=== PATIENT | male | born 1995 | race Caucasian/White ===

== ENCOUNTER 2016-09-11 22:36 | Emergency (ER) | payer OTHER ==
[2016-09-11] MEDS ORDERED: IBUPROFEN 800 MG TAB As Ordered ONE (23:39)
--- NOTE | 2016-09-11 23:47 | EDDOCDS ---
Physician Documentation [facility] Name: Mickey Montilla Age: 21 yrs Sex: Male : 1995 Arrival Date: 09/11/2016 Time: 22:36 Bed Triage 2 Private MD: [facility] - Pediatrics Disposition: 09/11/16 23:31 Discharged to Home/Self Care. Impression: Pain in right knee, Sprain of other specified parts of right knee. - Condition is Stable. - Discharge Instructions: Arthralgia, Knee Sprain. - Prescriptions for Ibuprofen 800 mg Oral Tablet - take 1 tablet by ORAL route every 8 hours As needed take with food; 30 tablet. - Medication Reconciliation, Local Pharmacy Hours form. - Follow up: [facility] - Pediatrics; When: Call to arrange an appointment; Reason: Recheck today's complaints, Continuance of care. Follow up: [facility]; When: Call to arrange an appointment; Reason: Recheck today's complaints, Continuance of care. - Problem is new. - Symptoms are unchanged. Historical: - Allergies: no known allergies; - Home Meds: 1. omeprazole 20 mg Oral cpDR 1 cap once daily (Last dose: 09/10/2016) - PMHx: GERD; Diabetes - NIDDM: controlled; chronic knee pain; - PSHx: none; - Social history: Smoking status: Patient states was never smoker of tobacco. Patient/guardian denies using alcohol, street drugs, No barriers to communication noted, The patient speaks fluent Zimbabwean, Speaks appropriately for age. - Family history: Not pertinent. - : The pt / caregiver states he / she is not on anticoagulants. Home medication list is obtained from the patient. - Exposure Risk Screening:: None identified. Vital Signs: 09/11 22:37 BP 155 / 86; Pulse 81; Resp 16; Temp 97.6(O); Pulse Ox 100% on R/A; Weight 99.79 kg / lr2 220 lbs (R); Height 5 ft. 9 in. (175.26 cm) (R); Pain 9/10; 23:43 Resp 16; Pain 8/10; lf1 22:37 Body Mass Index 32.49 (99.79 kg, 175.26 cm) lr2 MDM: 23:27 Justen Wrap ordered. mo1 23:28 Ibuprofen 800 mg PO once ordered. mo1 23:40 Financial registration complete. hs2 Administered Medications: 23:43 Drug: Ibuprofen 800 mg [ibuprofen 800 mg tablet (1 tabs)] Route: PO; lf1 23:46 Follow up: Response: Pt left department before re-evaluation is appropriate lf1 Signatures: Lolis Saucedo RN RN lf1 Elizabeth Barboza RN RN ttb O'Hagan, Michael, PA PA mo1 Yudi Saunders, Reg Reg hs2 MTDD
--- NOTE | 2016-09-11 23:47 | EDDOCDS ---
Nurse's Notes [facility] Name: Mickey Montilla Age: 21 yrs Sex: Male : 1995 Arrival Date: 09/11/2016 Time: 22:36 Bed Triage 2 Private MD: [facility] - Pediatric[facility] Diagnosis: Pain in right knee;Sprain of other specified parts of right knee Presentation: 09/11 22:47 Presenting complaint: Patient states: right knee pain : chronic. Adult Sepsis ttb Screening: The patient does not have new or worsening altered mentation. Patient's respiratory rate is less than 22. Systolic blood pressure is greater than 100. Patient has a qSOFA score of 0- Negative Sepsis Screen. Suicide/Homicide risk assessment- the patient denies having any suicidal and/or homicidal ideations and does not present with any other emotional, behavioral or mental health complaints. 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 Transition of care: patient was not received from another setting of care. 22:47 Acuity: TRAM Level 5 ttb 22:47 Method Of Arrival: Walkin/Carried/Asstd ttb Triage Assessment: 22:48 General: Appears in no apparent distress, well nourished, well groomed, Behavior is ttb appropriate for age, cooperative, pleasant. Pain: Location: medial aspect of right knee. HIV screening NA for this visit Offered previously. Cardiovascular: Chest pain is denied. Respiratory: No deficits noted. Airway is patent Denies cough, shortness of breath. Musculoskeletal: Range of motion intact in all extremities. Reports pain in right knee. Historical: - Allergies: no known allergies; - Home Meds: 1. omeprazole 20 mg Oral cpDR 1 cap once daily (Last dose: 09/10/2016) - PMHx: GERD; Diabetes - NIDDM: controlled; chronic knee pain; - PSHx: none; - Social history: Smoking status: Patient states was never smoker of tobacco. Patient/guardian denies using alcohol, street drugs, No barriers to communication noted, The patient speaks fluent [place] Rican, Speaks appropriately for age. - Family history: Not pertinent. - : The pt / caregiver states he / she is not on anticoagulants. Home medication list is obtained from the patient. - Exposure Risk Screening:: None identified. Screenin:54 Screening information is obtained from the patient. Fall risk: No risks identified. lf1 Assistance ADL's: requires no assistance with activities of daily living. Abuse/DV Screen: The patient / caregiver reports he/she is: not in a situation that causes fear, pain or injury. Nutritional screening: No deficits noted. Advance Directives: Currently, there is no health care proxy. home support is adequate. Assessment: 22:54 Adult Sepsis Screening: The patient does not have new or worsening altered mentation. lf1 Patient's respiratory rate is less than 22. Systolic blood pressure is greater than 100. Patient has a qSOFA score of 0- Negative Sepsis Screen. General: Appears in no apparent distress, comfortable, Behavior is cooperative. General: Pt. reports he has been a pt. of [facility] for the same problem. Pain: Location: medial aspect of right knee Pain currently is 8 out of 10 on a pain scale. Neurological: Level of Consciousness is awake, alert, Oriented to person, place, time. EENT: No deficits noted. Respiratory: Respiratory effort is even, unlabored. GI: Denies nausea, vomiting. : No deficits noted. Derm: Skin is intact. Musculoskeletal: Reports pain in medial aspect of right knee since chronic pain over several years that became worse today. 23:43 General: Appears in no apparent distress, comfortable, Behavior is cooperative. Pain: lf1 Location: medial aspect of right knee Pain currently is 8 out of 10 on a pain scale. Neurological: Level of Consciousness is awake, alert, Oriented to person, place, time. Respiratory: Respiratory effort is even, unlabored. GI: Denies nausea, vomiting. Derm: Skin is intact. Vital Signs: 22:37 BP 155 / 86; Pulse 81; Resp 16; Temp 97.6(O); Pulse Ox 100% on R/A; Weight 99.79 kg lr2 (R); Height 5 ft. 9 in. (175.26 cm) (R); Pain 9/10; 23:43 Resp 16; Pain 8/10; lf1 22:37 Body Mass Index 32.49 (99.79 kg, 175.26 cm) lr2 Vitals: 22:37 Log In Time: September 11, 2016 at 22:36. lr2 ED Course: 22:37 Patient visited by Annette Alexander. lr2 22:37 Patient moved to Waiting lr2 22:38 [facility] is Private Physician. lr2 22:39 Patient moved to Pre RCE lr2 22:47 Triage Initiated ttb 22:49 Patient moved to Triage 2 ttb 22:54 The patient / caregiver is instructed regarding the plan of care and ED course. lf1 22:57 Patient visited by Lolis Saucedo RN. lf1 23:12 Ousmane Hernandez PA is PHCP. mo1 23:13 Ryan Gregory DO is Attending Physician. mo1 23:16 Patient visited by Ousmane Hernandez PA. mo1 23:31 [facility] is Referral Physician. mo1 23:31 [facility] is Referral Physician. mo1 23:43 No IV's were initiated during this patient's visit. No procedures done that require lf1 assistance. Administered Medications: 23:43 Drug: Ibuprofen 800 mg [ibuprofen 800 mg tablet (1 tabs)] Route: PO; lf1 23:46 Follow up: Response: Pt left department before re-evaluation is appropriate lf1 Order Results: There are currently no results for this order. Outcome: 23:31 Discharge ordered by Provider. mo1 23:43 Discharge Assessment: Patient awake, alert and oriented x 3. No cognitive and/or lf1 functional deficits noted. Patient verbalized understanding of disposition instructions. Patient awake and alert. Oriented to person, place and time. Patient verbalized understanding of disposition instructions. patient administered narcotics - no. The following High Risk Discharge criteria are identified: None. Discharged to home ambulatory. Condition: improved. Discharge instructions given to patient, Instructed on discharge instructions, follow up and referral plans. medication usage, Rest, Ice, Compression and Elevation. Demonstrated understanding of instructions, medications, Pt was receptive of discharge instructions/ teaching. Prescriptions given X 1. No special radiology studies were completed. Property :Personal belongings accompany Pt. 23:46 Patient left the ED. lf1 Signatures: Lolis Saucedo RN RN lf1 Elizabeth Barboza RN RN ttb Ousmane Hernandez PA PA mo1 Annette Alexander lr2 MTDD
--- NOTE | 2016-09-14 00:47 | EDDOCDS ---
Physician Documentation [facility] Name: Mickey Montilla Age: 21 yrs Sex: Male : 1995 Arrival Date: 09/11/2016 Time: 22:36 Bed Triage 2 Private MD: [facility] - Pediatrics Disposition: 09/11/16 23:31 Discharged to Home/Self Care. Impression: Pain in right knee, Sprain of other specified parts of right knee. - Condition is Stable. - Discharge Instructions: Arthralgia, Knee Sprain. - Prescriptions for Ibuprofen 800 mg Oral Tablet - take 1 tablet by ORAL route every 8 hours As needed take with food; 30 tablet. - Medication Reconciliation, Local Pharmacy Hours form. - Follow up: [facility] - Pediatrics; When: Call to arrange an appointment; Reason: Recheck today's complaints, Continuance of care. Follow up: [facility]; When: Call to arrange an appointment; Reason: Recheck today's complaints, Continuance of care. - Problem is new. - Symptoms are unchanged. Historical: - Allergies: no known allergies; - Home Meds: 1. omeprazole 20 mg Oral cpDR 1 cap once daily (Last dose: 09/10/2016) - PMHx: GERD; Diabetes - NIDDM: controlled; chronic knee pain; - PSHx: none; - Social history: Smoking status: Patient states was never smoker of tobacco. Patient/guardian denies using alcohol, street drugs, No barriers to communication noted, The patient speaks fluent Armenian, Speaks appropriately for age. - Family history: Not pertinent. - : The pt / caregiver states he / she is not on anticoagulants. Home medication list is obtained from the patient. - Exposure Risk Screening:: None identified. Vital Signs: 09/11 22:37 BP 155 / 86; Pulse 81; Resp 16; Temp 97.6(O); Pulse Ox 100% on R/A; Weight 99.79 kg / lr2 220 lbs (R); Height 5 ft. 9 in. (175.26 cm) (R); Pain 9/10; 23:43 Resp 16; Pain 8/10; lf1 22:37 Body Mass Index 32.49 (99.79 kg, 175.26 cm) lr2 MDM: 23:27 Justen Wrap ordered. mo1 23:28 Ibuprofen 800 mg PO once ordered. mo1 23:40 Financial registration complete. hs2 09/12 02:16 [facility] Payment Agreement was scanned into [employer] and attached to record. hs2 09:50 T-Sheet-- Draft Copy was scanned into [employer] and attached to record. gb Administered Medications: 09/11 23:43 Drug: Ibuprofen 800 mg [ibuprofen 800 mg tablet (1 tabs)] Route: PO; lf1 23:46 Follow up: Response: Pt left department before re-evaluation is appropriate lf1 Signatures: Radha Maya, Reg Reg gb Lolis SaucedoRN RN lf1 Elizabeth Barboza RN RN ttb Ousmane Hernandez PA PA mo1 Yudi Saunders, Reg Reg hs2 The chart was reviewed and I authenticate all verbal orders and agree with the evaluation and treatment provided.Attachments: 09/12 02:16 [facility] Payment Agreement hs2 09:50 T-Sheet-- Draft Copy gb Chart Complete MTDD
--- NOTE | 2016-09-14 00:47 | EDDOCDS ---
Physician Documentation [facility] Name: Mickey Montilla Age: 21 yrs Sex: Male : 1995 Arrival Date: 09/11/2016 Time: 22:36 Bed Triage 2 Private MD: [facility] - Pediatrics Disposition: 09/11/16 23:31 Discharged to Home/Self Care. Impression: Pain in right knee, Sprain of other specified parts of right knee. - Condition is Stable. - Discharge Instructions: Arthralgia, Knee Sprain. - Prescriptions for Ibuprofen 800 mg Oral Tablet - take 1 tablet by ORAL route every 8 hours As needed take with food; 30 tablet. - Medication Reconciliation, Local Pharmacy Hours form. - Follow up: [facility] - Pediatrics; When: Call to arrange an appointment; Reason: Recheck today's complaints, Continuance of care. Follow up: [facility]; When: Call to arrange an appointment; Reason: Recheck today's complaints, Continuance of care. - Problem is new. - Symptoms are unchanged. Historical: - Allergies: no known allergies; - Home Meds: 1. omeprazole 20 mg Oral cpDR 1 cap once daily (Last dose: 09/10/2016) - PMHx: GERD; Diabetes - NIDDM: controlled; chronic knee pain; - PSHx: none; - Social history: Smoking status: Patient states was never smoker of tobacco. Patient/guardian denies using alcohol, street drugs, No barriers to communication noted, The patient speaks fluent Mongolian, Speaks appropriately for age. - Family history: Not pertinent. - : The pt / caregiver states he / she is not on anticoagulants. Home medication list is obtained from the patient. - Exposure Risk Screening:: None identified. Vital Signs: 09/11 22:37 BP 155 / 86; Pulse 81; Resp 16; Temp 97.6(O); Pulse Ox 100% on R/A; Weight 99.79 kg / lr2 220 lbs (R); Height 5 ft. 9 in. (175.26 cm) (R); Pain 9/10; 23:43 Resp 16; Pain 8/10; lf1 22:37 Body Mass Index 32.49 (99.79 kg, 175.26 cm) lr2 MDM: 23:27 Justen Wrap ordered. mo1 23:28 Ibuprofen 800 mg PO once ordered. mo1 23:40 Financial registration complete. hs2 09/12 02:16 [facility] Payment Agreement was scanned into [employer] and attached to record. hs2 09:50 T-Sheet-- Draft Copy was scanned into [employer] and attached to record. gb Administered Medications: 09/11 23:43 Drug: Ibuprofen 800 mg [ibuprofen 800 mg tablet (1 tabs)] Route: PO; lf1 23:46 Follow up: Response: Pt left department before re-evaluation is appropriate lf1 Signatures: Radha Maya, Reg Reg gb Lolis SaucedoRN RN lf1 Elizabeth Barboza RN RN ttb Ousmane Hernandez PA PA mo1 Yudi Saunders, Reg Reg hs2 The chart was reviewed and I authenticate all verbal orders and agree with the evaluation and treatment provided.Attachments: 09/12 02:16 [facility] Payment Agreement hs2 09:50 T-Sheet-- Draft Copy gb Chart Complete MTDD
--- NOTE | 2016-09-14 00:47 | EDDOCDS ---
Nurse's Notes [facility] Name: Mickey Montilla Age: 21 yrs Sex: Male : 1995 Arrival Date: 09/11/2016 Time: 22:36 Bed Triage 2 Private MD: [facility] - Pediatrics Diagnosis: Pain in right knee;Sprain of other specified parts of right knee Presentation: 09/11 22:47 Presenting complaint: Patient states: right knee pain : chronic. Adult Sepsis ttb Screening: The patient does not have new or worsening altered mentation. Patient's respiratory rate is less than 22. Systolic blood pressure is greater than 100. Patient has a qSOFA score of 0- Negative Sepsis Screen. Suicide/Homicide risk assessment- the patient denies having any suicidal and/or homicidal ideations and does not present with any other emotional, behavioral or mental health complaints. 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 Transition of care: patient was not received from another setting of care. 22:47 Acuity: TRAM Level 5 ttb 22:47 Method Of Arrival: Walkin/Carried/Asstd ttb Triage Assessment: 22:48 General: Appears in no apparent distress, well nourished, well groomed, Behavior is ttb appropriate for age, cooperative, pleasant. Pain: Location: medial aspect of right knee. HIV screening NA for this visit Offered previously. Cardiovascular: Chest pain is denied. Respiratory: No deficits noted. Airway is patent Denies cough, shortness of breath. Musculoskeletal: Range of motion intact in all extremities. Reports pain in right knee. Historical: - Allergies: no known allergies; - Home Meds: 1. omeprazole 20 mg Oral cpDR 1 cap once daily (Last dose: 09/10/2016) - PMHx: GERD; Diabetes - NIDDM: controlled; chronic knee pain; - PSHx: none; - Social history: Smoking status: Patient states was never smoker of tobacco. Patient/guardian denies using alcohol, street drugs, No barriers to communication noted, The patient speaks fluent Macanese, Speaks appropriately for age. - Family history: Not pertinent. - : The pt / caregiver states he / she is not on anticoagulants. Home medication list is obtained from the patient. - Exposure Risk Screening:: None identified. Screenin:54 Screening information is obtained from the patient. Fall risk: No risks identified. lf1 Assistance ADL's: requires no assistance with activities of daily living. Abuse/DV Screen: The patient / caregiver reports he/she is: not in a situation that causes fear, pain or injury. Nutritional screening: No deficits noted. Advance Directives: Currently, there is no health care proxy. home support is adequate. Assessment: 22:54 Adult Sepsis Screening: The patient does not have new or worsening altered mentation. lf1 Patient's respiratory rate is less than 22. Systolic blood pressure is greater than 100. Patient has a qSOFA score of 0- Negative Sepsis Screen. General: Appears in no apparent distress, comfortable, Behavior is cooperative. General: Pt. reports he has been a pt. of [facility] for the same problem. Pain: Location: medial aspect of right knee Pain currently is 8 out of 10 on a pain scale. Neurological: Level of Consciousness is awake, alert, Oriented to person, place, time. EENT: No deficits noted. Respiratory: Respiratory effort is even, unlabored. GI: Denies nausea, vomiting. : No deficits noted. Derm: Skin is intact. Musculoskeletal: Reports pain in medial aspect of right knee since chronic pain over several years that became worse today. 23:43 General: Appears in no apparent distress, comfortable, Behavior is cooperative. Pain: lf1 Location: medial aspect of right knee Pain currently is 8 out of 10 on a pain scale. Neurological: Level of Consciousness is awake, alert, Oriented to person, place, time. Respiratory: Respiratory effort is even, unlabored. GI: Denies nausea, vomiting. Derm: Skin is intact. Vital Signs: 22:37 BP 155 / 86; Pulse 81; Resp 16; Temp 97.6(O); Pulse Ox 100% on R/A; Weight 99.79 kg lr2 (R); Height 5 ft. 9 in. (175.26 cm) (R); Pain 9/10; 23:43 Resp 16; Pain 8/10; lf1 22:37 Body Mass Index 32.49 (99.79 kg, 175.26 cm) lr2 Vitals: 22:37 Log In Time: September 11, 2016 at 22:36. lr2 ED Course: 22:37 Patient visited by Annette Alexander. lr2 22:37 Patient moved to Waiting lr2 22:38 [facility] is Private Physician. lr2 22:39 Patient moved to Pre RCE lr2 22:47 Triage Initiated ttb 22:49 Patient moved to Triage 2 ttb 22:54 The patient / caregiver is instructed regarding the plan of care and ED course. lf1 22:57 Patient visited by Lolis Saucedo RN. lf1 23:12 Ousmane Hernandez PA is PHCP. mo1 23:13 Ryan Gregory DO is Attending Physician. mo1 23:16 Patient visited by Ousmane Hernandez PA. mo1 23:31 [facility] is Referral Physician. mo1 23:31 [facility] is Referral Physician. mo1 23:43 No IV's were initiated during this patient's visit. No procedures done that require lf1 assistance. 09/12 02:16 [facility] Payment Agreement was scanned into [employer] and attached to record. hs2 09:50 T-Sheet-- Draft Copy was scanned into [employer] and attached to record. gb Administered Medications: 09/11 23:43 Drug: Ibuprofen 800 mg [ibuprofen 800 mg tablet (1 tabs)] Route: PO; lf1 23:46 Follow up: Response: Pt left department before re-evaluation is appropriate lf1 Order Results: There are currently no results for this order. Outcome: 23:31 Discharge ordered by Provider. mo1 23:43 Discharge Assessment: Patient awake, alert and oriented x 3. No cognitive and/or lf1 functional deficits noted. Patient verbalized understanding of disposition instructions. Patient awake and alert. Oriented to person, place and time. Patient verbalized understanding of disposition instructions. patient administered narcotics - no. The following High Risk Discharge criteria are identified: None. Discharged to home ambulatory. Condition: improved. Discharge instructions given to patient, Instructed on discharge instructions, follow up and referral plans. medication usage, Rest, Ice, Compression and Elevation. Demonstrated understanding of instructions, medications, Pt was receptive of discharge instructions/ teaching. Prescriptions given X 1. No special radiology studies were completed. Property :Personal belongings accompany Pt. 23:46 Patient left the ED. lf1 Signatures: Radha Maya, Reg Reg gb Lolis Saucedo,COOKIE RN lf1 Elizabeth Barboza RN RN ttb Ousmane Hernandez PA PA mo1 Yudi Saunders, Reg Reg hs2 Annette Alexander lr2 Chart Complete MTDD
== END 2016-09-11 23:46 | disposition home or self-care (01) ==
LOC: M ED 22:36
DX: S83.91XA Sprain of unspecified site of right knee, initial encounter (principal); X58.XXXA Exposure to other specified factors, initial encounter; Y92.89 Other specified places as the place of occurrence of the external cause; Y93.89 Activity, other specified; Y99.8 Other external cause status; G89.29 Other chronic pain; E11.9 Type 2 diabetes mellitus without complications; K21.9 Gastro-esophageal reflux disease without esophagitis; Z79.899 Other long term (current) drug therapy

== ENCOUNTER 2016-09-27 00:56 | Emergency (ER) | payer OTHER ==
[2016-09-27] MEDS ORDERED: KETOROLAC 30 MG/ML VIAL (J1885) IV ONE (01:45)
[2016-09-27] MEDS ORDERED: NS 1,000 ML IV ONE (01:45)
[2016-09-27 02:30] LABS: BASO % 0.5 % (0.0-1.0); EOS # 0.2 K/mm3 (0.0-0.50); EOS % 2.3 % (0.0-3.0); LARGE UNSTAINED CELL # 0.1 K/mm3 (0.0-0.4); LARGE UNSTAINED CELL % 1.2 % (0.0-4.0); LYMPH # 2.3 K/mm3 (1.5-6.5); LYMPH % 28.1 % (24.0-44.0); MEAN CORPUSCULAR HEMOGLOBIN 28.7 pg (27.0-33.0); MEAN CORPUSCULAR HGB CONC 33.5 g/dl (32.0-36.5); MEAN CORPUSCULAR VOLUME 85.9 fl (80.0-96.0); MONO # 0.4 K/mm3 (0.0-0.8); MONO % 4.4 % (0.0-5.0); NEUTROPHILS # 5.1 K/mm3 (1.8-7.7); NEUTROPHILS % 63.5 % (36.0-66.0); PLATELET COUNT, AUTOMATED 211 k/mm3 (150-450); RED CELL DISTRIBUTION WIDTH 12.7 % (11.5-14.5); WHITE BLOOD COUNT 8.1 K/mm3 (4.0-10.0)
[2016-09-27 03:16] LABS: ALBUMIN/GLOBULIN RATIO 1.18 (1.00-1.93); ALKALINE PHOSPHATASE 83 U/L (45-117); ALT/SGPT 106 U/L (12-78); AMYLASE 48 U/L (25-115); ANION GAP 10 MEQ/L (8-16); AST/SGOT 36 U/L (15-37); BILIRUBIN,DIRECT < 0.1 MG/DL (0.0-0.2); BILIRUBIN,TOTAL 0.2 MG/DL (0.2-1.0); BLOOD UREA NITROGEN 10 MG/DL (7-18); CALCIUM LEVEL 8.1 MG/DL (8.5-10.1); CARBON DIOXIDE LEVEL 23 MEQ/L (21-32); CHLORIDE LEVEL 106 MEQ/L (98-107); CREATININE FOR GFR 0.93 MG/DL (0.70-1.30); GLOMERULAR FILTRATION RATE > 60.0 (>60); GLUCOSE, FASTING 353 MG/DL (70-105); POTASSIUM SERUM 4.5 MEQ/L (3.5-5.1); SODIUM LEVEL 139 MEQ/L (136-145); TOTAL PROTEIN 7.4 GM/DL (6.4-8.2)
[2016-09-27 04:21] VITALS: BP 164/79
== END 2016-09-27 04:30 | disposition home or self-care (01) ==
LOC: M ED 03:15
DX: R10.9 Unspecified abdominal pain (principal); R19.7 Diarrhea, unspecified; E11.65 Type 2 diabetes mellitus with hyperglycemia
CPT/HCPCS: 80048; 80076; 81001; 82150; 83690; 85025; 96361; 96374; 99282; J1885

== ENCOUNTER 2016-12-24 13:31 | Emergency (ER) | payer OTHER ==
[~2016-12-24] VITALS: Ht 175.3 cm; Wt 99.8 kg
[2016-12-24 13:31] VITALS: BP 142/72
--- NOTE | 2016-12-24 14:09 | REP ---
Right thumb four views : There is no fracture or dislocation. Mineralization and joint spaces are normal. There are no calcifications or foreign bodies. Impression: Negative right thumb . Signed by Drew Knox MD 12/24/2016 02:01 P
== END 2016-12-24 14:15 | disposition home or self-care (01) ==
LOC: M ED 14:04
DX: S63.601A Unspecified sprain of right thumb, initial encounter (principal); W23.1XXA Caught, crushed, jammed, or pinched between stationary objects, initial encounter; Y92.099 Unspecified place in other non-institutional residence as the place of occurrence of the external cause; Y93.89 Activity, other specified; Y99.9 Unspecified external cause status

== ENCOUNTER 2017-04-27 10:32 | Emergency (ER) | payer OTHER ==
[~2017-04-27] VITALS: Ht 175.3 cm; Wt 102.3 kg
[2017-04-27] MEDS ORDERED: OMEP40CA2 PO (10:44)
[2017-04-27 10:58] LABS: BASO # 0.1 10^3/uL (0.0-0.2); BASO % 0.7 % (0.0-1.0); EOS # 0.4 10^3/uL (0.0-0.50); EOS % 5.8 % (0.0-3.0); IMMATURE GRANULOCYTE % 0.1 % (0-0); LYMPH # 2.9 10^3/uL (1.5-6.5); LYMPH % 38.3 % (24.0-44.0); MEAN CORPUSCULAR HEMOGLOBIN 29.2 pg (27.0-33.0); MEAN CORPUSCULAR HGB CONC 34.6 g/dl (32.0-36.5); MEAN CORPUSCULAR VOLUME 84.3 fl (80.0-96.0); MONO # 0.4 10^3/uL (0.0-0.8); MONO % 5.7 % (0.0-5.0); NEUTROPHILS # 3.8 10^3/uL (1.8-7.7); NEUTROPHILS % 49.4 % (36.0-66.0); PLATELET COUNT, AUTOMATED 185 10^3/uL (150-450); RED CELL DISTRIBUTION WIDTH 12.2 % (11.5-14.5); WHITE BLOOD COUNT 7.6 10^3/uL (4.0-10.0)
[2017-04-27] MEDS ORDERED: NS 1,000 ML IV ONE (11:00)
[2017-04-27] MEDS ORDERED: KETOROLAC 30 MG/ML VIAL (J1885) IV ONE (11:00)
[2017-04-27] MEDS ORDERED: METOCLOPRAMIDE INJ 10MG/2ML VIAL (J2765) IV ONE (11:00)
[2017-04-27 11:36] LABS: ALBUMIN 4.1 GM/DL (3.2-5.2); ALBUMIN/GLOBULIN RATIO 1.24 (1.00-1.93); ALKALINE PHOSPHATASE 69 U/L (45-117); ALT/SGPT 136 U/L (12-78); ANION GAP 6 MEQ/L (8-16); AST/SGOT 50 U/L (15-37); BILIRUBIN,DIRECT < 0.1 MG/DL (0.0-0.2); BILIRUBIN,TOTAL 0.4 MG/DL (0.2-1.0); BLOOD UREA NITROGEN 13 MG/DL (7-18); CALCIUM LEVEL 9.2 MG/DL (8.5-10.1); CARBON DIOXIDE LEVEL 27 MEQ/L (21-32); CHLORIDE LEVEL 107 MEQ/L (98-107); CREATININE FOR GFR 0.96 MG/DL (0.70-1.30); GLOMERULAR FILTRATION RATE > 60.0 (>60); GLUCOSE, FASTING 117 MG/DL (70-105); SODIUM LEVEL 140 MEQ/L (136-145); TOTAL PROTEIN 7.4 GM/DL (6.4-8.2)
--- NOTE | 2017-04-27 12:49 | REP ---
CT abdomen and pelvis without IV or oral contrast: History: Left flank and upper quadrant pain. No comparison abdomen CT study. Findings: Preliminary digital rehab technician radiograph is unremarkable. The lung bases show no focal infiltrate. No pleural effusion is seen. There is fairly severe diffuse fatty infiltration of the liver with areas of fat sparing in the left lobe and near the gallbladder. The liver is felt to be enlarged with the midclavicular line craniocaudal span of 20.4 mm. The spleen is unremarkable. No adrenal lesion is seen. The pancreas is unremarkable. No gallbladder abnormality is seen. The kidneys show no evidence of intrarenal calculus or hydronephrosis. No ureteral stone is seen. Bladder, seminal vesicles, and prostate are unremarkable. A normal appendix is seen coursing across the midline. Small and large bowel loops are unremarkable. No abdominal wall defect is seen. No bony destructive lesion is seen. Impression: Rather marked diffuse fatty infiltration of the liver. Hepatomegaly. No other significant intra-abdominal abnormality. Signed by Charly Barahona MD 04/27/2017 05:09 P
[2017-04-27 12:58] VITALS: BP 129/71
== END 2017-04-27 12:59 | disposition home or self-care (01) ==
LOC: M ED 10:32
DX: R10.9 Unspecified abdominal pain (principal); E11.9 Type 2 diabetes mellitus without complications
CPT/HCPCS: 74176; 80048; 80076; 81001; 83690; 85025; 96374; 96375; 99284; J1885; J2765

== ENCOUNTER 2017-04-29 21:32 | Emergency (ER) | payer OTHER ==
[~2017-04-29] VITALS: Ht 175.3 cm; Wt 102.3 kg
[~2017-04-29 21:32] MED LIST: OMEP40CA2 PO
[2017-04-30] MEDS ORDERED: TESS100C PO (01:20)
[2017-04-30] MEDS ORDERED: PROAAER10 INH (01:22)
[2017-04-30 01:27] VITALS: BP 132/73
[2017-04-30] MEDS ORDERED: BENZONATATE 100 MG CAP PO ONE (01:30)
== END 2017-04-30 01:36 | disposition home or self-care (01) ==
LOC: M ED 21:32
DX: J06.9 Acute upper respiratory infection, unspecified (principal); Z79.899 Other long term (current) drug therapy

== ENCOUNTER 2017-08-11 15:35 | Emergency (ER) | payer OTHER ==
[2017-08-11] MEDS: NS 1,000 ML IV (17:39)
[2017-08-11] MEDS: ONDANSETRON 4MG/2ML VIAL (J2405) IV (17:44)
[2017-08-11 17:53] LABS: BASO # 0.1 10^3/uL (0.0-0.2); BASO % 0.6 % (0.0-1.0); EOS # 0.2 10^3/uL (0.0-0.50); EOS % 2.8 % (0.0-3.0); HEMATOCRIT 43.3 % (42.0-52.0); HEMOGLOBIN 15.3 g/dl (14.0-18.0); IMMATURE GRANULOCYTE % 0.2 % (0-0); LYMPH # 2.8 10^3/uL (1.5-6.5); LYMPH % 34.3 % (24.0-44.0); MEAN CORPUSCULAR HEMOGLOBIN 29.5 pg (27.0-33.0); MEAN CORPUSCULAR HGB CONC 35.3 g/dl (32.0-36.5); MEAN CORPUSCULAR VOLUME 83.6 fl (80.0-96.0); MONO # 0.5 10^3/uL (0.0-0.8); MONO % 6.1 % (0.0-5.0); NEUTROPHILS # 4.6 10^3/uL (1.8-7.7); PLATELET COUNT, AUTOMATED 218 10^3/uL (150-450); RED BLOOD COUNT 5.18 10^6/uL (4.30-6.10); RED CELL DISTRIBUTION WIDTH 12.1 % (11.5-14.5); WHITE BLOOD COUNT 8.3 10^3/uL (4.0-10.0)
[2017-08-11 18:10] LABS: ESTIMATED AVERAGE GLUCOSE 128 MG/DL (60-110); HEMOGLOBIN A1c 6.1 %
[2017-08-11 18:17] LABS: ALBUMIN 4.1 GM/DL (3.2-5.2); ALBUMIN/GLOBULIN RATIO 1.17 (1.00-1.93); ALKALINE PHOSPHATASE 70 U/L (45-117); ALT/SGPT 148 U/L (12-78); ANION GAP 7 MEQ/L (8-16); AST/SGOT 62 U/L (7-37); BILIRUBIN,DIRECT < 0.1 MG/DL (0.0-0.2); BILIRUBIN,TOTAL 0.4 MG/DL (0.2-1.0); BLOOD UREA NITROGEN 15 MG/DL (7-18); CALCIUM LEVEL 8.6 MG/DL (8.5-10.1); CARBON DIOXIDE LEVEL 27 MEQ/L (21-32); CHLORIDE LEVEL 106 MEQ/L (98-107); CREATININE FOR GFR 0.99 MG/DL (0.70-1.30); GLOMERULAR FILTRATION RATE > 60.0 (>60); GLUCOSE, FASTING 106 MG/DL (70-100); LIPASE 135 U/L (73-393); POTASSIUM SERUM 4.1 MEQ/L (3.5-5.1); SODIUM LEVEL 140 MEQ/L (136-145); TOTAL PROTEIN 7.6 GM/DL (6.4-8.2)
== END 2017-08-11 18:42 | disposition home or self-care (01) ==
LOC: M ED 15:35
DX: J06.9 Acute upper respiratory infection, unspecified (principal); R11.0 Nausea; R19.7 Diarrhea, unspecified; E11.9 Type 2 diabetes mellitus without complications; K21.9 Gastro-esophageal reflux disease without esophagitis; Z79.899 Other long term (current) drug therapy
CPT/HCPCS: 71046

== ENCOUNTER 2017-08-18 04:53 | Emergency (ER) | payer OTHER ==
[2017-08-18 06:28] LABS: BEDSIDE GLUCOSE 151 MG/DL (70-105)
[2017-08-18 06:58] LABS: INFLUENZA A AMPLIFICATION POSITIVE (NEGATIVE); INFLUENZA B AMPLIFICATION NEGATIVE (NEGATIVE)
[2017-08-18] MEDS: ACETAMINOPHEN 325 MG TAB PO (07:45)
== END 2017-08-18 07:49 | disposition home or self-care (01) ==
LOC: M ED 04:53
DX: J10.1 Influenza due to other identified influenza virus with other respiratory manifestations (principal); E11.65 Type 2 diabetes mellitus with hyperglycemia; F17.200 Nicotine dependence, unspecified, uncomplicated
CPT/HCPCS: 71046

== ENCOUNTER 2017-08-18 15:55 | Emergency (ER) | payer OTHER ==
[2017-08-18] MEDS: IBUPROFEN 800 MG TAB PO (17:19)
[2017-08-18 17:33] LABS: BEDSIDE GLUCOSE 94 MG/DL (70-105)
[2017-08-18 17:56] LABS: BASO % 0.2 % (0.0-1.0); EOS % 0.4 % (0.0-3.0); HEMATOCRIT 48.9 % (42.0-52.0); HEMOGLOBIN 16.5 g/dl (14.0-18.0); IMMATURE GRANULOCYTE % 0.2 % (0-0); LYMPH # 1.5 10^3/uL (1.5-6.5); LYMPH % 17.4 % (24.0-44.0); MEAN CORPUSCULAR HEMOGLOBIN 28.3 pg (27.0-33.0); MEAN CORPUSCULAR HGB CONC 33.7 g/dl (32.0-36.5); MEAN CORPUSCULAR VOLUME 83.9 fl (80.0-96.0); MONO # 0.5 10^3/uL (0.0-0.8); NEUTROPHILS # 6.4 10^3/uL (1.8-7.7); NEUTROPHILS % 75.8 % (36.0-66.0); PLATELET COUNT, AUTOMATED 189 10^3/uL (150-450); RED BLOOD COUNT 5.83 10^6/uL (4.30-6.10); RED CELL DISTRIBUTION WIDTH 12.1 % (11.5-14.5); WHITE BLOOD COUNT 8.5 10^3/uL (4.0-10.0)
[2017-08-18 18:10] LABS: GLUCOSE, FASTING 103 MG/DL (70-100)
[2017-08-18 18:11] LABS: ANION GAP 7 MEQ/L (8-16); BLOOD UREA NITROGEN 11 MG/DL (7-18); CALCIUM LEVEL 9.4 MG/DL (8.5-10.1); CARBON DIOXIDE LEVEL 28 MEQ/L (21-32); CHLORIDE LEVEL 103 MEQ/L (98-107); CPK CREATINE PHOSPHOKINASE 131 U/L (39-308); CREATININE FOR GFR 1.04 MG/DL (0.70-1.30); GLOMERULAR FILTRATION RATE > 60.0 (>60); POTASSIUM SERUM 3.9 MEQ/L (3.5-5.1); SODIUM LEVEL 138 MEQ/L (136-145)
== END 2017-08-18 18:38 | disposition home or self-care (01) ==
LOC: M ED 15:55
DX: J09.X2 Influenza due to identified novel influenza A virus with other respiratory manifestations (principal); Z79.899 Other long term (current) drug therapy
CPT/HCPCS: 82550

== ENCOUNTER 2017-10-07 20:32 | Emergency (ER) | payer OTHER ==
[2017-10-07] MEDS ORDERED: ISOVUE-370 76% 100ML VIAL (Q9967) As Ordered (22:30)
[2017-10-08] MEDS: IBUPROFEN 600 MG TAB PO (00:45)
[2017-10-08 01:08] LABS: BASO % 0.4 % (0.0-1.0); EOS # 0.3 10^3/uL (0.0-0.50); EOS % 2.8 % (0.0-3.0); HEMATOCRIT 45.1 % (42.0-52.0); HEMOGLOBIN 15.5 g/dl (14.0-18.0); IMMATURE GRANULOCYTE % 0.1 % (0-3.0); LYMPH # 3.3 10^3/uL (1.5-6.5); LYMPH % 36.1 % (24.0-44.0); MEAN CORPUSCULAR HEMOGLOBIN 28.9 pg (27.0-33.0); MEAN CORPUSCULAR HGB CONC 34.4 g/dl (32.0-36.5); MEAN CORPUSCULAR VOLUME 84.1 fl (80.0-96.0); MONO # 0.7 10^3/uL (0.0-0.8); MONO % 7.2 % (0.0-5.0); NEUTROPHILS # 4.9 10^3/uL (1.8-7.7); NEUTROPHILS % 53.4 % (36.0-66.0); PLATELET COUNT, AUTOMATED 219 10^3/uL (150-450); RED BLOOD COUNT 5.36 10^6/uL (4.30-6.10); RED CELL DISTRIBUTION WIDTH 12.2 % (11.5-14.5); WHITE BLOOD COUNT 9.2 10^3/uL (4.0-10.0)
[2017-10-08 01:28] LABS: ANION GAP 4 MEQ/L (8-16); BLOOD UREA NITROGEN 9 MG/DL (7-18); CALCIUM LEVEL 9.3 MG/DL (8.5-10.1); CARBON DIOXIDE LEVEL 30 MEQ/L (21-32); CHLORIDE LEVEL 104 MEQ/L (98-107); CREATININE FOR GFR 0.95 MG/DL (0.70-1.30); GLOMERULAR FILTRATION RATE > 60.0 (>60); GLUCOSE, FASTING 131 MG/DL (70-100); POTASSIUM SERUM 4.2 MEQ/L (3.5-5.1); SODIUM LEVEL 138 MEQ/L (136-145)
== END 2017-10-08 03:01 | disposition home or self-care (01) ==
LOC: M ED 10-08 03:01
DX: S83.91XA Sprain of unspecified site of right knee, initial encounter (principal); X58.XXXA Exposure to other specified factors, initial encounter; Y92.89 Other specified places as the place of occurrence of the external cause; E11.9 Type 2 diabetes mellitus without complications; K21.9 Gastro-esophageal reflux disease without esophagitis; F17.200 Nicotine dependence, unspecified, uncomplicated
CPT/HCPCS: Q9967

== ENCOUNTER 2017-10-08 16:06 | Emergency (ER) | payer OTHER | END 2017-10-08 17:07 | disposition home or self-care (01) | LOC: M ED 16:06 | DX: M25.561 Pain in right knee (principal); E11.9 Type 2 diabetes mellitus without complications; K21.9 Gastro-esophageal reflux disease without esophagitis; F17.200 Nicotine dependence, unspecified, uncomplicated | CPT/HCPCS: 99282 ==

== ENCOUNTER 2018-01-19 12:27 | Emergency (ER) | payer OTHER ==
[2018-01-19 15:05] LABS: HEMATOCRIT 46.6 % (42.0-52.0); HEMOGLOBIN 16.2 g/dl (13.5-17.5); MEAN CORPUSCULAR HEMOGLOBIN 29.3 pg (27.0-33.0); MEAN CORPUSCULAR HGB CONC 34.8 g/dl (32.0-36.5); MEAN CORPUSCULAR VOLUME 84.4 fl (80.0-96.0); PLATELET COUNT, AUTOMATED 234 10^3/uL (150-450); RED BLOOD COUNT 5.52 10^6/uL (4.30-6.10); RED CELL DISTRIBUTION WIDTH 11.9 % (11.5-14.5); WHITE BLOOD COUNT 8.6 10^3/uL (4.0-10.0)
[2018-01-19 15:34] LABS: ALBUMIN 4.8 GM/DL (3.2-5.2); ALBUMIN/GLOBULIN RATIO 1.33 (1.00-1.93); ALKALINE PHOSPHATASE 86 U/L (45-117); ALT/SGPT 155 U/L (12-78); ANION GAP 8 MEQ/L (8-16); AST/SGOT 55 U/L (7-37); BILIRUBIN,DIRECT 0.2 MG/DL (0.0-0.2); BILIRUBIN,TOTAL 0.7 MG/DL (0.2-1.0); BLOOD UREA NITROGEN 9 MG/DL (7-18); CALCIUM LEVEL 9.4 MG/DL (8.5-10.1); CARBON DIOXIDE LEVEL 27 MEQ/L (21-32); CHLORIDE LEVEL 108 MEQ/L (98-107); CREATININE FOR GFR 1.15 MG/DL (0.70-1.30); ETHYL ALCOHOL (ETHANOL) < 0.003 % (0.000-0.010); GLOMERULAR FILTRATION RATE > 60.0 (>60); GLUCOSE, FASTING 108 MG/DL (70-100); POTASSIUM SERUM 3.9 MEQ/L (3.5-5.1); SALICYLATE LEVEL < 1.7 MG/DL (5.0-30.0); SODIUM LEVEL 143 MEQ/L (136-145); THYROID STIMULATING HORMONE 0.914 uIU/ML (0.358-3.740); TOTAL PROTEIN 8.4 GM/DL (6.4-8.2)
[2018-01-19 15:37] LABS: ACETAMINOPHEN LEVEL < 2.0 UG/ML (10.0-30.0)
[2018-01-19 18:18] LABS: AMPHETAMINES LEVEL URINE NEGATIVE (NEGATIVE); BARBITURATES URINE NEGATIVE (NEGATIVE); BENZODIAZEPINES URINE NEGATIVE (NEGATIVE); CANNABINOIDS URINE NEGATIVE (NEGATIVE); COCAINE METABOLITE URINE NEGATIVE (NEGATIVE); METHADONE URINE NEGATIVE (NEGATIVE); OPIATES URINE NEGATIVE (NEGATIVE); PHENCYCLIDINE URINE NEGATIVE (NEGATIVE)
== END 2018-01-19 18:43 | disposition home or self-care (01) ==
LOC: M ED 12:27
DX: F43.20 Adjustment disorder, unspecified (principal); E11.9 Type 2 diabetes mellitus without complications; Z79.899 Other long term (current) drug therapy
CPT/HCPCS: 80320

== ENCOUNTER 2018-02-02 12:18 | Emergency (ER) | payer OTHER | END 2018-02-02 13:09 | disposition home or self-care (01) | LOC: M ED 12:18 | DX: L50.1 Idiopathic urticaria (principal); L30.9 Dermatitis, unspecified; E11.9 Type 2 diabetes mellitus without complications; Z87.891 Personal history of nicotine dependence | CPT/HCPCS: 99282 ==

== ENCOUNTER 2018-03-13 08:38 | Emergency (ER) | payer OTHER ==
[2018-03-13 09:23] LABS: BASO % 0.4 % (0.0-1.0); EOS # 0.1 10^3/uL (0.0-0.50); EOS % 1.5 % (0.0-3.0); HEMATOCRIT 44.3 % (42.0-52.0); HEMOGLOBIN 15.1 g/dl (13.5-17.5); IMMATURE GRANULOCYTE % 0.3 % (0-3.0); LYMPH # 2.3 10^3/uL (1.5-6.5); LYMPH % 32.2 % (24.0-44.0); MEAN CORPUSCULAR HEMOGLOBIN 29.2 pg (27.0-33.0); MEAN CORPUSCULAR HGB CONC 34.1 g/dl (32.0-36.5); MEAN CORPUSCULAR VOLUME 85.7 fl (80.0-96.0); MONO # 0.4 10^3/uL (0.0-0.8); MONO % 5.6 % (0.0-5.0); NEUTROPHILS # 4.4 10^3/uL (1.8-7.7); PLATELET COUNT, AUTOMATED 227 10^3/uL (150-450); RED BLOOD COUNT 5.17 10^6/uL (4.30-6.10); RED CELL DISTRIBUTION WIDTH 12.4 % (11.5-14.5); WHITE BLOOD COUNT 7.3 10^3/uL (4.0-10.0)
[2018-03-13] MEDS: ACETAMINOPHEN 325 MG TAB PO (09:30)
[2018-03-13] MEDS: NS 1,000 ML IV (09:30)
[2018-03-13 09:52] LABS: ANION GAP 7 MEQ/L (8-16); BLOOD UREA NITROGEN 8 MG/DL (7-18); CALCIUM LEVEL 8.9 MG/DL (8.5-10.1); CARBON DIOXIDE LEVEL 27 MEQ/L (21-32); CHLORIDE LEVEL 106 MEQ/L (98-107); CREATININE FOR GFR 0.96 MG/DL (0.70-1.30); GLOMERULAR FILTRATION RATE > 60.0 (>60); GLUCOSE, FASTING 110 MG/DL (70-100); MAGNESIUM LEVEL 2.2 MG/DL (1.8-2.4); POTASSIUM SERUM 4.1 MEQ/L (3.5-5.1); SODIUM LEVEL 140 MEQ/L (136-145)
== END 2018-03-13 12:55 | disposition home or self-care (01) ==
LOC: M ED 08:38
DX: R55 Syncope and collapse (principal); E11.9 Type 2 diabetes mellitus without complications
CPT/HCPCS: 93005

== ENCOUNTER 2018-03-17 17:00 | Emergency (ER) | payer OTHER ==
[2018-03-17 17:39] LABS: BASO % 0.4 % (0.0-1.0); EOS # 0.1 10^3/uL (0.0-0.50); EOS % 1.3 % (0.0-3.0); HEMATOCRIT 43.4 % (42.0-52.0); HEMOGLOBIN 14.9 g/dl (13.5-17.5); IMMATURE GRANULOCYTE % 0.2 % (0-3.0); LYMPH # 3.1 10^3/uL (1.5-6.5); LYMPH % 31.3 % (24.0-44.0); MEAN CORPUSCULAR HGB CONC 34.3 g/dl (32.0-36.5); MEAN CORPUSCULAR VOLUME 87.5 fl (80.0-96.0); MONO # 0.7 10^3/uL (0.0-0.8); MONO % 7.2 % (0.0-5.0); NEUTROPHILS % 59.6 % (36.0-66.0); PLATELET COUNT, AUTOMATED 229 10^3/uL (150-450); RED BLOOD COUNT 4.96 10^6/uL (4.30-6.10); RED CELL DISTRIBUTION WIDTH 12.5 % (11.5-14.5)
[2018-03-17 17:59] LABS: ALBUMIN 4.1 GM/DL (3.2-5.2); ALBUMIN/GLOBULIN RATIO 1.08 (1.00-1.93); ALT/SGPT 115 U/L (12-78); ANION GAP 8 MEQ/L (8-16); AST/SGOT 52 U/L (7-37); BILIRUBIN,DIRECT < 0.1 MG/DL (0.0-0.2); BILIRUBIN,TOTAL 0.5 MG/DL (0.2-1.0); BLOOD UREA NITROGEN 11 MG/DL (7-18); CALCIUM LEVEL 8.8 MG/DL (8.5-10.1); CARBON DIOXIDE LEVEL 28 MEQ/L (21-32); CHLORIDE LEVEL 105 MEQ/L (98-107); CREATININE FOR GFR 1.04 MG/DL (0.70-1.30); GLOMERULAR FILTRATION RATE > 60.0 (>60); GLUCOSE, FASTING 86 MG/DL (70-100); LIPASE 149 U/L (73-393); POTASSIUM SERUM 3.8 MEQ/L (3.5-5.1); SODIUM LEVEL 141 MEQ/L (136-145); TOTAL PROTEIN 7.9 GM/DL (6.4-8.2); TROPONIN I < 0.02 NG/ML (< 0.10)
[2018-03-17 18:05] LABS: ALKALINE PHOSPHATASE 77 U/L (45-117); CK-MB VALUE MASS < 1.0 NG/ML (<3.6); CPK CREATINE PHOSPHOKINASE 192 U/L (39-308); FREE T4 0.91 NG/DL (0.76-1.46); MB/CK RELATIVE INDEX 0.52 (< OR =4); THYROID STIMULATING HORMONE 0.957 uIU/ML (0.358-3.740)
[2018-03-17] MEDS ORDERED: ISOVUE-370 76% 100ML VIAL (Q9967) As Ordered (18:30)
[2018-03-17] MEDS: NS 1,000 ML IV ×2 (18:30→20:05)
[2018-03-17 20:44] LABS: AMPHETAMINES LEVEL URINE NEGATIVE (NEGATIVE); BARBITURATES URINE NEGATIVE (NEGATIVE); BENZODIAZEPINES URINE NEGATIVE (NEGATIVE); CANNABINOIDS URINE NEGATIVE (NEGATIVE); COCAINE METABOLITE URINE NEGATIVE (NEGATIVE); METHADONE URINE NEGATIVE (NEGATIVE); OPIATES URINE NEGATIVE (NEGATIVE); PHENCYCLIDINE URINE NEGATIVE (NEGATIVE)
== END 2018-03-17 21:31 | disposition home or self-care (01) ==
LOC: M ED 17:00
DX: R07.89 Other chest pain (principal); S06.0X0A Concussion without loss of consciousness, initial encounter; W19.XXXA Unspecified fall, initial encounter; Y92.9 Unspecified place or not applicable; Y93.9 Activity, unspecified; Y99.9 Unspecified external cause status; E11.9 Type 2 diabetes mellitus without complications; F32.9 Major depressive disorder, single episode, unspecified
CPT/HCPCS: Q9967

== ENCOUNTER 2018-06-17 18:02 | Emergency (ER) | payer OTHER ==
[2018-06-17] MEDS: AMOXICILLIN 500 MG CAP PO (18:21)
== END 2018-06-17 18:32 | disposition home or self-care (01) ==
LOC: M ED 18:02
DX: J02.8 Acute pharyngitis due to other specified organisms (principal); R05 Cough; R09.81 Nasal congestion; E11.9 Type 2 diabetes mellitus without complications
CPT/HCPCS: 87880

== ENCOUNTER 2018-09-09 01:42 | Emergency (ER) | payer OTHER ==
[~2018-09-09] VITALS: Ht 177.8 cm; Wt 104.5 kg
[~2018-09-09 01:42] MED LIST changes: +AMOX500C PO; +BANO25CA; +DIPH25CA; +IBUP-1022 PO; +NORCOTAB PO; +OSEL75CA PO; +PRED20TA PO; +PROAAER10 INH; +SERT-155 PO; +TESS100C PO
[2018-09-09 03:23] VITALS: BP 117/74
--- NOTE | 2018-09-09 10:30 | REP ---
Right hand two views: There is no fracture or dislocation. Mineralization and joint spaces are normal. There is soft tissue edema over the dorsum of the MCP articulations. There are no calcifications or foreign bodies. Impression: Soft tissue edema, no fracture or dislocation. Electronically Signed by Drew Konx MD 09/09/2018 07:57 A
== END 2018-09-09 03:25 | disposition home or self-care (01) ==
LOC: M ED 01:42
DX: F10.129 Alcohol abuse with intoxication, unspecified (principal); S60.221A Contusion of right hand, initial encounter; X58.XXXA Exposure to other specified factors, initial encounter; Y92.410 Unspecified street and highway as the place of occurrence of the external cause; E11.9 Type 2 diabetes mellitus without complications; F43.20 Adjustment disorder, unspecified

== ENCOUNTER 2018-09-19 01:24 | Emergency (ER) | payer OTHER ==
[~2018-09-19] VITALS: Ht 175.3 cm; Wt 102.3 kg
[2018-09-19] MEDS ORDERED: KETOROLAC 30 MG/ML VIAL (J1885) IV ONE (03:45)
[2018-09-19] MEDS ORDERED: NS 1,000 ML IV ONE (03:45)
[2018-09-19] MEDS ORDERED: diphenhydrAMINE INJ 50MG/ML VIAL (J1200) IV ONE (03:45)
[2018-09-19 05:00] VITALS: BP 108/67
--- NOTE | 2018-09-19 05:22 | REPVR ---
EXAM: CT Head Without Contrast EXAM DATE/TIME: 09/19/2018 3:44 AM CLINICAL HISTORY: 23 years old, male; Pain; Headache; Headache not specified; Additional info: New onset headache TECHNIQUE: Axial computed tomography images of the head/brain without contrast. All CT scans at this facility use at least one of these dose optimization techniques: automated exposure control; mA and/or kV adjustment per patient size (includes targeted exams where dose is matched to clinical indication); or iterative reconstruction. COMPARISON: CT Head without contrast 03/17/2018 6:32 PM FINDINGS: Brain: Normal. No hemorrhage. No significant white matter disease. No edema. Ventricles: Normal. No ventriculomegaly. Bones/joints: Unremarkable. No acute fracture. Sinuses: Visualized sinuses are unremarkable. No acute sinusitis. Mastoid air cells: Visualized mastoid air cells are unremarkable. No mastoid effusion. Soft tissues: Unremarkable. IMPRESSION: Negative noncontrast head CT without change from 03/17/2018. Electronically signed by: Armen Ann On 09/19/2018 05:21:51 AM
== END 2018-09-19 06:01 | disposition home or self-care (01) ==
LOC: M ED 01:24
DX: R51 Headache (principal)
CPT/HCPCS: 70450; 96374; 96375; 99284; J1200; J1885

== ENCOUNTER 2018-11-02 02:31 | Emergency (ER) | payer OTHER ==
[~2018-11-02] VITALS: Ht 177.8 cm; Wt 98.7 kg
[~2018-11-02 02:31] MED LIST changes: +HYDR-3715 PO; -NORCOTAB PO
[2018-11-02] MEDS ORDERED: RACEPINEPHrine 2.25 % UD INHA As Ordered ONE (02:41)
[2018-11-02] MEDS ORDERED: RACEPINEPHrine 2.25 % UD INHA NEB ONE (02:45)
[2018-11-02] MEDS ORDERED: dexameTHASONE 20 MG/5 ML VIAL (J1100) IV ONE (02:45)
[2018-11-02 03:01] LABS: ABG BASE EXCESS -0.6 (-2.0-2.0); ABG HCO3 19.2 MEQ/L (22.0-26.0); ABG O2 SATURATION 98.3 % (95.0-99.0); ABG PARTIAL PRESSURE CO2 22.3 mmHg (35.0-45.0); ABG PARTIAL PRESSURE O2 95.1 mmHg (75.0-100.0); ABG TOTAL CO2 19.9 MEQ/L (22.0-29.0); ABG pH (ARTERIAL) 7.553 UNITS (7.350-7.450)
[2018-11-02] MEDS ORDERED: PRED20TA PO (04:08)
[2018-11-02 04:15] VITALS: BP 118/66
--- NOTE | 2018-11-02 06:42 | ECGEPIP ---
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
--- NOTE | 2018-11-02 07:42 | REP ---
Soft tissue neck three views: The epiglottis is not hypertrophied. The prevertebral soft tissues are not thickened. There is mild effacement of the subglottic trachea compatible with tracheobronchitis. Electronically Signed by Drew Knox MD 11/02/2018 07:34 A
--- NOTE | 2018-11-02 07:43 | REP ---
PA and lateral chest: Comparison is 08/18/2017. There is mild atelectasis inferiorly in the left lung. Lung mendoza otherwise clear. Cardiac size is normal. The cuate, mediastinum, skeletal structures are unremarkable. Electronically Signed by Drew Knox MD 11/02/2018 07:35 A
== END 2018-11-02 04:28 | disposition home or self-care (01) ==
LOC: M ED 02:31
DX: J04.2 Acute laryngotracheitis (principal); R94.31 Abnormal electrocardiogram [ECG] [EKG]; J45.909 Unspecified asthma, uncomplicated; Z87.891 Personal history of nicotine dependence
CPT/HCPCS: 36600; 70360; 71046; 82803; 93005; 94640; 96374; 99284; J1100

== ENCOUNTER 2018-11-02 16:39 | Emergency (ER) | payer OTHER ==
[~2018-11-02] VITALS: Ht 177.8 cm; Wt 100.0 kg
[2018-11-02] MEDS ORDERED: NS 1,000 ML IV ONE ×2 (17:15→18:15)
[2018-11-02] MEDS ORDERED: IPRATROPIUM 0.5MG/ALBUTEROL 2.5MG INH SOL UD 3ML (DUONEB)(J7620) NEB ONE (17:15)
[2018-11-02] MEDS ORDERED: ALBUTEROL SULFATE 2.5 MG/0.5 ML INH NEB SOLN INH ONE (17:15)
--- NOTE | 2018-11-02 17:27 | REP ---
Soft tissue neck three views: The epiglottis is not hypertrophied. The prevertebral soft tissues are not edematous. There is mild steepling of the subglottic trachea compatible with tracheobronchitis. The visualized vertebral body heights, interspacing alignment are normal. Electronically Signed by Drew Knox MD 11/02/2018 05:18 P
--- NOTE | 2018-11-02 17:28 | REP ---
Portable chest, 06:15 p.m., single PA view: Comparison is from 03:28 a.m. earlier today. There is left basilar atelectasis, not significantly changed from the comparison study. Right lung is clear. Cardiac size is normal. The cuate, mediastinum, and skeletal structures are unremarkable. Impression: Left basilar atelectasis, unchanged. Electronically Signed by Drew Knox MD 11/02/2018 05:20 P
[2018-11-02 17:56] LABS: BASO % 0.1 % (0.0-1.0); HEMATOCRIT 45.3 % (42.0-52.0); HEMOGLOBIN 15.9 g/dl (13.5-17.5); LYMPH # 1.4 10^3/uL (1.5-6.5); LYMPH % 7.8 % (24.0-44.0); MEAN CORPUSCULAR HEMOGLOBIN 29.3 pg (27.0-33.0); MEAN CORPUSCULAR HGB CONC 35.1 g/dl (32.0-36.5); MEAN CORPUSCULAR VOLUME 83.6 fl (80.0-96.0); MONO # 0.5 10^3/uL (0.0-0.8); NEUTROPHILS % 88.7 % (36.0-66.0); PLATELET COUNT, AUTOMATED 268 10^3/uL (150-450); RED BLOOD COUNT 5.42 10^6/uL (4.30-6.10); WHITE BLOOD COUNT 18.1 10^3/uL (4.0-10.0)
[2018-11-02 18:15] LABS: INFLUENZA A AMPLIFICATION NEGATIVE (NEGATIVE); INFLUENZA B AMPLIFICATION NEGATIVE (NEGATIVE)
[2018-11-02 18:17] LABS: ALBUMIN 4.6 GM/DL (3.2-5.2); ALT/SGPT 139 U/L (12-78); BILIRUBIN,DIRECT 0.1 MG/DL (0.0-0.2); BILIRUBIN,TOTAL 0.5 MG/DL (0.2-1.0); BLOOD UREA NITROGEN 11 MG/DL (7-18); CARBON DIOXIDE LEVEL 23 MEQ/L (21-32); CHLORIDE LEVEL 105 MEQ/L (98-107); CK-MB VALUE MASS < 1.0 NG/ML (<3.6); CPK CREATINE PHOSPHOKINASE 115 U/L (39-308); CREATININE FOR GFR 1.15 MG/DL (0.70-1.30); GLOMERULAR FILTRATION RATE > 60.0 (>60); GLUCOSE, FASTING 169 MG/DL (70-100); MB/CK RELATIVE INDEX 0.87 (< OR =4); NT-PRO BNP 14 PG/ML (<125); POTASSIUM SERUM 4.1 MEQ/L (3.5-5.1); SODIUM LEVEL 140 MEQ/L (136-145); THYROID STIMULATING HORMONE 0.688 uIU/ML (0.358-3.740); TOTAL PROTEIN 8.1 GM/DL (6.4-8.2); TROPONIN I < 0.02 NG/ML (< 0.10)
[2018-11-02] MEDS ORDERED: ISOVUE-370 76% 100ML VIAL (Q9967) As Ordered ONE (18:42)
--- NOTE | 2018-11-02 19:40 | REPVR ---
EXAM: CT Neck With Contrast EXAM DATE/TIME: 11/02/2018 6:40 PM CLINICAL HISTORY: 23 years old, male; Signs and symptoms; Epiglottitis; Acute; Additional info: RO epiglottitis TECHNIQUE: Imaging protocol: Axial computed tomography images of the neck with intravenous contrast. Coronal and sagittal reformatted images were created and reviewed. Radiation optimization: All CT scans at this facility use at least one of these dose optimization techniques: automated exposure control; mA and/or kV adjustment per patient size (includes targeted exams where dose is matched to clinical indication); or iterative reconstruction. Contrast material: ISOVUE 370; Contrast volume: 75 ml; Contrast route: IV; COMPARISON: CR Soft Tissue Neck 11/02/2018 5:14 PM FINDINGS: Nasopharynx: The nasopharynx demonstrates mild enlargement of the adenoidal tonsils, likely chronic. Oropharynx: The palatine and lingual tonsils appear mildly enlarged, this could be a chronic finding. No evidence of tonsillar abscess. Hypopharynx: Normal. Larynx: Normal. Normal epiglottis. Retropharyngeal space: Normal. Submandibular/Parotid glands: Normal. Glands are normal in size. Thyroid: Normal. No enlarged or calcified nodules. Lymph nodes: No pathologically enlarged lymph nodes. Trachea: No evidence of subglottic tracheal edema. Lungs: Normal as visualized. Vasculature: No acute findings. Bones/joints: No acute fracture seen. 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 Soft tissues: Normal. No significant soft tissue swelling. IMPRESSION: No evidence of epiglottitis. Electronically signed by: Lor Tinajero On 11/02/2018 19:39:48 PM
[2018-11-02 20:45] VITALS: BP 131/68
--- NOTE | 2018-11-04 20:29 | ECGEPIP ---
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
== END 2018-11-02 21:14 | disposition home or self-care (01) ==
LOC: EDBD 16:39 → M ED 16:39
DX: J04.2 Acute laryngotracheitis (principal); J98.11 Atelectasis; E11.9 Type 2 diabetes mellitus without complications
CPT/HCPCS: 70360; 70491; 71045; 80048; 80076; 82550; 82553; 83605; 83880; 84436; 84443; 85025; 87040; 87502; 93005; 93041; 94640; 94760; 96365; 96366; 99285; Q9967

== ENCOUNTER 2018-11-04 15:01 | Emergency (ER) | payer OTHER ==
[2018-11-04 15:07] VITALS: BP 131/90
== END 2018-11-04 16:48 | disposition left against medical advice (07) ==
LOC: M ED 15:01 → EDBD 15:01 → M ED 16:48
DX: R06.02 Shortness of breath (principal); Z53.21 Procedure and treatment not carried out due to patient leaving prior to being seen by health care provider

== ENCOUNTER 2018-12-09 01:46 | Emergency (ER) | payer OTHER ==
[~2018-12-09] VITALS: Ht 175.3 cm; Wt 102.3 kg
[2018-12-09] MEDS ORDERED: METOCLOPRAMIDE INJ 10MG/2ML VIAL (J2765) IV ONE (03:45)
[2018-12-09] MEDS ORDERED: NS 1,000 ML IV ONE (03:45)
[2018-12-09] MEDS ORDERED: KETOROLAC 30 MG/ML VIAL (J1885) IV ONE (03:45)
[2018-12-09] MEDS ORDERED: diphenhydrAMINE INJ 50MG/ML VIAL (J1200) IV ONE (03:45)
[2018-12-09 06:32] VITALS: BP 120/88
[2018-12-09] MEDS ORDERED: LIDO1SOL8 PO (19:23)
[2018-12-09] MEDS ORDERED: PENI500T PO (19:23)
[2018-12-09] MEDS ORDERED: KETO10TAB PO (19:23)
== END 2018-12-09 06:36 | disposition home or self-care (01) ==
LOC: M ED 01:46
DX: G43.909 Migraine, unspecified, not intractable, without status migrainosus (principal)
CPT/HCPCS: 96361; 96374; 96375; 99284; J1200; J1885; J2765

== ENCOUNTER 2018-12-09 17:40 | Emergency (ER) | payer OTHER ==
[~2018-12-09] VITALS: Ht 172.7 cm; Wt 102.3 kg
[2018-12-09] MEDS ORDERED: PENI500T PO (19:23)
[2018-12-09] MEDS ORDERED: KETO10TAB PO (19:23)
[2018-12-09] MEDS ORDERED: LIDO1SOL8 PO (19:23)
[2018-12-09] MEDS ORDERED: KETOROLAC TROMETHAMINE 10 MG TAB PO ONE (19:30)
[2018-12-09] MEDS ORDERED: PENICILLIN V POTASSIUM 500 MG TAB PO ONE (19:30)
[2018-12-09] MEDS ORDERED: LIDOCAINE VISCOUS 2% SOLN 15ML UDC SS ONE (19:30)
[2018-12-09 19:46] VITALS: BP 132/83
== END 2018-12-09 19:52 | disposition home or self-care (01) ==
LOC: M ED 17:40
DX: R51 Headache (principal); J02.0 Streptococcal pharyngitis; E11.9 Type 2 diabetes mellitus without complications; K21.9 Gastro-esophageal reflux disease without esophagitis

== ENCOUNTER 2019-01-04 20:09 | Emergency (ER) | payer OTHER ==
[~2019-01-04] VITALS: Ht 172.7 cm; Wt 100.0 kg
[~2019-01-04 20:09] MED LIST changes: +KETO10TAB PO; +LIDO1SOL8 PO; +PENI500T PO
[2019-01-04 20:19] VITALS: BP 135/91
[2019-01-04] MEDS ORDERED: KETOROLAC 60 MG/2 ML VIAL (J1885) IM ONE (23:00)
--- NOTE | 2019-01-04 23:43 | REPVR ---
EXAM: US Duplex Right Lower Extremity Veins, Limited EXAM DATE/TIME: 01/04/2019 11:02 PM CLINICAL HISTORY: 23 years old, male; Pain; Leg, lower; Right; Additional info: Right lower leg numbness and pain with ambulation TECHNIQUE: Imaging protocol: Real-time Duplex ultrasound of the Right Lower Extremity with 2-D larsen scale, color Doppler flow and spectral waveform analysis. Limited exam was focused on the right lower extremity veins. COMPARISON: US Duplex, Ext,LOWER veins,unilat 10/08/2017 1:27 AM FINDINGS: Right deep veins: Unremarkable. The common femoral, femoral, proximal profunda femoral and popliteal veins are patent without thrombus. Normal Doppler waveforms. Normal compressibility and/or augmentation response. Right superficial veins: Unremarkable. Saphenofemoral junction is patent without thrombus. Soft tissues: Unremarkable. IMPRESSION: No sonographic evidence of deep vein thrombosis. Electronically signed by: Ousmane Ramirez On 01/04/2019 23:42:36 PM
[2019-01-05] MEDS ORDERED: IBUP80TA PO (00:03)
== END 2019-01-05 00:07 | disposition home or self-care (01) ==
LOC: M ED 20:09
DX: M62.831 Muscle spasm of calf (principal); R20.2 Paresthesia of skin; R26.2 Difficulty in walking, not elsewhere classified; E11.9 Type 2 diabetes mellitus without complications; Z82.49 Family history of ischemic heart disease and other diseases of the circulatory system

== ENCOUNTER 2019-02-15 00:05 | Emergency (ER) | payer OTHER ==
[~2019-02-15] VITALS: Ht 175.3 cm; Wt 101.0 kg
[2019-02-15 00:05] VITALS: BP 143/88
[~2019-02-15 00:05] MED LIST changes: -DIPH25CA; +DIPH25CA32; +IBUP80TA PO
[2019-02-15] MEDS ORDERED: hydrOXYzine 25 MG TAB PO STA (02:14)
[2019-02-15] MEDS ORDERED: HYDROCORTISONE 2.5% 20GM OINTMENT TOP STA (02:14)
[2019-02-15] MEDS ORDERED: HYDR25OIN TOP (02:17)
[2019-02-15] MEDS ORDERED: HYDR-643 PO (02:17)
== END 2019-02-15 02:54 | disposition home or self-care (01) ==
LOC: M ED 00:05
DX: L42 Pityriasis rosea (principal); E11.9 Type 2 diabetes mellitus without complications; K21.9 Gastro-esophageal reflux disease without esophagitis; F17.200 Nicotine dependence, unspecified, uncomplicated

== ENCOUNTER 2019-02-24 20:18 | Emergency (ER) | payer OTHER ==
[~2019-02-24] VITALS: Ht 172.7 cm; Wt 101.4 kg
[2019-02-24 20:18] VITALS: BP 134/72
[~2019-02-24 20:18] MED LIST changes: +HYDR-643 PO; +HYDR25OIN TOP
[2019-02-24] MEDS ORDERED: NAPR-885 PO (21:11)
[2019-02-24] MEDS ORDERED: NAPROXEN 250 MG TAB PO ONE (21:15)
--- NOTE | 2019-02-25 08:31 | REP ---
Left knee series: Five views. History: Pain in the medial left knee after twisting injury. Findings: Five views of the left knee demonstrate normal bones, joints, and soft tissues. No fracture or subluxation is seen. Impression: Negative radiographs of the left knee. Electronically Signed by Charly Barahona MD 02/25/2019 08:22 A
== END 2019-02-24 21:20 | disposition home or self-care (01) ==
LOC: M ED 20:18
DX: S83.412A Sprain of medial collateral ligament of left knee, initial encounter (principal); X50.1XXA Overexertion from prolonged static or awkward postures, initial encounter; Y92.410 Unspecified street and highway as the place of occurrence of the external cause; Y93.9 Activity, unspecified; Y99.9 Unspecified external cause status; E11.9 Type 2 diabetes mellitus without complications; Z72.0 Tobacco use

== ENCOUNTER 2019-06-16 22:34 | Emergency (ER) | payer OTHER ==
[~2019-06-16] VITALS: Ht 170.2 cm; Wt 107.7 kg
[~2019-06-16 22:34] MED LIST changes: +NAPR-885 PO; -OMEP40CA2 PO; +OMEP40CA97 PO; -SERT-155 PO; +SERT50TA29 PO
[2019-06-16] MEDS ORDERED: methylPREDNISolone INJ 125 MG/2 ML VIAL (J2930) IV ONE (22:45)
[2019-06-16 23:13] LABS: VENOUS BASE EXCESS -0.6 (-2.0-2.0); VENOUS HCO3 24.2 MEQ/L (23.0-27.0); VENOUS O2 SATURATION 95.7 % (60.0-80.0); VENOUS PARTIAL PRESSURE CO2 40.6 mmHg (38.0-50.0); VENOUS PARTIAL PRESSURE O2 80.1 mmHg (30.0-50.0); VENOUS PH 7.393 UNITS (7.330-7.430); VENOUS STANDARD HCO3 23.9 MEQ/L; VENOUS TOTAL CO2 25.4 MEQ/L (24.0-28.0)
[2019-06-16] MEDS: IPRATROPIUM 0.5MG/ALBUTEROL 2.5MG INH SOL UD 3ML (DUONEB)(J7620) NEB PRN ×2 (23:13→23:41)
[2019-06-16 23:14] LABS: BASO % 0.5 % (0.0-1.0); EOS # 0.2 10^3/uL (0.0-0.5); HEMATOCRIT 44.1 % (42.0-52.0); HEMOGLOBIN 14.9 g/dl (13.5-17.5); LYMPH # 3.1 10^3/uL (1.5-5.0); LYMPH % 39.5 % (24.0-44.0); MEAN CORPUSCULAR HEMOGLOBIN 28.8 pg (27.0-33.0); MEAN CORPUSCULAR HGB CONC 33.8 g/dl (32.0-36.5); MEAN CORPUSCULAR VOLUME 85.3 fl (80.0-96.0); MONO # 0.5 10^3/uL (0.0-0.8); MONO % 6.2 % (0.0-5.0); NEUTROPHILS # 4.1 10^3/uL (1.5-8.5); NEUTROPHILS % 51.5 % (36.0-66.0); PLATELET COUNT, AUTOMATED 194 10^3/uL (150-450); RED BLOOD COUNT 5.17 10^6/uL (4.30-6.10); WHITE BLOOD COUNT 7.9 10^3/uL (4.0-10.0)
[2019-06-16 23:37] LABS: BLOOD UREA NITROGEN 15 MG/DL (7-18); CALCIUM LEVEL 9.1 MG/DL (8.5-10.1); CARBON DIOXIDE LEVEL 27 MEQ/L (21-32); CHLORIDE LEVEL 107 MEQ/L (98-107); CREATININE FOR GFR 1.02 MG/DL (0.70-1.30); GLOMERULAR FILTRATION RATE > 60.0 (>60); GLUCOSE, FASTING 183 MG/DL (70-100); NT-PRO BNP 6 PG/ML (<125); POTASSIUM SERUM 3.9 MEQ/L (3.5-5.1); SODIUM LEVEL 143 MEQ/L (136-145)
[2019-06-16] MEDS ORDERED: PROV108A INH (23:52)
[2019-06-16 23:57] VITALS: BP 112/62
--- NOTE | 2019-06-17 06:14 | REP ---
Clinical: Cough and dyspnea . Comparison: 11/02/2018 . Findings: The mediastinum and cardiac silhouette are stable and within normal limits for portable technique. The lung mendoza are clear without acute consolidation, effusion, or pneumothorax. Skeletal structures are intact. Impression: No acute cardiopulmonary process appreciated. Electronically Signed by Jordi Noriega MD 06/17/2019 06:05 A
== END 2019-06-17 00:21 | disposition home or self-care (01) ==
LOC: M ED 22:34
DX: J45.909 Unspecified asthma, uncomplicated (principal); E11.9 Type 2 diabetes mellitus without complications
CPT/HCPCS: 36415; 71045; 80048; 82803; 83880; 85025; 94640; 96374; 99284; J2930

== ENCOUNTER 2019-08-22 06:23 | Day surgery (SDC) | payer OTHER ==
[2019-08-22] VITALS (9 sets, daily range): BP systolic 122–136; BP diastolic 68–83; O2SAT 94
[~2019-08-22] VITALS: Ht 175.3 cm; Wt 106.8 kg
[~2019-08-22 06:23] MED LIST changes: -LIDO1SOL8 PO; +LIDO2SOL17 PO; +PROV108A INH
[2019-08-22] MEDS ORDERED: OMEP40CA97 PO (06:39)
[2019-08-22 07:06] LABS: BASO % 0.3 % (0.0-1.0); EOS # 0.1 10^3/uL (0.0-0.5); EOS % 1.3 % (0.0-3.0); HEMOGLOBIN 15.8 g/dl (13.5-17.5); LYMPH # 2.2 10^3/uL (1.5-5.0); MEAN CORPUSCULAR HEMOGLOBIN 27.9 pg (27.0-33.0); MEAN CORPUSCULAR HGB CONC 32.9 g/dl (32.0-36.5); MEAN CORPUSCULAR VOLUME 84.8 fl (80.0-96.0); MONO # 0.6 10^3/uL (0.0-0.8); NEUTROPHILS # 7.5 10^3/uL (1.5-8.5); NEUTROPHILS % 71.2 % (36.0-66.0); PLATELET COUNT, AUTOMATED 168 10^3/uL (150-450); RED BLOOD COUNT 5.66 10^6/uL (4.30-6.10); WHITE BLOOD COUNT 10.6 10^3/uL (4.0-10.0)
[2019-08-22] MEDS ORDERED: METOCLOPRAMIDE INJ 10MG/2ML VIAL (J2765) IV ONE (07:15)
[2019-08-22] MEDS ORDERED: NS 1,000 ML IV ONE ×2 (07:15)
[2019-08-22 07:33] LABS: ALBUMIN 4.1 GM/DL (3.2-5.2); BILIRUBIN,DIRECT 0.2 MG/DL (0.0-0.2); BILIRUBIN,TOTAL 0.4 MG/DL (0.2-1.0); TOTAL PROTEIN 7.9 GM/DL (6.4-8.2)
[2019-08-22] MEDS ORDERED: ISOVUE-370 76% 100ML VIAL (Q9967) As Ordered ONE (07:36)
[2019-08-22 07:49] LABS: HEMOGLOBIN A1c 8.9 %
--- NOTE | 2019-08-22 08:19 | REPVR ---
PROCEDURE INFORMATION: Exam: CT Abdomen And Pelvis With Contrast Exam date and time: 08/22/2019 7:15 AM Age: 24 years old Clinical indication: Abdominal pain; Additional info: Abd pain TECHNIQUE: Imaging protocol: Computed tomography of the abdomen and pelvis with intravenous contrast. Radiation optimization: All CT scans at this facility use at least one of these dose optimization techniques: automated exposure control; mA and/or kV adjustment per patient size (includes targeted exams where dose is matched to clinical indication); or iterative reconstruction. Contrast material: ISOVUE 370; Contrast volume: 100 ml; Contrast route: IV; COMPARISON: CT ABD PELVIS W/O CONTRAST 04/27/2017 12:03 PM FINDINGS: Lungs: Linear atelectasis or scarring in the right middle lobe. Liver: Hepatomegaly and steatosis. Gallbladder and bile ducts: Normal. No calcified stones. No ductal dilation. Pancreas: Normal. No ductal dilation. Spleen: Normal. No splenomegaly. Adrenals: Normal. No mass. Kidneys and ureters: Normal. No hydronephrosis. Stomach and bowel: Unremarkable. No obstruction. No mucosal thickening. Appendix: Fluid-filled borderline distended appendix demonstrates wall thickening with stranding of the adjacent fat. There is a small obstructing appendicolith at the appendiceal base. Intraperitoneal space: Trace fluid in the pelvis. Vasculature: Unremarkable. No abdominal aortic aneurysm. Lymph nodes: Unremarkable. No enlarged lymph nodes. Bladder: Unremarkable as visualized. Reproductive: Unremarkable as visualized. Bones/joints: Unremarkable. No acute fracture. Soft tissues: Unremarkable. IMPRESSION: 1. Acute appendicitis. 2. Hepatomegaly and steatosis. Electronically signed by: Sixto Ellis On 08/22/2019 08:18:36 AM
[2019-08-22 08:56] LABS: INFLUENZA A AMPLIFICATION NEGATIVE (NEGATIVE); INFLUENZA B AMPLIFICATION NEGATIVE (NEGATIVE)
[2019-08-22] MEDS ORDERED: PIPERACILLIN/TAZOBACTAM SOD 3.375 GM in D5W MINI-BAG PLUS 50 ML IV ONE (09:15)
[2019-08-22] MEDS ORDERED: VENTAER INH (09:29)
[2019-08-22] MEDS ORDERED: ONDANSETRON 4MG/2ML VIAL (J2405) IV PRN ×2 (10:15→18:30)
[2019-08-22] MEDS ORDERED: IPRATROPIUM 0.5MG/ALBUTEROL 2.5MG INH SOL UD 3ML (DUONEB)(J7620) NEB PRN (10:15)
[2019-08-22] MEDS ORDERED: HYDROmorphone 2 MG TAB PO PRN (10:15)
[2019-08-22] MEDS ORDERED: KETOROLAC 30 MG/ML VIAL (J1885) IV PRN (10:15)
[2019-08-22] MEDS: LR 1,000 ML IV SCH ×2 (11:14→18:46)
[2019-08-22] MEDS: PANTOPRAZOLE 40MG INJ (PROTONIX) (C9113) IV SCH ×2 (11:14→20:41)
[2019-08-22] MEDS: IPRATROPIUM 0.5MG/ALBUTEROL 2.5MG INH SOL UD 3ML (DUONEB)(J7620) NEB SCH ×2 (13:35→20:00)
[2019-08-22] MEDS ORDERED: BUPIVACAINE/EPIN 0.25% 30 ML VIAL As Ordered ONE (15:21)
[2019-08-22] MEDS ORDERED: ZOSYN 3.375 GM VIAL (J2543) As Ordered ONE (16:34)
[2019-08-22] MEDS ORDERED: ONDANSETRON 4MG/2ML VIAL (J2405) As Ordered ONE (16:50)
[2019-08-22] MEDS ORDERED: propofoL 200 MG/20 ML VIAL As Ordered ONE (16:50)
[2019-08-22] MEDS ORDERED: LIDOCAINE 2% INJ 100 MG/5 ML SDV (FOR ANES.) As Ordered ONE (16:50)
[2019-08-22] MEDS ORDERED: dexameTHASONE 4 MG/ML 1ML VIAL (J1100) As Ordered ONE (16:50)
[2019-08-22] MEDS ORDERED: fentaNYL 250 MCG/5 ML INJECTION (J3010) As Ordered ONE (16:50)
[2019-08-22] MEDS ORDERED: MIDAZOLAM INJ 2 MG/2 ML VIAL (J2250) As Ordered ONE (16:50)
[2019-08-22] MEDS ORDERED: ROCURONIUM BROMIDE 50 MG/5 ML VIAL As Ordered ONE (16:50)
[2019-08-22] MEDS: PIPERACILLIN/TAZOBACTAM SOD 3.375 GM in D5W MINI-BAG PLUS 50 ML IV SCH ×2 (17:00→23:03)
[2019-08-22] MEDS ORDERED: NEOSTIGMINE 10 MG/10 ML VIAL (J2710) As Ordered ONE (17:25)
[2019-08-22] MEDS ORDERED: GLYCOPYRROLATE INJ 0.2 MG/ML 2 ML VIAL As Ordered ONE (17:25)
[2019-08-22] MEDS ORDERED: NORCO, ANEXSIA 5/325MG TABLET (HYDROcodone/ACETAMINOPHEN) PO PRN ×2 (18:00)
[2019-08-22] MEDS ORDERED: fentaNYL 100 MCG/2 ML INJECTION (J3010) IV PRN (18:30)
[2019-08-22] MEDS ORDERED: PERCOCET 5MG/325MG TAB PO PRN (18:30)
[2019-08-22] MEDS ORDERED: LR 1,000 ML IV SCH (18:30)
[2019-08-22] MEDS ORDERED: METOCLOPRAMIDE INJ 10MG/2ML VIAL (J2765) IV PRN (18:30)
[2019-08-22] MEDS ORDERED: PERCOCET 5MG/325MG TAB As Ordered ONE (18:30)
[2019-08-22] MEDS: KETOROLAC 30 MG/ML VIAL (J1885) IV SCH (19:30)
[2019-08-23] MEDS: IPRATROPIUM 0.5MG/ALBUTEROL 2.5MG INH SOL UD 3ML (DUONEB)(J7620) NEB SCH ×2 (01:20→07:42)
[2019-08-23 02:00] VITALS: BP 137/81
[2019-08-23] MEDS: KETOROLAC 30 MG/ML VIAL (J1885) IV SCH ×2 (02:12→08:15)
[2019-08-23] MEDS: PIPERACILLIN/TAZOBACTAM SOD 3.375 GM in D5W MINI-BAG PLUS 50 ML IV SCH (05:09)
[2019-08-23] MEDS: LR 1,000 ML IV SCH (05:09)
[2019-08-23 06:00] VITALS: BP 134/70
[2019-08-23] MEDS: PANTOPRAZOLE 40MG INJ (PROTONIX) (C9113) IV SCH (08:14)
[2019-08-23 10:00] VITALS: BP 113/57
[2019-08-23] MEDS ORDERED: HYDR-3715 PO (10:05)
[2019-08-23 11:30] VITALS: O2SAT 95
== END 2019-08-23 12:10 | disposition home or self-care (01) ==
LOC: M ED 06:23 → M SDC 06:24 → ENRESERV 10:17 → M MSPAV 10:55 → M SDC 08-23 12:10
PROVIDERS: ATTEND Surgery
DX: K35.890 Other acute appendicitis without perforation or gangrene (principal); E11.9 Type 2 diabetes mellitus without complications; K21.9 Gastro-esophageal reflux disease without esophagitis; J45.909 Unspecified asthma, uncomplicated; Z79.51 Long term (current) use of inhaled steroids; Z79.899 Other long term (current) drug therapy; E66.9 Obesity, unspecified
CPT/HCPCS: 44970; 80047; 80076; 81001; 83036; 83690; 85025; 87502; 88304; 94640; 96361; 96365; 96366; 96375; 96376; 99284; C9113; J1100; J1885; J2250; J2405; J2543; J2710; J2765; J3010; Q9967

== ENCOUNTER 2019-10-09 09:00 | Day surgery (SDC) | payer OTHER ==
[~2019-10-09] VITALS: Ht 172.7 cm; Wt 108.0 kg
[~2019-10-09 09:00] MED LIST changes: +LIDOCAINE 2% INJ 100 MG/5 ML SDV (FOR ANES.) As Ordered ONE; +NS 1,000 ML IV ONE; +VENTAER INH; +propofoL 200 MG/20 ML VIAL As Ordered ONE
[2019-10-09] MEDS ORDERED: fentaNYL 100 MCG/2 ML INJECTION (J3010) As Ordered ONE (10:14)
[2019-10-09] MEDS ORDERED: propofoL 200 MG/20 ML VIAL As Ordered ONE (10:23)
--- NOTE | 2019-10-09 10:39 | ROOR ---
Patient Name: Mickey Montilla Procedure Date: 10/09/2019 10:14 AM Date of : 1995 Age: 24 Room: [facility] Gender: Male Note Status: Finalized Procedure: Upper GI endoscopy Indications: Heartburn, Exclusion of celiac disease Providers: Ray CASTILLO MD Referring MD: Dior Diamond Requesting Provider: Medicines: Monitored Anesthesia Care Complications: No immediate complications. Procedure: Pre-Anesthesia Assessment: - The heart rate, respiratory rate, oxygen saturations, blood pressure, adequacy of pulmonary ventilation, and response to care were monitored throughout the procedure. The Endoscope was introduced through the mouth, and advanced to the second part of duodenum. The upper GI endoscopy was accomplished without difficulty. The patient tolerated the procedure well. Findings: A single 4 mm mucosal nodule/ectopic mucosa was found in the upper third of the esophagus. Biopsies were taken with a cold forceps for histology. The exam of the esophagus was otherwise normal. Small Hiatal Hernia. The entire examined stomach was normal. This was biopsied with a cold forceps for histology. The examined duodenum was normal. Biopsies for histology were taken with a cold forceps for evaluation of celiac disease. Impression: - Mucosal nodule found in the esophagus. Biopsied. - Small Hiatal Hernia. - Normal stomach. Biopsied. - Normal examined duodenum. Biopsied. Recommendation: - Await pathology results. - Continue present medications. - Use Prilosec (omeprazole) 40 mg PO daily. - Use sucralfate tablets 1 gram PO BID for 1 month. - Observe patient's clinical course. - (the script was sent to your pharmacy on file) Ray Castillo MD Ray CASTILLO MD 10/09/2019 10:39:04 AM Electronically signed by Ray CASTILLO MD Number of Addenda: 0 Note Initiated On: 10/09/2019 10:14 AM Estimated Blood Loss: Estimated blood loss: none.
[2019-10-09 11:00] VITALS: BP 118/83
== END 2019-10-09 11:16 | disposition home or self-care (01) ==
LOC: M OPP 09:00
PROVIDERS: ATTEND Internal Medicine Gastroenterology
DX: R12 Heartburn (principal); D13.0 Benign neoplasm of esophagus; D13.1 Benign neoplasm of stomach; D13.2 Benign neoplasm of duodenum; K44.9 Diaphragmatic hernia without obstruction or gangrene; K22.8 Other specified diseases of esophagus; E11.9 Type 2 diabetes mellitus without complications; F17.210 Nicotine dependence, cigarettes, uncomplicated; F17.220 Nicotine dependence, chewing tobacco, uncomplicated; Z79.899 Other long term (current) drug therapy; Z83.3 Family history of diabetes mellitus; Z80.3 Family history of malignant neoplasm of breast
CPT/HCPCS: 43239; 88305; J3010

== ENCOUNTER 2019-10-19 21:34 | Emergency (ER) | payer OTHER ==
[~2019-10-19] VITALS: Ht 175.3 cm; Wt 107.5 kg
[~2019-10-19 21:34] MED LIST changes: -LIDOCAINE 2% INJ 100 MG/5 ML SDV (FOR ANES.) As Ordered ONE; -NS 1,000 ML IV ONE; -propofoL 200 MG/20 ML VIAL As Ordered ONE
[2019-10-19] MEDS ORDERED: SUCR1TAB56 (21:44)
[2019-10-19] MEDS ORDERED: HumuLIN R (REGULAR) INSULIN (NovoLIN R) **100U/ML** PER UNIT IV ONE (22:30)
[2019-10-19] MEDS ORDERED: NS 1,000 ML IV ONE (22:30)
[2019-10-19 22:40] LABS: VENOUS BASE EXCESS -3.1 (-2.0-2.0); VENOUS HCO3 23.3 MEQ/L (23.0-27.0); VENOUS O2 SATURATION 84.7 % (60.0-80.0); VENOUS PARTIAL PRESSURE CO2 46.3 mmHg (38.0-50.0); VENOUS PARTIAL PRESSURE O2 51.9 mmHg (30.0-50.0); VENOUS PH 7.319 UNITS (7.330-7.430); VENOUS STANDARD HCO3 21.6 MEQ/L; VENOUS TOTAL CO2 24.7 MEQ/L (24.0-28.0)
[2019-10-19 22:44] LABS: BLOOD UREA NITROGEN 12 MG/DL (7-18); CALCIUM LEVEL 9.9 MG/DL (8.5-10.1); CARBON DIOXIDE LEVEL 26 MEQ/L (21-32); CHLORIDE LEVEL 103 MEQ/L (98-107); GLOMERULAR FILTRATION RATE > 60.0 (>60); GLUCOSE, FASTING 381 MG/DL (70-100); LIPASE 173 U/L (73-393); POTASSIUM SERUM 4.2 MEQ/L (3.5-5.1); SODIUM LEVEL 133 MEQ/L (136-145)
[2019-10-19 22:47] LABS: BASO % 0.4 % (0.0-1.0); EOS # 0.2 10^3/uL (0.0-0.5); HEMOGLOBIN 16.1 g/dl (13.5-17.5); LYMPH # 3.2 10^3/uL (1.5-5.0); LYMPH % 41.2 % (24.0-44.0); MEAN CORPUSCULAR HGB CONC 34.3 g/dl (32.0-36.5); MEAN CORPUSCULAR VOLUME 81.7 fl (80.0-96.0); MONO # 0.4 10^3/uL (0.0-0.8); MONO % 5.4 % (0.0-5.0); NEUTROPHILS % 50.7 % (36.0-66.0); PLATELET COUNT, AUTOMATED 193 10^3/uL (150-450); RED BLOOD COUNT 5.75 10^6/uL (4.30-6.10); WHITE BLOOD COUNT 7.8 10^3/uL (4.0-10.0)
[2019-10-19 23:12] LABS: HEMOGLOBIN A1c 10.1 %
[2019-10-19 23:45] VITALS: BP 125/74
[2019-10-19] MEDS ORDERED: METF500T13 PO (23:50)
== END 2019-10-19 23:58 | disposition home or self-care (01) ==
LOC: M ED 21:34
DX: E11.65 Type 2 diabetes mellitus with hyperglycemia (principal); K21.9 Gastro-esophageal reflux disease without esophagitis; Z79.899 Other long term (current) drug therapy; Z79.84 Long term (current) use of oral hypoglycemic drugs

== ENCOUNTER → 2020-03-16 | Outpatient (REF) | payer OTHER, MEDICAID ==
[~2020-03-16] MED LIST changes: +METF500T13 PO; +SUCR1TAB56
[2020-03-16 18:54] LABS: BASO % 0.6 % (0.0-1.0); EOS # 0.2 10^3/uL (0.0-0.5); EOS % 2.4 % (0.0-3.0); HEMOGLOBIN 16.4 g/dl (13.5-17.5); LYMPH # 2.6 10^3/uL (1.5-5.0); LYMPH % 39.7 % (24.0-44.0); MEAN CORPUSCULAR HEMOGLOBIN 28.2 pg (27.0-33.0); MEAN CORPUSCULAR HGB CONC 33.5 g/dl (32.0-36.5); MEAN CORPUSCULAR VOLUME 84.2 fl (80.0-96.0); MONO # 0.4 10^3/uL (0.0-0.8); MONO % 5.6 % (0.0-5.0); NEUTROPHILS # 3.4 10^3/uL (1.5-8.5); NEUTROPHILS % 51.5 % (36.0-66.0); PLATELET COUNT, AUTOMATED 181 10^3/uL (150-450); RED BLOOD COUNT 5.82 10^6/uL (4.30-6.10); WHITE BLOOD COUNT 6.7 10^3/uL (4.0-10.0)
[2020-03-16 18:59] LABS: ALBUMIN 4.2 GM/DL (3.2-5.2); ALT/SGPT 337 U/L (12-78); BILIRUBIN,TOTAL 0.5 MG/DL (0.2-1.0); BLOOD UREA NITROGEN 7 MG/DL (7-18); CALCIUM LEVEL 9.3 MG/DL (8.5-10.1); CARBON DIOXIDE LEVEL 26 MEQ/L (21-32); CHLORIDE LEVEL 103 MEQ/L (98-107); CHOLESTEROL LEVEL 223 MG/DL (<200); CHOLESTEROL RISK RATIO 7.193 (<5); FREE T4 1.08 NG/DL (0.76-1.46); GLOMERULAR FILTRATION RATE > 60.0 (>60); GLUCOSE, FASTING 271 MG/DL (70-100); HDL CHOLESTEROL 31 MG/DL (>40); LDL CHOLESTEROL 146 MG/DL (<100); NON-HDL-C 192 MG/DL; POTASSIUM SERUM 4.1 MEQ/L (3.5-5.1); SODIUM LEVEL 137 MEQ/L (136-145); TOTAL PROTEIN 7.9 GM/DL (6.4-8.2); TRIGLYCERIDES LEVEL 232 MG/DL (<150)
[2020-03-16 19:14] LABS: HEMOGLOBIN A1c 11.1 %
[2020-03-16 20:08] LABS: TOTAL 25(OH) VITAMIN D 26.5 NG/ML (30.0-100.0)
== END ==
LOC: M LAB REF 17:43
PROVIDERS: ATTEND Nurse Practitioner Family
DX: Z68.35 Body mass index [BMI] 35.0-35.9, adult (principal); E11.9 Type 2 diabetes mellitus without complications; G44.89 Other headache syndrome; R73.9 Hyperglycemia, unspecified; E66.9 Obesity, unspecified

== ENCOUNTER 2020-04-25 02:12 | Emergency (ER) | payer MEDICAID, OTHER ==
[~2020-04-25] VITALS: Ht 175.3 cm; Wt 104.5 kg
[2020-04-25] MEDS ORDERED: BOOSTRIX/ADACEL VACCINE (DIPHTH/PERTUSS/ACELL/TETANUS) 0.5ML SYR IM ONE (03:15)
--- NOTE | 2020-04-25 03:21 | REPVR ---
PROCEDURE INFORMATION: Exam: XR Right Hand Exam date and time: 04/25/2020 2:46 AM Age: 25 years old Clinical indication: Other: Punched wall; Additional info: Trauma TECHNIQUE: Imaging protocol: XR Right hand. Views: 3 or more views. COMPARISON: WI Hand, Pa, Lat 09/09/2018 2:02 AM FINDINGS: Bones/joints: Normal. A fracture or dislocation. Soft tissues: Soft tissue swelling of the distal dorsum of the hand. IMPRESSION: 1. Soft tissue swelling of the dorsum of the hand over distal metacarpals. 2. Otherwise negative right hand. No fracture. Electronically signed by: Armen Ann On 04/25/2020 03:20:44 AM
[2020-04-25 04:07] VITALS: BP 135/60
== END 2020-04-25 04:08 | disposition home or self-care (01) ==
LOC: M ED 02:12
DX: S60.221A Contusion of right hand, initial encounter (principal); W22.8XXA Striking against or struck by other objects, initial encounter; Y92.9 Unspecified place or not applicable; Y93.9 Activity, unspecified; Y99.9 Unspecified external cause status

== ENCOUNTER 2020-06-19 17:05 | Emergency (ER) | payer OTHER ==
[~2020-06-19] VITALS: Ht 175.3 cm; Wt 100.7 kg
[2020-06-19] MEDS ORDERED: OMEP-221 PO (17:36)
[2020-06-19 19:18] LABS: BASO % 0.4 % (0.0-1.0); EOS # 0.1 10^3/uL (0.0-0.5); EOS % 0.9 % (0.0-3.0); HEMATOCRIT 47.5 % (42.0-52.0); HEMOGLOBIN 15.8 g/dl (13.5-17.5); LYMPH # 2.7 10^3/uL (1.5-5.0); LYMPH % 28.8 % (24.0-44.0); MEAN CORPUSCULAR HEMOGLOBIN 27.7 pg (27.0-33.0); MEAN CORPUSCULAR HGB CONC 33.3 g/dl (32.0-36.5); MEAN CORPUSCULAR VOLUME 83.2 fl (80.0-96.0); MONO # 0.4 10^3/uL (0.0-0.8); MONO % 4.7 % (0.0-5.0); PLATELET COUNT, AUTOMATED 236 10^3/uL (150-450); RED BLOOD COUNT 5.71 10^6/uL (4.30-6.10); WHITE BLOOD COUNT 9.3 10^3/uL (4.0-10.0)
[2020-06-19 19:49] LABS: ALBUMIN 4.4 GM/DL (3.2-5.2); ALT/SGPT 293 U/L (12-78); BILIRUBIN,DIRECT 0.2 MG/DL (0.0-0.2); BILIRUBIN,TOTAL 0.5 MG/DL (0.2-1.0); BLOOD UREA NITROGEN 12 MG/DL (7-18); CALCIUM LEVEL 9.7 MG/DL (8.5-10.1); CARBON DIOXIDE LEVEL 26 MEQ/L (21-32); CHLORIDE LEVEL 103 MEQ/L (98-107); CREATININE FOR GFR 1.08 MG/DL (0.70-1.30); GLOMERULAR FILTRATION RATE > 60.0 (>60); GLUCOSE, FASTING 303 MG/DL (70-100); LIPASE 129 U/L (73-393); POTASSIUM SERUM 4.3 MEQ/L (3.5-5.1); SODIUM LEVEL 140 MEQ/L (136-145); TOTAL PROTEIN 8.4 GM/DL (6.4-8.2)
[2020-06-19 20:17] LABS: HEMOGLOBIN A1c 10.8 %
[2020-06-19 20:35] LABS: HEPATITIS B SURFACE ANTIGEN NEGATIVE (NEGATIVE)
--- NOTE | 2020-06-19 20:57 | REPVR ---
PROCEDURE INFORMATION: Exam: CT Abdomen And Pelvis Without Contrast Exam date and time: 06/19/2020 8:08 PM Age: 25 years old Clinical indication: Abdominal pain; Other: Suprapubic; Additional info: Suprapubic pain TECHNIQUE: Imaging protocol: Computed tomography of the abdomen and pelvis without contrast. Radiation optimization: All CT scans at this facility use at least one of these dose optimization techniques: automated exposure control; mA and/or kV adjustment per patient size (includes targeted exams where dose is matched to clinical indication); or iterative reconstruction. COMPARISON: CT ABD/PEL W/IV CONTRAST ONLY 08/22/2019 7:40 AM FINDINGS: Liver: There is hepatomegaly and hepatic steatosis. No liver masses are seen.There has been prior appendectomy. Gallbladder and bile ducts: Normal. No calcified stones. No ductal dilation. Pancreas: Normal. No ductal dilation. Spleen: Mild splenomegaly. Adrenal glands: Normal. No mass. Kidneys and ureters: Normal. No hydronephrosis. Stomach and bowel: Unremarkable. No obstruction. No mucosal thickening. Appendix: No evidence of appendicitis. Intraperitoneal space: Unremarkable. No free air. No significant fluid collection. Vasculature: Unremarkable. No abdominal aortic aneurysm. Lymph nodes: Unremarkable. No enlarged lymph nodes. Urinary bladder: Unremarkable as visualized. Reproductive: Unremarkable as visualized. Bones/joints: Unremarkable. No acute fracture. Soft tissues: Small fat containing umbilical hernia. IMPRESSION: 1. Hepatic steatosis and hepatomegaly. Mild splenomegaly. 2. No acute findings. Electronically signed by: Isidro Blair On 06/19/2020 20:58:22 PM
[2020-06-19 21:01] LABS: HEPATITIS C VIRUS ABY INDEX < 0.0 INDEX (<0.8)
[2020-06-19 21:02] LABS: HEPATITIS B CORE ANTIBODY IGM NEGATIVE (NEGATIVE)
[2020-06-19 21:05] LABS: HEPATITIS A ANTIBODY IGM NEGATIVE (NEGATIVE)
[2020-06-19] MEDS ORDERED: METF10004 PO (21:19)
[2020-06-19 21:27] VITALS: BP 142/80
== END 2020-06-19 21:29 | disposition home or self-care (01) ==
LOC: M ED 17:05
DX: E11.65 Type 2 diabetes mellitus with hyperglycemia (principal); K75.9 Inflammatory liver disease, unspecified; I10 Essential (primary) hypertension; Z79.899 Other long term (current) drug therapy; Z79.84 Long term (current) use of oral hypoglycemic drugs; Z87.891 Personal history of nicotine dependence

== ENCOUNTER 2020-07-11 19:46 | Emergency (ER) | payer OTHER ==
[~2020-07-11 19:46] MED LIST changes: +METF10004 PO; +OMEP-221 PO
[2020-07-11 22:13] LABS: RSV AMPLIFICATION NEGATIVE (NEGATIVE)
--- NOTE | 2020-07-11 22:53 | REPVR ---
PROCEDURE INFORMATION: Exam: XR Chest, 1 View Exam date and time: 07/11/2020 9:24 PM Age: 25 years old Clinical indication: Chest pain; Type not specified; Additional info: Cough TECHNIQUE: Imaging protocol: XR of the chest Views: 1 view. COMPARISON: CR PORTABLE CHEST X-RAY 06/16/2019 10:55 PM FINDINGS: Lungs: Unremarkable. No consolidation. Pleural space: Unremarkable. No pleural effusion. No pneumothorax. Heart/Mediastinum: Unremarkable. No cardiomegaly. Bones/joints: Unremarkable. IMPRESSION: No acute findings. Electronically signed by: Isidro Blair On 07/11/2020 22:53:08 PM
[2020-07-11 23:15] VITALS: BP 129/62
== END 2020-07-11 23:35 | disposition home or self-care (01) ==
LOC: M ED 19:46
DX: R07.89 Other chest pain (principal); R05 Cough; E11.9 Type 2 diabetes mellitus without complications; Z79.899 Other long term (current) drug therapy; Z79.84 Long term (current) use of oral hypoglycemic drugs

== ENCOUNTER 2020-07-12 20:54 | Emergency (ER) | payer OTHER ==
[~2020-07-12] VITALS: Ht 175.3 cm; Wt 99.6 kg
[2020-07-12] MEDS ORDERED: ACETAMINOPHEN 325 MG TAB PO ONE (22:30)
[2020-07-12 22:51] LABS: HEMATOCRIT 45.1 % (42.0-52.0); HEMOGLOBIN 14.6 g/dl (13.5-17.5); MEAN CORPUSCULAR HEMOGLOBIN 27.5 pg (27.0-33.0); MEAN CORPUSCULAR HGB CONC 32.4 g/dl (32.0-36.5); MEAN CORPUSCULAR VOLUME 85.1 fl (80.0-96.0); PLATELET COUNT, AUTOMATED 161 10^3/uL (150-450); WHITE BLOOD COUNT 5.7 10^3/uL (4.0-10.0)
[2020-07-12 23:26] LABS: BLOOD UREA NITROGEN 11 MG/DL (7-18); CALCIUM LEVEL 8.8 MG/DL (8.5-10.1); CARBON DIOXIDE LEVEL 24 MEQ/L (21-32); CHLORIDE LEVEL 105 MEQ/L (98-107); CREATININE FOR GFR 0.99 MG/DL (0.70-1.30); GLOMERULAR FILTRATION RATE > 60.0 (>60); GLUCOSE, FASTING 185 MG/DL (70-100); POTASSIUM SERUM 3.5 MEQ/L (3.5-5.1); SODIUM LEVEL 138 MEQ/L (136-145)
[2020-07-12 23:42] VITALS: BP 107/57
== END 2020-07-12 23:45 | disposition home or self-care (01) ==
LOC: M ED 20:54
DX: R53.81 Other malaise (principal); R53.83 Other fatigue; B34.9 Viral infection, unspecified; E11.9 Type 2 diabetes mellitus without complications; K21.9 Gastro-esophageal reflux disease without esophagitis; Z79.899 Other long term (current) drug therapy

== ENCOUNTER 2020-07-15 20:47 | Emergency (ER) | payer OTHER ==
[~2020-07-15] VITALS: Ht 172.7 cm; Wt 97.6 kg
[2020-07-15] MEDS ORDERED: IBUP80TA PO (21:02)
[2020-07-15] MEDS ORDERED: ACETAMINOPHEN 500 MG TAB PO ONE (21:15)
[2020-07-15] MEDS ORDERED: MAGIC MOUTHWASH SUSPENSION BTL SS STA (23:20)
[2020-07-15] MEDS ORDERED: BENZONATATE 100 MG CAP PO ONE (23:30)
[2020-07-15] MEDS ORDERED: AMOXICILLIN 500 MG CAP PO ONE (23:30)
[2020-07-15] MEDS: ALBUTEROL 90 MCG/ACT 8GM HFA INHALER INH SCH (23:37)
[2020-07-16] MEDS: ALBUTEROL 90 MCG/ACT 8GM HFA INHALER INH SCH ×2 (00:02→00:21)
--- NOTE | 2020-07-16 00:07 | REPVR ---
PROCEDURE INFORMATION: Exam: XR Chest, 1 View Exam date and time: 07/15/2020 11:20 PM Age: 25 years old Clinical indication: Other: Cough fever; Additional info: Cough, fever TECHNIQUE: Imaging protocol: XR of the chest Views: 1 view. COMPARISON: CR Chest, 1 view 07/11/2020 10:29 PM FINDINGS: Lungs: Lungs are diffusely hypoexpanded. No evidence of pulmonary edema. Retrocardiac opacity could represent pneumonia. Pleural space: No pleural effusion. No pneumothorax. Heart/Mediastinum: Heart and mediastinal contours are normal, given the degree of inflation. Bones/joints: Osseous structures show no concerning abnormality. Soft tissues: No asymmetry of the extrathoracic soft tissues. IMPRESSION: Hypoexpanded lungs, with concern for retrocardiac pneumonia. The opacity was not present on the prior exam Electronically signed by: Tello Gonzalez On 07/16/2020 00:07:30 AM
[2020-07-16 00:20] LABS: RSV AMPLIFICATION NEGATIVE (NEGATIVE)
[2020-07-16] MEDS ORDERED: MAGICMW SSP (01:30)
[2020-07-16] MEDS ORDERED: TESS100C PO (01:30)
[2020-07-16] MEDS ORDERED: NAPR-837 PO (01:30)
[2020-07-16] MEDS ORDERED: PROAAER10 INH (01:30)
[2020-07-16] MEDS ORDERED: AUGM875T28 PO (01:30)
[2020-07-16 01:37] VITALS: BP 122/73
== END 2020-07-16 01:44 | disposition home or self-care (01) ==
LOC: M ED 20:47
DX: J18.9 Pneumonia, unspecified organism (principal); J02.0 Streptococcal pharyngitis; E11.9 Type 2 diabetes mellitus without complications; K21.9 Gastro-esophageal reflux disease without esophagitis; Z79.899 Other long term (current) drug therapy; Z79.84 Long term (current) use of oral hypoglycemic drugs

== ENCOUNTER 2020-07-18 17:01 | Inpatient (IN) | payer OTHER ==
[~2020-07-18] VITALS: Ht 172.7 cm; Wt 88.6 kg
[~2020-07-18 17:01] MED LIST changes: +AUGM875T28 PO; +MAGICMW SSP; +NAPR-837 PO
[2020-07-18] MEDS ORDERED: NS 1,000 ML IV SCH (17:25)
[2020-07-18 17:49] LABS: HEMATOCRIT 44.7 % (42.0-52.0); HEMOGLOBIN 14.4 g/dl (13.5-17.5); LYMPH % 29.4 % (24.0-44.0); MEAN CORPUSCULAR HEMOGLOBIN 27.5 pg (27.0-33.0); MEAN CORPUSCULAR HGB CONC 32.2 g/dl (32.0-36.5); MEAN CORPUSCULAR VOLUME 85.5 fl (80.0-96.0); MONO # 0.2 10^3/uL (0.0-0.8); MONO % 5.8 % (0.0-5.0); NEUTROPHILS # 2.1 10^3/uL (1.5-8.5); NEUTROPHILS % 64.2 % (36.0-66.0); PLATELET COUNT, AUTOMATED 114 10^3/uL (150-450); RED BLOOD COUNT 5.23 10^6/uL (4.30-6.10); WHITE BLOOD COUNT 3.3 10^3/uL (4.0-10.0)
[2020-07-18] MEDS ORDERED: ACETAMINOPHEN 500 MG TAB PO ONE (18:00)
[2020-07-18] MEDS ORDERED: LevoFLOXacin IV 750 MG in IV 1 EA IV ONE (18:15)
[2020-07-18 18:16] LABS: ALBUMIN 3.8 GM/DL (3.2-5.2); ALT/SGPT 218 U/L (12-78); BILIRUBIN,DIRECT 0.3 MG/DL (0.0-0.2); BILIRUBIN,TOTAL 0.6 MG/DL (0.2-1.0); BLOOD UREA NITROGEN 9 MG/DL (7-18); CARBON DIOXIDE LEVEL 28 MEQ/L (21-32); CHLORIDE LEVEL 101 MEQ/L (98-107); CREATININE FOR GFR 1.05 MG/DL (0.70-1.30); GLOMERULAR FILTRATION RATE > 60.0 (>60); GLUCOSE, FASTING 276 MG/DL (70-100); POTASSIUM SERUM 3.5 MEQ/L (3.5-5.1); SODIUM LEVEL 137 MEQ/L (136-145); TOTAL PROTEIN 7.2 GM/DL (6.4-8.2)
[2020-07-18] MEDS ORDERED: NAPR-885 PO (18:22)
[2020-07-18] MEDS ORDERED: VENTAER INH (18:22)
[2020-07-18] MEDS ORDERED: OMEP-221 PO (18:22)
[2020-07-18] MEDS ORDERED: METF-877 PO (18:22)
[2020-07-18] MEDS ORDERED: MAGICMW SS (18:22)
[2020-07-18] MEDS ORDERED: AUGM875T28 PO (18:22)
[2020-07-18] MEDS ORDERED: TESS100C PO (18:22)
--- NOTE | 2020-07-18 18:34 | REP ---
INDICATION: DYSPNEA/COUGH COMPARISON: 07/15/2020 TECHNIQUE: Portable AP view of the chest FINDINGS: The mediastinum and cardiac silhouette are stable and within normal limits for portable technique. The lung mendoza demonstrate left perihilar and retrocardiac opacities compatible with acute pneumonia. Subtle right basilar opacity cannot be excluded as well. No definite effusion. No pneumothorax. IMPRESSION: Left perihilar and retrocardiac opacities compatible with pneumonia. Possible right basilar infiltrate as well. <Electronically signed by Jordi Noriega > 07/18/20 [id number]
[2020-07-18] MEDS ORDERED: KETOROLAC 30 MG/ML 1ML VIAL IV ONE (18:45)
[2020-07-18 18:49] LABS: RSV AMPLIFICATION NEGATIVE (NEGATIVE)
--- NOTE | 2020-07-18 18:57 | ECGEPIP ---
[facility] - ED Test Date: 2020-07-18 Pat Name: ROLA CEJA Department: Room: - Gender: Male [employer] Well[employer] Coordinator: LONNY : 1995 Requested By: Kerrie Hale Order Number: [id number] Reading MD: Kerrie Hale Measurements Intervals [place] Rate: 98 P: 10 TN: 159 QRS: -13 QRSD: 100 T: 1 QT: 313 QTc: 400 Interpretive Statements SINUS RHYTHM INDETERMINATE AXIS PATTERN CONSISTENT WITH PULMONARY DISEASE similar to prior EKG 11/02/18 Electronically Signed on 07-18-2020 18:57:00 EST by Kerrie Hale
[2020-07-18] MEDS ORDERED: ISOVUE-370 76% 100ML VIAL As Ordered ONE (18:59)
--- NOTE | 2020-07-18 21:37 | REPVR ---
PROCEDURE INFORMATION: Exam: CT Angiography Chest With Contrast Exam date and time: 07/18/2020 9:06 PM Age: 25 years old Clinical indication: Shortness of breath; Additional info: SOB TECHNIQUE: Imaging protocol: Computed tomographic angiography of the chest with intravenous contrast. 3D rendering (Not supervised by radiologist): MIP and/or 3D reconstructed images were created by the technologist. Radiation optimization: All CT scans at this facility use at least one of these dose optimization techniques: automated exposure control; mA and/or kV adjustment per patient size (includes targeted exams where dose is matched to clinical indication); or iterative reconstruction. Contrast material: ISOVUE 370; Contrast volume: 75 ml; Contrast route: INTRAVENOUS (IV); COMPARISON: CT ANGIO CHEST 03/17/2018 6:35 PM FINDINGS: Pulmonary arteries: No definite pulmonary embolism. Significant stairstep artifact related to misregistration. Aorta: Unremarkable. No aortic aneurysm. No aortic dissection. Lungs: Segmental and subsegmental atelectasis/consolidation noted in both upper lobes and both lower lobes. Pleural space: Unremarkable. No pneumothorax. No pleural effusion. Heart: There is cardiomegaly. Mediastinal space: Left hilar calcifications. Lymph nodes: Unremarkable. No enlarged lymph nodes. Liver: The liver is low in density. Spleen: The spleen is not imaged its in its entirety but measures at least 13.6 cm in craniocaudal span. Bones/joints: Unremarkable. No acute fracture. Soft tissues: Unremarkable. IMPRESSION: 1. Significant misregistration artifact. No definite pulmonary embolism noted. 2. Scattered segmental and subsegmental atelectasis and consolidation noted bilaterally. 3. Cardiomegaly. 4. Hepatic steatosis. 5. Splenomegaly. Electronically signed by: Shanna Choi On 07/18/2020 21:37:57 PM
--- NOTE | 2020-07-18 22:47 | HPEPDOC ---
[facility] Medical History & Physical Date of Admission Jul 18, 2020 Date of Service: Jul 18, 2020 History and Physical CHIEF COMPLAINT: SOB, Cough, Fever HISTORY OF PRESENT ILLNESS: 25 yo M HX of GERD and T2DM, presenting due to complaints of worsening fever and cough since Jul 11. His T-Max during this time was 103.7 and arrive to the ED on Jul 15, where he was diagnosed with strep throat and possible retrocardiac pneumonia but discharged with co-amoxiclav BID for 10 days. Patient denies missing any dosages. During this time, patient notes worsening dry cough, without blood or sputum, denies any chills, rhinorrhea, congestion, but notes mild anosmia/dysgeusia and SOB at rest and with exercise. He notes central chest pain 5/10, aching in nature sometimes radiating to right should not associated with sweating or palpitations. He denies any sick contacts, instead noting that he lives alone at home. Denies nausea, vomiting, dysuria, diarrhea, leg/calf pain, long periods of immobilization. In the ED, patient with temp of 100.8, requiring 6L O2 on NC to saturate 92%, HR 102. CXR showing left perihilar and retrocardiac opacities compatible with pneumonia as well as possible right basilar infiltrates. Labs significant for leukopenia of 3.3, low platelets of 114, and raised AST/ALT of 158/218 respectively. COVID and respiratory virus panel negative. Patient given a dose o f levoquin and fluids in ED. PAST MEDICAL HISTORY: T2DM, GERD PAST SURGICAL HISTORY: None SOCIAL HISTORY: Denies drinking, smoking or illicit drug use FAMILY HISTORY: Many, but patient unable to specify ALLERGIES: Please see below. REVIEW OF SYSTEMS: 10 point ROS performed and negative except per HPI HOME MEDICATIONS: Please see below. PHYSICAL EXAMINATION: Constitutional: In mild distress. On NC 6L . HEENT: RENE. EOMI. Back of throat unable to be visualized due to high mallampati score Chest: Non-tender to palpation. Morbiliform rash in around upper chest, neck and back Respiratory: Lungs with crackles bilaterally in anterior/posterior lung mendoza. No wheezing. No accessory inspiratory muscles use Cardiovascular: HS 1+ 2 normal, no regurgitations/added sounds. Tachycardiac Abdomen: Soft. Obese. BS+. Mild RUQ tenderness. Enlarged liver palpated Extremities: no pitting edema noted Neurologic: No gross FND. Power 5/5 in all extremities. AO x 3 LABORATORY DATA: See below. IMAGING: CXR: Left perihilar and retrocardiac opacities compatible with pneumonia. Possible right basilar infiltrate as well. CTAPE: 1. Significant misregistration artifact. No definite pulmonary embolism noted. 2. Scattered segmental and subsegmental atelectasis and consolidation noted bilaterally. 3. Cardiomegaly. 4. Hepatic steatosis. 5. Splenomegaly MICROBIOLOGY: Please see below. ASSESSMENT: 25 yo M HX of GERD and T2DM, presenting due to complaints of worsening fever and cough since Jul 11. Previously in the ED on Jul 16 and given co-amoxicav for 10 days without improvement. Given worsening hypoxia, tachycardia and fever, patient will be admitted for treatment of PE vs Pneumo ken. #Pneumonia - CXR showing left perihilar and retrocardiac opacities compatible with pneumonia as well as possible right basilar infiltrates -CTAPE not showing PE, only atelectasis and consolidation -CURB score: 1 -On admission, saturating 92% on 6L, progressing to needing 10L later in the night. ABG ordered -IV levoquin x 5 days. Ibuprofen PRN for pain and fever. Albuterol PRN -Incentive spirometer ordered -Sputum, blood cultures and RVP ordered. Pending legionella, strep, chlamydia and mycoplasma antigens #Strep Throat -C/W Co-amoxiclav x 7 days (end date 07/25) + Magic mouthwash as per last ED visit -C/W IVF @100 ml/hr #Raised liver enzymes - AST/ALT of 158/218. This has been down trending since February 2020 (AST/ALT of 220 and 337 respectively) -CTAPE showing hepatic steatosis -Pending liver US -Hep panel ordered #Thrombocytopenia -Previously normal in february -08/18 prolonged liver injury? CTAPE showing splenomegaly -Trend #GERD -May continue with home medication omeprazole 40 #T2DM -On Metformin 1000 BID -Hospital Rx: ISS, hypoglycemic protocol, accuchecks, consistent carbohydrate diet Diet: Consistent Carbohydrates Disposition: home DVT PPX: Lovenox [address] Mimi Israel MD Hospitalist Resident Vital Signs Vital Signs Date Time Temp Pulse Resp B/P (MAP) Pulse Ox O2 Delivery O2 Flow Rate FiO2 07/18/20 22:01 98.6 07/18/20 21:45 85 30 113/65 (81) 90 Nasal Cannula 6.0 07/18/20 17:21 93 Laboratory Data Labs 24H Laboratory Tests 2 07/18/20 17:33: Immature Granulocyte % (Auto) 0.6, Neutrophils (%) (Auto) 64.2, Lymphocytes (%) (Auto) 29.4, Monocytes (%) (Auto) 5.8H, Eosinophils (%) (Auto) 0.0, Basophils (%) (Auto) 0.0, Neutrophils # (Auto) 2.1, Lymphocytes # (Auto) 1.0L, Monocytes # (Auto) 0.2, Eosinophils # (Auto) 0.0, Basophils # (Auto) 0.0, Nucleated Red Blood Cells % (auto) 0.0, Anion Gap 8, Glomerular Filtration Rate > 60.0, Lactic Acid Level 2.0, Calcium Level 8.0L, Total Bilirubin 0.6, Direct Bilirubin 0.3H, Aspartate Amino Transf (AST/SGOT) 158H, Alanine Aminotransferase (ALT/SGPT) 218H, Alkaline Phosphatase 70, Total Protein 7.2, Albumin 3.8, Albumin/Globulin Ratio 1.1 07/18/20 18:00: Coronavirus (COVID-19)(PCR) NEGATIVE, Influenza Type A (RT-PCR) NEGATIVE, Influenza Type B (RT-PCR) NEGATIVE, Respiratory Syncytial Virus (PCR) NEGATIVE CBC/BMP Laboratory Tests 07/18/20 17:33 Microbiology Microbiology 07/18/20 Blood Culture, Received Pending Home Medications Scheduled Amoxicillin/Potassium Clav (Augmentin 875-125 Tablet) 1 Each Tablet, 1 TAB PO BID Metformin HCl (Metformin HCl) 1,000 Mg Tablet, 1,000 MG PO BID Omeprazole (Omeprazole) 40 Mg Capsule.dr, 40 MG PO QHS Scheduled PRN Albuterol Sulfate (Ventolin Hfa) 18 Gm Hfa.aer.ad, 2 PUFFS INH Q4H PRN for SOB/WHEEZING Benzonatate (Tessalon Perle) 100 Mg Capsule, 100 MG PO TID PRN for COUGH Magic Mouthwash (First-Mouthwash Blm) 1 Ea Susp, 10 ML SS QID PRN for MUCOSITIS (Diphenhydramine/maalox/lidocaine 1:1:1) May compound if kit unavailable/not covered by insurance Naproxen (Naproxen) 500 Mg Tablet, 500 MG PO BID PRN for PAIN Allergies Coded Allergies: No Known Allergies (Unverified , 10/08/19) A-FIB/CHADSVASC A-FIB History Current/History of A-Fib/PAF?: No GME ATTESTATION GME ATTESTATION My faculty preceptor for this patient encounter was physically present during the encounter and was fully available. All aspects of the patient interview, examination, medical decision making process, and medical care plan development were reviewed and approved by the faculty preceptor. The faculty preceptor is aware and concurs with the plan as stated in the body of this note and will attest to such by his/her cosignature. ATTENDING NOTE ITerrance, have independently examined this patient and performed my own physical exam, as well as reviewed the documentation and edited where necessary. I have discussed in detail with the resident / student the findings and plan of treatment as documented by the resident / student and edited their note. I agree with their findings and treatment plan and have edited their documentation. I will continue to follow the patient during this hospital stay. HAYDE ISRAEL M.D.,PGY-2 Jul 18, 2020 22:47 PRIYA JOLLEY MD Jul 19, 2020 06:18
[2020-07-18] MEDS ORDERED: MAGIC MOUTHWASH SUSPENSION BTL SS PRN (23:00)
[2020-07-18 23:02] VITALS: BP 124/55; O2SAT 89
[2020-07-18] MEDS ORDERED: DEXTROSE 50% 50 ML SYRINGE IV PRN (23:15)
[2020-07-18] MEDS ORDERED: GLUCOSE 4GM CHEW TABLET PO PRN (23:15)
[2020-07-18] MEDS ORDERED: GLUCAGON INJ 1MG VIAL SC PRN (23:15)
[2020-07-18 23:35] VITALS: O2SAT 90
[2020-07-18] MEDS: HumaLOG INSULIN (NovoLOG) PER UNIT SC SCH (23:35)
[2020-07-18] MEDS: AUGMENTIN 875 MG TAB PO SCH (23:35)
[2020-07-19] VITALS (14 sets, daily range): BP systolic 113–136; BP diastolic 60–65; O2SAT 91–97
[2020-07-19 00:12] LABS: ABG BASE EXCESS -0.5 (-2.0-2.0); ABG HCO3 25.1 MEQ/L (22.0-26.0); ABG O2 SATURATION 96.5 % (95.0-99.0); ABG PARTIAL PRESSURE CO2 44.7 mmHg (35.0-45.0); ABG PARTIAL PRESSURE O2 85.3 mmHg (75.0-100.0); ABG STANDARD HCO3 24.1 MEQ/L (22.0-26.0); ABG TOTAL CO2 26.5 MEQ/L (22.0-29.0); ABG pH (ARTERIAL) 7.368 UNITS (7.350-7.450)
[2020-07-19] MEDS: BENZONATATE 100 MG CAP PO PRN ×2 (00:34→16:33)
[2020-07-19] MEDS ORDERED: CEPACOL LOZENGE PO PRN ×2 (02:15→02:30)
[2020-07-19] MEDS: NAPROXEN 250 MG TAB PO PRN ×2 (05:44→16:43)
[2020-07-19 05:54] LABS: BASO % 0.2 % (0.0-1.0); HEMATOCRIT 41.5 % (42.0-52.0); HEMOGLOBIN 13.2 g/dl (13.5-17.5); LYMPH # 1.1 10^3/uL (1.5-5.0); LYMPH % 27.3 % (24.0-44.0); MEAN CORPUSCULAR HEMOGLOBIN 27.1 pg (27.0-33.0); MEAN CORPUSCULAR HGB CONC 31.8 g/dl (32.0-36.5); MEAN CORPUSCULAR VOLUME 85.2 fl (80.0-96.0); MONO # 0.2 10^3/uL (0.0-0.8); MONO % 4.9 % (0.0-5.0); NEUTROPHILS # 2.8 10^3/uL (1.5-8.5); NEUTROPHILS % 67.4 % (36.0-66.0); PLATELET COUNT, AUTOMATED 108 10^3/uL (150-450); RED BLOOD COUNT 4.87 10^6/uL (4.30-6.10); WHITE BLOOD COUNT 4.1 10^3/uL (4.0-10.0)
[2020-07-19 06:19] LABS: ALBUMIN 3.3 GM/DL (3.2-5.2); ALT/SGPT 184 U/L (12-78); BILIRUBIN,TOTAL 0.6 MG/DL (0.2-1.0); BLOOD UREA NITROGEN 10 MG/DL (7-18); CALCIUM LEVEL 7.5 MG/DL (8.5-10.1); CARBON DIOXIDE LEVEL 26 MEQ/L (21-32); CHLORIDE LEVEL 104 MEQ/L (98-107); CREATININE FOR GFR 0.88 MG/DL (0.70-1.30); GLOMERULAR FILTRATION RATE > 60.0 (>60); GLUCOSE, FASTING 252 MG/DL (70-100); POTASSIUM SERUM 3.6 MEQ/L (3.5-5.1); SODIUM LEVEL 136 MEQ/L (136-145); TOTAL PROTEIN 6.5 GM/DL (6.4-8.2)
[2020-07-19 08:56] LABS: C REACTIVE PROTEIN QUANTITATIV 2.43 MG/DL (0.00-0.30)
[2020-07-19 09:04] LABS: ERYTHROCYTE SEDIMENTATION RATE 20 mm/hr (0-15)
--- NOTE | 2020-07-19 09:05 | REP ---
INDICATION: transaminitis COMPARISON: None. TECHNIQUE: Real time larsen scale ultrasound examination using curved array transducer. FINDINGS: The liver is mildly echogenic suggesting fatty infiltration without focal hepatic lesion identified. Visualized portions of the pancreas are normal. The gallbladder include a 3 mm echogenic focus along the anterior wall without shadowing suggesting small benign polyp. No cholelithiasis, wall thickening, or pericholecystic fluid is appreciated. No biliary ductal dilatation noted and the common bile duct measures 5 mm diameter. The right kidney is normal in reniform shape and echogenicity without hydronephrosis and measures 12.3 x 5.0 x 7.3 cm. No ascites in the visualized right upper quadrant. IMPRESSION: 1. Mild hepatosteatosis suggested without focal hepatic lesion. 2. 3 mm benign appearing gallbladder polyp. <Electronically signed by Jordi Noriega > 07/19/20 0901
[2020-07-19] MEDS: AUGMENTIN 875 MG TAB PO SCH (09:12)
[2020-07-19] MEDS: HumaLOG INSULIN (NovoLOG) PER UNIT SC SCH ×4 (09:13→21:00)
[2020-07-19] MEDS: ENOXAPARIN 40MG/0.4ML SYRINGE (J1650 PER 10MG) SC SCH (09:13)
[2020-07-19] MEDS ORDERED: SODIUM CHLORIDE 0.9% 1000ML IV ONE (09:30)
[2020-07-19 10:09] LABS: ACETAMINOPHEN LEVEL < 2.0 UG/ML (10.0-30.0); CPK CREATINE PHOSPHOKINASE 114 U/L (39-308); SALICYLATE LEVEL < 1.7 MG/DL (5.0-30.0)
[2020-07-19 10:10] LABS: MONO REFLEX EBV COMP NEGATIVE (NEGATIVE)
[2020-07-19 10:28] LABS: INR 1.12; PROTHROMBIN TIME 14.6 SECONDS (12.5-14.3)
[2020-07-19 10:29] LABS: PARTIAL THROMBOPLASTIN TIME 35.2 SECONDS (24.2-38.5)
[2020-07-19] MEDS: oxyCODONE 5MG TAB PO PRN ×2 (11:30→22:21)
[2020-07-19] MEDS: NS 1,000 ML IV SCH (11:31)
[2020-07-19] MEDS: LIDOCAINE 5% (LIDODERM) PATCH TD SCH (12:03)
[2020-07-19] MEDS ORDERED: IBUPROFEN 400MG TAB PO ONE (13:00)
--- NOTE | 2020-07-19 13:44 | REP ---
INDICATION: Question DVT COMPARISON: None. TECHNIQUE: Little scale and color Doppler evaluation bilateral lower extremities using linear high frequency transducer. FINDINGS: Ultrasound examination of the right and left lower extremity deep venous structures from the common femoral vein to the popliteal vein demonstrates normal compressibility flow and wave patterns in response to respiration and augmentation. There is no evidence for deep venous thrombosis. IMPRESSION: No evidence for deep venous thrombosis. <Electronically signed by Jordi Noriega > 07/19/20 [id number]
--- NOTE | 2020-07-19 16:11 | CR ---
PULMONARY CONSULTATION DATE: 07/19/2020 CHIEF COMPLAINT: Fever, shortness of breath. HISTORY OF PRESENT ILLNESS: Mr. Montilla is a 25-year-old male with a history of GERD and diabetes who presented with complaints of fever and cough as well as new hypoxia. The patient had initially gone to the ED on the and then the with complaints of fever. He had a Strep throat culture done at that time, the results of which came back a few days later when he presented to the ED again on July 15 with complaints of fever as well as sore throat and cough. He was treated with Augmentin b.i.d. with a ten day course and discharged from the emergency room. The patient was also taking ibuprofen at home, 1600 mg b.i.d. but denies any Tylenol and no other uisr-ldg-liwizho cold medication. He states in the past few days, however, he started noticing pain particularly with inspiration on the right upper quadrant radiating to the right lower back which was causing him more discomfort. Given the pain, he presented back to the ED and was now noted to be hypoxic on room air. Throughout, he continued to have episodes of fever as well as persistent cough with only a scant amount of sputum and no hemoptysis. He did not notice any significant chills and denied noticing any myalgias. He did have some intermittent loss of smell during this as well as some shortness of breath particularly with activity. His main complaint that he reports now is the pain with deep inspiration and he states he has not been taking deep breaths because of it. He has not had any nausea or vomiting and he denied any diarrhea. The patient denied noticing any leg pain or leg swelling and no travel recently or prolonged periods of immobilization. The patient also denied any exposures to anyone with COVID-19. During his presentations to the ED room, he was tested each time for COVID and was negative with multiple tests. He was tested again this time for COVID as well as a respiratory panel as well and both tests were negative for COVID-19. The patient initially was on six liters of nasal cannula oxygen supplementation. He continued to have hypoxia, however, and was progressed to 15 liters a minute and used cannula oxygen with a Ventimask on top to maintain the sats above 92%. Today, the patient states he was given some pain medication which had helped with pain control for only three hours. He does have an incentive spirometer at bedside which he has not been using due to the pain. MEDICAL AND SURGICAL HISTORY: 1. Diabetes. 2. GERD. 3. Appendectomy. FAMILY HISTORY: The patient denies any family history of liver disease or lung disease. SOCIAL HISTORY: The patient denies any history of tobacco use or alcohol use and no illicit drug use. The patient lives alone. He states he is currently not working. HOME MEDICATIONS: 1. Augmentin. 2. Metformin. 3. Omeprazole. 4. Albuterol p.r.n. 5. Benzonatate Perles. 6. Magic mouthwash. 7. Naproxen p.r.n. ALLERGIES: No known drug allergies. PHYSICAL EXAMINATION: Vitals: T max 100.8, T current 100.1, pulse of 92, respirations 24, blood pressure 114/62, O2 sat 91-94% on 15 liters a minute nasal cannula plus Ventimask. General: The patient is an overweight male, is lying in the bed and appears mildly uncomfortable due to pain. He is not using any accessory muscles for respiration but is noted to be tachypneic taking a shallow breath. HEENT: Normocephalic, atraumatic. Pupils are reactive to light bilaterally. There are moist mucous membranes noted, Mallampati 4. Neck: Supple. Trachea is midline. The patient has a mild salmon-colored morbilliform rash in the upper neck and chest region. Cardiac: Regular rate and rhythm. Normal S-1, S-2. No murmurs appreciated. Respiratory: Diminished breath sounds bilaterally due to poor inspiratory effort with some mild crackles at the bases. No wheezing noted. Abdomen: Obese, soft, nondistended. There is right upper quadrant tenderness with hepatomegaly. Extremities: There is no lower extremity edema noted bilaterally. There is no calf tenderness bilaterally. LABORATORY DATA: WBC 4.1, hemoglobin 13.2, platelets 108. Chemistries: Sodium 136, potassium 3.6. Chloride is 104. Bicarb is 26, BUN 10. Creatinine is 0.88. Glucose is 252. Calcium is 7.5. D bili 0.3, T bili 0.6, AST 130, ALT 184. Alk phos 64, CRP 2.43, albumin 3.3. ABG: pH 7.368, pCO2 of 49.7, pO2 of 85.3. Micro: Respiratory viral panel PCR negative. Repeat SARS-CoV-2, influenza A/B and RSV negative. IMAGING: CT angio showed poor inspiratory effort. It appears to be an expiratory film. There is no definite PE but there is significant artifact due to misregistration. There is some mild cardiomegaly and left hilar lymph node calcification. The right ventricle appears borderline enlarged. There is atelectasis and consolidation in the upper lobes as well as atelectasis and consolidation in the lower lobes bilaterally. There is splenomegaly. The liver also appears borderline enlarged with hepatic steatosis. ASSESSMENT AND PLAN: Mr. Montilla is a 25-year-old male with a past medical history of diabetes and GERD who presented with complaints of fever, shortness of breath and right upper quadrant pain. The patient's symptoms started on July 11 with fever and shortness of breath and cough. He had gone to the ED multiple times and at one visit was diagnosed with Strep pharyngitis as he did also complain of some throat pain. He was given Augmentin as an outpatient for antibiotics which he took for the past few days, however, had symptoms now of pain particularly with inspiration in the right upper quadrant radiating to the back and persistent fever and shortness of breath prompting his return. In the ED, he was now noted to be hypoxic requiring nasal cannula oxygen supplementation. Acute hypoxemic respiratory failure and fever. The patient's CT angiogram did not show any evidence of PE although it was somewhat a technically challenging study. The film appears to be expiration. He does have evidence of atelectasis and consolidation in the upper and lower lobes bilaterally and given his symptoms, suspect some of it is hypoxia and the atelectasis is from splinting. The patient was febrile again on this admission and likely does have pneumonia. Given his initial symptoms, there is also suspicion that he may have had a viral illness, perhaps EBV given his throat pain as well as with the rash noted on his neck and chest and with his splenomegaly on imaging. The patient does also have transaminitis although it appears he has had elevated AST/ALT since February of this year which had not been previously evaluated. He does have evidence of hepatic steatosis on imaging and some of the transaminitis may be secondary hepatic steatosis but may also be due to an acute viral illness or hepatitis. He does not appear to have any evidence of obstructive findings with his liver function testing or on his liver ultrasound. Would check serologies for EBV as well as for atypical pneumonia. Would continue with Levaquin for a broad spectrum antibiotic and continue to monitor and trend procalcitonin for de-escalation or perhaps further broadening if needed. Suspect patient does have a significant degree of hypoxia related to atelectasis and splinting. Would ensure he has more adequate pain control so that he can use his incentive spirometer which he has currently at the bedside. We will continue with nasal cannula oxygen supplementation with a bubble humidifier and Ventimask to maintain O2 sat above 90%. Given the evidence of cardiomegaly on imaging and a borderline enlarged right ventricle with his hypoxia, would also check echocardiogram with a bubble study to ensure he does not have any shunt physiology. We will also check hepatitis as well as acetaminophen and salicylate levels. Would also check for autoimmune hepatitis serologies with anti-smooth muscle antibody as well as IBRAHIMA. Some of his pain while appears to be local in the right upper quadrant may also potentially be pleuritic in nature and so we will check the IBRAHIMA to evaluate for lupus as well and consider double-stranded DNA. We will check the CPK also given the transaminitis. We will check coags for any disruption in his synthetic liver function although less likely. The patient has mild thrombocytopenia which may be in the setting of his splenomegaly. We will continue to monitor. DVT prophylaxis. Lovenox. Code Status: FULL CODE. MTDD
--- NOTE | 2020-07-19 20:39 | IPNPDOC ---
Subjective Date Seen The patient was seen on 07/19/20. Subjective Chief Complaint/HPI Mr. Montilla is a 25-year-old male with type 2 diabetes mellitus who presents with worsening shortness of breath and cough since July 11. This morning, there was some uncertainty about patient's COVID status. Patient reports loss of taste. He has been tested negative twice. Initially heard that he had a family member that was COVID positive, but that was false. Then heard that he play darts with people who were COVID positive, but patient denied this. Otherwise, he was seen in the room. Still reporting chest pain in shortness of breath. C hest pain is pleuritic and worse with movement. Objective Physical Examination General Exam: Positive: Alert, Cooperative, Mild Distress Eye Exam: Positive: EOMI; Negative: Sclera icteric Neck Exam: Positive: Supple Chest Exam: Positive: Rhonchi, Diminished Heart Exam: Positive: Rate Normal, Regular Rhythm Abdomen Exam: Positive: Normal bowel sounds, Soft, Other (obese) Extremity Exam: Negative: Edema Assessment /Plan Assessment Mr. Montilla is a 25-year-old male with type 2 diabetes mellitus with acute hypoxic respiratory failure secondary to pneumonia and splinting as well as t ransaminitis. Discuss case with home/crit care, Dr. Ortega. We'll work up autoimmune hepatitis. Also currently pending hepatitis panel. Otherwise continue with levofloxacin. Would not need Augmentin at this time. Plan/VTE VTE Prophylaxis Ordered?: Yes Plan 1. Acute hypoxic respiratory failure Secondary to pneumonia and splinting Pulmonary following, respirations appreciated Patient currently on Ventimask 2. Pneumonia On levofloxacin Continues to have fevers Pending atypical pneumonia workup 3. Questionable COVID status Patient reports no COVID exposures He does report loss of taste Patient not a candidate for remdesivir due to laminitis 2 negative COVID tests 4. Strep pharyngitis Patient was in the ED on July 11 and for fever Test positive for strep pharyngitis Was on Augmentin, but now on levofloxacin 5. Transaminitis Elevated AST and ALT Possible EBV. Pending EBV serologies Autoimmune hepatitis initiated Pending hepatitis panel Cautious with Tylenol Acetaminophen level and salicylate level low 6. Diabetes mellitus Sliding scale insulin Carbohydrate consistent diet 7. DVT prophylaxis Lovenox VS, I&O, 24H, Fishbone Vital Signs/I&O Vital Signs Date Time Temp Pulse Resp B/P (MAP) Pulse Ox O2 Delivery O2 Flow Rate FiO2 07/19/20 16:49 97 Venturi Mask 15.0 50 07/19/20 16:00 102.3 88 19 117/65 (82) I&O- Last 24 Hours up to 6 AM 07/19/20 06:00 Intake Total 450 ml Output Total 500 ml Balance -50 ml Laboratory Data 24H LABS Laboratory Tests 2 07/18/20 23:34: Bedside Glucose (Misc Panel) 178H 07/18/20 23:49: Blood Gas Bicarbonate Standard 24.1, Arterial Blood pH 7.368, Arterial Blood Partial Pressure CO2 44.7, Arterial Blood Partial Pressure O2 85.3, Arterial Blood Total CO2 26.5, Arterial Blood HCO3 25.1, Arterial Blood Base Excess -0.5, Arterial Blood Oxygen Saturation 96.5 07/19/20 05:25: Procalcitonin 0.13 07/19/20 05:28: Immature Granulocyte % (Auto) 0.2, Neutrophils (%) (Auto) 67.4H, Lymphocytes (%) (Auto) 27.3, Monocytes (%) (Auto) 4.9, Eosinophils (%) (Auto) 0.0, Basophils (%) (Auto) 0.2, Neutrophils # (Auto) 2.8, Lymphocytes # (Auto) 1.1L, Monocytes # (Auto) 0.2, Eosinophils # (Auto) 0.0, Basophils # (Auto) 0.0, Nucleated Red Blood Cells % (auto) 0.0, Erythrocyte Sedimentation Rate 20H, Anion Gap 6L, Glomerular Filtration Rate > 60.0, Calcium Level 7.5L, Total Bilirubin 0.6, Aspartate Amino Transf (AST/SGOT) 130H, Alanine Aminotransferase (ALT/SGPT) 184H, Alkaline Phosphatase 64, C-Reactive Protein, Quantitative 2.43H, Total Protein 6.5, Albumin 3.3, Albumin/Globulin Ratio 1.0 07/19/20 09:28: 07/19/20 09:35: Prothrombin Time 14.6H, Prothromb Time International Ratio 1.12, Activated Partial Thromboplast Time 35.2, Fibrinogen 394, D-Dimer, Quantitative 671.07H, Total Creatine Kinase 114, Salicylates Level < 1.7L, Acetaminophen Level < 2.0L, Monoscreen NEGATIVE 07/19/20 11:34: Bedside Glucose (Misc Panel) 215H 07/19/20 18:12: Bedside Glucose (Misc Panel) 155H 07/19/20 18:14: Methicillin-Resist S.aureus DNA PCR NOT DETECTED CBC/BMP Laboratory Tests 07/19/20 05:28 Microbiology Microbiology 07/18/20 Respiratory Virus Panel (PCR) ([facility]) - Final, Complete 07/18/20 Blood Culture - Preliminary, Resulted No growth after 24 hours . All specim... NIRALI SANCHEZ DO Jul 19, 2020 20:39
[2020-07-19] MEDS: **NOTE PATIENT COMMENT** MISC XX SCH (21:00)
[2020-07-19] MEDS: LevoFLOXacin IV 750 MG in IV 1 EA IV SCH (22:07)
[2020-07-20] VITALS (19 sets, daily range): BP systolic 99–122; BP diastolic 52–64; O2SAT 94
[2020-07-20] MEDS: NS 1,000 ML IV SCH ×2 (01:19→12:33)
[2020-07-20 05:24] LABS: HEMATOCRIT 40.3 % (42.0-52.0); LYMPH # 1.4 10^3/uL (1.5-5.0); LYMPH % 28.2 % (24.0-44.0); MEAN CORPUSCULAR HEMOGLOBIN 28.1 pg (27.0-33.0); MEAN CORPUSCULAR HGB CONC 32.3 g/dl (32.0-36.5); MEAN CORPUSCULAR VOLUME 87.2 fl (80.0-96.0); MONO # 0.2 10^3/uL (0.0-0.8); MONO % 4.1 % (0.0-5.0); NEUTROPHILS # 3.3 10^3/uL (1.5-8.5); NEUTROPHILS % 67.5 % (36.0-66.0); PLATELET COUNT, AUTOMATED 126 10^3/uL (150-450); RED BLOOD COUNT 4.62 10^6/uL (4.30-6.10); WHITE BLOOD COUNT 4.8 10^3/uL (4.0-10.0)
[2020-07-20] MEDS: oxyCODONE 5MG TAB PO PRN (05:31)
[2020-07-20 05:56] LABS: ALT/SGPT 139 U/L (12-78); BILIRUBIN,TOTAL 0.6 MG/DL (0.2-1.0); BLOOD UREA NITROGEN 9 MG/DL (7-18); C REACTIVE PROTEIN QUANTITATIV 5.13 MG/DL (0.00-0.30); CALCIUM LEVEL 8.2 MG/DL (8.5-10.1); CARBON DIOXIDE LEVEL 28 MEQ/L (21-32); CHLORIDE LEVEL 104 MEQ/L (98-107); CREATININE FOR GFR 0.76 MG/DL (0.70-1.30); FERRITIN 1019 NG/ML (26-388); GLOMERULAR FILTRATION RATE > 60.0 (>60); GLUCOSE, FASTING 179 MG/DL (70-100); POTASSIUM SERUM 3.9 MEQ/L (3.5-5.1); SODIUM LEVEL 136 MEQ/L (136-145); TOTAL PROTEIN 6.2 GM/DL (6.4-8.2)
[2020-07-20 05:58] LABS: ERYTHROCYTE SEDIMENTATION RATE 41 mm/hr (0-15)
[2020-07-20] MEDS: HumaLOG INSULIN (NovoLOG) PER UNIT SC SCH ×4 (07:30→20:49)
[2020-07-20] MEDS: NAPROXEN 250 MG TAB PO PRN ×2 (08:47→18:25)
[2020-07-20] MEDS: ENOXAPARIN 40MG/0.4ML SYRINGE (J1650 PER 10MG) SC SCH (08:48)
[2020-07-20] MEDS: LIDOCAINE 5% (LIDODERM) PATCH TD SCH (08:48)
[2020-07-20] MEDS: oxyCODONE 10 MG CR TAB PO SCH ×2 (09:00→20:38)
[2020-07-20] MEDS ORDERED: MORPHINE 2 MG/ML 1ML VIAL (J2270) IV STA (09:10)
[2020-07-20 10:51] LABS: HEPATITIS B SURFACE ANTIBODY NEGATIVE (POSITIVE)
--- NOTE | 2020-07-20 11:13 | REP ---
INDICATION: Hypoxia COMPARISON: 07/18/2020 TECHNIQUE: Portable AP view of the chest FINDINGS: Perihilar and lower lobe infiltrates with suspected small pleural effusions have increased from prior examination. No pneumothorax. Mediastinum and cardiac silhouette are stable and cardiomegaly is again suggested. No pneumothorax. Skeletal structures intact. IMPRESSION: Increasing perihilar and lower lobe infiltrates with possible small pleural effusions. <Electronically signed by Jordi Noriega > 07/20/20 1108
[2020-07-20 11:42] LABS: HEPATITIS B SURFACE ANTIGEN NEGATIVE (NEGATIVE)
[2020-07-20 11:57] LABS: HEPATITIS A ANTIBODY IGM NEGATIVE (NEGATIVE); HEPATITIS B CORE ANTIBODY IGM NEGATIVE (NEGATIVE); HEPATITIS C VIRUS ABY INDEX 0.1 INDEX (<0.8)
--- NOTE | 2020-07-20 11:59 | IPNPDOC ---
Subjective Date Seen The patient was seen on 07/20/20. Subjective Chief Complaint/HPI Mr. Montilla is a 25-year-old male with type 2 diabetes mellitus who presents with worsening shortness of breath and cough since July 11. Overnight, he was put on Vapotherm. This morning, he had maxed out on Vapotherm. He still has sharp pleuritic chest pain and dyspnea. He has trouble taking deep breathes. Spoke with pulmonology. He may be splinting which is causing him to be hypoxic. Will try to control the pain better. Gave 2mg IV morphine now. The scheduled oxycodone CR BID. Objective Physical Examination General Exam: Positive: Alert, Cooperative, Mild Distress (Lays still) Eye Exam: Positive: EOMI; Negative: Sclera icteric Neck Exam: Positive: Supple Chest Exam: Positive: Rhonchi, Diminished Heart Exam: Positive: Rate Normal, Regular Rhythm Abdomen Exam: Positive: Normal bowel sounds, Soft, Other (obese) Extremity Exam: Negative: Edema Assessment /Plan Assessment Mr. Montilla is a 25-year-old male with type 2 diabetes mellitus with acute hypoxic respiratory failure secondary to pneumonia and splinting. He is also here with transaminitis. Discuss case with home/crit care, Dr. Ortega. We'll work up autoimmune hepatitis. Also currently pending hepatitis panel. Otherwise continue with levofloxacin. Would not need Augmentin at this time. His acute hypoxic respiratory failure is thought to be secondary to splinting. He is not taking deep breaths as seen in CXR and CT. Will try to control the pain better with scheduled and PRN oxycodone. Cautious with Tylenol due to liver damage. Cautious with NSAIDs as it will be needed for fevers Plan/VTE VTE Prophylaxis Ordered?: Yes Plan 1. Acute hypoxic respiratory failure Secondary to pneumonia and splinting Pulmonary following, respirations appreciated Patient currently on Vapotherm -Increased pain control regimen. Oxycodone CR 10 mg BID and Oxycodone IR 5mg q6h PRN. 2. Pneumonia On levofloxacin Continues to have fevers Pending atypical pneumonia workup 3. Questionable COVID status Patient reports no COVID exposures He does report loss of taste Patient not a candidate for remdesivir due to transaminitis 2 negative COVID tests 4. Strep pharyngitis Patient was in the ED on July 11 and for fever Test positive for strep pharyngitis Was on Augmentin, but now on levofloxacin 5. Transaminitis Elevated AST and ALT Possible EBV. Pending EBV serologies Autoimmune hepatitis initiated Pending hepatitis panel Cautious with Tylenol Acetaminophen level and salicylate level low 6. Diabetes mellitus Sliding scale insulin Carbohydrate consistent diet 7. DVT prophylaxis Lovenox VS, I&O, 24H, Fishbone Vital Signs/I&O Vital Signs Date Time Temp Pulse Resp B/P (MAP) Pulse Ox O2 Delivery O2 Flow Rate FiO2 07/20/20 10:51 28 07/20/20 08:34 101.1 80 122/64 (83) 100 High Flow Mask 07/20/20 06:30 15.0 07/20/20 05:36 50 I&O- Last 24 Hours up to 6 AM 07/20/20 06:00 Intake Total 1416 ml Output Total 900 ml Balance 516 ml Laboratory Data 24H LABS Laboratory Tests 2 07/19/20 18:12: Bedside Glucose (Misc Panel) 155H 07/19/20 18:14: Methicillin-Resist S.aureus DNA PCR NOT DETECTED 07/19/20 21:56: Bedside Glucose (Misc Panel) 201H 07/20/20 04:47: Immature Granulocyte % (Auto) 0.2, Neutrophils (%) (Auto) 67.5H, Lymphocytes (%) (Auto) 28.2, Monocytes (%) (Auto) 4.1, Eosinophils (%) (Auto) 0.0, Basophils (%) (Auto) 0.0, Neutrophils # (Auto) 3.3, Lymphocytes # (Auto) 1.4L, Monocytes # (Auto) 0.2, Eosinophils # (Auto) 0.0, Basophils # (Auto) 0.0, Nucleated Red Blood Cells % (auto) 0.0, Erythrocyte Sedimentation Rate 41H, D-Dimer, Quant itative 877.68H, Anion Gap 4L, Glomerular Filtration Rate > 60.0, Calcium Level 8.2L, Ferritin 1019H, Total Bilirubin 0.6, Aspartate Amino Transf (AST/SGOT) 105H, Alanine Aminotransferase (ALT/SGPT) 139H, Alkaline Phosphatase 56, C- Reactive Protein, Quantitative 5.13H, Total Protein 6.2L, Albumin 3.0L, Albumin/Globulin Ratio 0.9 CBC/BMP Laboratory Tests 07/20/20 04:47 Microbiology Microbiology 07/18/20 Respiratory Virus Panel (PCR) ([facility]) - Final, Complete 07/18/20 Blood Culture - Preliminary, Resulted No growth after 24 hours . All specim... NIRALI SANCHEZ DO Jul 20, 2020 11:59
[2020-07-20 12:23] LABS: NT-PRO BNP 19 PG/ML (<125)
--- NOTE | 2020-07-20 15:54 | IPN ---
PULMONARY PROGRESS NOTE DATE: 07/20/2020 SUBJECTIVE: The patient was seen and examined this morning during bedside rounds. Overnight, the patient had episodes of desaturation and was placed on Vapotherm this morning. On max settings at 40 liters a minute and 100% FIO2 the patient is still satting only 87%. He continues to complain of pain in the right upper quadrant radiating to the right side and back. He is getting pain medication, however and he states when he receives the pain medication his pain will go down to 0 although this lasts for only a few hours. Currently, he rates his pain on a scale of 7 out of 10. The patient does have an incentive spirometer at bedside, however, he is still not using it much. He states he tries to but then he coughs and so he does not continue using it. He also continues to have fever overnight with a T max of 101 this morning. PHYSICAL EXAMINATION: VITAL SIGNS: Temperature is 98.9, T max is 101.1, pulse is 92, respirations are 22, blood pressure is 106/59, O2 sat 90% on Vapotherm at 100% FIO2. INPUT AND OUTPUT: In: 776, out 950. GENERAL: The patient is an overweight male, he is sitting in the bed and appears to be taking shallow breaths and is mildly tachypneic. He is not using any accessory muscles for respiration. HEENT: Normocephalic, atraumatic. Pupils react to light bilaterally. There is moist mucous membranes noted. NECK: Supple. Trachea is midline. There is a salmon colored morbilliform rash on the right upper neck and chest region although some of it appears scaly now. CARDIAC: Regular rate and rhythm. Normal S1 and S2. No murmurs appreciated. RESPIRATORY: Diminished breath sounds bilaterally with crackles at the bases. No wheezing noted. ABDOMEN: Obese, soft, and nondistended. There is right upper quadrant tenderness and hepatomegaly. EXTREMITIES: There is no lower extremity noted bilaterally. LABORATORY DATA: WBC is 4.8, hemoglobin is 13.0, platelets are 126,000. Chemistries shows a sodium of 136, potassium is 3.9, chloride is 104, bicarbonate is 28, BUN is 9, creatinine is 0.76, glucose 179. Jeanette is 1019. AST 105, ALT 139. CKP 114. Albumin 2.0. CRP is 5.13. Procalcitonin is 0.13. D/dimer is 87.68. MRSA screen negative. IMAGING: Lower extremity Duplex is negative for DVT. Chest x-ray this morning shows increased perihilar opacities as well as bilateral lower lobe infiltrates. There is also suggestive of possible small bilateral pleural effusions. ASSESSMENT AND PLAN: Mr. Montilla is a 25-year-old male with a past medical history of diabetes and GERD who presents with complaints of fever, shortness of breath and right upper quadrant pain. Patient has had multiple ED visits which included multiple COVID-19 and viral panel swabs which were all negative. At one of his visits he was noted to be positive for Strep and diagnosed with Strep pharyngitis and given Augmentin as an outpatient which he was taking. The patient however had worsening dyspnea and persistent fevers as well as right upper quadrant pain and presented to the Emergency Department for further evaluation. Acute hypoxic respiratory failure and fever. Patient with sepsis likely in the setting of pneumonia based on his imaging. His initial CT did show evidence of bilateral atelectasis and consolidation. It was a CT angiogram, however while technically challenging, there did not appear to be any large PE. Patient continues to be febrile and with his initial symptoms there was suspicion for a possible viral illness, perhaps EBV particularly given his splenomegaly that was also noted on imaging and with his rash. The patient continues to have significant hypoxia. Some of this is due to splinting given his pain and with his rapid shallow breathing. We did discuss using incentive spirometer and pain control, however he has been resistant with using incentive spirometer as it does make him cough which he states causes him to have more pain. When he does take his pain medications, he states his pain will go down to a 0. As the patient is unable to use incentive spirometer and given his continued hypoxia despite being on Vapotherm will start him on BiPAP. He was initially on settings of 18/8 but increased to 20/10 with a respiratory rate of 10 and 100% FIO2. Will continue following up his serology testing including EBV as well as atypical pneumonia testing. Will continue Levaquin for broad spectrum antibiotic and continue to monitor and trend his procalcitonin and perhaps broadening of needed. His MRSA screen was negative and he is from the home community. Patient has an echocardiogram with a bubble study ordered, the results are still pending. Patient had hepatitis panel ordered as well given his transaminitis. Some of this has been chronic and may be in the setting of his hepatic steatosis. He does also have testing for autoimmune hepatitis, that is still pending as well as for autoimmune disease which may be contributing particularly given his pleuritic chest pain. Patient's chest x-ray does show some worsening opacities as well as possible small pleural effusions. Will discontinue his IV fluids and will add a BNP. His blood pressure is borderline and given his sepsis would hold off on diuretics at this time but would attempt to keep patient net even, if not a little negative. If patient has persistent fevers, would consider possible ID consult for further evaluation. DVT prophylaxis, Lovenox weight based. Code Status: Full code. MTDD
[2020-07-20] MEDS: LevoFLOXacin IV 750 MG in IV 1 EA IV SCH (20:36)
[2020-07-20] MEDS: **NOTE PATIENT COMMENT** MISC XX SCH (20:38)
[2020-07-20] MEDS: ACETAMINOPHEN TAB 650MG DOSE (2X325MG) PO PRN (21:47)
[2020-07-21] VITALS (23 sets, daily range): BP systolic 86–121; BP diastolic 49–67; O2SAT 91
[2020-07-21 04:19] LABS: BASO % 0.2 % (0.0-1.0); HEMATOCRIT 37.5 % (42.0-52.0); HEMOGLOBIN 12.3 g/dl (13.5-17.5); LYMPH # 1.6 10^3/uL (1.5-5.0); LYMPH % 26.8 % (24.0-44.0); MEAN CORPUSCULAR HEMOGLOBIN 28.3 pg (27.0-33.0); MEAN CORPUSCULAR HGB CONC 32.8 g/dl (32.0-36.5); MEAN CORPUSCULAR VOLUME 86.2 fl (80.0-96.0); MONO # 0.3 10^3/uL (0.0-0.8); MONO % 4.1 % (0.0-5.0); NEUTROPHILS # 4.2 10^3/uL (1.5-8.5); NEUTROPHILS % 68.6 % (36.0-66.0); PLATELET COUNT, AUTOMATED 139 10^3/uL (150-450); RED BLOOD COUNT 4.35 10^6/uL (4.30-6.10); WHITE BLOOD COUNT 6.1 10^3/uL (4.0-10.0)
[2020-07-21 04:55] LABS: ALBUMIN 2.8 GM/DL (3.2-5.2); ALT/SGPT 107 U/L (12-78); BILIRUBIN,TOTAL 0.7 MG/DL (0.2-1.0); BLOOD UREA NITROGEN 14 MG/DL (7-18); CALCIUM LEVEL 7.9 MG/DL (8.5-10.1); CARBON DIOXIDE LEVEL 27 MEQ/L (21-32); CHLORIDE LEVEL 107 MEQ/L (98-107); CREATININE FOR GFR 0.74 MG/DL (0.70-1.30); GLOMERULAR FILTRATION RATE > 60.0 (>60); GLUCOSE, FASTING 151 MG/DL (70-100); POTASSIUM SERUM 3.9 MEQ/L (3.5-5.1); SODIUM LEVEL 141 MEQ/L (136-145); TOTAL PROTEIN 5.9 GM/DL (6.4-8.2)
[2020-07-21 05:10] LABS: HEPATITIS B CORE ANTIBODY IGG Negative (Negative)
--- NOTE | 2020-07-21 07:06 | ECHO ---
DATE OF PROCEDURE: 07/20/2020 Age: 25 Gender: Male Height: 173 cm Weight: 99 kg REFERRING PHYSICIAN: Kel Mills DO INDICATION: Cardiomegaly, hypoxia. MEASUREMENTS: 2D Measurements: Left ventricle diastole 5.4 cm Intraventricular septum 0.9 cm Posterior wall 0.92 cm Aortic root 3.2 cm Left atrium 3.2 cm Left atrial volume index 18 cm Inferior vena cava 1.7 cm Doppler Measurements: No aortic stenosis No aortic regurgitation No mitral stenosis No mitral regurgitation No tricuspid regurgitation No pulmonic regurgitation Aortic valve velocity 142 cm/s LVOT velocity 110 cm/s LVOT VTI 18.2 cm Mitral E velocity 82.0 cm/s Mitral A velocity 51.4 cm/s Mitral deceleration time 254 msec Pulmonary artery acceleration time 140 msec (normal) MITRAL ANNULAR TISSUE DOPPLER E prime septal 11.1 cm/s, E prime lateral 11.7 cm/s DESCRIPTION: Rhythm was sinus. Image quality was mostly good. This was a 2D, M- mode, color flow Doppler, and pulsed wave Doppler examination including mitral annular tissue Doppler. CONCLUSIONS: 1. Normal left ventricle internal dimensions and wall thickness. Normal regional LV wall motion and wall thickening. Normal LV systolic function. LVEF 65% by visual estimate. Normal LV diastolic function. 2. Suggestive of normal pulmonary artery systolic pressure. Normal right ventricle size and systolic function. Right atrium appeared normal in size. 3. Tiny amount of pericardial effusion seen over the posterior wall of the left ventricle. No diastolic chamber collapse. Tiny amount of left pleural effusion adjacent to the pericardial effusion seen posteriorly. 4. Bubble study with saline bubble contrast was negative for detection of right heart to left heart intracardiac shunting. 5. Otherwise normal appearing echocardiogram Doppler findings. [facility]
[2020-07-21] MEDS: HumaLOG INSULIN (NovoLOG) PER UNIT SC SCH ×4 (07:30→20:58)
[2020-07-21] MEDS: LIDOCAINE 5% (LIDODERM) PATCH TD SCH (09:00)
[2020-07-21] MEDS: oxyCODONE 10 MG CR TAB PO SCH ×2 (09:00→20:04)
[2020-07-21] MEDS: ENOXAPARIN 40MG/0.4ML SYRINGE (J1650 PER 10MG) SC SCH (09:05)
[2020-07-21] MEDS ORDERED: KETOROLAC 30 MG/ML 1ML VIAL IV PRN (12:00)
[2020-07-21] MEDS ORDERED: KETOROLAC 30 MG/ML 1ML VIAL As Ordered ONE (12:22)
--- NOTE | 2020-07-21 12:57 | IPNPDOC ---
Text Note Date of Service The patient was seen on 07/21/20. NOTE Subjective: Patient continues to have respiratory distress, his breathing via BiPAP, continues to have substernal chest pain. Objective: GENERAL APPEARANCE: NAD HEENT: no scleral icterus, no JVD, EOMI CARDIOVASCULAR: S1S2 LUNGS: Diminished lung sounds bilaterally ABDOMEN: soft & not tender w palpitation MUSCULOSKELETAL: no cyanosis, no swelling INTEGUMENT: no generalized palor NEUROLOGICAL: cranial nerve function from 2-12 intact intact, follows commands, speech not dysarthric Assessment /Plan Assessment Mr. Montilla is a 25-year-old male with type 2 diabetes mellitus with acute hypoxic respiratory failure secondary to pneumonia and splinting. He is also here with transaminitis. Discuss case with home/crit care, Dr. Ortega. We'll work up autoimmune hepatitis. Also currently pending hepatitis panel. Otherwise continue with levofloxacin. Would not need Augmentin at this time. His acute hypoxic respiratory failure is thought to be secondary to splinting. He is not taking deep breaths as seen in CXR and CT. Will try to control the pain better with scheduled and PRN oxycodone. Cautious with Tylenol due to liver damage. Cautious with NSAIDs as it will be needed for fevers Plan 1. Acute hypoxic respiratory failure Most likely secondary to pneumonia Continue BiPAP Pain management 2. Pneumonia Continue levofloxacin Patient had low-grade fever overnight Pending atypical pneumonia workup CTA on 11/15/20 showed scattered segmental and subsegmental atelectasis and consolidation noted bilaterally COVID test negative Procalcitonin 0.13 on 07/19/20 3. Questionable COVID status Patient reports no COVID exposures He does report loss of taste Multiple COVID tests negative 4. Strep pharyngitis Patient was in the ED on July 11 and for fever Test positive for strep pharyngitis Was on Augmentin, but now on levofloxacin Monoscreen negative 5. Transaminitis Elevated AST and ALT Possible EBV. Pending EBV serologies Autoimmune hepatitis initiated Pending hepatitis panel Improved on 07/21/20. Could be secondary to hepatic steatosis is secondary to obesity 6. Diabetes mellitus Glucose level under control Sliding scale insulin Carbohydrate consistent diet VS,Fishbone, I+O VS, Fishbone, I+O Laboratory Tests 07/21/20 04:13 Vital Signs Date Time Temp Pulse Resp B/P (MAP) Pulse Ox O2 Delivery O2 Flow Rate FiO2 07/21/20 10:05 27 95 NIPPV (BIPAP/CPAP) 100 07/21/20 09:00 85 106/59 (75) 07/21/20 08:00 99.1 07/20/20 12:00 40.0 I&O- Last 24 Hours up to 6 AM 07/21/20 06:00 Intake Total 870 ml Output Total 600 ml Balance 270 ml AL NORTH DO Jul 21, 2020 12:57
[2020-07-21 13:09] LABS: EBV VIRAL CAPSID AG IgG 96.6 U/mL (0.0-17.9); EBV VIRAL CAPSID AG IgM <36.0 U/mL (0.0-35.9)
--- NOTE | 2020-07-21 16:14 | CCN ---
CRITICAL CARE NOTE DATE: 07/21/2020 Patient is seen and examined this morning during bedside rounds. Patient has remained on BiPAP and does appear to be saturating better today than previously. He is still on 10% FiO2 on the BiPAP. Patient continues to report significant pain and this morning was refusing to take his oral medications. He was ordered for a Lidoderm patch, which he was refusing to turn for the patch to be placed on his side. With conversation and minimal movement, patient would start coughing and would have significant coughing fits. He therefore has not been mobile in the bed and not even to the point of sitting up at the edge of the bed, even with assistance. He did have a fever overnight. PHYSICAL EXAMINATION: VITAL SIGNS: 98.2, maximum temperature 101.2, pulse 78, respirations 23, blood pressure 99/54, oxygen saturation 92%-97% on 100% FiO2 on BiPAP. Intake 1.8, output 1 liter, net positive 760 mL. GENERAL: Patient is an overweight male. Is sitting in bed and is tachypneic but does not appear to be using any accessory muscles for respiration. He is taking shallow breaths still. HEENT: Normocephalic, atraumatic. Pupils are reactive to light bilaterally. There are mucous membranes; however, they appear somewhat dry on the BiPAP. NECK: Supple. Trachea is midline. There is a scaly, salmon-colored morbilliform rash in his upper neck and chest region. CARDIAC: Regular rate and rhythm. Normal S1, S2. Somewhat difficult to auscultate but no murmurs appreciated. RESPIRATORY: Diminished breath sounds bilaterally with crackles at the bases. No wheezing or rhonchi noted. ABDOMEN: Obese, soft, and nondistended. There is a right upper quadrant tenderness and hepatomegaly. EXTREMITIES: There is no lower extremity edema noted bilaterally. LABORATORY DATA: WBC 6.1, hemoglobin 12.3, platelets 139. Chemistry: Sodium 141, potassium 3.9, chloride 107, bicarbonate 27, BUN 14, creatinine 0.74, glucose 171, calcium 7.9. AST trending down to 84, ALT 107, alkaline phosphatase 53. BNP was 19. Albumin is 2.8. Procalcitonin was 0.13. Hepatitis panel negative. ASSESSMENT AND PLAN: Mr. Montilla is a 25-year-old male with a past medical history of diabetes and gastroesophageal reflux disease (GERD), who presented with fevers, shortness of breath, and right upper quadrant pain. Patient has had multiple emergency department (ED) visits, which included multiple COVID-19 and viral panel swabs, which were all negative. He denies any exposure history to persons with COVID-19, and he lives alone. Patient was diagnosed at one of his ED visits with streptococcal pharyngitis with a positive throat swab. He was given Augmentin as an outpatient, which he had taken for a few days, but as he had persistent fevers and worsening shortness of breath as well as right upper quadrant pain, he presented to the ED for further evaluation. 1. Acute hypoxemic respiratory failure with sepsis and fever, likely in the setting of pneumonia based on his imaging. Patient's hypoxia is also contributed in part to atelectasis and splinting given his pain and his shallow breathing. He has been noncompliant with incentive spirometer, and he was therefore placed on BiPAP to help with his atelectasis. With the BiPAP he does have improvement in his oxygenation, but he is also not mobile and is refusing to sit up out of bed to the edge of the bed, even with assistance. - Will continue patient on BiPAP with his current settings of 20/10, respiratory rate of 12, and will continue to wean down his FiO2 as tolerated to maintain oxygen saturation above 90%. - Will followup his serology testing, including [place] virus (EBV) as well as for atypical pneumonia. He does continue to have fevers, and he is on Levaquin currently for broad-spectrum antibiotics. His procalcitonin was 0.13, and his Methicillin-resistant Staphylococcus aureus (MRSA) screen was negative, and as he is from the home community would continue with just Levaquin now but can consider potential infectious disease (ID) consult given his persistent fevers. - Patient's echocardiogram with bubble study was negative for any shunt physiology, and he did have a normal ejection fraction (EF). There is evidence of a trace pericardial effusion as well as small pleural effusion. His brain natriuretic peptide (BNP) was normal and would hold off on diuresis. - Will followup the results of his antinuclear antibody (IBRAHIMA) as well as his autoimmune hepatitis panel. His transaminitis does appear to be improving. - Will continue with pain control and will give him IV morphine, as he is refusing oral medications, as well as IV Toradol. We did discuss with the patient the importance of mobilization to help with his atelectasis and hypoxia. 2. Deep venous thrombosis (DVT) prophylaxis. Lovenox. 3. Code status: Full code. TOTAL CRITICAL CARE TIME SPENT, NOT INCLUDING PROCEDURES: Approximately 30 minutes. MTDD
[2020-07-21] MEDS: MORPHINE 2 MG/ML 1ML VIAL (J2270) IV PRN (17:27)
[2020-07-21] MEDS: LevoFLOXacin IV 750 MG in IV 1 EA IV SCH (20:02)
[2020-07-21] MEDS: ACETAMINOPHEN TAB 650MG DOSE (2X325MG) PO PRN (20:04)
[2020-07-21] MEDS: **NOTE PATIENT COMMENT** MISC XX SCH (21:00)
[2020-07-22] VITALS (18 sets, daily range): BP systolic 99–125; BP diastolic 55–72; O2SAT 92
[2020-07-22 04:41] LABS: BASO % 0.1 % (0.0-1.0); HEMATOCRIT 38.6 % (42.0-52.0); HEMOGLOBIN 12.2 g/dl (13.5-17.5); LYMPH # 1.3 10^3/uL (1.5-5.0); LYMPH % 18.3 % (24.0-44.0); MEAN CORPUSCULAR HEMOGLOBIN 27.2 pg (27.0-33.0); MEAN CORPUSCULAR HGB CONC 31.6 g/dl (32.0-36.5); MEAN CORPUSCULAR VOLUME 86.2 fl (80.0-96.0); MONO # 0.4 10^3/uL (0.0-0.8); MONO % 5.8 % (0.0-5.0); NEUTROPHILS # 5.2 10^3/uL (1.5-8.5); NEUTROPHILS % 75.2 % (36.0-66.0); PLATELET COUNT, AUTOMATED 180 10^3/uL (150-450); RED BLOOD COUNT 4.48 10^6/uL (4.30-6.10); WHITE BLOOD COUNT 6.9 10^3/uL (4.0-10.0)
[2020-07-22 05:09] LABS: ALBUMIN 2.7 GM/DL (3.2-5.2); ALT/SGPT 84 U/L (12-78); BILIRUBIN,TOTAL 0.9 MG/DL (0.2-1.0); BLOOD UREA NITROGEN 15 MG/DL (7-18); CARBON DIOXIDE LEVEL 27 MEQ/L (21-32); CHLORIDE LEVEL 109 MEQ/L (98-107); CREATININE FOR GFR 0.66 MG/DL (0.70-1.30); GLOMERULAR FILTRATION RATE > 60.0 (>60); GLUCOSE, FASTING 135 MG/DL (70-100); SODIUM LEVEL 142 MEQ/L (136-145); TOTAL PROTEIN 6.1 GM/DL (6.4-8.2)
[2020-07-22] MEDS: HumaLOG INSULIN (NovoLOG) PER UNIT SC SCH ×4 (07:30→21:00)
[2020-07-22] MEDS: LIDOCAINE 5% (LIDODERM) PATCH TD SCH (09:00)
[2020-07-22] MEDS: ENOXAPARIN 40MG/0.4ML SYRINGE (J1650 PER 10MG) SC SCH (09:01)
[2020-07-22] MEDS: oxyCODONE 10 MG CR TAB PO SCH ×2 (09:01→21:28)
[2020-07-22 10:31] LABS: ERYTHROCYTE SEDIMENTATION RATE 59 mm/hr (0-15)
[2020-07-22] MEDS: dexameTHASONE 20MG/5ML VIAL (J1100 PER 1MG) IV SCH (11:15)
--- NOTE | 2020-07-22 13:31 | IPNPDOC ---
Text Note Date of Service The patient was seen on 07/22/20. NOTE Subjective: Patient continues to have respiratory distress, his breathing via BiPAP, but he stated that he feels better today Objective: GENERAL APPEARANCE: NAD HEENT: no scleral icterus, no JVD, EOMI CARDIOVASCULAR: S1S2 LUNGS: Diminished lung sounds bilaterally ABDOMEN: soft & not tender w palpitation MUSCULOSKELETAL: no cyanosis, no swelling INTEGUMENT: no generalized palor NEUROLOGICAL: cranial nerve function from 2-12 intact intact, follows commands, speech not dysarthric Assessment /Plan Assessment Mr. Montilla is a 25-year-old male with type 2 diabetes mellitus with acute hypoxic respiratory failure secondary to pneumonia and splinting. He is also here with transaminitis. Discuss case with home/crit care, Dr. Ortega. We'll work up autoimmune hepatitis. Also currently pending hepatitis panel. Otherwise continue with levofloxacin. Would not need Augmentin at this time. His acute hypoxic respiratory failure is thought to be secondary to splinting. He is not taking deep breaths as seen in CXR and CT. Will try to control the pain better with scheduled and PRN oxycodone. Cautious with Tylenol due to liver damage. Cautious with NSAIDs as it will be needed for fevers Plan 1. Acute hypoxic respiratory failure Most likely secondary to pneumonia Continue BiPAP Pain management 2. Pneumonia Community acquired, bilateral Continue levofloxacin Patient had low-grade fever overnight Pending atypical pneumonia workup CTA on 11/15/20 showed scattered segmental and subsegmental atelectasis and consolidation noted bilaterally COVID test negative Procalcitonin 0.13 on 07/19/20 Dr. Hsu recommended to add doxycycline and start steroids 3. Questionable COVID status Patient reports no COVID exposures He does report loss of taste Multiple COVID tests negative 4. Strep pharyngitis Patient was in the ED on July 11 and for fever Test positive for strep pharyngitis Was on Augmentin, but now on levofloxacin and doxycycline Monoscreen negative EBV IgG positive, IgM negative 5. Transaminitis Elevated AST and ALT Possible EBV. Pending EBV serologies Autoimmune hepatitis initiated hepatitis panel negative Improved on 07/21/20. Could be secondary to hepatic steatosis is secondary to obesity 6. Diabetes mellitus Glucose level under control Sliding scale insulin Carbohydrate consistent diet VS,Fishbone, I+O VS, Fishbone, I+O Laboratory Tests 07/22/20 04:34 Vital Signs Date Time Temp Pulse Resp B/P (MAP) Pulse Ox O2 Delivery O2 Flow Rate FiO2 07/22/20 13:00 73 116/59 (78) 97 NIPPV (BIPAP/CPAP) 80 07/22/20 12:00 99.6 22 07/20/20 12:00 40.0 I&O- Last 24 Hours up to 6 AM 07/22/20 06:00 Intake Total 360 ml Output Total 895 ml Balance -535 ml AL NORTH DO Jul 22, 2020 13:31
[2020-07-22] MEDS: DOXYCYCLINE HYCLATE 100 MG in D5W MINI-BAG PLUS 100 ML IV SCH (13:38)
--- NOTE | 2020-07-22 20:32 | CCN ---
CRITICAL CARE NOTE DATE: 07/22/2020 SUBJECTIVE: The patient was seen and examined this morning during bedside rounds. The patient remains on BiPAP, but he does appear to be saturating better than he was previously. He was able to be weaned down to 80% FiO2 on the BiPAP. He does report his pain control has improved today and that his breathing is slightly improved. The patient was attempted to be weaned off of BiPAP to the Vapotherm, which he did tolerate briefly, but was quickly placed back on the BiPAP. He did have a fever overnight with a T-max of 102. OBJECTIVE: VITAL SIGNS: T-current 98.7, pulse 74, respirations 20, blood pressure 106/62, O2 saturation 93% on 80% FiO2. INTAKE AND OUTPUT: In 310, out 775. GENERAL: The patient is an overweight male who is lying in bed and appears to be tachypneic with shallow breathing, but does not appear to be using any accessory muscles for respiration. HEENT: Normocephalic, atraumatic. Pupils reactive to light bilaterally. Mucous membranes appeared somewhat dry on the BiPAP. NECK: Supple. Trachea is midline. There is a scaly salmon-colored morbilliform rash in his upper neck and chest regions. CARDIAC: Regular rate and rhythm. Normal S1, S2. Unable to appreciate any murmurs. RESPIRATORY: Diminished breath sounds bilaterally with no wheezing or rhonchi noted. ABDOMEN: Obese, soft, and nondistended. There is mild right upper quadrant tenderness, which is improved. EXTREMITIES: There is no lower extremity edema noted bilaterally. LABORATORY DATA: WBC 6.9, hemoglobin 12.2, platelets 180,000. Chemistries: Sodium 142, potassium 4.0, chloride 109, bicarb 27, BUN 15, creatinine 0.66, glucose 135, calcium 8.0, total bilirubin 0.9. AST and ALT trending down to 58 and 89 with alk phos 57. CRP 10.4. Albumin 2.7. EBV IgG positive. IgM negative. EBV nuclear antigen antibody positive. EBV DNA PCR is pending. ASSESSMENT/PLAN: Mr. Montilla is a 25-year-old male with a past medical history of diabetes and gastroesophageal reflux disease (GERD) who presented with fever, shortness of breath, and right upper quadrant pain. The patient has had multiple ED visits leading up to his admission with multiple negative viral panel swabs including COVID-19. He denies any exposure history to persons with known COVID-19. He did have a previous positive throat swab for streptococcal pharyngitis and he was receiving Augmentin as an outpatient. Given his persistent fevers, as well as new right upper quadrant pain and worsening shortness of breath, he had presented to the ED and was admitted for acute hypoxemic respiratory failure. Acute hypoxemic respiratory failure in the setting of pneumonia, as well as with likely significant atelectasis and splinting given his pain and shallow breathing. - With BiPAP, the patient's oxygenation has improved; but he does continue to need to be out of bed and with either awake proning or lateral decubitus position. When he is sitting up and in the lateral decubitus position, his O2 sats do improve. - The patient is on Levaquin for broad-spectrum antibiotics. He was also started on doxycycline for more atypical coverage. His Nan-Ratliff virus (EBV) testing showed possible prior EBV infection, but the PCR is still pending. He does continue to have persistent fevers and infectious disease (ID) has been consulted for further recommendations. - The patient will be started on dexamethasone for severe community-acquired pneumonia. - The patient's transaminitis is improving. Some of this may have been viral in etiology initially, as well as possibly a component of fatty liver disease. He also has an autoimmune hepatitis panel, which is pending. - Continue with pain control with IV morphine and Toradol. Deep vein thrombosis (DVT) prophylaxis with Lovenox. Code status is FULL CODE. CRITICAL CARE TIME: Total critical care time spent not including procedures approximately 30 minutes. Please do not hesitate to call for any further questions or concerns.
[2020-07-22] MEDS: **NOTE PATIENT COMMENT** MISC XX SCH (21:29)
[2020-07-23] VITALS (22 sets, daily range): BP systolic 105–139; BP diastolic 57–84
[2020-07-23] MEDS: DOXYCYCLINE HYCLATE 100 MG in D5W MINI-BAG PLUS 100 ML IV SCH ×2 (01:04→12:11)
[2020-07-23 06:01] LABS: HEMOGLOBIN 12.8 g/dl (13.5-17.5); LYMPH # 1.2 10^3/uL (1.5-5.0); MEAN CORPUSCULAR HEMOGLOBIN 28.3 pg (27.0-33.0); MEAN CORPUSCULAR HGB CONC 32.8 g/dl (32.0-36.5); MEAN CORPUSCULAR VOLUME 86.1 fl (80.0-96.0); MONO # 0.5 10^3/uL (0.0-0.8); NEUTROPHILS # 5.1 10^3/uL (1.5-8.5); NEUTROPHILS % 74.7 % (36.0-66.0); PLATELET COUNT, AUTOMATED 269 10^3/uL (150-450); RED BLOOD COUNT 4.53 10^6/uL (4.30-6.10); WHITE BLOOD COUNT 6.8 10^3/uL (4.0-10.0)
[2020-07-23 06:27] LABS: ALBUMIN 2.5 GM/DL (3.2-5.2); ALT/SGPT 65 U/L (12-78); BLOOD UREA NITROGEN 16 MG/DL (7-18); CALCIUM LEVEL 8.5 MG/DL (8.5-10.1); CARBON DIOXIDE LEVEL 27 MEQ/L (21-32); CHLORIDE LEVEL 106 MEQ/L (98-107); CREATININE FOR GFR 0.87 MG/DL (0.70-1.30); GLOMERULAR FILTRATION RATE > 60.0 (>60); GLUCOSE, FASTING 192 MG/DL (70-100); POTASSIUM SERUM 5.1 MEQ/L (3.5-5.1); SODIUM LEVEL 137 MEQ/L (136-145); TOTAL PROTEIN 6.5 GM/DL (6.4-8.2)
[2020-07-23] MEDS: HumaLOG INSULIN (NovoLOG) PER UNIT SC SCH ×3 (07:30→17:40)
[2020-07-23] MEDS: LIDOCAINE 5% (LIDODERM) PATCH TD SCH (08:23)
[2020-07-23] MEDS: ENOXAPARIN 40MG/0.4ML SYRINGE (J1650 PER 10MG) SC SCH (08:23)
[2020-07-23] MEDS: oxyCODONE 10 MG CR TAB PO SCH ×2 (08:24→20:19)
[2020-07-23] MEDS: dexameTHASONE 20MG/5ML VIAL (J1100 PER 1MG) IV SCH (12:11)
--- NOTE | 2020-07-23 12:16 | IPNPDOC ---
Text Note Date of Service The patient was seen on 07/23/20. NOTE Subjective: No any acute events overnight. Patient continues to have high oxygen requirements, breathing via BiPAP Objective: GENERAL APPEARANCE: NAD HEENT: no scleral icterus, no JVD, EOMI CARDIOVASCULAR: S1S2 LUNGS: Diminished lung sounds bilaterally ABDOMEN: soft & not tender w palpitation MUSCULOSKELETAL: no cyanosis, no swelling INTEGUMENT: no generalized palor NEUROLOGICAL: cranial nerve function from 2-12 intact intact, follows commands, speech not dysarthric Assessment /Plan Assessment Mr. Montilla is a 25-year-old male with type 2 diabetes mellitus with acute h ypoxic respiratory failure secondary to pneumonia and splinting. He is also here with transaminitis. Discuss case with home/crit care, Dr. Ortega. We'll work up autoimmune hepatitis. Also currently pending hepatitis panel. Otherwise continue with levofloxacin. Would not need Augmentin at this time. His acute hypoxic respiratory failure is thought to be secondary to splinting. He is not taking deep breaths as seen in CXR and CT. Will try to control the pain better with scheduled and PRN oxycodone. Cautious with Tylenol due to liver damage. Cautious with NSAIDs as it will be needed for fevers Plan 1. Acute hypoxic respiratory failure Most likely secondary to pneumonia Continue BiPAP Pain management 2. Pneumonia Community acquired, bilateral Continue levofloxacin Patient had low-grade fever overnight Pending atypical pneumonia workup CTA on 11/15/20 showed scattered segmental and subsegmental atelectasis and consolidation noted bilaterally COVID test negative Procalcitonin 0.13 on 07/19/20 Dr. Hsu recommended to add doxycycline and start steroids 3. Questionable COVID status Patient reports no COVID exposures He does report loss of taste Multiple COVID tests negative 4. Strep pharyngitis Resolved Patient was in the ED on July 11 and for fever Test positive for strep pharyngitis Was on Augmentin, but now on levofloxacin and doxycycline Monoscreen negative EBV IgG positive, IgM negative 5. Transaminitis Elevated AST and ALT Possible EBV. Pending EBV serologies Autoimmune hepatitis initiated hepatitis panel negative Improved on 07/21/20. Could be secondary to hepatic steatosis is secondary to obesity 6. Diabetes mellitus Glucose level under control Sliding scale insulin Carbohydrate consistent diet VS,Fishbone, I+O VS, Fishbone, I+O Laboratory Tests 07/23/20 05:29 Vital Signs Date Time Temp Pulse Resp B/P (MAP) Pulse Ox O2 Delivery O2 Flow Rate FiO2 07/23/20 09:00 62 29 111/58 (75) 97 NIPPV (BIPAP/CPAP) 90 07/23/20 08:00 98.5 07/20/20 12:00 40.0 I&O- Last 24 Hours up to 6 AM 07/23/20 06:00 Intake Total 1370 ml Output Total 1075 ml Balance 295 ml AL NORTH DO Jul 23, 2020 12:16
[2020-07-23] MEDS: NS 0.45% 1,000 ML IV SCH (13:42)
[2020-07-23] MEDS: **NOTE PATIENT COMMENT** MISC XX SCH (20:17)
[2020-07-24] VITALS (23 sets, daily range): BP systolic 108–129; BP diastolic 58–74; O2SAT 89–90
[2020-07-24 00:07] LABS: ANA (HEP2) Positive (.); ANTI-MITOCHONDRIAL ANTIBODY <20.0 Units (0.0-20.0); ANTI-SMOOTH MUSCLE ANTIBODY 9 Units (0-19); EBV PCR QUAL WHOLE BLD Negative (Negative); EBV VIRAL CAPSID AG IgG 97.4 U/mL (0.0-17.9); EBV VIRAL CAPSID AG IgM <36.0 U/mL (0.0-35.9); IgG SERUM (part of Subclasses) 936 mg/dL (603-1613); IgG Subclass 1 541 mg/dL (248-810); IgG Subclass 2 227 mg/dL (130-555); IgG Subclass 3 60 mg/dL (15-102); IgG Subclass 4 27 mg/dL (2-96); LIVER-KIDNEY MICROSOMAL ABY <20.1 Units (0.0-20.0)
[2020-07-24] MEDS: HumaLOG INSULIN (NovoLOG) PER UNIT SC SCH ×4 (00:30→18:45)
[2020-07-24] MEDS: DOXYCYCLINE HYCLATE 100 MG in D5W MINI-BAG PLUS 100 ML IV SCH ×2 (00:31→12:33)
[2020-07-24] MEDS: MORPHINE 2 MG/ML 1ML VIAL (J2270) IV PRN (00:31)
[2020-07-24] MEDS: NS 0.45% 1,000 ML IV SCH ×2 (06:08→16:22)
[2020-07-24 06:35] LABS: BASO % 0.1 % (0.0-1.0); HEMATOCRIT 39.6 % (42.0-52.0); HEMOGLOBIN 13.1 g/dl (13.5-17.5); LYMPH # 1.5 10^3/uL (1.5-5.0); LYMPH % 16.2 % (24.0-44.0); MEAN CORPUSCULAR HEMOGLOBIN 28.4 pg (27.0-33.0); MEAN CORPUSCULAR HGB CONC 33.1 g/dl (32.0-36.5); MEAN CORPUSCULAR VOLUME 85.7 fl (80.0-96.0); MONO # 0.7 10^3/uL (0.0-0.8); MONO % 8.2 % (0.0-5.0); NEUTROPHILS # 6.8 10^3/uL (1.5-8.5); NEUTROPHILS % 74.7 % (36.0-66.0); PLATELET COUNT, AUTOMATED 280 10^3/uL (150-450); RED BLOOD COUNT 4.62 10^6/uL (4.30-6.10); WHITE BLOOD COUNT 9.1 10^3/uL (4.0-10.0)
[2020-07-24 06:55] LABS: C REACTIVE PROTEIN QUANTITATIV 2.66 MG/DL (0.00-0.30)
[2020-07-24 06:59] LABS: ALBUMIN 2.6 GM/DL (3.2-5.2); ALT/SGPT 62 U/L (12-78); BILIRUBIN,TOTAL 0.9 MG/DL (0.2-1.0); BLOOD UREA NITROGEN 19 MG/DL (7-18); CALCIUM LEVEL 8.3 MG/DL (8.5-10.1); CARBON DIOXIDE LEVEL 24 MEQ/L (21-32); CHLORIDE LEVEL 107 MEQ/L (98-107); CREATININE FOR GFR 0.63 MG/DL (0.70-1.30); GLOMERULAR FILTRATION RATE > 60.0 (>60); GLUCOSE, FASTING 193 MG/DL (70-100); POTASSIUM SERUM 4.2 MEQ/L (3.5-5.1); SODIUM LEVEL 139 MEQ/L (136-145); TOTAL PROTEIN 6.3 GM/DL (6.4-8.2)
[2020-07-24 08:10] LABS: HIV 1&2 SCREEN CENTAUR NEGATIVE (NEGATIVE)
[2020-07-24] MEDS: oxyCODONE 10 MG CR TAB PO SCH ×2 (08:23→21:00)
[2020-07-24] MEDS: ENOXAPARIN 40MG/0.4ML SYRINGE (J1650 PER 10MG) SC SCH (08:24)
[2020-07-24] MEDS: LIDOCAINE 5% (LIDODERM) PATCH TD SCH (08:24)
[2020-07-24] MEDS: dexameTHASONE 20MG/5ML VIAL (J1100 PER 1MG) IV SCH (12:32)
--- NOTE | 2020-07-24 12:34 | IPNPDOC ---
Text Note Date of Service The patient was seen on 07/24/20. NOTE Subjective: No any acute events overnight. Patient denied fever, chills, chest pain Patient continues to have high oxygen requirements, breathing via BiPAP Objective: GENERAL APPEARANCE: NAD HEENT: no scleral icterus, no JVD, EOMI CARDIOVASCULAR: S1S2 LUNGS: Diminished lung sounds bilaterally ABDOMEN: soft & not tender w palpitation MUSCULOSKELETAL: no cyanosis, no swelling INTEGUMENT: no generalized palor NEUROLOGICAL: cranial nerve function from 2-12 intact intact, follows commands, speech not dysarthric Assessment /Plan Assessment Mr. Montilla is a 25-year-old male with type 2 diabetes mellitus with acute hypoxic respiratory failure secondary to pneumonia and splinting. He is also here with transaminitis. Discuss case with home/crit care, Dr. Ortega. We'll work up autoimmune hepatitis. Also currently pending hepatitis panel. Otherwise continue with levofloxacin. Would not need Augmentin at this time. His acute hypoxic respiratory failure is thought to be secondary to splinting. He is not taking deep breaths as seen in CXR and CT. Will try to control the pain better with scheduled and PRN oxycodone. Cautious with Tylenol due to liver damage. Cautious with NSAIDs as it will be needed for fevers Plan 1. Acute hypoxic respiratory failure Most likely secondary to pneumonia Continue BiPAP Pain management 2. Pneumonia Community acquired, bilateral Continue levofloxacin Patient had low-grade fever overnight Pending atypical pneumonia workup CTA on 11/15/20 showed scattered segmental and subsegmental atelectasis and consolidation noted bilaterally COVID test negative Procalcitonin 0.13 on 07/19/20 Dr. Hsu recommended to add doxycycline and start steroids 3. Questionable COVID status Patient reports no COVID exposures He does report loss of taste Multiple COVID tests negative 4. Strep pharyngitis Resolved Patient was in the ED on July 11 and for fever Test positive for strep pharyngitis Was on Augmentin, but now on levofloxacin and doxycycline Monoscreen negative EBV IgG positive, IgM negative 5. Transaminitis Elevated AST and ALT Possible EBV. Pending EBV serologies Autoimmune hepatitis initiated hepatitis panel negative Improved on 07/21/20. Could be secondary to hepatic steatosis is secondary to obesity 6. Diabetes mellitus Glucose level under control Sliding scale insulin Carbohydrate consistent diet VS,Fishbone, I+O VS, Fishbone, I+O Laboratory Tests 07/24/20 05:47 Vital Signs Date Time Temp Pulse Resp B/P (MAP) Pulse Ox O2 Delivery O2 Flow Rate FiO2 07/24/20 09:00 61 27 115/68 (84) 88 NIPPV (BIPAP/CPAP) 85 07/24/20 08:00 98.7 07/23/20 15:00 40.0 l I&O- Last 24 Hours up to 6 AM 07/24/20 06:00 Intake Total 1545 ml Output Total 1100 ml Balance 445 ml AL NORTH DO Jul 24, 2020 12:34
--- NOTE | 2020-07-24 13:33 | CR ---
CONSULTATION DATE: 2020 REASON FOR CONSULTATION: I was asked to consult by Dr. Martinez and Dr. Ortega for evaluation of pneumonia with respiratory failure and persistent fever. HISTORY OF PRESENT ILLNESS: Mr. Montilla is a 25-year-old gentleman with a history of obesity and type 2 diabetes who presented to [facility] emergency room on July 11 complaining of a cough and chest wall pain. The patient had a negative COVID-19, influenza A and B and RSV. A chest x-ray portable was negative and the patient was discharged with a diagnosis of a viral illness. He came back on 07/12 with persistent fever. A stool culture was positive for group B Strep. On 07/15, he came back with a temperature of up to 103. Another flu A, B, SARS-CoV and RSV were negative. The patient had a chest x-ray which showed a retrocardiac pneumonia. He was given Augmentin 875 mg twice a day. On July 18 after three days of Augmentin, he comes back with complaining worsening shortness of breath, fever, white count of 3.3. Another respiratory panel done was negative for COVID-19. Blood cultures x one set was negative. EBV serology was positive for old infection with positive IgG. Other workup including chlamydia, Legionnaire, mycoplasma are pending. MRSA screen was negative. The patient was on levofloxacin from July 18 to the , three days with persistent fever up to 102. Dr. Ortega called me on July 22 to discuss the case. We decided to switch him to doxycycline and the patient had defervesced. He remains on BiPAP at 20/10 pressure. He also had evidence of abnormal liver function tests but these have been ongoing since February of 2020 and has hepatosplenomegaly. PAST MEDICAL HISTORY: 1. Type 2 diabetes. 2. Gastroesophageal reflux disease. 3. Morbid obesity. PAST SURGICAL HISTORY: None. SOCIAL HISTORY: He denied drinking or smoking or illicit drug use. 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 He is not . He lives alone. He is not very open about his family life but has not worked in over three years. ALLERGIES: No known drug allergies. MEDICATIONS: 1. Doxycycline 100 mg IV q.12 hours. 2. Decadron 6 mg IV q.24. 3. Morphine 2 mg IV q.4 p.r.n. pain. 4. Ketorolac 15 mg IV q.8 hours. 5. OxyContin 10 mg p.o. b.i.d. 6. Oxycodone p.r.n. 7. Lidoderm patch to the back. 8. Cepacol lozenges as needed. 9. Albuterol inhaler two puffs q.4 p.r.n. 10. Tessalon 100 mg p.o. t.i.d. p.r.n. REVIEW OF SYSTEMS: The patient complains of back pain. He has a Lidoderm patch. He denies any rashes, no tick bites, no headache or neck stiffness. He complains of shortness of breath, has a BiPAP. He complains of being very hungry. He has no nausea, vomiting or diarrhea. LABORATORY DATA: White count 6.8. His white count was 3.2 on admission, hemoglobin 12.8, hematocrit 39, platelets 269, 75% neutrophils, 70% lymphocytes, 8% monocytes. ESR 59. Sodium 137, potassium 5.1, chloride 106, bicarb 27, BUN 16, creatinine 0.87, glucose 192, calcium 8.5, ferritin 1019. Total bilirubin 1, AST 63, down from 158. ALT is 65, down from 139. Alk phos 55, CPK 114, CRP 10.4 which has continued to increase in the past three days from 2.4. Total protein 6.5, albumin 2.5, procalcitonin 0.13 on admission. Blood culture, one set was negative. Respiratory on 07/18 was negative but he has had three previous respiratory panels that were negative. IMAGING STUDIES: Chest x-ray done 07/20 showed increased perihilar and lower lobe infiltrates with possible small pleural effusions. PHYSICAL EXAMINATION: He is a sick-looking gentleman in moderate respiratory discomfort. Temperature is 97.8, pulse 66, respiratory rate 37, blood pressure 139/84, O2 sat 97% on BiPAP with an FiO2 of 85%. Skin has multiple tattoos, no rashes. No clubbing, cyanosis or edema . Heart: Normal S1, S2, tachycardic. No murmurs appreciated. Lungs: Crackles both sides detention up, no wheezes or rhonchi. Abdomen: Morbidly obese, soft, nontender. Back: No CVA or lumbosacral tenderness. Neck: Supple, no adenopathy. CT of chest showed no definite pulmonary embolism, unremarkable aorta, subsegmental and segmental atelectasis. Left hilar calcification, no enlarged lymph nodes. Liver is low density. Spleen is not imaged but measures 13.6 cm. Consolidation in both upper lobes and both lower lobes. IMPRESSION: This is a 25-year-old gentleman who has been ill since July 11, presented to the emergency room with fever, cough and shortness of breath, found to have a retrocardiac pneumonia, treated with Augmentin 875 mg twice a day without improvement, Levaquin for three days with persistent fever and worsening hypoxia. The patient was switched to doxycyline with defervescence but still has significant hypoxia and is requiring BiPAP with an FiO2 of 85%. The patient had four times negative SARS-CoV-2 testing as well as RSV, influenza A and B and rest of respiratory pathogens. He had multiple testing done including Chlamydia pneumoniae and psittacosis, Legionnaire, Mycoplasma. Results are still pending. Hepatitis A, B and C done in setting of abnormal liver function tests were negative. EBV serology is suggestive of old infection. Other possible etiologies presenting with acute pneumonia could be fungal in origin. The patient's risk factor includes obesity and diabetes. Autoimmune disease is also in the differential. The patient is on Decadron and we would have expected him to improve with that but may benefit from increased dose. He has defervesced on doxycycline although he did not respond much to levofloxacin. There was some discussion about tick-borne illnesses but patient was not outdoors and does not do much other than visit family. PLAN: 1. Add HIV testing. The patient has multiple tattoos. Rule out also fungal etiologies. I have ordered Histoplasma urine antigen, Aspergillus galactomannan and Fungitell for beta 1, 3-glucan. 2. Continue with doxycycline 100 mg q.12 hours. If patient clinically stable tomorrow, I would suggest obtaining repeat CT of chest to rule out worsening pleural effusion that may need to be drained to improve his hypoxia. 3.May also consider better imaging of his abdomen to have a better view of his splenomegaly and cause of his abnormal liver function tests. 4.The case will be discussed with Dr. Monge from pulmonary for any further input. 5. Suggest adding a QuantiFERON-TB Gold. MTDD
[2020-07-24 18:37] LABS: ABG BASE EXCESS -0.9 (-2.0-2.0); ABG HCO3 23.7 MEQ/L (22.0-26.0); ABG O2 SATURATION 93.6 % (95.0-99.0); ABG PARTIAL PRESSURE CO2 38.9 mmHg (35.0-45.0); ABG PARTIAL PRESSURE O2 66.5 mmHg (75.0-100.0); ABG STANDARD HCO3 23.7 MEQ/L (22.0-26.0); ABG TOTAL CO2 24.9 MEQ/L (22.0-29.0); ABG pH (ARTERIAL) 7.402 UNITS (7.350-7.450)
--- NOTE | 2020-07-24 20:36 | REPVR ---
PROCEDURE INFORMATION: Exam: XR Chest, 1 View Exam date and time: 07/24/2020 6:28 PM Age: 25 years old Clinical indication: Shortness of breath; Additional info: Worsening hypoxemia TECHNIQUE: Imaging protocol: XR of the chest Views: 1 view. COMPARISON: [facility] PORTABLE CHEST X-RAY 07/20/2020 10:45 AM FINDINGS: Tubes, catheters and devices: External monitoring devices present. Lungs: There is consolidation in the left lower lobe. Mild hazy density noted in the right lung and left upper lung field. Pleural space: Blunting left lateral costophrenic angle. Heart/Mediastinum: Unremarkable. No cardiomegaly. Bones/joints: Unremarkable. IMPRESSION: Left lower lobe consolidation with hazy alveolar opacities bilaterally Electronically signed by: Shanna Choi On 07/24/2020 20:37:21 PM
[2020-07-24] MEDS: **NOTE PATIENT COMMENT** MISC XX SCH (21:00)
[2020-07-25] VITALS (12 sets, daily range): BP systolic 105–127; BP diastolic 56–73
[2020-07-25] MEDS: DOXYCYCLINE HYCLATE 100 MG in D5W MINI-BAG PLUS 100 ML IV SCH ×2 (01:05→12:43)
[2020-07-25 05:36] LABS: HEMATOCRIT 41.7 % (42.0-52.0); HEMOGLOBIN 13.3 g/dl (13.5-17.5); MEAN CORPUSCULAR HEMOGLOBIN 27.1 pg (27.0-33.0); MEAN CORPUSCULAR HGB CONC 31.9 g/dl (32.0-36.5); MEAN CORPUSCULAR VOLUME 85.1 fl (80.0-96.0); PLATELET COUNT, AUTOMATED 295 10^3/uL (150-450); WHITE BLOOD COUNT 9.9 10^3/uL (4.0-10.0)
[2020-07-25] MEDS: HumaLOG INSULIN (NovoLOG) PER UNIT SC SCH ×4 (06:00→17:49)
[2020-07-25 06:05] LABS: ALBUMIN 2.7 GM/DL (3.2-5.2); ALT/SGPT 70 U/L (12-78); BLOOD UREA NITROGEN 19 MG/DL (7-18); CALCIUM LEVEL 8.7 MG/DL (8.5-10.1); CARBON DIOXIDE LEVEL 28 MEQ/L (21-32); CHLORIDE LEVEL 105 MEQ/L (98-107); CHOLESTEROL LEVEL 140 MG/DL (< 200); CPK CREATINE PHOSPHOKINASE 75 U/L (39-308); CREATININE FOR GFR 0.75 MG/DL (0.70-1.30); GLOMERULAR FILTRATION RATE > 60.0 (>60); GLUCOSE, FASTING 146 MG/DL (70-100); LDH LACTATE DEHYDROGENASE 425 U/L (87-241); MAGNESIUM LEVEL 2.2 MG/DL (1.8-2.4); PHOSPHORUS LEVEL 3.9 MG/DL (2.5-4.9); POTASSIUM SERUM 4.4 MEQ/L (3.5-5.1); SODIUM LEVEL 139 MEQ/L (136-145); TOTAL PROTEIN 6.6 GM/DL (6.4-8.2); TRIGLYCERIDES LEVEL 221 MG/DL (<150)
[2020-07-25 06:31] LABS: ATYPICAL LYMPH 6 % (0-5); EOSINOPHILS 1 % (0-3); LYMPHOCYTES 14 % (16-44); MONOCYTES 6 % (0-5); NEUTROPHILS 72 % (28-66)
[2020-07-25 06:32] LABS: ANISOCYTOSIS 1+; PLATELET ESTIMATE NORMAL (NORMAL)
[2020-07-25] MEDS: NS 0.45% 1,000 ML IV SCH ×2 (08:27→17:49)
[2020-07-25] MEDS: LIDOCAINE 5% (LIDODERM) PATCH TD SCH (08:28)
[2020-07-25] MEDS: oxyCODONE 10 MG CR TAB PO SCH ×2 (08:28→09:00)
[2020-07-25] MEDS: ENOXAPARIN 40MG/0.4ML SYRINGE (J1650 PER 10MG) SC SCH (08:28)
[2020-07-25] MEDS: dexameTHASONE 20MG/5ML VIAL (J1100 PER 1MG) IV SCH (11:14)
[2020-07-25] MEDS: oxyCODONE 5MG TAB PO PRN ×2 (11:15→21:42)
--- NOTE | 2020-07-25 12:34 | IPN ---
PROGRESS NOTE DATE: 07/24/2020 SUBJECTIVE: Mickey has no complaints today. He has had no fever, chills, or chest pain, but has had significant shortness of breath. He was able to work with physical therapy for just a very short while getting out of bed, standing, and sitting a couple of times. He was not able to tolerate his Vapotherm and is currently on his BiPAP. OBJECTIVE: VITAL SIGNS: Temperature 97.5, pulse 57, respiratory rate 24 to 30, O2 saturation 91% on 100% FiO2 and BiPAP. HEART: Normal S1, S2, distant. LUNGS: Diminished breath sounds bilaterally. Patient gets very dyspneic with minimal exertion. ABDOMEN: Morbidly obese, soft, and nontender. EXTREMITIES: Trace edema. No clubbing or cyanosis. SKIN: Multiple tattoos. LABORATORY DATA: White count 9.1, hemoglobin 13.1, hematocrit 39.6, platelets 280,000, neutrophils 74%, lymphocytes 16%, monocytes 8%. Sodium 139, potassium 4.2, chloride 107, bicarb 24, BUN 19, creatinine 0.63, glucose 193, calcium 8.3, bilirubin 0.9, AST 49 down from 158, ALT 62, alkaline phosphatase 62. CRP 2.6 down from 10.4. Procalcitonin 0.15 was 0.13. COVID-19 SARS-coV-2 test x4 were negative. BNP on 07/20 was 19. IMAGING: No recent imaging done since 07/20. Echocardiogram done on 07/19/2020, showed no aortic stenosis, no aortic regurgitation, no mitral stenosis, and no mitral regurgitation. Normal left ventricular function. EF of 65%. Normal pulmonary artery systolic pressure. Tiny pericardial effusion and tiny left pleural effusion. Bubble study with saline was negative for detection of right heart to left cardiac shunting. IMPRESSION: 1. Respiratory failure with severe hypoxia on 100% FiO2. Chest CT on admission showed no evidence of pulmonary embolism, but has subsegmental and segmental atelectasis and consolidation bilaterally. 2. Hepatosplenomegaly with improving liver function tests. Negative hepatitis serology and Nan-Ratliff virus (EBV) serology. 3. Positive IBRAHIMA, but negative antimitochondrial antibodies, anti-smooth muscle antibodies. 4. Pneumonia. Patient treated so far with three days of Augmentin based on a positive throat culture for group B strep followed by levofloxacin for three days and currently on doxycycline. Patient defervesced with doxycycline, but his hypoxia did not improve. He has been on dexamethasone 6 mg IV q. [address] hours[address] Would suggest obtaining CT follow-up chest to rule out empyema or pleural effusion causing worsening hypoxia, whether he may need thoracentesis. Possibly may need increased dose of steroids. Other workup for fungal etiologies have been ordered yesterday, including Aspergillus galactomannan, [id number], histoplasma antigen, chlamydia, and mycoplasma and are still pending. PLAN: Arterial blood gases (ABGs) ordered. I have discussed the case with Dr. Monge who will be seeing the patient this afternoon. Chest CT will be ordered if the patient can tolerate it on BiPAP. I will leave that to Dr. Monge's discretion.
--- NOTE | 2020-07-25 14:12 | CCN ---
CRITICAL CARE NOTE DATE: 07/24/2020 SUBJECTIVE: I was called to the intensive care unit (ICU) to evaluate this 25-year-old male for hypoxic respiratory failure. Admitted on the 18 of July with fever and dyspnea. He has had repeated testing for COVID and there was a positive throat culture for strep. Various antibiotics have been given (three days Augmentin, four days Levaquin, currently doxycycline). Oxygenation has progressively deteriorated and his oxygen need has increased. For the past few days, he has been on noninvasive ventilation and now despite high FiO2 and high pressures, his oxygen saturations are borderline. OBJECTIVE: VITAL SIGNS: At bedside, his temperature is 97.5, T-max for the past 24 hours 99.2, pulse rate 56, respirations 28, blood pressure 111/65. GENERAL: He awakens, but is somewhat somnolent. HEENT: He has a noninvasive positive pressure ventilation mask in place. The fit is good. Minimal air leak is appreciated. NECK: Supple. There is no meningismus and no adenopathy. HEART: Sounds are regular without appreciable murmur. LUNGS: Breath sounds are diminished bilaterally. There is little air exchange in the bases. ABDOMEN: Soft and obese. EXTREMITIES: Show pulses x4. He has multiple tattoos. DIAGNOSTIC STUDIES: Reviewed. His current white cell count as of this morning was 9.1, hemoglobin 13.1, hematocrit 39.6, platelets 280,000. Differential white cell count shows 74.7 neutrophils. His electrolytes this morning are sodium 139, potassium 4.2, chloride 107, CO2 of 24. BUN is 19, creatinine 0.63, glucose 193. His AST is 49, ALT 62, albumin 2.6. C-reactive protein is down from 10.4 to 2.6. Procalcitonin is 0.15. Chest imaging was reviewed. He has had two portable chest x-rays and a CT image of the chest. There are patchy infiltrates and atelectasis in the bases. It is not a typical interstitial pattern. An arterial blood gas on 07/18, showed a pH of 7.36, pCO2 of 44, pO2 of 85. Oxygen flow rate during this testing was not listed. MEDICATIONS: I reviewed his current medications. He is receiving saline at 75 mL/hour, doxycycline 100 mg q. 12 hours, dexamethasone 6 mg q. 24 hours, pain medicine, Lovenox 40 mg daily, and Albuterol. ASSESSMENT AND PLAN: The primarily problem requiring critical attention is acute hypoxic respiratory failure. An arterial blood gas has been drawn and the results are pending. This will assess the clearance of CO2. From an infectious disease standpoint, the etiology of infection is unclear. It would seem that pneumonia is significant. Perhaps atypical pathogens are playing a role. Serologies have been sent, but are not returned. I will discuss the case further with Dr. Hsu. The patient is unable to tolerate a repeat CT image at this point, as withdrawing the noninvasive ventilation results in precipitous falls in oxygen saturation. I will, therefore, repeat a chest x-ray. There was a suggestion of some effusions or atelectasis on the film of 07/20. If fevers rise to 101, we will repeat blood cultures. 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 However, should the arterial blood gas show CO2 retention or if his hypoxemia further worsens, it will be necessary to place and endotracheal tube and perform formal mechanical ventilatory support. The patient's condition is critical. Prognosis is guarded. CRITICAL CARE TIME: 87 minutes was spent in the provision of bedside critical care and coordination, excluding procedure time.
--- NOTE | 2020-07-25 15:29 | CCN ---
CRITICAL CARE NOTE DATE: 07/25/2020 SUBJECTIVE: This patient is seen in the intensive care unit dependent on noninvasive ventilation. When he is mobilized, his saturation improves significant. He is, however, very unmotivated. OBJECTIVE: VITAL SIGNS: At bedside, his temperature is 97, T-max for the past 24 hours was 99.1, pulse rate 70, respirations 34, blood pressure 105/56. His saturation of oxygen is 97% on 80% oxygen at this point. INTAKE AND OUTPUT: For the past 24 hours is 1970 in and 1090 out; since midnight, 875 in and 325 out. GENERAL APPEARANCE: He is ill-appearing and withdrawn. HEENT: His mucosa is moist. NECK: Supple. HEART: Sounds are irregular. LUNGS: Breath sounds coarse clear with decreased breath sounds in the bases. Respiratory effort is marginal. ABDOMEN: Soft. EXTREMITIES: Show no significant edema. DIAGNOSTIC STUDIES: His white cell count today is stable at 9.9, hemoglobin is 13.3, hematocrit 41.7, and platelet count of 295,000. Differential cell count shows only 72% neutrophils; however, there are 6 atypical lymphocytes and 6 monocytes. The electrolytes are sodium 139, potassium 4.4, chloride 105, CO2 of 28, BUN 19, creatinine 0.75, glucose 146. His phosphorus is 3.9, magnesium 2.2, AST 56, ALT 70. His LDH is 425. C-reactive protein 2.66. Albumin is 2.7. Arterial blood gases yesterday showed a pH of 7.40, pCO2 of 38, pO2 of 66. His chest x-ray showed some hazy alveolar infiltrates and some consolidation in the left lower lobe. An echocardiogram performed earlier showed a negative bubble study for shunt. MEDICATIONS: On review of medications, he is receiving doxycycline 100 mg q. 12 hours, Decadron 6 mg q. 24 hours, pain medication, Lovenox 40 mg a day, and Albuterol. ASSESSMENT AND PLAN: The primarily problem requiring critical attention is hypoxic respiratory failure. The patient must move and use incentive spirometry if he is to improve. Aggressive efforts on part of nursing have resulted in improvement in his oxygenation status. Atypical pneumonia The patient is responding to doxycycline. Atypical lymphocytes suggest the possibility of a viral etiology, although his Coomb's test was negative. Chest x-ray did not suggest empyema and the patient is not experiencing chest pain. His degree of hypoxemia precludes obtaining a CT at this point. Deep vein thrombosis (DVT) prophylaxis is in place with Lovenox. The patient is at risk for stress ulceration given the severity of his illness and noninvasive ventilation. We will add Protonix. CRITICAL CARE TIME: 91 minutes was spent in the provision of bedside critical care and coordination, excluding procedure times.
--- NOTE | 2020-07-25 17:36 | IPNPDOC ---
Text Note Date of Service The patient was seen on 07/25/20. NOTE Subjective: Patient continues to be on the noninvasive ventilation with high F IO2. Oxygen saturation the morning 89%. Objective: GENERAL APPEARANCE: NAD HEENT: no scleral icterus, no JVD, EOMI CARDIOVASCULAR: S1S2 LUNGS: Diminished lung sounds bilaterally ABDOMEN: soft & not tender w palpitation MUSCULOSKELETAL: no cyanosis, no swelling INTEGUMENT: no generalized pallor NEUROLOGICAL: cranial nerve function from 2-12 intact intact, follows commands, speech not dysarthric Assessment and plan: Mr. Montilla is a 25-year-old male with type 2 diabetes mellitus with acute hypox ic respiratory failure secondary to pneumonia and splinting. He is also here with transaminitis. Discuss case with home/crit care, Dr. Ortega. We'll work up autoimmune hepatitis. Also currently pending hepatitis panel. Otherwise continue with levofloxacin. Would not need Augmentin at this time. His acute hypoxic respiratory failure is thought to be secondary to splinting. He is not taking deep breaths as seen in CXR and CT. Will try to control the pain better with scheduled and PRN oxycodone. Cautious with Tylenol due to liver damage. Cautious with NSAIDs as it will be needed for fevers Plan 1. Acute hypoxic respiratory failure Most likely secondary to pneumonia of unknown etiology Await atypical culture results Continue BiPAP I discontinued opioids which definitely suppress respiratory drive 2. Pneumonia Community acquired, bilateral Patient has been treated with levofloxacin Pending atypical pneumonia workup Await HIV test and QuantiFERON test, Aspergillus galactomannan, [id number], histoplasma antigen CTA on 11/15/20 showed scattered segmental and subsegmental atelectasis and c onsolidation noted bilaterally COVID test negative Procalcitonin 0.13 on 07/19/20 Dr. Hsu recommended to add doxycycline and start steroids. Also she recommended repeat CT, unfortunately patient continues to have high oxygen requirements 3. Questionable COVID status Patient reports no COVID exposures He does report loss of taste Multiple COVID tests negative 4. Strep pharyngitis Resolved Patient was in the ED on July 11 and for fever Test positive for strep pharyngitis Was on Augmentin, but now on levofloxacin and doxycycline Monoscreen negative EBV IgG positive, IgM negative 5. Transaminitis Elevated AST and ALT Possible EBV. Pending EBV serologies Autoimmune hepatitis initiated hepatitis panel negative Improved on 07/21/20. Could be secondary to hepatic steatosis is secondary to obesity 6. Diabetes mellitus Glucose level under control Sliding scale insulin Malnutrition Patient is on BiPAP, he was not eating for past 7-8 days Will try to give him Ensure VS,Fishbone, I+O VS, Fishbone, I+O Laboratory Tests 07/25/20 05:02 Vital Signs Date Time Temp Pulse Resp B/P (MAP) Pulse Ox O2 Delivery O2 Flow Rate FiO2 07/25/20 16:00 70 07/25/20 16:00 99.5 65 32 127/59 (81) 93 NIPPV (BIPAP/CPAP) 07/24/20 16:00 40.0 I&O- Last 24 Hours up to 6 AM 07/25/20 06:00 Intake Total 2010 ml Output Total 940 ml Balance 1070 ml AL NORTH DO Jul 25, 2020 17:36
[2020-07-25] MEDS: PANTOPRAZOLE 40MG TAB (PROTONIX) PO SCH (17:48)
[2020-07-25] MEDS: **NOTE PATIENT COMMENT** MISC XX SCH (21:40)
[2020-07-26] VITALS (8 sets, daily range): BP systolic 107–125; BP diastolic 56–74; O2SAT 91–95
[2020-07-26] MEDS: DOXYCYCLINE HYCLATE 100 MG in D5W MINI-BAG PLUS 100 ML IV SCH ×2 (01:51→12:35)
[2020-07-26] MEDS: NS 0.45% 1,000 ML IV SCH ×2 (05:42→20:54)
[2020-07-26 06:00] LABS: HEMATOCRIT 45.2 % (42.0-52.0); HEMOGLOBIN 13.6 g/dl (13.5-17.5); MEAN CORPUSCULAR HGB CONC 30.1 g/dl (32.0-36.5); MEAN CORPUSCULAR VOLUME 89.9 fl (80.0-96.0); PLATELET COUNT, AUTOMATED 277 10^3/uL (150-450); RED BLOOD COUNT 5.03 10^6/uL (4.30-6.10); WHITE BLOOD COUNT 8.9 10^3/uL (4.0-10.0)
[2020-07-26] MEDS: HumaLOG INSULIN (NovoLOG) PER UNIT SC SCH ×5 (06:00→21:00)
[2020-07-26 06:24] LABS: BLOOD UREA NITROGEN 16 MG/DL (7-18); CARBON DIOXIDE LEVEL 24 MEQ/L (21-32); CHLORIDE LEVEL 107 MEQ/L (98-107); CREATININE FOR GFR 0.59 MG/DL (0.70-1.30); GLOMERULAR FILTRATION RATE > 60.0 (>60); GLUCOSE, FASTING 125 MG/DL (70-100); MAGNESIUM LEVEL 2.2 MG/DL (1.8-2.4); SODIUM LEVEL 139 MEQ/L (136-145)
[2020-07-26 07:05] LABS: ATYPICAL LYMPH 3 % (0-5); LYMPHOCYTES 24 % (16-44); MONOCYTES 6 % (0-5); NEUTROPHILS 66 % (28-66)
[2020-07-26 07:06] LABS: ANISOCYTOSIS 1+; PLATELET ESTIMATE NORMAL (NORMAL)
[2020-07-26] MEDS: PANTOPRAZOLE 40MG TAB (PROTONIX) PO SCH (08:13)
[2020-07-26] MEDS: ENOXAPARIN 40MG/0.4ML SYRINGE (J1650 PER 10MG) SC SCH (08:13)
[2020-07-26] MEDS: LIDOCAINE 5% (LIDODERM) PATCH TD SCH (08:14)
[2020-07-26] MEDS: dexameTHASONE 20MG/5ML VIAL (J1100 PER 1MG) IV SCH (11:31)
--- NOTE | 2020-07-26 14:55 | IPNPDOC ---
Text Note Date of Service The patient was seen on 07/26/20. NOTE Subjective: Patient stated that he feels improvement today, he was able to sit and eat. He was on Vapotherm in the morning. He looks depressed but he denied any depression symptoms Objective: GENERAL APPEARANCE: NAD HEENT: no scleral icterus, no JVD, EOMI CARDIOVASCULAR: S1S2 LUNGS: Diminished lung sounds bilaterally ABDOMEN: soft & not tender w palpitation MUSCULOSKELETAL: no cyanosis, no swelling INTEGUMENT: no generalized pallor NEUROLOGICAL: cranial nerve function from 2-12 intact intact, follows commands, speech not dysarthric Assessment and plan: Mr. Montilla is a 25-year-old male with type 2 diabetes mellitus with acute hypoxic respiratory failure secondary to pneumonia and splinting. He is also here with transaminitis. Discuss case with home/crit care, Dr. Ortega. We'll work up autoimmune hepatitis. Also currently pending hepatitis panel. Otherwise continue with levofloxacin. Would not need Augmentin at this time. His acute hypoxic respiratory failure is thought to be secondary to splinting. He is not taking deep breaths as seen in CXR and CT. Will try to control the pain better with scheduled and PRN oxycodone. Cautious with Tylenol due to liver damage. Cautious with NSAIDs as it will be needed for fevers Plan 1. Acute hypoxic respiratory failure Most likely secondary to pneumonia of unknown etiology Await atypical culture results I discontinued opioids which definitely suppress respiratory drive 2. Pneumonia Community acquired, bilateral Patient has been treated with levofloxacin Pending atypical pneumonia workup HIV test negative and await QuantiFERON test, Aspergillus galactomannan, [id number], histoplasma antigen CTA on 11/15/20 showed scattered segmental and subsegmental atelectasis and consolidation noted bilaterally COVID test negative Procalcitonin 0.13 on 07/19/20 Dr. Hsu recommended to add doxycycline and start steroids. Also she recommended repeat CT, unfortunately patient continues to have high oxygen requirements 3. Questionable COVID status Patient reports no COVID exposures He does report loss of taste Multiple COVID tests negative 4. Strep pharyngitis Resolved Patient was in the ED on July 11 and for fever Test positive for strep pharyngitis Was on Augmentin, but now on doxycycline Monoscreen negative EBV IgG positive, IgM negative 5. Transaminitis Elevated AST and ALT Possible EBV. Pending EBV serologies Autoimmune hepatitis initiated hepatitis panel negative Improved on 07/21/20. Could be secondary to hepatic steatosis is secondary to obesity 6. Diabetes mellitus Glucose level under control Sliding scale insulin Malnutrition Patient started eating small portion today VS,Fishbone, I+O VS, Fishbone, I+O Laboratory Tests 07/26/20 03:59 Vital Signs Date Time Temp Pulse Resp B/P (MAP) Pulse Ox O2 Delivery O2 Flow Rate FiO2 07/26/20 10:45 95 BIPAP/CPAP 65 07/26/20 09:51 99.4 75 22 114/56 (75) 35.0 I&O- Last 24 Hours up to 6 AM 07/26/20 06:00 Intake Total 1925 ml Output Total 985 ml Balance 940 ml AL NORTH DO Jul 26, 2020 14:55
[2020-07-26 15:55] LABS: C REACTIVE PROTEIN QUANTITATIV 4.54 MG/DL (0.00-0.30)
[2020-07-26] MEDS: **NOTE PATIENT COMMENT** MISC XX SCH (20:54)
[2020-07-27] VITALS (9 sets, daily range): BP systolic 111–126; BP diastolic 60–80; PULSE 86–102; O2SAT 91
[2020-07-27] MEDS: DOXYCYCLINE HYCLATE 100 MG in D5W MINI-BAG PLUS 100 ML IV SCH ×2 (01:13→12:48)
[2020-07-27] MEDS: oxyCODONE 5MG TAB PO PRN (05:17)
[2020-07-27 06:47] LABS: BASO % 0.2 % (0.0-1.0); EOS # 0.1 10^3/uL (0.0-0.5); EOS % 0.5 % (0.0-3.0); HEMATOCRIT 40.9 % (42.0-52.0); LYMPH # 2.2 10^3/uL (1.5-5.0); LYMPH % 19.6 % (24.0-44.0); MEAN CORPUSCULAR HEMOGLOBIN 27.5 pg (27.0-33.0); MEAN CORPUSCULAR HGB CONC 31.8 g/dl (32.0-36.5); MEAN CORPUSCULAR VOLUME 86.5 fl (80.0-96.0); MONO % 8.7 % (0.0-5.0); NEUTROPHILS % 69.9 % (36.0-66.0); PLATELET COUNT, AUTOMATED 290 10^3/uL (150-450); RED BLOOD COUNT 4.73 10^6/uL (4.30-6.10); WHITE BLOOD COUNT 11.4 10^3/uL (4.0-10.0)
[2020-07-27 07:12] LABS: BLOOD UREA NITROGEN 12 MG/DL (7-18); CALCIUM LEVEL 8.2 MG/DL (8.5-10.1); CARBON DIOXIDE LEVEL 25 MEQ/L (21-32); CHLORIDE LEVEL 104 MEQ/L (98-107); CREATININE FOR GFR 0.63 MG/DL (0.70-1.30); GLOMERULAR FILTRATION RATE > 60.0 (>60); GLUCOSE, FASTING 144 MG/DL (70-100); MAGNESIUM LEVEL 2.1 MG/DL (1.8-2.4); POTASSIUM SERUM 3.6 MEQ/L (3.5-5.1); SODIUM LEVEL 138 MEQ/L (136-145)
--- NOTE | 2020-07-27 07:55 | REP ---
INDICATION: pneumonia/hypoxemia COMPARISON: 07/24/2020 TECHNIQUE: Portable AP view of the chest FINDINGS: Increased areas of opacity and consolidation are appreciated in the right midlung zone and left lower lung zone. Small left effusion cannot be excluded. No pneumothorax. Cardiac silhouette is stable. Skeletal structures are intact. IMPRESSION: Increasing areas of opacity and consolidation (left greater than right). <Electronically signed by Jordi Noriega > 07/27/20 0757
[2020-07-27] MEDS ORDERED: POTASSIUM CHLORIDE 10 MEQ SR TABLET PO ONE (08:15)
[2020-07-27] MEDS: PANTOPRAZOLE 40MG TAB (PROTONIX) PO SCH (08:38)
[2020-07-27] MEDS: HumaLOG INSULIN (NovoLOG) PER UNIT SC SCH ×4 (08:38→21:00)
[2020-07-27] MEDS: LIDOCAINE 5% (LIDODERM) PATCH TD SCH (08:39)
[2020-07-27] MEDS: ENOXAPARIN 40MG/0.4ML SYRINGE (J1650 PER 10MG) SC SCH (08:39)
--- NOTE | 2020-07-27 09:34 | CCN ---
CRITICAL CARE NOTE DATE: 07/26/2020 SUBJECTIVE: The patient is seen in the intensive care unit on noninvasive ventilation, hospital day #9, noninvasive ventilation day #6. His oxygen requirements are improved to some extent with aggressive efforts on the part of nursing to mobilize him. He has some cough and minimal sputum production. OBJECTIVE: VITAL SIGNS: Temperature 99.4, T-max over the past 24 hours 99.5, pulse rate 75, respirations 22, blood pressure 114/56. INTAKE AND OUTPUT: For the past 24 hours, 2025 in and 1075 out; since midnight 725 in and 360 out. GENERAL APPEARANCE: He is ill-appearing and withdrawn. HEENT: His oral mucosa is pink. NECK: Supple. HEART: Sounds regular. LUNGS: Breath sounds coarse diminished with bibasilar rhonchi. ABDOMEN: Soft. EXTREMITIES: No significant edema. DIAGNOSTIC STUDIES: His white cell count is down to 8.9, hemoglobin 13.6, hematocrit 45.2, platelet count 277,000. Differential white cell count shows only 66% neutrophils. There is only one band cell today and less atypical lymphocytes. His electrolytes are sodium 139, potassium 4, chloride 107, CO2 of 24, BUN 16, creatinine 0.59, and glucose 125. His calcium is 8. No new results on microbiology studies. His HIV test was negative as was MRSA screen. IMAGING STUDIES: No new chest imaging done today. On review of his echocardiogram, the bubble study did not show any shunt. MEDICATIONS: On review, this is day #3 doxycycline, he continues on dexamethasone, and pain medications. He is receiving Lovenox 40 mg a day and Protonix 40 mg a day. ASSESSMENT AND PLAN: The primary problem requiring critical attention is hypoxemic respiratory failure secondary to pneumonia. The patient is responding to aggressive efforts on the part of nursing to mobilize him to be up and out of bed and cough. He will be tried today on Vapotherm for a period of time to allow him to eat so long as his saturations are acceptable and also to improve mobilization. Infectious disease - The etiology of his infection is not clear. He is responding to doxycycline. He has not had temperature and there are less atypical lymphocytes. We will recheck a chest x-ray tomorrow morning. Nutrition We will increase his diet today so long as he is able to maintain saturations off BiPAP on Vapotherm. Deep vein thrombosis (DVT) prophylaxis being addressed with Lovenox. Ulcer prophylaxis being addressed with Protonix. The patient's condition remains critical. Prognosis is guarded. CRITICAL CARE TIME: 78 minutes was spent in the provision of bedside critical care and coordination, exclusive of any procedure times.
[2020-07-27] MEDS: NS 0.45% 1,000 ML IV SCH (10:33)
[2020-07-27] MEDS: ACETAMINOPHEN TAB 650MG DOSE (2X325MG) PO PRN (12:55)
--- NOTE | 2020-07-27 13:16 | CCN ---
CRITICAL CARE NOTE DATE: 07/18/2020 SUBJECTIVE: Mr. Montilla was seen and examined this morning. There have been no adverse events reported over night. He does remain on BiLevel currently, hospital day #10 with BiLevel day #7. He still is requiring FiO2 level of 80. The patient has been working with physical therapy to help with mobilization. This morning, the patient does complain of feeling short of breath. Additionally, he continues to complain of some diffuse abdominal pain, although states that this comes and goes. OBJECTIVE: VITAL SIGNS: Temperature 98, pulse 65, respiratory rate 28, blood pressure 114/60, pulse oximetry 94% on BiLevel with FiO2 of 80. GENERAL: The patient is ill-appearing. He is awake. He is alert. He is oriented. He does not appear in any acute distress. HEENT: Atraumatic, normocephalic. Patient's eyes are nonicteric. Trachea is midline. He has a BiPAP mask in place. CARDIOVASCULAR: There is normal S1, S2. There is a regular rate and rhythm. There are no clicks, rubs, or murmurs auscultated. RESPIRATORY: There are somewhat diminished breath sounds in the bases with some overlying rhonchi. There is good respiratory effort. No wheezes ABDOMEN: The patient's abdomen is soft and nondistended. There is some mild tenderness with palpation of the right upper quadrant. There is no rebound tenderness or guarding. EXTREMITIES: Full and equal pulses bilaterally in the upper and lower extremities. No edema present. NEUROLOGIC: No focal neurological deficits. PSYCHIATRIC: Mood and affect appear appropriate. LABORATORY STUDIES: Hematology: White blood cell 11.4, hemoglobin 13, hematocrit 40.9, platelet count 290,000. Chemistries: Sodium 138, potassium 3.6, chloride 104, CO2 of 25, BUN 12, creatinine 0.63, fasting glucose 144, calcium 8.2, magnesium 2.1. IMAGING: Chest x-ray from today demonstrating some increased areas of opacity and consolidation in the right mid lung zone, as well as the left lower lung zone. There may also be a small left pleural effusion. INPATIENT MEDICATIONS: Protonix 40 mg daily p.o., potassium chloride 75 mL/hour, doxycycline 100 mg every 12 hours, acetaminophen 650 mg every 4 hours p.r.n., oxycodone 5 mg every 6 hours p.r.n., Lovenox 40 mg daily, Cepacol one lozenges every 1 hour p.r.n., Albuterol two puffs q. 4 hours p.r.n., Tessalon Perles 100 mg t.i.d. p.r.n., magic mouthwash 5 mL q.i.d. p.r.n.. ASSESSMENT AND PLAN: Mr. Montilla is a 25-year-old male with a history of type 2 diabetes mellitus and gastroesophageal reflux disease (GERD), who presented to the [facility] Emergency Department with shortness of breath and was found to be hypoxic. He developed hypoxemic respiratory failure requiring BiLevel. The patient has been evaluated for COVID, as well as possible pulmonary embolism all of which have been unrevealing. 1. Hypoxemic respiratory failure. The patient's most pressing issue is hypoxemic respiratory failure. Currently he is stable. He is requiring BiLevel with an FiO2 of 80. Likely multifactorial secondary to his pneumonia, which appears to be atypical pneumonia, possible viral etiology with possible overlying bacterial coinfection. Initially the patient also had some pain on deep inspiration. Some of his hypoxia may be secondary to splinting and lastly, the patient has been fairly immobile and likely deconditioned. Currently, the patient will remain on BiLevel. He is continued on doxycycline as his fever seems to be in response to this. The etiology of his pneumonia at this time is still unclear; although likely an atypical pneumonia, it is possible also viral. Patient has has multiple negative COVID-19 PCR tests. Plan to continue physical therapy. When patients oxygen requirements decrease will likely repeat CT of chest. 2. Atypical pneumonia. The patient has what appears to be an atypical pneumonia on chest x-ray. He has a consolidation in the right mid lung zone, as well as the left lower lung zone. He is on doxycycline currently as his fever has responded to this. Will continue at this current time. Infectious disease is currently following and their recommendations are appreciated. Plan to repeat Chest CT once oxygen requirements decrease 3. Deep vein thrombosis prophylaxis. The patient is currently on Lovenox. 4. Ulcer prophylaxis. The patient is currently on Protonix. DISPOSITION: The patient does remain critically ill due to his hypoxia. CRITICAL CARE TIME: 45 minutes spent at bedside with critical care time and coordination. Dictated by Dave Delgadillo DO in conjunction with Ray Monge M.D. Dr. Monge: I have seen the patient and participated in the provision of the above described critical care and coordination. The patient is critically ill and ICU care remains necessary. His failure to participate in measures to assist his recovery is significantly impairing our ability to help him. LESLIE
[2020-07-27] MEDS: ALBUTEROL 90 MCG/ACT 8GM HFA INHALER INH PRN ×2 (16:56→20:39)
--- NOTE | 2020-07-27 17:00 | IPNPDOC ---
Text Note Date of Service The patient was seen on 07/27/20. NOTE Subjective: Patient continues to be on the BiPAP, he had short period on Vapo therm around 40 minutes overnight. He was able to eat. Assessment and plan: Mr. Montilla is a 25-year-old male with type 2 diabetes mellitus with acute hypoxic respiratory failure secondary to pneumonia and splinting. He is also here with transaminitis. Discuss case with home/crit care, Dr. Ortega. We'll work up autoimmune hepatitis. Also currently pending hepatitis panel. Otherwise continue with levofloxacin. Would not need Augmentin at this time. His acute hypoxic respiratory failure is thought to be secondary to splinting. He is not taking deep breaths as seen in CXR and CT. Will try to control the pain better with scheduled and PRN oxycodone. Cautious with Tylenol due to liver damage. Ca utious with NSAIDs as it will be needed for fevers Objective: GENERAL APPEARANCE: NAD HEENT: no scleral icterus, no JVD, EOMI CARDIOVASCULAR: S1S2 LUNGS: Diminished lung sounds bilaterally ABDOMEN: soft & not tender w palpitation MUSCULOSKELETAL: no cyanosis, no swelling INTEGUMENT: no generalized pallor NEUROLOGICAL: cranial nerve function from 2-12 intact intact, follows commands, speech not dysarthric Plan 1. Acute hypoxic respiratory failure Most likely secondary to pneumonia of unknown etiology Await atypical culture results I discontinued opioids which definitely suppress respiratory drive I encouraged patient to do physical therapy 2. Pneumonia Community acquired, bilateral Patient has been treated with levofloxacin Pending atypical pneumonia workup HIV test negative and await QuantiFERON test, Aspergillus galactomannan, [id number], histoplasma antigen CTA on 11/15/20 showed scattered segmental and subsegmental atelectasis and consolidation noted bilaterally COVID test negative Procalcitonin 0.13 on 07/19/20 Dr. Hsu recommended to add doxycycline and start steroids. Also she recommended repeat CT, unfortunately patient continues to have high oxygen requirements 3. Questionable COVID status Patient reports no COVID exposures He does report loss of taste Multiple COVID tests negative 4. Strep pharyngitis Resolved Patient was in the ED on July 11 and for fever Test positive for strep pharyngitis Was on Augmentin, but now on doxycycline Monoscreen negative EBV IgG positive, IgM negative 5. Transaminitis Elevated AST and ALT Possible EBV. Pending EBV serologies Autoimmune hepatitis initiated hepatitis panel negative Improved on 07/21/20. Could be secondary to hepatic steatosis is secondary to obesity 6. Diabetes mellitus Glucose level under control Sliding scale insulin Malnutrition Patient started eating small portion today VS,Fishbone, I+O VS, Fishbone, I+O Laboratory Tests 07/27/20 06:19 Vital Signs Date Time Temp Pulse Resp B/P (MAP) Pulse Ox O2 Delivery O2 Flow Rate FiO2 07/27/20 16:00 90 07/27/20 16:00 79 28 116/67 (83) 95 NIPPV (BIPAP/CPAP) 07/27/20 13:00 40.0 07/27/20 12:00 98.2 I&O- Last 24 Hours up to 6 AM 07/27/20 06:00 Intake Total 2440 ml Output Total 1530 ml Balance 910 ml AL NORTH DO Jul 27, 2020 17:00
[2020-07-27] MEDS ORDERED: IBUPROFEN 400MG TAB PO ONE (20:45)
[2020-07-27] MEDS: **NOTE PATIENT COMMENT** MISC XX SCH (21:26)
[2020-07-28] VITALS (10 sets, daily range): BP systolic 102–139; BP diastolic 55–85
[2020-07-28] MEDS: DOXYCYCLINE HYCLATE 100 MG in D5W MINI-BAG PLUS 100 ML IV SCH ×2 (00:05→13:17)
[2020-07-28] MEDS: NS 0.45% 1,000 ML IV SCH (00:10)
[2020-07-28] MEDS: ACETAMINOPHEN TAB 650MG DOSE (2X325MG) PO PRN ×3 (03:29→20:02)
[2020-07-28 06:02] LABS: BASO % 0.2 % (0.0-1.0); EOS # 0.1 10^3/uL (0.0-0.5); EOS % 0.6 % (0.0-3.0); HEMATOCRIT 38.6 % (42.0-52.0); HEMOGLOBIN 12.5 g/dl (13.5-17.5); LYMPH # 1.5 10^3/uL (1.5-5.0); LYMPH % 13.6 % (24.0-44.0); MEAN CORPUSCULAR HEMOGLOBIN 27.7 pg (27.0-33.0); MEAN CORPUSCULAR HGB CONC 32.4 g/dl (32.0-36.5); MEAN CORPUSCULAR VOLUME 85.4 fl (80.0-96.0); MONO # 0.9 10^3/uL (0.0-0.8); MONO % 8.2 % (0.0-5.0); NEUTROPHILS # 8.7 10^3/uL (1.5-8.5); NEUTROPHILS % 76.3 % (36.0-66.0); PLATELET COUNT, AUTOMATED 271 10^3/uL (150-450); RED BLOOD COUNT 4.52 10^6/uL (4.30-6.10); WHITE BLOOD COUNT 11.4 10^3/uL (4.0-10.0)
[2020-07-28 06:28] LABS: BLOOD UREA NITROGEN 11 MG/DL (7-18); CALCIUM LEVEL 8.5 MG/DL (8.5-10.1); CARBON DIOXIDE LEVEL 25 MEQ/L (21-32); CHLORIDE LEVEL 106 MEQ/L (98-107); CREATININE FOR GFR 0.71 MG/DL (0.70-1.30); GLOMERULAR FILTRATION RATE > 60.0 (>60); GLUCOSE, FASTING 176 MG/DL (70-100); POTASSIUM SERUM 4.1 MEQ/L (3.5-5.1); SODIUM LEVEL 139 MEQ/L (136-145)
[2020-07-28] MEDS: PANTOPRAZOLE 40MG TAB (PROTONIX) PO SCH (09:12)
[2020-07-28] MEDS: HumaLOG INSULIN (NovoLOG) PER UNIT SC SCH ×4 (09:12→20:27)
[2020-07-28] MEDS: ENOXAPARIN 40MG/0.4ML SYRINGE (J1650 PER 10MG) SC SCH (09:13)
[2020-07-28] MEDS: LIDOCAINE 5% (LIDODERM) PATCH TD SCH (09:13)
[2020-07-28] MEDS: ALBUTEROL 90 MCG/ACT 8GM HFA INHALER INH PRN (09:23)
[2020-07-28] MEDS ORDERED: ISOVUE-370 76% 100ML VIAL As Ordered ONE (12:34)
--- NOTE | 2020-07-28 13:38 | CCN ---
CRITICAL CARE NOTE DATE: 07/28/2020 SUBJECTIVE: Mr. Montilla was seen and examined this morning. There have been no adverse events reported overnight. The patient is continued on BiLevel during sleep; however, has been transitioned to Vapotherm for meals. He is requiring a high amount of oxygen. His FiO2 this morning was 90. His O2 saturations have been in the low 90s on this. The patient has been working with physical therapy for mobilization. He does continue to complain of shortness of breath. He states that his abdominal pain has improved somewhat. Overall, the patient himself is fairly nonparticipatory with his care. He has been noted to lie in bed for most of the day and does not get up and move around. The patient has been encouraged to do so. OBJECTIVE: VITAL SIGNS: Temperature 100.3, pulse 74, respiratory rate 30, blood pressure 109/56. Pulse oximetry 90% on BiPAP with an FiO2 of 90. GENERAL: The patient is awake, alert, and oriented. He does appear critically ill. He is not in any acute distress. He appears somewhat tachypneic. The patient is able to speak in full sentences. HEENT: Atraumatic/normocephalic. Eyes are nonicteric. His trachea is midline. He has BiLevel in place. CARDIOVASCULAR: There is a normal S1, S2. Regular rate and rhythm. No clicks, rubs, or murmurs are auscultated. RESPIRATORY: The patient has somewhat distant and diminished breath sounds bilaterally. There are some overlying rhonchi, particularly in the bases, and otherwise good respiratory effort. There is no accessory muscle use. There are no crackles. ABDOMEN: The patient's abdomen is soft, nondistended, and nontender. There is no rebound tenderness or guarding. There are normoactive bowel sounds throughout. There is no abdominal bruising or masses. EXTREMITIES: The patient's extremities are void of edema. There are full and equal pulses bilateral upper and lower extremities. NEUROLOGIC: No focal neurological deficits. PSYCHIATRIC: The patient appears to be in somewhat of a depressed mood. He does not participate in his care and remains lying down in bed for most of the day. LABORATORY DATA: White blood cell 11.4, hemoglobin 12.5, hematocrit 38.6, platelet count 271,000. Chemistries: Sodium 139, potassium 4.1, chloride 106, carbon dioxide 25, BUN 11, creatinine 0.71, fasting glucose 176, calcium 8.5, magnesium 2.0. COVID-19 test negative. ASSESSMENT AND PLAN: Mr. Montilla is a 25-year-old male with a history of type 2 diabetes mellitus and gastroesophageal reflux disease, who presented with [facility] with complaint of shortness of breath and was found to be hypoxic. He subsequently developed hypoxemic respiratory failure and required BiLevel. The patient has been evaluated for COVID, as well as possible pulmonary embolism of which workup has been negative so far. 1. Hypoxemic respiratory failure. The patient continues to have hypoxemic respiratory failure. Currently he is stable; however, is requiring high levels of FiO2. The patient has been transitioned to Vapotherm when awake and BiPAP when sleeping. His hypoxia is most likely multifactorial secondary to pneumonia, which appears to be atypical. He has had repeat COVID test today, which again was negative. The patient denies anymore pain on deep inspiration; however, he has also been fairly immobile and likely deconditioned. His hypoxia may be multifactorial to the pneumonia, as well as deconditioning and likely atelectasis. He does have an incentive spirometer and chest PT ordered; however, the patient does not use the incentive spirometer. The patient is continued on doxycycline as previously his fevers were responsive to this. Current recommendations are to repeat his chest CT as he is now on Vapotherm and able to be taken to the CT scanner. Will also obtain a CT of the abdomen and pelvis due to his recurrent fevers. Infectious disease is currently following and their recommendations are appreciated. 2. Atypical pneumonia. As stated previously, the patient has an atypical pneumonia on chest x-ray. This did demonstrate some consolidation, particularly in the right mid lung zone and the lower lung zone. He is continued on his doxycycline as his fever had responded to this. However, the patient was again febrile today. CT chest to be repeated today to rule out worsening either pleural effusion or empyema. Infectious disease is following him and their recommendations are appreciated. 3. Fever. The patient has continued fever, likely secondary to pneumonia, although the etiology is unclear. Appears to be an atypical pneumonia and multifocal. The patient is currently on doxycycline and will continue at this current time. 4. Deep vein thrombosis (DVT) prophylaxis. The patient is continued on Lovenox. 5. Ulcer prophylaxis. The patient is currently on Protonix and will continue. DISPOSITION: The patient once again remains critically ill due to his hypoxia. CRITICAL CARE TIME: 45 minutes spent in bedtime critical care time and coordination. Dr. Monge: I participated in the above outlined evaluation of this critical patient and agree with reevaluation of his CT. There is no clinical evidence of lung abscess or effusion but he is not responding as would be expected. Case discussed with attending hospitalist and ID. the patient is critically ill and ICU level of care is appropriate. LESLIE
[2020-07-28] MEDS: PIPERACILLIN/TAZOBACTAM SOD 3.375 GM in D5W MINI-BAG PLUS 50 ML IV SCH ×2 (15:00→20:02)
[2020-07-28] MEDS ORDERED: dexameTHASONE 4 MG/ML 1ML VIAL (J1100 PER 1MG) IV SCH (16:00)
--- NOTE | 2020-07-28 16:47 | IPNPDOC ---
Text Note Date of Service The patient was seen on 07/28/20. NOTE Subjective: Patient continues to have high oxygen requirements, most of the time he is on the BiPAP. Patient was febrile in the morning and overnight. Blood culture was ordered Objective: GENERAL APPEARANCE: NAD HEENT: no scleral icterus, no JVD, EOMI CARDIOVASCULAR: S1S2 LUNGS: Diminished lung sounds bilaterally ABDOMEN: soft & not tender w palpitation MUSCULOSKELETAL: no cyanosis, no swelling INTEGUMENT: no generalized pallor NEUROLOGICAL: cranial nerve function from 2-12 intact intact, follows commands, speech not dysarthric Plan Mr. Montilla is a 25-year-old male with type 2 diabetes mellitus with acute hypoxic respiratory failure secondary to pneumonia and splinting. He is also here with transaminitis. Discuss case with home/crit care, Dr. Ortega. We'll work up autoimmune hepatitis. Also currently pending hepatitis panel. Otherwise continue with levofloxacin. Would not need Augmentin at this time. His acute hypoxic respiratory failure is thought to be secondary to splinting. He is not taking deep breaths as seen in CXR and CT. Will try to control the pain better with scheduled and PRN oxycodone. Cautious with Tylenol due to liver damage. Cautious with NSAIDs as it will be needed for fevers 1. Acute hypoxic respiratory failure Most likely secondary to pneumonia of unknown etiology Await atypical culture results I discontinued opioids which definitely suppress respiratory drive I encouraged patient to do physical therapy 2. Pneumonia Community acquired, bilateral Patient has been treated with levofloxacin Pending atypical pneumonia workup HIV test negative and await QuantiFERON test, Aspergillus galactomannan, [id number], histoplasma antigen CTA on 11/15/20 showed scattered segmental and subsegmental atelectasis and consolidation noted bilaterally COVID test negative Procalcitonin 0.13 on 07/19/20 Dr. Hsu recommended to add doxycycline. I discussed with Dr. Hsu patient's fever, she recommended to start Zosyn IV Repeated CT chest and abdomen/pelvis was done today. CT chest showed worsening bilateral consolidation. I discussed it with Dr. Monge, there is concern for AIP, steroids restarted 3. Questionable COVID status Patient reports no COVID exposures He does report loss of taste Multiple COVID tests negative 4. Strep pharyngitis Resolved Patient was in the ED on July 11 and for fever Test positive for strep pharyngitis Was on Augmentin, but now on doxycycline Monoscreen negative EBV IgG positive, IgM negative 5. Transaminitis Elevated AST and ALT Possible EBV. Pending EBV serologies Autoimmune hepatitis initiated hepatitis panel negative Improved on 07/21/20. Could be secondary to hepatic steatosis is secondary to obesity 6. Diabetes mellitus Glucose level under control Sliding scale insulin Malnutrition Patient started eating small portion today VS,Fishbone, I+O VS, Fishbone, I+O Laboratory Tests 07/28/20 05:38 Vital Signs Date Time Temp Pulse Resp B/P (MAP) Pulse Ox O2 Delivery O2 Flow Rate FiO2 07/28/20 12:00 79 28 102/56 (71) 93 NIPPV (BIPAP/CPAP) 90 07/28/20 09:00 40.0 07/28/20 04:00 100.3 I&O- Last 24 Hours up to 6 AM 07/28/20 06:00 Intake Total 1720 ml Output Total 1100 ml Balance 620 ml AL NORTH DO Jul 28, 2020 16:47
[2020-07-28 17:07] LABS: CHLAMYDIA PNEUMONIAE IgM < 1:10 (< 1:10); CHLAMYDIA PSITTACI IgM < 1:10 (< 1:10); CHLAMYDIA TRACHOMATIS IgM < 1:10 (< 1:10); L PNEUMOPHILIA 1-6 IgG <1:128 (<1:128); L PNEUMOPHILIA 1-6 IgM < 1:16 (< 1:16); MYCOPLASMA PNEUMONIAE IgG 436 U/mL (0-99); MYCOPLASMA PNEUMONIAE IgM <770 U/mL (0-769)
[2020-07-28 17:07] LABS: HISTOPLASMA GAL'MANNAN AG UR <0.5 (<0.5 ng/mL)
--- NOTE | 2020-07-28 19:32 | ECGEPIP ---
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
[2020-07-28] MEDS: **NOTE PATIENT COMMENT** MISC XX SCH (20:27)
--- NOTE | 2020-07-28 21:10 | REP ---
INDICATION: PNA COMPARISON: None TECHNIQUE: Axial contrast enhanced images from the thoracic inlet to the upper abdomen with coronal and sagittal reformations using 75 ml Isovue 370 intravenous contrast material. This CT examination was performed using the following dose reduction techniques: Automated exposure control, adjustment of mA and/or kv according to the patient's size, and use of iterative reconstruction technique. FINDINGS: Large bilateral areas of consolidation primarily involving the upper lobes along with scattered areas of airspace disease, atelectasis and ground-glass opacities as well as small pleural effusions. Reactive adenopathy cannot be excluded. Thoracic aorta and heart/pericardium are normal. Pulmonary vasculature is grossly normal in caliber. No pneumothorax. Surrounding musculoskeletal structures are intact. IMPRESSION: Large areas of consolidation primarily involving the upper lobes with significant areas of scattered airspace disease, atelectasis and ground-glass opacities including small pleural effusions (left greater than right). Differential diagnosis includes but is not limited to pulmonary edema, multifocal pneumonia, alveolar proteinosis and hemorrhage as well as COVID-19 pulmonary disease must be considered. <Electronically signed by Jordi Noriega > 07/28/20 [id number]
--- NOTE | 2020-07-28 21:13 | REP ---
INDICATION: diffuse abd pain. COMPARISON: None TECHNIQUE: Axial contrast-enhanced images from the lung bases to the pubic symphysis using 100 cc Isovue 370 intravenous contrast material. . This CT examination was performed using the following dose reduction techniques: Automated exposure control, adjustment of mA and/or kv according to the patient's size, and the use of iterative reconstruction technique. FINDINGS: Liver demonstrates fatty infiltration without focal hepatic lesion. Spleen, pancreas, gallbladder, bilateral adrenal glands and kidneys are normal. The enteric system is without obstruction or acute inflammatory process. Pelvis demonstrates normal bladder and age-appropriate prostate/seminal vesicles. Evidence for prior appendectomy suggested. Sigmoid diverticula noted without acute diverticulitis. Abdominal aorta without aneurysm or dissection. No ascites. No free air. No adenopathy. Musculoskeletal structures are intact. Lung bases demonstrate severe bilateral consolidations and small pleural effusions IMPRESSION: Hepatosteatosis. No acute abdominopelvic pathology appreciated. <Electronically signed by Jordi Noriega > 07/28/20 [id number]
[2020-07-29] VITALS (8 sets, daily range): BP systolic 106–125; BP diastolic 58–73; O2SAT 90
[2020-07-29] MEDS: methylPREDNISolone 125MG 2ML VIAL IV SCH ×4 (00:26→23:23)
[2020-07-29] MEDS: PIPERACILLIN/TAZOBACTAM SOD 3.375 GM in D5W MINI-BAG PLUS 50 ML IV SCH ×4 (03:30→22:16)
[2020-07-29 05:27] LABS: BASO % 0.1 % (0.0-1.0); HEMATOCRIT 38.5 % (42.0-52.0); HEMOGLOBIN 12.5 g/dl (13.5-17.5); LYMPH % 8.8 % (24.0-44.0); MEAN CORPUSCULAR HEMOGLOBIN 27.7 pg (27.0-33.0); MEAN CORPUSCULAR HGB CONC 32.5 g/dl (32.0-36.5); MEAN CORPUSCULAR VOLUME 85.2 fl (80.0-96.0); MONO # 0.3 10^3/uL (0.0-0.8); MONO % 3.1 % (0.0-5.0); NEUTROPHILS # 9.7 10^3/uL (1.5-8.5); NEUTROPHILS % 87.2 % (36.0-66.0); PLATELET COUNT, AUTOMATED 254 10^3/uL (150-450); RED BLOOD COUNT 4.52 10^6/uL (4.30-6.10); WHITE BLOOD COUNT 11.1 10^3/uL (4.0-10.0)
[2020-07-29 05:51] LABS: BLOOD UREA NITROGEN 11 MG/DL (7-18); CALCIUM LEVEL 8.7 MG/DL (8.5-10.1); CARBON DIOXIDE LEVEL 29 MEQ/L (21-32); CHLORIDE LEVEL 100 MEQ/L (98-107); CREATININE FOR GFR 0.75 MG/DL (0.70-1.30); GLOMERULAR FILTRATION RATE > 60.0 (>60); GLUCOSE, FASTING 284 MG/DL (70-100); MAGNESIUM LEVEL 2.4 MG/DL (1.8-2.4); POTASSIUM SERUM 4.8 MEQ/L (3.5-5.1); SODIUM LEVEL 134 MEQ/L (136-145)
[2020-07-29] MEDS: HumaLOG INSULIN (NovoLOG) PER UNIT SC SCH ×4 (08:18→22:16)
[2020-07-29] MEDS: PANTOPRAZOLE 40MG TAB (PROTONIX) PO SCH (08:19)
[2020-07-29] MEDS: ENOXAPARIN 40MG/0.4ML SYRINGE (J1650 PER 10MG) SC SCH (08:19)
[2020-07-29] MEDS: LIDOCAINE 5% (LIDODERM) PATCH TD SCH (08:20)
--- NOTE | 2020-07-29 09:46 | IPN ---
PROGRESS NOTE DATE: 07/28/2020 Mickey seems to be in a better mood today. He states he is less short of breath even though he has had a fever up to 102 yesterday. His oxygen saturation requirement has decreased. He was on Vapotherm today and was able to get a CT chest. CT chest was reviewed with Dr. Little and Dr. Monge. There is dense consolidation in both lungs. No significant effusion, minimal in the left side. The consolidations are mostly involving the upper lobe with scattered airspace disease, atelectasis, and ground glass opacities. CT abdomen and pelvis showed splenomegaly, fatty liver, hepatosteatosis but no other pathology identified. SOCIAL HISTORY: Patient was able to give me a long social history today. He stated that he does have a vape but does not vape very often, a few times a week. He does not smoke cigarettes regularly. He did chew some tobacco. He does not use any drugs. He had a girlfriend for 2 years and they had twins, the twins are two boys that are 1-year-old, they are in the custody of the mother's stepmom. There were some issues with Child Protective Services. His mother, Giovanna Edouard, was on the phone with me today and she works full-time at [employer]. Mickey also stated that he was very healthy in high school, he graduated from [employer] in 2013 and was into wresting and football and was very healthy. He denies any exposure to farms. There was a leak in his apartment with some mold but that was fixed a while ago. 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 He is on Housing [employer] Urban [employer] ([employer]) subsidized housing and has food stamps. He has not worked on a regular basis. LABORATORY DATA: White count 11.4, hemoglobin 12.5, hematocrit 38.6, platelets 271, 76% neutrophils, 13% lymphocytes, 8% monocytes, ESR 44, sodium 139, potassium 4.1, chloride 106, bicarbonate 25, BUN 11, creatinine 0.71, glucose 176, calcium 8.5, magnesium 2, troponin less than 0.02, CRP on 07/26/2020 4.5, albumin 2.7, procalcitonin was last done on 07/24/2020 and was 0.15. PHYSICAL EXAMINATION: Temperature is 100.6, pulse 94, respirations 28, oxygen saturation 89% on 100% FiO2. Lungs: Diminished breath sounds at the bases but otherwise no wheezes or rhonchi. Abdomen: Soft, nontender, no hepatosplenomegaly. Extremities: No edema. Heart: Normal S1, S2, no murmurs. IMPRESSION: 1. Bilateral pneumonia with consolidation mostly involving the upper lobes. No significant effusion to drain. He had a recurrent fever despite being on doxycycline, currently day #7 and previous to that he received 3 days of levofloxacin, which is a total of 10 days of atypical pneumonia coverage. Patient will be treated for possible hospital-acquired pneumonia and antibiotics will be switched to IV Zosyn. Also, as differential would be an interstitial pneumonitis and therefore IV Solu-Medrol started at a dose of 60 mg every 8 hours. Case was discussed at length with Dr. Monge. I doubt the patient has fungal pneumonia, there has been no significant exposures. Urine histoplasma antigen was less than 0.5. Aspergillus galactomannan is pending. Cryptococcus antigen is pending. Beta-3 glucan is still pending. PLAN: Repeat complete blood count (CBC), C-reactive protein (CRP), procalcitonin, erythrocyte sedimentation (ESR) in the morning. IV Zosyn 3.375 grams every 6 hours. Solu-Medrol 60 mg IV every 8 hours. Urine Legionnaire antigen and pneumococcal antigens were also ordered and are still pending. QuantiFERON TB Gold is negative.
[2020-07-29 12:07] LABS: ASPERGILLUS GALACTOMANNAN AG 0.02 Index (0.00-0.49); CRYPTOCOCCUS ANTIGEN SER Negative (Negative); FUNGITELL, SERUM <31 pg/mL (<80)
--- NOTE | 2020-07-29 13:17 | IPNPDOC ---
Text Note Date of Service The patient was seen on 07/29/20. NOTE Subjective: Patient was on the BiPAP overnight, in the morning on Vapotherm. He states that he feels better today Objective: GENERAL APPEARANCE: NAD HEENT: no scleral icterus, no JVD, EOMI CARDIOVASCULAR: S1S2 LUNGS: Diminished lung sounds bilaterally ABDOMEN: soft & not tender w palpitation MUSCULOSKELETAL: no cyanosis, no swelling INTEGUMENT: no generalized pallor NEUROLOGICAL: cranial nerve function from 2-12 intact intact, follows commands, speech not dysarthric Plan Mr. Montilla is a 25-year-old male with type 2 diabetes mellitus with acute hypoxic respiratory failure secondary to pneumonia and splinting. He is also here with transaminitis. Discuss case with home/crit care, Dr. Ortega. We'll work up autoimmune hepatitis. Also currently pending hepatitis panel. Otherwise continue with levofloxacin. Would not need Augmentin at this time. His acute hypoxic respiratory failure is thought to be secondary to splinting. He is not taking deep breaths as seen in CXR and CT. Will try to control the pain better with scheduled and PRN oxycodone. Cautious with Tylenol due to liver damage. Cautious with NSAIDs as it will be needed for fevers 1. Acute hypoxic respiratory failure Most likely secondary to pneumonia of unknown etiology Await atypical culture results I discontinued opioids which definitely suppress respiratory drive I encouraged patient to do physical therapy 2. Pneumonia Patient has been treated with levofloxacin Pending atypical pneumonia workup HIV test negative and await QuantiFERON test, Aspergillus galactomannan negative, [id number] negative, histoplasma antigen negative CTA on 11/15/20 showed scattered segmental and subsegmental atelectasis and consolidation noted bilaterally COVID test negative Procalcitonin 0.13 on 07/19/20 Dr. Hsu recommended to add doxycycline. I discussed with Dr. Hsu patient's fever, she recommended to start Zosyn IV Repeated CT chest and abdomen/pelvis was done today. CT chest showed worsening bilateral consolidation. I discussed it with Dr. Monge, there is concern for AIP, steroids restarted Yesterday the dose of steroids were increased, it seems the patient has positive dynamics 3. Questionable COVID status Patient reports no COVID exposures He does report loss of taste Multiple COVID tests negative 4. Strep pharyngitis Resolved Patient was in the ED on July 11 and for fever Test positive for strep pharyngitis Was on Augmentin, but now on doxycycline Monoscreen negative EBV IgG positive, IgM negative 5. Transaminitis Elevated AST and ALT Possible EBV. Pending EBV serologies Autoimmune hepatitis initiated hepatitis panel negative Improved on 07/21/20. Could be secondary to hepatic steatosis is secondary to obesity 6. Diabetes mellitus Glucose level under control Sliding scale insulin Malnutrition Patient started eating small portion today VS,Fishbone, I+O VS, Fishbone, I+O Laboratory Tests 07/29/20 05:21 Vital Signs Date Time Temp Pulse Resp B/P (MAP) Pulse Ox O2 Delivery O2 Flow Rate FiO2 07/29/20 12:00 72 24 106/58 (74) 89 HVNI-Vapotherm 40.0 100 07/29/20 08:00 98.6 I&O- Last 24 Hours up to 6 AM 07/29/20 06:00 Intake Total 1570 ml Output Total 2025 ml Balance -455 ml AL NORTH DO Jul 29, 2020 13:17
[2020-07-29] MEDS ORDERED: LEVEMIR (INSULIN DETEMIR) 1 UNITS/0.01ML SC ONE (14:15)
--- NOTE | 2020-07-29 15:13 | CCN ---
CRITICAL CARE NOTE DATE: 07/29/2020 SUBJECTIVE: Mr. Montilla was seen and examined this morning. There have been no adverse events reported overnight. He continues to require a high level of oxygen. The patient was placed on BiLevel at night and on Vapotherm during the day. The patient still does state that he is somewhat short of breath. He states that he has some pain on deep inspiration, which has been there since his presentation. Additionally, the patient does not participate much in his care. He has been encouraged to ambulate and at least sit in the chair. There have been no further fevers overnight. His T-max was 98.6. OBJECTIVE: VITAL SIGNS: Temperature 98.6, pulse 92, respiratory rate 22, pulse oximetry 88% on Vapotherm with FiO2 of 90. GENERAL: The patient is awake, alert, and oriented. He does not appear in any acute distress, although he is critically ill. He is sitting in his chair. He is comfortable. HEENT: Atraumatic/normocephalic. Eyes are nonicteric. Trachea is midline. Mucous membranes are pink and moist. CARDIOVASCULAR: There is normal S1, S2. There is a regular rate and rhythm. No clicks, rubs, or murmurs. PULMONARY: There are somewhat decreased breath sounds throughout. There is overlying rhonchi. There are no wheezes or rales. ABDOMEN: Soft, nondistended, and nontender. No rebound tenderness or guarding. Normoactive bowel sounds. EXTREMITIES: No edema. Full and equal pulses bilateral upper and lower extremities. NEUROLOGIC: No focal neurologic deficits. PSYCHIATRIC: Mood and affect appear appropriate. LABORATORY DATA: Hematology: White blood cell 11.1, hemoglobin 12.5, hematocrit 38.5, platelet count 254,000. Chemistries: Sodium 134, potassium 4.8, chloride 100, CO2 of 29, BUN 11, creatinine 0.75, fasting glucose 284, calcium 8.7, magnesium 2.4. TB QuantiFERON Gold test negative. Beta 1, 3D Glucan negative. Urine histoplasma antigen negative. Cryptococcus antigen negative. Urine Legionella antigen negative. Streptococcus pneumoniae antigen negative as well. IMAGING: Obtained on 07/28/2020, demonstrating once again large areas of consolidation in the upper lobes with significant scattered airspace disease, atelectasis, and ground-glass opacities, as well as some small pleural effusions. Findings might be consistent with an acute interstitial pneumonic process. ASSESSMENT AND PLAN: Mr. Montilla is a 25-year-old male with a history of type 2 diabetes mellitus and gastroesophageal reflux disease, who presented to [facility] Emergency Department with complaint of shortness of breath and was found to be hypoxic. He had developed hypoxemic respiratory failure requiring BiLevel. The patient has been evaluated for COVID, which has been negative. Additionally, the patient has been evaluated for pulmonary embolism, which once again has been negative. He continues to be hypoxic. Differential includes atypical pneumonia versus an acute interstitial pneumatic process. 1. Hypoxemic respiratory failure. The patient continues to be hypoxemic. He is stable. He is requiring high levels of FiO2 upwards of 90. The patient is on Vapotherm during the day. He is on BiPAP with sleeping. His hypoxia once again is multifactorial secondary to possible atypical pneumonia versus acute interstitial pneumonia. The patient continues to complain of some pain on deep inspiration. He had a chest CT ordered yesterday, which did demonstrate multifocal consolidations mostly in the upper lung zones. There were ground- glass opacities primarily in the upper lobes, consistent with an acute interstitial pneumonia. The patient was started on Solu-Medrol yesterday and will continue. Current recommendations are to continue the patient on Vapotherm during the day. The patient needs to continue to work with physical therapy and mobilize himself, as this will help with improving his oxygenation. Additionally, the patient will be continued on steroids. He is also on IV Zosyn started by the infectious disease team yesterday. 2. Atypical pneumonia versus acute interstitial pneumonia. As stated previously, the patient has what appeared to be an atypical pneumonia versus acute interstitial pneumonia. He is receiving IV Zosyn and being followed by infectious disease and their recommendations are appreciated. Additionally, the patient has been started on Solu-Medrol for acute interstitial pneumonia. If this truly is, we should see some resolution within 24-48 hours after starting steroids. 3. Diabetes mellitus type 2 with hyperglycemia. The patient has some hyperglycemia likely secondary to the steroid use. Will need to adjust insulin as necessary. 4. Deep vein thrombosis prophylaxis. The patient is currently on Lovenox. 5. Ulcer prophylaxis. The patient is currently on Protonix. DISPOSITION: The patient is critically ill. At this time, he has shown some improvement clinically, however. CRITICAL CARE TIME: 45 minutes spent at bedside with critical care time. Dr. Monge; I participated in the above documented critical care and coordination with other providers. I reviewed his CT images with radiology and ID. There is some basilar clearing but the upper lobes are extensively involved with GGOs. This makes me concerned for an inhalational injury and as the patient does admit to vaping we may be looking at THALIA, steroids in higher dose have been started. ID will adjust the antibiotics and await fungal markers. MTDD
[2020-07-29 17:12] LABS: BODY FLUID CULTURE Not indicated. (.); LEGIONELLA ANTIGEN URINE Negative (Negative); ORGANISM ID Not indicated. (.); SPECIMEN SOURCE Urine (.); URINE STREP PNEUMONIAE ANTIGEN Negative (Negative)
[2020-07-29] MEDS: **NOTE PATIENT COMMENT** MISC XX SCH (21:00)
[2020-07-29] MEDS ORDERED: LEVEMIR (INSULIN DETEMIR) 1 UNITS/0.01ML SC SCH (21:00)
[2020-07-30] VITALS: BP 167/97
[2020-07-30] MEDS: PIPERACILLIN/TAZOBACTAM SOD 3.375 GM in D5W MINI-BAG PLUS 50 ML IV SCH ×4 (03:58→20:43)
[2020-07-30 04:00] VITALS: BP 132/79
[2020-07-30 04:13] LABS: RED BLOOD COUNT 4.39 10^6/uL (4.30-6.10); WHITE BLOOD COUNT 17.9 10^3/uL (4.0-10.0)
[2020-07-30 04:14] LABS: BASO % 0.1 % (0.0-1.0); HEMATOCRIT 37.1 % (42.0-52.0); HEMOGLOBIN 11.9 g/dl (13.5-17.5); LYMPH # 1.2 10^3/uL (1.5-5.0); LYMPH % 6.5 % (24.0-44.0); MEAN CORPUSCULAR HEMOGLOBIN 27.1 pg (27.0-33.0); MEAN CORPUSCULAR HGB CONC 32.1 g/dl (32.0-36.5); MEAN CORPUSCULAR VOLUME 84.5 fl (80.0-96.0); MONO # 0.7 10^3/uL (0.0-0.8); NEUTROPHILS # 15.9 10^3/uL (1.5-8.5); NEUTROPHILS % 88.8 % (36.0-66.0); PLATELET COUNT, AUTOMATED 311 10^3/uL (150-450)
[2020-07-30 04:45] LABS: BLOOD UREA NITROGEN 20 MG/DL (7-18); CALCIUM LEVEL 8.5 MG/DL (8.5-10.1); CARBON DIOXIDE LEVEL 27 MEQ/L (21-32); CHLORIDE LEVEL 103 MEQ/L (98-107); CREATININE FOR GFR 0.81 MG/DL (0.70-1.30); GLOMERULAR FILTRATION RATE > 60.0 (>60); GLUCOSE, FASTING 387 MG/DL (70-100); MAGNESIUM LEVEL 2.5 MG/DL (1.8-2.4); POTASSIUM SERUM 4.8 MEQ/L (3.5-5.1); SODIUM LEVEL 138 MEQ/L (136-145)
[2020-07-30 07:52] VITALS: BP 124/68
[2020-07-30] MEDS ORDERED: LEVEMIR (INSULIN DETEMIR) 1 UNITS/0.01ML SC SCH ×2 (09:00→21:00)
[2020-07-30] MEDS: PANTOPRAZOLE 40MG TAB (PROTONIX) PO SCH (09:40)
[2020-07-30] MEDS: HumaLOG INSULIN (NovoLOG) PER UNIT SC SCH ×4 (09:41→20:45)
[2020-07-30] MEDS: ENOXAPARIN 40MG/0.4ML SYRINGE (J1650 PER 10MG) SC SCH (09:42)
[2020-07-30] MEDS: methylPREDNISolone 125MG 2ML VIAL IV SCH ×2 (09:42→15:57)
[2020-07-30] MEDS: LIDOCAINE 5% (LIDODERM) PATCH TD SCH (09:42)
--- NOTE | 2020-07-30 10:55 | ECHO ---
DATE OF PROCEDURE: 07/28/2020 Age: 25 Gender: Male Height: 68 inches Weight: 205 pounds Body surface area: 2.07 m2 PATIENT LOCATION: Inpatient PCU, Room 3222. REFERRING PHYSICIAN: Rober Martinez DO. INDICATION: Sepsis. MEASUREMENTS: 2D Measurements: RV 3.9 cm LV 4.6 cm Septum 1.1 cm Posterior wall 1.1 cm Aortic Root 3.6 cm LA 3.4 cm LVEF 75% Doppler Measurements: AV 1.4 m/s LVOT 1.0 m/s LVOT diameter 2.0 cm MV-E 63, A 74, E/A ratio 0.9 Early mitral deceleration time 185 msec E prime medial 8.2, A prime medial 10, E prime lateral 10 PV 1.0 m/s Pulmonary artery acceleration time 114 msec RVSP 32 mmHg IVC 1.8 cm COMMENTS: Normal sinus rhythm without intraventricular conduction disturbance. M-mode and two-dimensional echocardiography was performed with pulse, continuous wave, color flow, and tissue Doppler studies. Normal left ventricular size, wall thickness, and hyperkinetic wall motion. Normal left atrial size and Doppler assessment of LV diastolic function and estimated mean left atrial pressure. Normal right heart chamber sizes and motion with mild pulmonary hypertension. Normal IVC size and collapse against an elevated central venous pressure. Normal aortic dimensions. Normal appearing and functioning aortic valve. Normal appearing and functioning mitral valve. Normal appearing tricuspid valve with very mild insufficiency (physiologic). No apparent intracardiac mass. Miniscule (physiologic) pericardial effusion. MTDD
[2020-07-30 12:18] VITALS: BP 125/73
--- NOTE | 2020-07-30 13:25 | IPNPDOC ---
Text Note Date of Service The patient was seen on 07/30/20. NOTE Subjective: Patient was on the BiPAP overnight, in the morning on Vapotherm. Patient is able to eat today. Objective: GENERAL APPEARANCE: NAD HEENT: no scleral icterus, no JVD, EOMI CARDIOVASCULAR: S1S2 LUNGS: Diminished lung sounds bilaterally ABDOMEN: soft & not tender w palpitation MUSCULOSKELETAL: no cyanosis, no swelling INTEGUMENT: no generalized pallor NEUROLOGICAL: cranial nerve function from 2-12 intact intact, follows commands, speech not dysarthric Plan Mr. Montilla is a 25-year-old male with type 2 diabetes mellitus with acute hypoxic respiratory failure secondary to pneumonia and splinting. He is also here with transaminitis. Patient developed acute respiratory failure secondary most likely to acute interstitial pneumonia. Treatment with steroids started 1. Acute hypoxic respiratory failure Most likely secondary to pneumonia of unknown etiology - atypical culture results negative I discontinued opioids which definitely suppress respiratory drive I encouraged patient to do physical therapy 2. Pneumonia Patient has been treated with levofloxacin HIV test negative and negative QuantiFERON test, Aspergillus galactomannan negative, [id number] negative, histoplasma antigen negative CTA on 11/15/20 showed scattered segmental and subsegmental atelectasis and consolidation noted bilaterally COVID test negative Procalcitonin 0.13 on 07/19/20 Dr. Hsu recommended to add doxycycline. However on 07/28/20 patient developed fever I discussed with Dr. Hsu patient's fever, she recommended to start Zosyn IV On 07/28/20 CT chest showed worsening bilateral consolidation. I discussed it with Dr. Monge, there is concern for AIP, steroids restarted, the dose of steroids were increased, it seems the patient has positive dynamics 3. Questionable COVID status Patient reports no COVID exposures He does report loss of taste Multiple COVID tests negative 4. Strep pharyngitis Resolved Patient was in the ED on July 11 and for fever Test positive for strep pharyngitis Was on Augmentin, but now on doxycycline Monoscreen negative EBV IgG positive, IgM negative 5. Transaminitis Elevated AST and ALT Possible EBV. Pending EBV serologies hepatitis panel negative Improved on 07/21/20. Could be secondary to hepatic steatosis is secondary to obe sity 6. Diabetes mellitus Glucose level is difficult to control due to aggressive steroids therapy The dose of detemir was increased. He received 20 units detemir in the morning. I increased the dose of detemir to 30 twice a day Sliding scale insulin Malnutrition Patient started eating Diabetes diet VS,Fishbone, I+O VS, Fishbone, I+O Laboratory Tests 07/30/20 04:04 Vital Signs Date Time Temp Pulse Resp B/P (MAP) Pulse Ox O2 Delivery O2 Flow Rate FiO2 07/30/20 12:18 97.8 53 24 125/73 (90) 91 Ventilator 90 07/29/20 21:00 40.0 I&O- Last 24 Hours up to 6 AM 07/30/20 06:00 Intake Total 2570 ml Output Total 3055 ml Balance -485 ml AL NORTH DO Jul 30, 2020 13:25
--- NOTE | 2020-07-30 14:44 | CCN ---
CRITICAL CARE NOTE DATE: 07/30/2020 SUBJECTIVE: Mr. Montilla was seen and examined this morning. He continues to be requiring high levels of oxygen. Apparently, yesterday he was transitioned to VapoTherm, however, had desaturated to the mid 80s and was placed back on bilevel. At this current time, the patient is encouraged to move to the chair and is placed on VapoTherm for his meals, however, placed back on bilevel after an hour. Patient himself states that he actually feels better. He denies any chest pain. He does still complain of some shortness of breath and overall fatigue. Other than that, no other adverse effects have been reported. OBJECTIVE: VITAL SIGNS: Temperature 98.2, pulse 56, respiratory rate 30, blood pressure 132/79, pulse oximetry 89% on bilevel with an FiO2 of 90. GENERAL: Patient is awake, alert, and oriented. He does not appear in any acute distress, although he is critically ill. He is currently sitting up in bed. He does appear somewhat comfortable. HEENT: Atraumatic, normocephalic. Eyes anicteric. Trachea is midline. BiPAP mask is in place. CARDIOVASCULAR: There is normal S1, S2, regular rate and rhythm. No clicks, rubs, or murmurs auscultated. PULMONARY: He has continued decreased breath sounds throughout. There is some improvement in the rhonchi. There are no wheezes or rales noted. He does appear slightly more tachypneic this morning. ABDOMEN: Soft, nondistended, nontender. No rebound tenderness or guarding. Normoactive bowel sounds throughout. EXTREMITIES: No edema in bilateral lower extremities. There are full and equal pulses in upper and lower extremities. NEUROLOGIC: No focal neurologic deficits. PSYCHIATRIC: Patient's mood and affect appear appropriate. LABORATORY DATA: Hematology: White blood cells 17.9, hemoglobin 11.9, hematocrit 37.1, platelet count 311. Chemistries: Sodium 138, potassium 4.8, chloride 103, CO2 of 27, BUN 20, creatinine 0.81, fasting glucose 387, calcium 8.5, magnesium 2.5. ASSESSMENT AND PLAN: Mr. Montilla is a 25-year-old male with a history of type 2 diabetes mellitus and gastroesophageal reflux disease who presented to [facility] Emergency Department with a complaint of shortness of breath and subsequently found to be hypoxemic. He developed a hypoxemic respiratory failure requiring bilevel. Patient has been evaluated for COVID multiple times, which have all been negative. Additionally, the patient has been evaluated for pulmonary embolism, which once again was negative. He continues to be hypoxic, requiring FiO2s of upward of 90. His differential includes atypical pneumonia verus acute interstitial pneumatic process. 1. Hypoxemic respiratory failure. Patient continues to be hypoxemic. He is overall stable. He is requiring FiO2 of 90. Patient was transitioned to VapoTherm yesterday with BiPAP at night; however, on VapoTherm he was noted to desaturate to the mid 80s. He has been placed back on bilevel. He is on VapoTherm only for meals. The patient did have a CT previously, which demonstrated multifocal consolidations, mostly in the upper lobes, consistent with a possible acute interstitial pneumonia. Current recommendations are to continue Solu-Medrol. He is currently on 80 mg every 8 hours. He does have an elevated leukocytosis today, which is likely secondary to his steroids. Additionally, the patient is continued on Zosyn for infectious disease recommendations. Will continue. Patient is also working with physical therapy, as mobilization will help him improve from a deconditioned standpoint. 2. Atypical pneumonia versus acute interstitial pneumonia. As stated previously, patient has what appears to be atypical pneumonia versus acute interstitial pneumonia. He does have consolidations that are primarily in the upper lobe regions. He has been started on Solu-Medrol. There was improvement yesterday. He was noted to have some desaturations today. Will continue Solu-Medrol for now and see if he has improvement in the next 24-48 hours. 3. Type 2 diabetes mellitus with hyperglycemia. Patient has increase in hyperglycemia likely secondary to the high-dose steroids that he is on. Primary team is managing his insulin regimen, which will be adjusted accordingly. 4. Deep venous thrombosis prophylaxis. Patient is continued on Lovenox currently. 5 Ulcer prophylaxis. Patient is currently on Protonix 40 mg daily. DISPOSITION: Patient does remain critically ill at this time. He has shown some mild improvements clinically. At this time we will continue bilevel and steroids. Dr. Monge; I participated in the provision of critical care and coordination as outlined above. He is clinically improved supporting the possibility of an autoimmune inhalational related injury. We will continue close monitoring and intensive care. CRITICAL CARE TIME: 45 minutes exclusive of procedure time LESLIE
[2020-07-30 16:05] VITALS: BP 116/57
[2020-07-30] MEDS: **NOTE PATIENT COMMENT** MISC XX SCH (20:46)
[2020-07-30 21:00] VITALS: BP 121/72
[2020-07-31] VITALS (7 sets, daily range): BP systolic 110–125; BP diastolic 59–76; O2SAT 90–93
[2020-07-31] MEDS: methylPREDNISolone 125MG 2ML VIAL IV SCH ×4 (00:50→23:30)
[2020-07-31] MEDS: PIPERACILLIN/TAZOBACTAM SOD 3.375 GM in D5W MINI-BAG PLUS 50 ML IV SCH ×4 (03:57→20:48)
[2020-07-31 05:27] LABS: BASO % 0.1 % (0.0-1.0); HEMOGLOBIN 12.3 g/dl (13.5-17.5); LYMPH # 1.2 10^3/uL (1.5-5.0); LYMPH % 7.7 % (24.0-44.0); MEAN CORPUSCULAR HEMOGLOBIN 27.7 pg (27.0-33.0); MEAN CORPUSCULAR HGB CONC 32.4 g/dl (32.0-36.5); MEAN CORPUSCULAR VOLUME 85.6 fl (80.0-96.0); MONO # 0.7 10^3/uL (0.0-0.8); MONO % 4.1 % (0.0-5.0); NEUTROPHILS # 14.1 10^3/uL (1.5-8.5); NEUTROPHILS % 87.2 % (36.0-66.0); PLATELET COUNT, AUTOMATED 335 10^3/uL (150-450); RED BLOOD COUNT 4.44 10^6/uL (4.30-6.10); WHITE BLOOD COUNT 16.2 10^3/uL (4.0-10.0)
[2020-07-31 05:58] LABS: ERYTHROCYTE SEDIMENTATION RATE 56 mm/hr (0-15)
[2020-07-31 06:01] LABS: BLOOD UREA NITROGEN 22 MG/DL (7-18); C REACTIVE PROTEIN QUANTITATIV 2.38 MG/DL (0.00-0.30); CARBON DIOXIDE LEVEL 28 MEQ/L (21-32); CHLORIDE LEVEL 100 MEQ/L (98-107); CREATININE FOR GFR 0.88 MG/DL (0.70-1.30); GLOMERULAR FILTRATION RATE > 60.0 (>60); GLUCOSE, FASTING 321 MG/DL (70-100); MAGNESIUM LEVEL 2.5 MG/DL (1.8-2.4); POTASSIUM SERUM 4.6 MEQ/L (3.5-5.1); SODIUM LEVEL 134 MEQ/L (136-145)
--- NOTE | 2020-07-31 08:17 | REP ---
INDICATION: Hypoxia/multifocal pneumonia COMPARISON: 07/27/2020 TECHNIQUE: Portable AP view of the chest FINDINGS: Bilateral pulmonary opacities (left greater than right) are similar to prior examination with suggestions for minimal improvement. No new acute consolidation. No effusion. No pneumothorax. Cardiac silhouette within normal limits and stable. Skeletal structures intact. IMPRESSION: Bilateral airspace disease with minimal improvement suggested. <Electronically signed by Jordi Noriega > 07/31/20 [id number]
[2020-07-31] MEDS: LIDOCAINE 5% (LIDODERM) PATCH TD SCH (09:10)
[2020-07-31] MEDS: PANTOPRAZOLE 40MG TAB (PROTONIX) PO SCH (09:11)
[2020-07-31] MEDS: HumaLOG INSULIN (NovoLOG) PER UNIT SC SCH ×4 (09:11→20:47)
[2020-07-31] MEDS: LEVEMIR (INSULIN DETEMIR) 1 UNITS/0.01ML SC SCH ×2 (09:12→20:48)
[2020-07-31] MEDS: ENOXAPARIN 40MG/0.4ML SYRINGE (J1650 PER 10MG) SC SCH (09:12)
--- NOTE | 2020-07-31 11:21 | IPN ---
PULMONARY CRITICAL CARE PROGRESS NOTE DATE: 07/31/2020 SUBJECTIVE: I attended Mickey Montilla. Patient was admitted and I examined chart. I have spoken with the nurse at the bedside. He has been able to be weaned off BiPAP and is mainly on Vapotherm this morning. He said he feels much better. He is less short of breath. His chest x-ray shows significant improvement compared to a film from several days ago. T-max overnight 97.2, blood pressure one-teens to 120's, heart rate generally in the 50's with a sinus mechanism, respiratory rate 18 to 22 without accessory muscle use. White blood cell count 16.2, hemoglobin 12.3, platelet count 335,000. Sodium 134, potassium 4.6, chloride 102, CO2 28, BUN 22, creatinine 0.88. Chest x-ray as outlined above. PHYSICAL EXAMINATION: GENERAL: Sitting in the bedside chair. He is awake, alert and appropriate, and quite comfortable. HEENT: Pupils react. Sclerae clear. Trachea midline. CHEST: Shows diminished but reasonably symmetric expansion. No convincing egophony today. No crackles or rubs. CARDIAC: Regular with no gallop. Peripheral pulses palpable. No edema. ABDOMEN: Soft, nontender with active bowel sounds. No convincing organomegaly or masses. EXTREMITIES: No cyanosis or clubbing. NEUROLOGIC: He is awake, alert and appropriate. PSYCH: Normal mood and affect. MEDICATION LIST: Has been reviewed. IMPRESSION: 1. Hypoxemic respiratory failure. 2. Suspect acute interstitial pneumonitis; question secondary to vaping. 3. Recent bacterial pneumonia. RECOMMENDATIONS: At this point, he will continue his current antimicrobials. I do believe the steroids have made a significant improvement in his status, and we will keep him on his current dose of I.V. steroids for now. I had a very lengthy discussion with him regarding the need for increased strength and conditioning. He says his goal is to be out of the hospital by mid next week and certainly if he pushes himself, this is quite possibly obtainable. We will continue his current regimen. He is tolerating a regular diet. Further recommendations will be made in the progress record as new information becomes available.
--- NOTE | 2020-07-31 15:58 | IPNPDOC ---
Text Note Date of Service The patient was seen on 07/31/20. NOTE Subjective: Patient stated that he is doing better today, he was on Vapotherm in the morning Objective: GENERAL APPEARANCE: NAD HEENT: no scleral icterus, no JVD, EOMI CARDIOVASCULAR: S1S2 LUNGS: Diminished lung sounds bilaterally ABDOMEN: soft & not tender w palpitation MUSCULOSKELETAL: no cyanosis, no swelling INTEGUMENT: no generalized pallor NEUROLOGICAL: cranial nerve function from 2-12 intact intact, follows commands, speech not dysarthric Plan Mr. Montilla is a 25-year-old male with type 2 diabetes mellitus with acute hypoxic respiratory failure secondary to pneumonia and splinting. He is also here with transaminitis. Patient developed acute respiratory failure secondary most likely to acute interstitial pneumonia. Treatment with steroids started 1. Acute hypoxic respiratory failure Most likely secondary to pneumonia of unknown etiology - atypical culture results negative I discontinued opioids which definitely suppress respiratory drive I encouraged patient to do physical therapy Chest x-ray on 07/31/20 showed improvement 2. Pneumonia Patient has been treated with levofloxacin HIV test negative and negative QuantiFERON test, Aspergillus galactomannan negative, [id number]-4-wxesyg negative, histoplasma antigen negative CTA on 11/15/20 showed scattered segmental and subsegmental atelectasis and consolidation noted bilaterally COVID test negative Procalcitonin 0.13 on 07/19/20 Dr. Hsu recommended to add doxycycline. However on 07/28/20 patient developed fever I discussed with Dr. Hsu patient's fever, she recommended to start Zosyn IV On 07/28/20 CT chest showed worsening bilateral consolidation. I discussed it with Dr. Monge, there is concern for AIP, steroids restarted, the dose of steroids were increased, it seems the patient has positive dynamics 3. Questionable COVID status Patient reports no COVID exposures He does report loss of taste Multiple COVID tests negative 4. Strep pharyngitis Resolved Patient was in the ED on July 11 and for fever Test positive for strep pharyngitis Was on Augmentin, but now on doxycycline Monoscreen negative EBV IgG positive, IgM negative 5. Transaminitis Elevated AST and ALT Possible EBV. Pending EBV serologies hepatitis panel negative Improved on 07/21/20. Could be secondary to hepatic steatosis is secondary to obesity 6. Diabetes mellitus Glucose level is difficult to control due to aggressive steroids therapy The dose of detemir was increased. He received 20 units detemir in the morning. I increased the dose of detemir to 40 twice a day Sliding scale insulin Malnutrition Patient started eating Diabetes diet VS,Josephe, I+O VS, Fishbone, I+O Laboratory Tests 07/31/20 04:56 Vital Signs Date Time Temp Pulse Resp B/P (MAP) Pulse Ox O2 Delivery O2 Flow Rate FiO2 07/31/20 14:44 92 Nasal Cannula 40.0 80 07/31/20 12:00 97.2 68 92 110/59 (76) I&O- Last 24 Hours up to 6 AM 07/31/20 05:59 Intake Total 2080 ml Output Total 2745 ml Balance -665 ml AL NORTH DO Jul 31, 2020 15:58
[2020-07-31] MEDS: BENZONATATE 100 MG CAP PO PRN (20:47)
[2020-07-31] MEDS: **NOTE PATIENT COMMENT** MISC XX SCH (20:48)
[2020-08-01] VITALS (9 sets, daily range): BP systolic 112–121; BP diastolic 57–74
[2020-08-01] MEDS: PIPERACILLIN/TAZOBACTAM SOD 3.375 GM in D5W MINI-BAG PLUS 50 ML IV SCH ×4 (03:35→21:44)
[2020-08-01] MEDS: ENOXAPARIN 40MG/0.4ML SYRINGE (J1650 PER 10MG) SC SCH (07:45)
[2020-08-01] MEDS: LEVEMIR (INSULIN DETEMIR) 1 UNITS/0.01ML SC SCH (07:45)
[2020-08-01] MEDS: methylPREDNISolone 125MG 2ML VIAL IV SCH ×3 (07:46→23:08)
[2020-08-01] MEDS: PANTOPRAZOLE 40MG TAB (PROTONIX) PO SCH (07:46)
[2020-08-01] MEDS: LIDOCAINE 5% (LIDODERM) PATCH TD SCH (07:47)
[2020-08-01] MEDS: HumaLOG INSULIN (NovoLOG) PER UNIT SC SCH ×4 (08:10→21:44)
[2020-08-01 09:41] LABS: BASO % 0.1 % (0.0-1.0); HEMATOCRIT 39.3 % (42.0-52.0); HEMOGLOBIN 13.1 g/dl (13.5-17.5); LYMPH # 1.5 10^3/uL (1.5-5.0); LYMPH % 9.6 % (24.0-44.0); MEAN CORPUSCULAR HEMOGLOBIN 27.9 pg (27.0-33.0); MEAN CORPUSCULAR HGB CONC 33.3 g/dl (32.0-36.5); MEAN CORPUSCULAR VOLUME 83.6 fl (80.0-96.0); MONO # 0.8 10^3/uL (0.0-0.8); NEUTROPHILS # 13.4 10^3/uL (1.5-8.5); NEUTROPHILS % 84.3 % (36.0-66.0); PLATELET COUNT, AUTOMATED 375 10^3/uL (150-450); WHITE BLOOD COUNT 15.9 10^3/uL (4.0-10.0)
[2020-08-01 10:04] LABS: ALT/SGPT 129 U/L (12-78); BILIRUBIN,TOTAL 0.6 MG/DL (0.2-1.0); BLOOD UREA NITROGEN 21 MG/DL (7-18); CARBON DIOXIDE LEVEL 28 MEQ/L (21-32); CHLORIDE LEVEL 97 MEQ/L (98-107); CREATININE FOR GFR 0.91 MG/DL (0.70-1.30); GLOMERULAR FILTRATION RATE > 60.0 (>60); GLUCOSE, FASTING 301 MG/DL (70-100); MAGNESIUM LEVEL 2.6 MG/DL (1.8-2.4); POTASSIUM SERUM 4.9 MEQ/L (3.5-5.1); SODIUM LEVEL 134 MEQ/L (136-145); TOTAL PROTEIN 7.1 GM/DL (6.4-8.2)
--- NOTE | 2020-08-01 13:06 | IPNPDOC ---
Text Note Date of Service The patient was seen on 08/01/20. NOTE Subjective: Patient continues improving. He has a good appetite. Objective: GENERAL APPEARANCE: NAD HEENT: no scleral icterus, no JVD, EOMI CARDIOVASCULAR: S1S2 LUNGS: Diminished lung sounds bilaterally ABDOMEN: soft & not tender w palpitation MUSCULOSKELETAL: no cyanosis, no swelling INTEGUMENT: no generalized pallor NEUROLOGICAL: cranial nerve function from 2-12 intact intact, follows commands, speech not dysarthric Plan Mr. Montilla is a 25-year-old male with type 2 diabetes mellitus with acute hypoxic respiratory failure secondary to pneumonia and splinting. He is also here with transaminitis. Patient developed acute respiratory failure secondary most likely to acute interstitial pneumonia. Treatment with steroids started 1. Acute hypoxic respiratory failure Most likely secondary to pneumonia of unknown etiology - atypical culture results negative I discontinued opioids which definitely suppress respiratory drive I encouraged patient to do physical therapy Chest x-ray on 07/31/20 showed improvement 2. Pneumonia Patient has been treated with levofloxacin HIV test negative and negative QuantiFERON test, Aspergillus galactomannan negative, [id number] negative, histoplasma antigen negative CTA on 11/15/20 showed scattered segmental and subsegmental atelectasis and consolidation noted bilaterally COVID test negative Procalcitonin 0.13 on 07/19/20 Dr. Hsu recommended to add doxycycline. However on 07/28/20 patient developed fever I discussed with Dr. Hsu patient's fever, she recommended to start Zosyn IV On 07/28/20 CT chest showed worsening bilateral consolidation. I discussed it with Dr. Monge, there is concern for AIP, steroids restarted, the dose of steroids were increased, it seems the patient has positive dynamics 3. Questionable COVID status Patient reports no COVID exposures He does report loss of taste Multiple COVID tests negative 4. Strep pharyngitis Resolved Patient was in the ED on July 11 and for fever Test positive for strep pharyngitis Was on Augmentin, but now on doxycycline Monoscreen negative EBV IgG positive, IgM negative 5. Transaminitis Elevated AST and ALT Possible EBV. Pending EBV serologies hepatitis panel negative Improved on 07/21/20. Could be secondary to hepatic steatosis is secondary to obes ity 6. Diabetes mellitus Glucose level is difficult to control due to aggressive steroids therapy Patient blood glucose level still not optimally controlled. I will increase insulin treatment to 60 twice a day Sliding scale insulin Malnutrition Patient started eating Diabetes diet VS,Fishbone, I+O VS, Fishbone, I+O Laboratory Tests 08/01/20 09:08 Vital Signs Date Time Temp Pulse Resp B/P (MAP) Pulse Ox O2 Delivery O2 Flow Rate FiO2 08/01/20 12:00 97.1 73 18 120/59 (79) 85 HVNI-Vapotherm 40.0 70 I&O- Last 24 Hours up to 6 AM 08/01/20 05:59 Intake Total 2335 ml Output Total 2150 ml Balance 185 ml AL NORTH DO Aug 01, 2020 13:05
[2020-08-01] MEDS ORDERED: LEVEMIR (INSULIN DETEMIR) 1 UNITS/0.01ML SC SCH ×2 (21:00)
[2020-08-01] MEDS: **NOTE PATIENT COMMENT** MISC XX SCH (21:44)
[2020-08-02] VITALS (8 sets, daily range): BP systolic 104–118; BP diastolic 56–67
[2020-08-02] MEDS: PIPERACILLIN/TAZOBACTAM SOD 3.375 GM in D5W MINI-BAG PLUS 50 ML IV SCH ×4 (03:55→20:57)
[2020-08-02 06:15] LABS: BASO % 0.1 % (0.0-1.0); HEMATOCRIT 39.8 % (42.0-52.0); HEMOGLOBIN 13.1 g/dl (13.5-17.5); LYMPH # 1.7 10^3/uL (1.5-5.0); LYMPH % 8.6 % (24.0-44.0); MEAN CORPUSCULAR HEMOGLOBIN 27.9 pg (27.0-33.0); MEAN CORPUSCULAR HGB CONC 32.9 g/dl (32.0-36.5); MEAN CORPUSCULAR VOLUME 84.7 fl (80.0-96.0); MONO # 1.2 10^3/uL (0.0-0.8); MONO % 6.1 % (0.0-5.0); NEUTROPHILS # 16.1 10^3/uL (1.5-8.5); NEUTROPHILS % 84.4 % (36.0-66.0); PLATELET COUNT, AUTOMATED 347 10^3/uL (150-450); WHITE BLOOD COUNT 19.1 10^3/uL (4.0-10.0)
[2020-08-02 06:38] LABS: ALBUMIN 2.9 GM/DL (3.2-5.2); ALT/SGPT 180 U/L (12-78); BILIRUBIN,TOTAL 0.8 MG/DL (0.2-1.0); BLOOD UREA NITROGEN 17 MG/DL (7-18); CALCIUM LEVEL 9.2 MG/DL (8.5-10.1); CARBON DIOXIDE LEVEL 30 MEQ/L (21-32); CHLORIDE LEVEL 98 MEQ/L (98-107); CREATININE FOR GFR 0.84 MG/DL (0.70-1.30); GLOMERULAR FILTRATION RATE > 60.0 (>60); GLUCOSE, FASTING 208 MG/DL (70-100); MAGNESIUM LEVEL 2.4 MG/DL (1.8-2.4); POTASSIUM SERUM 4.1 MEQ/L (3.5-5.1); SODIUM LEVEL 134 MEQ/L (136-145); TOTAL PROTEIN 6.7 GM/DL (6.4-8.2)
[2020-08-02] MEDS: PANTOPRAZOLE 40MG TAB (PROTONIX) PO SCH (07:40)
[2020-08-02] MEDS: HumaLOG INSULIN (NovoLOG) PER UNIT SC SCH ×4 (07:40→20:58)
[2020-08-02] MEDS: ENOXAPARIN 40MG/0.4ML SYRINGE (J1650 PER 10MG) SC SCH (07:40)
[2020-08-02] MEDS: methylPREDNISolone 125MG 2ML VIAL IV SCH ×3 (07:40→23:42)
[2020-08-02] MEDS: LIDOCAINE 5% (LIDODERM) PATCH TD SCH (07:41)
[2020-08-02] MEDS: LEVEMIR (INSULIN DETEMIR) 1 UNITS/0.01ML SC SCH ×2 (07:52→20:58)
--- NOTE | 2020-08-02 10:59 | IPNPDOC ---
Text Note Date of Service The patient was seen on 08/02/20. NOTE Subjective: Patient developed remarkable progress, he is on high flow oxygen, doing better today Objective: GENERAL APPEARANCE: NAD HEENT: no scleral icterus, no JVD, EOMI CARDIOVASCULAR: S1S2 LUNGS: Diminished lung sounds bilaterally ABDOMEN: soft & not tender w palpitation MUSCULOSKELETAL: no cyanosis, no swelling INTEGUMENT: no generalized pallor NEUROLOGICAL: cranial nerve function from 2-12 intact intact, follows commands, speech not dysarthric Plan Mr. Montilla is a 25-year-old male with type 2 diabetes mellitus with acute hypoxic respiratory failure secondary to pneumonia and splinting. He is also here with transaminitis. Patient developed acute respiratory failure secondary most likely to acute interstitial pneumonia. Treatment with steroids started 1. Acute hypoxic respiratory failure Most likely secondary to pneumonia of unknown etiology - atypical culture results negative I discontinued opioids which definitely suppress respiratory drive I encouraged patient to do physical therapy Chest x-ray on 07/31/20 showed improvement 2. Pneumonia Patient has been treated with levofloxacin HIV test negative and negative QuantiFERON test, Aspergillus galactomannan negative, [id number] negative, histoplasma antigen negative CTA on 11/15/20 showed scattered segmental and subsegmental atelectasis and consolidation noted bilaterally COVID test negative Procalcitonin 0.13 on 07/19/20 Dr. Hsu recommended to add doxycycline. However on 07/28/20 patient developed fever I discussed with Dr. Hsu patient's fever, she recommended to start Zosyn IV On 07/28/20 CT chest showed worsening bilateral consolidation. I discussed it with Dr. Monge, there is concern for AIP, steroids restarted, the dose of steroids were increased, it seems the patient has positive dynamics 3. Questionable COVID status Patient reports no COVID exposures He does report loss of taste Multiple COVID tests negative 4. Strep pharyngitis Resolved Patient was in the ED on July 11 and for fever Test positive for strep pharyngitis Was on Augmentin, but now on doxycycline Monoscreen negative EBV IgG positive, IgM negative 5. Transaminitis Elevated AST and ALT Possible EBV. Pending EBV serologies hepatitis panel negative Improved on 07/21/20. Could be secondary to hepatic steatosis is secondary to obesity 6. Diabetes mellitus Glucose level is difficult to control due to aggressive steroids therapy Patient blood glucose level still not optimally controlled. I will increase insulin treatment to 70 twice a day Sliding scale insulin Diabetes diet Malnutrition Resolved VS,Fishbone, I+O VS, Fishbone, I+O Laboratory Tests 08/02/20 05:55 Vital Signs Date Time Temp Pulse Resp B/P (MAP) Pulse Ox O2 Delivery O2 Flow Rate FiO2 08/02/20 08:46 96.3 68 22 104/64 (77) 93 HVNI-Vapotherm 40.0 60 I&O- Last 24 Hours up to 6 AM 08/02/20 06:00 Intake Total 2890 ml Output Total 2095 ml Balance 795 ml AL NORTH DO Aug 02, 2020 10:59
--- NOTE | 2020-08-02 15:44 | IPN ---
PROGRESS NOTE DATE: 08/01/2020 I again attended Mickey Montilla. Patient has been examined, chart reviewed. Says he is feeling better this morning. He has been able to spend more time on VapoTherm and off of the noninvasive support. Maximum temperature overnight 97.7, heart rate generally in the 50s and 60s with a sinus mechanism, blood pressure 140-120, respiratory rate in the teens without accessory muscle use. Intake and output midnight to midnight 2270 mL in with 1950 mL out. Chest x-ray yesterday showed improvement. On exam, he is awake, alert, and appropriate and quite comfortable, seated in a bedside chair. He said he is eating and drinking well. HEENT otherwise normocephalic, atraumatic. Pupils reactive to light. Neck is supple. Trachea is midline. VapoTherm is in place. Chest shows mildly diminished at the bases but no egophony or rubs. No wheezes. Cardiac exam is distant, regular with no murmur or gallop. Peripheral pulses palpable. No edema. Abdomen soft, nontender with active bowel sounds. No convincing organomegaly or mass. Extremities without cyanosis or clubbing. Neurologic: He is awake, alert, appropriate. Psychiatric: Normal mood and affect. Laboratory showed a white blood cell count of 15.9, hemoglobin 13.1, platelet count 375,000, 84% segs. No bands. Sodium 134, potassium 4.9, chloride 97, CO2 of 28, BUN 21, creatinine 0.91, glucose 301. IMPRESSION: 1. Hypoxemic respiratory failure, multifactorial. 2. Community-acquired pneumonia. 3. Acute interstitial pneumonitis, currently on steroids. At this point, I would agree with his current medications regimen. We will begin to wean his steroids hopefully in the next day or so if he continues to improve. I do believe he has benefitted greatly from being out of bed. Sugars being managed by the primary service. Certainly, if he is able to be maintained on lower levels of supplemental oxygen, then certainly discharge may be mid next week is not out of the question. We will proceed as outlined above. Further recommendations will be made in the progress record as new information becomes available
--- NOTE | 2020-08-02 20:25 | IPN ---
PULMONARY CRITICAL CARE PROGRESS NOTE DATE: 08/02/2020 SUBJECTIVE: I again attended Mickey Montilla. Patient was examined and chart was reviewed. He is sitting in the bedside chair, comfortably on Vapotherm. Saturation is 90 to 93%. T-max overnight 97.8, blood pressure 104 to 116 systolic, heart rate generally in the 50's and 60's with a sinus mechanism, respiratory rate in and around 17 to 20 without accessory muscle use. In's and out's midnight to midnight 2,745 cc in with 2,250 cc out. Repeat chest x-ray is pending. Film from the showed marked improvement from his one several days earlier. PHYSICAL EXAMINATION: GENERAL: Patient is awake, alert, and appropriate. HEENT: Pupils reactive. Sclerae clear. Trachea is midline. CHEST: Quite clear to both auscultation and percussion, symmetric and no significant focal adventitious breath sounds were identified. CARDIAC: Regular with no gallop. Peripheral pulses palpable. No edema. ABDOMEN: Soft, nontender with active bowel sounds. No convincing organomegaly or masses. EXTREMITIES: No cyanosis, clubbing or edema. NEUROLOGIC: He is awake, alert and appropriate. PSYCHIATRIC: Normal mood and affect. IMPRESSION: 1. Hypoxemic respiratory failure. 2. Acute interstitial pneumonitis versus injury secondary to vaping. 3. Pneumonia. PLAN: At this point, we will continue his current medications pending repeat chest x-ray. If that shows continued improvement, we can consider decreasing his steroids. My hope is his oxygenation will be a little bit better at this point, most recently being 19.1 today, 84% segs, no bands, hemoglobin 13. His procalcitonin on the was only 0.16 and my hope is that his elevated white blood cell count is all on the basis of his steroids. I have encouraged him to remain out of bed. Hopefully we can increase his ambulation. He still has hopes of being out in the next 4 to 5 days. I will proceed as outlined above. Further recommendations will be made in the progress record as new information becomes available. LESLIE
[2020-08-02] MEDS: **NOTE PATIENT COMMENT** MISC XX SCH (20:58)
--- NOTE | 2020-08-02 22:21 | IPN ---
INFECTIOUS DISEASE PROGRESS NOTE DATE: 07/31/2020 CHIEF COMPLAINT: Mickey seems to be doing much better tonight. The patient was seen at 6:00 p.m., sitting in his chair eating his dinner. He is in good spirits. He states his shortness of breath is better. He stated that his mom went to his house to visit and noted that there was some black mold in his bathroom. He has no nausea, vomiting or diarrhea. No abdominal pain. His appetite is good. PHYSICAL EXAMINATION: VITALS: Temperature 97.6, pulse 83, respirations 26, blood pressure 124/72, O2 sat 88% on 40 liter flow rate and FiO2 of 80%. HEENT: He has a mild cough, productive of whitish phlegm. HEART: Normal S1, S2, distant. LUNGS: Diminished breath sounds at the bases, but fair entry half way bilaterally. ABDOMEN: Soft, non-distended. EXTREMITIES: No cyanosis, clubbing or edema. Generalized weakness in motor strength. LABORATORY DATA: White count 16.2, hemoglobin 12.3, hematocrit 38, platelets 335,000. ESR 56. Sodium 134, potassium 4.6, chloride 100, bicarb 28, BUN 22, creatinine 0.88, glucose 321. Calcium 9, magnesium 2.5. CRP 2.38. Procalcitonin 0.16. Blood cultures from 07/27/2020; no growth after 5 days. SARS-COV2 on 07/28/2020 was negative. Urine histoplasma antigen negative. Urine Legionella antigen negative. Aspergillus galactomannan 0.02. Pneumococcal antigen negative. QuantiFERON-TB Gold negative. [id number] less than 31. IMPRESSION: 1. Hypoxemic respiratory failure - doing slightly better. 2. Acute interstitial pneumonitis - patient on I.V. Solu-Medrol; doing better. 3. Insulin dependent diabetes. 4. Possible hospital acquired pneumonia - patient was started on I.V. Zosyn on 07/28/2020 when he had a fever of 102. PLAN: Continue with I.V. steroids, currently at a dose of Solu-Medrol 80 mg I.V. every 8 hours. He is currently on day #5 of I.V. Zosyn, which will be discontinued. Procalcitonin is normal MTDD
[2020-08-03] VITALS: BP 120/62
[2020-08-03] MEDS: PIPERACILLIN/TAZOBACTAM SOD 3.375 GM in D5W MINI-BAG PLUS 50 ML IV SCH ×2 (03:16→08:15)
[2020-08-03 04:00] VITALS: BP 108/60
[2020-08-03 04:50] LABS: BASO % 0.1 % (0.0-1.0); HEMATOCRIT 39.4 % (42.0-52.0); HEMOGLOBIN 13.1 g/dl (13.5-17.5); LYMPH # 1.2 10^3/uL (1.5-5.0); LYMPH % 6.3 % (24.0-44.0); MEAN CORPUSCULAR HGB CONC 33.2 g/dl (32.0-36.5); MEAN CORPUSCULAR VOLUME 84.2 fl (80.0-96.0); MONO # 0.8 10^3/uL (0.0-0.8); NEUTROPHILS % 88.9 % (36.0-66.0); PLATELET COUNT, AUTOMATED 344 10^3/uL (150-450); RED BLOOD COUNT 4.68 10^6/uL (4.30-6.10); WHITE BLOOD COUNT 19.1 10^3/uL (4.0-10.0)
[2020-08-03 05:23] LABS: ALBUMIN 2.9 GM/DL (3.2-5.2); ALT/SGPT 214 U/L (12-78); BILIRUBIN,TOTAL 0.5 MG/DL (0.2-1.0); BLOOD UREA NITROGEN 17 MG/DL (7-18); CALCIUM LEVEL 9.1 MG/DL (8.5-10.1); CARBON DIOXIDE LEVEL 27 MEQ/L (21-32); CHLORIDE LEVEL 100 MEQ/L (98-107); CREATININE FOR GFR 0.84 MG/DL (0.70-1.30); GLOMERULAR FILTRATION RATE > 60.0 (>60); GLUCOSE, FASTING 299 MG/DL (70-100); MAGNESIUM LEVEL 2.5 MG/DL (1.8-2.4); POTASSIUM SERUM 4.3 MEQ/L (3.5-5.1); SODIUM LEVEL 134 MEQ/L (136-145); TOTAL PROTEIN 6.6 GM/DL (6.4-8.2)
[2020-08-03] MEDS: methylPREDNISolone 125MG 2ML VIAL IV SCH ×2 (07:42→15:06)
[2020-08-03] MEDS: HumaLOG INSULIN (NovoLOG) PER UNIT SC SCH ×4 (07:43→20:14)
--- NOTE | 2020-08-03 07:55 | REP ---
INDICATION: Hypoxemia COMPARISON: 07/31/2020 TECHNIQUE: Portable AP view of the chest FINDINGS: The mediastinum and cardiac silhouette are stable and within normal limits for portable technique. The lung mendoza demonstrate relatively stable bilateral airspace disease/opacities (left greater than right). No new consolidation, effusion, or pneumothorax. Skeletal structures intact. IMPRESSION: Bilateral opacities (left greater than right) similar to prior examination <Electronically signed by Jordi Noriega > 08/03/20 [id number]
[2020-08-03 08:00] VITALS: BP 109/55
[2020-08-03] MEDS: LIDOCAINE 5% (LIDODERM) PATCH TD SCH (08:15)
[2020-08-03] MEDS: ENOXAPARIN 40MG/0.4ML SYRINGE (J1650 PER 10MG) SC SCH (08:16)
[2020-08-03] MEDS: PANTOPRAZOLE 40MG TAB (PROTONIX) PO SCH (08:16)
[2020-08-03] MEDS ORDERED: LEVEMIR (INSULIN DETEMIR) 1 UNITS/0.01ML SC SCH ×2 (09:00→21:00)
--- NOTE | 2020-08-03 10:43 | IPNPDOC ---
Text Note Date of Service The patient was seen on 08/03/20. NOTE Subjective: Patient continues improving, his breathing better today and we will try nasal cannula Objective: GENERAL APPEARANCE: NAD HEENT: no scleral icterus, no JVD, EOMI CARDIOVASCULAR: S1S2 LUNGS: Diminished lung sounds bilaterally ABDOMEN: soft & not tender w palpitation MUSCULOSKELETAL: no cyanosis, no swelling INTEGUMENT: no generalized pallor NEUROLOGICAL: cranial nerve function from 2-12 intact intact, follows commands, speech not dysarthric Plan Mr. Montilla is a 25-year-old male with type 2 diabetes mellitus with acute hypoxic respiratory failure secondary to pneumonia and splinting. He is also here with transaminitis. Patient developed acute respiratory failure secondary most likely to acute interstitial pneumonia. Treatment with steroids started 1. Acute hypoxic respiratory failure Most likely secondary to pneumonia of unknown etiology - atypical culture results negative I discontinued opioids which definitely suppress respiratory drive I encouraged patient to do physical therapy Chest x-ray on 07/31/20 showed improvement 2. Pneumonia Patient has been treated with levofloxacin HIV test negative and negative QuantiFERON test, Aspergillus galactomannan negative, [id number] negative, histoplasma antigen negative CTA on 11/15/20 showed scattered segmental and subsegmental atelectasis and consolidation noted bilaterally COVID test negative Procalcitonin 0.13 on 07/19/20 Dr. Hsu recommended to add doxycycline. However on 07/28/20 patient developed fever I discussed with Dr. Hsu patient's fever, she recommended to start Zosyn IV. Patient received 6 days of Zosyn, pro-calcitonin negative. Zosyn DC On 07/28/20 CT chest showed worsening bilateral consolidation. I discussed it with Dr. Monge, there is concern for AIP, steroids restarted, the dose of steroids were increased, it seems the patient has positive dynamics I will titrate down IV steroids today from 80 mg every 8 hours to 60 mg every 8 h. 3. Questionable COVID status Patient reports no COVID exposures He does report loss of taste Multiple COVID tests negative 4. Strep pharyngitis Resolved Patient was in the ED on July 11 and for fever Test positive for strep pharyngitis Was on Augmentin, but now on doxycycline Monoscreen negative EBV IgG positive, IgM negative 5. Transaminitis Elevated AST and ALT Possible EBV. Pending EBV serologies hepatitis panel negative Improved on 07/21/20. Could be secondary to hepatic steatosis is secondary to obesity 6. Diabetes mellitus Glucose level is difficult to control due to aggressive steroids therapy Patient blood glucose level still not optimally controlled. I will increase insulin treatment to 70 daily at bedtime and 85 AM. Hopefully with titration of steroids we will be able to better control diabetes Sliding scale insulin Diabetes diet Malnutrition Resolved VS,Fishbone, I+O VS, Fishbone, I+O Laboratory Tests 08/03/20 04:44 Vital Signs Date Time Temp Pulse Resp B/P (MAP) Pulse Ox O2 Delivery O2 Flow Rate FiO2 08/03/20 08:00 90 HVNI-Vapotherm 20.0 40 08/03/20 08:00 96.9 66 21 109/55 (73) I&O- Last 24 Hours up to 6 AM 08/03/20 06:00 Intake Total 1660 ml Output Total 3750 ml Balance -2090 ml AL NORTH DO Aug 03, 2020 10:43
[2020-08-03] MEDS ORDERED: SLF 3 ML SYR IV PRN (11:45)
[2020-08-03] MEDS: SLF 3 ML SYR IV SCH ×2 (11:54→20:14)
[2020-08-03 12:00] VITALS: BP 108/52
--- NOTE | 2020-08-03 13:11 | CCN ---
CRITICAL CARE NOTE DATE: 08/03/2020 SUBJECTIVE: Mr. Montilla was seen and examined this morning. He currently has no new complaints. He states that he is feeling better. There have been no adverse events reported overnight. The patient does remain on high flow nasal cannula. However, his oxygen requirements have decreased. Additionally, the patient's chest x-ray showed significant improvement from previously. OBJECTIVE: Vital signs: Temperature 96.9, pulse 66, respiratory rate 21, blood pressure 109/55, pulse oximetry 90% on Vapotherm with FiO2 of 40. General: Patient is awake, alert, and oriented. He does not appear to be in acute distress. He is sitting in his chair comfortably with Vapotherm in place. HEENT: Atraumatic, normocephalic. Eyes are not icteric. Trachea is midline. Mucous membranes are pink and moist. Cardiovascular: Normal S1 and S2, regular rate and rhythm. No clicks, rubs, or murmurs. Pulmonary: Patient has some rhonchi although significant improvement from previous examination. There is no accessory muscle use. There is good respiratory effort. There are no wheezes or rales noted. Abdominal: Soft, nondistended, nontender. Normoactive bowel sounds throughout. No palpable masses or organomegaly. Extremities: No edema. Full and equal pulses bilateral upper and lower extremities. Neurologic: No focal neurologic deficits. Psychiatric: Mood and affect appear appropriate. LABORATORY DATA: Hematology: White blood cells 9.1, hemoglobin 13.1, hematocrit 39.4, platelet count 344. Chemistries: Sodium 134, potassium 4.3, chloride 100, CO2 27, BUN 17, creatinine 0.84, glucose 299, calcium 9.1, magnesium 2.5, total bilirubin 0.5, AST 44, ALT 214, total protein 6.6, albumin 2.9. INPATIENT MEDICATIONS: 1. Insulin Levemir 70 units q.h.s. 2. Solu-Medrol 60 mg q.8 hours. 3. Insulin Levemir 85 units in the morning. 4. Protonix 40 mg daily. 5. Tylenol 650 every four hours p.r.n. 6. Lovenox 40 mg. 7. Albuterol two puffs every four hours. 8. Tessalon Perles 100 mg three times a day. ASSESSMENT AND PLAN: Mr. Montilla is a 25-year-old male with a history of type 2 diabetes mellitus and GERD who presented to [facility] with a complaint of shortness of breath and was found to be hypoxemic. He developed hypoxemic respiratory failure and was placed on Bilevel. He has been evaluated for COVID multiple times, all of which have been negative. Patient suspected to have acute interstitial pneumonia versus a vaping-associated lung injury. He has been on Vapotherm currently with improvement. 1. Hypoxemic respiratory failure secondary to Acute interstitial pneumonia vs Vaping-associated lung injury: Patient currently continued on Vapotherm. Chest x-ray from today did show improvement in the bilateral opacities. Differential includes acute interstitial pneumonia vs vaping-associated lung injury He was previously on Solu-Medrol 80 mg Q8H. He has been tapered to Solu- Medrol 60 mg currently. Will recommend to continue taper. He is additionally currently on Zosyn. He has been seen by Infectious Disease who recommends discontinuing Zosyn. He has already received five days of treatment. Additional recommendations to continue physical therapy and increase mobilization to improve deconditioning. 2. Atypical pneumonia: As stated previously, patient was originally presumed to have atypical pneumonia. He was treated with Zosyn. He has completed treatment with five days IV Zosyn. 3. Type 2 diabetes mellitus with hyperglycemia: Patient has hyperglycemia likely related to high dose steroids. His insulin is being managed by the primary team. 4. DVT prophylaxis: Patient is currently on Lovenox. Will continue. 5. Ulcer prophylaxis: Patient is currently on Protonix 40 mg daily. DISPOSITION: Patient has shown improvement, although he is still remaining critically ill. He is going to be continued on steroids and Vapotherm at this current time. I was physically present for the entire interview and exam. I agree with the above assessment and plan. Critical Care Time: 45 min MTDD
[2020-08-03] MEDS: ACETAMINOPHEN TAB 650MG DOSE (2X325MG) PO PRN ×2 (15:13→21:07)
[2020-08-03 16:00] VITALS: BP 105/51
[2020-08-03] MEDS: **NOTE PATIENT COMMENT** MISC XX SCH (17:46)
[2020-08-03 20:00] VITALS: BP 120/60
[2020-08-04] VITALS (10 sets, daily range): BP systolic 108–117; BP diastolic 55–62; O2SAT 89–95
[2020-08-04] MEDS: methylPREDNISolone 125MG 2ML VIAL IV SCH ×2 (00:12→08:16)
[2020-08-04] MEDS: SLF 3 ML SYR IV SCH ×2 (05:26→08:18)
[2020-08-04 06:18] LABS: BASO % 0.2 % (0.0-1.0); HEMATOCRIT 39.1 % (42.0-52.0); HEMOGLOBIN 12.8 g/dl (13.5-17.5); LYMPH # 1.3 10^3/uL (1.5-5.0); LYMPH % 6.8 % (24.0-44.0); MEAN CORPUSCULAR HEMOGLOBIN 27.3 pg (27.0-33.0); MEAN CORPUSCULAR HGB CONC 32.7 g/dl (32.0-36.5); MEAN CORPUSCULAR VOLUME 83.4 fl (80.0-96.0); MONO # 0.9 10^3/uL (0.0-0.8); MONO % 5.1 % (0.0-5.0); NEUTROPHILS % 86.6 % (36.0-66.0); PLATELET COUNT, AUTOMATED 332 10^3/uL (150-450); RED BLOOD COUNT 4.69 10^6/uL (4.30-6.10); WHITE BLOOD COUNT 18.5 10^3/uL (4.0-10.0)
[2020-08-04 06:49] LABS: ALBUMIN 2.9 GM/DL (3.2-5.2); ALT/SGPT 195 U/L (12-78); BILIRUBIN,TOTAL 0.4 MG/DL (0.2-1.0); BLOOD UREA NITROGEN 19 MG/DL (7-18); CALCIUM LEVEL 8.9 MG/DL (8.5-10.1); CARBON DIOXIDE LEVEL 30 MEQ/L (21-32); CHLORIDE LEVEL 102 MEQ/L (98-107); CREATININE FOR GFR 0.73 MG/DL (0.70-1.30); GLOMERULAR FILTRATION RATE > 60.0 (>60); GLUCOSE, FASTING 191 MG/DL (70-100); MAGNESIUM LEVEL 2.2 MG/DL (1.8-2.4); POTASSIUM SERUM 4.2 MEQ/L (3.5-5.1); SODIUM LEVEL 136 MEQ/L (136-145); TOTAL PROTEIN 6.8 GM/DL (6.4-8.2)
[2020-08-04] MEDS: LEVEMIR (INSULIN DETEMIR) 1 UNITS/0.01ML SC SCH (08:16)
[2020-08-04] MEDS: PANTOPRAZOLE 40MG TAB (PROTONIX) PO SCH (08:16)
[2020-08-04] MEDS: ENOXAPARIN 40MG/0.4ML SYRINGE (J1650 PER 10MG) SC SCH (08:17)
[2020-08-04] MEDS: HumaLOG INSULIN (NovoLOG) PER UNIT SC SCH ×4 (08:17→20:41)
[2020-08-04] MEDS: LIDOCAINE 5% (LIDODERM) PATCH TD SCH (08:17)
--- NOTE | 2020-08-04 11:35 | CCN ---
CRITICAL CARE NOTE DATE: 08/04/2020 SUBJECTIVE: Mr. Montilla was seen and examined this morning. He currently has no complaints. There have been no adverse events reported overnight. The patient states that he feels a lot better. He no longer complains of shortness of breath. He has been transitioned over to Venturi mask off of Vapotherm. Patient states that he is moving around and participating with physical therapy. OBJECTIVE: Vital signs: Temperature 96.8, pulse 53, respiratory rate 18, blood pressure 108/57, pulse oximetry 90% on Venturi mask with a flow rate of 15 and an FiO2 of 30. General: Patient is awake, alert, and oriented. He does not appear in acute distress. He is lying in his chair. HEENT: Atraumatic, normocephalic. Eyes anicteric. Trachea is midline. Patient has a Venturi mask in place. Mucous membranes are pink and moist. Cardiovascular: Normal S1 and S2, regular rate and rhythm. No clicks, rubs, or murmurs. Pulmonary: Patient has improved breath sounds bilaterally, somewhat decreased in the bases. No rhonchi, wheezes, or rales noted. No accessory muscle use. Abdominal: Soft, nondistended, nontender. Normoactive bowel sounds throughout. Extremities: No edema. Full and equal pulses bilateral upper and lower extremities. Neurologic: No focal neurological deficits. Psychiatric: Mood and affect appear appropriate. LABORATORY DATA: Hematology: White blood cells 18.5, hemoglobin 12.8, hematocrit 39.1, platelet count 332. Chemistries: Sodium 136, potassium 4.2, chloride 102, CO2 30, BUN 19, creatinine 0.73, fasting glucose 191, calcium 8.9, magnesium 2.2, total bilirubin 0.4, AST 37, ALT 195, alkaline phosphatase 52, total protein 6.8, albumin 2.9. INPATIENT MEDICATIONS: 1. Levemir 75 units q.h.s. 2. Levemir 95 units q.a.m. 3. Solu-Medrol 60 mg q.8h. 4. Sliding scale insulin. 5. Protonix 40 mg p.o. daily. 6. Tylenol 650 mg every four hours p.r.n. 7. Lovenox 40 mg daily. 8. Cepacol one lozenge every one hour p.r.n. 9. Albuterol two puffs every four hours. 10. Tessalon Perles 100 mg t.i.d. p.r.n. ASSESSMENT AND PLAN: Mr. Montilla is a 25-year-old male with a past medical history of type 2 diabetes mellitus and gastroesophageal reflux disease who presented to [facility] with a complaint of shortness of breath and found to be hypoxemic. He had stated a history of vaping. The patient had developed hypoxemic respiratory failure and was placed on bilevel. He had been evaluated for COVID multiple times which was negative. The patient currently is diagnosed with having acute interstitial pneumonia versus a vaping-associated lung injury. He has been started on IV Solu-Medrol. Additionally, patient has been seen by Infectious Disease for possibly atypical pneumonia and started on Zosyn. Patient was transitioned back to Vapotherm and currently on Venturi mask. 1. Hypoxemic respiratory failure secondary to acute interstitial pneumonia versus a vaping-associated lung injury: Patient previously on Vapotherm. Has been transitioned to Venturi mask this morning. Will transition him into an aerosol mask to prevent drying secretions. Currently requiring FiO2 of around 309. This is a significant improvement from his previous examinations. Currently his differential remains an acute interstitial pneumonia versus a vaping-associated lung injury. Patient has been informed and made aware that vaping is associated with this type of lung injury and that he should not vape any longer. As far as recommendations go, the patient is continued on his Solu-Medrol with tapering. He will likely need a long taper over 4-6 weeks. Additionally, the patient has completed his treatment with Zosyn. Infectious Disease is following. Additional recommendations are for patient to continue physical therapy and increase mobilization to improve his deconditioning. 2. Atypical pneumonia: Patient possibly had an underlying coinfection. He was treated with Zosyn and has completed treatment. He has no fevers currently. 3. Type 2 diabetes mellitus with hyperglycemia: Patient has hyperglycemia likely related to his high dose steroids. Insulin being managed by primary team. 4. Leukocytosis: Patient's leukocytosis is likely secondary to high dose steroids. He remains afebrile, likely not infectious. Will continue to monitor. 5. DVT prophylaxis: Patient is currently on Lovenox. Will continue. 6. Ulcer prophylaxis: Patient is currently on Protonix 40 mg p.o. DISPOSITION: Patient has shown significant clinical improvement. He does remain critically ill, although he has been transitioned off of Vapotherm and now on Venturi mask. He is to continue on steroids at this time. CRITICAL CARE TIME: Forty-five minutes. I was physically present for the entire interview and exam and fully agree with the above. LESLIE
--- NOTE | 2020-08-04 14:17 | IPNPDOC ---
Text Note Date of Service The patient was seen on 08/04/20. NOTE Subjective: No any acute events overnight. Pt is on Venturi mask in the morning Objective: GENERAL APPEARANCE: NAD HEENT: no scleral icterus, no JVD, EOMI CARDIOVASCULAR: S1S2 LUNGS: Diminished lung sounds bilaterally ABDOMEN: soft & not tender w palpitation MUSCULOSKELETAL: no cyanosis, no swelling INTEGUMENT: no generalized pallor NEUROLOGICAL: cranial nerve function from 2-12 intact intact, follows commands, speech not dysarthric Plan Mr. Montilla is a 25-year-old male with type 2 diabetes mellitus with acute hypoxic respiratory failure secondary to pneumonia and splinting. He is also here with transaminitis. Patient developed acute respiratory failure secondary most likely to acute interstitial pneumonia. Treatment with steroids started 1. Acute hypoxic respiratory failure Most likely secondary to pneumonia of unknown etiology - atypical culture results negative I discontinued opioids which definitely suppress respiratory drive I encouraged patient to do physical therapy Chest x-ray on 07/31/20 showed improvement 2. Pneumonia Patient has been treated with levofloxacin HIV test negative and negative QuantiFERON test, Aspergillus galactomannan negative, [id number]-[id number] negative, histoplasma antigen negative CTA on 11/15/20 showed scattered segmental and subsegmental atelectasis and consolidation noted bilaterally COVID test negative Procalcitonin 0.13 on 07/19/20 Dr. Hsu recommended to add doxycycline. However on 07/28/20 patient developed fever I discussed with Dr. Hsu patient's fever, she recommended to start Zosyn IV. Patient received 6 days of Zosyn, pro-calcitonin negative. Zosyn DC On 07/28/20 CT chest showed worsening bilateral consolidation. I discussed it with Dr. Monge, there is concern for AIP, steroids restarted, the dose of steroids were increased, it seems the patient has positive dynamics I will titrate down IV steroids today from 60 mg every 8 hours to 40 mg every 8 h. 3. Questionable COVID status Patient reports no COVID exposures He does report loss of taste Multiple COVID tests negative 4. Strep pharyngitis Resolved Patient was in the ED on July 11 and for fever Test positive for strep pharyngitis Was on Augmentin, but now on doxycycline Monoscreen negative EBV IgG positive, IgM negative 5. Transaminitis Elevated AST and ALT Possible EBV. Pending EBV serologies hepatitis panel negative Improved on 07/21/20. Could be secondary to hepatic steatosis is secondary to obesity 6. Diabetes mellitus Glucose level is difficult to control due to aggressive steroids therapy Patient blood glucose level still not optimally controlled. I will increase insulin treatment to 70 daily at bedtime and 95 AM. Hopefully with titration of steroids we will be able to better control diabetes Sliding scale insulin Diabetes diet Malnutrition Resolved Leukocytosis Secondary to steroids Patient afebrile, normotensive VS,Fishbone, I+O VS, Fishbone, I+O Laboratory Tests 08/04/20 05:27 Vital Signs Date Time Temp Pulse Resp B/P (MAP) Pulse Ox O2 Delivery O2 Flow Rate FiO2 08/04/20 13:20 91 Venturi Mask 8.0 31 08/04/20 12:00 97.0 62 18 115/55 (75) I&O- Last 24 Hours up to 6 AM 08/04/20 06:00 Intake Total 2210 ml Output Total 3585 ml Balance -1375 ml AL NORTH DO Aug 04, 2020 14:17
[2020-08-04] MEDS: methylPREDNISolone 40MG 1ML VIAL IV SCH (16:40)
--- NOTE | 2020-08-04 16:53 | IPN ---
PROGRESS NOTE DATE: 08/04/2020 Mickey seems to be doing great. He is on an FiO2 of 31% oxygenating at 91. Patient would like to go home in the next couple of days. He has no nausea, vomiting, or diarrhea, no abdominal pain. He has no cough. Shortness of breath has improved. He walks around the room. LABORATORY DATA: hemoglobin 12.8, hematocrit 39.1, platelets 332, sodium 136, potassium 4.2, chloride 102, bicarbonate 30, BUN 19, creatinine 0.73, glucose 191, calcium 8.9, magnesium 2.2, bilirubin 0.4, AST 37, ALT 195, alkaline phosphatase 52, total protein 6.8, albumin 2.9. Urine Pneumococcal antigen, Legionnaire antigen, beta-3 glucan were negative. Repeat SARS-CoV-2 was negative. Streptococcus antigen was normal. Histoplasma antigen was normal. IMPRESSION: 1. Hypoxemic respiratory failure with interstitial pneumonitis versus vaping associated lung injury. Patient was treated initially with doxycycline for atypical pneumonia followed by Zosyn for possible hospital-acquired pneumonia and fever. Antibiotics were discontinued on 08/03/2020. Patient doing well. 2. History of vaping and chewing tobacco. Patient was advised not to use any nicotine products ever again. PLAN: Infectious disease signing off. I would suggest switching him to oral prednisone. Patient is anxious to go home, agree with a long taper over the next 6 weeks. MTDD
[2020-08-04] MEDS: ACETAMINOPHEN TAB 650MG DOSE (2X325MG) PO PRN (20:42)
[2020-08-04] MEDS: **NOTE PATIENT COMMENT** MISC XX SCH (20:42)
[2020-08-04] MEDS ORDERED: LEVEMIR (INSULIN DETEMIR) 1 UNITS/0.01ML SC SCH (21:00)
[2020-08-05] VITALS (17 sets, daily range): BP systolic 113–127; BP diastolic 55–72; O2SAT 86–94
[2020-08-05] MEDS: SLF 3 ML SYR IV SCH ×4 (00:04→22:00)
[2020-08-05] MEDS: methylPREDNISolone 40MG 1ML VIAL IV SCH ×2 (00:04→08:10)
[2020-08-05 06:33] LABS: BASO % 0.1 % (0.0-1.0); HEMOGLOBIN 13.6 g/dl (13.5-17.5); LYMPH # 1.4 10^3/uL (1.5-5.0); LYMPH % 7.9 % (24.0-44.0); MEAN CORPUSCULAR HEMOGLOBIN 27.6 pg (27.0-33.0); MEAN CORPUSCULAR HGB CONC 32.4 g/dl (32.0-36.5); MEAN CORPUSCULAR VOLUME 85.4 fl (80.0-96.0); MONO % 5.5 % (0.0-5.0); NEUTROPHILS # 14.8 10^3/uL (1.5-8.5); NEUTROPHILS % 84.8 % (36.0-66.0); PLATELET COUNT, AUTOMATED 323 10^3/uL (150-450); RED BLOOD COUNT 4.92 10^6/uL (4.30-6.10); WHITE BLOOD COUNT 17.4 10^3/uL (4.0-10.0)
[2020-08-05 06:50] LABS: ALBUMIN 3.2 GM/DL (3.2-5.2); ALT/SGPT 194 U/L (12-78); BILIRUBIN,TOTAL 0.5 MG/DL (0.2-1.0); BLOOD UREA NITROGEN 18 MG/DL (7-18); CALCIUM LEVEL 9.3 MG/DL (8.5-10.1); CARBON DIOXIDE LEVEL 31 MEQ/L (21-32); CHLORIDE LEVEL 102 MEQ/L (98-107); CREATININE FOR GFR 0.76 MG/DL (0.70-1.30); GLOMERULAR FILTRATION RATE > 60.0 (>60); GLUCOSE, FASTING 177 MG/DL (70-100); MAGNESIUM LEVEL 2.3 MG/DL (1.8-2.4); POTASSIUM SERUM 4.6 MEQ/L (3.5-5.1); SODIUM LEVEL 140 MEQ/L (136-145); TOTAL PROTEIN 6.8 GM/DL (6.4-8.2)
[2020-08-05] MEDS: LEVEMIR (INSULIN DETEMIR) 1 UNITS/0.01ML SC SCH (08:10)
[2020-08-05] MEDS: PANTOPRAZOLE 40MG TAB (PROTONIX) PO SCH (08:10)
[2020-08-05] MEDS: LIDOCAINE 5% (LIDODERM) PATCH TD SCH (08:11)
[2020-08-05] MEDS: ENOXAPARIN 40MG/0.4ML SYRINGE (J1650 PER 10MG) SC SCH (08:11)
[2020-08-05] MEDS: HumaLOG INSULIN (NovoLOG) PER UNIT SC SCH ×4 (08:11→20:47)
--- NOTE | 2020-08-05 11:03 | IPNPDOC ---
Text Note Date of Service The patient was seen on 08/05/20. NOTE Subjective: Patient has remarkable improvement, patient is on 3 L of oxygen in the morning Objective: GENERAL APPEARANCE: NAD HEENT: no scleral icterus, no JVD, EOMI CARDIOVASCULAR: S1S2 LUNGS: Diminished lung sounds bilaterally ABDOMEN: soft & not tender w palpitation MUSCULOSKELETAL: no cyanosis, no swelling INTEGUMENT: no generalized pallor NEUROLOGICAL: cranial nerve function from 2-12 intact intact, follows commands, speech not dysarthric Plan Mr. Montilla is a 25-year-old male with type 2 diabetes mellitus with acute hypoxic respiratory failure secondary to pneumonia and splinting. He is also here with transaminitis. Patient developed acute respiratory failure secondary most likely to acute interstitial pneumonia. Treatment with steroids started 1. Acute hypoxic respiratory failure Most likely secondary to pneumonia of unknown etiology - atypical culture results negative I discontinued opioids which definitely suppress respiratory drive I encouraged patient to do physical therapy Chest x-ray on 07/31/20 showed improvement Currently patient is on 3 L of oxygen 2. Pneumonia Patient has been treated with levofloxacin HIV test negative and negative QuantiFERON test, Aspergillus galactomannan negative, [id number]-1-cdokyl negative, histoplasma antigen negative CTA on 11/15/20 showed scattered segmental and subsegmental atelectasis and consolidation noted bilaterally COVID test negative Procalcitonin 0.13 on 07/19/20 Dr. Hsu recommended to add doxycycline. However on 07/28/20 patient developed fever I discussed with Dr. Hsu patient's fever, she recommended to start Zosyn IV. Patient received 6 days of Zosyn, pro-calcitonin negative. Zosyn DC On 07/28/20 CT chest showed worsening bilateral consolidation. I discussed it with Dr. Monge, there is concern for AIP, steroids restarted, the dose of steroids were increased, it seems the patient has positive dynamics Will start by mouth steroids tomorrow 3. Questionable COVID status Patient reports no COVID exposures He does report loss of taste Multiple COVID tests negative 4. Strep pharyngitis Resolved Patient was in the ED on July 11 and for fever Test positive for strep pharyngitis Was on Augmentin, but now on doxycycline Monoscreen negative EBV IgG positive, IgM negative 5. Transaminitis Elevated AST and ALT Possible EBV. Pending EBV serologies hepatitis panel negative Improved on 07/21/20. Could be secondary to hepatic steatosis is secondary to obesity 6. Diabetes mellitus Glucose level is difficult to control due to aggressive steroids therapy Patient blood glucose level still not optimally controlled. Hopefully with transition of steroids to by mouth we will be able to better control diabetes Sliding scale insulin Diabetes diet Malnutrition Resolved Leukocytosis Secondary to steroids Patient afebrile, normotensive VS,Fishbone, I+O VS, Fishbone, I+O Laboratory Tests 08/05/20 05:43 Vital Signs Date Time Temp Pulse Resp B/P (MAP) Pulse Ox O2 Delivery O2 Flow Rate FiO2 08/05/20 10:00 86 Nasal Cannula 3.0 08/05/20 08:00 97.2 72 18 114/55 (74) 08/04/20 16:35 28 I&O- Last 24 Hours up to 6 AM 08/05/20 05:59 Intake Total 2040 ml Output Total 1930 ml Balance 110 ml AL NORTH DO Aug 05, 2020 11:03
[2020-08-05] MEDS: **NOTE PATIENT COMMENT** MISC XX SCH (20:48)
[2020-08-05] MEDS ORDERED: LEVEMIR (INSULIN DETEMIR) 1 UNITS/0.01ML SC SCH (21:00)
[2020-08-06] MEDS: SLF 3 ML SYR IV SCH ×2 (05:40→13:30)
[2020-08-06 06:00] VITALS: BP 111/61
[2020-08-06] MEDS: HumaLOG INSULIN (NovoLOG) PER UNIT SC SCH ×2 (07:30→13:29)
[2020-08-06 07:35] LABS: BASO % 0.2 % (0.0-1.0); EOS # 0.1 10^3/uL (0.0-0.5); EOS % 0.6 % (0.0-3.0); HEMATOCRIT 40.1 % (42.0-52.0); HEMOGLOBIN 13.3 g/dl (13.5-17.5); LYMPH # 3.4 10^3/uL (1.5-5.0); LYMPH % 25.8 % (24.0-44.0); MEAN CORPUSCULAR HGB CONC 33.2 g/dl (32.0-36.5); MEAN CORPUSCULAR VOLUME 84.4 fl (80.0-96.0); MONO # 1.1 10^3/uL (0.0-0.8); MONO % 8.5 % (0.0-5.0); NEUTROPHILS # 8.3 10^3/uL (1.5-8.5); NEUTROPHILS % 62.4 % (36.0-66.0); PLATELET COUNT, AUTOMATED 282 10^3/uL (150-450); RED BLOOD COUNT 4.75 10^6/uL (4.30-6.10); WHITE BLOOD COUNT 13.3 10^3/uL (4.0-10.0)
[2020-08-06 08:06] LABS: ALT/SGPT 182 U/L (12-78); BILIRUBIN,TOTAL 0.3 MG/DL (0.2-1.0); BLOOD UREA NITROGEN 20 MG/DL (7-18); CALCIUM LEVEL 8.7 MG/DL (8.5-10.1); CARBON DIOXIDE LEVEL 29 MEQ/L (21-32); CHLORIDE LEVEL 102 MEQ/L (98-107); CREATININE FOR GFR 0.72 MG/DL (0.70-1.30); GLOMERULAR FILTRATION RATE > 60.0 (>60); GLUCOSE, FASTING 82 MG/DL (70-100); MAGNESIUM LEVEL 2.1 MG/DL (1.8-2.4); POTASSIUM SERUM 3.9 MEQ/L (3.5-5.1); SODIUM LEVEL 141 MEQ/L (136-145)
[2020-08-06] MEDS: PANTOPRAZOLE 40MG TAB (PROTONIX) PO SCH (08:29)
[2020-08-06] MEDS: ENOXAPARIN 40MG/0.4ML SYRINGE (J1650 PER 10MG) SC SCH (08:30)
[2020-08-06] MEDS: LIDOCAINE 5% (LIDODERM) PATCH TD SCH (08:30)
[2020-08-06] MEDS ORDERED: LEVEMIR (INSULIN DETEMIR) 1 UNITS/0.01ML SC SCH ×3 (09:00→21:00)
[2020-08-06] MEDS ORDERED: predniSONE 20 MG TAB PO SCH (09:00)
[2020-08-06] MEDS ORDERED: ALCOPAD25 TOP (11:16)
[2020-08-06] MEDS ORDERED: PRED20TA PO (11:16)
[2020-08-06] MEDS ORDERED: PEN1MIS21 SC (11:16)
[2020-08-06] MEDS ORDERED: GLUC1TES2 XX (11:16)
[2020-08-06] MEDS ORDERED: LANTINJ4 SC (11:16)
[2020-08-06] MEDS ORDERED: LANC30MI XX (11:16)
[2020-08-06] MEDS ORDERED: INSU1MIS20 SC (11:16)
[2020-08-06] MEDS ORDERED: BLOOKIT21 XX (11:16)
[2020-08-06] MEDS ORDERED: BASA100I SC (13:30)
[2020-08-06 14:00] VITALS: BP 115/68
--- NOTE | 2020-08-06 17:39 | DS.PDOC ---
Discharge Summary General Date of Admission Jul 18, 2020 at 21:34 Date of Discharge 08/06/20 Discharge Summary PROCEDURES PERFORMED DURING STAY: [None]. ADMITTING DIAGNOSES: Acute hypoxic respiratory failure Pneumonia Questionable COVID status Strep pharyngitis Transaminitis Diabetes mellitus Malnutrition Leukocytosis DISCHARGE DIAGNOSES: Acute hypoxic respiratory failure Pneumonia Strep pharyngitis Transaminitis Diabetes mellitus Malnutrition Leukocytosis COMPLICATIONS/CHIEF COMPLAINT: Pneumonia, Strep Pharyngitis. HISTORY OF PRESENT ILLNESS:Mr. Montilla is a 25-year-old male with type 2 diabetes mellitus with acute hypoxic respiratory failure secondary to pneumonia and splinting. He is also here with transaminitis. Patient developed acute respiratory failure secondary most likely to acute interstitial pneumonia. Treatment with steroids started HOSPITAL COURSE: During hospital stay the following issues addressed 1. Acute hypoxic respiratory failure Most likely secondary to pneumonia of unknown etiology - atypical culture results negative I discontinued opioids which definitely suppress respiratory drive I encouraged patient to do physical therapy Chest x-ray on 07/31/20 showed improvement 2. Pneumonia Patient has been treated with levofloxacin HIV test negative and negative QuantiFERON test, Aspergillus galactomannan negative, lpnv-1-dtcbkm negative, histoplasma antigen negative CTA on 11/15/20 showed scattered segmental and subsegmental atelectasis and consolidation noted bilaterally COVID test negative Procalcitonin 0.13 on 07/19/20 Dr. Hsu recommended to add doxycycline. However on 07/28/20 patient developed fever I discussed with Dr. Hsu patient's fever, she recommended to start Zosyn IV. Patient received 6 days of Zosyn, pro-calcitonin negative. Zosyn DC On 07/28/20 CT chest showed worsening bilateral consolidation. I discussed it with Dr. Monge, there is concern for AIP, steroids restarted, the dose of steroids were increased, it seems the patient has positive dynamics Transitioned to by mouth prednisone with long taper 3. Questionable COVID status Patient reports no COVID exposures He does report loss of taste Multiple COVID tests negative 4. Strep pharyngitis Resolved Patient was in the ED on July 11 and for fever Test positive for strep pharyngitis Was on Augmentin Monoscreen negative EBV IgG positive, IgM negative 5. Transaminitis Elevated AST and ALT Possible EBV. Pending EBV serologies hepatitis panel negative Improved on 07/21/20. Could be secondary to hepatic steatosis is secondary to obesity 6. Diabetes mellitus Glucose level is difficult to control due to aggressive steroids therapy Patient blood glucose level still not optimally controlled. Hopefully with transition of steroids to by mouth we will be able to better control diabetes Sliding scale insulin Diabetes diet Malnutrition Resolved Leukocytosis Secondary to steroids Patient afebrile, normotensive DISCHARGE MEDICATIONS: Please see below. ALLERGIES: Please see below. PHYSICAL EXAMINATION ON DISCHARGE: VITAL SIGNS: Please see below. GENERAL APPEARANCE: NAD HEENT: no scleral icterus, no JVD, EOMI CARDIOVASCULAR: S1S2 LUNGS: Diminished lung sounds bilaterally ABDOMEN: soft & not tender w palpitation MUSCULOSKELETAL: no cyanosis, no swelling INTEGUMENT: no generalized pallor NEUROLOGICAL: cranial nerve function from 2-12 intact intact, follows commands, speech not dysarthric LABORATORY DATA: Please see below. IMAGING: [facility] NAME: ROLA MONTILLA DATE OF : 1995 BUSINESS NUMBER: [id number] AGE: 25 SEX: M REPORT #: [id number] ROOM: ED TECHNOLOGIST: CWILSON DOCTOR: Kerrie Hale MD Ordered for Date&Time: 07/18/20 182 cc: [~ rep ct ivnm] Service Date&Time: 07/18/202105 This report is in Signed status. Interpretation performed by [facility]. Thank you for having your radiology procedures performed at [facility] RADIOLOGY REPORT Date&Time printed: [~ rep prt dt last] [~ rep prt tm last] Page 2 of 2 [place] [id number] RADIOLOGY REPORT This report is in Signed status. Interpretation performed by [facility]. Thank you for having your radiology procedures performed at [facility] RADIOLOGY REPORT Date&Time printed: [~ rep prt dt last] [~ rep prt tm last] Page 1 of 1 PROCEDURE INFORMATION: Exam: CT Angiography Chest With Contrast Exam date and time: 07/18/2020 9:06 PM Age: 25 years old Clinical indication: Shortness of breath; Additional info: SOB TECHNIQUE: Imaging protocol: Computed tomographic angiography of the chest with intravenous contrast. 3D rendering (Not supervised by radiologist): MIP and/or 3D reconstructed images were created by the technologist. Radiation optimization: All CT scans at this facility use at least one of these dose optimization techniques: automated exposure control; mA and/or kV adjustment per patient size (includes targeted exams where dose is matched to clinical indication); or iterative reconstruction. Contrast material: ISOVUE 370; Contrast volume: 75 ml; Contrast route: INTRAVENOUS (IV); COMPARISON: CT ANGIO CHEST 03/17/2018 6:35 PM FINDINGS: Pulmonary arteries: No definite pulmonary embolism. Significant stairstep artifact related to misregistration. Aorta: Unremarkable. No aortic aneurysm. No aortic dissection. Lungs: Segmental and subsegmental atelectasis/consolidation noted in both upper lobes and both lower lobes. Pleural space: Unremarkable. No pneumothorax. No pleural effusion. Heart: There is cardiomegaly. Mediastinal space: Left hilar calcifications. Lymph nodes: Unremarkable. No enlarged lymph nodes. Liver: The liver is low in density. Spleen: The spleen is not imaged its in its entirety but measures at least 13.6 cm in craniocaudal span. Bones/joints: Unremarkable. No acute fracture. Soft tissues: Unremarkable. IMPRESSION: 1. Significant misregistration artifact. No definite pulmonary embolism noted. 2. Scattered segmental and subsegmental atelectasis and consolidation noted bilaterally. 3. Cardiomegaly. 4. Hepatic steatosis. 5. Splenomegaly. Electronically signed by: Shanna Choi On 07/18/2020 21:37:57 PM DD: SHANNA CHOI MD 07/18/202105 DT: MERY 07/18/202136 DS: UTE 07/18/202136 [~ rep ct labl] PROGNOSIS: Good ACTIVITY: [As tolerated]. DIET: Diabetes DISPOSITION: Home, Self-Care. 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 TIME SPENT ON DISCHARGE: Greater than 40 minutes. Vital Signs/I&Os Vital Signs Date Time Temp Pulse Resp B/P (MAP) Pulse Ox O2 Delivery O2 Flow Rate FiO2 08/06/20 14:00 97.3 117 19 115/68 (84) 90 Room Air 08/06/20 06:00 1.0 08/04/20 16:35 28 I&O- Last 24 Hours up to 6 AM 08/06/20 06:00 Intake Total 2200 ml Output Total 2110 ml Balance 90 ml Laboratory Data Labs 24H Laboratory Tests 2 08/05/20 20:27: Bedside Glucose (Misc Panel) 317H 08/06/20 05:40: Bedside Glucose (Misc Panel) 110H 08/06/20 06:54: Immature Granulocyte % (Auto) 2.5, Neutrophils (%) (Auto) 62.4, Lymphocytes (%) (Auto) 25.8, Monocytes (%) (Auto) 8.5H, Eosinophils (%) (Auto) 0.6, Basophils (%) (Auto) 0.2, Neutrophils # (Auto) 8.3, Lymphocytes # (Auto) 3.4, Monocytes # (Auto) 1.1H, Eosinophils # (Auto) 0.1, Basophils # (Auto) 0.0, Nucleated Red Blood Cells % (auto) 0.0, Anion Gap 10, Glomerular Filtration Rate > 60.0, Calcium Level 8.7, Magnesium Level 2.1, Total Bilirubin 0.3, Aspartate Amino Transf (AST/SGOT) 49H, Alanine Aminotransferase (ALT/SGPT) 182H, Alkaline Phosphatase 52, Total Protein 6.0L, Albumin 3.0L, Albumin/Globulin Ratio 1.0 08/06/20 12:06: Bedside Glucose (Misc Panel) 173H CBC/BMP Laboratory Tests 08/06/20 06:54 FSBS Laboratory Tests Test 08/05/20 20:27 08/06/20 05:40 08/06/20 12:06 Range/Units Bedside Glucose (Misc Panel) 317 110 173 70-105 MG/DL Microbiology Microbiology 07/27/20 Blood Culture - Final, Complete NO GROWTH AFTER 5 DAYS 07/27/20 Blood Culture - Final, Complete NO GROWTH AFTER 5 DAYS Discharge Medications Scheduled Blood Sugar Diagnostic (Advanced Glucose Test Strips) 1 Each Strip, 1 STRIP XX ACHS Insulin Glargine,Hum.rec.anlog (Basaglar Kwikpen U-100) 100 Unit/1 Ml Insuln.pen, 10 UNIT SC QHS Metformin HCl (Metformin HCl) 1,000 Mg Tablet, 1,000 MG PO BID, (Reported) Omeprazole (Omeprazole) 40 Mg Capsule.dr, 40 MG PO QHS, (Reported) Prednisone (Prednisone) 20 Mg Tablet, 40 MG PO DAILY Scheduled PRN Albuterol Sulfate (Ventolin Hfa) 18 Gm Hfa.aer.ad, 2 PUFFS INH Q4H PRN for SOB/WHEEZING, (Reported) Benzonatate (Tessalon Perle) 100 Mg Capsule, 100 MG PO TID PRN for COUGH, (Reported) Magic Mouthwash (First-Mouthwash Blm) 1 Ea Susp, 10 ML SS QID PRN for MUCOSITIS, (Reported) (Diphenhydramine/maalox/lidocaine 1:1:1) May compound if kit unavailable/not covered by insurance Naproxen (Naproxen) 500 Mg Tablet, 500 MG PO BID PRN for PAIN, (Reported) Allergies Coded Allergies: No Known Allergies (Unverified , 10/08/19) AL NORTH DO Aug 06, 2020 17:39
== END 2020-08-06 15:10 | disposition home or self-care (01) | DRG 133 ==
LOC: M ED 17:01 → M ED INP 21:34 → ENRESERV 21:50 → M PCU 22:52 → M MS5PR 08-05 13:35
PROVIDERS: ADMIT Family Medicine; ATTEND Internal Medicine
DX: J96.01 Acute respiratory failure with hypoxia (principal); A41.9 Sepsis, unspecified organism; J84.114 Acute interstitial pneumonitis; J18.9 Pneumonia, unspecified organism; E46 Unspecified protein-calorie malnutrition; D69.6 Thrombocytopenia, unspecified; K76.0 Fatty (change of) liver, not elsewhere classified; R16.1 Splenomegaly, not elsewhere classified; K21.9 Gastro-esophageal reflux disease without esophagitis; U07.0 Vaping-related disorder; J02.0 Streptococcal pharyngitis; Z79.84 Long term (current) use of oral hypoglycemic drugs; Z79.899 Other long term (current) drug therapy; E66.9 Obesity, unspecified; E11.9 Type 2 diabetes mellitus without complications; R74.01 Elevation of levels of liver transaminase levels; D72.829 Elevated white blood cell count, unspecified; J98.11 Atelectasis; Z68.33 Body mass index [BMI] 33.0-33.9, adult; Z20.822 Contact with and (suspected) exposure to COVID-19

== ENCOUNTER → 2020-08-21 | Outpatient (REF) | payer OTHER ==
[~2020-08-21] MED LIST changes: +ALCOPAD25 TOP; +BASA100I SC; +BLOOKIT21 XX; +GLUC1TES2 XX; +INSU1MIS20 SC; +LANC30MI XX; +LANTINJ4 SC; +MAGICMW SS; +METF-877 PO; +PEN1MIS21 SC
[2020-08-21 16:27] LABS: HEMATOCRIT 44.5 % (42.0-52.0); HEMOGLOBIN 14.8 g/dl (13.5-17.5); MEAN CORPUSCULAR HEMOGLOBIN 28.8 pg (27.0-33.0); MEAN CORPUSCULAR HGB CONC 33.3 g/dl (32.0-36.5); MEAN CORPUSCULAR VOLUME 86.6 fl (80.0-96.0); PLATELET COUNT, AUTOMATED 175 10^3/uL (150-450); RED BLOOD COUNT 5.14 10^6/uL (4.30-6.10); WHITE BLOOD COUNT 9.8 10^3/uL (4.0-10.0)
[2020-08-21 16:58] LABS: ALBUMIN 4.1 GM/DL (3.2-5.2); ALT/SGPT 131 U/L (12-78); BILIRUBIN,TOTAL 0.4 MG/DL (0.2-1.0); BLOOD UREA NITROGEN 11 MG/DL (7-18); CALCIUM LEVEL 9.8 MG/DL (8.5-10.1); CARBON DIOXIDE LEVEL 30 MEQ/L (21-32); CHLORIDE LEVEL 102 MEQ/L (98-107); CREATININE FOR GFR 0.82 MG/DL (0.70-1.30); GLOMERULAR FILTRATION RATE > 60.0 (>60); GLUCOSE, FASTING 233 MG/DL (70-100); POTASSIUM SERUM 4.4 MEQ/L (3.5-5.1); SODIUM LEVEL 139 MEQ/L (136-145); TOTAL PROTEIN 7.2 GM/DL (6.4-8.2)
== END ==
LOC: M LAB REF 16:12
DX: B00.81 Herpesviral hepatitis (principal)

== ENCOUNTER → 2020-09-23 | Outpatient (CLI) | payer OTHER ==
--- NOTE | 2020-09-23 13:43 | REP ---
INDICATION: OTH SPECIFIED INTESITIAL PULMONARY CHANGES COMPARISON: 07/28/2020 TECHNIQUE: Axial noncontrast images from the thoracic inlet to the upper abdomen with coronal and sagittal reformations. This CT examination was performed using the following dose reduction techniques: Automated exposure control, adjustment of mA and/or kv according to the patient's size, and use of iterative reconstruction technique. FINDINGS: Acute versus chronic ill-defined and linear fibroatelectatic changes are identified in the bilateral upper lobes, right middle lobe and lingula. The previously noted large areas of consolidation consistent with multifocal pneumonia on prior examination have essentially resolved. No effusion. No pneumothorax. Tracheobronchial tree is patent. Calcified granuloma in the left hilum suggests prior granulomatous disease. Thoracic aorta, pulmonary vasculature, and heart/pericardium are normal. Small nonspecific mediastinal lymph nodes measure less than 10 mm short axis diameter. Surrounding musculoskeletal structures are intact. IMPRESSION: Scattered acute versus chronic fibroatelectatic changes primarily noted in the bilateral upper lobes, right middle lobe and lingula may represent chronic change or residual atelectasis. Large previously noted areas of consolidation have resolved. <Electronically signed by Jordi Noriega > 09/23/20 [id number]
== END ==
LOC: M RAD 13:12
PROVIDERS: ATTEND Internal Medicine Pulmonary Disease
DX: J84.89 Other specified interstitial pulmonary diseases (principal)

== ENCOUNTER 2020-11-02 21:43 | Emergency (ER) | payer OTHER ==
[~2020-11-02] VITALS: Ht 175.3 cm; Wt 94.5 kg
[2020-11-02 21:44] VITALS: BP 141/92
== END 2020-11-02 22:03 | disposition left against medical advice (07) ==
LOC: M ED 21:43
DX: Z53.21 Procedure and treatment not carried out due to patient leaving prior to being seen by health care provider (principal)

== ENCOUNTER → 2021-02-15 | Outpatient (CLI) | payer OTHER ==
[~2021-02-15] MED LIST changes: -BANO25CA; +DIPH-319; -OMEP-221 PO; +OMEP40CA4 PO; +OMEP40CA5 PO; -OMEP40CA97 PO
== END ==
LOC: M RAD 10:55
PROVIDERS: ATTEND Pediatrics
DX: R05 Cough (principal)

== ENCOUNTER 2021-05-30 23:12 | Emergency (ER) | payer OTHER ==
[~2021-05-30] VITALS: Ht 175.3 cm; Wt 104.5 kg
[~2021-05-30 23:12] MED LIST changes: +OMEP-221 PO; -OMEP40CA5 PO
[2021-05-30 23:16] VITALS: BP 131/85
--- OUTSIDE RECORDS SUMMARY | 2021-05-30 23:24 | CCD ---
Author Organization Unknown Address [address] [place] [address] Phone [phone] Care Team Providers Care Department Assistant Name Role Phone ALINE PALACIOS MD 3 [phone] MOHINDER SHI MD 193 [phone] POLO LEUNG MD 2 [phone] Allergies Code Code System Name Reaction Severity Status Onset NKDA Medications Name Status Start Date Stop Date albuterol sulfate HFA 90 mcg/actuation a erosol inhaler INHALE TWO PUFFS BY MOUTH EVERY 4 TO 6 HOURS NEEDED FOR WHEEZING Active Not available amoxicillin 875 mg-potassium clavulanate 125 mg tablet TAKE ONE TABLET BY MOUTH TWICE A DAY FOR 10 DAYS Completed 08/21/2020 Marce Lr U-100 Insulin 100 unit/ mL (3 mL) subcutaneous INJECT 10 UNITS UNDER THE SKIN AT BEDTIME Active Not available BD Alcohol Swabs USE BEFORE MEALS AND AT BEDTIME Active Not tra ilable BD Ultra-Fine Victorina Pen Needle 32 gauge x 5/32" USE BEFORE MEALS AND AT BEDTIME Active Not tra ilable benzonatate 100 mg capsule TAKE ONE CAPSULE BY MOUTH THREE TIMES A DAY FOR COUGH Completed 08/21/2020 first mouthwash blm suspension SWISH AND SPIT 10 ML FOUR TIMES A DAY NEEDED FOR MUCOSITIS Completed 08/21/2020 fluticasone 113 mcg-salmeterol 14 mcg/ac tuation breath activated powdr INHALE ONE PUFF BY MOUTH TWICE A DAY Active No t available hydrocodone 5 mg-acetaminophen 325 mg ta blet TAKE 1 TABLET BY MOUTH EVERY 4 HOURS NEEDED FOR MILD/MODERATE PAIN PS 1 7 MAXIMUM DAILY DOSE 6 TABLETS Completed metformin 1,000 mg tablet Active Not av ailable metformin 500 mg tablet TAKE ONE TABLET BY MOUTH TWICE A DAY Completed naproxen 500 mg tablet TAKE ONE TABLET BY MOUTH TWICE A DAY WITH FOOD Active Not available omeprazole 40 mg capsule,delayed release Active Not available OneTouch Delica Plus Lancet 33 gauge Active Not available OneTouch Ultra Blue Test Strip TEST GLUCOSE THREE TIMES A DAY Active Not avai lable OneTouch Verio Flex Meter USE BEFORE MEALS AND AT BEDTIME Active Not tra ilable OneTouch Verio test strips Active Not a vailable prednisone 10 mg tablet Active Not avai lable sucralfate 1 gram tablet TAKE ONE TABLET BY MOUTH TWO TIMES A DAY Completed 08/21/2020 Problems Name Status Onset Date Source Pain in Left Knee Unknown 09/26/2013 History Disorder of Upper Respiratory System Unknown 10/31/2015 History Pyrexia of Unknown Origin Unknown 10/31/2015 Histor y Hyperglycemia Unknown 10/31/2015 History General Finding of Observation of Patient Unknown 2015 History Bony Swelling of Lumbar Spine Unknown 04/06/2016 Hi story Exposure to Second Hand Tobacco Smoke Unknown 02/17/2017 History Conjunctival Hemorrhage of Bilateral Eyes Unknown 2018 History Headache Disorder Unknown 01/04/2019 History Body Mass Index 30+ - Obesity Active 06/19/2019 Hi story Dyspnea Unknown 06/19/2019 History Clinical Finding Unknown 06/19/2019 History Gastroesophageal Reflux Disease Active 07/01/2019 History Nicotine Dependence Active 03/16/2020 History Clinical Finding Unknown 03/16/2020 History Pneumonia Active 07/18/2020 [place] Virus Hepatitis Active 08/21/2020 Type 2 Diabetes Mellitus Active 08/21/2020 History of Concussion Injury of Brain Active 08/21/2020 Asthma Active History Procedures Date Name Performed by 02/15/2021 XR, Chest, 2 View [facility] nter Radiology [address], [place] [id number] (Work Place) Notes: No known surgical history Results Lab Results Date Name Specimen Result Interpretation Description Value Range Status Address 02/15/2021 SARS CoV 2 RdRp Gene, QL Probe, Respiratory Spec imen Nasopharyngeal Normal Sars-cov-2 negative negative Final [facility] Medical: [address] [facility] 08/21/2020 Cbc Blood venous No observation recorded. [facility] (Lab): [address] [facility] 08/06/2020 Glucose, Fingerstick, Blood High Bedside Glucose 110 mg/dL 70- 105 mg/dL Final [facility]: 83 0 [facility] 08/06/2020 CBC W/ Auto Diff High White Blood Count 13.3 10 4.0-10.0 10 [facility]: [address] [facility] Normal Red Blood Count 4.75 10 4.30-6.10 10 [facility]: [address] [facility] Low Hemoglobin 13.3 g/dL 13.5-17.5 g/dL [facility]: [address] [place] [address] Low Hematocrit 40.1 % 42.0-52.0 % [facility]: [address] [place] [address] Normal Mean Corpuscular Volume 84.4 fL 80.0 -96.0 fL [facility]: [address] [place] [address] Normal Mean Corpuscular Hemoglobin 28.0 pg 27.0-33.0 pg [facility]: [address] [place] [address] Normal Mean Corpuscular HGB Conc 33.2 g/dL 32.0-36.5 g/dL [facility]: [address] [place] [address] Normal Red Cell Distribution Width 12.9 % 1 1.5-14.5 % [facility]: [address] [place] [address] Normal Platelet Count, Automated 282 10 150 -450 10 [facility]: 0 [facility] Normal Neutrophils % 62.4 % 36.0-66.0 % [facility]: [address] [facility] Normal Lymph % 25.8 % 24.0-44.0 % [facility]: [address] [facility] High Hartley % 8.5 % 0.0-5.0 % [facility]: [address] [facility] Normal Eos % 0.6 % 0.0-3.0 % [facility]: 0 [facility] Normal Baso % 0.2 % 0.0-1.0 % [facility]: 0 [facility] Normal Immature Granulocyte % 2.5 % 0-3.0 % [facility]: 0 [facility] Normal Nucleated Red Blood Cell % 0.0 % 0- 0 % [facility]: [address] [facility] Normal Neutrophils # 8.3 10 1.5-8.5 10 [facility]: [address] [facility] Normal Lymph # 3.4 10 1.5-5.0 10 [facility]: [address] [facility] High [place] # 1.1 10 0.0-0.8 10 [facility]: [address] [facility] Normal Eos # 0.1 10 0.0-0.5 10 [facility]: [address] [facility] Normal Baso # 0.0 10 0.0-0.2 10 [facility]: [address] [facility] 08/06/2020 CMP, Serum or Plasma Normal Glucose, Fastin g 82 mg/dL 70-100 mg/dL [facility]: [address] 0 [facility] High Blood Urea Nitrogen 20 mg/dL 7-18 mg /dL [facility]: [address] [facility] Normal Creatinine for GFR 0.72 mg/dL 0.70-1 .30 mg/dL [facility]: 0 [facility] Normal Glomerular Filtration Rate > 60.0 >6 0 [facility]: [address] [facility] Normal Sodium Level 141 mEq/L 136-145 mEq/L [facility]: [address] [facility] Normal Potassium Serum 3.9 mEq/L 3.5-5.1 mE q/L [facility]: [address] [facility] Normal Chloride Level 102 mEq/L 98-107 mEq/ L [facility]: 0 [facility] Normal Carbon Dioxide Level 29 mEq/L 21-32 mEq/L [facility]: [address] [facility] Normal Anion Gap 10 mEq/L 8-16 mEq/L [facility]: [address] [facility] Normal Calcium Level 8.7 mg/dL 8.5-10.1 mg/ dL [facility]: [address] [facility] High AST/SGOT 49 U/L 7-37 U/L [facility]: [address] [facility] High ALT/SGPT 182 U/L 12-78 U/L [facility]: [address] [facility] Normal Alkaline Phosphatase 52 U/L 45-117 U /L [facility]: [address] [facility] Normal Bilirubin,total 0.3 mg/dL 0.2-1.0 mg /dL [facility]: [address] [facility] Low Total Protein 6.0 gm/dL 6.4-8.2 gm/d L [facility]: [address] [facility] Low Albumin 3.0 gm/dL 3.2-5.2 gm/dL Jaylin l [facility]: [address] [facility] Normal Albumin/globulin Ratio 1.0 [facility]: [address] [facility] 08/06/2020 Magnesium, Serum or Plasma Normal Magnesium Level 2.1 mg/dL 1.8-2.4 mg/dL [facility]: [address] 0 [facility] 08/06/2020 Glucose, Fingerstick, Blood High Bedside Glucose 173 mg/dL 70- 105 mg/dL [facility]: 83 0 [facility] 08/05/2020 CBC W/ Auto Diff High White Blood Count 17.4 10 4.0-10.0 10 [facility]: [address] [facility] Normal Red Blood Count 4.92 10 4.30-6.10 10 [facility]: [address] [facility] Normal Hemoglobin 13.6 g/dL 13.5-17.5 g/dL [facility]: [address] [facility] Normal Hematocrit 42.0 % 42.0-52.0 % [facility]: [address] [facility] Normal Mean Corpuscular Volume 85.4 fL 80.0 -96.0 fL [facility]: [address] [facility] Normal Mean Corpuscular Hemoglobin 27.6 pg 27.0-33.0 pg Final [facility]: [address] [facility] Normal Mean Corpuscular HGB Conc 32.4 g/dL 32.0-36.5 g/dL Final [facility]: [address] [facility] Normal Red Cell Distribution Width 12.6 % 1 1.5-14.5 % [facility]: [address] [place] [address] Normal Platelet Count, Automated 323 10 150 -450 10 [facility]: [address] [facility] High Neutrophils % 84.8 % 36.0-66.0 % [facility]: [address] [facility] Low Lymph % 7.9 % 24.0-44.0 % Final [facility]: [address] [facility] High [place]ley % 5.5 % 0.0-5.0 % Final [facility]: 0 [facility] Normal Eos % 0.0 % 0.0-3.0 % [facility]: [address] [facility] Normal Baso % 0.1 % 0.0-1.0 % Final [facility]: 0 [facility] Normal Immature Granulocyte % 1.7 % 0-3.0 % [facility]: [address] [place] [address] Normal Nucleated Red Blood Cell % 0.0 % 0- 0 % [facility]: [address] [facility] High Neutrophils # 14.8 10 1.5-8.5 10 [facility]: [address] [facility] Low Lymph # 1.4 10 1.5-5.0 10 Final [facility]: 0 [facility] High [place]ley # 1.0 10 0.0-0.8 10 [facility]: 0 [facility] Normal Eos # 0.0 10 0.0-0.5 10 [facility]: [address] [facility] Normal Baso # 0.0 10 0.0-0.2 10 [facility]: [address] [facility] 08/05/2020 CMP, Serum or Plasma High Glucose, Fastin g 177 mg/dL 70-100 mg/dL [facility]: 83 0 [facility] Normal Blood Urea Nitrogen 18 mg/dL 7-18 mg /dL [facility]: [address] [facility] Normal Creatinine for GFR 0.76 mg/dL 0.70-1 .30 mg/dL [facility]: [address] [facility] Normal Glomerular Filtration Rate > 60.0 >6 0 [facility]: [address] [facility] Normal Sodium Level 140 mEq/L 136-145 mEq/L [facility]: [address] [facility] Normal Potassium Serum 4.6 mEq/L 3.5-5.1 mE q/L [facility]: [address] [facility] Normal Chloride Level 102 mEq/L 98-107 mEq/ L [facility]: [address] [facility] Normal Carbon Dioxide Level 31 mEq/L 21-32 mEq/L [facility]: [address] [facility] Low Anion Gap 7 mEq/L 8-16 mEq/L [facility]: [address] [facility] Normal Calcium Level 9.3 mg/dL 8.5-10.1 mg/ dL [facility]: [address] [facility] Normal AST/SGOT 34 U/L 7-37 U/L [facility]: [address] [facility] High ALT/SGPT 194 U/L 12-78 U/L [facility]: [address] [facility] Normal Alkaline Phosphatase 57 U/L 45-117 U /L [facility]: [address] [facility] Normal Bilirubin,total 0.5 mg/dL 0.2-1.0 mg /dL [facility]: [address] [facility] Normal Total Protein 6.8 gm/dL 6.4-8.2 gm/d L [facility]: [address] [facility] Normal Albumin 3.2 gm/dL 3.2-5.2 gm/dL Jaylin emani [facility]: [address] [facility] Normal Albumin/globulin Ratio 0.9 [facility]: [address] [facility] 08/05/2020 Magnesium, Serum or Plasma Normal Magnesium Level 2.3 mg/dL 1.8-2.4 mg/dL [facility]: [address] 0 [facility] 08/05/2020 Glucose, Fingerstick, Blood High Bedside Glucose 237 mg/dL 70- 105 mg/dL [facility]: [address] 0 [facility] 08/05/2020 Glucose, Fingerstick, Blood High Bedside Glucose 283 mg/dL 70- 105 mg/dL [facility]: 83 0 [facility] 08/05/2020 Glucose, Fingerstick, Blood High Bedside Glucose 317 mg/dL 70- 105 mg/dL [facility]: 83 0 [facility] 08/04/2020 CBC W/ Auto Diff High White Blood Count 18.5 10 4.0-10.0 10 [facility]: [address] [facility] Normal Red Blood Count 4.69 10 4.30-6.10 10 [facility]: [address] [facility] Low Hemoglobin 12.8 g/dL 13.5-17.5 g/dL [facility]: [address] [facility] Low Hematocrit 39.1 % 42.0-52.0 % [facility]: [address] [facility] Normal Mean Corpuscular Volume 83.4 fL 80.0 -96.0 fL [facility]: [address] [facility] Normal Mean Corpuscular Hemoglobin 27.3 pg 27.0-33.0 pg [facility]: [address] [facility] Normal Mean Corpuscular HGB Conc 32.7 g/dL 32.0-36.5 g/dL [facility]: [address] [facility] Normal Red Cell Distribution Width 12.4 % 1 1.5-14.5 % [facility]: [address] [facility] Normal Platelet Count, Automated 332 10 150 -450 10 [facility]: [address] [facility] High Neutrophils % 86.6 % 36.0-66.0 % [facility]: [address] [facility] Low Lymph % 6.8 % 24.0-44.0 % [facility]: [address] [facility] High [place] % 5.1 % 0.0-5.0 % Final [facility]: [address] [facility] Normal Eos % 0.0 % 0.0-3.0 % [facility]: [address] [facility] Normal Baso % 0.2 % 0.0-1.0 % [facility]: [address] [place] [address] Normal Immature Granulocyte % 1.3 % 0-3.0 % [facility]: [address] [facility] Normal Nucleated Red Blood Cell % 0.0 % 0- 0 % [facility]: [address] [facility] High Neutrophils # 16.0 10 1.5-8.5 10 [facility]: [address] [facility] Low Lymph # 1.3 10 1.5-5.0 10 [facility]: [address] [facility] High [place] # 0.9 10 0.0-0.8 10 [facility]: [address] [facility] Normal Eos # 0.0 10 0.0-0.5 10 [facility]: [address] [facility] Normal Baso # 0.0 10 0.0-0.2 10 [facility]: 0 [facility] 08/04/2020 CMP, Serum or Plasma High Glucose, Fastin g 191 mg/dL 70-100 mg/dL [facility]: 83 0 [facility] High Blood Urea Nitrogen 19 mg/dL 7-18 mg /dL [facility]: 0 [facility] Normal Creatinine for GFR 0.73 mg/dL 0.70-1 .30 mg/dL [facility]: 0 [facility] Normal Glomerular Filtration Rate > 60.0 >6 0 [facility]: [address] [facility] Normal Sodium Level 136 mEq/L 136-145 mEq/L [facility]: 0 [facility] Normal Potassium Serum 4.2 mEq/L 3.5-5.1 mE q/L [facility]: [address] [facility] Normal Chloride Level 102 mEq/L 98-107 mEq/ L [facility]: [address] [facility] Normal Carbon Dioxide Level 30 mEq/L 21-32 mEq/L [facility]: 0 [facility] Low Anion Gap 4 mEq/L 8-16 mEq/L [facility]: 0 [facility] Normal Calcium Level 8.9 mg/dL 8.5-10.1 mg/ dL [facility]: [address] [facility] Normal AST/SGOT 37 U/L 7-37 U/L [facility]: [address] [facility] High ALT/SGPT 195 U/L 12-78 U/L [facility]: [address] [facility] Normal Alkaline Phosphatase 52 U/L 45-117 U /L [facility]: 0 [facility] Normal Bilirubin,total 0.4 mg/dL 0.2-1.0 mg /dL [facility]: [address] [facility] Normal Total Protein 6.8 gm/dL 6.4-8.2 gm/d L [facility]: 0 [facility] Low Albumin 2.9 gm/dL 3.2-5.2 gm/dL [facility]: [address] [facility] Normal Albumin/globulin Ratio 0.7 [facility]: 0 [facility] 08/04/2020 Magnesium, Serum or Plasma Normal Magnesium Level 2.2 mg/dL 1.8-2.4 mg/dL [facility]: 83 0 [facility] 08/04/2020 Glucose, Fingerstick, Blood High Bedside Glucose 339 mg/dL 70- 105 mg/dL [facility]: 83 0 [facility] 08/04/2020 Glucose, Fingerstick, Blood High Bedside Glucose 386 mg/dL 70- 105 mg/dL [facility]: 83 0 [facility] 08/04/2020 Glucose, Fingerstick, Blood High Bedside Glucose 418 mg/dL 70- 105 mg/dL [facility]: 83 0 [facility] 08/03/2020 CBC W/ Auto Diff High White Blood Count 19.1 10 4.0-10.0 10 [facility]: [address] [facility] Normal Red Blood Count 4.68 10 4.30-6.10 10 [facility]: [address] [facility] Low Hemoglobin 13.1 g/dL 13.5-17.5 g/dL [facility]: [address] [facility] Low Hematocrit 39.4 % 42.0-52.0 % [facility]: [address] [facility] Normal Mean Corpuscular Volume 84.2 fL 80.0 -96.0 fL [facility]: [address] [facility] Normal Mean Corpuscular Hemoglobin 28.0 pg 27.0-33.0 pg [facility]: [address] [facility] Normal Mean Corpuscular HGB Conc 33.2 g/dL 32.0-36.5 g/dL [facility]: [address] [facility] Normal Red Cell Distribution Width 12.0 % 1 1.5-14.5 % [facility]: [address] [facility] Normal Platelet Count, Automated 344 10 150 -450 10 [facility]: [address] [facility] High Neutrophils % 88.9 % 36.0-66.0 % [facility]: [address] [facility] Low Lymph % 6.3 % 24.0-44.0 % [facility]: [address] [facility] Normal [place] % 4.0 % 0.0-5.0 % [facility]: [address] [facility] Normal Eos % 0.0 % 0.0-3.0 % [facility]: [address] [facility] Normal Baso % 0.1 % 0.0-1.0 % [facility]: [address] [facility] Normal Immature Granulocyte % 0.7 % 0-3.0 % [facility]: [address] [facility] Normal Nucleated Red Blood Cell % 0.0 % 0- 0 % [facility]: [address] [facility] High Neutrophils # 17.0 10 1.5-8.5 10 [facility]: [address] [facility] Low Lymph # 1.2 10 1.5-5.0 10 [facility]: [address] [facility] Normal [place] # 0.8 10 0.0-0.8 10 [facility]: [address] [facility] Normal Eos # 0.0 10 0.0-0.5 10 [facility]: [address] [facility] Normal Baso # 0.0 10 0.0-0.2 10 [facility]: [address] [facility] 08/03/2020 CMP, Serum or Plasma High Glucose, Fastin g 299 mg/dL 70-100 mg/dL [facility]: 83 0 [facility] Normal Blood Urea Nitrogen 17 mg/dL 7-18 mg /dL [facility]: [address] [facility] Normal Creatinine for GFR 0.84 mg/dL 0.70-1 .30 mg/dL [facility]: 0 [facility] Normal Glomerular Filtration Rate > 60.0 >6 0 [facility]: [address] [facility] Low Sodium Level 134 mEq/L 136-145 mEq/L [facility]: [address] [facility] Normal Potassium Serum 4.3 mEq/L 3.5-5.1 mE q/L [facility]: [address] [facility] Normal Chloride Level 100 mEq/L 98-107 mEq/ L [facility]: [address] [facility] Normal Carbon Dioxide Level 27 mEq/L 21-32 mEq/L [facility]: [address] [facility] Low Anion Gap 7 mEq/L 8-16 mEq/L [facility]: [address] [facility] Normal Calcium Level 9.1 mg/dL 8.5-10.1 mg/ dL [facility]: [address] [facility] High AST/SGOT 44 U/L 7-37 U/L [facility]: [address] [facility] High ALT/SGPT 214 U/L 12-78 U/L [facility]: [address] [facility] Normal Alkaline Phosphatase 60 U/L 45-117 U /L [facility]: [address] [facility] Normal Bilirubin,total 0.5 mg/dL 0.2-1.0 mg /dL [facility]: [address] [facility] Normal Total Protein 6.6 gm/dL 6.4-8.2 gm/d L [facility]: [address] [facility] Low Albumin 2.9 gm/dL 3.2-5.2 gm/dL [facility] l [facility]: [address] [facility] Normal Albumin/globulin Ratio 0.8 [facility]: [address] [facility] 08/03/2020 Magnesium, Serum or Plasma High Magnesium Level 2.5 mg/dL 1.8- 2.4 mg/dL [facility]: 83 0 [facility] 08/03/2020 Glucose, Fingerstick, Blood High Bedside Glucose 310 mg/dL 70- 105 mg/dL [facility]: 83 0 [facility] 08/03/2020 Glucose, Fingerstick, Blood High Bedside Glucose 359 mg/dL 70- 105 mg/dL [facility]: 83 0 [facility] 08/03/2020 Glucose, Fingerstick, Blood High Bedside Glucose 353 mg/dL 70- 105 mg/dL [facility]: 83 0 [facility] 08/03/2020 Glucose, Fingerstick, Blood High Bedside Glucose 401 mg/dL 70- 105 mg/dL [facility]: 83 0 [facility] 08/02/2020 CBC W/ Auto Diff High White Blood Count 19.1 10 4.0-10.0 10 [facility]: [address] [facility] Normal Red Blood Count 4.70 10 4.30-6.10 10 [facility]: [address] [facility] Low Hemoglobin 13.1 g/dL 13.5-17.5 g/dL [facility]: [address] [facility] Low Hematocrit 39.8 % 42.0-52.0 % [facility]: [address] [facility] Normal Mean Corpuscular Volume 84.7 fL 80.0 -96.0 fL [facility]: [address] [facility] Normal Mean Corpuscular Hemoglobin 27.9 pg 27.0-33.0 pg [facility]: [address] [facility] Normal Mean Corpuscular HGB Conc 32.9 g/dL 32.0-36.5 g/dL [facility]: [address] [facility] Normal Red Cell Distribution Width 11.8 % 1 1.5-14.5 % [facility]: [address] [facility] Normal Platelet Count, Automated 347 10 150 -450 10 [facility]: [address] [facility] High Neutrophils % 84.4 % 36.0-66.0 % [facility]: [address] [facility] Low Lymph % 8.6 % 24.0-44.0 % [facility]: [address] [facility] High Hartley % 6.1 % 0.0-5.0 % [facility]: [address] [facility] Normal Eos % 0.0 % 0.0-3.0 % [facility]: [address] [facility] Normal Baso % 0.1 % 0.0-1.0 % [facility]: [address] [facility] Normal Immature Granulocyte % 0.8 % 0-3.0 % [facility]: [address] [facility] Normal Nucleated Red Blood Cell % 0.0 % 0- 0 % [facility]: [address] [facility] High Neutrophils # 16.1 10 1.5-8.5 10 [facility]: [address] [facility] Normal Lymph # 1.7 10 1.5-5.0 10 [facility]: [address] [facility] High Hartley # 1.2 10 0.0-0.8 10 [facility]: [address] [facility] Normal Eos # 0.0 10 0.0-0.5 10 [facility]: [address] [facility] Normal Baso # 0.0 10 0.0-0.2 10 [facility]: [address] [facility] 08/02/2020 CMP, Serum or Plasma High Glucose, Fastin g 208 mg/dL 70-100 mg/dL [facility]: 83 0 [facility] Normal Blood Urea Nitrogen 17 mg/dL 7-18 mg /dL [facility]: 0 [facility] Normal Creatinine for GFR 0.84 mg/dL 0.70-1 .30 mg/dL [facility]: [address] [facility] Normal Glomerular Filtration Rate > 60.0 >6 0 [facility]: [address] [facility] Low Sodium Level 134 mEq/L 136-145 mEq/L [facility]: 0 [facility] Normal Potassium Serum 4.1 mEq/L 3.5-5.1 mE q/L [facility]: [address] [facility] Normal Chloride Level 98 mEq/L 98-107 mEq/L [facility]: [address] [facility] Normal Carbon Dioxide Level 30 mEq/L 21-32 mEq/L [facility]: [address] [facility] Low Anion Gap 6 mEq/L 8-16 mEq/L [facility]: [address] [facility] Normal Calcium Level 9.2 mg/dL 8.5-10.1 mg/ dL [facility]: [address] [facility] High AST/SGOT 46 U/L 7-37 U/L [facility]: [address] [facility] High ALT/SGPT 180 U/L 12-78 U/L [facility]: [address] [facility] Normal Alkaline Phosphatase 60 U/L 45-117 U /L [facility]: [address] [facility] Normal Bilirubin,total 0.8 mg/dL 0.2-1.0 mg /dL [facility]: [address] [facility] Normal Total Protein 6.7 gm/dL 6.4-8.2 gm/d L [facility]: [address] [facility] Low Albumin 2.9 gm/dL 3.2-5.2 gm/dL [facility]: [address] [facility] Normal Albumin/globulin Ratio 0.8 [facility]: [address] [facility] 08/02/2020 Magnesium, Serum or Plasma Normal Magnesium Level 2.4 mg/dL 1.8-2.4 mg/dL [facility]: 83 0 [facility] 08/02/2020 Glucose, Fingerstick, Blood High Bedside Glucose 329 mg/dL 70- 105 mg/dL [facility]: 83 0 [facility] 08/02/2020 Glucose, Fingerstick, Blood High Bedside Glucose 382 mg/dL 70- 105 mg/dL [facility]: 83 0 [facility] 08/02/2020 Glucose, Fingerstick, Blood High Bedside Glucose 439 mg/dL 70- 105 mg/dL [facility]: 83 0 [facility] 08/01/2020 Glucose, Fingerstick, Blood High Bedside Glucose 309 mg/dL 70- 105 mg/dL [facility]: 83 0 [facility] 08/01/2020 CBC W/ Auto Diff High White Blood Count 15.9 10 4.0-10.0 10 [facility]: [address] [facility] Normal Red Blood Count 4.70 10 4.30-6.10 10 [facility]: [address] [facility] Low Hemoglobin 13.1 g/dL 13.5-17.5 g/dL [facility]: [address] [facility] Low Hematocrit 39.3 % 42.0-52.0 % [facility]: [address] [facility] Normal Mean Corpuscular Volume 83.6 fL 80.0 -96.0 fL [facility]: [address] [facility] Normal Mean Corpuscular Hemoglobin 27.9 pg 27.0-33.0 pg [facility]: [address] [facility] Normal Mean Corpuscular HGB Conc 33.3 g/dL 32.0-36.5 g/dL [facility]: [address] [facility] Normal Red Cell Distribution Width 12.1 % 1 1.5-14.5 % [facility]: [address] [facility] Normal Platelet Count, Automated 375 10 150 -450 10 [facility]: [address] [facility] High Neutrophils % 84.3 % 36.0-66.0 % [facility]: [address] [facility] Low Lymph % 9.6 % 24.0-44.0 % [facility]: [address] [facility] Normal Hartley % 5.0 % 0.0-5.0 % [facility]: [address] [facility] Normal Eos % 0.0 % 0.0-3.0 % [facility]: [address] [facility] Normal Baso % 0.1 % 0.0-1.0 % [facility]: [address] [facility] Normal Immature Granulocyte % 1.0 % 0-3.0 % [facility]: [address] [facility] Normal Nucleated Red Blood Cell % 0.0 % 0- 0 % [facility]: [address] [facility] High Neutrophils # 13.4 10 1.5-8.5 10 [facility]: [address] [facility] Normal Lymph # 1.5 10 1.5-5.0 10 [facility]: [address] [facility] Normal Hartley # 0.8 10 0.0-0.8 10 [facility]: [address] [facility] Normal Eos # 0.0 10 0.0-0.5 10 [facility]: [address] [facility] Normal Baso # 0.0 10 0.0-0.2 10 [facility]: [address] [facility] 08/01/2020 CMP, Serum or Plasma High Glucose, Fastin g 301 mg/dL 70-100 mg/dL [facility]: 83 0 [facility] High Blood Urea Nitrogen 21 mg/dL 7-18 mg /dL [facility]: 0 [facility] Normal Creatinine for GFR 0.91 mg/dL 0.70-1 .30 mg/dL [facility]: 0 [facility] Normal Glomerular Filtration Rate > 60.0 >6 0 [facility]: [address] [facility] Low Sodium Level 134 mEq/L 136-145 mEq/L [facility]: [address] [facility] Normal Potassium Serum 4.9 mEq/L 3.5-5.1 mE q/L [facility]: 0 [facility] Low Chloride Level 97 mEq/L 98-107 mEq/L [facility]: [address] [facility] Normal Carbon Dioxide Level 28 mEq/L 21-32 mEq/L [facility]: [address] [facility] Normal Anion Gap 9 mEq/L 8-16 mEq/L [facility]: [address] [facility] Normal Calcium Level 9.0 mg/dL 8.5-10.1 mg/ dL [facility]: [address] [facility] High AST/SGOT 41 U/L 7-37 U/L [facility]: [address] [facility] High ALT/SGPT 129 U/L 12-78 U/L [facility]: [address] [facility] Normal Alkaline Phosphatase 64 U/L 45-117 U /L [facility]: [address] [facility] Normal Bilirubin,total 0.6 mg/dL 0.2-1.0 mg /dL [facility]: [address] [facility] Normal Total Protein 7.1 gm/dL 6.4-8.2 gm/d L [facility]: [address] [facility] Low Albumin 3.0 gm/dL 3.2-5.2 gm/dL [facility] l [facility]: [address] [facility] Normal Albumin/globulin Ratio 0.7 [facility]: [address] [facility] 08/01/2020 Magnesium, Serum or Plasma High Magnesium Level 2.6 mg/dL 1.8- 2.4 mg/dL [facility]: 83 0 [facility] 08/01/2020 Glucose, Fingerstick, Blood High Bedside Glucose 428 mg/dL 70- 105 mg/dL [facility]: 83 0 [facility] 08/01/2020 Glucose, Fingerstick, Blood High Bedside Glucose 369 mg/dL 70- 105 mg/dL [facility]: 83 0 [facility] 08/01/2020 Glucose, Fingerstick, Blood High Bedside Glucose 461 mg/dL 70- 105 mg/dL [facility]: 83 0 [facility] 07/31/2020 CBC W/ Auto Diff High White Blood Count 16.2 10 4.0-10.0 10 [facility]: [address] [facility] Normal Red Blood Count 4.44 10 4.30-6.10 10 [facility]: [address] [facility] Low Hemoglobin 12.3 g/dL 13.5-17.5 g/dL [facility]: [address] [place] [address] Low Hematocrit 38.0 % 42.0-52.0 % [facility]: [address] [place] [address] Normal Mean Corpuscular Volume 85.6 fL 80.0 -96.0 fL [facility]: [address] [place] [address] Normal Mean Corpuscular Hemoglobin 27.7 pg 27.0-33.0 pg [facility]: [address] [place] [address] Normal Mean Corpuscular HGB Conc 32.4 g/dL 32.0-36.5 g/dL [facility]: [address] [place] [address] Normal Red Cell Distribution Width 12.2 % 1 1.5-14.5 % [facility]: [address] [place] [address] Normal Platelet Count, Automated 335 10 150 -450 10 [facility]: 0 [facility] High Neutrophils % 87.2 % 36.0-66.0 % [facility]: 0 [facility] Low Lymph % 7.7 % 24.0-44.0 % [facility]: [address] [facility] Normal Hartley % 4.1 % 0.0-5.0 % [facility]: [address] [facility] Normal Eos % 0.0 % 0.0-3.0 % [facility]: [address] [facility] Normal Baso % 0.1 % 0.0-1.0 % [facility]: 0 [facility] Normal Immature Granulocyte % 0.9 % 0-3.0 % [facility]: [address] [place] [address] Normal Nucleated Red Blood Cell % 0.0 % 0- 0 % [facility]: [address] [place] [address] High Neutrophils # 14.1 10 1.5-8.5 10 [facility]: [address] [facility] Low Lymph # 1.2 10 1.5-5.0 10 [facility]: [address] [facility] Normal Hartley # 0.7 10 0.0-0.8 10 [facility]: [address] [facility] Normal Eos # 0.0 10 0.0-0.5 10 [facility]: [address] [facility] Normal Baso # 0.0 10 0.0-0.2 10 [facility]: [address] [facility] 07/31/2020 ESR (Erythrocyte Sedimentation Rate), Blood Hig h Erythrocyte Sedimentation Rate 56 mm/HR 0-15 mm/HR [facility]: [address] [facility] 07/31/2020 BMP, Serum or Plasma High Glucose, Fastin g 321 mg/dL 70-100 mg/dL [facility]: 83 0 [facility] High Blood Urea Nitrogen 22 mg/dL 7-18 mg /dL [facility]: [address] [facility] Normal Creatinine for GFR 0.88 mg/dL 0.70-1 .30 mg/dL [facility]: 0 [facility] Normal Glomerular Filtration Rate > 60.0 >6 0 [facility]: [address] [facility] Low Sodium Level 134 mEq/L 136-145 mEq/L [facility]: [address] [facility] Normal Potassium Serum 4.6 mEq/L 3.5-5.1 mE q/L [facility]: [address] [facility] Normal Chloride Level 100 mEq/L 98-107 mEq/ L [facility]: [address] [facility] Normal Carbon Dioxide Level 28 mEq/L 21-32 mEq/L [facility]: [address] [facility] Low Anion Gap 6 mEq/L 8-16 mEq/L [facility]: [address] [facility] Normal Calcium Level 9.0 mg/dL 8.5-10.1 mg/ dL [facility]: [address] [facility] 07/31/2020 Magnesium, Serum or Plasma High Magnesium Level 2.5 mg/dL 1.8- 2.4 mg/dL [facility]: 83 0 [facility] 07/31/2020 C Reactive Protein, QN, Serum or Plasma High C Reactive Protein Quantitativ 2.38 mg/dL 0.00-0.30 mg/dL [facility]: [address] [facility] 07/31/2020 Glucose, Fingerstick, Blood High Bedside Glucose 366 mg/dL 70- 105 mg/dL [facility]: 83 0 [facility] 07/31/2020 Procalcitonin, Serum Normal Procalcitonin 0.16 [facility]: [address] [facility] 07/31/2020 Glucose, Fingerstick, Blood High Bedside Glucose 390 mg/dL 70- 105 mg/dL [facility]: 83 0 [facility] 07/31/2020 Glucose, Fingerstick, Blood High Bedside Glucose 429 mg/dL 70- 105 mg/dL [facility]: 83 0 [facility] 07/30/2020 CBC W/ Auto Diff High White Blood Count 17.9 10 4.0-10.0 10 [facility]: [address] [facility] Normal Red Blood Count 4.39 10 4.30-6.10 10 [facility]: [address] [facility] Low Hemoglobin 11.9 g/dL 13.5-17.5 g/dL [facility]: [address] [facility] Low Hematocrit 37.1 % 42.0-52.0 % [facility]: 0 [facility] Normal Mean Corpuscular Volume 84.5 fL 80.0 -96.0 fL [facility]: [address] [facility] Normal Mean Corpuscular Hemoglobin 27.1 pg 27.0-33.0 pg [facility]: [address] [facility] Normal Mean Corpuscular HGB Conc 32.1 g/dL 32.0-36.5 g/dL Final [facility]: [address] [facility] Normal Red Cell Distribution Width 12.2 % 1 1.5-14.5 % [facility]: [address] [place] [address] Normal Platelet Count, Automated 311 10 150 -450 10 [facility]: [address] [facility] High Neutrophils % 88.8 % 36.0-66.0 % [facility]: [address] [facility] Low Lymph % 6.5 % 24.0-44.0 % Final [facility]: [address] [facility] Normal Hartley % 4.0 % 0.0-5.0 % Final [facility]: [address] [place] [address] Normal Eos % 0.0 % 0.0-3.0 % [facility]: [address] [place] [address] Normal Baso % 0.1 % 0.0-1.0 % Final [facility]: [address] [place] [address] Normal Immature Granulocyte % 0.6 % 0-3.0 % [facility]: [address] [place] [address] Normal Nucleated Red Blood Cell % 0.0 % 0- 0 % [facility]: [address] [place] [address] High Neutrophils # 15.9 10 1.5-8.5 10 [facility]: 0 [facility] Low Lymph # 1.2 10 1.5-5.0 10 Final [facility]: [address] [facility] Normal Hartley # 0.7 10 0.0-0.8 10 [facility]: [address] [place] [address] Normal Eos # 0.0 10 0.0-0.5 10 [facility]: 0 [facility] Normal Baso # 0.0 10 0.0-0.2 10 [facility]: [address] [place] [address] 07/30/2020 BMP, Serum or Plasma High Glucose, Fastin g 387 mg/dL 70-100 mg/dL [facility]: 83 0 [facility] Dh Blood Urea Nitrogen 20 mg/dL 7-18 mg /dL [facility]: [address] [facility] Normal Creatinine for GFR 0.81 mg/dL 0.70-1 .30 mg/dL [facility]: [address] [facility] Normal Glomerular Filtration Rate > 60.0 >6 0 [facility]: [address] [facility] Normal Sodium Level 138 mEq/L 136-145 mEq/L [facility]: [address] [facility] Normal Potassium Serum 4.8 mEq/L 3.5-5.1 mE q/L [facility]: [address] [facility] Normal Chloride Level 103 mEq/L 98-107 mEq/ L [facility]: [address] [facility] Normal Carbon Dioxide Level 27 mEq/L 21-32 mEq/L [facility]: [address] [facility] Normal Anion Gap 8 mEq/L 8-16 mEq/L [facility]: [address] [facility] Normal Calcium Level 8.5 mg/dL 8.5-10.1 mg/ dL [facility]: [address] [facility] 07/30/2020 Magnesium, Serum or Plasma High Magnesium Level 2.5 mg/dL 1.8- 2.4 mg/dL [facility]: 83 0 [facility] 07/30/2020 Glucose, Fingerstick, Blood High Bedside Glucose 383 mg/dL 70- 105 mg/dL [facility]: 83 0 [facility] 07/30/2020 Glucose, Fingerstick, Blood High Bedside Glucose 432 mg/dL 70- 105 mg/dL [facility]: 83 0 [facility] 07/30/2020 Glucose, Fingerstick, Blood High Bedside Glucose 400 mg/dL 70- 105 mg/dL [facility]: 83 0 [facility] 07/30/2020 Glucose, Fingerstick, Blood High Bedside Glucose 478 mg/dL 70- 105 mg/dL [facility]: 83 0 [facility] 07/29/2020 CBC W/ Auto Diff High White Blood Count 11.1 10 4.0-10.0 10 [facility]: [address] [facility] Normal Red Blood Count 4.52 10 4.30-6.10 10 [facility]: [address] [facility] Low Hemoglobin 12.5 g/dL 13.5-17.5 g/dL [facility]: [address] [facility] Low Hematocrit 38.5 % 42.0-52.0 % [facility]: [address] [facility] Normal Mean Corpuscular Volume 85.2 fL 80.0 -96.0 fL [facility]: [address] [facility] Normal Mean Corpuscular Hemoglobin 27.7 pg 27.0-33.0 pg [facility]: [address] [facility] Normal Mean Corpuscular HGB Conc 32.5 g/dL 32.0-36.5 g/dL [facility]: [address] [facility] Normal Red Cell Distribution Width 12.2 % 1 1.5-14.5 % [facility]: [address] [facility] Normal Platelet Count, Automated 254 10 150 -450 10 [facility]: [address] [facility] High Neutrophils % 87.2 % 36.0-66.0 % [facility]: [address] [facility] Low Lymph % 8.8 % 24.0-44.0 % [facility]: [address] [facility] Normal Hartley % 3.1 % 0.0-5.0 % [facility]: [address] [facility] Normal Eos % 0.0 % 0.0-3.0 % [facility]: [address] [facility] Normal Baso % 0.1 % 0.0-1.0 % [facility]: [address] [facility] Normal Immature Granulocyte % 0.8 % 0-3.0 % [facility]: 8[address] [facility] Normal Nucleated Red Blood Cell % 0.0 % 0- 0 % [facility]: [address] [facility] High Neutrophils # 9.7 10 1.5-8.5 10 [place]: 8[address] [facility] Low Lymph # 1.0 10 1.5-5.0 10 [facility]: 8[address] [facility] Normal Hartley # 0.3 10 0.0-0.8 10 [facility]: 8[address] [facility] Normal Eos # 0.0 10 0.0-0.5 10 [facility]: 8[address] [facility] Normal Baso # 0.0 10 0.0-0.2 10 [facility]: 8[address] [facility] 07/29/2020 BMP, Serum or Plasma High Glucose, Fastin g 284 mg/dL 70-100 mg/dL [facility]: 83 0 [facility] Normal Blood Urea Nitrogen 11 mg/dL 7-18 mg /dL [facility]: [address] [facility] Normal Creatinine for GFR 0.75 mg/dL 0.70-1 .30 mg/dL [facility]: 0 [facility] Normal Glomerular Filtration Rate > 60.0 >6 0 [facility]: [address] [facility] Low Sodium Level 134 mEq/L 136-145 mEq/L [facility]: 8[address] [facility] Normal Potassium Serum 4.8 mEq/L 3.5-5.1 mE q/L [facility]: [address] [facility] Normal Chloride Level 100 mEq/L 98-107 mEq/ L [facility]: 0 [facility] Normal Carbon Dioxide Level 29 mEq/L 21-32 mEq/L [facility]: 0 [facility] Low Anion Gap 5 mEq/L 8-16 mEq/L [facility]: [address] [facility] Normal Calcium Level 8.7 mg/dL 8.5-10.1 mg/ dL [facility]: [address] [facility] 07/29/2020 Magnesium, Serum or Plasma Normal Magnesium Level 2.4 mg/dL 1.8-2.4 mg/dL [facility]: 83 0 [facility] 07/29/2020 Glucose, Fingerstick, Blood High Bedside Glucose 391 mg/dL 70- 105 mg/dL [facility]: 83 0 [facility] 07/29/2020 Glucose, Fingerstick, Blood High Bedside Glucose 422 mg/dL 70- 105 mg/dL [facility]: 83 0 [facility] 07/29/2020 Glucose, Fingerstick, Blood High Bedside Glucose 343 mg/dL 70- 105 mg/dL [facility]: 83 0 [facility] 07/28/2020 CBC W/ Auto Diff High White Blood Count 11.4 10 4.0-10.0 10 [facility]: 8[address] [facility] Normal Red Blood Count 4.52 10 4.30-6.10 10 [facility]: 8[address] [facility] Low Hemoglobin 12.5 g/dL 13.5-17.5 g/dL [facility]: 0 [facility] Low Hematocrit 38.6 % 42.0-52.0 % [facility]: 0 [facility] Normal Mean Corpuscular Volume 85.4 fL 80.0 -96.0 fL [facility]: 8[address] [facility] Normal Mean Corpuscular Hemoglobin 27.7 pg 27.0-33.0 pg [facility]: 8[address] [facility] Normal Mean Corpuscular HGB Conc 32.4 g/dL 32.0-36.5 g/dL [facility]: 0 [facility] Normal Red Cell Distribution Width 12.4 % 1 1.5-14.5 % [facility]: 0 [facility] Normal Platelet Count, Automated 271 10 150 -450 10 [facility]: [address] [facility] High Neutrophils % 76.3 % 36.0-66.0 % [facility]: 8[address] [facility] Low Lymph % 13.6 % 24.0-44.0 % Final [facility]: 8[address] [facility] High Hartley % 8.2 % 0.0-5.0 % Final [facility]: 8[address] [facility] Normal Eos % 0.6 % 0.0-3.0 % [facility]: 8[address] [facility] Normal Baso % 0.2 % 0.0-1.0 % Final [facility]: 8[address] [facility] Normal Immature Granulocyte % 1.1 % 0-3.0 % [facility]: 8[address] [facility] Normal Nucleated Red Blood Cell % 0.0 % 0- 0 % [facility]: [address] [facility] High Neutrophils # 8.7 10 1.5-8.5 10 [facility]: 8[address] [facility] Normal Lymph # 1.5 10 1.5-5.0 10 [facility]: 0 [facility] High Hartley # 0.9 10 0.0-0.8 10 [facility]: 8[address] [facility] Normal Eos # 0.1 10 0.0-0.5 10 [facility]: [address] [facility] Normal Baso # 0.0 10 0.0-0.2 10 [facility]: 8[address] [facility] 07/28/2020 BMP, Serum or Plasma High Glucose, Fastin g 176 mg/dL 70-100 mg/dL [facility]: 83 0 [facility] Normal Blood Urea Nitrogen 11 mg/dL 7-18 mg /dL [facility]: 0 [facility] Normal Creatinine for GFR 0.71 mg/dL 0.70-1 .30 mg/dL [facility]: 8[address] [facility] Normal Glomerular Filtration Rate > 60.0 >6 0 [facility]: 8[address] [facility] Normal Sodium Level 139 mEq/L 136-145 mEq/L [facility]: [address] [facility] Normal Potassium Serum 4.1 mEq/L 3.5-5.1 mE q/L [facility]: [address] [facility] Normal Chloride Level 106 mEq/L 98-107 mEq/ L [facility]: [address] [facility] Normal Carbon Dioxide Level 25 mEq/L 21-32 mEq/L [facility]: [address] [facility] Normal Anion Gap 8 mEq/L 8-16 mEq/L [facility]: [address] [facility] Normal Calcium Level 8.5 mg/dL 8.5-10.1 mg/ dL [facility]: 8[address] [facility] 07/28/2020 Magnesium, Serum or Plasma Normal Magnesium Level 2.0 mg/dL 1.8-2.4 mg/dL [facility]: 83 0 [facility] 07/28/2020 Glucose, Fingerstick, Blood High Bedside Glucose 175 mg/dL 70- 105 mg/dL [facility]: 83 0 [facility] 07/28/2020 SARS CoV 2 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), QL, 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, 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 Normal Sars Covid-19 Amplification negative negative [facility]: [address] [facility] 07/28/2020 Glucose, Fingerstick, Blood High Bedside Glucose 245 mg/dL 70- 105 mg/dL [facility]: 83 0 [facility] 07/28/2020 Glucose, Fingerstick, Blood High Bedside Glucose 198 mg/dL 70- 105 mg/dL [facility]: 83 0 [facility] 07/28/2020 Glucose, Fingerstick, Blood High Bedside Glucose 360 mg/dL 70- 105 mg/dL [facility]: 83 0 [facility] 07/27/2020 CBC W/ Auto Diff High White Blood Count 11.4 10 4.0-10.0 10 [facility]: 8[address] [facility] Normal Red Blood Count 4.73 10 4.30-6.10 10 [facility]: 8[address] [facility] Low Hemoglobin 13.0 g/dL 13.5-17.5 g/dL [facility]: 8[address] [facility] Low Hematocrit 40.9 % 42.0-52.0 % [facility]: 8[address] [facility] Normal Mean Corpuscular Volume 86.5 fL 80.0 -96.0 fL [facility]: [address] [place] [address] Normal Mean Corpuscular Hemoglobin 27.5 pg 27.0-33.0 pg [facility]: [address] [place] [address] Low Mean Corpuscular HGB Conc 31.8 g/dL 32.0-36.5 g/dL [facility]: 8[address] [facility] Normal Red Cell Distribution Width 12.1 % 1 1.5-14.5 % [facility]: 8[address] [facility] Normal Platelet Count, Automated 290 10 150 -450 10 [facility]: 0 [facility] High Neutrophils % 69.9 % 36.0-66.0 % [facility]: 8[address] [facility] Low Lymph % 19.6 % 24.0-44.0 % [facility]: 8[address] [facility] High Hartley % 8.7 % 0.0-5.0 % [facility]: 8[address] [facility] Normal Eos % 0.5 % 0.0-3.0 % [facility]: 8[address] [facility] Normal Baso % 0.2 % 0.0-1.0 % [facility]: 0 [facility] Normal Immature Granulocyte % 1.1 % 0-3.0 % [facility]: 8[address] [facility] Normal Nucleated Red Blood Cell % 0.0 % 0- 0 % [facility]: 8[address] [facility] Normal Neutrophils # 8.0 10 1.5-8.5 10 Jaylin l [facility]: 8[address] [facility] Normal Lymph # 2.2 10 1.5-5.0 10 [facility]: 8[address] [facility] High Hartley # 1.0 10 0.0-0.8 10 [facility]: 8[address] [facility] Normal Eos # 0.1 10 0.0-0.5 10 [facility]: [address] [facility] Normal Baso # 0.0 10 0.0-0.2 10 [facility]: 8[address] [facility] 07/27/2020 BMP, Serum or Plasma High Glucose, Fastin g 144 mg/dL 70-100 mg/dL [facility]: 83 0 [facility] Normal Blood Urea Nitrogen 12 mg/dL 7-18 mg /dL [facility]: 0 [facility] Low Creatinine for GFR 0.63 mg/dL 0.70-1 .30 mg/dL [facility]: 8[address] [facility] Normal Glomerular Filtration Rate > 60.0 >6 0 [facility]: 8[address] [facility] Normal Sodium Level 138 mEq/L 136-145 mEq/L [facility]: [address] [facility] Normal Potassium Serum 3.6 mEq/L 3.5-5.1 mE q/L [facility]: [address] [facility] Normal Chloride Level 104 mEq/L 98-107 mEq/ L [facility]: 8[address] [facility] Normal Carbon Dioxide Level 25 mEq/L 21-32 mEq/L [facility]: 8[address] [facility] Normal Anion Gap 9 mEq/L 8-16 mEq/L [facility]: 8[address] [facility] Low Calcium Level 8.2 mg/dL 8.5-10.1 mg/ dL [facility]: 8[address] [facility] 07/27/2020 Magnesium, Serum or Plasma Normal Magnesium Level 2.1 mg/dL 1.8-2.4 mg/dL [facility]: 83 0 [facility] 07/27/2020 Glucose, Fingerstick, Blood High Bedside Glucose 176 mg/dL 70- 105 mg/dL [facility]: 83 0 [facility] 07/27/2020 Glucose, Fingerstick, Blood High Bedside Glucose 189 mg/dL 70- 105 mg/dL [facility]: 83 0 [facility] 07/27/2020 Glucose, Fingerstick, Blood High Bedside Glucose 215 mg/dL 70- 105 mg/dL [facility]: 83 0 [facility] 07/27/2020 Troponin I, Blood Normal Troponin I < 0.02 NG/mL < 0.10 NG/mL [facility]: 8[address] [facility] 07/27/2020 Culture, Blood BLOOD No observation recorded. [facility]: 8[address] [facility] 07/27/2020 Culture, Blood BLOOD No observation recorded. [facility]: 8[address] [facility] 07/26/2020 Glucose, Fingerstick, Blood High Bedside Glucose 114 mg/dL 70- 105 mg/dL [facility]: 83 0 [facility] 07/26/2020 BMP, Serum or Plasma High Glucose, Fastin g 125 mg/dL 70-100 mg/dL [facility]: 83 0 [facility] Normal Blood Urea Nitrogen 16 mg/dL 7-18 mg /dL [facility]: 8[address] [facility] Low Creatinine for GFR 0.59 mg/dL 0.70-1 .30 mg/dL [facility]: 0 [facility] Normal Glomerular Filtration Rate > 60.0 >6 0 [facility]: 8[address] [facility] Normal Sodium Level 139 mEq/L 136-145 mEq/L [facility]: 0 [facility] Normal Potassium Serum 4.0 mEq/L 3.5-5.1 mE q/L [facility]: [address] [facility] Normal Chloride Level 107 mEq/L 98-107 mEq/ L [facility]: [address] [facility] Normal Carbon Dioxide Level 24 mEq/L 21-32 mEq/L [facility]: [address] [facility] Normal Anion Gap 8 mEq/L 8-16 mEq/L [facility]: [address] [facility] Low Calcium Level 8.0 mg/dL 8.5-10.1 mg/ dL [facility]: 8[address] [facility] 07/26/2020 Magnesium, Serum or Plasma Normal Magnesium Level 2.2 mg/dL 1.8-2.4 mg/dL [facility]: 83 0 [facility] 07/26/2020 CBC W/ Auto Diff Normal White Blood Count 8.9 10 4.0-10.0 10 [facility]: 0 [facility] Normal Red Blood Count 5.03 10 4.30-6.10 10 [facility]: 8[address] [facility] Normal Hemoglobin 13.6 g/dL 13.5-17.5 g/dL [facility]: 0 [facility] Normal Hematocrit 45.2 % 42.0-52.0 % [facility]: [address] [place] [address] Normal Mean Corpuscular Volume 89.9 fL 80.0 -96.0 fL [facility]: 0 [facility] Normal Mean Corpuscular Hemoglobin 27.0 pg 27.0-33.0 pg [facility]: 0 [facility] Low Mean Corpuscular HGB Conc 30.1 g/dL 32.0-36.5 g/dL [facility]: 0 [facility] Normal Red Cell Distribution Width 12.2 % 1 1.5-14.5 % [facility]: 0 [facility] Normal Platelet Count, Automated 277 10 150 -450 10 [facility]: 0 [facility] Normal Nucleated Red Blood Cell % 0.0 % 0- 0 % [facility]: 8[address] [facility] 07/26/2020 Differential Panel, Blood Normal Neutrophil s 66 % 28-66 % [facility]: 8[address] [facility] Normal Bands 1 % < 11 % [facility]: 8[address] [facility] Normal Lymphocytes 24 % 16-44 % Final [facility]: 8[address] [facility] High Monocytes 6 % 0-5 % Final [facility]: 8[address] [facility] Normal Atypical Lymph 3 % 0-5 % [facility]: 8[address] [facility] Normal Anisocytosis 1+ Final [facility]: 8[address] [facility] 07/26/2020 Platelet Count, Estimate, Blood Normal Platelet Estimate normal normal [facility] nter: 830 [facility] 07/26/2020 Glucose, Fingerstick, Blood High Bedside Glucose 210 mg/dL 70- 105 mg/dL [facility]: 83 0 [facility] 07/26/2020 C Reactive Protein, QN, Serum or Plasma High C Reactive Protein Quantitativ 4.54 mg/dL 0.00-0.30 mg/dL [facility]: 8[address] [facility] 07/26/2020 ESR (Erythrocyte Sedimentation Rate), Blood Hig h Erythrocyte Sedimentation Rate 44 mm/HR 0-15 mm/HR [facility]: 8[address] [facility] 07/26/2020 Glucose, Fingerstick, Blood High Bedside Glucose 225 mg/dL 70- 105 mg/dL [facility]: 83 0 [facility] 07/26/2020 Glucose, Fingerstick, Blood High Bedside Glucose 246 mg/dL 70- 105 mg/dL [facility]: 83 0 [facility] 07/26/2020 Urine Strep Pneumoniae Antigen Normal Speci men Source urine . [facility]: 8[address] [facility] Normal Urine Strep Pneumoniae Antigen negat adonis negative [facility]: 8[address] [facility] Normal Body Fluid Culture not indicated. . [facility]: 8[address] [facility] Normal Organism Id not indicated. . [facility]: 8[address] [facility] Normal Please Note . [facility]: 8[address] [facility] 07/26/2020 Legionella Antigen Urine Normal Leg ionella Antigen Urine negative negative [facility] nter: 830 [facility] 07/25/2020 Glucose, Fingerstick, Blood High Bedside Glucose 188 mg/dL 70- 105 mg/dL [facility]: 83 0 [facility] 07/25/2020 Direct Della, RBC Normal SUKHI Result Calc nega tive [facility]: 8[address] [facility] 07/25/2020 Critical Care Profile High Glucose, Fasti ng 146 mg/dL 70-100 mg/dL [facility]: 83 0 [facility] High Blood Urea Nitrogen 19 mg/dL 7-18 mg /dL [facility]: 8[address] [facility] Normal Creatinine for GFR 0.75 mg/dL 0.70-1 .30 mg/dL [facility]: 8[address] [facility] Normal Glomerular Filtration Rate > 60.0 >6 0 [facility]: 8[address] [facility] Normal Sodium Level 139 mEq/L 136-145 mEq/L [facility]: 8[address] [facility] Normal Potassium Serum 4.4 mEq/L 3.5-5.1 mE q/L [facility]: 8[address] [facility] Normal Chloride Level 105 mEq/L 98-107 mEq/ L [facility]: 8[address] [facility] Normal Carbon Dioxide Level 28 mEq/L 21-32 mEq/L [facility]: 0 [facility] Low Anion Gap 6 mEq/L 8-16 mEq/L [facility]: 8[address] [facility] Normal Calcium Level 8.7 mg/dL 8.5-10.1 mg/ dL [facility]: 8[address] [facility] Normal Phosphorus Level 3.9 mg/dL 2.5-4.9 m g/dL [facility]: 8[address] [facility] High AST/SGOT 56 U/L 7-37 U/L [facility]: 8[address] [facility] Normal ALT/SGPT 70 U/L 12-78 U/L [facility]: 8[address] [facility] High LDH Lactate Dehydrogenase 425 U/L 87 -241 U/L [facility]: 8[address] [facility] Normal CPK Creatine Phosphokinase 75 U/L 39 -308 U/L [facility]: 8[address] [facility] Normal Alkaline Phosphatase 63 U/L 45-117 U /L [facility]: 8[address] [facility] Normal Bilirubin,total 1.0 mg/dL 0.2-1.0 mg /dL [facility]: [address] [facility] High Triglycerides Level 221 mg/dL <150 m g/dL [facility]: [address] [facility] Normal Cholesterol Level 140 mg/dL < 200 mg /dL [facility]: 8[address] [facility] Normal Total Protein 6.6 gm/dL 6.4-8.2 gm/d L [facility]: 8[address] [facility] Low Albumin 2.7 gm/dL 3.2-5.2 gm/dL [facility]: 8[address] [facility] Normal Albumin/globulin Ratio 0.7 [facility]: 8[address] [facility] 07/25/2020 Magnesium, Serum or Plasma Normal Magnesium Level 2.2 mg/dL 1.8-2.4 mg/dL [facility]: 83 0 [facility] 07/25/2020 CBC W/ Auto Diff Normal White Blood Count 9.9 10 4.0-10.0 10 [facility]: 830 [facility] Normal Red Blood Count 4.90 10 4.30-6.10 10 [facility]: 8[address] [facility] Low Hemoglobin 13.3 g/dL 13.5-17.5 g/dL [facility]: [address] [place] [address] Low Hematocrit 41.7 % 42.0-52.0 % [facility]: [address] [place] [address] Normal Mean Corpuscular Volume 85.1 fL 80.0 -96.0 fL [facility]: [address] [place] [address] Normal Mean Corpuscular Hemoglobin 27.1 pg 27.0-33.0 pg Final [facility]: [address] [place] [address] Low Mean Corpuscular HGB Conc 31.9 g/dL 32.0-36.5 g/dL Final [facility]: [address] [place] [address] Normal Red Cell Distribution Width 12.2 % 1 1.5-14.5 % [facility]: [address] [place] [address] Normal Platelet Count, Automated 295 10 150 -450 10 [facility]: 8[address] [facility] Normal Nucleated Red Blood Cell % 0.0 % 0- 0 % [facility]: 8[address] [facility] 07/25/2020 Differential Panel, Blood High Neutrophils 7 2 % 28-66 % [facility]: 0 [facility] Normal Bands 1 % < 11 % [facility]: 0 [facility] Low Lymphocytes 14 % 16-44 % Final [facility]: 0 [facility] High Monocytes 6 % 0-5 % [facility]: 8[address] [facility] Normal Eosinophils 1 % 0-3 % [facility]: 8[address] [facility] High Atypical Lymph 6 % 0-5 % [facility]: 0 [facility] Normal Anisocytosis 1+ Final [facility]: 8[address] [facility] 07/25/2020 Platelet Count, Estimate, Blood Normal Platelet Estimate normal normal [facility] nter: 830 [facility] 07/25/2020 Glucose, Fingerstick, Blood High Bedside Glucose 158 mg/dL 70- 105 mg/dL [facility]: 83 0 [facility] 07/25/2020 Glucose, Fingerstick, Blood High Bedside Glucose 247 mg/dL 70- 105 mg/dL [facility]: 83 0 [facility] 07/24/2020 Glucose, Fingerstick, Blood High Bedside Glucose 213 mg/dL 70- 105 mg/dL [facility]: 83 0 [facility] 07/24/2020 Glucose, Fingerstick, Blood High Bedside Glucose 189 mg/dL 70- 105 mg/dL [facility]: 83 0 [facility] 07/24/2020 CBC W/ Auto Diff Normal White Blood Count 9.1 10 4.0-10.0 10 [facility]: 0 [facility] Normal Red Blood Count 4.62 10 4.30-6.10 10 [facility]: 830 [facility] Low Hemoglobin 13.1 g/dL 13.5-17.5 g/dL [facility]: 0 [facility] Low Hematocrit 39.6 % 42.0-52.0 % [facility]: 0 [facility] Normal Mean Corpuscular Volume 85.7 fL 80.0 -96.0 fL [facility]: 830 [facility] Normal Mean Corpuscular Hemoglobin 28.4 pg 27.0-33.0 pg [facility]: 830 [facility] Normal Mean Corpuscular HGB Conc 33.1 g/dL 32.0-36.5 g/dL [facility]: 830 [facility] Normal Red Cell Distribution Width 12.4 % 1 1.5-14.5 % [facility]: 0 [facility] Normal Platelet Count, Automated 280 10 150 -450 10 [facility]: 830 [facility] High Neutrophils % 74.7 % 36.0-66.0 % [facility]: 0 [facility] Low Lymph % 16.2 % 24.0-44.0 % [facility]: 830 [facility] High Hartley % 8.2 % 0.0-5.0 % [facility]: 830 [facility] Normal Eos % 0.0 % 0.0-3.0 % [facility]: 830 [facility] Normal Baso % 0.1 % 0.0-1.0 % [facility]: 830 [facility] Normal Immature Granulocyte % 0.8 % 0-3.0 % [facility]: 830 [facility] Normal Nucleated Red Blood Cell % 0.0 % 0- 0 % [facility]: 830 [facility] Normal Neutrophils # 6.8 10 1.5-8.5 10 [facility]: 830 [facility] Normal Lymph # 1.5 10 1.5-5.0 10 [facility]: 830 [facility] Normal Hartley # 0.7 10 0.0-0.8 10 [facility]: 830 [facility] Normal Eos # 0.0 10 0.0-0.5 10 [facility]: 830 [facility] Normal Baso # 0.0 10 0.0-0.2 10 [facility]: 830 [facility] 07/24/2020 CMP, Serum or Plasma High Glucose, Fastin g 193 mg/dL 70-100 mg/dL [facility]: 83 0 [facility] High Blood Urea Nitrogen 19 mg/dL 7-18 mg /dL [facility]: 0 [facility] Low Creatinine for GFR 0.63 mg/dL 0.70-1 .30 mg/dL [facility]: 0 [facility] Normal Glomerular Filtration Rate > 60.0 >6 0 [facility]: 830 [facility] Normal Sodium Level 139 mEq/L 136-145 mEq/L [facility]: 830 [facility] Normal Potassium Serum 4.2 mEq/L 3.5-5.1 mE q/L [facility]: 830 [facility] Normal Chloride Level 107 mEq/L 98-107 mEq/ L [facility]: [address] [place] [address] Normal Carbon Dioxide Level 24 mEq/L 21-32 mEq/L [facility]: [address] [place] [address] Normal Anion Gap 8 mEq/L 8-16 mEq/L [facility]: [address] [place] [address] Low Calcium Level 8.3 mg/dL 8.5-10.1 mg/ dL [facility]: [address] [place] [address] High AST/SGOT 49 U/L 7-37 U/L [facility]: [address] [place] [address] Normal ALT/SGPT 62 U/L 12-78 U/L [facility]: [address] [place] [address] Normal Alkaline Phosphatase 62 U/L 45-117 U /L [facility]: 0 [facility] Normal Bilirubin,total 0.9 mg/dL 0.2-1.0 mg /dL [facility]: [address] [place] [address] Low Total Protein 6.3 gm/dL 6.4-8.2 gm/d L [facility]: [address] [place] [address] Low Albumin 2.6 gm/dL 3.2-5.2 gm/dL [facility]: [address] [place] [address] Normal Albumin/globulin Ratio 0.7 [facility]: [address] [place] [address] 07/24/2020 C Reactive Protein, QN, Serum or Plasma High C Reactive Protein Quantitativ 2.66 mg/dL 0.00-0.30 mg/dL [facility]: [address] [place] [address] 07/24/2020 HIV 1+2 AB + HIV 1 P24 Ag, Qualitative Immunoassay, Serum Normal HIV 1&2 Screen Centaur negative negative [facility]: [address] [place] [address] 07/24/2020 Procalcitonin, Serum Normal Procalcitonin 0.15 [facility]: 830 [facility] 07/24/2020 Glucose, Fingerstick, Blood High Bedside Glucose 149 mg/dL 70- 105 mg/dL [facility]: 83 0 [facility] 07/24/2020 Gas Panel, Arterial Blood Normal ABG pH (Ar terial) 7.402 units 7.350-7.450 units [facility]: 83 0 [facility] Normal ABG Partial Pressure CO2 38.9 mmHg 3 5.0-45.0 mmHg [facility]: 830 [facility] Low ABG Partial Pressure O2 66.5 mmHg 75 .0-100.0 mmHg [facility]: 830 [facility] Normal ABG Total CO2 24.9 mEq/L 22.0-29.0 m Eq/L [facility]: 830 [facility] Normal Abg Hco3 23.7 mEq/L 22.0-26.0 mEq/L [facility]: 830 [facility] Normal ABG Base Excess -0.9 -2.0-2.0 Jaylin [facility]: 830 [facility] Normal ABG Standard HCO3 23.7 mEq/L 22.0-26 .0 mEq/L [facility]: 830 [facility] Low ABG O2 Saturation 93.6 % 95.0-99.0 % [facility]: 830 [facility] 07/24/2020 Glucose, Fingerstick, Blood High Bedside Glucose 213 mg/dL 70- 105 mg/dL [facility]: 83 0 [facility] 07/24/2020 Histoplasma Antigen Urine Normal Hi stoplasma Gal'maria eugenia Ag Ur <0.5 <0.5 NG/mL [facility] nter: 830 [facility] Normal Disclaimer . [facility]: 830 [facility] 07/24/2020 Quantiferon Gold Test Normal Quantiferon Criter ia . [facility]: 830 [facility] Normal Quantiferon TB1 Ag Value 0.03 IU/mL . IU/mL [facility]: 830 [facility] Normal Quantiferon TB2 Ag Value 0.03 IU/mL . IU/mL [facility]: 830 [facility] Normal Quantiferon Nil Value 0.03 IU/mL . I U/mL [facility]: 830 [facility] Normal Quantiferon Mitogen Value >10.00 IU/ mL . IU/mL [facility]: 830 [facility] Normal quantiferon-TB Gold plus negative ne gative [facility]: 0 [facility] 07/24/2020 (1,3)-lpof-W-aojzxt, Serum Normal Fungitell , Serum <31 pg/mL <80 pg/mL [facility]: 83 0 [facility] 07/24/2020 Cryptococcus Antigen Serum Normal C ryptococcus Antigen Ser negative negative [facility] nter: 830 [facility] 07/24/2020 Aspergillus Galactomannan Ag, Serum or Plasma N ormal Aspergillus Galactomannan Ag 0.02 index 0.00-0.[address] [facility]: 0 [facility] 07/24/2020 Cryptococcus Antigen Serum Normal C ryptococcus Antigen Ser negative negative [facility] nter: 830 [facility] 07/23/2020 CBC W/ Auto Diff Normal White Blood Count 6.8 10 4.0-10.0 10 [facility]: 830 [facility] Normal Red Blood Count 4.53 10 4.30-6.10 10 [facility]: 0 [facility] Low Hemoglobin 12.8 g/dL 13.5-17.5 g/dL [facility]: 0 [facility] Low Hematocrit 39.0 % 42.0-52.0 % [facility]: 0 [facility] Normal Mean Corpuscular Volume 86.1 fL 80.0 -96.0 fL Final [facility]: 830 [facility] Normal Mean Corpuscular Hemoglobin 28.3 pg 27.0-33.0 pg [facility]: [address] [place] [address] Normal Mean Corpuscular HGB Conc 32.8 g/dL 32.0-36.5 g/dL [facility]: [address] [place] [address] Normal Red Cell Distribution Width 12.9 % 1 1.5-14.5 % [facility]: [address] [place] [address] Normal Platelet Count, Automated 269 10 150 -450 10 [facility]: 0 [facility] High Neutrophils % 74.7 % 36.0-66.0 % [facility]: 830 [facility] Low Lymph % 17.0 % 24.0-44.0 % [facility]: 830 [facility] High Hartley % 8.0 % 0.0-5.0 % [facility]: 830 [facility] Normal Eos % 0.0 % 0.0-3.0 % [facility]: 0 [facility] Normal Baso % 0.0 % 0.0-1.0 % [facility]: [address] [place] [address] Normal Immature Granulocyte % 0.3 % 0-3.0 % [facility]: 0 [facility] Normal Nucleated Red Blood Cell % 0.0 % 0- 0 % [facility]: 830 [facility] Normal Neutrophils # 5.1 10 1.5-8.5 10 [facility]: 0 [facility] Low Lymph # 1.2 10 1.5-5.0 10 [facility]: 0 [facility] Normal Hartley # 0.5 10 0.0-0.8 10 [facility]: 830 [facility] Normal Eos # 0.0 10 0.0-0.5 10 [facility]: 830 [facility] Normal Baso # 0.0 10 0.0-0.2 10 [facility]: 830 [facility] 07/23/2020 CMP, Serum or Plasma High Glucose, Fastin g 192 mg/dL 70-100 mg/dL [facility]: 83 0 [facility] Normal Blood Urea Nitrogen 16 mg/dL 7-18 mg /dL [facility]: 830 [facility] Normal Creatinine for GFR 0.87 mg/dL 0.70-1 .30 mg/dL [facility]: 830 [facility] Normal Glomerular Filtration Rate > 60.0 >6 0 [facility]: 830 [facility] Normal Sodium Level 137 mEq/L 136-145 mEq/L [facility]: 830 [facility] D Potassium Serum 5.1 mEq/L 3.5-5.1 mE q/L [facility]: 830 [facility] Normal Chloride Level 106 mEq/L 98-107 mEq/ L [facility]: 830 [facility] Normal Carbon Dioxide Level 27 mEq/L 21-32 mEq/L [facility]: 830 [facility] Low Anion Gap 4 mEq/L 8-16 mEq/L [facility]: 830 [facility] Normal Calcium Level 8.5 mg/dL 8.5-10.1 mg/ dL [facility]: 830 [facility] High AST/SGOT 63 U/L 7-37 U/L [facility]: 830 [facility] Normal ALT/SGPT 65 U/L 12-78 U/L [facility]: 830 [facility] Normal Alkaline Phosphatase 55 U/L 45-117 U /L [facility]: 830 [facility] Normal Bilirubin,total 1.0 mg/dL 0.2-1.0 mg /dL [facility]: 830 [facility] Normal Total Protein 6.5 gm/dL 6.4-8.2 gm/d L [facility]: 830 [facility] Low Albumin 2.5 gm/dL 3.2-5.2 gm/dL Jaylin joaquin [facility]: 830 [facility] Normal Albumin/globulin Ratio 0.6 [facility]: 830 [facility] 07/23/2020 Glucose, Fingerstick, Blood High Bedside Glucose 174 mg/dL 70- 105 mg/dL [facility]: 83 0 [facility] 07/23/2020 Glucose, Fingerstick, Blood High Bedside Glucose 218 mg/dL 70- 105 mg/dL [facility]: 83 0 [facility] 07/22/2020 CBC W/ Auto Diff Normal White Blood Count 6.9 10 4.0-10.0 10 [facility]: 830 [facility] Normal Red Blood Count 4.48 10 4.30-6.10 10 [facility]: 830 [facility] Low Hemoglobin 12.2 g/dL 13.5-17.5 g/dL [facility]: 0 [facility] Low Hematocrit 38.6 % 42.0-52.0 % [facility]: 0 [facility] Normal Mean Corpuscular Volume 86.2 fL 80.0 -96.0 fL [facility]: 830 [facility] Normal Mean Corpuscular Hemoglobin 27.2 pg 27.0-33.0 pg [facility]: 830 [facility] Low Mean Corpuscular HGB Conc 31.6 g/dL 32.0-36.5 g/dL [facility]: 0 [facility] Normal Red Cell Distribution Width 13.0 % 1 1.5-14.5 % [facility]: 0 [facility] Normal Platelet Count, Automated 180 10 150 -450 10 [facility]: 0 [facility] High Neutrophils % 75.2 % 36.0-66.0 % [facility]: 830 [facility] Low Lymph % 18.3 % 24.0-44.0 % Final [facility]: 830 [facility] High Hartley % 5.8 % 0.0-5.0 % Final [facility]: 830 [facility] Normal Eos % 0.0 % 0.0-3.0 % [facility]: 830 [facility] Normal Baso % 0.1 % 0.0-1.0 % [facility]: 830 [facility] Normal Immature Granulocyte % 0.6 % 0-3.0 % [facility]: 830 [facility] Normal Nucleated Red Blood Cell % 0.0 % 0- 0 % [facility]: 830 [facility] Normal Neutrophils # 5.2 10 1.5-8.5 10 [facility]: 830 [facility] Low Lymph # 1.3 10 1.5-5.0 10 [facility]: 830 [facility] Normal Hartley # 0.4 10 0.0-0.8 10 [facility]: 830 [facility] Normal Eos # 0.0 10 0.0-0.5 10 [facility]: 830 [facility] Normal Baso # 0.0 10 0.0-0.2 10 [facility]: 830 [facility] 07/22/2020 CMP, Serum or Plasma High Glucose, Fastin g 135 mg/dL 70-100 mg/dL [facility]: 83 0 [facility] Normal Blood Urea Nitrogen 15 mg/dL 7-18 mg /dL [facility]: 0 [facility] Low Creatinine for GFR 0.66 mg/dL 0.70-1 .30 mg/dL [facility]: 830 [facility] Normal Glomerular Filtration Rate > 60.0 >6 0 [facility]: 830 [facility] Normal Sodium Level 142 mEq/L 136-145 mEq/L [facility]: [address] [place] [address] Normal Potassium Serum 4.0 mEq/L 3.5-5.1 mE q/L [facility]: [address] [place] [address] High Chloride Level 109 mEq/L 98-107 mEq/ L [facility]: [address] [place] [address] Normal Carbon Dioxide Level 27 mEq/L 21-32 mEq/L [facility]: [address] [place] [address] Low Anion Gap 6 mEq/L 8-16 mEq/L [facility]: [address] [place] [address] Low Calcium Level 8.0 mg/dL 8.5-10.1 mg/ dL [facility]: [address] [place] [address] High AST/SGOT 68 U/L 7-37 U/L [facility]: [address] [place] [address] High ALT/SGPT 84 U/L 12-78 U/L [facility]: [address] [place] [address] Normal Alkaline Phosphatase 57 U/L 45-117 U /L [facility]: [address] [place] [address] Normal Bilirubin,total 0.9 mg/dL 0.2-1.0 mg /dL [facility]: [address] [place] [address] Low Total Protein 6.1 gm/dL 6.4-8.2 gm/d L [facility]: [address] [place] [address] Low Albumin 2.7 gm/dL 3.2-5.2 gm/dL Jaylin [facility]: [address] [place] [address] Normal Albumin/globulin Ratio 0.8 [facility]: [address] [place] [address] 07/22/2020 C Reactive Protein, QN, Serum or Plasma High C Reactive Protein Quantitativ 10.40 mg/dL 0.00-0.30 mg/dL [facility]: [address] [place] [address] 07/22/2020 ESR (Erythrocyte Sedimentation Rate), Blood Hig h Erythrocyte Sedimentation Rate 59 mm/HR 0-15 mm/HR [facility]: 830 [facility] 07/22/2020 Glucose, Fingerstick, Blood High Bedside Glucose 150 mg/dL 70- 105 mg/dL [facility]: 83 0 [facility] 07/22/2020 Glucose, Fingerstick, Blood High Bedside Glucose 193 mg/dL 70- 105 mg/dL [facility]: 83 0 [facility] 07/22/2020 Glucose, Fingerstick, Blood High Bedside Glucose 170 mg/dL 70- 105 mg/dL [facility]: 83 0 [facility] 07/21/2020 CBC W/ Auto Diff Normal White Blood Count 6.1 10 4.0-10.0 10 [facility]: 830 [facility] Normal Red Blood Count 4.35 10 4.30-6.10 10 [facility]: 830 [facility] Low Hemoglobin 12.3 g/dL 13.5-17.5 g/dL [facility]: 830 [facility] Low Hematocrit 37.5 % 42.0-52.0 % [facility]: 830 [facility] Normal Mean Corpuscular Volume 86.2 fL 80.0 -96.0 fL [facility]: 830 [facility] Normal Mean Corpuscular Hemoglobin 28.3 pg 27.0-33.0 pg [facility]: 830 [facility] Normal Mean Corpuscular HGB Conc 32.8 g/dL 32.0-36.5 g/dL [facility]: 830 [facility] Normal Red Cell Distribution Width 13.0 % 1 1.5-14.5 % [facility]: 0 [facility] Low Platelet Count, Automated 139 10 150 -450 10 [facility]: 830 [facility] High Neutrophils % 68.6 % 36.0-66.0 % [facility]: 830 [facility] Normal Lymph % 26.8 % 24.0-44.0 % [facility]: 830 [facility] Normal Hartley % 4.1 % 0.0-5.0 % [facility]: 830 [facility] Normal Eos % 0.0 % 0.0-3.0 % [facility]: 830 [facility] Normal Baso % 0.2 % 0.0-1.0 % [facility]: 830 [facility] Normal Immature Granulocyte % 0.3 % 0-3.0 % [facility]: 830 [facility] Normal Nucleated Red Blood Cell % 0.0 % 0- 0 % [facility]: 0 [facility] Normal Neutrophils # 4.2 10 1.5-8.5 10 Jaylin [facility]: 0 [facility] Normal Lymph # 1.6 10 1.5-5.0 10 [facility]: 830 [facility] Normal Hartley # 0.3 10 0.0-0.8 10 [facility]: 830 [facility] Normal Eos # 0.0 10 0.0-0.5 10 [facility]: 0 [facility] Normal Baso # 0.0 10 0.0-0.2 10 [facility]: 0 [facility] 07/21/2020 CMP, Serum or Plasma High Glucose, Fastin g 151 mg/dL 70-100 mg/dL [facility]: 83 0 [facility] D Blood Urea Nitrogen 14 mg/dL 7-18 mg /dL [facility]: 0 [facility] Normal Creatinine for GFR 0.74 mg/dL 0.70-1 .30 mg/dL [facility]: 0 [facility] Normal Glomerular Filtration Rate > 60.0 >6 0 [facility]: 0 [facility] Normal Sodium Level 141 mEq/L 136-145 mEq/L [facility]: 0 [facility] Normal Potassium Serum 3.9 mEq/L 3.5-5.1 mE q/L [facility]: 830 [facility] Normal Chloride Level 107 mEq/L 98-107 mEq/ L [facility]: 830 [facility] Normal Carbon Dioxide Level 27 mEq/L 21-32 mEq/L [facility]: 830 [facility] Low Anion Gap 7 mEq/L 8-16 mEq/L [facility]: 830 [facility] Low Calcium Level 7.9 mg/dL 8.5-10.1 mg/ dL [facility]: 830 [facility] High AST/SGOT 84 U/L 7-37 U/L [facility]: 830 [facility] High ALT/SGPT 107 U/L 12-78 U/L [facility]: 830 [facility] Normal Alkaline Phosphatase 53 U/L 45-117 U /L [facility]: 830 [facility] Normal Bilirubin,total 0.7 mg/dL 0.2-1.0 mg /dL [facility] [facility]: [address] [facility] Low Total Protein 5.9 gm/dL 6.4-8.2 gm/d L [facility]: [address] [facility] Low Albumin 2.8 gm/dL 3.2-5.2 gm/dL Jaylin l [facility]: [address] [facility] Normal Albumin/globulin Ratio 0.9 [facility]: [address] [facility] 07/21/2020 Glucose, Fingerstick, Blood High Bedside Glucose 174 mg/dL 70- 105 mg/dL [facility]: 83 0 [facility] 07/21/2020 Glucose, Fingerstick, Blood High Bedside Glucose 132 mg/dL 70- 105 mg/dL [facility]: 83 0 [facility] 07/21/2020 Glucose, Fingerstick, Blood High Bedside Glucose 121 mg/dL 70- 105 mg/dL [facility]: 83 0 [facility] 07/20/2020 CMP, Serum or Plasma High Glucose, Fastin g 179 mg/dL 70-100 mg/dL [facility]: 83 0 [facility] Normal Blood Urea Nitrogen 9 mg/dL 7-18 mg/ dL [facility]: [address] [facility] Normal Creatinine for GFR 0.76 mg/dL 0.70-1 .30 mg/dL [facility]: [address] [facility] Normal Glomerular Filtration Rate > 60.0 >6 0 [facility]: [address] [facility] Normal Sodium Level 136 mEq/L 136-145 mEq/L [facility]: [address] [facility] Normal Potassium Serum 3.9 mEq/L 3.5-5.1 mE q/L [facility]: [address] [facility] Normal Chloride Level 104 mEq/L 98-107 mEq/ L [facility]: [address] [facility] Normal Carbon Dioxide Level 28 mEq/L 21-32 mEq/L [facility]: [address] [facility] Low Anion Gap 4 mEq/L 8-16 mEq/L [facility]: [address] [facility] Low Calcium Level 8.2 mg/dL 8.5-10.1 mg/ dL [facility]: [address] [facility] High AST/SGOT 105 U/L 7-37 U/L [facility]: [address] [facility] High ALT/SGPT 139 U/L 12-78 U/L [facility]: [address] [facility] Normal Alkaline Phosphatase 56 U/L 45-117 U /L [facility]: [address] [facility] Normal Bilirubin,total 0.6 mg/dL 0.2-1.0 mg /dL [facility]: [address] [facility] Low Total Protein 6.2 gm/dL 6.4-8.2 gm/d L [facility]: [address] [facility] Low Albumin 3.0 gm/dL 3.2-5.2 gm/dL Jaylin l [facility]: [address] [facility] Normal Albumin/globulin Ratio 0.9 [facility]: [address] [facility] 07/20/2020 Ferritin, Serum or Plasma High Ferritin 1019 NG/mL 26-388 NG/mL [facility]: 83 0 [facility] 07/20/2020 C Reactive Protein, QN, Serum or Plasma High C Reactive Protein Quantitativ 5.13 mg/dL 0.00-0.30 mg/dL [facility]: [address] [facility] 07/20/2020 CBC W/ Auto Diff Normal White Blood Count 4.8 10 4.0-10.0 10 [facility]: [address] [facility] Normal Red Blood Count 4.62 10 4.30-6.10 10 [facility]: 0 [facility] Low Hemoglobin 13.0 g/dL 13.5-17.5 g/dL [facility]: [address] [facility] Low Hematocrit 40.3 % 42.0-52.0 % [facility]: 0 [facility] Normal Mean Corpuscular Volume 87.2 fL 80.0 -96.0 fL [facility]: 0 [facility] Normal Mean Corpuscular Hemoglobin 28.1 pg 27.0-33.0 pg [facility]: [address] [facility] Normal Mean Corpuscular HGB Conc 32.3 g/dL 32.0-36.5 g/dL [facility]: [address] [facility] Normal Red Cell Distribution Width 12.8 % 1 1.5-14.5 % [facility]: 0 [facility] Low Platelet Count, Automated 126 10 150 -450 10 [facility]: 0 [facility] High Neutrophils % 67.5 % 36.0-66.0 % [facility]: [address] [facility] Normal Lymph % 28.2 % 24.0-44.0 % Final [facility]: [address] [facility] Normal Hartley % 4.1 % 0.0-5.0 % Final [facility]: [address] [facility] Normal Eos % 0.0 % 0.0-3.0 % [facility]: [address] [facility] Normal Baso % 0.0 % 0.0-1.0 % [facility]: [address] [facility] Normal Immature Granulocyte % 0.2 % 0-3.0 % [facility]: [address] [facility] Normal Nucleated Red Blood Cell % 0.0 % 0- 0 % [facility]: [address] [facility] Normal Neutrophils # 3.3 10 1.5-8.5 10 Jaylin [facility]: [address] [facility] Low Lymph # 1.4 10 1.5-5.0 10 [facility]: [address] [facility] Normal Hartley # 0.2 10 0.0-0.8 10 [facility]: [address] [facility] Normal Eos # 0.0 10 0.0-0.5 10 [facility]: [address] [facility] Normal Baso # 0.0 10 0.0-0.2 10 [facility]: [address] [facility] 07/20/2020 ESR (Erythrocyte Sedimentation Rate), Blood Hig h Erythrocyte Sedimentation Rate 41 mm/HR 0-15 mm/HR [facility]: [address] [facility] 07/20/2020 D-dimer, Quant, Plasma High D-dimer Quant 877.68 NG/mL <500 NG/mL [facility]: 83 0 [facility] 07/20/2020 Glucose, Fingerstick, Blood High Bedside Glucose 175 mg/dL 70- 105 mg/dL [facility]: 83 0 [facility] 07/20/2020 Pro BNP (Pro B-type Natriuretic Peptide), Serum or Plasma Normal Nt-pro BNP 19 pg/mL <125 pg/mL [facility]: [address] [facility] 07/20/2020 Glucose, Fingerstick, Blood High Bedside Glucose 163 mg/dL 70- 105 mg/dL [facility]: 83 0 [facility] 07/20/2020 Glucose, Fingerstick, Blood High Bedside Glucose 160 mg/dL 70- 105 mg/dL [facility]: 83 0 [facility] 07/19/2020 CBC W/ Auto Diff Normal White Blood Count 4.1 10 4.0-10.0 10 [facility]: [address] [facility] Normal Red Blood Count 4.87 10 4.30-6.10 10 [facility]: [address] [facility] Low Hemoglobin 13.2 g/dL 13.5-17.5 g/dL [facility]: [address] [place] [address] Low Hematocrit 41.5 % 42.0-52.0 % [facility]: [address] [facility] Normal Mean Corpuscular Volume 85.2 fL 80.0 -96.0 fL [facility]: 0 [facility] Normal Mean Corpuscular Hemoglobin 27.1 pg 27.0-33.0 pg [facility]: [address] [facility] Low Mean Corpuscular HGB Conc 31.8 g/dL 32.0-36.5 g/dL [facility]: [address] [facility] Normal Red Cell Distribution Width 12.5 % 1 1.5-14.5 % [facility]: [address] [facility] Low Platelet Count, Automated 108 10 150 -450 10 [facility]: 0 [facility] High Neutrophils % 67.4 % 36.0-66.0 % [facility]: [address] [facility] Normal Lymph % 27.3 % 24.0-44.0 % [facility]: [address] [facility] Normal Hartley % 4.9 % 0.0-5.0 % [facility]: [address] [facility] Normal Eos % 0.0 % 0.0-3.0 % [facility]: [address] [facility] Normal Baso % 0.2 % 0.0-1.0 % [facility]: [address] [facility] Normal Immature Granulocyte % 0.2 % 0-3.0 % [facility]: [address] [facility] Normal Nucleated Red Blood Cell % 0.0 % 0- 0 % [facility]: [address] [facility] Normal Neutrophils # 2.8 10 1.5-8.5 10 [facility]: [address] [facility] Low Lymph # 1.1 10 1.5-5.0 10 [facility]: [address] [facility] Normal Hartley # 0.2 10 0.0-0.8 10 [facility]: [address] [facility] Normal Eos # 0.0 10 0.0-0.5 10 [facility]: [address] [facility] Normal Baso # 0.0 10 0.0-0.2 10 [facility]: [address] [facility] 07/19/2020 ESR (Erythrocyte Sedimentation Rate), Blood Hig h Erythrocyte Sedimentation Rate 20 mm/HR 0-15 mm/HR [facility] dical Center: [address] [place] [address] 07/19/2020 CK (Creatine Kinase) Mb, Quantitative, Blood No rmal CPK Creatine Phosphokinase 114 U/L 39-308 U/L [facility]: [address] [facility] 07/19/2020 Salicylate, Quantitative, Serum Low Salicylate Level < 1.7 mg/dL 5.0-30.0 mg/dL [facility] nter: [address] [facility] 07/19/2020 Acetaminophen, Serum Low Acetaminophen L evel < 2.0 ug/mL 10.0- 30.0 ug/mL [facility]: 83 0 [facility] 07/19/2020 Hartley Reflex Ebv Comprehensive Normal Hartley Reflex Ebv Comp negative negative Final [facility] nter: [address] [facility] 07/19/2020 PT/INR High Prothrombin Time 14.6 secon ds 12.5-14.3 seconds [facility]: [address] [facility] Normal Inr 1.12 [facility]: [address] [facility] 07/19/2020 Partial Thromboplastin Time Normal Partial Thromboplastin Time 35.2 seconds 24.2-38.[address] [facility] Ce nter: [address] [facility] 07/19/2020 Fibrinogen Activity, Blood/plasma Normal Fi brinogen 394 mg/dL 221-452 mg/dL [facility]: 83 0 [facility] 07/19/2020 D-dimer, Quant, Plasma High D-dimer Quant 671.07 NG/mL <500 NG/mL [facility]: 83 0 [facility] 07/19/2020 Procalcitonin, Serum Normal Procalcitonin 0.13 [facility]: [address] [facility] 07/19/2020 Glucose, Fingerstick, Blood High Bedside Glucose 215 mg/dL 70- 105 mg/dL [facility]: 83 0 [facility] 07/19/2020 Glucose, Fingerstick, Blood High Bedside Glucose 155 mg/dL 70- 105 mg/dL [facility]: 83 0 [facility] 07/19/2020 Mrsa Screen, PCR Normal MRSA PCR Screen no t detected negative [facility]: [address] [facility] 07/19/2020 Glucose, Fingerstick, Blood High Bedside Glucose 201 mg/dL 70- 105 mg/dL [facility]: 83 0 [facility] 07/19/2020 CMP, Serum or Plasma High Glucose, Fastin g 252 mg/dL 70-100 mg/dL [facility]: 83 0 [facility] Normal Blood Urea Nitrogen 10 mg/dL 7-18 mg /dL [facility]: [address] [facility] Normal Creatinine for GFR 0.88 mg/dL 0.70-1 .30 mg/dL [facility]: 0 [facility] Normal Glomerular Filtration Rate > 60.0 >6 0 [facility]: [address] [facility] Normal Sodium Level 136 mEq/L 136-145 mEq/L [facility]: [address] [place] [address] Normal Potassium Serum 3.6 mEq/L 3.5-5.1 mE q/L [facility]: [address] [facility] Normal Chloride Level 104 mEq/L 98-107 mEq/ L [facility]: [address] [place] [address] Normal Carbon Dioxide Level 26 mEq/L 21-32 mEq/L [facility]: [address] [place] [address] Low Anion Gap 6 mEq/L 8-16 mEq/L [facility]: [address] [place] [address] Low Calcium Level 7.5 mg/dL 8.5-10.1 mg/ dL [facility]: [address] [facility] High AST/SGOT 130 U/L 7-37 U/L [facility]: [address] [place] [address] High ALT/SGPT 184 U/L 12-78 U/L [facility]: [address] [facility] Normal Alkaline Phosphatase 64 U/L 45-117 U /L [facility]: 0 [facility] Normal Bilirubin,total 0.6 mg/dL 0.2-1.0 mg /dL [facility]: 0 [facility] Normal Total Protein 6.5 gm/dL 6.4-8.2 gm/d L [facility]: 0 [facility] Normal Albumin 3.3 gm/dL 3.2-5.2 gm/dL Jaylin l [facility]: 0 [facility] Normal Albumin/globulin Ratio 1.0 [facility]: [address] [place] [address] 07/19/2020 Hepatitis B Surface Ab, Qualitative, Serum Norm al Hepatitis B Surface Antibody negative positive Final [facility]: [address] [facility] 07/19/2020 C Reactive Protein, QN, Serum or Plasma High C Reactive Protein Quantitativ 2.43 mg/dL 0.00-0.30 mg/dL Final [facility]: [address] [place] [address] 07/19/2020 Hepatitis Panel (A+B+C), Acute, Serum Normal Hepatitis C Virus Josy Index 0.1 index <0.8 index Final [facility]: [address] [place] [address] Normal Hepatitis B Surface Antigen negative negative [facility]: [address] [place] [address] Normal Hepatitis B Core Antibody IgM negati ve negative [facility]: [address] [place] [address] Normal Hepatitis a Antibody IgM negative ne gative [facility]: [address] [place] [address] 07/19/2020 Hepatitis B Surface Ab, Quantitative, Serum Low Hepatitis B Surf Ab Quant <3.1 mIU/mL immunity>9.9 mIU/mL [facility] dical Center: [address] [place] [address] 07/19/2020 Hepatitis B Core Antibody IgG Normal Hepatitis B Core Antibody IgG negative negative [facility]: [address] [place] [address] 07/19/2020 Ebv Ab Comprehensive Normal Ebv Viral Capsi d Ag IgM <36.0 U/mL 0.0-35.9 U/mL [facility]: 83 0 [facility] High Ebv Viral Capsid Ag IgG 96.6 U/mL 0. 0-17.9 U/mL [facility]: 0 [facility] High Ebv Ab to Nuclear Antigen 554.0 U/mL 0.0-17.9 U/mL [facility]: 0 [facility] Normal Ebv Interpretation . Fin [facility]: 0 [facility] 07/19/2020 Smooth Muscle Ab, Serum Normal Anti -smooth Muscle Antibody 9 units 0-[address] [facility] Ce nter: [address] [place] [address] 07/19/2020 Ebv PCR Qual Whole Bld Normal Ebv PCR Qual Whole Bld negative negative [facility]: 83 0 [facility] 07/19/2020 Ebv Viral Capsid Ag IgG High Ebv Viral Ca psid Ag IgG 97.4 U/mL 0.0-17.9 U/mL [facility]: 83 0 [facility] 07/19/2020 Ebv Viral Capsid Ag IgM Normal Ebv Viral Capsid Ag IgM <36.0 U/mL 0.0-35.9 U/mL [facility] Ce nter: [address] [facility] 07/19/2020 IBRAHIMA (Antinuclear Antibodies) Titer + Pattern, Ifa, Ser um ABNORMAL IBRAHIMA (Hep2) positive . Final [facility]: [address] [facility] Normal IBRAHIMA Homogeneous Pattern tnp . [facility]: [address] [facility] Normal IBRAHIMA Nucleolar Pattern tnp . [facility]: [address] [facility] Normal IBRAHIMA Speckled Pattern 1:80 . [facility]: [address] [facility] Normal IBRAHIMA Centromere Pattern tnp . [facility]: [address] [facility] Normal IBRAHIMA Spindle Apparatus Pattern tnp . [facility]: [address] [facility] Normal IBRAHIMA Nuclear Membrane Pattern tnp . [facility]: [address] [facility] Normal IBRAHIMA Midbody Pattern tnp . [facility]: [address] [facility] Normal IBRAHIMA Nuclear Dot Pattern tnp . [facility]: [address] [facility] Normal IBRAHIMA Pcna Pattern tnp . Jaylin [facility]: [address] [facility] Normal IBRAHIMA Centriole Pattern tnp . [facility]: [address] [facility] Normal IBRAHIMA Note . [facility]: [address] [facility] 07/19/2020 Liver-kidney Microsomal Josy Normal Liver-kidney Microsomal Josy <20.1 units 0.0-20.[address] [facility] Ce nter: [address] [facility] 07/19/2020 IgG Subclasses(1-4) Normal IgG Subclass 1 541 mg/dL 248-810 mg/dL [facility]: 83 0 [facility] Normal IgG Subclass 2 227 mg/dL 130-555 mg/ dL [facility]: [address] [facility] Normal IgG Subclass 3 60 mg/dL 15-102 mg/dL [facility]: [address] [facility] Normal IgG Subclass 4 27 mg/dL 2-96 mg/dL F inal [facility]: [address] [facility] Normal IgG Serum (Part of Subclasses) 936 m g/dL 603-1613 mg/dL [facility]: [address] [facility] 07/19/2020 Mitochondrial Ab, Serum Normal Anti -mitochondrial Antibody <20.0 units 0.0-20.0 units [facility] nter: [address] [facility] 07/19/2020 L Pneumophilia 1-6 IgG Normal L Pneumophili a 1-6 IgG <1:128 <1:128 [facility]: 83 0 [facility] 07/19/2020 L Pneumophilia 1-6 IgM Normal L Pneumophili a 1-6 IgM < 1:16 < 1:16 [facility]: 83 0 [facility] 07/19/2020 Chlamydia Twar Antibodies Normal Chlamydia Trachomatis IgG < 1:100 [facility]: 83 0 [facility] Normal Chlamydia Trachomatis IgM < 1:10 < 1 :10 [facility]: [address] [facility] Normal Chlamydia Psittaci IgG < 1:10 0 [facility]: [address] [facility] Normal Chlamydia Psittaci IgM < 1:10 < 1:10 [facility]: [address] [facility] ABNORMAL Chlamydia Pneumoniae IgG 1:100 < 1:100 [facility]: [address] [facility] Normal Chlamydia Pneumoniae IgM < 1:10 < 1: 10 [facility]: [address] [facility] 07/19/2020 Mycoplasma Pneumoniae IgG&M Ab High Mycoplasma Pneumoniae IgG 436 U/mL 0-99 U/mL [facility] nter: [address] [facility] Normal Mycoplasma Pneumoniae IgM <770 U/mL 0-769 U/mL [facility]: 0 [facility] 07/18/2020 CBC W/ Auto Diff Low White Blood Count 3.3 10 4.0-10.0 10 [facility]: [address] [place] [address] Normal Red Blood Count 5.23 10 4.30-6.10 10 [facility]: [address] [facility] Normal Hemoglobin 14.4 g/dL 13.5-17.5 g/dL [facility]: [address] [place] [address] Normal Hematocrit 44.7 % 42.0-52.0 % [facility]: [address] [place] [address] Normal Mean Corpuscular Volume 85.5 fL 80.0 -96.0 fL [facility]: [address] [place] [address] Normal Mean Corpuscular Hemoglobin 27.5 pg 27.0-33.0 pg [facility]: [address] [place] [address] Normal Mean Corpuscular HGB Conc 32.2 g/dL 32.0-36.5 g/dL [facility]: 0 [facility] Normal Red Cell Distribution Width 12.4 % 1 1.5-14.5 % [facility]: [address] [place] [address] Low Platelet Count, Automated 114 10 150 -450 10 [facility]: [address] [facility] Normal Neutrophils % 64.2 % 36.0-66.0 % [facility]: [address] [facility] Normal Lymph % 29.4 % 24.0-44.0 % [facility]: [address] [facility] High Hartley % 5.8 % 0.0-5.0 % [facility]: [address] [facility] Normal Eos % 0.0 % 0.0-3.0 % [facility]: [address] [facility] Normal Baso % 0.0 % 0.0-1.0 % [facility]: [address] [facility] Normal Immature Granulocyte % 0.6 % 0-3.0 % [facility]: [address] [facility] Normal Nucleated Red Blood Cell % 0.0 % 0- 0 % [facility]: [address] [facility] Normal Neutrophils # 2.1 10 1.5-8.5 10 [facility]: [address] [facility] Low Lymph # 1.0 10 1.5-5.0 10 [facility]: [address] [facility] Normal Hartley # 0.2 10 0.0-0.8 10 [facility]: [address] [facility] Normal Eos # 0.0 10 0.0-0.5 10 [facility]: [address] [facility] Normal Baso # 0.0 10 0.0-0.2 10 [facility]: [address] [facility] 07/18/2020 Lactic Acid, Serum or Plasma Normal Lactic Acid Sepsis Protocol 2.0 mmol/L 0.4-2.0 mmol/L [facility]: 0 [facility] 07/18/2020 Hepatic Function Panel, Serum High AST/SG OT 158 U/L 7-37 U/L [facility]: 0 [facility] High ALT/SGPT 218 U/L 12-78 U/L [facility]: [address] [facility] Normal Alkaline Phosphatase 70 U/L 45-117 U /L [facility]: 0 [facility] Normal Bilirubin,total 0.6 mg/dL 0.2-1.0 mg /dL [facility]: 0 [facility] High Bilirubin,direct 0.3 mg/dL 0.0-0.2 m g/dL [facility]: 0 [facility] Normal Total Protein 7.2 gm/dL 6.4-8.2 gm/d L [facility]: 0 [facility] Normal Albumin 3.8 gm/dL 3.2-5.2 gm/dL Jaylin l [facility]: 830 [facility] Normal Albumin/globulin Ratio 1.1 [facility]: 830 [facility] 07/18/2020 BMP, Serum or Plasma High Glucose, Fastin g 276 mg/dL 70-100 mg/dL [facility]: 83 0 [facility] Normal Blood Urea Nitrogen 9 mg/dL 7-18 mg/ dL [facility]: 830 [facility] Normal Creatinine for GFR 1.05 mg/dL 0.70-1 .30 mg/dL [facility]: 830 [facility] Normal Glomerular Filtration Rate > 60.0 >6 0 [facility]: 830 [facility] Normal Sodium Level 137 mEq/L 136-145 mEq/L [facility]: 830 [facility] Normal Potassium Serum 3.5 mEq/L 3.5-5.1 mE q/L [facility]: 830 [facility] Normal Chloride Level 101 mEq/L 98-107 mEq/ L [facility]: 830 [facility] Normal Carbon Dioxide Level 28 mEq/L 21-32 mEq/L [facility]: 830 [facility] Normal Anion Gap 8 mEq/L 8-16 mEq/L [facility]: 830 [facility] Low Calcium Level 8.0 mg/dL 8.5-10.1 mg/ dL [facility]: 830 [facility] 07/18/2020 Influenza A/B RSV Covid Amp Normal Influenza a Amplification negative negative [facility] nter: 830 [facility] Normal Influenza B Amplification negative n egative [facility]: 8[address] [facility] Normal RSV Amplification negative negative [facility]: 8[address] [facility] Normal Sars Covid-19 Amplification negative negative [facility]: 830 [facility] 07/18/2020 Glucose, Fingerstick, Blood High Bedside Glucose 178 mg/dL 70- 105 mg/dL [facility]: 83 0 [facility] 07/18/2020 Gas Panel, Arterial Blood Normal ABG pH (Ar terial) 7.368 units 7.350-7.450 units [facility]: 83 0 [facility] Normal ABG Partial Pressure CO2 44.7 mmHg 3 5.0-45.0 mmHg [facility]: 830 [facility] Normal ABG Partial Pressure O2 85.3 mmHg 75 .0-100.0 mmHg [facility]: 830 [facility] Normal ABG Total CO2 26.5 mEq/L 22.0-29.0 m Eq/L [facility]: 830 [facility] Normal Abg Hco3 25.1 mEq/L 22.0-26.0 mEq/L [facility]: 830 [facility] Normal ABG Base Excess -0.5 -2.0-2.0 Jaylin l [facility]: 830 [facility] Normal ABG Standard HCO3 24.1 mEq/L 22.0-26 .0 mEq/L [facility]: 830 [facility] Normal ABG O2 Saturation 96.5 % 95.0-99.0 % [facility]: 830 [facility] 07/18/2020 Respiratory Virus Panel NASOPHARYNX No observ ation recorded. [facility]: 830 [facility] 07/18/2020 Culture, Blood BLOOD No observation recorded. [facility]: 830 [facility] 07/11/2020 Influenza A/B RSV Covid Amp Normal Influenza a Amplification negative negative [facility] nter: 830 [facility] Normal Influenza B Amplification negative n egative [facility]: 8[address] [facility] Normal RSV Amplification negative negative [facility]: 8[address] [facility] Normal Sars Covid-19 Amplification negative negative [facility]: 830 [facility] 06/19/2020 HbA1C (Hemoglobin a1C), Blood High Hba1C 10. 8 % Final Past Encounters 02/15/2021 Exposure to SARS-CoV-2 Enzo Powers MD: [address] [place] [address], Ph. 08/21/2020 Pneumonia; Type 2 Diabetes Mellitus; [place] Virus Hepatitis Aline Palacios MD: [address] [place] [address], Ph. Social History Tobacco Smoking Status Former Smoker Vaccine List Vaccine Type HPV, quadrivalent 09/12/20120.5 mL 11/13/20120.5 mL 04/05/20130.5 mL influenza, seasonal, injectable, preserv ative free 04/16/2012 04/22/2013 Plan of Care Reminders Provider Appointments None recorded. Lab None recorded. Referral None recorded. Procedures None recorded. Surgeries None recorded. Imaging None recorded. Vitals 08/21/2020 11:20[facility] DISCHARGE Height Weight BMI Blood Pressure 68 in 197 lbs 6.4 oz 30 kg/m2 123/80 mm[Hg ] 03/16/2020 Height Weight BMI Blood Pressure 68 in 224 lbs 4 oz 34.22 kg/m2 107/76 mm[Hg] 06/19/2019 Height Weight BMI Blood Pressure 68 in 233 lbs 35.56 kg/m2 118/79 mm[Hg] 02/27/2019 Height Weight BMI Blood Pressure 68 in 228 lbs 34.79 kg/m2 125/79 mm[Hg] 01/04/2019 Height Weight BMI Blood Pressure 68 in 221 lbs 33.72 kg/m2 136/83 mm[Hg] 08/08/2018 Height Weight BMI Blood Pressure 68 in 224 lbs 34.18 kg/m2 127/76 mm[Hg]
--- OUTSIDE RECORDS SUMMARY | 2021-05-30 23:25 | CCD ---
Author Author [facility] Organization [facility] Address Unknown Phone Unavailable Care Team Providers Care Pilot Instructor Name Role Phone Eloina Ortega MD Unavailable Unavailable Eloina Ortega MD Unavailable Unavailable Eloina Ortega MD Unavailable Unavailable Eloina Ortega MD Unavailable Unavailable Eloina Ortega MD Unavailable Unavailable Eloina Ortega MD Unavailable Unavailable Eloina Ortega MD Unavailable Unavailable Eloina Ortega MD Unavailable Unavailable Eloina Ortega MD Unavailable Unavailable Eloina Ortega MD Unavailable Unavailable Eloina Ortega MD Unavailable Unavailable Eloina Ortega MD Unavailable Unavailable Eloina Ortega MD Unavailable Unavailable Eloina Ortega MD Unavailable Unavailable Eloina Ortega MD Unavailable Unavailable Eloina Ortega MD Unavailable Unavailable Eloina Ortega MD Unavailable Unavailable Eloina Ortega MD Unavailable Unavailable Eloina Ortega MD Unavailable Unavailable Eloina Ortega MD Unavailable Unavailable Eloina Ortega MD Unavailable Unavailable Eloina Ortega MD Unavailable Unavailable Eloina Ortega MD Unavailable Unavailable Eloina Ortega MD Unavailable Unavailable Eloina Ortega MD Unavailable Unavailable Eloina Ortega MD Unavailable Unavailable Elonia Ortega MD Unavailable Unavailable Eloina Ortega MD Unavailable Unavailable Eloina Ortega MD Unavailable Unavailable Eloina Ortega MD Unavailable Unavailable Lily De La Garza PIPE FITTER WELDING PIPE FITTER WELDING Unavailable Unavailable Tana, Fabiola Unavailable Unavailable Tana, Fabiola Unavailable Unavailable Tana, Fabiola Unavailable Unavailable Tana, Fabiola Unavailable Unavailable Tana, Fabiola Unavailable Unavailable Tana, Fabiola Unavailable Unavailable Tana, Fabiola Unavailable Unavailable Tana, Fabiola Unavailable Unavailable Tana, Fabiola Unavailable Unavailable Tana, Fabiola Unavailable Unavailable Tana, Fabiola Unavailable Unavailable Tana, Fabiola Unavailable Unavailable Tana, Fabiola Unavailable Unavailable Tana, Fabiola Unavailable Unavailable Tana, Fabiola Unavailable Unavailable Tana, Fabiola Unavailable Unavailable Tana, Fabiola Unavailable Unavailable Tana, Fabiola Unavailable Unavailable Tana, Fabiola Unavailable Unavailable Tana, Fabiola Unavailable Unavailable Tana, Fabiola Unavailable Unavailable Tana, Fabiola Unavailable Unavailable Tana, Fabiola Unavailable Unavailable Tana, Fabiola Unavailable Unavailable Tana, Fabiola Unavailable Unavailable Tana, Fabiola Unavailable Unavailable ErinIan esquivel Unavailable Unavailable Rechlin, P Ray DO Unavailable Unavailable Rechlin, P Ray DO Unavailable Unavailable Rechlin, P Ray DO Unavailable Unavailable Rechlin, P Ray DO Unavailable Unavailable Rechlin, P Ray DO Unavailable Unavailable Rechlin, P Ray DO Unavailable Unavailable Rechlin, P Ray DO Unavailable Unavailable Rechlin, P Ray DO Unavailable Unavailable Rechlin, P Ray DO Unavailable Unavailable Rechlin, P Ray DO Unavailable Unavailable Rechlin, P Ray DO Unavailable Unavailable Rechlin, P Ray DO Unavailable Unavailable Rechlin, P Ray DO Unavailable Unavailable Rechlin, P Ray DO Unavailable Unavailable Rechlin, P Ray DO Unavailable Unavailable Rechlin, P Ray DO Unavailable Unavailable Rechlin, P Ray DO Unavailable Unavailable Rechlin, P Ray DO Unavailable Unavailable Rechlin, P Ray DO Unavailable Unavailable Rechlin, P Ray DO Unavailable Unavailable Rechlin, P Ray DO Unavailable Unavailable Rechlin, P Ray DO Unavailable Unavailable Rechlin, P Ray DO Unavailable Unavailable Rechlin, P Ray DO Unavailable Unavailable Rechlin, P Ray DO Unavailable Unavailable Rechlin, P Ray DO Unavailable Unavailable Rechlin, P Ray DO Unavailable Unavailable Rechlin, P Ray DO Unavailable Unavailable Rechlin, P Ray DO Unavailable Unavailable Rechlin, P Ray DO Unavailable Unavailable Rechlin, P Ray DO Unavailable Unavailable Rechlin, P Ray DO Unavailable Unavailable Rechlin, P Ray DO Unavailable Unavailable Rechlin, P Ray DO Unavailable Unavailable Rechlin, P Ray DO Unavailable Unavailable Rechlin, P Ray DO Unavailable Unavailable Rechlin, P Ray DO Unavailable Unavailable Rechlin, P Ray DO Unavailable Unavailable Rechlin, P Ray DO Unavailable Unavailable Rechlin, P Ray DO Unavailable Unavailable Rechlin, P Ray DO Unavailable Unavailable Rechlin, P Ray DO Unavailable Unavailable Rechlin, P Ray DO Unavailable Unavailable Rechlin, P Ray DO Unavailable Unavailable Rechlin, P Ray DO Unavailable Unavailable Rechlin, P Ray DO Unavailable Unavailable Rechlin, P Ray DO Unavailable Unavailable Rechlin, P Ray DO Unavailable Unavailable Rechlin, P Ray DO Unavailable Unavailable Rechlin, P Ray DO Unavailable Unavailable Rechlin, P Ray DO Unavailable Unavailable Royer Cook MD Unavailable Unavailable Royer Cook MD Unavailable Unavailable Royer Cook MD Unavailable Unavailable Royer Cook MD Unavailable Unavailable Royer Cook MD Unavailable Unavailable Cook, Royer Chandler MD Unavailable Unavailable Cook, Royer Chandler MD Unavailable Unavailable Cook, Royer Chandler MD Unavailable Unavailable Cook, Royer Chandler MD Unavailable Unavailable Cook, Royer Chandler MD Unavailable Unavailable Cook, Royer Chandler MD Unavailable Unavailable Cook, Royer Chandler MD Unavailable Unavailable Cook, Royer Chandler MD Unavailable Unavailable Cook, Royer Chandler MD Unavailable Unavailable Cook, Royer Chandler MD Unavailable Unavailable Cook, Royer Chandler MD Unavailable Unavailable Cook, Royer Chandler MD Unavailable Unavailable Cook, Royer Chandler MD Unavailable Unavailable Cook, Royer Chandler MD Unavailable Unavailable Cook, Royer Chandler MD Unavailable Unavailable Cook, Royer Chandler MD Unavailable Unavailable Cook, Royer Chandler MD Unavailable Unavailable Cook, Royer Chandler MD Unavailable Unavailable Coko, Royer Chandler MD Unavailable Unavailable Cook, Royer Chandler MD Unavailable Unavailable Cook, Royer Chandler MD Unavailable Unavailable Cook, Royer Chandler MD Unavailable Unavailable Cook, Royer Chandler MD Unavailable Unavailable Cook, Royer Chandler MD Unavailable Unavailable Cook, Royer Chandler MD Unavailable Unavailable Cook, Royer Chandler MD Unavailable Unavailable Cook, Royer Chandler MD Unavailable Unavailable Cook, Royer Chandler MD Unavailable Unavailable Cook, Royer Chandler MD Unavailable Unavailable Cook, Royer Chandler MD Unavailable Unavailable Cook, Royer Chandler MD Unavailable Unavailable Cook, Royer Chandler MD Unavailable Unavailable Cook, Royer Chandler MD Unavailable Unavailable Cook, Royer Chandler MD Unavailable Unavailable Cook, Royer Chandler MD Unavailable Unavailable Cook, Royer Chandler MD Unavailable Unavailable Cook, Royer Chandler MD Unavailable Unavailable Cook, Royer Chandler MD Unavailable Unavailable Cook, Royer Chandler MD Unavailable Unavailable Cook, Royer Chandler MD Unavailable Unavailable Cook, Royer Chandler MD Unavailable Unavailable Cook, Royer Chandler MD Unavailable Unavailable Cook, Royer Chandler MD Unavailable Unavailable Cook, Royer Chandler MD Unavailable Unavailable Cook, Royer Chandler MD Unavailable Unavailable Joey, Royer Chandler MD Unavailable Unavailable Cook, Royer Chandler MD Unavailable Unavailable Cook, Royer Chandler MD Unavailable Unavailable Cook, Royer Chandler MD Unavailable Unavailable Frederic, A Lily PIPE FITTER WELDING Unavailable Unavailable Frederic, A Lily PIPE FITTER WELDING Unavailable Unavailable Frederic, A Lily PIPE FITTER WELDING Unavailable Unavailable Frederic, A Lily PIPE FITTER WELDING Unavailable Unavailable Frederic, A Lily PIPE FITTER WELDING Unavailable Unavailable Frederic, A Lily PIPE FITTER WELDING Unavailable Unavailable Frederic, A Lily PIPE FITTER WELDING Unavailable Unavailable Frederic, A Lily PIPE FITTER WELDING Unavailable Unavailable Frederic, A Lily PIPE FITTER WELDING Unavailable Unavailable Frederic, A Lily PIPE FITTER WELDING Unavailable Unavailable Frederic, A Lily PIPE FITTER WELDING Unavailable Unavailable Frederic, A Lily PIPE FITTER WELDING Unavailable Unavailable Frederic, A Lily PIPE FITTER WELDING Unavailable Unavailable Frederic, A Lily PIPE FITTER WELDING Unavailable Unavailable Frederic, A Lily PIPE FITTER WELDING Unavailable Unavailable Frederic, A Lily PIPE FITTER WELDING Unavailable Unavailable Frederic, A Lily PIPE FITTER WELDING Unavailable Unavailable Frederic, A Lily PIPE FITTER WELDING Unavailable Unavailable Frederic, A Lily PIPE FITTER WELDING Unavailable Unavailable Frederic, A Lily PIPE FITTER WELDING Unavailable Unavailable Frederic, A Lily PIPE FITTER WELDING Unavailable Unavailable Frederic, A Lily PIPE FITTER WELDING Unavailable Unavailable Frederic, A Lily PIPE FITTER WELDING Unavailable Unavailable Frederic, A Lily PIPE FITTER WELDING Unavailable Unavailable Frederic, A Lily PIPE FITTER WELDING Unavailable Unavailable Frederic, A Lily PIPE FITTER WELDING Unavailable Unavailable Frederic, A Lily PIPE FITTER WELDING Unavailable Unavailable Frederic, A Lily PIPE FITTER WELDING Unavailable Unavailable Frederic, A Lily PIPE FITTER WELDING Unavailable Unavailable Frederic, A Lily PIPE FITTER WELDING Unavailable Unavailable Frederic, A Lily PIPE FITTER WELDING Unavailable Unavailable Juliet Salas Unavailable Re-disclosure Warning The records that you are about to access may contain information from federally-assisted alcohol or drug abuse programs. If such information is present, then the following federally mandated warning applies: This information has been disclosed to you from records protected by federal confidentiality rules (42 CFR part 2). The federal rules prohibit you from making any further disclosure of this information unless further disclosure is expressly permitted by the written consent of the person to whom it pertains or as otherwise permitted by 42 CFR part 2. A general authorization for the release of medical or other information is NOT sufficient for this purpose. The Federal rules restrict any use of the information to criminally investigate or prosecute any alcohol or drug abuse patient.The records that you are about to access may contain highly sensitive health information, the redisclosure of which is protected by Article 27-F of the [facility] Public Health law. If you continue you may have access to information: Regarding HIV / AIDS; Provided by facilities licensed or operated by the [facility] Office of Mental Health; or Provided by the [facility] Office for People With Developmental Disabilities. If such information is present, then the following [facility] mandated warning applies: This information has been disclosed to you from confidential records which are protected by state law. State law prohibits you from making any further disclosure of this information without the specific written consent of the person to whom it pertains, or as otherwise permitted by law. Any unauthorized further disclosure in violation of state law may result in a fine or usp sentence or both. A general authorization for the release of medical or other information is NOT sufficient authorization for further disc losure. Family History Family Member Name Family Member Gender Family Member Status Date o f Status Description Data Source(s) Unknown Male Problem [facility] ([facility]) Encounters Encounter Providers Location Date Indications Data Source(s ) Psychiatric Diagnostic Evaluation (Non-Medical) Attender: Kemar dean Maritza [facility] 11/02/2020 10:00:00 AM EDT - 11/02/2020 10:00:00 AM EDT [facility] ([facility]) Attender: Juliet Salas 11/02/2020 12:00:00 AM EDT [facility] ([facility]) Extended Individual Psychotherapy - 45 min Attender: Mac villafana Maritza [facility] 10/26/2020 10:00:00 AM EDT - 10/26/2020 10:00:00 AM EDT [facility] ([facility]) Attender: Juliet Salas 10/26/2020 12:00:00 AM EDT [facility] ([facility]) Psychiatric Diagnostic Evaluation (Non-Medical) Attender: Kemar dean [facility] 10/22/2020 01:00:00 AM EDT - 10/22/2020 01:00:00 AM EDT [facility] ([facility]) Attender: Juliet Salas 10/22/2020 12:00:00 AM EDT [facility] ([facility]) Brief Individual Psychotherapy - 30 min Attender: Ian felipe [facility] 10/16/2020 10:00:00 AM EDT - 10/16/2020 10:00:00 AM EDT [facility] ([facility]) Attender: Ian Khan 10/16/2020 12:00:00 AM E DT [facility] ([facility]) Outpatient Attender: Eloina Locke/Evette/Sony/Arnie arrooy 08/24/2020 12:30:00 PM EST [facility] ([facility]) Anita Fajardo MD: [address] [place] [id number], Ph. Attender: [facility] 08/21/2020 12:00:00 AM EST [facility] ([facility]) Outpatient Attender: Ramesh Locke/[place]unde[place]/Sony/R eindl 08/04/2020 12:23:00 AM EST [facility] ([facility]) Outpatient Attender: Ramesh Locke/[place]/Sony/R eindl 08/03/2020 12:23:00 AM EST [facility] ([facility]) Outpatient Attender: Ramesh Locke/[place]/Sony/R eindl 08/02/2020 12:23:00 AM EST [facility] ([facility]) Outpatient Attender: Ramesh Locke/[place]/Sony/R eindl 08/01/2020 12:23:00 AM EST [facility] ([facility]) Outpatient Attender: Ramesh Locke/[place]/Sony/R eindl 07/31/2020 12:23:00 AM EST [facility] ([facility]) Outpatient Attender: Ray Saldana/[place]/Sony/Arnie ndl 07/30/2020 12:23:00 AM EST [facility] ([facility]) Outpatient Attender: Ray Saldana/[place]/Sony/Arnie ndl 07/29/2020 12:23:00 AM EST [facility] ([facility]) Outpatient Attender: Ray Saldana/[place]/Sony/Arnie ndl 07/28/2020 12:23:00 AM EST [facility] ([facility] Outpatient Attender: Ray Saldana/[place]/Sony/Arnie ndl 07/26/2020 12:23:00 AM EST [facility] ([facility] Outpatient Attender: Ray Saldana/[place]/Sony/Arnie ndl 07/25/2020 12:23:00 AM EST [facility] ([facility]) Outpatient Attender: Ray Saldana/[place]/Sony/Arnie ndl 07/24/2020 12:23:00 AM EST [facility] ([facility]) Outpatient Attender: Eloina Locke/[place]/Sony/Arnie ndl 07/22/2020 12:23:00 AM EST [facility] ([facility]) Outpatient Attender: Eloina Locke/[place]/Sony/Arnie ndl 07/21/2020 12:23:00 AM EST [facility] ([facility] Outpatient Attender: Eloina Locke/[place]/Sony/Arnie ndl 07/20/2020 12:23:00 AM EST [facility] ([facility] Outpatient Attender: Eloina Locke/[place]/Sony/Arnie ndl 07/19/2020 12:23:00 AM EST [facility] ([facility]) Outpatient Attender: Lily AVELAR 04/18/2020 09:1 8:00 PM EDT [facility] Outpatient Attender: ROSIO AVELAR 04/18/2020 09:17:59 P M EDT [facility] Outpatient Attender: ROSIO AVELAR 04/07/2020 11:36:00 A M EDT [facility] Outpatient Attender: ROSIO AVELAR 04/05/2020 03:28:01 P M EDT [facility] Outpatient Attender: Lily AVELAR 04/05/2020 03:2 8:00 PM EDT [facility] Outpatient Attender: ROSIO AVELAR 04/05/2020 03:26:01 P M EDT [facility]/05/2020 03:2 6:01 PM EDT [facility] Medications Medication Brand Name Start Date Product Form Dose Route Admi nistrative Instructions Pharmacy Instructions Status Indications Reaction Description Data Source(s) 250 mg 04/06/2021 12:00:00 AM EDT tablet 6 TAKE 2 TABLETS BY MOUTH ON DAY 1 THEN 1 TABLET ONCE DAILY ON DAYS 2-5 TAKE 2 TABLETS BY MOUTH ON DAY 1 THEN 1 TABLET ONCE DAILY ON DAYS 2-5 SOLD: 04/06/2021 [facility] 113-14 mcg/actuation 09/30/2020 12:00:00 AM EDT aerosol powdr breath activated 1 INHALE ONE PUFF BY MOUTH TWICE A DAY INHA LE ONE PUFF BY MOUTH TWICE A DAY SOLD: 10/19/2020 [facility] BLOOD SUGAR DIAGNOSTIC 08/27/2020 12:00:00 AM EST strip 100 TEST BEFORE MEALS AND AT BEDTIME TEST BEFORE MEALS AND AT BEDTIME SOLD: 10/19/2020 [facility] BLOOD SUGAR DIAGNOSTIC 08/27/2020 12:00:00 AM EST strip 100 TEST BEFORE MEALS AND AT BEDTIME TEST BEFORE MEALS AND AT BEDTIME SOLD: 09/02/2020 [facility] 33 gauge 08/27/2020 12:00:00 AM EST misc 100 USE BEFORE MEALS & AT BEDTIME USE BEFORE MEALS & AT BEDTIME SOLD: 09/02/2020 [facility] BLOOD SUGAR DIAGNOSTIC 08/27/2020 12:00:00 AM EST strip 100 TEST BEFORE MEALS AND AT BEDTIME TEST BEFORE MEALS AND AT BEDTIME SOLD: 02/16/2021 [facility] Prednisone 10 MG Oral Tablet Prednisone 08/24/2020 12:00:00 AM EST completed [facility] ([facility] ) 1,000 mg 08/21/2020 12:00:00 AM EST tablet 60 TAKE ONE TABLET BY MOUTH TWICE A DAY TAKE ONE TABLET BY MOUTH TWICE A DAY SOLD: 04/06/2021 [facility] Metformin hydrochloride 1000 MG Oral Tablet 1,000 mg METFORM IN HCL 08/21/2020 12:00:00 AM EST tablet 60 TAKE ONE TABLET BY MOUTH TWICE A DAY TAKE ONE TABLET BY MOUTH TWICE A DAY SOLD: 10/19/2020 [facility] Metformin hydrochloride 1000 MG Oral Tablet 1,000 mg METFORM IN HCL 08/21/2020 12:00:00 AM EST tablet 60 TAKE ONE TABLET BY MOUTH TWICE A DAY TAKE ONE TABLET BY MOUTH TWICE A DAY SOLD: 09/02/2020 [facility] Metformin hydrochloride 1000 MG Oral Tablet 1,000 mg METFORM IN HCL 08/21/2020 12:00:00 AM EST tablet 60 TAKE ONE TABLET BY MOUTH TWICE A DAY TAKE ONE TABLET BY MOUTH TWICE A DAY SOLD: 02/16/2021 [facility] BLOOD-GLUCOSE METER 08/06/2020 12:00:00 AM EST misc 1 USE BEFORE MEALS AND AT BEDTIME USE BEFORE MEALS AND AT BEDTIME SOLD: 08/08/2020 [facility] 10 mg 08/06/2020 12:00:00 AM EST tablet 74 TAKE 4 TABLETS BY MOUTH EVERY DAY -7DAYS, TAKE 3 TABLETS BY MOUTH EVERY DAY -7DAYS, TAKE 2 TABLET BY MOUTH EVERY DAY -7DAYS, THEN TAKE 1 TABLET BY MOUTH EVERY DAY -7DAYS, THEN 1/2 TABLET DAILY -7DAYS TAKE 4 TABLETS BY MOUTH EVERY DAY -7DAYS , TAKE 3 TABLETS BY MOUTH EVERY DAY -7DAYS, TAKE 2 TABLET BY MOUTH EVERY DAY -7DAYS, THEN TAKE 1 TABLET BY MOUTH EVERY DAY -7DAYS, THEN 1/2 TABLET DAILY -7DAYS SOLD: 08/06/2020 [facility] BLOOD SUGAR DIAGNOSTIC 08/06/2020 12:00:00 AM EST strip 100 TEST BEFORE MEALS AND AT BEDTIME TEST BEFORE MEALS AND AT BEDTIME SOLD: 08/06/2020 [facility] 33 gauge 08/06/2020 12:00:00 AM EST misc 100 USE BEFORE MEALS AND AT BEDTIME USE BEFORE MEALS AND AT BEDTIME SOLD: 08/06/2020 [facility] ALCOHOL ANTISEPTIC PADS 08/06/2020 12:00:00 AM EST pads, med icated 100 USE BEFORE MEALS AND AT BEDTIME USE BEFORE MEALS AND AT BEDTIME SOLD: 08/06/2020 [facility] 32 gauge x 5/32" 08/06/2020 12:00:00 AM EST needle 100 USE BEFORE MEALS AND AT BEDTIME USE BEFORE MEALS AND AT BEDTIME SOLD: 08/06/2020 [facility] 100 unit/mL (3 mL) 08/06/2020 12:00:00 AM EST insulin pen 15 INJECT 10 UNITS UNDER THE SKIN AT BEDTIME INJECT 10 UNITS UNDER THE SKIN AT BEDTIME SOLD: 08/06/2020 [facility] 40 mg 07/22/2020 12:00:00 AM EST capsule,delayed release (DR/EC) 30 TAKE 1 CAP.BY MOUTH DAILY 30MINUTES BEFORE DINNER FOR NIGHT TIME REFLUX SYMPTOMS TAKE 1 CAP.BY MOUTH DAILY 30MINUTES BEFORE DINNER FOR NIGHT TIME REFLUX SYMPTOMS SOLD: 04/06/2021 [facility] 40 mg 07/22/2020 12:00:00 AM EST capsule,delayed release (DR/EC) 30 TAKE 1 CAP.BY MOUTH DAILY 30MINUTES BEFORE DINNER FOR NIGHT TIME REFLUX SYMPTOMS TAKE 1 CAP.BY MOUTH DAILY 30MINUTES BEFORE DINNER FOR NIGHT TIME REFLUX SYMPTOMS SOLD: 02/16/2021 [facility] 40 mg 07/22/2020 12:00:00 AM EST capsule,delayed release (DR/EC) 30 TAKE 1 CAP.BY MOUTH DAILY 30MINUTES BEFORE DINNER FOR NIGHT TIME REFLUX SYMPTOMS TAKE 1 CAP.BY MOUTH DAILY 30MINUTES BEFORE DINNER FOR NIGHT TIME REFLUX SYMPTOMS SOLD: 05/19/2021 [facility] 40 mg 07/22/2020 12:00:00 AM EST capsule,delayed release (DR/EC) 30 TAKE 1 CAP.BY MOUTH DAILY 30MINUTES BEFORE DINNER FOR NIGHT TIME REFLUX SYMPTOMS TAKE 1 CAP.BY MOUTH DAILY 30MINUTES BEFORE DINNER FOR NIGHT TIME REFLUX SYMPTOMS SOLD: 08/06/2020 [facility] 875-125 mg 07/16/2020 12:00:00 AM EST tablet 20 TAKE ONE TABLET BY MOUTH TWICE A DAY FOR 10 DAYS TAKE ONE TABLET BY MOUTH TWICE A DAY FOR 10 DAYS SOLD: 07/16/2020 [facility] 90 mcg/actuation 07/16/2020 12:00:00 AM EST HFA aerosol inha ler 8 INHALE TWO PUFFS BY MOUTH EVERY 4 TO 6 HOURS NEEDED FOR WHEEZING INHALE TWO PUFFS BY MOUTH EVERY 4 TO 6 HOURS NEEDED FOR WHEEZING SOLD: 07/16/2020 [facility] 799-56-207-40 mg/30 mL 07/16/2020 12:00:00 AM EST mouthwash 237 SWISH AND SPIT 10 ML FOUR TIMES A DAY NEEDED FOR MUCOSITIS SWISH AND SPIT 10 ML FOUR TIMES A DAY NEEDED FOR MUCOSITIS SOLD: 07/16/2020 [facility] benzonatate 100 MG Oral Capsule BENZONATATE 07/16/2020 12:00:00 AM EST capsule 30 TAKE ONE CAPSULE BY MOUTH THREE TIMES A DAY FOR COUGH TAKE ONE CAPSULE BY MOUTH THREE TIMES A DAY FOR COUGH SOLD: 07/16/2020 [facility] 500 mg 07/16/2020 12:00:00 AM EST tablet 30 TAKE ONE TABLET BY MOUTH TWICE A DAY WITH FOOD TAKE ONE TABLET BY MOUTH TWICE A DAY WITH FOOD SOLD: 07/16/2020 [facility] Metformin hydrochloride 1000 MG Oral Tablet 1,000 mg METFORM IN HCL 06/20/2020 12:00:00 AM EST tablet 60 TAKE ONE TABLET BY MOUTH TWICE A DAY TAKE ONE TABLET BY MOUTH TWICE A DAY SOLD: 06/22/2020 [email or web address] 40 mg 08/07/2019 12:00:00 AM EST capsule,delayed release (DR/EC) 30 TAKE 1 CAPSULE BY MOUTH DAILY ( ABOUT 30 MINUTES BEFORE DINNERTIME FOR NIGHT TIME REFLUX SYMPTOMS) TAKE 1 CAPSULE BY MOUTH DAILY ( ABOUT 30 MINUTES BEFORE DINNERTIME FOR NIGHT TIME REFLUX SYMPTOMS) SOLD: 06/22/2020 [facility] 40 mg 08/07/2019 12:00:00 AM EST capsule,delayed release (DR/EC) 30 TAKE 1 CAPSULE BY MOUTH DAILY ( ABOUT 30 MINUTES BEFORE DINNERTIME FOR NIGHT TIME REFLUX SYMPTOMS) TAKE 1 CAPSULE BY MOUTH DAILY ( ABOUT 30 MINUTES BEFORE DINNERTIME FOR NIGHT TIME REFLUX SYMPTOMS) SOLD: 05/25/2020 [facility] Metformin hydrochloride 500 MG Oral Tabl et metformin 500 mg tablet TAKE ONE TABLET BY MOUTH TWICE A DAY metformin 500 mg tablet TAKE ONE TABLET BY MOUTH TWICE A DAY completed me tformin hydrochloride 500 MG Oral Tablet [facility] ([facility]) Acetaminophen 325 MG / Hydrocodone Theresa trate 5 MG Oral Tablet hydrocodone 5 mg- acetaminophen 325 mg tablet TAKE 1 TABLET BY MOUTH EVERY 4 HOURS NEEDED FOR MILD/MODERATE PAIN PS 1 7 MAXIMUM DAILY DOSE 6 TABLETS hydrocodone 5 mg- acetaminophen 325 mg tablet TAKE 1 TABLET BY MOUTH EVERY 4 HOURS NEEDED FOR MILD/MODERATE PAIN PS 1 7 MAXIMUM DAILY DOSE 6 TABLETS completed acetaminophen 325 MG / hydrocodo ne bitartrate 5 MG Oral Tablet [facility] ([facility]) first mouthwash blm suspension SWISH AND SPIT 10 ML FOUR TIMES A DAY NEEDED FOR MUCOSITIS completed fi rst mouthwash blm suspension [facility] ([facility]) Amoxicillin 875 MG / Clavulanate 125 MG Oral Tablet amoxicillin 875 mg-potassium clavulanate 125 mg tablet TAKE ONE TABLET BY MOUTH TWICE A DAY FOR 10 DAYS amoxicillin 875 mg-potassium clavulanate 125 mg tablet TAKE ONE TABLET BY MOUTH TWICE A DAY FOR 10 DAYS completed amoxicillin 875 MG / clavulanate 125 MG Oral Tablet [facility] ([facility]) Sucralfate 1000 MG Oral Tablet sucralfat e 1 gram tablet TAKE ONE TABLET BY MOUTH TWO TIMES A DAY sucralfate 1 gram tablet TAKE ONE TABLET BY MOUTH TWO TIMES A DAY completed sucralfate 1000 MG Oral Tablet [facility] ([facility]) benzonatate 100 MG Oral Capsule benzonat ate 100 mg capsule TAKE ONE CAPSULE BY MOUTH THREE TIMES A DAY FOR COUGH benzonatate 100 mg capsule TAKE ONE CAPS ULE BY MOUTH THREE TIMES A DAY FOR COUGH comp leted benzonatate 100 MG Oral Capsule [facility] ([facility]) Insurance Providers Payer name Policy type / Coverage type Policy ID Covered republican ID Covered republican's relationship to ho Policy Ho Plan Information Medicaid [place] Medigap Part B [id number] Family Dependent [id number] Medicaid Dental O [id number] Medicaid S [id number] S [id number] Managed Care - Community Plan [facility] P [id number] S [id number] [facility] Community Plan Commercial [id number] Self [id number] [facility] I [id number] Self [id number] [facility] Hmo Commercial [id number] Self [id number] [facility] Hmo Commercial [id number] Self [facility] Hmo Commercial [id number] Self [id number] [facility] [id number] SP [id number] Medicaid S [id number] S [id number] Managed Care - Community Plan [facility] P [id number] S [id number] Medicaid S [id number] S [id number] Managed Care - Community Plan [facility] P [id number] S [id number] Medicaid S [id number] S [id number] Managed Care - Community Plan [facility] P [id number] S [id number] Managed Care - [facility] Community Plan P [id number] S [id number] Medicaid S [id number] S [id number] Managed Care - [facility] Community Plan P [id number] S [id number] [employer] COMMUNITY PLAN MCDHMO [id number] SP [id number] [facility](MCAID) O [id number] S [id number] EMEDNY [id number] SP [id number] Sliding Fee Scale O [id number] S [id number] UNHC COMMUNITY PLAN XIX [id number] 18 [id number] PMA MANAGEMENT LEN [id number] SP [id number] PMA MANAGEMENT LEN [id number] SP [id number] [employer] O [id number] S [id number] BC/BS Medicaid Commercial [id number] Self Medicaid S [id number] S [id number] Managed Care - Community Plan [facility] P [id number] S [id number] D Managed Care [facility] O [id number] S [id number] Managed Care BCBS O [id number] S [id number] zzMedicaid FFS O [id number] S [id number] [place] [id number] SP [id number] [place] [id number] SP [id number] [employer] BCBS P [id number] S [id number] [place] [id number] SP [id number] MEDICAID [id number] SP [id number] Problems, Conditions, and Diagnoses Code Display Name Description Problem Type Effective Dates Data Source(s) F41.9 Anxiety disorder, unspecified Unspecified Anxiety Diso rder Condition 11/02/2020 12:00:00 AM EDT [facility] ([facility]) [id number] History of concussion injury of brain Hi story of Concussion Injury of Brain Problem 08/21/2020 12:00:00 AM STU BECKER ([facility]) [id number] Type 2 diabetes mellitus Type 2 Diabetes Mellitus Prob hieu 08/21/2020 12:00:00 AM STU BECKER ([facility]) [id number] 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 Problem 08/21/2020 12:00:00 AM EST EUGENIO ([facility]) [id number] Pneumonia Pneumonia Problem 07/18/2020 12:00:00 AM MARYLIN BECKER ([facility]) [id number] Asthma Asthma Problem 04/30/2020 05:57:56 PM ED Mickey BECKER ([facility]) [id number] Finding by site Finding by Site Problem 12:00:00 AM EDT - 08/21/2020 12:00:00 AM EST EUGENIO ([facility]) [id number] Clinical finding Clinical Finding Problem 019 12:00:00 AM EST - 08/21/2020 12:00:00 AM EST EUGENIO ([facility]) [id number] Dyspnea Dyspnea Problem 06/19/2019 12:0 0:00 AM EST - 08/21/2020 12:00:00 AM EST EUGENIO ([facility]) [id number] Headache disorder Headache Disorder Problem 01/04 12:00:00 AM EDT - 08/21/2020 12:00:00 AM EST EUGENIO ([facility]) [id number] Conjunctival hemorrhage of bilateral eye s Conjunctival Hemorrhage of Bilateral Eyes Problem 08/08/2018 12:00:00 AM ES T - 08/21/2020 12:00:00 AM STU BECKER ([facility]) [id number] Exposure to second hand tobacco smoke Ex posure to Second Hand Tobacco Smoke Problem 02/17/2017 12:00:00 AM EDT - 08/21/2020 12:00:00 AM EST EUGENIO ([facility]) 144298333 Bony swelling of lumbar spine Bony Swelling of Lumbar Spine Problem 04/06/2016 12:00:00 AM EDT - 08/21/2020 12:00:00 AM EST EUGENIO ([facility]) [id number] General finding of observation of patien t General Finding of Observation of Patient Problem 10/31/2015 12:00:00 AM EDT - 08/21/2020 12:00:00 AM STU BECKER ([facility]) 88268169 Hyperglycemia Hyperglycemia Problem 10/31/2015 12 :00:00 AM EDT - 08/21/2020 12:00:00 AM STU BECKER ([facility]) [id number] Pyrexia of unknown origin Pyrexia of Unknown Origin Pr oblem 10/31/2015 12:00:00 AM EDT - 08/21/2020 12:00:00 AM STU BECKER ([facility]) [id number] Disorder of upper respiratory system Dis order of Upper Respiratory System Problem 10/31/2015 12:00:00 AM EDT - 08/21/2020 12:00:00 AM STU BECKER ([facility]) [id number] Pain in left knee Pain in Left Knee Problem 12:00:00 AM EDT - 08/21/2020 12:00:00 AM STU BECKER ([facility]) Surgeries/Procedures Procedure Description Date Indications Data Source(s) Psychiatric Diagnostic Evaluation (Non-Medical) 11/02/2020 12:00:00 AM EDT - 11/02/2020 12:00:00 AM EDT [facility] ([facility]) Psychiatric Diagnostic Evaluation (Non-Medical) 2020 12:00:00 AM EDT [facility] ([facility]) Extended Individual Psychotherapy - 45 min 10/26/2020 12:00:00 AM EDT - 10/26/2020 12:00:00 AM EDT [facility] ([facility]) Extended Individual Psychotherapy - 45 min 12:00:00 AM EDT [facility] ([facility]) Psychiatric Diagnostic Evaluation (Non-Medical) 10/22/2020 12:00:00 AM EDT - 10/22/2020 12:00:00 AM EDT [facility] ([facility]) Psychiatric Diagnostic Evaluation (Non-Medical) 2020 12:00:00 AM EDT [facility] ([facility]) Brief Individual Psychotherapy - 30 min 10/16/2020 12:00:00 AM EDT - 10/16/2020 12:00:00 AM EDT [facility] ([facility]) Brief Individual Psychotherapy - 30 min 10/16/2020 12: 00:00 AM EDT [facility] ([facility]) Spirometry 08/24/2020 12:00:00 AM EST M EDENT ([facility], ) Results ID Date Data Source [id number] 02/15/2021 10:17:00 AM EDT [facility] Name Value Range Interpretation Code Description Data Pilar rce(s) Supporting Document(s) SARS coronavirus 2 RdRp gene [Presence] in Respiratory specimen by JUJU with probe detection Not detected [facility]J This lab was ordered by [facility] and reported by [facility]. ID Date Data Source [id number] 09/25/2020 08:53:00 AM EST MED[facility] ([facility], ) Name Value Range Interpretation Code Description Data Pilar rce(s) Supporting Document(s) FVC-Pred 5.38 L MEDENT ([facility], ) FVC-Pre 3.46 L [facility] ([facility], ) PDFReport Laboratory test result MED[facility] ([facility], ) Fev1-Pred 4.45 L [facility] ([facility], ) FVC-LLN 4.47 L MED[facility] ([facility]) FVC-%Pred-Pre 64 L MEDENT ([facility], ) Fev1-%Pred-Pre 58 L MED[facility] ([facility], ) Fev1-LLN 3.68 L MED[facility] ([facility], ) Fev1-Pre 2.61 L [facility] ([facility]) Fev6-Pre 3.46 L [facility] ([facility]) Fev6-%Pred-Pre 64 L [facility] ([facility], ) Fev6-Pred 5.35 L [facility] ([facility]) Fev6-LLN 4.46 L [facility] ([facility]) Hlk7ngt-Gqz 75 % [facility] ([facility], ) Tkr4lsu-Yxgh 83 % [facility] ([facility], ) Kyl5phu-%Pred-Pre 90 % MED[facility] ([facility]) Rjh6jzt-Aswc 99 % [facility] ([facility]) Uxl3dsg-KES 73 % [facility] ([facility]) Azp7eje-Lda 100 % [facility] ([facility]) Xfz9jul-%Pred-Pre 100 % [facility] ([facility]) FEFMax-Pred 9.97 L/E/sec MEDENT ([facility]) FEFMax-%Pred-Pre 60 L/E/sec [facility] ([facility]) FEFMax-LLN 7.72 L/E/sec [facility] ([facility]) FEFMax-Pre 6.00 L/E/sec [facility] ([facility]) Fql3669-Ujuv 4.63 L/E/sec [facility] ([facility]) Yvc1864-Vha 2.04 L/E/sec [facility] ([facility]) Ktm2833-%Pred-Pre 44 L/E/sec [facility] ([facility]) ExpTime-Pre 6.44 sec [facility] ([facility]) Xor3041-CTB 3.07 L/E/sec [facility] ([facility]) Ook8fom1-Qqcf 84 % [facility] ([facility]) Gky6oet6-Ykz 75 % [facility] ([facility]) Ena0lgq5-COL 75 % [facility] ([facility]) Jcu5zsj2-%Pred-Pre 89 % [facility] ([facility]) ID Date Data Source [id number] 08/24/2020 01:28:00 PM EST MEDENT ([facility]) Name Value Range Interpretation Code Description Data Pilar rce(s) Supporting Document(s) FVC-Pre 2.62 L [facility] ([facility]) PDFReport Laboratory test result [facility] ([facility]) FVC-Pred 5.38 L MED[facility] ([facility], ) FVC-LLN 4.47 L MED[facility] ([facility], ) FVC-%Pred-Pre 48 L MED[facility] ([facility], ) Fev1-Pred 4.45 L MED[facility] ([facility], ) Fev1-LLN 3.68 L MED[facility] ([facility], ) Fev1-Pre 2.05 L MED[facility] ([facility], ) Fev1-%Pred-Pre 46 L MED[facility] ([facility], ) Fev6-Pred 5.35 L MED[facility] ([facility], ) Fev6-%Pred-Pre 48 L [facility] ([facility]) Fev6-Pre 2.62 L [facility] ([facility]) Fev6-LLN 4.46 L [facility] ([facility]) Asw6xju-Cwyk 83 % [facility] ([facility]) Zmp6uyw-Zzs 78 % [facility] ([facility]) Dze4qkj-%Pred-Pre 94 % [facility] ([facility]) Vdb2nve-Ontu 99 % [facility] ([facility]) Ezx6nnq-EMZ 73 % [facility] ([facility]) Iue4obk-%Pred-Pre 100 % [facility] ([facility]) FEFMax-Pred 9.97 L/E/sec MED[facility] ([facility], ) Bbh7qdz-Yit 100 % [facility] ([facility]) FEFMax-Pre 4.85 L/E/sec [facility] ([facility]) FEFMax-%Pred-Pre 48 L/E/sec MED[facility] ([facility]) FEFMax-LLN 7.72 L/E/sec [facility] ([facility]) Xwm0244-Otu 1.79 L/E/sec [facility] ([facility]) Yrk2543-%Pred-Pre 38 L/E/sec MED[facility] ([facility] ) Djo1723-Znpk 4.63 L/E/sec MED[facility] ([facility], ) Mzu2bhv7-Tlxv 84 % [facility] ([facility]) ExpTime-Pre 6.08 sec MED[facility] ([facility]) Qoa6023-TVD 3.07 L/E/sec MED[facility] ([facility], ) Icc4mhq7-%Pred-Pre 93 % MEDENT ([facility], ) Txh6clf2-Uif 78 % MED[facility] ([facility], ) Zab5fck6-YYI 75 % [facility] ([facility]) ID Date Data Source [id number] 08/06/2020 12:06:00 PM EST EUGENIO ([facility]) Name Value Range Interpretation Code Description Data Pilar rce(s) Supporting Document(s) bedside glucose 173 mg/dL 70-105 Above high normal Bedside Gluco se MELBETA ([facility]) ID Date Data Source [id number] 08/06/2020 06:54:00 AM EST EUGENIO ([facility]) Name Value Range Interpretation Code Description Data Pilar rce(s) Supporting Document(s) magnesium level 2.1 mg/dL 1.8-2.4 Magnesium Level [facility] ([facility]) ID Date Data Source [id number] 08/06/2020 06:54:00 AM EST EUGENIO ([facility]) Name Value Range Interpretation Code Description Data Pilar rce(s) Supporting Document(s) glucose, fasting 82 mg/dL 70-100 Glucose, Fasting AT [facility] ([facility]) blood urea nitrogen 20 mg/dL 7-18 Above high normal Blood Ure a Nitrogen EUGENIO ([facility]) creatinine for GFR 0.72 mg/dL 0.70-1.30 Creatinine for GF R MELBETA ([facility]) glomerular filtration rate > 60.0 >60 Glomerula r Filtration Rate EUGENIO ([facility]) sodium level 141 mEq/L 136-145 Sodium Level EUGENIO ([facility]) potassium serum 3.9 mEq/L 3.5-5.1 Potassium Serum ATHE ([facility]) chloride level 102 mEq/L 98-107 Chloride Level EUGENIO ([facility]) carbon dioxide level 29 mEq/L 21-32 Carbon Dioxide Level EUGENIO ([facility]) anion gap 10 mEq/L 8-16 Anion Gap EUGENIO ([facility]) calcium level 8.7 mg/dL 8.5-10.1 Calcium Level EUGENIO ( [facility]) AST/SGOT 49 U/L 7-37 Above high normal AST/SGOT EUGENIO ([facility]) ALT/SGPT 182 U/L 12-78 Above high normal ALT/SGPT EUGENIO ([facility]) alkaline phosphatase 52 U/L 45-117 Alkaline Phosph atase EUGENIO ([facility]) bilirubin,total 0.3 mg/dL 0.2-1.0 Bilirubin,total ATHE ([facility]) total protein 6.0 gm/dL 6.4-8.2 Below low normal Total Protein AT [facility]) albumin/globulin ratio Albumin/globu sandy Ratio EUGENIO ([facility]) ID Date Data Source [id number] 08/06/2020 06:54:00 AM EST EUGENIO ([facility]) Name Value Range Interpretation Code Description Data Pilar rce(s) Supporting Document(s) white blood count 13.3 10 4.0-10.0 Above high normal White Blood Count EUGENIO ([facility]) red blood count 4.75 10 4.30-6.10 Red Blood Count ATHE ([facility]) hemoglobin 13.3 g/dL 13.5-17.5 Below low normal Hemoglobin EUGENIO ( [facility]) hematocrit 40.1 % 42.0-52.0 Below low normal Hematocrit EUGENIO ( [facility]) mean corpuscular volume 84.4 fL 80.0-96.0 Mean Corpusc ular Volume EUGENIO ([facility]) mean corpuscular hemoglobin 28.0 pg 27.0-33.0 Mean Cor puscular Hemoglobin EUGENIO ([facility]) mean corpuscular HGB conc 33.2 g/dL 32.0-36.5 Mean Corpu scular HGB Conc EUGENIO ([facility]) red cell distribution width 12.9 % 11.5-14.5 Red Cell Distribution Width EUGENIO ([facility]) platelet count, automated 282 10 150-450 Platelet C ount, Automated EUGENIO ([facility]) neutrophils % 62.4 % 36.0-66.0 Neutrophils % EUGENIO ( [facility]) lymph % 25.8 % 24.0-44.0 Lymph % MEL[place]ETA ([facility]) mono % 8.5 % 0.0-5.0 Above high normal [place] % [place] ([facility]) eos % 0.6 % 0.0-3.0 Eos % EUGENIO ([facility]) baso % 0.2 % 0.0-1.0 Baso % [place]A ([facility]) immature granulocyte % 2.5 % 0-3.0 Immature Gran ulocyte % [place] ([facility]) nucleated red blood cell % 0.0 % 0-0 Nucleated Red Blood Cell % [place] ([facility]) neutrophils # 8.3 10 1.5-8.5 Neutrophils # EUGENIO ( [facility]) lymph # 3.4 10 1.5-5.0 Lymph # EUGENIO ([facility]) mono # 1.1 10 0.0-0.8 Above high normal [place] # EUGENIO ([facility]) eos # 0.1 10 0.0-0.5 Eos # EUGENIO ([facility]) baso # 0.0 10 0.0-0.2 Baso # EUGENIO ([facility]) ID Date Data Source [id number] 08/06/2020 05:40:00 AM EST MELBETA ([facility]) Name Value Range Interpretation Code Description Data Pilar rce(s) Supporting Document(s) bedside glucose 110 mg/dL 70-105 Above high normal Bedside Gluco se EUGENIO ([facility]) ID Date Data Source [id number] 08/05/2020 08:27:00 PM EST EUGENIO ([facility]) Name Value Range Interpretation Code Description Data Pilar rce(s) Supporting Document(s) bedside glucose 317 mg/dL 70-105 Above high normal Bedside Gluco se EUGENIO ([facility]) ID Date Data Source [id number] 08/05/2020 05:00:00 PM EST EUGENIO ([facility]) Name Value Range Interpretation Code Description Data Pliar rce(s) Supporting Document(s) bedside glucose 283 mg/dL 70-105 Above high normal Bedside Gluco se EUGENIO ([facility]) ID Date Data Source [id number] 08/05/2020 11:34:00 AM EST EUGENIO ([facility]) Name Value Range Interpretation Code Description Data Pilar rce(s) Supporting Document(s) bedside glucose 237 mg/dL 70-105 Above high normal Bedside Gluco se EUGENIO ([facility]) ID Date Data Source [id number] 08/05/2020 05:43:00 AM EST EUGENIO ([facility]) Name Value Range Interpretation Code Description Data Pilar rce(s) Supporting Document(s) magnesium level 2.3 mg/dL 1.8-2.4 Magnesium Level ATHE ([facility]) ID Date Data Source [id number] 08/05/2020 05:43:00 AM EST EUGENIO [facility]) Name Value Range Interpretation Code Description Data Pilar rce(s) Supporting Document(s) glucose, fasting 177 mg/dL 70-100 Above high normal Glucose, Fas ting EUGENIO ([facility]) blood urea nitrogen 18 mg/dL 7-18 Blood Urea Nitro gen EUGENIO ([facility]) creatinine for GFR 0.76 mg/dL 0.70-1.30 Creatinine for GF R EUGENIO ([facility]) glomerular filtration rate > 60.0 >60 Glomerula r Filtration Rate EUGENIO ([facility]) sodium level 140 mEq/L 136-145 Sodium Level EUGENIO ([facility]) potassium serum 4.6 mEq/L 3.5-5.1 Potassium Serum ATHE NA ([facility]) chloride level 102 mEq/L 98-107 Chloride Level EUGENIO ([facility]) carbon dioxide level 31 mEq/L 21-32 Carbon Dioxide Level EUGENIO ([facility]) anion gap 7 mEq/L 8-16 Below low normal Anion Gap EUGENIO ( [facility]) calcium level 9.3 mg/dL 8.5-10.1 Calcium Level EUGENIO ( [facility]) AST/SGOT 34 U/L 7-37 AST/SGOT EU[facility]IO ([facility]) ALT/SGPT 194 U/L 12-78 Above high normal ALT/SGPT EUGENIO ([facility]) alkaline phosphatase 57 U/L 45-117 Alkaline Phosph atase EUGENIO ([facility]) bilirubin,total 0.5 mg/dL 0.2-1.0 Bilirubin,total ATHE ([facility]) total protein 6.8 gm/dL 6.4-8.2 Total Protein EUGENIO ( [facility]) albumin 3.2 gm/dL 3.2-5.2 Albumin EUGENIO ([facility]) albumin/globulin ratio Albumin/globu sandy Ratio EUGENIO ([facility]) ID Date Data Source [id number] 08/05/2020 05:43:00 AM EST EUGENIO ([facility]) Name Value Range Interpretation Code Description Data Pilar rce(s) Supporting Document(s) white blood count 17.4 10 4.0-10.0 Above high normal White Blood Count EUGENIO ([facility]) red blood count 4.92 10 4.30-6.10 Red Blood Count ATHE NA ([facility]) hemoglobin 13.6 g/dL 13.5-17.5 Hemoglobin EUGENIO ([facility]) hematocrit 42.0 % 42.0-52.0 Hematocrit EUGENIO ([facility]) mean corpuscular volume 85.4 fL 80.0-96.0 Mean Corpusc ular Volume EUGENIO ([facility]) mean corpuscular hemoglobin 27.6 pg 27.0-33.0 Mean Cor puscular Hemoglobin EUGENIO ([facility]) mean corpuscular HGB conc 32.4 g/dL 32.0-36.5 Mean Corpu scular HGB Conc EUGENIO ([facility]) red cell distribution width 12.6 % 11.5-14.5 Red Cell Distribution Width EUGENIO ([facility]) platelet count, automated 323 10 150-450 Platelet C ount, Automated EUGENIO ([facility]) neutrophils % 84.8 % 36.0-66.0 Above high normal Neutrophils % [facility] ([facility]) lymph % 7.9 % 24.0-44.0 Below low normal Lymph % EUGENIO ( [facility]) mono % 5.5 % 0.0-5.0 Above high normal [place] % EUGENIO ([facility]) eos % 0.0 % 0.0-3.0 Eos % EUGENIO ([facility]) baso % 0.1 % 0.0-1.0 Baso % EUGENIO ([facility]) immature granulocyte % 1.7 % 0-3.0 Immature Gran ulocyte % EUGENIO ([facility]) nucleated red blood cell % 0.0 % 0-0 Nucleated Red Blood Cell % EUGENIO ([facility]) neutrophils # 14.8 10 1.5-8.5 Above high normal Neutrophils # A THENA ([facility]) lymph # 1.4 10 1.5-5.0 Below low normal Lymph # EUGENIO ( [facility]) mono # 1.0 10 0.0-0.8 Above high normal [place] # EUGENIO ([facility]) eos # 0.0 10 0.0-0.5 Eos # EUGENIO ([facility]) baso # 0.0 10 0.0-0.2 Baso # EUGENIO ([facility]) ID Date Data Source [id number] 08/04/2020 08:34:00 PM EST EUGENIO ([facility]) Name Value Range Interpretation Code Description Data Pilar rce(s) Supporting Document(s) bedside glucose 418 mg/dL 70-105 Above high normal Bedside Gluco se EUGENIO ([facility]) ID Date Data Source [id number] 08/04/2020 04:06:00 PM EST EUGENIO ([facility]) Name Value Range Interpretation Code Description Data Pilar rce(s) Supporting Document(s) bedside glucose 386 mg/dL 70-105 Above high normal Bedside Gluco se EUGENIO ([facility]) ID Date Data Source [id number] 08/04/2020 11:21:00 AM EST EUGENIO ([facility]) Name Value Range Interpretation Code Description Data Pilar rce(s) Supporting Document(s) bedside glucose 339 mg/dL 70-105 Above high normal Bedside Gluco se EUGENIO ([facility]) ID Date Data Source [id number] 08/04/2020 05:27:00 AM EST EUGENIO ([facility]) Name Value Range Interpretation Code Description Data Pilar rce(s) Supporting Document(s) magnesium level 2.2 mg/dL 1.8-2.4 Magnesium Level ATHE NA ([facility]) ID Date Data Source [id number] 08/04/2020 05:27:00 AM EST EUGENIO ([facility]) Name Value Range Interpretation Code Description Data Pilar rce(s) Supporting Document(s) glucose, fasting 191 mg/dL 70-100 Above high normal Glucose, Fas ting EUGENIO ([facility]) blood urea nitrogen 19 mg/dL 7-18 Above high normal Blood Ure a Nitrogen EUGENIO ([facility]) creatinine for GFR 0.73 mg/dL 0.70-1.30 Creatinine for GF R EUGENIO ([facility]) glomerular filtration rate > 60.0 >60 Glomerula r Filtration Rate EUGENIO ([facility]) sodium level 136 mEq/L 136-145 Sodium Level EUGENIO ([facility] potassium serum 4.2 mEq/L 3.5-5.1 Potassium Serum ATHE NA ([facility]) chloride level 102 mEq/L 98-107 Chloride Level [place] ([facility]) carbon dioxide level 30 mEq/L 21-32 Carbon Dioxide Level EUGENIO ([facility]) anion gap 4 mEq/L 8-16 Below low normal Anion Gap EUGENIO ( [facility]) calcium level 8.9 mg/dL 8.5-10.1 Calcium Level EUGENIO ( [facility]) AST/SGOT 37 U/L 7-37 AST/SGOT EU[facility]IO ([facility]) ALT/SGPT 195 U/L 12-78 Above high normal ALT/SGPT EUGENIO ([facility]) alkaline phosphatase 52 U/L 45-117 Alkaline Phosph atase EUGENIO ([facility]) bilirubin,total 0.4 mg/dL 0.2-1.0 Bilirubin,total ATHE ([facility]) total protein 6.8 gm/dL 6.4-8.2 Total Protein EUGENIO ( [facility]) albumin 2.9 gm/dL 3.2-5.2 Below low normal Albumin EUGEINO ( [facility]) albumin/globulin ratio Albumin/globu sandy Ratio [place] ([facility]) ID Date Data Source [id number] 08/04/2020 05:27:00 AM EST [place] ([facility]) Name Value Range Interpretation Code Description Data Pilar rce(s) Supporting Document(s) white blood count 18.5 10 4.0-10.0 Above high normal White Blood Count EUGENIO ([facility]) red blood count 4.69 10 4.30-6.10 Red Blood Count ATHE NA ([facility]) hemoglobin 12.8 g/dL 13.5-17.5 Below low normal Hemoglobin EUGENIO ( [facility]) hematocrit 39.1 % 42.0-52.0 Below low normal Hematocrit EUGENIO ( [facility]) mean corpuscular volume 83.4 fL 80.0-96.0 Mean Corpusc ular Volume EUGENIO ([facility]) mean corpuscular hemoglobin 27.3 pg 27.0-33.0 Mean Cor puscular Hemoglobin EUGENIO ([facility]) mean corpuscular HGB conc 32.7 g/dL 32.0-36.5 Mean Corpu scular HGB Conc EUGENIO ([facility]) red cell distribution width 12.4 % 11.5-14.5 Red Cell Distribution Width EUGENIO ([facility]) platelet count, automated 332 10 150-450 Platelet C ount, Automated EUGENIO ([facility]) neutrophils % 86.6 % 36.0-66.0 Above high normal Neutrophils % [facility] lymph % 6.8 % 24.0-44.0 Below low normal Lymph % EUGENIO ( [facility]) mono % 5.1 % 0.0-5.0 Above high normal [place] % EUGENIO ([facility]) eos % 0.0 % 0.0-3.0 Eos % EUGENIO ([facility]) baso % 0.2 % 0.0-1.0 Baso % EUGENIO ([facility]) immature granulocyte % 1.3 % 0-3.0 Immature Gran ulocyte % EUGENIO ([facility]) nucleated red blood cell % 0.0 % 0-0 Nucleated Red Blood Cell % EUGENIO ([facility]) neutrophils # 16.0 10 1.5-8.5 Above high normal Neutrophils # A THENA ([facility]) lymph # 1.3 10 1.5-5.0 Below low normal Lymph # EUGENIO ( [facility]) mono # 0.9 10 0.0-0.8 Above high normal [place] # EUGENIO ([facility]) eos # 0.0 10 0.0-0.5 Eos # EUGENIO ([facility]) baso # 0.0 10 0.0-0.2 Baso # EUGENIO ([facility]) ID Date Data Source [id number] 08/03/2020 08:04:00 PM EST EUGENIO ([facility]) Name Value Range Interpretation Code Description Data Pilar rce(s) Supporting Document(s) bedside glucose 401 mg/dL 70-105 Above high normal Bedside Gluco se EUGENIO ([facility]) ID Date Data Source [id number] 08/03/2020 04:57:00 PM EST EUGENIO ([facility]) Name Value Range Interpretation Code Description Data Pilar rce(s) Supporting Document(s) bedside glucose 353 mg/dL 70-105 Above high normal Bedside Gluco se EUGENIO ([facility]) ID Date Data Source [id number] 08/03/2020 11:24:00 AM EST EUGENIO ([facility]) Name Value Range Interpretation Code Description Data Pilar rce(s) Supporting Document(s) bedside glucose 359 mg/dL 70-105 Above high normal Bedside Gluco se EUGENIO ([facility]) ID Date Data Source [id number] 08/03/2020 06:45:00 AM EST EUGENIO ([facility]) Name Value Range Interpretation Code Description Data Pilar rce(s) Supporting Document(s) bedside glucose 310 mg/dL 70-105 Above high normal Bedside Gluco se EUGENIO ([facility]) ID Date Data Source [id number] 08/03/2020 04:44:00 AM EST EUGENIO ([facility]) Name Value Range Interpretation Code Description Data Pilar rce(s) Supporting Document(s) magnesium level 2.5 mg/dL 1.8-2.4 Above high normal Magnesium Lev el EUGENIO ([facility]) ID Date Data Source [id number] 08/03/2020 04:44:00 AM EST [place] ([facility]) Name Value Range Interpretation Code Description Data Pilar rce(s) Supporting Document(s) glucose, fasting 299 mg/dL 70-100 Above high normal Glucose, Fas ting [place] ([facility]) blood urea nitrogen 17 mg/dL 7-18 Blood Urea Nitro gen [place]GENIO ([facility]) creatinine for GFR 0.84 mg/dL 0.70-1.30 Creatinine for GF R [place] ([facility]) glomerular filtration rate > 60.0 >60 Glomerula r Filtration Rate [place] ([facility]) sodium level 134 mEq/L 136-145 Below low normal Sodium Level ATHE ([facility]) potassium serum 4.3 mEq/L 3.5-5.1 Potassium Serum ATHE ([facility]) chloride level 100 mEq/L 98-107 Chloride Level EUGENIO ([facility]) carbon dioxide level 27 mEq/L 21-32 Carbon Dioxide Level [place] ([facility]) anion gap 7 mEq/L 8-16 Below low normal Anion Gap [place] ( [facility]) calcium level 9.1 mg/dL 8.5-10.1 Calcium Level [place] ( [facility]) AST/SGOT 44 U/L 7-37 Above high normal AST/SGOT EUGENIO ([facility]) ALT/SGPT 214 U/L 12-78 Above high normal ALT/SGPT EUGENIO ([facility]) alkaline phosphatase 60 U/L 45-117 Alkaline Phosph atase EUGENIO ([facility]) bilirubin,total 0.5 mg/dL 0.2-1.0 Bilirubin,total ATHE ([facility]) total protein 6.6 gm/dL 6.4-8.2 Total Protein EUGENIO ( [facility]) albumin 2.9 gm/dL 3.2-5.2 Below low normal Albumin [place] ( [facility]) albumin/globulin ratio Albumin/globu sandy Ratio EUGENIO ([facility]) ID Date Data Source [id number] 08/03/2020 04:44:00 AM EST EUGENIO ([facility]) Name Value Range Interpretation Code Description Data Pilar rce(s) Supporting Document(s) white blood count 19.1 10 4.0-10.0 Above high normal White Blood Count EUGENIO ([facility]) red blood count 4.68 10 4.30-6.10 Red Blood Count ATHE NA ([facility]) hemoglobin 13.1 g/dL 13.5-17.5 Below low normal Hemoglobin EUGENIO ( [facility]) hematocrit 39.4 % 42.0-52.0 Below low normal Hematocrit EUGENIO ( [facility]) mean corpuscular volume 84.2 fL 80.0-96.0 Mean Corpusc ular Volume EUGENIO ([facility]) mean corpuscular hemoglobin 28.0 pg 27.0-33.0 Mean Cor puscular Hemoglobin EUGENIO ([facility]) mean corpuscular HGB conc 33.2 g/dL 32.0-36.5 Mean Corpu scular HGB Conc EUGENIO ([facility]) red cell distribution width 12.0 % 11.5-14.5 Red Cell Distribution Width EUGENIO ([facility]) platelet count, automated 344 10 150-450 Platelet C ount, Automated EUGENIO ([facility]) neutrophils % 88.9 % 36.0-66.0 Above high normal Neutrophils % A THENA ([facility]) lymph % 6.3 % 24.0-44.0 Below low normal Lymph % EUGENIO ( [facility]) mono % 4.0 % 0.0-5.0 [place] % EUGENIO ([facility]) eos % 0.0 % 0.0-3.0 Eos % EUGENIO ([facility]) baso % 0.1 % 0.0-1.0 Baso % EUGENIO ([facility]) immature granulocyte % 0.7 % 0-3.0 Immature Gran ulocyte % EUGENIO ([facility]) nucleated red blood cell % 0.0 % 0-0 Nucleated Red Blood Cell % EUGENIO ([facility]) neutrophils # 17.0 10 1.5-8.5 Above high normal Neutrophils # A THENA ([facility]) lymph # 1.2 10 1.5-5.0 Below low normal Lymph # EUGENIO ( [facility]) mono # 0.8 10 0.0-0.8 [place] # EUGENIO ([facility]) eos # 0.0 10 0.0-0.5 Eos # EUGENIO ([facility]) baso # 0.0 10 0.0-0.2 Baso # EUGENIO ([facility]) ID Date Data Source [id number] 08/02/2020 07:40:00 PM EST EUGENIO ([facility]) Name Value Range Interpretation Code Description Data Pilar rce(s) Supporting Document(s) bedside glucose 439 mg/dL 70-105 Above high normal Bedside Gluco se EUGENIO ([facility]) ID Date Data Source [id number] 08/02/2020 04:44:00 PM EST EUGENIO ([facility]) Name Value Range Interpretation Code Description Data Pilar rce(s) Supporting Document(s) bedside glucose 382 mg/dL 70-105 Above high normal Bedside Gluco se EUGENIO ([facility]) ID Date Data Source [id number] 08/02/2020 12:10:00 PM EST EUGENIO ([facility]) Name Value Range Interpretation Code Description Data Pilar rce(s) Supporting Document(s) bedside glucose 329 mg/dL 70-105 Above high normal Bedside Gluco se EUGENIO ([facility]) ID Date Data Source [id number] 08/02/2020 05:55:00 AM EST EUGENIO ([facility]) Name Value Range Interpretation Code Description Data Pilar rce(s) Supporting Document(s) magnesium level 2.4 mg/dL 1.8-2.4 Magnesium Level ATHE ([facility]) ID Date Data Source [id number] 08/02/2020 05:55:00 AM EST EUGENIO ([facility]) Name Value Range Interpretation Code Description Data Pilar rce(s) Supporting Document(s) glucose, fasting 208 mg/dL 70-100 Above high normal Glucose, Fas ting EUGENIO ([facility]) blood urea nitrogen 17 mg/dL 7-18 Blood Urea Nitro gen [place] ([facility]) creatinine for GFR 0.84 mg/dL 0.70-1.30 Creatinine for GF R [place] ([facility]) glomerular filtration rate > 60.0 >60 Glomerula r Filtration Rate EUGENIO ([facility]) sodium level 134 mEq/L 136-145 Below low normal Sodium Level ATHE ([facility]) potassium serum 4.1 mEq/L 3.5-5.1 Potassium Serum ATHE ([facility]) chloride level 98 mEq/L 98-107 Chloride Level EUGENIO ([facility]) carbon dioxide level 30 mEq/L 21-32 Carbon Dioxide Level EUGENIO ([facility]) anion gap 6 mEq/L 8-16 Below low normal Anion Gap EUGENIO ( [facility]) calcium level 9.2 mg/dL 8.5-10.1 Calcium Level EUGENIO ( [facility]) AST/SGOT 46 U/L 7-37 Above high normal AST/SGOT EU[place]IO ([facility]) ALT/SGPT 180 U/L 12-78 Above high normal ALT/SGPT EUGENIO ([facility]) alkaline phosphatase 60 U/L 45-117 Alkaline Phosph atase EUGENIO ([facility]) bilirubin,total 0.8 mg/dL 0.2-1.0 Bilirubin,total ATHE ([facility]) total protein 6.7 gm/dL 6.4-8.2 Total Protein EUGENIO ( [facility]) albumin 2.9 gm/dL 3.2-5.2 Below low normal Albumin EUGENIO ( [facility]) albumin/globulin ratio Albumin/globu sandy Ratio EUGENIO ([facility]) ID Date Data Source [id number] 08/02/2020 05:55:00 AM EST EUGENIO ([facility]) Name Value Range Interpretation Code Description Data Pilar rce(s) Supporting Document(s) white blood count 19.1 10 4.0-10.0 Above high normal White Blood Count EUGENIO ([facility]) red blood count 4.70 10 4.30-6.10 Red Blood Count ATHE ([facility]) hemoglobin 13.1 g/dL 13.5-17.5 Below low normal Hemoglobin EUGENIO ( [facility]) hematocrit 39.8 % 42.0-52.0 Below low normal Hematocrit EUGENIO ( [facility]) mean corpuscular volume 84.7 fL 80.0-96.0 Mean Corpusc ular Volume EUGENIO ([facility]) mean corpuscular hemoglobin 27.9 pg 27.0-33.0 Mean Cor puscular Hemoglobin EUGENIO ([facility]) mean corpuscular HGB conc 32.9 g/dL 32.0-36.5 Mean Corpu scular HGB Conc EUGENIO ([facility]) red cell distribution width 11.8 % 11.5-14.5 Red Cell Distribution Width EUGENIO ([facility]) platelet count, automated 347 10 150-450 Platelet C ount, Automated EUGENIO ([facility]) neutrophils % 84.4 % 36.0-66.0 Above high normal Neutrophils % A THENA ([facility]) lymph % 8.6 % 24.0-44.0 Below low normal Lymph % EUGENIO ( [facility]) mono % 6.1 % 0.0-5.0 Above high normal [place] % EUGENIO ([facility]) eos % 0.0 % 0.0-3.0 Eos % EUGENIO ([facility]) baso % 0.1 % 0.0-1.0 Baso % EUGENIO ([facility]) immature granulocyte % 0.8 % 0-3.0 Immature Gran ulocyte % EUGENIO ([facility]) nucleated red blood cell % 0.0 % 0-0 Nucleated Red Blood Cell % EUGENIO ([facility]) neutrophils # 16.1 10 1.5-8.5 Above high normal Neutrophils # A THENA ([facility]) lymph # 1.7 10 1.5-5.0 Lymph # EUGENIO ([facility]) mono # 1.2 10 0.0-0.8 Above high normal [place] # EUGENIO ([facility]) eos # 0.0 10 0.0-0.5 Eos # EUGENIO ([facility]) baso # 0.0 10 0.0-0.2 Baso # EUGENIO ([facility]) ID Date Data Source [id number] 08/01/2020 09:23:00 PM EST EUGENIO ([facility]) Name Value Range Interpretation Code Description Data Pilar rce(s) Supporting Document(s) bedside glucose 461 mg/dL 70-105 Above high normal Bedside Gluco se EUGENIO ([facility]) ID Date Data Source [id number] 08/01/2020 05:27:00 PM EST EUGENIO ([facility]) Name Value Range Interpretation Code Description Data Pilar rce(s) Supporting Document(s) bedside glucose 369 mg/dL 70-105 Above high normal Bedside Gluco se EUGENIO ([facility]) ID Date Data Source [id number] 08/01/2020 11:38:00 AM EST EUGENIO ([facility]) Name Value Range Interpretation Code Description Data Pilar rce(s) Supporting Document(s) bedside glucose 428 mg/dL 70-105 Above high normal Bedside Gluco se EUGENIO ([facility]) ID Date Data Source [id number] 08/01/2020 09:08:00 AM EST EUGENIO ([facility]) Name Value Range Interpretation Code Description Data Pilar rce(s) Supporting Document(s) magnesium level 2.6 mg/dL 1.8-2.4 Above high normal Magnesium Lev mary [place] ([facility]) ID Date Data Source [id number] 08/01/2020 09:08:00 AM STU [facility] ([facility]) Name Value Range Interpretation Code Description Data Pilar rce(s) Supporting Document(s) glucose, fasting 301 mg/dL 70-100 Above high normal Glucose, Fas ting EUGENIO ([facility]) blood urea nitrogen 21 mg/dL 7-18 Above high normal Blood Ure a Nitrogen [place] ([facility]) creatinine for GFR 0.91 mg/dL 0.70-1.30 Creatinine for GF R [place] ([facility]) glomerular filtration rate > 60.0 >60 Glomerula r Filtration Rate EUGENIO ([facility]) sodium level 134 mEq/L 136-145 Below low normal Sodium Level ATHE ([facility]) potassium serum 4.9 mEq/L 3.5-5.1 Potassium Serum ATHE NA ([facility]) chloride level 97 mEq/L 98-107 Below low normal Chloride Level EUGENIO ([facility]) carbon dioxide level 28 mEq/L 21-32 Carbon Dioxide Level [place] ([facility]) anion gap 9 mEq/L 8-16 Anion Gap EUGENIO ([facility]) calcium level 9.0 mg/dL 8.5-10.1 Calcium Level [place] ( [facility]) AST/SGOT 41 U/L 7-37 Above high normal AST/SGOT [facility]IO ([facility]) ALT/SGPT 129 U/L 12-78 Above high normal ALT/SGPT [facility]IO ([facility]) alkaline phosphatase 64 U/L 45-117 Alkaline Phosph atase EUGENIO ([facility]) bilirubin,total 0.6 mg/dL 0.2-1.0 Bilirubin,total ATHE ([facility]) total protein 7.1 gm/dL 6.4-8.2 Total Protein [place] ( [facility]) albumin 3.0 gm/dL 3.2-5.2 Below low normal Albumin EUGENIO ( [facility]) albumin/globulin ratio Albumin/globu sandy Ratio EUGENIO ([facility]) ID Date Data Source [id number] 08/01/2020 09:08:00 AM EST EUGENIO ([facility]) Name Value Range Interpretation Code Description Data Pilar rce(s) Supporting Document(s) white blood count 15.9 10 4.0-10.0 Above high normal White Blood Count EUGENIO ([facility]) red blood count 4.70 10 4.30-6.10 Red Blood Count ATHE ([facility]) hemoglobin 13.1 g/dL 13.5-17.5 Below low normal Hemoglobin EUGENIO ( [facility]) hematocrit 39.3 % 42.0-52.0 Below low normal Hematocrit EUGENIO ( [facility]) mean corpuscular volume 83.6 fL 80.0-96.0 Mean Corpusc ular Volume EUGENIO ([facility]) mean corpuscular hemoglobin 27.9 pg 27.0-33.0 Mean Cor puscular Hemoglobin EUGENIO ([facility]) mean corpuscular HGB conc 33.3 g/dL 32.0-36.5 Mean Corpu scular HGB Conc EUGENIO ([facility]) red cell distribution width 12.1 % 11.5-14.5 Red Cell Distribution Width EUGENIO ([facility]) platelet count, automated 375 10 150-450 Platelet C ount, Automated EUGENIO ([facility]) neutrophils % 84.3 % 36.0-66.0 Above high normal Neutrophils % A THENA ([facility]) lymph % 9.6 % 24.0-44.0 Below low normal Lymph % EUGENIO ( [facility]) mono % 5.0 % 0.0-5.0 [place] % EUGENIO ([facility]) eos % 0.0 % 0.0-3.0 Eos % EUGENIO ([facility]) baso % 0.1 % 0.0-1.0 Baso % EUGENIO ([facility]) immature granulocyte % 1.0 % 0-3.0 Immature Gran ulocyte % EUGENIO ([facility]) nucleated red blood cell % 0.0 % 0-0 Nucleated Red Blood Cell % EUGENIO ([facility]) neutrophils # 13.4 10 1.5-8.5 Above high normal Neutrophils # A THENA ([facility]) lymph # 1.5 10 1.5-5.0 Lymph # EUGENIO ([facility]) mono # 0.8 10 0.0-0.8 [place] # EUGENIO ([facility]) eos # 0.0 10 0.0-0.5 Eos # EUGENIO ([facility]) baso # 0.0 10 0.0-0.2 Baso # EUGENIO ([facility]) ID Date Data Source [id number] 08/01/2020 07:44:00 AM EST EUGENIO ([facility]) Name Value Range Interpretation Code Description Data Pilar rce(s) Supporting Document(s) bedside glucose 309 mg/dL 70-105 Above high normal Bedside Gluco se EUGENIO ([facility]) ID Date Data Source [id number] 07/31/2020 08:23:00 PM EST EUGENIO ([facility]) Name Value Range Interpretation Code Description Data Pilar rce(s) Supporting Document(s) bedside glucose 429 mg/dL 70-105 Above high normal Bedside Gluco se EUGENIO ([facility]) ID Date Data Source [id number] 07/31/2020 04:49:00 PM EST EUGENIO ([facility]) Name Value Range Interpretation Code Description Data Pilar rce(s) Supporting Document(s) bedside glucose 390 mg/dL 70-105 Above high normal Bedside Gluco se EUGENIO ([facility]) ID Date Data Source [id number] 07/31/2020 11:35:00 AM EST EUGENIO ([facility]) Name Value Range Interpretation Code Description Data Pilar rce(s) Supporting Document(s) bedside glucose 366 mg/dL 70-105 Above high normal Bedside Gluco se EUGENIO ([facility]) ID Date Data Source [id number] 07/31/2020 04:56:00 AM EST EUGENIO ([facility]) Name Value Range Interpretation Code Description Data Pilar rce(s) Supporting Document(s) procalcitonin Procalcitonin EUGENIO ([facility]) ID Date Data Source [id number] 07/31/2020 04:56:00 AM EST EUGENIO ([facility]) Name Value Range Interpretation Code Description Data Pilar rce(s) Supporting Document(s) C reactive protein quantitativ 2.38 mg/dL 0.00-0.30 Above high normal C Reactive Protein Quantitativ EGUENIO ([facility]) ID Date Data Source [id number] 07/31/2020 04:56:00 AM EST EUGENIO ([facility]) Name Value Range Interpretation Code Description Data Pilar rce(s) Supporting Document(s) magnesium level 2.5 mg/dL 1.8-2.4 Above high normal Magnesium Lev el EUGENIO ([facility]) ID Date Data Source [id number] 07/31/2020 04:56:00 AM EST EUGENIO ([facility]) Name Value Range Interpretation Code Description Data Pilar rce(s) Supporting Document(s) glucose, fasting 321 mg/dL 70-100 Above high normal Glucose, Fas ting EUGENIO ([facility]) blood urea nitrogen 22 mg/dL 7-18 Above high normal Blood Ure a Nitrogen [place] ([facility]) creatinine for GFR 0.88 mg/dL 0.70-1.30 Creatinine for GF R EUGENIO ([facility]) glomerular filtration rate > 60.0 >60 Glomerula r Filtration Rate EUGENIO ([facility]) sodium level 134 mEq/L 136-145 Below low normal Sodium Level ATHE NA ([facility]) potassium serum 4.6 mEq/L 3.5-5.1 Potassium Serum ATHE NA ([facility]) chloride level 100 mEq/L 98-107 Chloride Level EUGENIO ([facility]) carbon dioxide level 28 mEq/L 21-32 Carbon Dioxide Level EUGENIO ([facility]) anion gap 6 mEq/L 8-16 Below low normal Anion Gap EUGENIO ( [facility]) calcium level 9.0 mg/dL 8.5-10.1 Calcium Level EUGENIO ( [facility]) ID Date Data Source [id number] 07/31/2020 04:56:00 AM EST EUGENIO ([facility]) Name Value Range Interpretation Code Description Data Pilar rce(s) Supporting Document(s) erythrocyte sedimentation rate 56 mm/HR 0-15 Above high normal Erythrocyte Sedimentation Rate EUGENIO ([facility]) ID Date Data Source [id number] 07/31/2020 04:56:00 AM EST EUGENIO ([facility]) Name Value Range Interpretation Code Description Data Pilar rce(s) Supporting Document(s) white blood count 16.2 10 4.0-10.0 Above high normal White Blood Count EUGENIO ([facility]) red blood count 4.44 10 4.30-6.10 Red Blood Count ATHE NA ([facility]) hemoglobin 12.3 g/dL 13.5-17.5 Below low normal Hemoglobin EUGENIO ( [facility]) hematocrit 38.0 % 42.0-52.0 Below low normal Hematocrit EUGENIO ( [facility]) mean corpuscular volume 85.6 fL 80.0-96.0 Mean Corpusc ular Volume EUGENIO ([facility]) mean corpuscular hemoglobin 27.7 pg 27.0-33.0 Mean Cor puscular Hemoglobin EUGENIO ([facility]) mean corpuscular HGB conc 32.4 g/dL 32.0-36.5 Mean Corpu scular HGB Conc EUGENIO ([facility]) red cell distribution width 12.2 % 11.5-14.5 Red Cell Distribution Width EUGENIO ([facility]) platelet count, automated 335 10 150-450 Platelet C ount, Automated EUGENIO ([facility]) neutrophils % 87.2 % 36.0-66.0 Above high normal [facility]rophils % [facility] lymph % 7.7 % 24.0-44.0 Below low normal Lymph % EUGENIO ( [facility]) mono % 4.1 % 0.0-5.0 [place] % EUGENIO ([facility]) eos % 0.0 % 0.0-3.0 Eos % EUGENIO ([facility]) baso % 0.1 % 0.0-1.0 Baso % [place] ([facility]) immature granulocyte % 0.9 % 0-3.0 Immature Gran ulocyte % EUGENIO ([facility]) nucleated red blood cell % 0.0 % 0-0 Nucleated Red Blood Cell % EUGENIO ([facility]) neutrophils # 14.1 10 1.5-8.5 Above high normal Neutrophils # A THENA ([facility]) lymph # 1.2 10 1.5-5.0 Below low normal Lymph # EUGENIO ( [facility]) mono # 0.7 10 0.0-0.8 [place] # EUGENIO ([facility]) eos # 0.0 10 0.0-0.5 Eos # EUGENIO ([facility]) baso # 0.0 10 0.0-0.2 Baso # EUGENIO ([facility]) ID Date Data Source [id number] 07/30/2020 08:03:00 PM EST EUGENIO ([facility]) Name Value Range Interpretation Code Description Data Pilar rce(s) Supporting Document(s) bedside glucose 478 mg/dL 70-105 Above high normal Bedside Gluco se EUGENIO ([facility]) ID Date Data Source [id number] 07/30/2020 06:01:00 PM ST[facility] ([facility]) Name Value Range Interpretation Code Description Data Pilar rce(s) Supporting Document(s) bedside glucose 400 mg/dL 70-105 Above high normal Bedside Gluco se EUGENIO ([facility]) ID Date Data Source [id number] 07/30/2020 12:21:00 PM STU [facility] ([facility]) Name Value Range Interpretation Code Description Data Pilar rce(s) Supporting Document(s) bedside glucose 432 mg/dL 70-105 Above high normal Bedside Gluco se [place] ([facility]) ID Date Data Source [id number] 07/30/2020 07:54:00 AM STU [facility] ([facility]) Name Value Range Interpretation Code Description Data Pilar rce(s) Supporting Document(s) bedside glucose 383 mg/dL 70-105 Above high normal Bedside Gluco se [facility] ([facility]) ID Date Data Source [id number] 07/30/2020 04:04:00 AM STU BECKER ([facility]) Name Value Range Interpretation Code Description Data Pilar rce(s) Supporting Document(s) magnesium level 2.5 mg/dL 1.8-2.4 Above high normal Magnesium Lev mary BECKER ([facility]) ID Date Data Source [id number] 07/30/2020 04:04:00 AM STU BECKER ([facility]) Name Value Range Interpretation Code Description Data Pilar rce(s) Supporting Document(s) glucose, fasting 387 mg/dL 70-100 Above high normal Glucose, Fas ting [place] ([facility]) blood urea nitrogen 20 mg/dL 7-18 Blood Urea Nitro gen EUGENIO ([facility]) creatinine for GFR 0.81 mg/dL 0.70-1.30 Creatinine for GF R EUGENIO ([facility]) glomerular filtration rate > 60.0 >60 Glomerula r Filtration Rate EUGENIO ([facility]) sodium level 138 mEq/L 136-145 Sodium Level EUGENIO ([facility]) potassium serum 4.8 mEq/L 3.5-5.1 Potassium Serum ATHE NA ([facility]) chloride level 103 mEq/L 98-107 Chloride Level EUGENIO ([facility]) carbon dioxide level 27 mEq/L 21-32 Carbon Dioxide Level EUGENIO ([facility]) anion gap 8 mEq/L 8-16 Anion Gap EUGENIO ([facility]) calcium level 8.5 mg/dL 8.5-10.1 Calcium Level MELBETA ( [facility]) ID Date Data Source [id number] 07/30/2020 04:04:00 AM EST EUGENIO ([facility]) Name Value Range Interpretation Code Description Data Pilar rce(s) Supporting Document(s) white blood count 17.9 10 4.0-10.0 Above high normal White Blood Count [place] ([facility]) red blood count 4.39 10 4.30-6.10 Red Blood Count ATHE ([facility]) hemoglobin 11.9 g/dL 13.5-17.5 Below low normal Hemoglobin EUGENIO ( [facility]) hematocrit 37.1 % 42.0-52.0 Below low normal Hematocrit EUGENIO ( [facility]) mean corpuscular volume 84.5 fL 80.0-96.0 Mean Corpusc ular Volume EUGENIO ([facility]) mean corpuscular hemoglobin 27.1 pg 27.0-33.0 Mean Cor puscular Hemoglobin EUGENIO ([facility]) mean corpuscular HGB conc 32.1 g/dL 32.0-36.5 Mean Corpu scular HGB Conc EUGENIO ([facility]) red cell distribution width 12.2 % 11.5-14.5 Red Cell Distribution Width EUGENIO ([facility]) platelet count, automated 311 10 150-450 Platelet C ount, Automated EUGENIO ([facility]) neutrophils % 88.8 % 36.0-66.0 Above high normal Neutrophils % A THENA ([facility]) lymph % 6.5 % 24.0-44.0 Below low normal Lymph % EUGENIO ( [facility]) mono % 4.0 % 0.0-5.0 [place] % EUGENIO ([facility]) eos % 0.0 % 0.0-3.0 Eos % EUGENIO ([facility]) baso % 0.1 % 0.0-1.0 Baso % EUGENIO ([facility]) immature granulocyte % 0.6 % 0-3.0 Immature Gran ulocyte % EUGENIO ([facility]) nucleated red blood cell % 0.0 % 0-0 Nucleated Red Blood Cell % EUGENIO ([facility]) neutrophils # 15.9 10 1.5-8.5 Above high normal Neutrophils # A THENA ([facility]) lymph # 1.2 10 1.5-5.0 Below low normal Lymph # EUGENIO ( [facility]) mono # 0.7 10 0.0-0.8 [place] # EUGENIO ([facility]) eos # 0.0 10 0.0-0.5 Eos # EUGENIO ([facility]) baso # 0.0 10 0.0-0.2 Baso # EUGENIO ([facility]) ID Date Data Source [id number] 07/29/2020 08:55:00 PM EST EUGENIO ([facility]) Name Value Range Interpretation Code Description Data Pilar rce(s) Supporting Document(s) bedside glucose 343 mg/dL 70-105 Above high normal Bedside Gluco se EUGENIO ([facility]) ID Date Data Source [id number] 07/29/2020 04:43:00 PM EST EUGENIO ([facility]) Name Value Range Interpretation Code Description Data Pilar rce(s) Supporting Document(s) bedside glucose 422 mg/dL 70-105 Above high normal Bedside Gluco se EUGENIO ([facility]) ID Date Data Source [id number] 07/29/2020 12:10:00 PM EST EUGENIO ([facility]) Name Value Range Interpretation Code Description Data Pilar rce(s) Supporting Document(s) bedside glucose 391 mg/dL 70-105 Above high normal Bedside Gluco se EUGENIO ([facility]) ID Date Data Source [id number] 07/29/2020 05:21:00 AM EST EUGENIO ([facility]) Name Value Range Interpretation Code Description Data Pilar rce(s) Supporting Document(s) magnesium level 2.4 mg/dL 1.8-2.4 Magnesium Level ATHE ([facility]) ID Date Data Source [id number] 07/29/2020 05:21:00 AM EST EUGENIO ([facility]) Name Value Range Interpretation Code Description Data Pilar rce(s) Supporting Document(s) glucose, fasting 284 mg/dL 70-100 Above high normal Glucose, Fas ting EUGENIO ([facility]) blood urea nitrogen 11 mg/dL 7-18 Blood Urea Nitro gen EUGENIO ([facility]) creatinine for GFR 0.75 mg/dL 0.70-1.30 Creatinine for GF R EUGENIO ([facility]) glomerular filtration rate > 60.0 >60 Glomerula r Filtration Rate EUGENIO ([facility]) sodium level 134 mEq/L 136-145 Below low normal Sodium Level ATHE NA ([facility]) potassium serum 4.8 mEq/L 3.5-5.1 Potassium Serum ATHE NA ([facility]) chloride level 100 mEq/L 98-107 Chloride Level EUGENIO ([facility]) carbon dioxide level 29 mEq/L 21-32 Carbon Dioxide Level EUGENIO ([facility]) anion gap 5 mEq/L 8-16 Below low normal Anion Gap EUGENIO ( [facility]) calcium level 8.7 mg/dL 8.5-10.1 Calcium Level EUGENIO ( [facility]) ID Date Data Source [id number] 07/29/2020 05:21:00 AM EST EUGENIO ([facility]) Name Value Range Interpretation Code Description Data Pilar rce(s) Supporting Document(s) white blood count 11.1 10 4.0-10.0 Above high normal White Blood Count EUGENIO ([facility]) red blood count 4.52 10 4.30-6.10 Red Blood Count ATHE ([facility]) hemoglobin 12.5 g/dL 13.5-17.5 Below low normal Hemoglobin EUGENIO ( [facility]) hematocrit 38.5 % 42.0-52.0 Below low normal Hematocrit EUGENIO ( [facility]) mean corpuscular volume 85.2 fL 80.0-96.0 Mean Corpusc ular Volume EUGENIO ([facility]) mean corpuscular hemoglobin 27.7 pg 27.0-33.0 Mean Cor puscular Hemoglobin EUGENIO ([facility]) mean corpuscular HGB conc 32.5 g/dL 32.0-36.5 Mean Corpu scular HGB Conc EUGENIO ([facility]) red cell distribution width 12.2 % 11.5-14.5 Red Cell Distribution Width EUGENIO ([facility]) platelet count, automated 254 10 150-450 Platelet C ount, Automated EUGENIO ([facility]) neutrophils % 87.2 % 36.0-66.0 Above high normal Neutrophils % A THENA ([facility]) lymph % 8.8 % 24.0-44.0 Below low normal Lymph % EUGENIO ( [facility]) mono % 3.1 % 0.0-5.0 [place] % EUGENIO ([facility]) eos % 0.0 % 0.0-3.0 Eos % EUGENIO ([facility]) baso % 0.1 % 0.0-1.0 Baso % EUGENIO ([facility]) immature granulocyte % 0.8 % 0-3.0 Immature Gran ulocyte % EUGENIO ([facility]) nucleated red blood cell % 0.0 % 0-0 Nucleated Red Blood Cell % EUGENIO ([facility]) neutrophils # 9.7 10 1.5-8.5 Above high normal Neutrophils # A THENA ([facility]) lymph # 1.0 10 1.5-5.0 Below low normal Lymph # EUGENIO ( [facility]) mono # 0.3 10 0.0-0.8 [place] # EUGENIO ([facility]) eos # 0.0 10 0.0-0.5 Eos # EUGENIO ([facility]) baso # 0.0 10 0.0-0.2 Baso # EUGENIO ([facility]) ID Date Data Source [id number] 07/28/2020 08:09:00 PM EST EUGENIO ([facility]) Name Value Range Interpretation Code Description Data Pilar rce(s) Supporting Document(s) bedside glucose 360 mg/dL 70-105 Above high normal Bedside Gluco se EUGNEIO ([facility]) ID Date Data Source [id number] 07/28/2020 05:44:00 PM EST EUGENIO ([facility]) Name Value Range Interpretation Code Description Data Pilar rce(s) Supporting Document(s) bedside glucose 198 mg/dL 70-105 Above high normal Bedside Gluco se EUGENIO ([facility]) ID Date Data Source [id number] 07/28/2020 12:08:00 PM EST EUGENIO ([facility]) Name Value Range Interpretation Code Description Data Pilar rce(s) Supporting Document(s) bedside glucose 245 mg/dL 70-105 Above high normal Bedside Gluco se EUGENIO ([facility]) ID Date Data Source [id number] 07/28/2020 10:05:00 AM EST EUGENIO ([facility]) Name Value Range Interpretation Code Description Data Pilar rce(s) Supporting Document(s) sars covid-19 amplification negative negative Sars Cov id-19 Amplification EUGENIO ([facility]) ID Date Data Source [id number] 07/28/2020 10:05:00 AM EST [facility] Name Value Range Interpretation Code Description Data Pilar rce(s) Supporting Document(s) SARS coronavirus 2 RNA [Presence] in Res piratory specimen by JUJU with probe detection NEGATIVE [facility] This lab was ordered by [facility] a nd reported by [facility]. ID Date Data Source [id number] 07/28/2020 09:02:00 AM EST EUGENIO ([facility]) Name Value Range Interpretation Code Description Data Pilar rce(s) Supporting Document(s) bedside glucose 175 mg/dL 70-105 Above high normal Bedside Gluco se [place] ([facility]) ID Date Data Source [id number] 07/28/2020 05:38:00 AM EST EUGENIO ([facility]) Name Value Range Interpretation Code Description Data Pilar rce(s) Supporting Document(s) magnesium level 2.0 mg/dL 1.8-2.4 Magnesium Level ATHE ([facility]) ID Date Data Source [id number] 07/28/2020 05:38:00 AM EST EUGENIO ([facility]) Name Value Range Interpretation Code Description Data Pilar rce(s) Supporting Document(s) glucose, fasting 176 mg/dL 70-100 Above high normal Glucose, Fas ting EUGENIO ([facility]) blood urea nitrogen 11 mg/dL 7-18 Blood Urea Nitro gen EUGENIO ([facility]) creatinine for GFR 0.71 mg/dL 0.70-1.30 Creatinine for GF R EUGENIO ([facility]) glomerular filtration rate > 60.0 >60 Glomerula r Filtration Rate EUGENIO ([facility]) sodium level 139 mEq/L 136-145 Sodium Level EUGENIO ([facility]) potassium serum 4.1 mEq/L 3.5-5.1 Potassium Serum ATHE NA ([facility]) chloride level 106 mEq/L 98-107 Chloride Level EUGENIO ([facility]) carbon dioxide level 25 mEq/L 21-32 Carbon Dioxide Level EUGENIO ([facility]) anion gap 8 mEq/L 8-16 Anion Gap EUGENIO ([facility]) calcium level 8.5 mg/dL 8.5-10.1 Calcium Level EUGENIO ( [facility]) ID Date Data Source [id number] 07/28/2020 05:38:00 AM EST EUGENIO ([facility]) Name Value Range Interpretation Code Description Data Pilar rce(s) Supporting Document(s) white blood count 11.4 10 4.0-10.0 Above high normal White Blood Count EUGENIO ([facility]) red blood count 4.52 10 4.30-6.10 Red Blood Count ATHE ([facility]) hemoglobin 12.5 g/dL 13.5-17.5 Below low normal Hemoglobin EUGENIO ( [facility]) hematocrit 38.6 % 42.0-52.0 Below low normal Hematocrit EUGENIO ( [facility]) mean corpuscular volume 85.4 fL 80.0-96.0 Mean Corpusc ular Volume EUGENIO ([facility]) mean corpuscular hemoglobin 27.7 pg 27.0-33.0 Mean Cor puscular Hemoglobin EUGENIO ([facility]) mean corpuscular HGB conc 32.4 g/dL 32.0-36.5 Mean Corpu scular HGB Conc EUGENIO ([facility]) red cell distribution width 12.4 % 11.5-14.5 Red Cell Distribution Width EUGENIO ([facility]) platelet count, automated 271 10 150-450 Platelet C ount, Automated EUGENIO ([facility]) neutrophils % 76.3 % 36.0-66.0 Above high normal Neutrophils % A THENA ([facility]) lymph % 13.6 % 24.0-44.0 Below low normal Lymph % EUGENIO ( [facility]) mono % 8.2 % 0.0-5.0 Above high normal [place] % EUGENIO ([facility]) eos % 0.6 % 0.0-3.0 Eos % EUGENIO ([facility]) baso % 0.2 % 0.0-1.0 Baso % EUGENIO ([facility]) immature granulocyte % 1.1 % 0-3.0 Immature Gran ulocyte % EUGENIO ([facility]) nucleated red blood cell % 0.0 % 0-0 Nucleated Red Blood Cell % EUGENIO ([facility]) neutrophils # 8.7 10 1.5-8.5 Above high normal Neutrophils # A THENA ([facility]) lymph # 1.5 10 1.5-5.0 Lymph # EUGENIO ([facility]) mono # 0.9 10 0.0-0.8 Above high normal [place] # EUGENIO ([facility]) eos # 0.1 10 0.0-0.5 Eos # EUGENIO ([facility]) baso # 0.0 10 0.0-0.2 Baso # EUGENIO ([facility]) ID Date Data Source [id number] 07/27/2020 10:02:00 PM EST EUGENIO ([facility]) Name Value Range Interpretation Code Description Data Pilar rce(s) Supporting Document(s) ID Date Data Source [id number] 07/27/2020 10:02:00 PM EST EUGENIO ([facility]) Name Value Range Interpretation Code Description Data Pilar rce(s) Supporting Document(s) ID Date Data Source [id number] 07/27/2020 10:02:00 PM EST EUGENIO ([facility]) Name Value Range Interpretation Code Description Data Pilar rce(s) Supporting Document(s) troponin I < 0.02 < 0.10 Troponin I EUGENIO ([facility]) ID Date Data Source [id number] 07/27/2020 08:14:00 PM EST EUGENIO ([facility]) Name Value Range Interpretation Code Description Data Pilar rce(s) Supporting Document(s) bedside glucose 215 mg/dL 70-105 Above high normal Bedside Gluco se EUGENIO ([facility]) ID Date Data Source [id number] 07/27/2020 05:08:00 PM EST EUGENIO ([facility]) Name Value Range Interpretation Code Description Data Pilar rce(s) Supporting Document(s) bedside glucose 189 mg/dL 70-105 Above high normal Bedside Gluco se EUGENIO ([facility]) ID Date Data Source [id number] 07/27/2020 11:46:00 AM EST EUGENIO ([facility]) Name Value Range Interpretation Code Description Data Pilar rce(s) Supporting Document(s) bedside glucose 176 mg/dL 70-105 Above high normal Bedside Gluco se EUGENIO ([facility]) ID Date Data Source [id number] 07/27/2020 06:19:00 AM EST EUGENIO ([facility]) Name Value Range Interpretation Code Description Data Pilar rce(s) Supporting Document(s) magnesium level 2.1 mg/dL 1.8-2.4 Magnesium Level ATHE NA ([facility]) ID Date Data Source [id number] 07/27/2020 06:19:00 AM EST EUGENIO ([facility]) Name Value Range Interpretation Code Description Data Pilar rce(s) Supporting Document(s) glucose, fasting 144 mg/dL 70-100 Above high normal Glucose, Fas ting EUGENIO ([facility]) blood urea nitrogen 12 mg/dL 7-18 Blood Urea Nitro gen EUGENIO ([facility]) creatinine for GFR 0.63 mg/dL 0.70-1.30 Below low normal Creatinine for GFR EUGEINO ([facility]) glomerular filtration rate > 60.0 >60 Glomerula r Filtration Rate EUGENIO ([facility]) sodium level 138 mEq/L 136-145 Sodium Level EUGENIO ([facility]) potassium serum 3.6 mEq/L 3.5-5.1 Potassium Serum ATHE ([facility]) chloride level 104 mEq/L 98-107 Chloride Level EUGENIO ([facility]) carbon dioxide level 25 mEq/L 21-32 Carbon Dioxide Level EUGENIO ([facility]) anion gap 9 mEq/L 8-16 Anion Gap EUGENIO ([facility]) calcium level 8.2 mg/dL 8.5-10.1 Below low normal Calcium Level AT [facility]) ID Date Data Source [id number] 07/27/2020 06:19:00 AM EST [facility]) Name Value Range Interpretation Code Description Data Pilar rce(s) Supporting Document(s) white blood count 11.4 10 4.0-10.0 Above high normal White Blood Count EUGENIO ([facility]) red blood count 4.73 10 4.30-6.10 Red Blood Count ATHE [facility]) hemoglobin 13.0 g/dL 13.5-17.5 Below low normal Hemoglobin EUGENIO ( [facility]) hematocrit 40.9 % 42.0-52.0 Below low normal Hematocrit EUGENIO ( [facility]) mean corpuscular volume 86.5 fL 80.0-96.0 Mean Corpusc ular Volume EUGENIO ([facility]) mean corpuscular hemoglobin 27.5 pg 27.0-33.0 Mean Cor puscular Hemoglobin EUGENIO ([facility]) mean corpuscular HGB conc 31.8 g/dL 32.0-36.5 Below low micki l Mean Corpuscular HGB Conc EUGENIO ([facility]) red cell distribution width 12.1 % 11.5-14.5 Red Cell Distribution Width EUGENIO ([facility]) platelet count, automated 290 10 150-450 Platelet C ount, Automated EUGENIO ([facility]) neutrophils % 69.9 % 36.0-66.0 Above high normal Neutrophils % A THENA ([facility]) lymph % 19.6 % 24.0-44.0 Below low normal Lymph % EUGENIO ( [facility]) mono % 8.7 % 0.0-5.0 Above high normal [place] % EUGENIO ([facility]) eos % 0.5 % 0.0-3.0 Eos % EUGENIO ([facility]) baso % 0.2 % 0.0-1.0 Baso % [place] ([facility]) immature granulocyte % 1.1 % 0-3.0 Immature Gran ulocyte % EUGENIO ([facility]) nucleated red blood cell % 0.0 % 0-0 Nucleated Red Blood Cell % [place] ([facility]) neutrophils # 8.0 10 1.5-8.5 Neutrophils # EUGENIO ( [facility]) lymph # 2.2 10 1.5-5.0 Lymph # EUGENIO ([facility]) mono # 1.0 10 0.0-0.8 Above high normal [place] # EUGENIO ([facility]) eos # 0.1 10 0.0-0.5 Eos # EUGENIO ([facility]) baso # 0.0 10 0.0-0.2 Baso # EUGENIO ([facility]) ID Date Data Source [id number] 07/26/2020 10:47:00 PM EST EUGENIO ([facility]) Name Value Range Interpretation Code Description Data Pilar rce(s) Supporting Document(s) bedside glucose 246 mg/dL 70-105 Above high normal Bedside Gluco se EUGENIO ([facility]) ID Date Data Source [id number] 07/26/2020 05:19:00 PM EST EUGENIO ([facility]) Name Value Range Interpretation Code Description Data Pilar rce(s) Supporting Document(s) bedside glucose 225 mg/dL 70-105 Above high normal Bedside Gluco se EUGENIO ([facility]) ID Date Data Source [id number] 07/26/2020 04:04:00 PM EST EUGENIO ([facility]) Name Value Range Interpretation Code Description Data Pilar rce(s) Supporting Document(s) erythrocyte sedimentation rate 44 mm/HR 0-15 Above high normal Erythrocyte Sedimentation Rate EUGENIO ([facility]) ID Date Data Source [id number] 07/26/2020 12:05:00 PM EST EUGENIO ([facility]) Name Value Range Interpretation Code Description Data Pilar rce(s) Supporting Document(s) legionella antigen urine negative negative Legionella Antigen Urine EUGENIO ([facility]) ID Date Data Source [id number] 07/26/2020 12:05:00 PM EST EUGENIO ([facility]) Name Value Range Interpretation Code Description Data Pilar rce(s) Supporting Document(s) specimen source urine . Specimen Source [facility] ([facility]) urine strep pneumoniae antigen negative negative Urine Strep Pneumoniae Antigen [place] ([facility]) body fluid culture not indicated. . Body Fluid Cu lture [place]A ([facility]) organism id not indicated. . Organism Id MEL[place]ETA ( [facility]) please note . Please Note EUGENIO ([facility]) ID Date Data Source [id number] 07/26/2020 11:28:00 AM EST EUGENIO ([facility]) Name Value Range Interpretation Code Description Data Pilar rce(s) Supporting Document(s) bedside glucose 210 mg/dL 70-105 Above high normal Bedside Gluco se EUGENIO ([facility]) ID Date Data Source [id number] 07/26/2020 05:51:00 AM EST [place] ([facility]) Name Value Range Interpretation Code Description Data Pilar rce(s) Supporting Document(s) bedside glucose 114 mg/dL 70-105 Above high normal Bedside Gluco se EUGENIO ([facility]) ID Date Data Source [id number] 07/26/2020 03:59:00 AM EST EUGENIO ([facility]) Name Value Range Interpretation Code Description Data Pilar rce(s) Supporting Document(s) C reactive protein quantitativ 4.54 mg/dL 0.00-0.30 Above high normal C Reactive Protein Quantitativ [place] ([facility]) ID Date Data Source [id number] 07/26/2020 03:59:00 AM EST [place] ([facility]) Name Value Range Interpretation Code Description Data Pilar rce(s) Supporting Document(s) platelet estimate normal normal Platelet Estimate [place] ([facility]) ID Date Data Source [id number] 07/26/2020 03:59:00 AM EST [facility]) Name Value Range Interpretation Code Description Data Pilar rce(s) Supporting Document(s) neutrophils 66 % 28-66 Neutrophils EUGENIO ([facility]) bands 1 % < 11 Bands EUGENIO ([facility]) lymphocytes 24 % 16-44 Lymphocytes EUGENIO ([facility]) monocytes 6 % 0-5 Above high normal Monocytes EUGENIO ([facility]) atypical lymph 3 % 0-5 Atypical Lymph EUGENIO ([facility]) anisocytosis 1+ Anisocytosis [place] ([facility]) ID Date Data Source [id number] 07/26/2020 03:59:00 AM EST [facility]) Name Value Range Interpretation Code Description Data Pilar rce(s) Supporting Document(s) white blood count 8.9 10 4.0-10.0 White Blood Count [place] ([facility]) red blood count 5.03 10 4.30-6.10 Red Blood Count ATHE NA ([facility]) hemoglobin 13.6 g/dL 13.5-17.5 Hemoglobin EUGENIO ([facility]) hematocrit 45.2 % 42.0-52.0 Hematocrit EUGENIO ([facility]) mean corpuscular volume 89.9 fL 80.0-96.0 Mean Corpusc ular Volume EUGENIO ([facility]) mean corpuscular hemoglobin 27.0 pg 27.0-33.0 Mean Cor puscular Hemoglobin EUGENIO ([facility]) mean corpuscular HGB conc 30.1 g/dL 32.0-36.5 Below low micki l Mean Corpuscular HGB Conc [place] ([facility]) red cell distribution width 12.2 % 11.5-14.5 Red Cell Distribution Width EUGENIO ([facility]) platelet count, automated 277 10 150-450 Platelet C ount, Automated EUGENIO ([facility]) nucleated red blood cell % 0.0 % 0-0 Nucleated Red Blood Cell % [place] ([facility]) ID Date Data Source [id number] 07/26/2020 03:59:00 AM EST [place] ([facility]) Name Value Range Interpretation Code Description Data Pilar rce(s) Supporting Document(s) magnesium level 2.2 mg/dL 1.8-2.4 Magnesium Level ATHE YARIEL ([facility]) ID Date Data Source [id number] 07/26/2020 03:59:00 AM EST [place] ([facility]) Name Value Range Interpretation Code Description Data Pilar rce(s) Supporting Document(s) glucose, fasting 125 mg/dL 70-100 Above high normal Glucose, Fas ting EUGENIO ([facility]) blood urea nitrogen 16 mg/dL 7-18 Blood Urea Nitro gen EUGENIO ([facility]) creatinine for GFR 0.59 mg/dL 0.70-1.30 Below low normal Creatinine for GFR EUGENIO ([facility]) glomerular filtration rate > 60.0 >60 Glomerula r Filtration Rate EUGENIO ([facility]) sodium level 139 mEq/L 136-145 Sodium Level EUGENIO ([facility]) potassium serum 4.0 mEq/L 3.5-5.1 Potassium Serum ATHE NA ([facility]) chloride level 107 mEq/L 98-107 Chloride Level EUGENIO ([facility]) carbon dioxide level 24 mEq/L 21-32 Carbon Dioxide Level EUGENIO ([facility]) anion gap 8 mEq/L 8-16 Anion Gap EUGENIO ([facility]) calcium level 8.0 mg/dL 8.5-10.1 Below low normal Calcium Level AT [facility]) ID Date Data Source [id number] 07/25/2020 04:44:00 PM EST EUGENIO ([facility]) Name Value Range Interpretation Code Description Data Pilar rce(s) Supporting Document(s) bedside glucose 247 mg/dL 70-105 Above high normal Bedside Gluco se [facility]) ID Date Data Source [id number] 07/25/2020 11:[facility] Name Value Range Interpretation Code Description Data Pilar rce(s) Supporting Document(s) bedside glucose 158 mg/dL 70-105 Above high normal Bedside Gluco se EUGENIO ([facility]) ID Date Data Source [id number] 07/25/2020 05:02:00 AM EST EUGENIO ([facility]) Name Value Range Interpretation Code Description Data Pilar rce(s) Supporting Document(s) platelet estimate normal normal [facility] ID Date Data Source [id number] 07/25/2020 05:02:00 [facility] Name Value Range Interpretation Code Description Data Pilar rce(s) Supporting Document(s) neutrophils 72 % 28-66 Above high normal Neutrophils ATHEN A ([facility]) bands 1 % < 11 Bands EUGENIO ([facility]) lymphocytes 14 % 16-44 Below low normal Lymphocytes EUGENIO ([facility]) monocytes 6 % 0-5 Above high normal Monocytes EUGENIO ([facility]) eosinophils 1 % 0-3 Eosinophils EUGENIO ([facility]) atypical lymph 6 % 0-5 Above high normal Atypical Lymph EUGENIO ([facility]) anisocytosis 1+ Anisocytosis EUGENIO ([facility]) ID Date Data Source [id number] 07/25/2020 05:02:00 AM EST EUGENIO ([facility]) Name Value Range Interpretation Code Description Data Pilar rce(s) Supporting Document(s) white blood count 9.9 10 4.0-10.0 White Blood Count EUGENIO ([facility]) red blood count 4.90 10 4.30-6.10 Red Blood Count ATHE NA ([facility]) hemoglobin 13.3 g/dL 13.5-17.5 Below low normal Hemoglobin EUGENIO ( [facility]) hematocrit 41.7 % 42.0-52.0 Below low normal Hematocrit EUGENIO ( [facility]) mean corpuscular volume 85.1 fL 80.0-96.0 Mean Corpusc ular Volume EUGENIO ([facility]) mean corpuscular hemoglobin 27.1 pg 27.0-33.0 Mean Cor puscular Hemoglobin EUGENIO ([facility]) mean corpuscular HGB conc 31.9 g/dL 32.0-36.5 Below low micki l Mean Corpuscular HGB Conc EUGENIO ([facility]) red cell distribution width 12.2 % 11.5-14.5 Red Cell Distribution Width EUGENIO ([facility]) platelet count, automated 295 10 150-450 Platelet C ount, Automated EUGENIO ([facility]) nucleated red blood cell % 0.0 % 0-0 Nucleated Red Blood Cell % EUGENIO ([facility]) ID Date Data Source [id number] 07/25/2020 05:02:00 AM EST EUGENIO ([facility]) Name Value Range Interpretation Code Description Data Pilar rce(s) Supporting Document(s) magnesium level 2.2 mg/dL 1.8-2.4 Magnesium Level ATHE NA ([facility]) ID Date Data Source [id number] 07/25/2020 05:02:00 AM EST EUGENIO ([facility]) Name Value Range Interpretation Code Description Data Pilar rce(s) Supporting Document(s) glucose, fasting 146 mg/dL 70-100 Above high normal Glucose, Fas ting EUGENIO ([facility]) blood urea nitrogen 19 mg/dL 7-18 Above high normal Blood Ure a Nitrogen EUGENIO ([facility]) creatinine for GFR 0.75 mg/dL 0.70-1.30 Creatinine for GF R EUGENIO ([facility]) glomerular filtration rate > 60.0 >60 Glomerula r Filtration Rate EUGENIO ([facility]) sodium level 139 mEq/L 136-145 Sodium Level EUGENIO ([facility]) potassium serum 4.4 mEq/L 3.5-5.1 Potassium Serum ATHE ([facility]) chloride level 105 mEq/L 98-107 Chloride Level EUGENIO ([facility]) carbon dioxide level 28 mEq/L 21-32 Carbon Dioxide Level EUGENIO ([facility]) anion gap 6 mEq/L 8-16 Below low normal Anion Gap EUGENIO ( [facility]) calcium level 8.7 mg/dL 8.5-10.1 Calcium Level EUGENIO ( [facility]) phosphorus level 3.9 mg/dL 2.5-4.9 Phosphorus Level AT [facility]) AST/SGOT 56 U/L 7-37 Above high normal AST/SGOT EUGENIO ([facility]) ALT/SGPT 70 U/L 12-78 ALT/SGPT EUGENIO ([facility]) LDH lactate dehydrogenase 425 U/L 87-241 Above high norm al LDH Lactate Dehydrogenase EUGENIO ([facility]) CPK creatine phosphokinase 75 U/L 39-308 CPK Creat ine Phosphokinase EUGENIO ([facility]) alkaline phosphatase 63 U/L 45-117 Alkaline Phosph atase EUGENIO ([facility]) bilirubin,total 1.0 mg/dL 0.2-1.0 Bilirubin,total ATHE NA ([facility]) triglycerides level 221 mg/dL <150 Above high normal Triglycer ides Level EUGENIO ([facility]) cholesterol level 140 mg/dL < 200 Cholesterol Level EUGENIO ([facility]) total protein 6.6 gm/dL 6.4-8.2 Total Protein EUGENIO ( [facility]) albumin 2.7 gm/dL 3.2-5.2 Below low normal Albumin EUGENIO ( [facility]) albumin/globulin ratio Albumin/globu sandy Ratio EUGENIO ([facility]) ID Date Data Source [id number] 07/25/2020 05:02:00 AM EST EUGENIO ([facility]) Name Value Range Interpretation Code Description Data Iplar rce(s) Supporting Document(s) SUKHI result calc negative SUKHI Result Calc ATHE YARIEL ([facility]) ID Date Data Source [id number] 07/25/2020 12:56:00 AM EST EUGENIO ([facility]) Name Value Range Interpretation Code Description Data Pilar rce(s) Supporting Document(s) bedside glucose 188 mg/dL 70-105 Above high normal Bedside Gluco se EUGENIO ([facility]) ID Date Data Source [id number] 07/24/2020 06:39:00 PM EST EUGENIO ([facility]) Name Value Range Interpretation Code Description Data Pilar rce(s) Supporting Document(s) bedside glucose 213 mg/dL 70-105 Above high normal Bedside Gluco se EUGENIO ([facility]) ID Date Data Source [id number] 07/24/2020 06:25:00 PM EST EUGENIO ([facility]) Name Value Range Interpretation Code Description Data Pilar rce(s) Supporting Document(s) ABG pH (arterial) 7.402 units 7.350-7.450 ABG pH (Arterial ) EUGENIO ([facility]) ABG partial pressure CO2 38.9 mmHg 35.0-45.0 ABG Partial Pressure CO2 EUGENIO ([facility]) ABG partial pressure O2 66.5 mmHg 75.0-100.0 Below low normal ABG Partial Pressure O2 EUGENIO ([facility]) ABG total CO2 24.9 mEq/L 22.0-29.0 ABG Total CO2 EUGENIO ( [facility]) ABG HCO3 23.7 mEq/L 22.0-26.0 Abg Hco3 EUGENIO ([facility]) ABG base excess -2.0-2.0 ABG Base Excess ATHE NA ([facility]) ABG standard HCO3 23.7 mEq/L 22.0-26.0 ABG Standard HCO3 EUGENIO ([facility]) ABG O2 saturation 93.6 % 95.0-99.0 Below low normal ABG O2 Satur ation EUGENIO ([facility]) ID Date Data Source [id number] 07/24/2020 12:29:00 PM EST EUGENIO ([facility]) Name Value Range Interpretation Code Description Data Pilar rce(s) Supporting Document(s) bedside glucose 149 mg/dL 70-105 Above high normal Bedside Gluco se EUGENIO ([facility]) ID Date Data Source [id number] 07/24/2020 06:06:00 AM EST EUGENIO ([facility]) Name Value Range Interpretation Code Description Data Pilar rce(s) Supporting Document(s) bedside glucose 189 mg/dL 70-105 Above high normal Bedside Gluco se EUGENIO ([facility]) ID Date Data Source [id number] 07/24/2020 06:00:00 AM EST EUGENIO ([facility]) Name Value Range Interpretation Code Description Data Pilar rce(s) Supporting Document(s) histoplasma gal'maria eugenia Ag ur <0.5 <0.5 NG/mL Histopl asma Gal'maria eugenia Ag Ur EUGENIO ([facility]) disclaimer . Disclaimer EUGENIO ([facility]) ID Date Data Source [id number] 07/24/2020 05:47:00 AM EST EUGENIO ([facility]) Name Value Range Interpretation Code Description Data Pilar rce(s) Supporting Document(s) cryptococcus antigen ser negative negative Cryptococcu s Antigen Ser MELBETA ([facility]) ID Date Data Source [id number] 07/24/2020 05:47:00 AM EST MELBETA ([facility]) Name Value Range Interpretation Code Description Data Pilar rce(s) Supporting Document(s) aspergillus galactomannan Ag 0.02 index 0.00-0.49 Aspergillus Galactomannan Ag MELBETA ([facility]) ID Date Data Source [id number] 07/24/2020 05:47:00 AM EST EUGENIO ([facility]) Name Value Range Interpretation Code Description Data Pilar rce(s) Supporting Document(s) cryptococcus antigen ser negative negative Cryptococcu s Antigen Ser EUGENIO ([facility]) ID Date Data Source [id number] 07/24/2020 05:47:00 AM EST MELBETA ([facility]) Name Value Range Interpretation Code Description Data Pilar rce(s) Supporting Document(s) fungitell, serum <31 <80 Fungitell, Serum AT [facility]) ID Date Data Source [id number] 07/24/2020 05:47:00 AM EST EUGENIO ([facility]) Name Value Range Interpretation Code Description Data Pilar rce(s) Supporting Document(s) quantiferon criteria . Quantiferon Cri teria EUGENIO ([facility]) quantiferon TB1 Ag value 0.03 IU/mL . Quantiferon TB1 Ag Value MELBETA ([facility]) quantiferon TB2 Ag value 0.03 IU/mL . Quantiferon TB2 Ag Value [place]EL[place]A ([facility]) quantiferon nil value 0.03 IU/mL . Quantiferon Ni l Value MELBETA ([facility]) quantiferon-TB gold plus negative negative quantiferon -TB Gold plus MEL[place]ETA ([facility]) quantiferon mitogen value >10.00 . Quantifero n Mitogen Value MEL[place]ETA ([facility]) ID Date Data Source [id number] 07/24/2020 05:47:00 AM EST EUGENIO ([facility]) Name Value Range Interpretation Code Description Data Pilar rce(s) Supporting Document(s) procalcitonin Procalcitonin EUGENIO ([facility]) ID Date Data Source [id number] 07/24/2020 05:47:00 AM EST EUGENIO ([facility]) Name Value Range Interpretation Code Description Data Pilar rce(s) Supporting Document(s) HIV 1&2 screen centaur negative negative HIV 1&2 Scree n Centaur EUGENIO ([facility]) ID Date Data Source [id number] 07/24/2020 05:47:00 AM EST [facility]) Name Value Range Interpretation Code Description Data Pilar rce(s) Supporting Document(s) C reactive protein quantitativ 2.66 mg/dL 0.00-0.30 Above high normal C Reactive Protein Quantitativ [facility]) ID Date Data Source [id number] 07/24/2020 05:47:00 AM EST EUGENIO ([facility]) Name Value Range Interpretation Code Description Data Pilar rce(s) Supporting Document(s) glucose, fasting 193 mg/dL 70-100 Above high normal Glucose, Fas ting EUGENIO ([facility]) blood urea nitrogen 19 mg/dL 7-18 Above high normal Blood Ure a Nitrogen EUGENIO ([facility]) creatinine for GFR 0.63 mg/dL 0.70-1.30 Below low normal Creatinine for GFR EUGENIO ([facility]) glomerular filtration rate > 60.0 >60 Glomerula r Filtration Rate EUGENIO ([facility]) sodium level 139 mEq/L 136-145 Sodium Level EUGENIO ([facility]) potassium serum 4.2 mEq/L 3.5-5.1 Potassium Serum ATHE ([facility]) chloride level 107 mEq/L 98-107 Chloride Level MELBETA ([facility]) carbon dioxide level 24 mEq/L 21-32 Carbon Dioxide Level EUGENIO ([facility]) anion gap 8 mEq/L 8-16 Anion Gap EUGENIO ([facility]) calcium level 8.3 mg/dL 8.5-10.1 Below low normal Calcium Level AT [facility] ([facility]) AST/SGOT 49 U/L 7-37 Above high normal AST/SGOT EUGENIO ([facility]) ALT/SGPT 62 U/L 12-78 ALT/SGPT [place]EL[place]ETA ([facility]) alkaline phosphatase 62 U/L 45-117 Alkaline Phosph atase EUGENIO ([facility]) bilirubin,total 0.9 mg/dL 0.2-1.0 Bilirubin,total ATHE ([facility]) total protein 6.3 gm/dL 6.4-8.2 Below low normal Total Protein AT [facility] ([facility]) albumin 2.6 gm/dL 3.2-5.2 Below low normal Albumin EUGENIO ( [facility]) albumin/globulin ratio Albumin/globu sandy Ratio MELBETA ([facility]) ID Date Data Source [id number] 07/24/2020 05:47:00 AM EST EUGENIO ([facility]) Name Value Range Interpretation Code Description Data Pilar rce(s) Supporting Document(s) white blood count 9.1 10 4.0-10.0 White Blood Count EUGENIO ([facility]) red blood count 4.62 10 4.30-6.10 Red Blood Count ATHE NA ([facility]) hemoglobin 13.1 g/dL 13.5-17.5 Below low normal Hemoglobin EUGENIO ( [facility]) hematocrit 39.6 % 42.0-52.0 Below low normal Hematocrit EUGENIO ( [facility]) mean corpuscular volume 85.7 fL 80.0-96.0 Mean Corpusc ular Volume EUGENIO ([facility]) mean corpuscular hemoglobin 28.4 pg 27.0-33.0 Mean Cor puscular Hemoglobin EUGENIO ([facility]) mean corpuscular HGB conc 33.1 g/dL 32.0-36.5 Mean Corpu scular HGB Conc EUGENIO ([facility]) red cell distribution width 12.4 % 11.5-14.5 Red Cell Distribution Width EUGENIO ([facility]) platelet count, automated 280 10 150-450 Platelet C ount, Automated EUGENIO ([facility]) neutrophils % 74.7 % 36.0-66.0 Above high normal Neutrophils % A THENA ([facility]) lymph % 16.2 % 24.0-44.0 Below low normal Lymph % EUGENIO ( [facility]) mono % 8.2 % 0.0-5.0 Above high normal [place] % EUGENIO ([facility]) eos % 0.0 % 0.0-3.0 Eos % EUGENIO ([facility]) baso % 0.1 % 0.0-1.0 Baso % EUGENIO ([facility]) immature granulocyte % 0.8 % 0-3.0 Immature Gran ulocyte % EUGENIO ([facility]) nucleated red blood cell % 0.0 % 0-0 Nucleated Red Blood Cell % EUGENIO ([facility]) neutrophils # 6.8 10 1.5-8.5 Neutrophils # EUGENIO ( [facility]) lymph # 1.5 10 1.5-5.0 Lymph # EUGENIO ([facility]) mono # 0.7 10 0.0-0.8 [place] # EUGENIO ([facility]) eos # 0.0 10 0.0-0.5 Eos # EUGENIO ([facility]) baso # 0.0 10 0.0-0.2 Baso # EUGENIO ([facility]) ID Date Data Source [id number] 07/24/2020 12:19:00 AM EST EUGENIO ([facility]) Name Value Range Interpretation Code Description Data Pilar rce(s) Supporting Document(s) bedside glucose 213 mg/dL 70-105 Above high normal Bedside Gluco se EUGENIO ([facility]) ID Date Data Source [id number] 07/23/2020 05:35:00 PM EST EUGENIO ([facility]) Name Value Range Interpretation Code Description Data Pilar rce(s) Supporting Document(s) bedside glucose 218 mg/dL 70-105 Above high normal Bedside Gluco se EUGENIO ([facility]) ID Date Data Source [id number] 07/23/2020 12:09:00 PM EST EUGENIO ([facility]) Name Value Range Interpretation Code Description Data Pilar rce(s) Supporting Document(s) bedside glucose 174 mg/dL 70-105 Above high normal Bedside Gluco se EUGENIO ([facility]) ID Date Data Source [id number] 07/23/2020 05:29:00 AM EST EUGENIO ([facility]) Name Value Range Interpretation Code Description Data Pilar rce(s) Supporting Document(s) glucose, fasting 192 mg/dL 70-100 Above high normal Glucose, Fas ting MELBETA ([facility]) blood urea nitrogen 16 mg/dL 7-18 Blood Urea Nitro gen [place]A ([facility]) creatinine for GFR 0.87 mg/dL 0.70-1.30 Creatinine for GF R EUGENIO ([facility]) glomerular filtration rate > 60.0 >60 Glomerula r Filtration Rate EUGENIO ([facility]) sodium level 137 mEq/L 136-145 Sodium Level EUGENIO ([facility]) chloride level 106 mEq/L 98-107 Chloride Level EUGENIO ([facility]) potassium serum 5.1 mEq/L 3.5-5.1 Potassium Serum ATHE ([facility]) carbon dioxide level 27 mEq/L 21-32 Carbon Dioxide Level EUGENIO ([facility]) anion gap 4 mEq/L 8-16 Below low normal Anion Gap EUGENIO ( [facility]) calcium level 8.5 mg/dL 8.5-10.1 Calcium Level EUGENIO ( [facility]) AST/SGOT 63 U/L 7-37 Above high normal AST/SGOT EUGENIO ([facility]) ALT/SGPT 65 U/L 12-78 ALT/SGPT EUGENIO ([facility]) alkaline phosphatase 55 U/L 45-117 Alkaline Phosph atase EUGENIO ([facility]) bilirubin,total 1.0 mg/dL 0.2-1.0 Bilirubin,total ATHE ([facility]) total protein 6.5 gm/dL 6.4-8.2 Total Protein EUGENIO ( [facility]) albumin 2.5 gm/dL 3.2-5.2 Below low normal Albumin EUGENIO ( [facility]) albumin/globulin ratio Albumin/globu sandy Ratio EUGENIO ([facility]) ID Date Data Source [id number] 07/23/2020 05:29:00 AM EST EUGENIO ([facility]) Name Value Range Interpretation Code Description Data Pilar rce(s) Supporting Document(s) white blood count 6.8 10 4.0-10.0 White Blood Count EUGENIO ([facility]) red blood count 4.53 10 4.30-6.10 Red Blood Count ATHE ([facility]) hemoglobin 12.8 g/dL 13.5-17.5 Below low normal Hemoglobin EUGENIO ( [facility]) hematocrit 39.0 % 42.0-52.0 Below low normal Hematocrit EUGENIO ( [facility]) mean corpuscular volume 86.1 fL 80.0-96.0 Mean Corpusc ular Volume EUGENIO ([facility]) mean corpuscular hemoglobin 28.3 pg 27.0-33.0 Mean Cor puscular Hemoglobin EUGENIO ([facility]) mean corpuscular HGB conc 32.8 g/dL 32.0-36.5 Mean Corpu scular HGB Conc EUGENIO ([facility]) red cell distribution width 12.9 % 11.5-14.5 Red Cell Distribution Width EUGENIO ([facility]) platelet count, automated 269 10 150-450 Platelet C ount, Automated EUGENIO ([facility]) neutrophils % 74.7 % 36.0-66.0 Above high normal Neutrophils % A THENA ([facility]) lymph % 17.0 % 24.0-44.0 Below low normal Lymph % EUGENIO ( [facility]) mono % 8.0 % 0.0-5.0 Above high normal [place] % EUGENIO ([facility]) eos % 0.0 % 0.0-3.0 Eos % EUGENIO ([facility]) baso % 0.0 % 0.0-1.0 Baso % EUGENIO ([facility]) immature granulocyte % 0.3 % 0-3.0 Immature Gran ulocyte % EUGENIO ([facility]) nucleated red blood cell % 0.0 % 0-0 Nucleated Red Blood Cell % EUGENIO ([facility]) neutrophils # 5.1 10 1.5-8.5 Neutrophils # EUGENIO ( [facility]) lymph # 1.2 10 1.5-5.0 Below low normal Lymph # EUGENIO ( [facility]) mono # 0.5 10 0.0-0.8 [place] # EUGENIO ([facility]) eos # 0.0 10 0.0-0.5 Eos # EUGENIO ([facility]) baso # 0.0 10 0.0-0.2 Baso # EUGENIO ([facility]) ID Date Data Source [id number] 07/22/2020 09:23:00 PM EST EUGENIO ([facility]) Name Value Range Interpretation Code Description Data Pilar rce(s) Supporting Document(s) bedside glucose 170 mg/dL 70-105 Above high normal Bedside Gluco se EUGENIO ([facility]) ID Date Data Source [id number] 07/22/2020 05:48:00 PM EST EUGENIO ([facility]) Name Value Range Interpretation Code Description Data Pilar rce(s) Supporting Document(s) bedside glucose 193 mg/dL 70-105 Above high normal Bedside Gluco se EUGENIO ([facility]) ID Date Data Source [id number] 07/22/2020 01:40:00 PM EST EUGENIO ([facility]) Name Value Range Interpretation Code Description Data Pilar rce(s) Supporting Document(s) bedside glucose 150 mg/dL 70-105 Above high normal Bedside Gluco se EUGENIO ([facility]) ID Date Data Source [id number] 07/22/2020 04:34:00 AM EST EUGENIO ([facility]) Name Value Range Interpretation Code Description Data Pilar rce(s) Supporting Document(s) erythrocyte sedimentation rate 59 mm/HR 0-15 Above high normal Erythrocyte Sedimentation Rate EUGENIO ([facility]) ID Date Data Source [id number] 07/22/2020 04:34:00 AM EST EUGENIO ([facility]) Name Value Range Interpretation Code Description Data Pilar rce(s) Supporting Document(s) C reactive protein quantitativ 10.40 mg/dL 0.00-0.30 Above high normal [facility] Date Data Source [id number] 07/22/2020 04:34:00 AM EST EUGENIO ([facility]) Name Value Range Interpretation Code Description Data Pilar rce(s) Supporting Document(s) glucose, fasting 135 mg/dL 70-100 Above high normal Glucose, Fas ting EUGENIO ([facility]) blood urea nitrogen 15 mg/dL 7-18 Blood Urea Nitro gen EUGENIO ([facility]) creatinine for GFR 0.66 mg/dL 0.70-1.30 Below low normal Creatinine for GFR EUGENIO ([facility]) glomerular filtration rate > 60.0 >60 Glomerula r Filtration Rate EUGENIO ([facility]) sodium level 142 mEq/L 136-145 Sodium Level EUGENIO (No [facility]) potassium serum 4.0 mEq/L 3.5-5.1 Potassium Serum ATHE ([facility]) chloride level 109 mEq/L 98-107 Above high normal Chloride Level [place]A ([facility]) carbon dioxide level 27 mEq/L 21-32 Carbon Dioxide Level [place] ([facility]) anion gap 6 mEq/L 8-16 Below low normal Anion Gap M[place]ETA ( [facility]) calcium level 8.0 mg/dL 8.5-10.1 Below low normal Calcium Level AT [facility]) AST/SGOT 68 U/L 7-37 Above high normal AST/SGOT EUGENIO ([facility]) ALT/SGPT 84 U/L 12-78 Above high normal ALT/SGPT [place] ([facility]) alkaline phosphatase 57 U/L 45-117 Alkaline Phosph atase [place] ([facility]) bilirubin,total 0.9 mg/dL 0.2-1.0 Bilirubin,total ATHE ([facility]) total protein 6.1 gm/dL 6.4-8.2 Below low normal Total Protein AT [facility]) albumin 2.7 gm/dL 3.2-5.2 Below low normal Albumin [place] ( [facility]) albumin/globulin ratio Albumin/globu sandy Ratio [place] ([facility]) ID Date Data Source [id number] 07/22/2020 04:34:00 AM EST EUGENIO ([facility]) Name Value Range Interpretation Code Description Data Pilar rce(s) Supporting Document(s) white blood count 6.9 10 4.0-10.0 White Blood Count EUGENIO ([facility]) red blood count 4.48 10 4.30-6.10 Red Blood Count ATHE NA ([facility]) hemoglobin 12.2 g/dL 13.5-17.5 Below low normal Hemoglobin EUGENIO ( [facility]) hematocrit 38.6 % 42.0-52.0 Below low normal Hematocrit EUGENIO ( [facility]) mean corpuscular volume 86.2 fL 80.0-96.0 Mean Corpusc ular Volume EUGENIO ([facility]) mean corpuscular hemoglobin 27.2 pg 27.0-33.0 Mean Cor puscular Hemoglobin EUGENIO ([facility]) mean corpuscular HGB conc 31.6 g/dL 32.0-36.5 Below low micki l Mean Corpuscular HGB Conc EUGENIO ([facility]) red cell distribution width 13.0 % 11.5-14.5 Red Cell Distribution Width EUGENIO ([facility]) platelet count, automated 180 10 150-450 Platelet C ount, Automated EUGENIO ([facility]) neutrophils % 75.2 % 36.0-66.0 Above high normal Neutrophils % A THENA ([facility]) lymph % 18.3 % 24.0-44.0 Below low normal Lymph % EUGENIO ( [facility]) mono % 5.8 % 0.0-5.0 Above high normal [place] % EUGENIO ([facility]) baso % 0.1 % 0.0-1.0 Baso % EUGENIO ([facility]) eos % 0.0 % 0.0-3.0 Eos % EUGENIO ([facility]) immature granulocyte % 0.6 % 0-3.0 Immature Gran ulocyte % EUGENIO ([facility]) nucleated red blood cell % 0.0 % 0-0 Nucleated Red Blood Cell % EUGENIO ([facility]) neutrophils # 5.2 10 1.5-8.5 Neutrophils # EUGENIO ( [facility]) lymph # 1.3 10 1.5-5.0 Below low normal Lymph # EUGENIO ( [facility]) mono # 0.4 10 0.0-0.8 [place] # EUGENIO ([facility]) eos # 0.0 10 0.0-0.5 Eos # EUGENIO ([facility]) baso # 0.0 10 0.0-0.2 Baso # EUGENIO ([facility]) ID Date Data Source [id number] 07/21/2020 08:15:00 PM EST EUGENIO ([facility]) Name Value Range Interpretation Code Description Data Pilar rce(s) Supporting Document(s) bedside glucose 121 mg/dL 70-105 Above high normal Bedside Gluco se EUGENIO ([facility]) ID Date Data Source [id number] 07/21/2020 05:05:00 PM EST EUGENIO ([facility]) Name Value Range Interpretation Code Description Data Pilar rce(s) Supporting Document(s) bedside glucose 132 mg/dL 70-105 Above high normal Bedside Gluco se EUGENIO ([facility]) ID Date Data Source [id number] 07/21/2020 11:14:00 AM STU BECKER ([facility]) Name Value Range Interpretation Code Description Data Pilar rce(s) Supporting Document(s) bedside glucose 174 mg/dL 70-105 Above high normal Bedside Gluco se EUGENIO ([facility]) ID Date Data Source [id number] 07/21/2020 04:13:00 AM STU BECKER ([facility]) Name Value Range Interpretation Code Description Data Pilar rce(s) Supporting Document(s) glucose, fasting 151 mg/dL 70-100 Above high normal Glucose, Fas ting EUGENIO ([facility]) blood urea nitrogen 14 mg/dL 7-18 Blood Urea Nitro gen EUGENIO ([facility]) creatinine for GFR 0.74 mg/dL 0.70-1.30 Creatinine for GF R EUGENIO ([facility]) glomerular filtration rate > 60.0 >60 Glomerula r Filtration Rate EUGENIO ([facility]) sodium level 141 mEq/L 136-145 Sodium Level EUGENIO ([facility]) chloride level 107 mEq/L 98-107 Chloride Level EUGENIO ([facility]) potassium serum 3.9 mEq/L 3.5-5.1 Potassium Serum ATHE ([facility]) carbon dioxide level 27 mEq/L 21-32 Carbon Dioxide Level EUGENIO ([facility]) anion gap 7 mEq/L 8-16 Below low normal Anion Gap EUGENIO ( [facility]) calcium level 7.9 mg/dL 8.5-10.1 Below low normal Calcium Level AT [facility] ([facility]) AST/SGOT 84 U/L 7-37 Above high normal AST/SGOT [place] ([facility]) ALT/SGPT 107 U/L 12-78 Above high normal ALT/SGPT [place] ([facility]) alkaline phosphatase 53 U/L 45-117 Alkaline Phosph atase EUGENIO ([facility]) bilirubin,total 0.7 mg/dL 0.2-1.0 Bilirubin,total ATHE ([facility]) total protein 5.9 gm/dL 6.4-8.2 Below low normal Total Protein AT [facility] ([facility]) albumin 2.8 gm/dL 3.2-5.2 Below low normal Albumin EUGENIO ( [facility]) albumin/globulin ratio Albumin/globu sandy Ratio [place] ([facility]) ID Date Data Source [id number] 07/21/2020 04:13:00 AM EST [place] ([facility]) Name Value Range Interpretation Code Description Data Pilar rce(s) Supporting Document(s) white blood count 6.1 10 4.0-10.0 White Blood Count EUGENIO ([facility]) red blood count 4.35 10 4.30-6.10 Red Blood Count ATHE ([facility]) hematocrit 37.5 % 42.0-52.0 Below low normal Hematocrit EUGENIO ( [facility]) hemoglobin 12.3 g/dL 13.5-17.5 Below low normal Hemoglobin EUGENIO ( [facility]) mean corpuscular volume 86.2 fL 80.0-96.0 Mean Corpusc ular Volume EUGENIO ([facility]) mean corpuscular hemoglobin 28.3 pg 27.0-33.0 Mean Cor puscular Hemoglobin EUGENIO ([facility]) mean corpuscular HGB conc 32.8 g/dL 32.0-36.5 Mean Corpu scular HGB Conc EUGENIO ([facility]) red cell distribution width 13.0 % 11.5-14.5 Red Cell Distribution Width EUGENIO ([facility]) platelet count, automated 139 10 150-450 Below low micki l Platelet Count, Automated EUGENIO ([facility]) neutrophils % 68.6 % 36.0-66.0 Above high normal Neutrophils % A THENA ([facility]) lymph % 26.8 % 24.0-44.0 Lymph % EUGENIO ([facility]) mono % 4.1 % 0.0-5.0 [place] % EUGENIO ([facility]) eos % 0.0 % 0.0-3.0 Eos % EUGENIO ([facility]) baso % 0.2 % 0.0-1.0 Baso % EUGENIO ([facility]) immature granulocyte % 0.3 % 0-3.0 Immature Gran ulocyte % EUGENIO ([facility]) nucleated red blood cell % 0.0 % 0-0 Nucleated Red Blood Cell % EUGENIO ([facility]) neutrophils # 4.2 10 1.5-8.5 Neutrophils # EUGENIO ( [facility]) lymph # 1.6 10 1.5-5.0 Lymph # EUGENIO ([facility]) mono # 0.3 10 0.0-0.8 [place] # EUGENIO ([facility]) eos # 0.0 10 0.0-0.5 Eos # EUGENIO ([facility]) baso # 0.0 10 0.0-0.2 Baso # EUGENIO ([facility]) ID Date Data Source [id number] 07/20/2020 08:41:00 PM EST EUGENIO ([facility]) Name Value Range Interpretation Code Description Data Pilar rce(s) Supporting Document(s) bedside glucose 160 mg/dL 70-105 Above high normal Bedside Gluco se EUGENIO ([facility]) ID Date Data Source [id number] 07/20/2020 05:55:00 PM EST EUGENIO ([facility]) Name Value Range Interpretation Code Description Data Pilar rce(s) Supporting Document(s) bedside glucose 163 mg/dL 70-105 Above high normal Bedside Gluco se EUGENIO ([facility]) ID Date Data Source [id number] 07/20/2020 11:40:00 AM EST EUGENIO ([facility]) Name Value Range Interpretation Code Description Data Pilar rce(s) Supporting Document(s) bedside glucose 175 mg/dL 70-105 Above high normal Bedside Gluco se [place]GENIO ([facility]) ID Date Data Source [id number] 07/20/2020 04:47:00 AM EST EUGENIO ([facility]) Name Value Range Interpretation Code Description Data Pilar rce(s) Supporting Document(s) nt-pro BNP 19 pg/mL <125 Nt-pro BNP [place]GENIO ([facility]) ID Date Data Source [id number] 07/20/2020 04:47:00 AM EST EUGENIO ([facility]) Name Value Range Interpretation Code Description Data Pilar rce(s) Supporting Document(s) D-dimer quant 877.68 NG/mL <500 Above high normal D-dimer Quant EUGENIO ([facility]) ID Date Data Source [id number] 07/20/2020 04:47:00 AM EST EUGENIO ([facility]) Name Value Range Interpretation Code Description Data Pilar rce(s) Supporting Document(s) erythrocyte sedimentation rate 41 mm/HR 0-15 Above high normal Erythrocyte Sedimentation Rate EUGENIO ([facility]) ID Date Data Source [id number] 07/20/2020 04:47:00 AM EST EUGENIO ([facility]) Name Value Range Interpretation Code Description Data Pilar rce(s) Supporting Document(s) white blood count 4.8 10 4.0-10.0 White Blood Count EUGENIO ([facility]) hemoglobin 13.0 g/dL 13.5-17.5 Below low normal Hemoglobin EUGENIO ( [facility]) red blood count 4.62 10 4.30-6.10 Red Blood Count ATHE ([facility]) mean corpuscular volume 87.2 fL 80.0-96.0 Mean Corpusc ular Volume EUGENIO ([facility]) hematocrit 40.3 % 42.0-52.0 Below low normal Hematocrit EUGENIO ( [facility]) mean corpuscular HGB conc 32.3 g/dL 32.0-36.5 Mean Corpu scular HGB Conc EUGENIO ([facility]) mean corpuscular hemoglobin 28.1 pg 27.0-33.0 Mean Cor puscular Hemoglobin EUGENIO ([facility]) platelet count, automated 126 10 150-450 Below low micki l Platelet Count, Automated EUGENIO ([facility]) red cell distribution width 12.8 % 11.5-14.5 Red Cell Distribution Width EUGENIO ([facility]) neutrophils % 67.5 % 36.0-66.0 Above high normal Neutrophils % A THENA ([facility]) lymph % 28.2 % 24.0-44.0 Lymph % EUGENIO ([facility]) mono % 4.1 % 0.0-5.0 [place] % EUGENIO ([facility]) baso % 0.0 % 0.0-1.0 Baso % EUGENIO ([facility]) eos % 0.0 % 0.0-3.0 Eos % EUGENIO ([facility]) immature granulocyte % 0.2 % 0-3.0 Immature Gran ulocyte % EUGENIO ([facility]) nucleated red blood cell % 0.0 % 0-0 Nucleated Red Blood Cell % EUGENIO ([facility]) lymph # 1.4 10 1.5-5.0 Below low normal Lymph # EUGENIO ( [facility]) neutrophils # 3.3 10 1.5-8.5 Neutrophils # EUGENIO ( [facility]) mono # 0.2 10 0.0-0.8 [place] # EUGENIO ([facility]) eos # 0.0 10 0.0-0.5 Eos # EUGENIO ([facility]) baso # 0.0 10 0.0-0.2 Baso # EUGENIO ([facility]) ID Date Data Source [id number] 07/20/2020 04:47:00 AM EST [place] ([facility]) Name Value Range Interpretation Code Description Data Pilar rce(s) Supporting Document(s) C reactive protein quantitativ 5.13 mg/dL 0.00-0.30 Above high normal C Reactive Protein Quantitativ [place] ([facility]) ID Date Data Source [id number] 07/20/2020 04:47:00 AM EST EUGENIO ([facility]) Name Value Range Interpretation Code Description Data Pilar rce(s) Supporting Document(s) ferritin 1019 NG/mL 26-388 Above high normal Ferritin [place] ([facility]) ID Date Data Source [id number] 07/20/2020 04:47:00 AM EST EUGENIO ([facility]) Name Value Range Interpretation Code Description Data Pilar rce(s) Supporting Document(s) glucose, fasting 179 mg/dL 70-100 Above high normal Glucose, Fas ting EUGENIO ([facility]) creatinine for GFR 0.76 mg/dL 0.70-1.30 Creatinine for GF R EUGENIO ([facility]) blood urea nitrogen 9 mg/dL 7-18 Blood Urea Nitro gen [place]IO ([facility]) glomerular filtration rate > 60.0 >60 Glomerula r Filtration Rate EUGENIO ([facility]) sodium level 136 mEq/L 136-145 Sodium Level EUGENIO ([facility]) potassium serum 3.9 mEq/L 3.5-5.1 Potassium Serum ATHE ([facility]) chloride level 104 mEq/L 98-107 Chloride Level [place] ([facility]) carbon dioxide level 28 mEq/L 21-32 Carbon Dioxide Level [place] ([facility]) anion gap 4 mEq/L 8-16 Below low normal Anion Gap [place] ( [facility]) calcium level 8.2 mg/dL 8.5-10.1 Below low normal Calcium Level AT [facility]) AST/SGOT 105 U/L 7-37 Above high normal AST/SGOT [place]IO ([facility]) ALT/SGPT 139 U/L 12-78 Above high normal ALT/SGPT [place] ([facility]) alkaline phosphatase 56 U/L 45-117 Alkaline Phosph atase [place] ([facility]) bilirubin,total 0.6 mg/dL 0.2-1.0 Bilirubin,total ATHE ([facility]) albumin 3.0 gm/dL 3.2-5.2 Below low normal Albumin [place] ( [facility]) total protein 6.2 gm/dL 6.4-8.2 Below low normal Total Protein AT [facility] ([facility]) albumin/globulin ratio Albumin/globu sandy Ratio [place] ([facility]) ID Date Data Source [id number] 07/19/2020 09:56:00 PM EST [place] ([facility]) Name Value Range Interpretation Code Description Data Pilar rce(s) Supporting Document(s) bedside glucose 201 mg/dL 70-105 Above high normal Bedside Gluco se [place] ([facility]) ID Date Data Source [id number] 07/19/2020 06:14:00 PM EST EUGENIO ([facility]) Name Value Range Interpretation Code Description Data Pilar rce(s) Supporting Document(s) MRSA PCR screen not detected negative MRSA PCR Screen AT [facility] ([facility]) ID Date Data Source [id number] 07/19/2020 06:12:00 PM EST EUGENIO ([facility]) Name Value Range Interpretation Code Description Data Pilar rce(s) Supporting Document(s) bedside glucose 155 mg/dL 70-105 Above high normal Bedside Gluco se EUGENIO ([facility]) ID Date Data Source [id number] 07/19/2020 11:34:00 AM EST EUGENIO ([facility]) Name Value Range Interpretation Code Description Data Pilar rce(s) Supporting Document(s) bedside glucose 215 mg/dL 70-105 Above high normal Bedside Gluco se EUGENIO ([facility]) ID Date Data Source [id number] 07/19/2020 09:35:00 AM EST EUGENIO ([facility]) Name Value Range Interpretation Code Description Data Pilar rce(s) Supporting Document(s) anti-mitochondrial antibody <20.0 0.0-20.0 Anti-[place] ochondrial Antibody [place] ([facility]) ID Date Data Source [id number] 07/19/2020 09:35:00 AM EST EUGENIO ([facility]) Name Value Range Interpretation Code Description Data Pilar rce(s) Supporting Document(s) IgG subclass 1 541 mg/dL 248-810 IgG Subclass 1 EUGENIO ([facility]) IgG subclass 2 227 mg/dL 130-555 IgG Subclass 2 EUGENIO ([facility]) IgG subclass 3 60 mg/dL 15-102 IgG Subclass 3 EUGENIO ([facility]) IgG subclass 4 27 mg/dL 2-96 IgG Subclass 4 EUGENIO ([facility]) IgG serum (part of subclasses) 936 mg/dL 603-1613 IgG Serum (Part of Subclasses) [place] ([facility]) ID Date Data Source [id number] 07/19/2020 09:35:00 AM EST [place] ([facility]) Name Value Range Interpretation Code Description Data Pilar rce(s) Supporting Document(s) liver-kidney microsomal marcy <20.1 0.0-20.0 Liver-ki dney Microsomal Marcy [place] ([facility]) ID Date Data Source [id number] 07/19/2020 09:35:00 AM EST [place] ([facility]) Name Value Range Interpretation Code Description Data Pilar rce(s) Supporting Document(s) IBRAHIMA (hep2) positive . Abnormal (applies to non-numeric res ults) IBRAHIMA (Hep2) [place] ([facility]) IBRAHIMA homogeneous pattern tnp . IBRAHIMA Homogene ous Pattern [place] ([facility]) IBRAHIMA nucleolar pattern tnp . IBRAHIMA Nucleolar Pattern [place] ([facility]) IBRAHIMA speckled pattern 1:80 . IBRAHIMA Speckled Pa ttern [place] ([facility]) IBRAHIMA centromere pattern tnp . IBRAHIMA Centromer e Pattern EUGENIO ([facility]) IBRAHIMA spindle apparatus pattern tnp . IBRAHIMA Sp indle Apparatus Pattern EUGENIO ([facility]) IBRAHIMA nuclear membrane pattern tnp . IBRAHIMA Nuc lear Membrane Pattern EU[place]IO ([facility]) IBRAHIMA midbody pattern tnp . IBRAHIMA Midbody Pa ttern [place] ([facility]) IBRAHIMA nuclear dot pattern tnp . IBRAHIMA Nuclea r Dot Pattern [place] ([facility]) IBRAHIMA centriole pattern tnp . IBRAHIMA Centriole Pattern [place]IO ([facility]) IBRAHIMA pcna pattern tnp . IBRAHIMA Pcna Pattern [place] ([facility]) IBRAHIMA note . IBRAHIMA Note EUGENIO ([facility]) ID Date Data Source [id number] 07/19/2020 09:35:00 AM EST [place] ([facility]) Name Value Range Interpretation Code Description Data Pilar rce(s) Supporting Document(s) ebv viral capsid Ag IgM <36.0 0.0-35.9 Ebv Viral Ca psid Ag IgM [facility]) ID Date Data Source [id number] 07/19/2020 09:35:00 AM EST [facility]) Name Value Range Interpretation Code Description Data Pilar rce(s) Supporting Document(s) ebv viral capsid Ag IgG 97.4 U/mL 0.0-17.9 Above high normal Ebv Viral Capsid Ag IgG [facility]) ID Date Data Source [id number] 07/19/2020 09:35:00 AM EST [facility]) Name Value Range Interpretation Code Description Data Pilar rce(s) Supporting Document(s) ebv PCR qual whole bld negative negative Ebv PCR Qual Whole Bld [facility]) ID Date Data Source [id number] 07/19/2020 09:35:00 AM EST [facility]) Name Value Range Interpretation Code Description Data Pilar rce(s) Supporting Document(s) anti-smooth muscle antibody 9 units 0-19 Anti-smo oth Muscle Antibody [place] ([facility]) ID Date Data Source [id number] 07/19/2020 09:35:00 AM EST [facility]) Name Value Range Interpretation Code Description Data Pilar rce(s) Supporting Document(s) ebv viral capsid Ag IgG 96.6 U/mL 0.0-17.9 Above high normal Ebv Viral Capsid Ag IgG [place] ([facility]) ebv viral capsid Ag IgM <36.0 0.0-35.9 Ebv Viral Ca psid Ag IgM [place] ([facility]) ebv interpretation . Ebv Interpretatio n [place]GENIO ([facility]) ebv Ab to nuclear antigen 554.0 U/mL 0.0-17.9 Above high norm al Ebv Ab to Nuclear Antigen EUGENIO ([facility]) ID Date Data Source [id number] 07/19/2020 09:35:00 AM EST EUGENIO ([facility]) Name Value Range Interpretation Code Description Data Pilar rce(s) Supporting Document(s) D-dimer quant 671.07 NG/mL <500 Above high normal D-dimer Quant EUGENIO ([facility]) ID Date Data Source [id number] 07/19/2020 09:35:00 AM EST EUGENIO ([facility]) Name Value Range Interpretation Code Description Data Pilar rce(s) Supporting Document(s) fibrinogen 394 mg/dL 221-452 Fibrinogen [place] ([facility]) ID Date Data Source [id number] 07/19/2020 09:35:00 AM EST EUGENIO ([facility]) Name Value Range Interpretation Code Description Data Pilar rce(s) Supporting Document(s) partial thromboplastin time 35.2 seconds 24.2-38.5 Partial Thromboplastin Time EUGENIO ([facility]) ID Date Data Source [id number] 07/19/2020 09:35:00 AM EST EUGENIO ([facility]) Name Value Range Interpretation Code Description Data Pilar rce(s) Supporting Document(s) prothrombin time 14.6 seconds 12.5-14.3 Above high normal Prothrombi n Time EUGENIO ([facility]) INR Inr EUGENIO ([facility]) ID Date Data Source [id number] 07/19/2020 09:35:00 AM EST EUGENIO ([facility]) Name Value Range Interpretation Code Description Data Pilar rce(s) Supporting Document(s) mono reflex ebv comp negative negative [place] Reflex Ebv Comp [place] ([facility]) ID Date Data Source [id number] 07/19/2020 09:35:00 AM EST [place] ([facility]) Name Value Range Interpretation Code Description Data Pilar rce(s) Supporting Document(s) acetaminophen level < 2.0 10.0-30.0 Below low normal Acetaminop hen Level [facility]) ID Date Data Source [id number] 07/19/2020 09:35:00 AM EST [facility]) Name Value Range Interpretation Code Description Data Pilar rce(s) Supporting Document(s) salicylate level < 1.7 5.0-30.0 Below low normal Salicylate Le maricel [facility]) ID Date Data Source [id number] 07/19/2020 09:35:00 AM EST [facility]) Name Value Range Interpretation Code Description Data Pilar rce(s) Supporting Document(s) CPK creatine phosphokinase 114 U/L 39-308 CPK Creat ine Phosphokinase [facility]) ID Date Data Source [id number] 07/19/2020 09:28:00 AM EST [facility]) Name Value Range Interpretation Code Description Data Pilar rce(s) Supporting Document(s) mycoplasma pneumoniae IgM <770 0-769 Mycoplasma Pneumoniae IgM [place] ([facility]) mycoplasma pneumoniae IgG 436 U/mL 0-99 Above high norm al Mycoplasma Pneumoniae IgG [facility]) ID Date Data Source [id number] 07/19/2020 09:28:00 AM EST [facility]) Name Value Range Interpretation Code Description Data Pilar rce(s) Supporting Document(s) chlamydia psittaci IgG < 1:100 Chlamydia Psi ttaci IgG EUGENIO ([facility]) chlamydia trachomatis IgM < 1:10 < 1:10 Chlamydia Trachomatis IgM [place]IO ([facility]) chlamydia trachomatis IgG < 1:100 Chlamydia Trachomatis IgG [place]IO ([facility]) chlamydia pneumoniae IgG 1:100 < 1:100 Abnorma l (applies to non-numeric results) Chlamydia Pneumoniae IgG EUGENIO ([facility]) chlamydia psittaci IgM < 1:10 < 1:10 Chlamydia Psi ttaci IgM EU[place]IO ([facility]) chlamydia pneumoniae IgM < 1:10 < 1:10 Chlamydia P neumoniae IgM [place] ([facility]) ID Date Data Source [id number] 07/19/2020 09:28:00 AM EST [place] ([facility]) Name Value Range Interpretation Code Description Data Pilar rce(s) Supporting Document(s) L pneumophilia 1-6 IgM < 1:16 < 1:16 L Pneumophili a 1-6 IgM [place] ([facility]) ID Date Data Source [id number] 07/19/2020 09:28:00 AM EST [facility]) Name Value Range Interpretation Code Description Data Pilar rce(s) Supporting Document(s) L pneumophilia 1-6 IgG <1:128 <1:128 L Pneumophili a 1-6 IgG EUGENIO ([facility]) ID Date Data Source [id number] 07/19/2020 05:28:00 AM EST [facility]) Name Value Range Interpretation Code Description Data Pilar rce(s) Supporting Document(s) hepatitis B core antibody IgG negative negative Hepati tis B Core Antibody IgG [facility]) ID Date Data Source [id number] 07/19/2020 05:28:00 AM EST [facility]) Name Value Range Interpretation Code Description Data Pilar rce(s) Supporting Document(s) hepatitis B surf Ab quant <3.1 immunity>9.9 Below low micki l Hepatitis B Surf Ab Quant [place] ([facility]) ID Date Data Source [id number] 07/19/2020 05:28:00 AM EST [place] ([facility]) Name Value Range Interpretation Code Description Data Pilar rce(s) Supporting Document(s) hepatitis B surface antigen negative negative Hepatiti s B Surface Antigen [place] ([facility]) hepatitis C virus marcy index 0.1 index <0.8 Hepatiti s C Virus Marcy Index [place] ([facility]) hepatitis B core antibody IgM negative negative Hepati tis B Core Antibody IgM [place] ([facility]) hepatitis A antibody IgM negative negative Hepatitis a Antibody IgM [place] ([facility]) ID Date Data Source [id number] 07/19/2020 05:28:00 AM EST [place] ([facility]) Name Value Range Interpretation Code Description Data Pilar rce(s) Supporting Document(s) C reactive protein quantitativ 2.43 mg/dL 0.00-0.30 Above high normal C Reactive Protein Quantitativ [place] ([facility]) ID Date Data Source [id number] 07/19/2020 05:28:00 AM EST [place] ([facility]) Name Value Range Interpretation Code Description Data Pilar rce(s) Supporting Document(s) hepatitis B surface antibody negative positive Hepatit is B Surface Antibody [place] ([facility]) ID Date Data Source [id number] 07/19/2020 05:28:00 AM EST [facility]) Name Value Range Interpretation Code Description Data Pilar rce(s) Supporting Document(s) glucose, fasting 252 mg/dL 70-100 Above high normal Glucose, Fas ting [place] ([facility]) blood urea nitrogen 10 mg/dL 7-18 Blood Urea Nitro gen EUGENIO ([facility]) creatinine for GFR 0.88 mg/dL 0.70-1.30 Creatinine for GF R EUGENIO ([facility]) glomerular filtration rate > 60.0 >60 Glomerula r Filtration Rate EU[place]IO ([facility]) potassium serum 3.6 mEq/L 3.5-5.1 Potassium Serum ATHE NA ([facility]) sodium level 136 mEq/L 136-145 Sodium Level EUGENIO (No [facility]) carbon dioxide level 26 mEq/L 21-32 Carbon Dioxide Level EUGENIO ([facility]) chloride level 104 mEq/L 98-107 Chloride Level [place] ([facility]) calcium level 7.5 mg/dL 8.5-10.1 Below low normal Calcium Level AT [facility]) anion gap 6 mEq/L 8-16 Below low normal Anion Gap EUGENIO ( [facility]) AST/SGOT 130 U/L 7-37 Above high normal AST/SGOT [place] ([facility]) ALT/SGPT 184 U/L 12-78 Above high normal ALT/SGPT [place] ([facility]) alkaline phosphatase 64 U/L 45-117 Alkaline Phosph atase EUGENIO ([facility]) total protein 6.5 gm/dL 6.4-8.2 Total Protein EUGENIO ( [facility]) bilirubin,total 0.6 mg/dL 0.2-1.0 Bilirubin,total ATHE ([facility]) albumin/globulin ratio Albumin/globu sandy Ratio EUGENIO ([facility]) albumin 3.3 gm/dL 3.2-5.2 Albumin EUGENIO ([facility]) ID Date Data Source [id number] 07/19/2020 05:28:00 AM EST EUGENIO ([facility]) Name Value Range Interpretation Code Description Data Pilar rce(s) Supporting Document(s) erythrocyte sedimentation rate 20 mm/HR 0-15 Above high normal Erythrocyte Sedimentation Rate EUGENIO ([facility]) ID Date Data Source [id number] 07/19/2020 05:28:00 AM EST EUGENIO ([facility]) Name Value Range Interpretation Code Description Data Pilar rce(s) Supporting Document(s) white blood count 4.1 10 4.0-10.0 White Blood Count EUGENIO ([facility]) red blood count 4.87 10 4.30-6.10 Red Blood Count ATHE NA ([facility]) hemoglobin 13.2 g/dL 13.5-17.5 Below low normal Hemoglobin EUGENIO ( [facility]) hematocrit 41.5 % 42.0-52.0 Below low normal Hematocrit EUGENIO ( [facility]) mean corpuscular hemoglobin 27.1 pg 27.0-33.0 Mean Cor puscular Hemoglobin EUGENIO ([facility]) mean corpuscular volume 85.2 fL 80.0-96.0 Mean Corpusc ular Volume EUGENIO ([facility]) mean corpuscular HGB conc 31.8 g/dL 32.0-36.5 Below low micki l Mean Corpuscular HGB Conc EUGENIO ([facility]) red cell distribution width 12.5 % 11.5-14.5 Red Cell Distribution Width EUGENIO ([facility]) platelet count, automated 108 10 150-450 Below low micki l Platelet Count, Automated EU[place]IO ([facility]) neutrophils % 67.4 % 36.0-66.0 Above high normal Neutrophils % A THENA ([facility]) lymph % 27.3 % 24.0-44.0 Lymph % EUGENIO ([facility]) eos % 0.0 % 0.0-3.0 Eos % EUGENIO ([facility]) mono % 4.9 % 0.0-5.0 [place] % EUGENIO ([facility]) immature granulocyte % 0.2 % 0-3.0 Immature Gran ulocyte % EUGENIO ([facility]) baso % 0.2 % 0.0-1.0 Baso % EUGENIO ([facility]) nucleated red blood cell % 0.0 % 0-0 Nucleated Red Blood Cell % EUGENIO ([facility]) neutrophils # 2.8 10 1.5-8.5 Neutrophils # EUGENIO ( [facility]) mono # 0.2 10 0.0-0.8 [place] # EUGENIO ([facility]) lymph # 1.1 10 1.5-5.0 Below low normal Lymph # EUGENIO ( [facility]) eos # 0.0 10 0.0-0.5 Eos # EUGENIO ([facility]) baso # 0.0 10 0.0-0.2 Baso # EUGENIO ([facility]) ID Date Data Source [id number] 07/19/2020 05:25:00 AM EST EUGENIO ([facility]) Name Value Range Interpretation Code Description Data Pilar rce(s) Supporting Document(s) procalcitonin Procalcitonin EUGENIO ([facility]) ID Date Data Source [id number] 07/18/2020 11:49:00 PM EST [facility] Name Value Range Interpretation Code Description Data Pilar rce(s) Supporting Document(s) SARS-CoV-2 (COVID 19) [facility] This lab was ordered by [facility] a nd reported by [facility]. ID Date Data Source [id number] 07/18/2020 11:49:00 PM EST EUGEN[place] ([facility]) Name Value Range Interpretation Code Description Data Pilar rce(s) Supporting Document(s) ID Date Data Source [id number] 07/18/2020 11:49:00 PM EST EUGENIO ([facility]) Name Value Range Interpretation Code Description Data Pilar rce(s) Supporting Document(s) ABG partial pressure CO2 44.7 mmHg 35.0-45.0 ABG Partial Pressure CO2 EUGENIO ([facility]) ABG pH (arterial) 7.368 units 7.350-7.450 ABG pH (Arterial ) [place] ([facility]) ABG partial pressure O2 85.3 mmHg 75.0-100.0 ABG Partial Pressure O2 EU[place] ([facility]) ABG HCO3 25.1 mEq/L 22.0-26.0 Abg Hco3 [place] ([facility]) ABG total CO2 26.5 mEq/L 22.0-29.0 ABG Total CO2 EU[place] ( [facility]) ABG standard HCO3 24.1 mEq/L 22.0-26.0 ABG Standard HCO3 [place] ([facility]) ABG base excess -2.0-2.0 ABG Base Excess ATHE NA ([facility]) ABG O2 saturation 96.5 % 95.0-99.0 ABG O2 Saturation [place] ([facility]) ID Date Data Source [id number] 07/18/2020 11:34:00 PM EST [place] ([facility]) Name Value Range Interpretation Code Description Data Pilar rce(s) Supporting Document(s) bedside glucose 178 mg/dL 70-105 Above high normal Bedside Gluco se [facility]) ID Date Data Source [id number] 07/18/2020 06:00:00 PM EST [facility] Name Value Range Interpretation Code Description Data Pilar rce(s) Supporting Document(s) SARS coronavirus 2 RNA [Presence] in Res piratory specimen by JUJU with probe detection [facility] This lab was ordered by [facility] a nd reported by [facility]. ID Date Data Source [id number] 07/18/2020 06:00:00 PM EST [place] ([facility]) Name Value Range Interpretation Code Description Data Pilar rce(s) Supporting Document(s) influenza A amplification negative negative Influenza a Amplification [place] ([facility]) influenza B amplification negative negative Influenza B Amplification [place] ([facility]) RSV amplification negative negative RSV Amplification [place] ([facility]) sars covid-19 amplification negative negative Sars Cov id-19 Amplification [place] ([facility]) ID Date Data Source [id number] 07/18/2020 05:34:00 PM EST [place] ([facility]) Name Value Range Interpretation Code Description Data Pilar rce(s) Supporting Document(s) ID Date Data Source [id number] 07/18/2020 05:33:00 PM EST [place] ([facility]) Name Value Range Interpretation Code Description Data Pilar rce(s) Supporting Document(s) blood urea nitrogen 9 mg/dL 7-18 Blood Urea Nitro gen EUGENIO ([facility]) creatinine for GFR 1.05 mg/dL 0.70-1.30 Creatinine for GF R [place] ([facility]) glucose, fasting 276 mg/dL 70-100 Above high normal Glucose, Fas ting [place] ([facility]) sodium level 137 mEq/L 136-145 Sodium Level EUGENIO (No [facility]) glomerular filtration rate > 60.0 >60 Glomerula r Filtration Rate EUGENIO ([facility]) carbon dioxide level 28 mEq/L 21-32 Carbon Dioxide Level [place] ([facility]) potassium serum 3.5 mEq/L 3.5-5.1 Potassium Serum ATH NA ([facility]) chloride level 101 mEq/L 98-107 Chloride Level [place] ([facility]) anion gap 8 mEq/L 8-16 Anion Gap EUGENIO ([facility]) calcium level 8.0 mg/dL 8.5-10.1 Below low normal Calcium Level AT [place] ([facility]) ID Date Data Source [id number] 07/18/2020 05:33:00 PM EST [place] ([facility]) Name Value Range Interpretation Code Description Data Pilar rce(s) Supporting Document(s) AST/SGOT 158 U/L 7-37 Above high normal AST/SGOT [place] ([facility]) ALT/SGPT 218 U/L 12-78 Above high normal ALT/SGPT [place] ([facility]) alkaline phosphatase 70 U/L 45-117 Alkaline Phosph atase [place] ([facility]) bilirubin,total 0.6 mg/dL 0.2-1.0 Bilirubin,total ATHE NA ([facility]) total protein 7.2 gm/dL 6.4-8.2 Total Protein EUGENIO ( [facility]) bilirubin,direct 0.3 mg/dL 0.0-0.2 Above high normal Bilirubin,di rect EUGENIO ([facility]) albumin 3.8 gm/dL 3.2-5.2 Albumin EUGENIO ([facility]) albumin/globulin ratio Albumin/globu sandy Ratio EUGENIO ([facility]) ID Date Data Source [id number] 07/18/2020 05:33:00 PM EST [place] ([facility]) Name Value Range Interpretation Code Description Data Pilar rce(s) Supporting Document(s) lactic acid sepsis protocol 2.0 mmol/L 0.4-2.0 Lactic A saima Sepsis Protocol EUGENIO ([facility]) ID Date Data Source [id number] 07/18/2020 05:33:00 PM EST EU[place]IO ([facility]) Name Value Range Interpretation Code Description Data Pilar rce(s) Supporting Document(s) red blood count 5.23 10 4.30-6.10 Red Blood Count ATHE ([facility]) white blood count 3.3 10 4.0-10.0 Below low normal White Blood Count EUGENIO ([facility]) hematocrit 44.7 % 42.0-52.0 Hematocrit EUGENIO ([facility]) mean corpuscular volume 85.5 fL 80.0-96.0 Mean Corpusc ular Volume EUGENIO ([facility]) hemoglobin 14.4 g/dL 13.5-17.5 Hemoglobin EUGENIO ([facility]) red cell distribution width 12.4 % 11.5-14.5 Red Cell Distribution Width EUGENIO ([facility]) mean corpuscular hemoglobin 27.5 pg 27.0-33.0 Mean Cor puscular Hemoglobin EUGENIO ([facility]) mean corpuscular HGB conc 32.2 g/dL 32.0-36.5 Mean Corpu scular HGB Conc [place] ([facility]) lymph % 29.4 % 24.0-44.0 Lymph % [place] ([facility]) platelet count, automated 114 10 150-450 Below low micki l Platelet Count, Automated [place] ([facility]) neutrophils % 64.2 % 36.0-66.0 Neutrophils % [place] ( [facility]) baso % 0.0 % 0.0-1.0 Baso % [place] ([facility]) mono % 5.8 % 0.0-5.0 Above high normal [place] % [place] ([facility]) eos % 0.0 % 0.0-3.0 Eos % [place] ([facility]) neutrophils # 2.1 10 1.5-8.5 Neutrophils # [place] ( [facility]) nucleated red blood cell % 0.0 % 0-0 Nucleated Red Blood Cell % [place] ([facility]) immature granulocyte % 0.6 % 0-3.0 Immature Gran ulocyte % [place] ([facility]) mono # 0.2 10 0.0-0.8 [place] # [place] ([facility]) eos # 0.0 10 0.0-0.5 Eos # [place] ([facility]) baso # 0.0 10 0.0-0.2 Baso # [place] ([facility]) lymph # 1.0 10 1.5-5.0 Below low normal Lymph # [place] ( [facility]) ID Date Data Source [id number] 07/15/2020 11:34:00 PM EST [facility] Name Value Range Interpretation Code Description Data Pilar rce(s) Supporting Document(s) SARS coronavirus 2 RNA [Presence] in Res piratory specimen by JUJU with probe detection [facility] This lab was ordered by [facility] a nd reported by [facility]. ID Date Data Source [id number] 07/11/2020 09:28:00 PM EST [place] ([facility]) Name Value Range Interpretation Code Description Data Pilar rce(s) Supporting Document(s) influenza A amplification negative negative Influenza a Amplification [place] ([facility]) sars covid-19 amplification negative negative Sars Cov id-19 Amplification [place] ([facility]) influenza B amplification negative negative Influenza B Amplification EUGENIO ([facility]) RSV amplification negative negative RSV Amplification EUGENIO ([facility]) ID Date Data Source [id number] 07/11/2020 09:28:00 PM EST [facility] Name Value Range Interpretation Code Description Data Pilar rce(s) Supporting Document(s) SARS coronavirus 2 RNA [Presence] in Res piratory specimen by JUJU with probe detection [facility] This lab was ordered by [facility] a nd reported by [facility]. ID Date Data Source [id number] 06/19/2020 12:00:00 AM EST [place] ([facility]) Name Value Range Interpretation Code Description Data Pilar rce(s) Supporting Document(s) Hemoglobin A1c/Hemoglobin.total in Blood 10.8 % Above high normal Hba1C EU[place] ([facility]) Procedure Social History Code Duration Value Status Description Data Source(s ) Smoking 11/02/2020 12:00:00 AM EDT Unknown if ever smoked comp leted Unknown if ever smoked [facility] ([facility]) Smoking 10/26/2020 12:00:00 AM EDT Unknown if ever smoked comp leted Unknown if ever smoked [facility] ([facility]) Smoking 10/22/2020 12:00:00 AM EDT Unknown if ever smoked comp leted Unknown if ever smoked [facility] ([facility]) Smoking 10/16/2020 12:00:00 AM EDT Unknown if ever smoked comp leted Unknown if ever smoked [facility] ([facility]) 08/24/2020 12:00:00 AM EST Quit completed Quit MEDENT ([facility], ) Vital Signs ID Date Data Source [id number] Name Value Range Interpretation Code Description Data Source(s) Systolic blood pressure 122 mm[Hg] 122 mm[Hg] M EDENT ([facility], ) Diastolic blood pressure 72 mm[Hg] 72 mm[Hg] MEDENT ([facility]) Heart rate 82 /min 82 /min [facility] ([facility]) Oxygen saturation in Arterial blood by Pulse oximetry 98 % 98 % [facility] ([facility]) Body temperature 96.8 [degF] 96.8 [degF] [facility] ([facility]) Body height 69 [in_i] 69 [in_i] [facility] ([facility]) 5'9" Body weight 197.00 [lb_av] 197.00 [lb_av] MEDEN T ([facility]) Body mass index (BMI) [Ratio] 29.1 kg/m2 29.1 k g/m2 [facility] ([facility]) [place] body weight 160 [lb_av] 160 [lb_av] MEDEN T ([facility]) Body weight 89.359 kg 89.359 kg [facility] ([facility]) Body surface area Derived from formula 2.05 m2 2.05 m2 [facility] ([facility]) Systolic blood pressure 118 mm[Hg] 118 mm[Hg] [facility] Diastolic blood pressure 74 mm[Hg] 74 mm[Hg] [facility] ([facility]) Heart rate 69 /min 69 /min [facility] ([facility]) Oxygen saturation in Arterial blood by Pulse oximetry 96 % 96 % [facility] ([facility]) Body temperature 96.3 [degF] 96.3 [degF] [facility] ([facility]) Body height 69 [in_i] 69 [in_i] [facility] ([facility]) 5'9" Body weight 198.38 [lb_av] 198.38 [lb_av] MEDEN T ([facility]) Body mass index (BMI) [Ratio] 29.3 kg/m2 29.3 k g/m2 [facility] ([facility]) [place] body weight 160 [lb_av] 160 [lb_av] MEDEN T ([facility]) Body weight 89.983 kg 89.983 kg [facility] Body surface area Derived from formula 2.06 m2 2.06 m2 [facility] ([facility], ) Body mass index (BMI) [Ratio] 30 kg/m2 30 kg/ m2 EU[place]IO ([facility]) Diastolic blood pressure 80 mm[Hg] 80 mm[Hg] EUGENIO ([facility]) Body height 68 [in_i] 68 [in_i] EUGENIO ([facility]) Systolic blood pressure 123 mm[Hg] 123 mm[Hg] A THENA ([facility]) Body weight 3158.4 [oz_av] 3158.4 [oz_av] ATHMAYRA A ([facility]) Patient Treatment Plan of Care Planned Activity Planned Date Details Description Data Source (s) Sucralfate 1000 MG Oral Tablet EUGENIO ([facility]) Metformin hydrochloride 500 MG Oral Tablet EUGENIO ([facility]) Acetaminophen 325 MG / Hydrocodone Bitartrate 5 MG Oral Tablet EUGENIO ([facility]) first mouthwash blm suspension SWISH AND SPIT 10 ML FOUR TIMES A DAY NEEDED FOR MUCOSITIS EUGENIO ([facility]) benzonatate 100 MG Oral Capsule EUGENIO ([facility]) Amoxicillin 875 MG / Clavulanate 125 MG Oral Tablet EUGENIO ([facility])
--- OUTSIDE RECORDS SUMMARY | 2021-05-31 02:27 | CCD ---
Author Author [facility] Organization [facility] Address Unknown Phone Unavailable Care Team Providers [facility] Geodetic Advisor Name Role Phone Eloina Ortega MD Unavailable [...] MD Unavailable Unavailable Lily De La Garza OYSTER OPENER OYSTER OPENER Unavailable Unavailable Tana, Fabiola Unavailable Unavailable Tana, [...] Chandler MD Unavailable Unavailable Frederic, A Lily OYSTER OPENER Unavailable Unavailable Frederic, A Lily OYSTER OPENER Unavailable Unavailable Frederic, A Lily OYSTER OPENER Unavailable Unavailable Frederic, A Lily OYSTER OPENER Unavailable Unavailable Frederic, A Lily OYSTER OPENER Unavailable Unavailable Frederic, A Lily OYSTER OPENER Unavailable Unavailable Frederic, A Lily OYSTER OPENER Unavailable Unavailable Frederic, A Lily OYSTER OPENER Unavailable Unavailable Frederic, A Lily OYSTER OPENER Unavailable Unavailable Frederic, A Lily OYSTER OPENER Unavailable Unavailable Frederic, A Lily OYSTER OPENER Unavailable Unavailable Frederic, A Lily OYSTER OPENER Unavailable Unavailable Freedric, A Lily OYSTER OPENER Unavailable Unavailable Frederic, A Lily OYSTER OPENER Unavailable Unavailable Frederic, A Lily OYSTER OPENER Unavailable Unavailable Frederic, A Lily OYSTER OPENER Unavailable Unavailable Frederic, A Lily OYSTER OPENER Unavailable Unavailable Frederic, A Lily OYSTER OPENER Unavailable Unavailable Frederic, A Lily OYSTER OPENER Unavailable Unavailable Frederic, A Lily OYSTER OPENER Unavailable Unavailable Frederic, A Liyl OYSTER OPENER Unavailable Unavailable Frederic, A Lily OYSTER OPENER Unavailable Unavailable Frederic, A Lily OYSTER OPENER Unavailable Unavailable Frederic, A Lily OYSTER OPENER Unavailable Unavailable Frederic, A Lily OYSTER OPENER Unavailable Unavailable Frederic, A Lily OYSTER OPENER Unavailable Unavailable Frederic, A Lily OYSTER OPENER Unavailable Unavailable Frederic, A Lily OYSTER OPENER Unavailable Unavailable Frederic, A Lily OYSTER OPENER Unavailable Unavailable Frederic, A Lily OYSTER OPENER Unavailable Unavailable Frederic, A Lily OYSTER OPENER Unavailable Unavailable Juliet Salas Unavailable Re-disclosure Warning [...] is protected by Article 27-F of the [facility] Public Health law. If you continue you may have access to information: Regarding HIV / AIDS; Provided by facilities licensed or operated by the [facility] Office of Mental Health; or Provided by the [facility] Office for People With Developmental Disabilities. If such information is present, then the following [facility] mandated warning applies: This information has been [...] law may result in a fine or [place] health care facility sentence or both. A general authorization for the release of medical or other information is NOT sufficient authorization for further disc losure. Family History Family Member Name Family Member Gender Family Member Status Date o f Status Description Data Source(s) Unknown Male Problem MEDENT ([facility]) Encounters Encounter Providers Location Date Indications Data Source(s ) Psychiatric Diagnostic Evaluation (Non-Medical) Attender: Kemar dean Maritza [facility] 11/02/2020 10:00:00 AM EDT - 11/02/2020 10:00:00 AM EDT [facility] ([facility]) Attender: Juliet Salas 11/02/2020 12:00:00 AM EDT [facility] ([facility]) Extended Individual Psychotherapy - 45 min Attender: Mac villafana Maritza [facility] 10/26/2020 10:00:00 AM EDT - 10/26/2020 10:00:00 AM EDT [facility] ([facility]) Attender: Juliet Salas 10/26/2020 12:00:00 AM EDT [facility] ([facility]) Psychiatric Diagnostic Evaluation (Non-Medical) Attender: Kemar dean [facility] 10/22/2020 01:00:00 AM EDT - 10/22/2020 01:00:00 AM EDT [facility] ([facility]) Attender: Juliet Salas 10/22/2020 12:00:00 AM EDT [facility] ([facility]) Brief Individual Psychotherapy - 30 min Attender: Ian felipe [facility] 10/16/2020 10:00:00 AM EDT - 10/16/2020 10:00:00 AM EDT [facility] ([facility]) Attender: Ian Khan 10/16/2020 12:00:00 AM E DT [facility] ([facility]) Outpatient Attender: Eloina Locke/Evette/Sony/Arnie arroyo 08/24/2020 12:30:00 PM EST [facility] ([facility] Anita Fajardo MD: [address] [place] [phone], Ph. Attender: Anita Fajardo [facility] 08/21/2020 12:00:00 AM EST [facility]GEN[facility] ([facility]) Outpatient Attender: Ramesh Locke/[place]/Sony/R eindl 08/04/2020 12:23:00 AM EST [facility] ([facility]) Outpatient Attender: Ramesh Locke/[place]/Sony/R eindl 08/03/2020 12:23:00 AM EST [facility] ([facility]) Outpatient Attender: Ramesh Locke/[place]/Sony/R eindl 08/02/2020 12:23:00 AM EST [facility] ([facility]) Outpatient Attender: Ramesh Locke/[place]/Sony/R eindl 08/01/2020 12:23:00 AM EST [facility] ([facility]) Outpatient Attender: Ramesh Locke/[place]/Sony/R eindl 07/31/2020 12:23:00 AM EST [facility] ([facility]) Outpatient Attender: Ray Saldana/[place]/Sony/Arnie ndl 07/30/2020 12:23:00 AM EST [facility] ([facility]) Outpatient Attender: Ray Saldana/[place]/Sony/Arnie ndl 07/29/2020 12:23:00 AM EST [facility] ([facility]) Outpatient Attender: Ray Saldana/[place]/Sony/Arnie ndl 07/28/2020 12:23:00 AM EST [facility] ([facility]) Outpatient Attender: Ray Saldana/[place]/Sony/Arnie ndl 07/26/2020 12:23:00 AM EST [facility] ([facility]) Outpatient Attender: Ray Saldana/[place]/Sony/Arnie ndl 07/25/2020 12:23:00 AM EST [facility] ([facility]) Outpatient Attender: Ray Saldana/[place]/Sony/Arnie ndl 07/24/2020 12:23:00 AM EST [facility] ([facility]) Outpatient Attender: Eloina Locke/[place]/Sony/Arnie ndl 07/22/2020 12:23:00 AM EST [facility] ([facility]) Outpatient Attender: Eloina Locke/[place]/Sony/Arnie ndl 07/21/2020 12:23:00 AM EST [facility] ([facility]) Outpatient Attender: Eloina Locke/[place]/Sony/Arnie ndl 07/20/2020 12:23:00 AM EST [facility] ([facility]) Outpatient Attender: Eloina Locke/[place]/Sony/Arnie ndl 07/19/2020 12:23:00 AM EST [facility] ([facility]) Outpatient Attender: Lily AVELAR 04/18/2020 09:1 8:00 PM EDT [facility] Outpatient Attender: ROSIO AVELAR 04/18/2020 09:17:59 P M EDT [facility] Outpatient Attender: ROSIO AVELAR 04/07/2020 11:36:00 A M EDT [facility] Outpatient Attender: ROSIO AVELAR 04/05/2020 03:28:01 P M EDT [facility] Outpatient Attender: Lily AVELAR 04/05/2020 03:2 8:00 PM EDT [facility] Outpatient Attender: ROSIO AVELAR 04/05/2020 03:26:01 P M EDT [facility]/05/2020 03:2 6:01 PM EDT [facility] Medications Medication Brand Name Start [...] 12:00:00 AM EST completed MEDENT ([facility], ) 1,000 mg 08/21/2020 [...] NEEDED FOR WHEEZING SOLD: 07/16/2020 [facility] [id number] mg/30 mL 07/16/2020 12:00:00 AM EST mouthwash [...] TWICE A DAY WITH FOOD SOLD: 07/16/2020 [facility] Metformin hydrochloride 1000 MG Oral Tablet 1,000 mg METFORM IN HCL 06/20/2020 12:00:00 AM EST tablet 60 TAKE ONE TABLET BY MOUTH TWICE A DAY TAKE ONE TABLET BY MOUTH TWICE A DAY SOLD: 06/22/2020 [employer] [facility] 40 mg 08/07/2019 12:00:00 AM [...] FOR NIGHT TIME REFLUX SYMPTOMS) SOLD: 05/25/2020 [facility] Metformin hydrochloride 500 MG Oral Tabl et metformin 500 mg tablet TAKE ONE TABLET BY MOUTH TWICE A DAY metformin 500 mg tablet TAKE ONE TABLET BY MOUTH TWICE A DAY completed me tformin hydrochloride 500 MG Oral Tablet [place] ([facility]) Acetaminophen 325 MG / Hydrocodone Theresa [...] ne bitartrate 5 MG Oral Tablet EUGENIO ([facility]) first mouthwash blm suspension SWISH AND SPIT 10 ML FOUR TIMES A DAY NEEDED FOR MUCOSITIS completed fi rst mouthwash blm suspension [facility] ([facility]) Amoxicillin 875 MG / Clavulanate 125 MG Oral Tablet amoxicillin 875 mg-potassium clavulanate 125 mg tablet TAKE ONE TABLET BY MOUTH TWICE A DAY FOR 10 DAYS amoxicillin 875 mg-potassium clavulanate 125 mg tablet TAKE ONE TABLET BY MOUTH TWICE A DAY FOR 10 DAYS completed amoxicillin 875 MG / clavulanate 125 MG Oral Tablet [place] ([facility]) Sucralfate 1000 MG Oral Tablet sucralfat e 1 gram tablet TAKE ONE TABLET BY MOUTH TWO TIMES A DAY sucralfate 1 gram tablet TAKE ONE TABLET BY MOUTH TWO TIMES A DAY completed sucralfate 1000 MG Oral Tablet EUGENIO ([facility]) benzonatate 100 MG Oral Capsule benzonat ate 100 mg capsule TAKE ONE CAPSULE BY MOUTH THREE TIMES A DAY FOR COUGH benzonatate 100 mg capsule TAKE ONE CAPS ULE BY MOUTH THREE TIMES A DAY FOR COUGH comp leted benzonatate 100 MG Oral Capsule [facility]GENIO ([facility]) Insurance Providers Payer name Policy type / Coverage type Policy ID Covered green party ID Covered green party's relationship to ho Policy Ho Plan Information [place] Med[place] [id number] Family Dependent [id number] Medicaid Dental O [id number] S [id number] Medicaid S [id number] S [id number] Managed Care - Community Plan [facility] P [id number] S [id number] [facility] Community Plan Commercial [id number] Self [id number] [facility] I [id number] Self [id number] [facility] Hmo Commercial [id number] Self [id number] [facility] Commercial [id number] Self [facility] Commercial [id number] Self [id number] [facility] [id number] SP [id number] Medicaid S [id number] S [id number] Managed Care - Community Plan [facility] P [id number] S [id number] Medicaid S [id number] S [id number] Managed Care - Community Plan [facility] P [id number] S [id number] Medicaid S [id number] S [id number] Managed Care - Community Plan [facility] P [id number] S [id number] Managed Care - [facility] Community Plan P [id number] S [id number] Medicaid S [id number] S [id number] Managed Care - [facility] Community Plan P [id number] S [id number] UNHC COMMUNITY PLAN MCDHMO [id number] SP [id number] [facility](MCA[facility]) O [id number] S [id number] EMEDNY [id number] SP [id number] Sliding Fee Scale O [id number] S [id number] UNHC COMMUNITY PLAN XIX [id number] 18 [id number] PMA MANAGEMENT LEN [id number] SP [id number] PMA MANAGEMENT LEN [id number] SP [id number] P[employer] INSURANCE [employer] O [id number] S [id number] BC/BS Medicaid Commercial [id number] Self Medicaid S [id number] S [id number] Managed Care - Community Plan [facility] P [id number] S [id number] D Managed Care [facility] O [id number] S [id number] Managed Care BCBS O [id number] S [id number] zzMedicaid FFS O [id number] S [id number] [place] [id number] SP [id number] [place] [id number] SP [id number] EXCELLUS BCBS P [id number] S [id number] [place] [id number] SP [id number] MEDICAID [id number] SP [id number] Problems, Conditions, and Diagnoses Code Display Name Description Problem Type Effective Dates Data Source(s) F41.9 Anxiety disorder, unspecified Unspecified Anxiety Diso rder Condition 11/02/2020 12:00:00 AM EDT [facility] ([facility]) [id number] History of concussion injury of brain Hi story of Concussion Injury of Brain Problem 08/21/2020 12:00:00 AM STU BECKER ([facility]) [id number] Type 2 diabetes mellitus Type 2 Diabetes Mellitus Prob hieu 08/21/2020 12:00:00 AM STU BECKER ([facility]) [id number] 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 Problem 08/21/2020 12:00:00 AM EST EUGENIO ([facility]) [id number] Pneumonia Pneumonia Problem 07/18/2020 12:00:00 AM MARYLIN BECKER ([facility]) [id number] Asthma Asthma Problem 04/30/2020 05:57:56 PM ED Mickey BECKER ([facility]) [id number] Finding by site Finding by Site Problem 12:00:00 AM EDT - 08/21/2020 12:00:00 AM EST EUGENIO ([facility]) [id number] Clinical finding Clinical Finding Problem 019 12:00:00 AM EST - 08/21/2020 12:00:00 AM EST EUGEN[facility] ([facility]) [id number] Dyspnea Dyspnea Problem 06/19/2019 12:0 0:00 AM EST - 08/21/2020 12:00:00 AM EST EUGEN[facility] ([facility]) 749938531 Headache disorder Headache Disorder Problem 01/04 12:00:00 AM EDT - 08/21/2020 12:00:00 AM EST EUGEN[facility] ([facility]) [id number] Conjunctival hemorrhage of bilateral eye s Conjunctival Hemorrhage of Bilateral Eyes Problem 08/08/2018 12:00:00 AM ES T - 08/21/2020 12:00:00 AM STU BECKER ([facility]) [id number] Exposure to second hand tobacco smoke Ex posure to Second Hand Tobacco Smoke Problem 02/17/2017 12:00:00 AM EDT - 08/21/2020 12:00:00 AM EST EUGENIO ([facility]) 275035298 Bony swelling of lumbar spine Bony Swelling of Lumbar Spine Problem 04/06/2016 12:00:00 AM EDT - 08/21/2020 12:00:00 AM EST EUGENIO ([facility]) 307432005 General finding of observation of patien t General Finding of Observation of Patient Problem 10/31/2015 12:00:00 AM EDT - 08/21/2020 12:00:00 AM STU BECKER ([facility]) 38201943 Hyperglycemia Hyperglycemia Problem 10/31/2015 12 :00:00 AM EDT - 08/21/2020 12:00:00 AM STU BECKER ([facility]) 8954661 Pyrexia of unknown origin Pyrexia of Unknown Origin Pr oblem 10/31/2015 12:00:00 AM EDT - 08/21/2020 12:00:00 AM STU BECKER ([facility]) 284339489 Disorder of upper respiratory system Dis order of Upper Respiratory System Problem 10/31/2015 12:00:00 AM EDT - 08/21/2020 12:00:00 AM STU BECKER ([facility]) [id number] Pain in left knee Pain in Left Knee Problem 12:00:00 AM EDT - 08/21/2020 12:00:00 AM STU BECKER ([facility]) Surgeries/Procedures Procedure Description Date Indications Data Source(s) Psychiatric Diagnostic Evaluation (Non-Medical) 11/02/2020 12:00:00 AM EDT - 11/02/2020 12:00:00 AM EDT [facility] ([facility]) Psychiatric Diagnostic Evaluation (Non-Medical) 2020 12:00:00 AM EDT [facility] ([facility]) Extended Individual Psychotherapy - 45 min 10/26/2020 12:00:00 AM EDT - 10/26/2020 12:00:00 AM EDT [facility] ([facility]) Extended Individual Psychotherapy - 45 min 12:00:00 AM EDT [facility] ([facility]) Psychiatric Diagnostic Evaluation (Non-Medical) 10/22/2020 12:00:00 AM EDT - 10/22/2020 12:00:00 AM EDT [facility] ([facility]) Psychiatric Diagnostic Evaluation (Non-Medical) 2020 12:00:00 AM EDT [facility] ([facility]) Brief Individual Psychotherapy - 30 min 10/16/2020 12:00:00 AM EDT - 10/16/2020 12:00:00 AM EDT [facility] ([facility]) Brief Individual Psychotherapy - 30 min 10/16/2020 12: 00:00 AM EDT [facility] ([facility]) Spirometry 08/24/2020 12:00:00 AM EST M EDENT ([facility], ) Results ID Date Data Source [id number] 02/15/2021 10:17:00 AM EDT [facility] Name Value Range Interpretation Code Description Data Pilar rce(s) Supporting Document(s) SARS coronavirus 2 RdRp gene [Presence] in Respiratory specimen by JUJU with probe detection Not detected [facility] This lab was ordered by [facility] and reported by [facility]. ID Date Data Source [id number] 09/25/2020 08:53:00 AM EST MED[facility] ([facility], ) Name Value Range Interpretation Code Description Data Pilar rce(s) Supporting Document(s) FVC-Pred 5.38 L MEDENT ([facility], ) FVC-Pre 3.46 L MEDENT ([facility], ) PDFReport Laboratory test result MEDENT ([facility], ) Fev1-Pred 4.45 L MED[facility] ([facility], ) FVC-LLN 4.47 L MED[facility] ([facility]) FVC-%Pred-Pre 64 L MEDENT ([facility], ) Fev1-%Pred-Pre 58 L MEDENT ([facility], ) Fev1-LLN 3.68 L MEDENT ([facility], ) Fev1-Pre 2.61 L MEDENT ([facility]) Fev6-Pre 3.46 L [facility] ([facility]) Fev6-%Pred-Pre 64 L MED[facility] ([facility], ) Fev6-Pred 5.35 L [facility] ([facility]) Fev6-LLN 4.46 L MED[facility] ([facility]) Qtq8gcl-Kwu 75 % MED[facility] ([facility], ) Wyn2bzn-Ploj 83 % MED[facility] ([facility], ) Xpx6gkc-%Pred-Pre 90 % MED[facility] ([facility]) Czm2vtz-Flkb 99 % MED[facility] ([facility]) Skq2hjk-ZMG 73 % [facility] ([facility]) Xob1wnt-Sox 100 % [facility] ([facility]) Luu0lzp-%Pred-Pre 100 % MED[facility] ([facility]) FEFMax-Pred 9.97 L/E/sec MEDENT ([facility]) FEFMax-%Pred-Pre 60 L/E/sec [facility] ([facility]) FEFMax-LLN 7.72 L/E/sec [facility] ([facility]) FEFMax-Pre 6.00 L/E/sec [facility] ([facility]) Bii0246-Qimr 4.63 L/E/sec MEDENT ([facility]) Zqw8607-Gha 2.04 L/E/sec [facility] ([facility]) Whf5463-%Pred-Pre 44 L/E/sec MED[facility] ([facility]) ExpTime-Pre 6.44 sec MED[facility] ([facility]) Osc5097-WWL 3.07 L/E/sec MED[facility] ([facility]) Eey0oao0-Pqmx 84 % MED[facility] ([facility]) Ddz3ohk3-Tom 75 % [facility] ([facility]) Nka2ogm3-VTW 75 % [facility] ([facility]) Rcw6fxc1-%Pred-Pre 89 % [facility] ([facility]) ID Date Data Source [id number] 08/24/2020 01:28:00 PM EST MED[facility] ([facility]) Name Value Range Interpretation Code Description Data Pilar rce(s) Supporting Document(s) FVC-Pre 2.62 L MED[facility] ([facility]) PDFReport Laboratory test result MED[facility] ([facility]) FVC-Pred 5.38 L MED[facility] ([facility], ) FVC-LLN 4.47 L MED[facility] ([facility], ) FVC-%Pred-Pre 48 L MEDENT ([facility], ) Fev1-Pred 4.45 L MED[facility] ([facility], ) Fev1-LLN 3.68 L MED[facility] ([facility], ) Fev1-Pre 2.05 L MEDENT ([facility], ) Fev1-%Pred-Pre 46 L MEDENT ([facility], ) Fev6-Pred 5.35 L MED[facility] ([facility], ) Fev6-%Pred-Pre 48 L MED[facility] ([facility]) Fev6-Pre 2.62 L MED[facility] ([facility]) Fev6-LLN 4.46 L [facility] ([facility]) Xds8oqb-Nahc 83 % [facility] ([facility]) Azi9myr-Niq 78 % [facility] ([facility]) Geq1ndu-%Pred-Pre 94 % [facility] ([facility]) Syu8hop-Bznk 99 % [facility] ([facility]) Moo6eon-JJQ 73 % [facility] ([facility]) Jvp7iyf-%Pred-Pre 100 % MED[facility] ([facility]) FEFMax-Pred 9.97 L/E/sec MED[facility] ([facility], ) Ggg2dpd-Oxr 100 % [facility] ([facility]) FEFMax-Pre 4.85 L/E/sec MED[facility] ([facility]) FEFMax-%Pred-Pre 48 L/E/sec MED[facility] ([facility]) FEFMax-LLN 7.72 L/E/sec [facility] ([facility]) Kyv7472-Ema 1.79 L/E/sec MED[facility] ([facility]) Hxl5718-%Pred-Pre 38 L/E/sec MED[facility] ([facility] ) Fsw9887-Fwwi 4.63 L/E/sec MED[facility] ([facility], ) Waf8vzu1-Dgrc 84 % MED[facility] ([facility]) ExpTime-Pre 6.08 sec MEDENT ([facility]) Npe1309-VQR 3.07 L/E/sec MED[facility] ([facility], ) Wbe2ozu5-%Pred-Pre 93 % MEDENT ([facility], ) Okp7btw2-Imh 78 % MED[facility] ([facility], ) Xyw5lpw4-ZGH 75 % [facility] ([facility]) ID Date Data Source [id number] 08/06/2020 12:06:00 PM EST EUGENIO ([facility]) Name Value Range Interpretation Code Description Data Pilar rce(s) Supporting Document(s) bedside glucose 173 mg/dL 70-105 Above high normal Bedside Gluco se [place] ([facility]) ID Date Data Source [id number] 08/06/2020 06:54:00 AM EST EUGENIO ([facility]) Name Value Range Interpretation Code Description Data Pilar rce(s) Supporting Document(s) magnesium level 2.1 mg/dL 1.8-2.4 Magnesium Level [facility] ([facility]) ID Date Data Source [id number] 08/06/2020 06:54:00 AM EST EUGENIO ([facility]) Name Value Range Interpretation Code Description Data Pilar rce(s) Supporting Document(s) glucose, fasting 82 mg/dL 70-100 Glucose, Fasting AT [facility] ([facility]) blood urea nitrogen 20 mg/dL 7-18 Above high normal Blood Ure a Nitrogen EUGENIO ([facility]) creatinine for GFR 0.72 mg/dL 0.70-1.30 Creatinine for GF R [place] ([facility]) glomerular filtration rate > 60.0 >60 Glomerula r Filtration Rate EUGENIO ([facility]) sodium level 141 mEq/L 136-145 Sodium Level [facility] ([facility]) potassium serum 3.9 mEq/L 3.5-5.1 Potassium Serum ATHE ([facility]) chloride level 102 mEq/L 98-107 Chloride Level EUGENIO ([facility]) carbon dioxide level 29 mEq/L 21-32 Carbon Dioxide Level EUGENIO ([facility]) anion gap 10 mEq/L 8-16 Anion Gap [facility] ([facility]) calcium level 8.7 mg/dL 8.5-10.1 Calcium Level EUGENIO ( [facility]) AST/SGOT 49 U/L 7-37 Above high normal AST/SGOT [facility] ([facility]) ALT/SGPT 182 U/L 12-78 Above high normal ALT/SGPT [facility] ([facility]) alkaline phosphatase 52 U/L 45-117 Alkaline Phosph atase EU[facility] ([facility]) bilirubin,total 0.3 mg/dL 0.2-1.0 Bilirubin,total ATHE ([facility]) total protein 6.0 gm/dL 6.4-8.2 Below low normal Total Protein AT [facility]) albumin/globulin ratio Albumin/globu sandy Ratio EUGENIO ([facility]) ID Date Data Source [id number] 08/06/2020 06:54:00 AM EST EUGENIO ([facility]) Name Value Range Interpretation Code Description Data Pilar rce(s) Supporting Document(s) white blood count 13.3 10 4.0-10.0 Above high normal White Blood Count EUGENIO ([facility]) red blood count 4.75 10 4.30-6.10 Red Blood Count ATHE ([facility]) hemoglobin 13.3 g/dL 13.5-17.5 Below low normal Hemoglobin EUGENIO ( [facility]) hematocrit 40.1 % 42.0-52.0 Below low normal Hematocrit EUGENIO ( [facility]) mean corpuscular volume 84.4 fL 80.0-96.0 Mean Corpusc ular Volume EUGENIO ([facility]) mean corpuscular hemoglobin 28.0 pg 27.0-33.0 Mean Cor puscular Hemoglobin EUGENIO ([facility]) mean corpuscular HGB conc 33.2 g/dL 32.0-36.5 Mean Corpu scular HGB Conc EUGENIO ([facility]) red cell distribution width 12.9 % 11.5-14.5 Red Cell Distribution Width EU[facility]IO ([facility]) platelet count, automated 282 10 150-450 Platelet C ount, Automated [place] ([facility]) neutrophils % 62.4 % 36.0-66.0 Neutrophils % [place] ( [facility]) lymph % 25.8 % 24.0-44.0 Lymph % [place] ([facility]) mono % 8.5 % 0.0-5.0 Above high normal [place] % [place] ([facility]) eos % 0.6 % 0.0-3.0 Eos % [place] ([facility]) baso % 0.2 % 0.0-1.0 Baso % [place] ([facility]) immature granulocyte % 2.5 % 0-3.0 Immature Gran ulocyte % [place] ([facility]) nucleated red blood cell % 0.0 % 0-0 Nucleated Red Blood Cell % [place] ([facility]) neutrophils # 8.3 10 1.5-8.5 Neutrophils # [place] ( [facility]) lymph # 3.4 10 1.5-5.0 Lymph # [place] ([facility]) mono # 1.1 10 0.0-0.8 Above high normal [place] # [place] ([facility]) eos # 0.1 10 0.0-0.5 Eos # [place] ([facility]) baso # 0.0 10 0.0-0.2 Baso # [place] ([facility]) ID Date Data Source [id number] 08/06/2020 05:40:00 AM EST [place] ([facility]) Name Value Range Interpretation Code Description Data Pilar rce(s) Supporting Document(s) bedside glucose 110 mg/dL 70-105 Above high normal Bedside Gluco se [place] ([facility]) ID Date Data Source [id number] 08/05/2020 08:27:00 PM EST [place] ([facility]) Name Value Range Interpretation Code Description Data Pilar rce(s) Supporting Document(s) bedside glucose 317 mg/dL 70-105 Above high normal Bedside Gluco se [place] ([facility]) ID Date Data Source [id number] 08/05/2020 05:00:00 PM EST [place] ([facility]) Name Value Range Interpretation Code Description Data Pilar rce(s) Supporting Document(s) bedside glucose 283 mg/dL 70-105 Above high normal Bedside Gluco se [place] ([facility]) ID Date Data Source [id number] 08/05/2020 11:34:00 AM EST [place] ([facility]) Name Value Range Interpretation Code Description Data Pilar rce(s) Supporting Document(s) bedside glucose 237 mg/dL 70-105 Above high normal Bedside Gluco se [place] ([facility]) ID Date Data Source [id number] 08/05/2020 05:43:00 AM EST [place] ([facility]) Name Value Range Interpretation Code Description Data Pilar rce(s) Supporting Document(s) magnesium level 2.3 mg/dL 1.8-2.4 Magnesium Level ATHE ([facility]) ID Date Data Source [id number] 08/05/2020 05:43:00 AM EST [place] [facility]) Name Value Range Interpretation Code Description Data Pilar rce(s) Supporting Document(s) glucose, fasting 177 mg/dL 70-100 Above high normal Glucose, Fas ting [place] ([facility]) blood urea nitrogen 18 mg/dL 7-18 Blood Urea Nitro gen [place] ([facility]) creatinine for GFR 0.76 mg/dL 0.70-1.30 Creatinine for GF R [place] ([facility]) glomerular filtration rate > 60.0 >60 Glomerula r Filtration Rate [place] ([facility]) sodium level 140 mEq/L 136-145 Sodium Level [place] ([facility]) potassium serum 4.6 mEq/L 3.5-5.1 Potassium Serum ATHE NA ([facility]) chloride level 102 mEq/L 98-107 Chloride Level [place] ([facility]) carbon dioxide level 31 mEq/L 21-32 Carbon Dioxide Level [place] ([facility]) anion gap 7 mEq/L 8-16 Below low normal Anion Gap [place] ( [facility]) calcium level 9.3 mg/dL 8.5-10.1 Calcium Level [place] ( [facility]) AST/SGOT 34 U/L 7-37 AST/SGOT [place] ([facility]) ALT/SGPT 194 U/L 12-78 Above high normal ALT/SGPT [place] ([facility]) alkaline phosphatase 57 U/L 45-117 Alkaline Phosph atase [place] ([facility]) bilirubin,total 0.5 mg/dL 0.2-1.0 Bilirubin,total AT[facility] ([facility]) total protein 6.8 gm/dL 6.4-8.2 Total Protein [place] ( [facility]) albumin 3.2 gm/dL 3.2-5.2 Albumin [place] ([facility]) albumin/globulin ratio Albumin/globu sandy Ratio [place] ([facility]) ID Date Data Source [id number] 08/05/2020 05:43:00 AM EST [place] ([facility]) Name Value Range Interpretation Code Description Data Pilar rce(s) Supporting Document(s) white blood count 17.4 10 4.0-10.0 Above high normal White Blood Count [place] ([facility]) red blood count 4.92 10 4.30-6.10 Red Blood Count ATHE NA ([facility]) hemoglobin 13.6 g/dL 13.5-17.5 Hemoglobin [place] ([facility]) hematocrit 42.0 % 42.0-52.0 Hematocrit [place] ([facility]) mean corpuscular volume 85.4 fL 80.0-96.0 Mean Corpusc ular Volume [place] ([facility]) mean corpuscular hemoglobin 27.6 pg 27.0-33.0 Mean Cor puscular Hemoglobin [place] ([facility]) mean corpuscular HGB conc 32.4 g/dL 32.0-36.5 Mean Corpu scular HGB Conc [place] ([facility]) red cell distribution width 12.6 % 11.5-14.5 Red Cell Distribution Width [place] ([facility]) platelet count, automated 323 10 150-450 Platelet C ount, Automated [place] ([facility]) neutrophils % 84.8 % 36.0-66.0 Above high normal Neutrophils % A [facility] ([facility]) lymph % 7.9 % 24.0-44.0 Below low normal Lymph % [place] ( [facility]) mono % 5.5 % 0.0-5.0 Above high normal [place] % [place] ([facility]) eos % 0.0 % 0.0-3.0 Eos % [place] ([facility]) baso % 0.1 % 0.0-1.0 Baso % [place] ([facility]) immature granulocyte % 1.7 % 0-3.0 Immature Gran ulocyte % [place] ([facility]) nucleated red blood cell % 0.0 % 0-0 Nucleated Red Blood Cell % [place] ([facility]) neutrophils # 14.8 10 1.5-8.5 Above high normal Neutrophils # A [place] ([facility]) lymph # 1.4 10 1.5-5.0 Below low normal Lymph # [place] ( [facility]) mono # 1.0 10 0.0-0.8 Above high normal [place] # [place] ([facility]) eos # 0.0 10 0.0-0.5 Eos # [place] ([facility]) baso # 0.0 10 0.0-0.2 Baso # [place] ([facility]) ID Date Data Source [id number] 08/04/2020 08:34:00 PM EST [place] ([facility]) Name Value Range Interpretation Code Description Data Pilar rce(s) Supporting Document(s) bedside glucose 418 mg/dL 70-105 Above high normal Bedside Gluco se [place] ([facility]) ID Date Data Source [id number] 08/04/2020 04:06:00 PM EST [place] ([facility]) Name Value Range Interpretation Code Description Data Pilar rce(s) Supporting Document(s) bedside glucose 386 mg/dL 70-105 Above high normal Bedside Gluco se [place] ([facility]) ID Date Data Source [id number] 08/04/2020 11:21:00 AM EST [place] ([facility]) Name Value Range Interpretation Code Description Data Pilar rce(s) Supporting Document(s) bedside glucose 339 mg/dL 70-105 Above high normal Bedside Gluco se [place] ([facility]) ID Date Data Source [id number] 08/04/2020 05:27:00 AM EST [place] ([facility]) Name Value Range Interpretation Code Description Data Pilar rce(s) Supporting Document(s) magnesium level 2.2 mg/dL 1.8-2.4 Magnesium Level ATHE NA ([facility]) ID Date Data Source [id number] 08/04/2020 05:27:00 AM EST [place] ([facility]) Name Value Range Interpretation Code Description Data Pilar rce(s) Supporting Document(s) glucose, fasting 191 mg/dL 70-100 Above high normal Glucose, Fas ting [place] ([facility]) blood urea nitrogen 19 mg/dL 7-18 Above high normal Blood Ure a Nitrogen [place] ([facility]) creatinine for GFR 0.73 mg/dL 0.70-1.30 Creatinine for GF R [place] ([facility]) glomerular filtration rate > 60.0 >60 Glomerula r Filtration Rate [place] ([facility]) sodium level 136 mEq/L 136-145 [facility] potassium serum 4.2 mEq/L 3.5-5.1 Potassium Serum ATHE NA ([facility]) chloride level 102 mEq/L 98-107 Chloride Level [place] ([facility]) carbon dioxide level 30 mEq/L 21-32 Carbon Dioxide Level [place] ([facility]) anion gap 4 mEq/L 8-16 Below low normal Anion Gap [place] ( [facility]) calcium level 8.9 mg/dL 8.5-10.1 Calcium Level [place] ( [facility]) AST/SGOT 37 U/L 7-37 AST/SGOT [place] ([facility]) ALT/SGPT 195 U/L 12-78 Above high normal ALT/SGPT [place] ([facility]) alkaline phosphatase 52 U/L 45-117 Alkaline Phosph atase [place] ([facility]) bilirubin,total 0.4 mg/dL 0.2-1.0 Bilirubin,total [place] ([facility]) total protein 6.8 gm/dL 6.4-8.2 Total Protein [place] ( [facility]) albumin 2.9 gm/dL 3.2-5.2 Below low normal Albumin [place] ( [facility]) albumin/globulin ratio Albumin/globu sandy Ratio [place] ([facility]) ID Date Data Source [id number] 08/04/2020 05:27:00 AM EST [place] ([facility]) Name Value Range Interpretation Code Description Data Pilar rce(s) Supporting Document(s) white blood count 18.5 10 4.0-10.0 Above high normal White Blood Count [place] ([facility]) red blood count 4.69 10 4.30-6.10 Red Blood Count ATHE NA ([facility]) hemoglobin 12.8 g/dL 13.5-17.5 Below low normal Hemoglobin [place] ( [facility]) hematocrit 39.1 % 42.0-52.0 Below low normal Hematocrit [place] ( [facility]) mean corpuscular volume 83.4 fL 80.0-96.0 Mean Corpusc ular Volume [place] ([facility]) mean corpuscular hemoglobin 27.3 pg 27.0-33.0 Mean Cor puscular Hemoglobin [place] ([facility]) mean corpuscular HGB conc 32.7 g/dL 32.0-36.5 Mean Corpu scular HGB Conc [place] ([facility]) red cell distribution width 12.4 % 11.5-14.5 Red Cell Distribution Width [place] ([facility]) platelet count, automated 332 10 150-450 Platelet C ount, Automated [place] ([facility]) neutrophils % 86.6 % 36.0-66.0 Above high normal Neutrophils % [facility] lymph % 6.8 % 24.0-44.0 Below low normal Lymph % [place] ( [facility]) mono % 5.1 % 0.0-5.0 Above high normal [place] % [place] ([facility]) eos % 0.0 % 0.0-3.0 Eos % [place] ([facility]) baso % 0.2 % 0.0-1.0 Baso % [place] ([facility]) immature granulocyte % 1.3 % 0-3.0 Immature Gran ulocyte % [place] ([facility]) nucleated red blood cell % 0.0 % 0-0 Nucleated Red Blood Cell % [place] ([facility]) neutrophils # 16.0 10 1.5-8.5 Above high normal Neutrophils # A [place] ([facility]) lymph # 1.3 10 1.5-5.0 Below low normal Lymph # [place] ( [facility]) mono # 0.9 10 0.0-0.8 Above high normal [place] # [place] ([facility]) eos # 0.0 10 0.0-0.5 Eos # [place] ([facility]) baso # 0.0 10 0.0-0.2 Baso # [place] ([facility]) ID Date Data Source [id number] 08/03/2020 08:04:00 PM EST [place] ([facility]) Name Value Range Interpretation Code Description Data Pilar rce(s) Supporting Document(s) bedside glucose 401 mg/dL 70-105 Above high normal Bedside Gluco se [place] ([facility]) ID Date Data Source [id number] 08/03/2020 04:57:00 PM EST [place] ([facility]) Name Value Range Interpretation Code Description Data Pilar rce(s) Supporting Document(s) bedside glucose 353 mg/dL 70-105 Above high normal Bedside Gluco se [place] ([facility]) ID Date Data Source [id number] 08/03/2020 11:24:00 AM EST [place] ([facility]) Name Value Range Interpretation Code Description Data Pilar rce(s) Supporting Document(s) bedside glucose 359 mg/dL 70-105 Above high normal Bedside Gluco se [place] ([facility]) ID Date Data Source [id number] 08/03/2020 06:45:00 AM EST [place] ([facility]) Name Value Range Interpretation Code Description Data Pilar rce(s) Supporting Document(s) bedside glucose 310 mg/dL 70-105 Above high normal Bedside Gluco se [place] ([facility]) ID Date Data Source [id number] 08/03/2020 04:44:00 AM EST [place] ([facility]) Name Value Range Interpretation Code Description Data Pilar rce(s) Supporting Document(s) magnesium level 2.5 mg/dL 1.8-2.4 Above high normal Magnesium Lev el [place] ([facility]) ID Date Data Source [id number] 08/03/2020 04:44:00 AM EST [place] ([facility]) Name Value Range Interpretation Code Description Data Pilar rce(s) Supporting Document(s) glucose, fasting 299 mg/dL 70-100 Above high normal Glucose, Fas ting [place] ([facility]) blood urea nitrogen 17 mg/dL 7-18 Blood Urea Nitro gen [place] ([facility]) creatinine for GFR 0.84 mg/dL 0.70-1.30 Creatinine for GF R [place] ([facility]) glomerular filtration rate > 60.0 >60 Glomerula r Filtration Rate [place] ([facility]) sodium level 134 mEq/L 136-145 Below low normal Sodium Level [place] ([facility]) potassium serum 4.3 mEq/L 3.5-5.1 Potassium Serum [place] ([facility]) chloride level 100 mEq/L 98-107 Chloride Level [place] ([facility]) carbon dioxide level 27 mEq/L 21-32 Carbon Dioxide Level [place] ([facility]) anion gap 7 mEq/L 8-16 Below low normal Anion Gap [place] ( [facility]) calcium level 9.1 mg/dL 8.5-10.1 Calcium Level [place] ( [facility]) AST/SGOT 44 U/L 7-37 Above high normal AST/SGOT [place] ([facility]) ALT/SGPT 214 U/L 12-78 Above high normal ALT/SGPT [place] ([facility]) alkaline phosphatase 60 U/L 45-117 Alkaline Phosph atase [place] ([facility]) bilirubin,total 0.5 mg/dL 0.2-1.0 Bilirubin,total [place] ([facility]) total protein 6.6 gm/dL 6.4-8.2 Total Protein [place] ( [facility]) albumin 2.9 gm/dL 3.2-5.2 Below low normal Albumin [place] ( [facility]) albumin/globulin ratio Albumin/globu sandy Ratio [place] ([facility]) ID Date Data Source [id number] 08/03/2020 04:44:00 AM EST [place] ([facility]) Name Value Range Interpretation Code Description Data Pilar rce(s) Supporting Document(s) white blood count 19.1 10 4.0-10.0 Above high normal White Blood Count [place] ([facility]) red blood count 4.68 10 4.30-6.10 Red Blood Count ATHE NA ([facility]) hemoglobin 13.1 g/dL 13.5-17.5 Below low normal Hemoglobin [place] ( [facility]) hematocrit 39.4 % 42.0-52.0 Below low normal Hematocrit [place] ( [facility]) mean corpuscular volume 84.2 fL 80.0-96.0 Mean Corpusc ular Volume [place] ([facility]) mean corpuscular hemoglobin 28.0 pg 27.0-33.0 Mean Cor puscular Hemoglobin [place] ([facility]) mean corpuscular HGB conc 33.2 g/dL 32.0-36.5 Mean Corpu scular HGB Conc [place] ([facility]) red cell distribution width 12.0 % 11.5-14.5 Red Cell Distribution Width [place] ([facility]) platelet count, automated 344 10 150-450 Platelet C ount, Automated [place] ([facility]) neutrophils % 88.9 % 36.0-66.0 Above high normal Neutrophils % A [place] ([facility]) lymph % 6.3 % 24.0-44.0 Below low normal Lymph % [place] ( [facility]) mono % 4.0 % 0.0-5.0 [place] % [place] ([facility]) eos % 0.0 % 0.0-3.0 Eos % [place] ([facility]) baso % 0.1 % 0.0-1.0 Baso % [place] ([facility]) immature granulocyte % 0.7 % 0-3.0 Immature Gran ulocyte % [place] ([facility]) nucleated red blood cell % 0.0 % 0-0 Nucleated Red Blood Cell % [place] ([facility]) neutrophils # 17.0 10 1.5-8.5 Above high normal Neutrophils # A [place] ([facility]) lymph # 1.2 10 1.5-5.0 Below low normal Lymph # [place] ( [facility]) mono # 0.8 10 0.0-0.8 [place] # [place] ([facility]) eos # 0.0 10 0.0-0.5 Eos # [place] ([facility]) baso # 0.0 10 0.0-0.2 Baso # [place] ([facility]) ID Date Data Source [id number] 08/02/2020 07:40:00 PM EST [place] ([facility]) Name Value Range Interpretation Code Description Data Pilar rce(s) Supporting Document(s) bedside glucose 439 mg/dL 70-105 Above high normal Bedside Gluco se [place] ([facility]) ID Date Data Source [id number] 08/02/2020 04:44:00 PM EST [place] ([facility]) Name Value Range Interpretation Code Description Data Pilar rce(s) Supporting Document(s) bedside glucose 382 mg/dL 70-105 Above high normal Bedside Gluco se [place] ([facility]) ID Date Data Source [id number] 08/02/2020 12:10:00 PM EST [place] ([facility]) Name Value Range Interpretation Code Description Data Pilar rce(s) Supporting Document(s) bedside glucose 329 mg/dL 70-105 Above high normal Bedside Gluco se [place] ([facility]) ID Date Data Source [id number] 08/02/2020 05:55:00 AM EST [place] ([facility]) Name Value Range Interpretation Code Description Data Pilar rce(s) Supporting Document(s) magnesium level 2.4 mg/dL 1.8-2.4 Magnesium Level [place] ([facility]) ID Date Data Source [id number] 08/02/2020 05:55:00 AM EST [place] ([facility]) Name Value Range Interpretation Code Description Data Pilar rce(s) Supporting Document(s) glucose, fasting 208 mg/dL 70-100 Above high normal Glucose, Fas ting [place] ([facility]) blood urea nitrogen 17 mg/dL 7-18 Blood Urea Nitro gen [place] ([facility]) creatinine for GFR 0.84 mg/dL 0.70-1.30 Creatinine for GF R [place] ([facility]) glomerular filtration rate > 60.0 >60 Glomerula r Filtration Rate [place] ([facility]) sodium level 134 mEq/L 136-145 Below low normal Sodium Level [place] ([facility]) potassium serum 4.1 mEq/L 3.5-5.1 Potassium Serum [place] ([facility]) chloride level 98 mEq/L 98-107 Chloride Level [place] ([facility]) carbon dioxide level 30 mEq/L 21-32 Carbon Dioxide Level [place] ([facility]) anion gap 6 mEq/L 8-16 Below low normal Anion Gap [place] ( [facility]) calcium level 9.2 mg/dL 8.5-10.1 Calcium Level [place] ( [facility]) AST/SGOT 46 U/L 7-37 Above high normal AST/SGOT [place] ([facility]) ALT/SGPT 180 U/L 12-78 Above high normal ALT/SGPT [place] ([facility]) alkaline phosphatase 60 U/L 45-117 Alkaline Phosph atase [place] ([facility]) bilirubin,total 0.8 mg/dL 0.2-1.0 Bilirubin,total AT[facility] ([facility]) total protein 6.7 gm/dL 6.4-8.2 Total Protein [place] ( [facility]) albumin 2.9 gm/dL 3.2-5.2 Below low normal Albumin [place] ( [facility]) albumin/globulin ratio Albumin/globu sandy Ratio [place] ([facility]) ID Date Data Source [id number] 08/02/2020 05:55:00 AM EST [place] ([facility]) Name Value Range Interpretation Code Description Data Pilar rce(s) Supporting Document(s) white blood count 19.1 10 4.0-10.0 Above high normal White Blood Count [place] ([facility]) red blood count 4.70 10 4.30-6.10 Red Blood Count AT[facility] ([facility]) hemoglobin 13.1 g/dL 13.5-17.5 Below low normal Hemoglobin [place] ( [facility]) hematocrit 39.8 % 42.0-52.0 Below low normal Hematocrit [place] ( [facility]) mean corpuscular volume 84.7 fL 80.0-96.0 Mean Corpusc ular Volume [place] ([facility]) mean corpuscular hemoglobin 27.9 pg 27.0-33.0 Mean Cor puscular Hemoglobin [place] ([facility]) mean corpuscular HGB conc 32.9 g/dL 32.0-36.5 Mean Corpu scular HGB Conc [place] ([facility]) red cell distribution width 11.8 % 11.5-14.5 Red Cell Distribution Width [place] ([facility]) platelet count, automated 347 10 150-450 Platelet C ount, Automated [place] ([facility]) neutrophils % 84.4 % 36.0-66.0 Above high normal Neutrophils % A [facility] ([facility]) lymph % 8.6 % 24.0-44.0 Below low normal Lymph % [place] ( [facility]) mono % 6.1 % 0.0-5.0 Above high normal [place] % [place] ([facility]) eos % 0.0 % 0.0-3.0 Eos % [place] ([facility]) baso % 0.1 % 0.0-1.0 Baso % [place] ([facility]) immature granulocyte % 0.8 % 0-3.0 Immature Gran ulocyte % [place] ([facility]) nucleated red blood cell % 0.0 % 0-0 Nucleated Red Blood Cell % [place] ([facility]) neutrophils # 16.1 10 1.5-8.5 Above high normal Neutrophils # A [facility] ([facility]) lymph # 1.7 10 1.5-5.0 Lymph # [place] ([facility]) mono # 1.2 10 0.0-0.8 Above high normal [place] # [place] ([facility]) eos # 0.0 10 0.0-0.5 Eos # [place] ([facility]) baso # 0.0 10 0.0-0.2 Baso # [place] ([facility]) ID Date Data Source [id number] 08/01/2020 09:23:00 PM EST [place] ([facility]) Name Value Range Interpretation Code Description Data Pilar rce(s) Supporting Document(s) bedside glucose 461 mg/dL 70-105 Above high normal Bedside Gluco se [place] ([facility]) ID Date Data Source [id number] 08/01/2020 05:27:00 PM EST [place] ([facility]) Name Value Range Interpretation Code Description Data Pilar rce(s) Supporting Document(s) bedside glucose 369 mg/dL 70-105 Above high normal Bedside Gluco se [place] ([facility]) ID Date Data Source [id number] 08/01/2020 11:38:00 AM EST [place] ([facility]) Name Value Range Interpretation Code Description Data Pilar rce(s) Supporting Document(s) bedside glucose 428 mg/dL 70-105 Above high normal Bedside Gluco se [place] ([facility]) ID Date Data Source [id number] 08/01/2020 09:08:00 AM EST [place] ([facility]) Name Value Range Interpretation Code Description Data Pilar rce(s) Supporting Document(s) magnesium level 2.6 mg/dL 1.8-2.4 Above high normal Magnesium Lev mary [place] ([facility]) ID Date Data Source [id number] 08/01/2020 09:08:00 AM STU BECKER ([facility]) Name Value Range Interpretation Code Description Data Pilar rce(s) Supporting Document(s) glucose, fasting 301 mg/dL 70-100 Above high normal Glucose, Fas ting EUGENIO ([facility]) blood urea nitrogen 21 mg/dL 7-18 Above high normal Blood Ure a Nitrogen [place] ([facility]) creatinine for GFR 0.91 mg/dL 0.70-1.30 Creatinine for GF R [place] ([facility]) glomerular filtration rate > 60.0 >60 Glomerula r Filtration Rate EUGENIO ([facility]) sodium level 134 mEq/L 136-145 Below low normal Sodium Level ATHE ([facility]) potassium serum 4.9 mEq/L 3.5-5.1 Potassium Serum ATHE NA ([facility]) chloride level 97 mEq/L 98-107 Below low normal Chloride Level EUGENIO ([facility]) carbon dioxide level 28 mEq/L 21-32 Carbon Dioxide Level [place] ([facility]) anion gap 9 mEq/L 8-16 Anion Gap EUGENIO ([facility]) calcium level 9.0 mg/dL 8.5-10.1 Calcium Level [place] ( [facility]) AST/SGOT 41 U/L 7-37 Above high normal AST/SGOT EUGENIO ([facility]) ALT/SGPT 129 U/L 12-78 Above high normal ALT/SGPT EUGENIO ([facility]) alkaline phosphatase 64 U/L 45-117 Alkaline Phosph atase EUGENIO ([facility]) bilirubin,total 0.6 mg/dL 0.2-1.0 Bilirubin,total ATHE ([facility]) total protein 7.1 gm/dL 6.4-8.2 Total Protein [place] ( [facility]) albumin 3.0 gm/dL 3.2-5.2 Below low normal Albumin EUGENIO ( [facility]) albumin/globulin ratio Albumin/globu sandy Ratio EUGENIO ([facility]) ID Date Data Source [id number] 08/01/2020 09:08:00 AM EST EUGENIO ([facility]) Name Value Range Interpretation Code Description Data Pilar rce(s) Supporting Document(s) white blood count 15.9 10 4.0-10.0 Above high normal White Blood Count EUGENIO ([facility]) red blood count 4.70 10 4.30-6.10 Red Blood Count ATHE ([facility]) hemoglobin 13.1 g/dL 13.5-17.5 Below low normal Hemoglobin EUGENIO ( [facility]) hematocrit 39.3 % 42.0-52.0 Below low normal Hematocrit EUGENIO ( [facility]) mean corpuscular volume 83.6 fL 80.0-96.0 Mean Corpusc ular Volume EUGENIO ([facility]) mean corpuscular hemoglobin 27.9 pg 27.0-33.0 Mean Cor puscular Hemoglobin EUGENIO ([facility]) mean corpuscular HGB conc 33.3 g/dL 32.0-36.5 Mean Corpu scular HGB Conc EUGENIO ([facility]) red cell distribution width 12.1 % 11.5-14.5 Red Cell Distribution Width EUGENIO ([facility]) platelet count, automated 375 10 150-450 Platelet C ount, Automated EUGENIO ([facility]) neutrophils % 84.3 % 36.0-66.0 Above high normal Neutrophils % A THENA ([facility]) lymph % 9.6 % 24.0-44.0 Below low normal Lymph % EUGENIO ( [facility]) mono % 5.0 % 0.0-5.0 [place] % EUGENIO ([facility]) eos % 0.0 % 0.0-3.0 Eos % EUGENIO ([facility]) baso % 0.1 % 0.0-1.0 Baso % EUGENIO ([facility]) immature granulocyte % 1.0 % 0-3.0 Immature Gran ulocyte % EUGENIO ([facility]) nucleated red blood cell % 0.0 % 0-0 Nucleated Red Blood Cell % EUGENIO ([facility]) neutrophils # 13.4 10 1.5-8.5 Above high normal Neutrophils # A THENA ([facility]) lymph # 1.5 10 1.5-5.0 Lymph # EUGENIO ([facility]) mono # 0.8 10 0.0-0.8 [place] # EUGENIO ([facility]) eos # 0.0 10 0.0-0.5 Eos # EUGENIO ([facility]) baso # 0.0 10 0.0-0.2 Baso # EUGENIO ([facility]) ID Date Data Source [id number] 08/01/2020 07:44:00 AM EST EUGENIO ([facility]) Name Value Range Interpretation Code Description Data Pilar rce(s) Supporting Document(s) bedside glucose 309 mg/dL 70-105 Above high normal Bedside Gluco se EUGENIO ([facility]) ID Date Data Source [id number] 07/31/2020 08:23:00 PM EST EUGENIO ([facility]) Name Value Range Interpretation Code Description Data Pilar rce(s) Supporting Document(s) bedside glucose 429 mg/dL 70-105 Above high normal Bedside Gluco se EUGENIO ([facility]) ID Date Data Source [id number] 07/31/2020 04:49:00 PM EST EUGENIO ([facility]) Name Value Range Interpretation Code Description Data Pilar rce(s) Supporting Document(s) bedside glucose 390 mg/dL 70-105 Above high normal Bedside Gluco se EUGENIO ([facility]) ID Date Data Source [id number] 07/31/2020 11:35:00 AM EST EUGENIO ([facility]) Name Value Range Interpretation Code Description Data Pilar rce(s) Supporting Document(s) bedside glucose 366 mg/dL 70-105 Above high normal Bedside Gluco se EUGENIO ([facility]) ID Date Data Source [id number] 07/31/2020 04:56:00 AM EST EUGENIO ([facility]) Name Value Range Interpretation Code Description Data Pilar rce(s) Supporting Document(s) procalcitonin Procalcitonin EUGENIO ([facility]) ID Date Data Source [id number] 07/31/2020 04:56:00 AM EST EUGENIO ([facility]) Name Value Range Interpretation Code Description Data Pilar rce(s) Supporting Document(s) C reactive protein quantitativ 2.38 mg/dL 0.00-0.30 Above high normal C Reactive Protein Quantitativ EUGENIO ([facility]) ID Date Data Source [id number] 07/31/2020 04:56:00 AM EST EUGENIO ([facility]) Name Value Range Interpretation Code Description Data Pilar rce(s) Supporting Document(s) magnesium level 2.5 mg/dL 1.8-2.4 Above high normal Magnesium Lev el EUGENIO ([facility]) ID Date Data Source [id number] 07/31/2020 04:56:00 AM EST EUGEN[place] ([facility]) Name Value Range Interpretation Code Description Data Pilar rce(s) Supporting Document(s) glucose, fasting 321 mg/dL 70-100 Above high normal Glucose, Fas ting EUGENIO ([facility]) blood urea nitrogen 22 mg/dL 7-18 Above high normal Blood Ure a Nitrogen [place] ([facility]) creatinine for GFR 0.88 mg/dL 0.70-1.30 Creatinine for GF R EUGENIO ([facility]) glomerular filtration rate > 60.0 >60 Glomerula r Filtration Rate EUGENIO ([facility]) sodium level 134 mEq/L 136-145 Below low normal Sodium Level ATHE NA ([facility]) potassium serum 4.6 mEq/L 3.5-5.1 Potassium Serum ATHE NA ([facility]) chloride level 100 mEq/L 98-107 Chloride Level EUGENIO ([facility]) carbon dioxide level 28 mEq/L 21-32 Carbon Dioxide Level EUGENIO ([facility]) anion gap 6 mEq/L 8-16 Below low normal Anion Gap EUGENIO ( [facility]) calcium level 9.0 mg/dL 8.5-10.1 Calcium Level EUGENIO ( [facility]) ID Date Data Source [id number] 07/31/2020 04:56:00 AM EST EUGEN[place] ([facility]) Name Value Range Interpretation Code Description Data Pilra rce(s) Supporting Document(s) erythrocyte sedimentation rate 56 mm/HR 0-15 Above high normal Erythrocyte Sedimentation Rate EUGENIO ([facility]) ID Date Data Source [id number] 07/31/2020 04:56:00 AM EST EUGENIO ([facility]) Name Value Range Interpretation Code Description Data Pilar rce(s) Supporting Document(s) white blood count 16.2 10 4.0-10.0 Above high normal White Blood Count EUGENIO ([facility]) red blood count 4.44 10 4.30-6.10 Red Blood Count ATHE NA ([facility]) hemoglobin 12.3 g/dL 13.5-17.5 Below low normal Hemoglobin EUGENIO ( [facility]) hematocrit 38.0 % 42.0-52.0 Below low normal Hematocrit EUGENIO ( [facility]) mean corpuscular volume 85.6 fL 80.0-96.0 Mean Corpusc ular Volume EUGENIO ([facility]) mean corpuscular hemoglobin 27.7 pg 27.0-33.0 Mean Cor puscular Hemoglobin EUGENIO ([facility]) mean corpuscular HGB conc 32.4 g/dL 32.0-36.5 Mean Corpu scular HGB Conc EUGENIO ([facility]) red cell distribution width 12.2 % 11.5-14.5 Red Cell Distribution Width EUGENIO ([facility]) platelet count, automated 335 10 150-450 Platelet C ount, Automated EUGENIO ([facility]) neutrophils % 87.2 % 36.0-66.0 Above high normal Neutrophils % [facility] lymph % 7.7 % 24.0-44.0 Below low normal Lymph % EUGENIO ( [facility]) mono % 4.1 % 0.0-5.0 [place] % EUGENIO ([facility]) eos % 0.0 % 0.0-3.0 Eos % EUGENIO ([facility]) baso % 0.1 % 0.0-1.0 Baso % [place] ([facility]) immature granulocyte % 0.9 % 0-3.0 Immature Gran ulocyte % EUGENIO ([facility]) nucleated red blood cell % 0.0 % 0-0 Nucleated Red Blood Cell % EUGENIO ([facility]) neutrophils # 14.1 10 1.5-8.5 Above high normal Neutrophils # A THENA ([facility]) lymph # 1.2 10 1.5-5.0 Below low normal Lymph # EUGENIO ( [facility]) mono # 0.7 10 0.0-0.8 [place] # EUGENIO ([facility]) eos # 0.0 10 0.0-0.5 Eos # EUGENIO ([facility]) baso # 0.0 10 0.0-0.2 Baso # EUGENIO ([facility]) ID Date Data Source [id number] 07/30/2020 08:03:00 PM EST EUGENIO ([facility]) Name Value Range Interpretation Code Description Data Pilar rce(s) Supporting Document(s) bedside glucose 478 mg/dL 70-105 Above high normal Bedside Gluco se EUGENIO ([facility]) ID Date Data Source [id number] 07/30/2020 06:01:00 PM STU BECKER ([facility]) Name Value Range Interpretation Code Description Data Pilar rce(s) Supporting Document(s) bedside glucose 400 mg/dL 70-105 Above high normal Bedside Gluco se EUGENIO ([facility]) ID Date Data Source [id number] 07/30/2020 12:21:00 PM STU BECKER ([facility]) Name Value Range Interpretation Code Description Data Pilar rce(s) Supporting Document(s) bedside glucose 432 mg/dL 70-105 Above high normal Bedside Gluco se BECKER ([facility]) ID Date Data Source [id number] 07/30/2020 07:54:00 AM STU BECKER ([facility]) Name Value Range Interpretation Code Description Data Pilar rce(s) Supporting Document(s) bedside glucose 383 mg/dL 70-105 Above high normal Bedside Gluco se BECKER ([facility]) ID Date Data Source [id number] 07/30/2020 04:04:00 AM STU BECKER ([facility]) Name Value Range Interpretation Code Description Data Pilar rce(s) Supporting Document(s) magnesium level 2.5 mg/dL 1.8-2.4 Above high normal Magnesium Lev mary BECKER ([facility]) ID Date Data Source [id number] 07/30/2020 04:04:00 AM STU BECKER ([facility]) Name Value Range Interpretation Code Description Data Pilar rce(s) Supporting Document(s) glucose, fasting 387 mg/dL 70-100 Above high normal Glucose, Fas ting [place] ([facility]) blood urea nitrogen 20 mg/dL 7-18 Blood Urea Nitro gen EUGENIO ([facility]) creatinine for GFR 0.81 mg/dL 0.70-1.30 Creatinine for GF R EUGENIO ([facility]) glomerular filtration rate > 60.0 >60 Glomerula r Filtration Rate EUGENIO ([facility]) sodium level 138 mEq/L 136-145 Sodium Level EUGENIO ([facility]) potassium serum 4.8 mEq/L 3.5-5.1 Potassium Serum ATHE NA ([facility]) chloride level 103 mEq/L 98-107 Chloride Level EUGENIO ([facility]) carbon dioxide level 27 mEq/L 21-32 Carbon Dioxide Level EUGENIO ([facility]) anion gap 8 mEq/L 8-16 Anion Gap EUGENIO ([facility]) calcium level 8.5 mg/dL 8.5-10.1 Calcium Level [place] ( [facility]) ID Date Data Source [id number] 07/30/2020 04:04:00 AM EST EUGENIO ([facility]) Name Value Range Interpretation Code Description Data Pilar rce(s) Supporting Document(s) white blood count 17.9 10 4.0-10.0 Above high normal White Blood Count [place] ([facility]) red blood count 4.39 10 4.30-6.10 Red Blood Count ATHE ([facility]) hemoglobin 11.9 g/dL 13.5-17.5 Below low normal Hemoglobin EUGENIO ( [facility]) hematocrit 37.1 % 42.0-52.0 Below low normal Hematocrit EUGENIO ( [facility]) mean corpuscular volume 84.5 fL 80.0-96.0 Mean Corpusc ular Volume EUGENIO ([facility]) mean corpuscular hemoglobin 27.1 pg 27.0-33.0 Mean Cor puscular Hemoglobin EUGENIO ([facility]) mean corpuscular HGB conc 32.1 g/dL 32.0-36.5 Mean Corpu scular HGB Conc EUGENIO ([facility]) red cell distribution width 12.2 % 11.5-14.5 Red Cell Distribution Width EUGENIO ([facility]) platelet count, automated 311 10 150-450 Platelet C ount, Automated EUGENIO ([facility]) neutrophils % 88.8 % 36.0-66.0 Above high normal Neutrophils % A THENA ([facility]) lymph % 6.5 % 24.0-44.0 Below low normal Lymph % EUGENIO ( [facility]) mono % 4.0 % 0.0-5.0 [place] % EUGENIO ([facility]) eos % 0.0 % 0.0-3.0 Eos % EU[place]IO ([facility]) baso % 0.1 % 0.0-1.0 Baso % EU[place] ([facility]) immature granulocyte % 0.6 % 0-3.0 Immature Gran ulocyte % EUGENIO ([facility]) nucleated red blood cell % 0.0 % 0-0 Nucleated Red Blood Cell % EUGENIO ([facility]) neutrophils # 15.9 10 1.5-8.5 Above high normal Neutrophils # A THENA ([facility]) lymph # 1.2 10 1.5-5.0 Below low normal Lymph # EUGENIO ( [facility]) mono # 0.7 10 0.0-0.8 [place] # EUGENIO ([facility]) eos # 0.0 10 0.0-0.5 Eos # EUGENIO ([facility]) baso # 0.0 10 0.0-0.2 Baso # EUGENIO ([facility]) ID Date Data Source [id number] 07/29/2020 08:55:00 PM EST EUGENIO ([facility]) Name Value Range Interpretation Code Description Data Pilar rce(s) Supporting Document(s) bedside glucose 343 mg/dL 70-105 Above high normal Bedside Gluco se EUGENIO ([facility]) ID Date Data Source [id number] 07/29/2020 04:43:00 PM EST EUGENIO ([facility]) Name Value Range Interpretation Code Description Data Pilar rce(s) Supporting Document(s) bedside glucose 422 mg/dL 70-105 Above high normal Bedside Gluco se EUGENIO ([facility]) ID Date Data Source [id number] 07/29/2020 12:10:00 PM EST EUGENIO ([facility]) Name Value Range Interpretation Code Description Data Pilar rce(s) Supporting Document(s) bedside glucose 391 mg/dL 70-105 Above high normal Bedside Gluco se EUGENIO ([facility]) ID Date Data Source [id number] 07/29/2020 05:21:00 AM EST EUGENIO ([facility]) Name Value Range Interpretation Code Description Data Pilar rce(s) Supporting Document(s) magnesium level 2.4 mg/dL 1.8-2.4 Magnesium Level ATHE ([facility]) ID Date Data Source [id number] 07/29/2020 05:21:00 AM EST EUGENIO ([facility]) Name Value Range Interpretation Code Description Data Pilar rce(s) Supporting Document(s) glucose, fasting 284 mg/dL 70-100 Above high normal Glucose, Fas ting EUGENIO ([facility]) blood urea nitrogen 11 mg/dL 7-18 Blood Urea Nitro gen EUGENIO ([facility]) creatinine for GFR 0.75 mg/dL 0.70-1.30 Creatinine for GF R EUGENIO ([facility]) glomerular filtration rate > 60.0 >60 Glomerula r Filtration Rate EUGENIO ([facility]) sodium level 134 mEq/L 136-145 Below low normal Sodium Level ATHE NA ([facility]) potassium serum 4.8 mEq/L 3.5-5.1 Potassium Serum ATHE NA ([facility]) chloride level 100 mEq/L 98-107 Chloride Level EUGENIO ([facility]) carbon dioxide level 29 mEq/L 21-32 Carbon Dioxide Level EUGENIO ([facility]) anion gap 5 mEq/L 8-16 Below low normal Anion Gap EUGENIO ( [facility]) calcium level 8.7 mg/dL 8.5-10.1 Calcium Level EUGENIO ( [facility]) ID Date Data Source [id number] 07/29/2020 05:21:00 AM EST EUGENIO ([facility]) Name Value Range Interpretation Code Description Data Pilar rce(s) Supporting Document(s) white blood count 11.1 10 4.0-10.0 Above high normal White Blood Count EUGENIO ([facility]) red blood count 4.52 10 4.30-6.10 Red Blood Count ATHE ([facility]) hemoglobin 12.5 g/dL 13.5-17.5 Below low normal Hemoglobin UEGENIO ( [facility]) hematocrit 38.5 % 42.0-52.0 Below low normal Hematocrit EUGENIO ( [facility]) mean corpuscular volume 85.2 fL 80.0-96.0 Mean Corpusc ular Volume EUGENIO ([facility]) mean corpuscular hemoglobin 27.7 pg 27.0-33.0 Mean Cor puscular Hemoglobin EUGENIO ([facility]) mean corpuscular HGB conc 32.5 g/dL 32.0-36.5 Mean Corpu scular HGB Conc EUGENIO ([facility]) red cell distribution width 12.2 % 11.5-14.5 Red Cell Distribution Width EUGENIO ([facility]) platelet count, automated 254 10 150-450 Platelet C ount, Automated EUGENOI ([facility]) neutrophils % 87.2 % 36.0-66.0 Above high normal Neutrophils % A THENA ([facility]) lymph % 8.8 % 24.0-44.0 Below low normal Lymph % EUGENIO ( [facility]) mono % 3.1 % 0.0-5.0 [place] % EUGENIO ([facility]) eos % 0.0 % 0.0-3.0 Eos % EU[place]IO ([facility]) baso % 0.1 % 0.0-1.0 Baso % EU[place] ([facility]) immature granulocyte % 0.8 % 0-3.0 Immature Gran ulocyte % EUGENIO ([facility]) nucleated red blood cell % 0.0 % 0-0 Nucleated Red Blood Cell % EUGENIO ([facility]) neutrophils # 9.7 10 1.5-8.5 Above high normal Neutrophils # A THENA ([facility]) lymph # 1.0 10 1.5-5.0 Below low normal Lymph # EUGENIO ( [facility]) mono # 0.3 10 0.0-0.8 [place] # EUGENIO ([facility]) eos # 0.0 10 0.0-0.5 Eos # EUGENIO ([facility]) baso # 0.0 10 0.0-0.2 Baso # EUGENIO ([facility]) ID Date Data Source [id number] 07/28/2020 08:09:00 PM EST EUGENIO ([facility]) Name Value Range Interpretation Code Description Data Pilar rce(s) Supporting Document(s) bedside glucose 360 mg/dL 70-105 Above high normal Bedside Gluco se EUGENIO ([facility]) ID Date Data Source [id number] 07/28/2020 05:44:00 PM EST EUGENIO ([facility]) Name Value Range Interpretation Code Description Data Pilar rce(s) Supporting Document(s) bedside glucose 198 mg/dL 70-105 Above high normal Bedside Gluco se EUGENIO ([facility]) ID Date Data Source [id number] 07/28/2020 12:08:00 PM EST EUGENIO ([facility]) Name Value Range Interpretation Code Description Data Pilar rce(s) Supporting Document(s) bedside glucose 245 mg/dL 70-105 Above high normal Bedside Gluco se EUGENIO ([facility]) ID Date Data Source [id number] 07/28/2020 10:05:00 AM EST EUGENIO ([facility]) Name Value Range Interpretation Code Description Data Pilar rce(s) Supporting Document(s) sars covid-19 amplification negative negative Sars Cov id-19 Amplification EUGENIO ([facility]) ID Date Data Source [id number] 07/28/2020 10:05:00 AM EST [facility] Name Value Range Interpretation Code Description Data Pilar rce(s) Supporting Document(s) SARS coronavirus 2 RNA [Presence] in Res piratory specimen by JUJU with probe detection NEGATIVE [facility] This lab was ordered by [facility] a nd reported by [facility]. ID Date Data Source [id number] 07/28/2020 09:02:00 AM EST EUGENIO ([facility]) Name Value Range Interpretation Code Description Data Pilar rce(s) Supporting Document(s) bedside glucose 175 mg/dL 70-105 Above high normal Bedside Gluco se [place] ([facility]) ID Date Data Source [id number] 07/28/2020 05:38:00 AM EST EUGENIO ([facility]) Name Value Range Interpretation Code Description Data Pilar rce(s) Supporting Document(s) magnesium level 2.0 mg/dL 1.8-2.4 Magnesium Level ATHE ([facility]) ID Date Data Source [id number] 07/28/2020 05:38:00 AM EST EUGENIO ([facility]) Name Value Range Interpretation Code Description Data Pilar rce(s) Supporting Document(s) glucose, fasting 176 mg/dL 70-100 Above high normal Glucose, Fas ting EUGENIO ([facility]) blood urea nitrogen 11 mg/dL 7-18 Blood Urea Nitro gen EUGENIO ([facility]) creatinine for GFR 0.71 mg/dL 0.70-1.30 Creatinine for GF R EUGENIO ([facility]) glomerular filtration rate > 60.0 >60 Glomerula r Filtration Rate EUGENIO ([facility]) sodium level 139 mEq/L 136-145 Sodium Level EUGENIO ([facility]) potassium serum 4.1 mEq/L 3.5-5.1 Potassium Serum ATHE NA ([facility]) chloride level 106 mEq/L 98-107 Chloride Level EUGENIO ([facility]) carbon dioxide level 25 mEq/L 21-32 Carbon Dioxide Level EUGENIO ([facility]) anion gap 8 mEq/L 8-16 Anion Gap EUGENIO ([facility]) calcium level 8.5 mg/dL 8.5-10.1 Calcium Level EUGENIO ( [facility]) ID Date Data Source [id number] 07/28/2020 05:38:00 AM EST EU[place] ([facility]) Name Value Range Interpretation Code Description Data Pilar rce(s) Supporting Document(s) white blood count 11.4 10 4.0-10.0 Above high normal White Blood Count EUGENIO ([facility]) red blood count 4.52 10 4.30-6.10 Red Blood Count ATHE ([facility]) hemoglobin 12.5 g/dL 13.5-17.5 Below low normal Hemoglobin EUGENIO ( [facility]) hematocrit 38.6 % 42.0-52.0 Below low normal Hematocrit EUGNEIO ( [facility]) mean corpuscular volume 85.4 fL 80.0-96.0 Mean Corpusc ular Volume EUGENIO ([facility]) mean corpuscular hemoglobin 27.7 pg 27.0-33.0 Mean Cor puscular Hemoglobin [facility] ([facility] System) mean corpuscular HGB conc 32.4 g/dL 32.0-36.5 Mean Corpu scular HGB Conc EUGENIO ([facility]) red cell distribution width 12.4 % 11.5-14.5 Red Cell Distribution Width EUGENIO ([facility]) platelet count, automated 271 10 150-450 Platelet C ount, Automated EU[place] ([facility]) neutrophils % 76.3 % 36.0-66.0 Above high normal Neutrophils % A THENA ([facility]) lymph % 13.6 % 24.0-44.0 Below low normal Lymph % EUGENIO ( [facility]) mono % 8.2 % 0.0-5.0 Above high normal [place] % EUGENIO ([facility]) eos % 0.6 % 0.0-3.0 Eos % EU[place] ([facility]) baso % 0.2 % 0.0-1.0 Baso % EU[place] ([facility]) immature granulocyte % 1.1 % 0-3.0 Immature Gran ulocyte % EUGENIO ([facility]) nucleated red blood cell % 0.0 % 0-0 Nucleated Red Blood Cell % EUGENIO ([facility]) neutrophils # 8.7 10 1.5-8.5 Above high normal Neutrophils # A THENA ([facility]) lymph # 1.5 10 1.5-5.0 Lymph # EUGENIO ([facility]) mono # 0.9 10 0.0-0.8 Above high normal [place] # [place]GENIO ([facility]) eos # 0.1 10 0.0-0.5 Eos # [place] ([facility]) baso # 0.0 10 0.0-0.2 Baso # EUGEN[facility] ([facility]) ID Date Data Source [id number] 07/27/2020 10:02:00 PM EST EUGEN[place] ([facility]) Name Value Range Interpretation Code Description Data Pilar rce(s) Supporting Document(s) ID Date Data Source [id number] 07/27/2020 10:02:00 PM EST EUGENIO ([facility]) Name Value Range Interpretation Code Description Data Pilar rce(s) Supporting Document(s) ID Date Data Source [id number] 07/27/2020 10:02:00 PM EST EUGENIO ([facility]) Name Value Range Interpretation Code Description Data Pilar rce(s) Supporting Document(s) troponin I < 0.02 < 0.10 Troponin I EUGENIO ([facility]) ID Date Data Source [id number] 07/27/2020 08:14:00 PM EST EU[place] ([facility]) Name Value Range Interpretation Code Description Data Pilar rce(s) Supporting Document(s) bedside glucose 215 mg/dL 70-105 Above high normal Bedside Gluco se EUGENIO ([facility]) ID Date Data Source [id number] 07/27/2020 05:08:00 PM EST EUGENIO ([facility]) Name Value Range Interpretation Code Description Data Pilar rce(s) Supporting Document(s) bedside glucose 189 mg/dL 70-105 Above high normal Bedside Gluco se EUGENIO ([facility]) ID Date Data Source [id number] 07/27/2020 11:46:00 AM EST EUGENIO ([facility]) Name Value Range Interpretation Code Description Data Pilar rce(s) Supporting Document(s) bedside glucose 176 mg/dL 70-105 Above high normal Bedside Gluco se EUGENIO ([facility]) ID Date Data Source [id number] 07/27/2020 06:19:00 AM EST EUGENIO ([facility]) Name Value Range Interpretation Code Description Data Pilar rce(s) Supporting Document(s) magnesium level 2.1 mg/dL 1.8-2.4 Magnesium Level ATHE NA ([facility]) ID Date Data Source [id number] 07/27/2020 06:19:00 AM EST EUGENIO ([facility]) Name Value Range Interpretation Code Description Data Pilar rce(s) Supporting Document(s) glucose, fasting 144 mg/dL 70-100 Above high normal Glucose, Fas ting EUGENIO ([facility]) blood urea nitrogen 12 mg/dL 7-18 Blood Urea Nitro gen EUGENIO ([facility]) creatinine for GFR 0.63 mg/dL 0.70-1.30 Below low normal Creatinine for GFR EUGEN[place] ([facility]) glomerular filtration rate > 60.0 >60 Glomerula r Filtration Rate EUGENIO ([facility]) sodium level 138 mEq/L 136-145 Sodium Level EUGENIO ([facility]) potassium serum 3.6 mEq/L 3.5-5.1 Potassium Serum ATHE ([facility]) chloride level 104 mEq/L 98-107 Chloride Level EUGENIO ([facility]) carbon dioxide level 25 mEq/L 21-32 Carbon Dioxide Level EUGENIO ([facility]) anion gap 9 mEq/L 8-16 Anion Gap EUGEN[facility] ([facility]) calcium level 8.2 mg/dL 8.5-10.1 Below low normal Calcium Level AT [facility]) ID Date Data Source [id number] 07/27/2020 06:19:00 AM EST [facility]) Name Value Range Interpretation Code Description Data Pilar rce(s) Supporting Document(s) white blood count 11.4 10 4.0-10.0 Above high normal White Blood Count EUGENIO ([facility]) red blood count 4.73 10 4.30-6.10 Red Blood Count ATHE [facility]) hemoglobin 13.0 g/dL 13.5-17.5 Below low normal Hemoglobin EUGENIO ( [facility]) hematocrit 40.9 % 42.0-52.0 Below low normal Hematocrit EUGENIO ( [facility]) mean corpuscular volume 86.5 fL 80.0-96.0 Mean Corpusc ular Volume EUGENIO ([facility]) mean corpuscular hemoglobin 27.5 pg 27.0-33.0 Mean Cor puscular Hemoglobin EUGENIO ([facility]) mean corpuscular HGB conc 31.8 g/dL 32.0-36.5 Below low micki l Mean Corpuscular HGB Conc EUGENIO ([facility]) red cell distribution width 12.1 % 11.5-14.5 Red Cell Distribution Width EUGENIO ([facility]) platelet count, automated 290 10 150-450 Platelet C ount, Automated EU[place] ([facility]) neutrophils % 69.9 % 36.0-66.0 Above high normal Neutrophils % A THENA ([facility]) lymph % 19.6 % 24.0-44.0 Below low normal Lymph % EUGENIO ( [facility]) mono % 8.7 % 0.0-5.0 Above high normal [place] % EU[facility] ([facility]) eos % 0.5 % 0.0-3.0 Eos % [facility] ([facility]) baso % 0.2 % 0.0-1.0 Baso % [place] ([facility]) immature granulocyte % 1.1 % 0-3.0 Immature Gran ulocyte % EUGENIO ([facility]) nucleated red blood cell % 0.0 % 0-0 Nucleated Red Blood Cell % [place] ([facility]) neutrophils # 8.0 10 1.5-8.5 Neutrophils # EUGENIO ( [facility]) lymph # 2.2 10 1.5-5.0 Lymph # EUGEN[facility] ([facility]) mono # 1.0 10 0.0-0.8 Above high normal [place] # EUGENIO ([facility]) eos # 0.1 10 0.0-0.5 Eos # EUGEN[facility] ([facility]) baso # 0.0 10 0.0-0.2 Baso # [facility] ([facility]) ID Date Data Source [id number] 07/26/2020 10:47:00 PM EST EUGENIO ([facility]) Name Value Range Interpretation Code Description Data Pilar rce(s) Supporting Document(s) bedside glucose 246 mg/dL 70-105 Above high normal Bedside Gluco se EUGENIO ([facility]) ID Date Data Source [id number] 07/26/2020 05:19:00 PM EST EU[place] ([facility]) Name Value Range Interpretation Code Description Data Pilar rce(s) Supporting Document(s) bedside glucose 225 mg/dL 70-105 Above high normal Bedside Gluco se EUGENIO ([facility]) ID Date Data Source [id number] 07/26/2020 04:04:00 PM EST EUGENIO ([facility]) Name Value Range Interpretation Code Description Data Pilar rce(s) Supporting Document(s) erythrocyte sedimentation rate 44 mm/HR 0-15 Above high normal Erythrocyte Sedimentation Rate EUGENIO ([facility]) ID Date Data Source [id number] 07/26/2020 12:05:00 PM EST EUGENIO ([facility]) Name Value Range Interpretation Code Description Data Pilar rce(s) Supporting Document(s) legionella antigen urine negative negative Legionella Antigen Urine EUGENIO ([facility]) ID Date Data Source [id number] 07/26/2020 12:05:00 PM EST EUGENIO ([facility]) Name Value Range Interpretation Code Description Data Pilar rce(s) Supporting Document(s) specimen source urine . Specimen Source [facility] ([facility]) urine strep pneumoniae antigen negative negative Urine Strep Pneumoniae Antigen [place] ([facility]) body fluid culture not indicated. . Body Fluid Cu lture [place] ([facility]) organism id not indicated. . Organism Id [place] ( [facility]) please note . Please Note [place]GENIO ([facility]) ID Date Data Source [id number] 07/26/2020 11:28:00 AM EST EU[place] ([facility]) Name Value Range Interpretation Code Description Data Pilar rce(s) Supporting Document(s) bedside glucose 210 mg/dL 70-105 Above high normal Bedside Gluco se EU[place]IO ([facility]) ID Date Data Source [id number] 07/26/2020 05:51:00 AM EST [place] ([facility]) Name Value Range Interpretation Code Description Data Pilar rce(s) Supporting Document(s) bedside glucose 114 mg/dL 70-105 Above high normal Bedside Gluco se EUGENIO ([facility]) ID Date Data Source [id number] 07/26/2020 03:59:00 AM EST EUGENIO ([facility]) Name Value Range Interpretation Code Description Data Pilar rce(s) Supporting Document(s) C reactive protein quantitativ 4.54 mg/dL 0.00-0.30 Above high normal C Reactive Protein Quantitativ [place] ([facility]) ID Date Data Source [id number] 07/26/2020 03:59:00 AM EST [place] ([facility]) Name Value Range Interpretation Code Description Data Pilar rce(s) Supporting Document(s) platelet estimate normal normal Platelet Estimate [place] ([facility]) ID Date Data Source [id number] 07/26/2020 03:59:00 AM EST [facility]) Name Value Range Interpretation Code Description Data Pilar rce(s) Supporting Document(s) neutrophils 66 % 28-66 Neutrophils EUGENIO ([facility]) bands 1 % < 11 Bands EUGENIO ([facility]) lymphocytes 24 % 16-44 Lymphocytes EUGENIO ([facility]) monocytes 6 % 0-5 Above high normal Monocytes EUGENIO ([facility]) atypical lymph 3 % 0-5 Atypical Lymph EU[place] ([facility]) anisocytosis 1+ Anisocytosis [place] ([facility]) ID Date Data Source [id number] 07/26/2020 03:59:00 AM EST [facility]) Name Value Range Interpretation Code Description Data Pilar rce(s) Supporting Document(s) white blood count 8.9 10 4.0-10.0 White Blood Count [place] ([facility]) red blood count 5.03 10 4.30-6.10 Red Blood Count ATHE NA ([facility]) hemoglobin 13.6 g/dL 13.5-17.5 Hemoglobin EUGENIO ([facility]) hematocrit 45.2 % 42.0-52.0 Hematocrit EU[place] ([facility]) mean corpuscular volume 89.9 fL 80.0-96.0 Mean Corpusc ular Volume EUGENIO ([facility]) mean corpuscular hemoglobin 27.0 pg 27.0-33.0 Mean Cor puscular Hemoglobin EUGENIO ([facility]) mean corpuscular HGB conc 30.1 g/dL 32.0-36.5 Below low micki l Mean Corpuscular HGB Conc [place] ([facility]) red cell distribution width 12.2 % 11.5-14.5 Red Cell Distribution Width EUGENIO ([facility]) platelet count, automated 277 10 150-450 Platelet C ount, Automated EU[place] ([facility]) nucleated red blood cell % 0.0 % 0-0 Nucleated Red Blood Cell % [place] ([facility]) ID Date Data Source [id number] 07/26/2020 03:59:00 AM EST [place] ([facility]) Name Value Range Interpretation Code Description Data Pilar rce(s) Supporting Document(s) magnesium level 2.2 mg/dL 1.8-2.4 Magnesium Level ATHE YARIEL ([facility]) ID Date Data Source [id number] 07/26/2020 03:59:00 AM EST [place] ([facility]) Name Value Range Interpretation Code Description Data Pilar rce(s) Supporting Document(s) glucose, fasting 125 mg/dL 70-100 Above high normal Glucose, Fas ting EUGENOI ([facility]) blood urea nitrogen 16 mg/dL 7-18 Blood Urea Nitro gen [facility] ([facility]) creatinine for GFR 0.59 mg/dL 0.70-1.30 Below low normal Creatinine for GFR EU[place] ([facility]) glomerular filtration rate > 60.0 >60 Glomerula r Filtration Rate EU[place]IO ([facility]) sodium level 139 mEq/L 136-145 Sodium Level EUGENIO ([facility]) potassium serum 4.0 mEq/L 3.5-5.1 Potassium Serum ATHE NA ([facility]) chloride level 107 mEq/L 98-107 Chloride Level EUGENIO ([facility]) carbon dioxide level 24 mEq/L 21-32 Carbon Dioxide Level EUGENIO ([facility]) anion gap 8 mEq/L 8-16 Anion Gap EU[place] ([facility]) calcium level 8.0 mg/dL 8.5-10.1 Below low normal Calcium Level AT [facility]) ID Date Data Source [id number] 07/25/2020 04:44:00 PM EST EUGENIO ([facility]) Name Value Range Interpretation Code Description Data Pilar rce(s) Supporting Document(s) bedside glucose 247 mg/dL 70-105 Above high normal Bedside Gluco se [facility]) ID Date Data Source [id number] 07/25/2020 11:31:00 [facility] Name Value Range Interpretation Code Description Data Pilar rce(s) Supporting Document(s) bedside glucose 158 mg/dL 70-105 Above high normal Bedside Gluco se EUGENIO ([facility]) ID Date Data Source [id number] 07/25/2020 05:02:00 AM EST EU[place] ([facility]) Name Value Range Interpretation Code Description Data Pilar rce(s) Supporting Document(s) platelet estimate normal normal [facility]let [facility] ID Date Data Source [id number] 07/25/2020 05:02:00 AM [facility] Name Value Range Interpretation Code Description Data Pilar rce(s) Supporting Document(s) neutrophils 72 % 28-66 Above high normal Neutrophils ATHEN A ([facility]) bands 1 % < 11 Bands EU[place]IO ([facility]) lymphocytes 14 % 16-44 Below low normal Lymphocytes EUGENIO ([facility]) monocytes 6 % 0-5 Above high normal Monocytes EUGENIO ([facility]) eosinophils 1 % 0-3 Eosinophils EU[place] ([facility]) atypical lymph 6 % 0-5 Above high normal Atypical Lymph EU[place] ([facility]) anisocytosis 1+ Anisocytosis [facility]IO ([facility]) ID Date Data Source [id number] 07/25/2020 05:02:00 AM EST [place]GENIO ([facility]) Name Value Range Interpretation Code Description Data Pilar rce(s) Supporting Document(s) white blood count 9.9 10 4.0-10.0 White Blood Count EU[place]IO ([facility]) red blood count 4.90 10 4.30-6.10 Red Blood Count ATHE NA ([facility]) hemoglobin 13.3 g/dL 13.5-17.5 Below low normal Hemoglobin EUGENIO ( [facility]) hematocrit 41.7 % 42.0-52.0 Below low normal Hematocrit EU[place]IO ( [facility]) mean corpuscular volume 85.1 fL 80.0-96.0 Mean Corpusc ular Volume EUGENIO ([facility]) mean corpuscular hemoglobin 27.1 pg 27.0-33.0 Mean Cor puscular Hemoglobin EUGNEIO ([facility]) mean corpuscular HGB conc 31.9 g/dL 32.0-36.5 Below low micki l Mean Corpuscular HGB Conc EUGENIO ([facility]) red cell distribution width 12.2 % 11.5-14.5 Red Cell Distribution Width EU[place]IO ([facility]) platelet count, automated 295 10 150-450 Platelet C ount, Automated EU[place] ([facility]) nucleated red blood cell % 0.0 % 0-0 Nucleated Red Blood Cell % EU[place]IO ([facility]) ID Date Data Source [id number] 07/25/2020 05:02:00 AM EST [place] ([facility]) Name Value Range Interpretation Code Description Data Pilar rce(s) Supporting Document(s) magnesium level 2.2 mg/dL 1.8-2.4 Magnesium Level ATHE NA ([facility]) ID Date Data Source [id number] 07/25/2020 05:02:00 AM EST [place] ([facility]) Name Value Range Interpretation Code Description Data Pilar rce(s) Supporting Document(s) glucose, fasting 146 mg/dL 70-100 Above high normal Glucose, Fas ting EUGENIO ([facility]) blood urea nitrogen 19 mg/dL 7-18 Above high normal Blood Ure a Nitrogen EU[facility]IO ([facility]) creatinine for GFR 0.75 mg/dL 0.70-1.30 Creatinine for GF R EUGENIO ([facility]) glomerular filtration rate > 60.0 >60 Glomerula r Filtration Rate EUGENIO ([facility]) sodium level 139 mEq/L 136-145 Sodium Level EUGENIO ([facility]) potassium serum 4.4 mEq/L 3.5-5.1 Potassium Serum ATHE ([facility]) chloride level 105 mEq/L 98-107 Chloride Level EUGENIO ([facility]) carbon dioxide level 28 mEq/L 21-32 Carbon Dioxide Level EU[place]IO ([facility]) anion gap 6 mEq/L 8-16 Below low normal Anion Gap EUGENIO ( [facility]) calcium level 8.7 mg/dL 8.5-10.1 Calcium Level EUGENIO ( [facility]) phosphorus level 3.9 mg/dL 2.5-4.9 Phosphorus Level AT [facility]) AST/SGOT 56 U/L 7-37 Above high normal AST/SGOT [place] ([facility]) ALT/SGPT 70 U/L 12-78 ALT/SGPT [facility] ([facility]) LDH lactate dehydrogenase 425 U/L 87-241 Above high norm al LDH Lactate Dehydrogenase EUGENIO ([facility]) CPK creatine phosphokinase 75 U/L 39-308 CPK Creat ine Phosphokinase EU[place]IO ([facility]) alkaline phosphatase 63 U/L 45-117 Alkaline Phosph atase [facility] ([facility]) bilirubin,total 1.0 mg/dL 0.2-1.0 Bilirubin,total ATHE NA ([facility]) triglycerides level 221 mg/dL <150 Above high normal Triglycer ides Level EUGENIO ([facility]) cholesterol level 140 mg/dL < 200 Cholesterol Level EU[place]IO ([facility]) total protein 6.6 gm/dL 6.4-8.2 Total Protein EU[place] ( [facility]) albumin 2.7 gm/dL 3.2-5.2 Below low normal Albumin EUGENIO ( [facility]) albumin/globulin ratio Albumin/globu sandy Ratio EUGENIO ([facility]) ID Date Data Source [id number] 07/25/2020 05:02:00 AM EST EUGENIO ([facility]) Name Value Range Interpretation Code Description Data Pilar rce(s) Supporting Document(s) SUKHI result calc negative SUKHI Result Calc ATHE YARIEL ([facility]) ID Date Data Source [id number] 07/25/2020 12:56:00 AM EST [place] ([facility]) Name Value Range Interpretation Code Description Data Pilar rce(s) Supporting Document(s) bedside glucose 188 mg/dL 70-105 Above high normal Bedside Gluco se [place]IO ([facility]) ID Date Data Source [id number] 07/24/2020 06:39:00 PM EST [place] ([facility]) Name Value Range Interpretation Code Description Data Pilar rce(s) Supporting Document(s) bedside glucose 213 mg/dL 70-105 Above high normal Bedside Gluco se EUGENIO ([facility]) ID Date Data Source [id number] 07/24/2020 06:25:00 PM EST [place] ([facility]) Name Value Range Interpretation Code Description Data Pilar rce(s) Supporting Document(s) ABG pH (arterial) 7.402 units 7.350-7.450 ABG pH (Arterial ) EU[place] ([facility]) ABG partial pressure CO2 38.9 mmHg 35.0-45.0 ABG Partial Pressure CO2 [place] ([facility]) ABG partial pressure O2 66.5 mmHg 75.0-100.0 Below low normal ABG Partial Pressure O2 [place] ([facility]) ABG total CO2 24.9 mEq/L 22.0-29.0 ABG Total CO2 [place] ( [facility]) ABG HCO3 23.7 mEq/L 22.0-26.0 Abg Hco3 [place] ([facility]) ABG base excess -2.0-2.0 ABG Base Excess ATHE NA ([facility]) ABG standard HCO3 23.7 mEq/L 22.0-26.0 ABG Standard HCO3 [place] ([facility]) ABG O2 saturation 93.6 % 95.0-99.0 Below low normal ABG O2 Satur ation EU[place]IO ([facility]) ID Date Data Source [id number] 07/24/2020 12:29:00 PM EST [place] ([facility]) Name Value Range Interpretation Code Description Data Pilar rce(s) Supporting Document(s) bedside glucose 149 mg/dL 70-105 Above high normal Bedside Gluco se EUGENIO ([facility]) ID Date Data Source [id number] 07/24/2020 06:06:00 AM EST [place] ([facility]) Name Value Range Interpretation Code Description Data Pilar rce(s) Supporting Document(s) bedside glucose 189 mg/dL 70-105 Above high normal Bedside Gluco se EU[place]IO ([facility]) ID Date Data Source [id number] 07/24/2020 06:00:00 AM EST [place] ([facility]) Name Value Range Interpretation Code Description Data Pilar rce(s) Supporting Document(s) histoplasma gal'maria eugenia Ag ur <0.5 <0.5 NG/mL Histopl asma Gal'maria eugenia Ag Ur [facility] ([facility]) disclaimer . Disclaimer [facility] ([facility]) ID Date Data Source [id number] 07/24/2020 05:47:00 AM EST [place] ([facility]) Name Value Range Interpretation Code Description Data Pilar rce(s) Supporting Document(s) cryptococcus antigen ser negative negative Cryptococcu s Antigen Ser [place] ([facility]) ID Date Data Source [id number] 07/24/2020 05:47:00 AM EST [place] ([facility]) Name Value Range Interpretation Code Description Data Pilar rce(s) Supporting Document(s) aspergillus galactomannan Ag 0.02 index 0.00-0.49 Aspergillus Galactomannan Ag [place] ([facility]) ID Date Data Source [id number] 07/24/2020 05:47:00 AM EST [place] ([facility]) Name Value Range Interpretation Code Description Data Pilar rce(s) Supporting Document(s) cryptococcus antigen ser negative negative Cryptococcu s Antigen Ser EUGENIO ([facility]) ID Date Data Source [id number] 07/24/2020 05:47:00 AM EST [place] ([facility]) Name Value Range Interpretation Code Description Data Pilar rce(s) Supporting Document(s) fungitell, serum <31 <80 Fungitell, Serum AT [facility]) ID Date Data Source [id number] 07/24/2020 05:47:00 AM EST [place] ([facility]) Name Value Range Interpretation Code Description Data Pilar rce(s) Supporting Document(s) quantiferon criteria . Quantiferon Cri teria EUGENIO ([facility]) quantiferon TB1 Ag value 0.03 IU/mL . Quantiferon TB1 Ag Value [place] ([facility]) quantiferon TB2 Ag value 0.03 IU/mL . Quantiferon TB2 Ag Value [place] ([facility]) quantiferon nil value 0.03 IU/mL . Quantiferon Ni l Value [place] ([facility]) quantiferon-TB gold plus negative negative quantiferon -TB Gold plus [place] ([facility] [facility]) quantiferon mitogen value >10.00 . Quantifero n Mitogen Value [place] ([facility]) ID Date Data Source [id number] 07/24/2020 05:47:00 AM EST EUGEN[place] ([facility]) Name Value Range Interpretation Code Description Data Pilar rce(s) Supporting Document(s) procalcitonin Procalcitonin [place]GEN[place] ([facility]) ID Date Data Source [id number] 07/24/2020 05:47:00 AM EST EUGENIO ([facility]) Name Value Range Interpretation Code Description Data Pilar rce(s) Supporting Document(s) HIV 1&2 screen centaur negative negative HIV 1&2 Scree n Centaur EUGENIO ([facility]) ID Date Data Source [id number] 07/24/2020 05:47:00 AM EST [facility]) Name Value Range Interpretation Code Description Data Pilar rce(s) Supporting Document(s) C reactive protein quantitativ 2.66 mg/dL 0.00-0.30 Above high normal C Reactive Protein Quantitativ [facility]) ID Date Data Source [id number] 07/24/2020 05:47:00 AM EST EUGENIO ([facility]) Name Value Range Interpretation Code Description Data Pilar rce(s) Supporting Document(s) glucose, fasting 193 mg/dL 70-100 Above high normal Glucose, Fas ting EUGENIO ([facility]) blood urea nitrogen 19 mg/dL 7-18 Above high normal Blood Ure a Nitrogen EU[place]IO ([facility]) creatinine for GFR 0.63 mg/dL 0.70-1.30 Below low normal Creatinine for GFR EU[place] ([facility]) glomerular filtration rate > 60.0 >60 Glomerula r Filtration Rate EUGENIO ([facility]) sodium level 139 mEq/L 136-145 Sodium Level EUGENIO ([facility]) potassium serum 4.2 mEq/L 3.5-5.1 Potassium Serum ATHE ([facility]) chloride level 107 mEq/L 98-107 Chloride Level [place] ([facility]) carbon dioxide level 24 mEq/L 21-32 Carbon Dioxide Level EUGENIO ([facility]) anion gap 8 mEq/L 8-16 Anion Gap EU[place] ([facility]) calcium level 8.3 mg/dL 8.5-10.1 Below low normal Calcium Level AT [facility] ([facility]) AST/SGOT 49 U/L 7-37 Above high normal AST/SGOT [place] ([facility]) ALT/SGPT 62 U/L 12-78 ALT/SGPT [place] ([facility]) alkaline phosphatase 62 U/L 45-117 Alkaline Phosph atase [place] ([facility]) bilirubin,total 0.9 mg/dL 0.2-1.0 Bilirubin,total ATHE ([facility]) total protein 6.3 gm/dL 6.4-8.2 Below low normal Total Protein AT [facility] ([facility]) albumin 2.6 gm/dL 3.2-5.2 Below low normal Albumin EUGENIO ( [facility]) albumin/globulin ratio Albumin/globu sandy Ratio [place] ([facility]) ID Date Data Source [id number] 07/24/2020 05:47:00 AM EST EUGENIO ([facility]) Name Value Range Interpretation Code Description Data Pilar rce(s) Supporting Document(s) white blood count 9.1 10 4.0-10.0 White Blood Count EU[place]IO ([facility]) red blood count 4.62 10 4.30-6.10 Red Blood Count ATHE NA ([facility]) hemoglobin 13.1 g/dL 13.5-17.5 Below low normal Hemoglobin EUGENIO ( [facility]) hematocrit 39.6 % 42.0-52.0 Below low normal Hematocrit EUGENIO ( [facility]) mean corpuscular volume 85.7 fL 80.0-96.0 Mean Corpusc ular Volume EUGENIO ([facility]) mean corpuscular hemoglobin 28.4 pg 27.0-33.0 Mean Cor puscular Hemoglobin EU[place]IO ([facility]) mean corpuscular HGB conc 33.1 g/dL 32.0-36.5 Mean Corpu scular HGB Conc EU[place]IO ([facility]) red cell distribution width 12.4 % 11.5-14.5 Red Cell Distribution Width EU[place] ([facility]) platelet count, automated 280 10 150-450 Platelet C ount, Automated [place] ([facility]) neutrophils % 74.7 % 36.0-66.0 Above high normal Neutrophils % A THENA ([facility]) lymph % 16.2 % 24.0-44.0 Below low normal Lymph % EUGENIO ( [facility]) mono % 8.2 % 0.0-5.0 Above high normal [place] % EUGENIO ([facility]) eos % 0.0 % 0.0-3.0 Eos % EUGNEIO ([facility]) baso % 0.1 % 0.0-1.0 Baso % EU[place]IO ([facility]) immature granulocyte % 0.8 % 0-3.0 Immature Gran ulocyte % EUGENIO ([facility]) nucleated red blood cell % 0.0 % 0-0 Nucleated Red Blood Cell % EUGENIO ([facility]) neutrophils # 6.8 10 1.5-8.5 Neutrophils # EUGENIO ( [facility]) lymph # 1.5 10 1.5-5.0 Lymph # EUGENIO ([facility]) mono # 0.7 10 0.0-0.8 [place] # EUGENIO ([facility]) eos # 0.0 10 0.0-0.5 Eos # EUGENIO ([facility]) baso # 0.0 10 0.0-0.2 Baso # EUGENIO ([facility]) ID Date Data Source [id number] 07/24/2020 12:19:00 AM EST EUGENIO ([facility]) Name Value Range Interpretation Code Description Data Pilar rce(s) Supporting Document(s) bedside glucose 213 mg/dL 70-105 Above high normal Bedside Gluco se EUGENIO ([facility]) ID Date Data Source [id number] 07/23/2020 05:35:00 PM EST EUGENIO ([facility]) Name Value Range Interpretation Code Description Data Pilar rce(s) Supporting Document(s) bedside glucose 218 mg/dL 70-105 Above high normal Bedside Gluco se [place] ([facility]) ID Date Data Source [id number] 07/23/2020 12:09:00 PM EST EUGENIO ([facility]) Name Value Range Interpretation Code Description Data Pilar rce(s) Supporting Document(s) bedside glucose 174 mg/dL 70-105 Above high normal Bedside Gluco se [place] ([facility]) ID Date Data Source [id number] 07/23/2020 05:29:00 AM EST EUGENIO ([facility]) Name Value Range Interpretation Code Description Data Pilar rce(s) Supporting Document(s) glucose, fasting 192 mg/dL 70-100 Above high normal Glucose, Fas ting [place] ([facility]) blood urea nitrogen 16 mg/dL 7-18 Blood Urea Nitro gen [place] ([facility]) creatinine for GFR 0.87 mg/dL 0.70-1.30 Creatinine for GF R EUGENIO ([facility]) glomerular filtration rate > 60.0 >60 Glomerula r Filtration Rate [place] ([facility]) sodium level 137 mEq/L 136-145 Sodium Level EU[place]IO ([facility]) chloride level 106 mEq/L 98-107 Chloride Level [place] ([facility]) potassium serum 5.1 mEq/L 3.5-5.1 Potassium Serum ATHE ([facility]) carbon dioxide level 27 mEq/L 21-32 Carbon Dioxide Level EUGENIO ([facility]) anion gap 4 mEq/L 8-16 Below low normal Anion Gap EU[place]IO ( [facility]) calcium level 8.5 mg/dL 8.5-10.1 Calcium Level EUGENIO ( [facility]) AST/SGOT 63 U/L 7-37 Above high normal AST/SGOT [place] ([facility]) ALT/SGPT 65 U/L 12-78 ALT/SGPT [place] ([facility]) alkaline phosphatase 55 U/L 45-117 Alkaline Phosph atase [place] ([facility]) bilirubin,total 1.0 mg/dL 0.2-1.0 Bilirubin,total ATHE ([facility]) total protein 6.5 gm/dL 6.4-8.2 Total Protein EUGENIO ( [facility]) albumin 2.5 gm/dL 3.2-5.2 Below low normal Albumin EU[place] ( [facility]) albumin/globulin ratio Albumin/globu sandy Ratio EUGENIO ([facility]) ID Date Data Source [id number] 07/23/2020 05:29:00 AM EST EUGEN[place] ([facility]) Name Value Range Interpretation Code Description Data Pilar rce(s) Supporting Document(s) white blood count 6.8 10 4.0-10.0 White Blood Count [place] ([facility]) red blood count 4.53 10 4.30-6.10 Red Blood Count ATHE ([facility]) hemoglobin 12.8 g/dL 13.5-17.5 Below low normal Hemoglobin EU[place] ( [facility]) hematocrit 39.0 % 42.0-52.0 Below low normal Hematocrit [place] ( [facility]) mean corpuscular volume 86.1 fL 80.0-96.0 Mean Corpusc ular Volume [place] ([facility]) mean corpuscular hemoglobin 28.3 pg 27.0-33.0 Mean Cor puscular Hemoglobin [place] ([facility]) mean corpuscular HGB conc 32.8 g/dL 32.0-36.5 Mean Corpu scular HGB Conc EU[place] ([facility]) red cell distribution width 12.9 % 11.5-14.5 Red Cell Distribution Width [place] ([facility]) platelet count, automated 269 10 150-450 Platelet C ount, Automated [place] ([facility]) neutrophils % 74.7 % 36.0-66.0 Above high normal Neutrophils % A THENA ([facility]) lymph % 17.0 % 24.0-44.0 Below low normal Lymph % EUGENIO ( [facility]) mono % 8.0 % 0.0-5.0 Above high normal [place] % EU[place] ([facility]) eos % 0.0 % 0.0-3.0 Eos % [place] ([facility]) baso % 0.0 % 0.0-1.0 Baso % [place] ([facility]) immature granulocyte % 0.3 % 0-3.0 Immature Gran ulocyte % EU[place] ([facility]) nucleated red blood cell % 0.0 % 0-0 Nucleated Red Blood Cell % EUGENIO ([facility]) neutrophils # 5.1 10 1.5-8.5 Neutrophils # EUGENIO ( [facility]) lymph # 1.2 10 1.5-5.0 Below low normal Lymph # EUGENIO ( [facility]) mono # 0.5 10 0.0-0.8 [place] # EUGENIO ([facility]) eos # 0.0 10 0.0-0.5 Eos # [place] ([facility]) baso # 0.0 10 0.0-0.2 Baso # EU[place]IO ([facility]) ID Date Data Source [id number] 07/22/2020 09:23:00 PM EST EUGENIO ([facility]) Name Value Range Interpretation Code Description Data Pilar rce(s) Supporting Document(s) bedside glucose 170 mg/dL 70-105 Above high normal Bedside Gluco se [place] ([facility]) ID Date Data Source [id number] 07/22/2020 05:48:00 PM EST EUGENIO ([facility]) Name Value Range Interpretation Code Description Data Pilar rce(s) Supporting Document(s) bedside glucose 193 mg/dL 70-105 Above high normal Bedside Gluco se [place] ([facility]) ID Date Data Source [id number] 07/22/2020 01:40:00 PM EST EUGENIO ([facility]) Name Value Range Interpretation Code Description Data Pilar rce(s) Supporting Document(s) bedside glucose 150 mg/dL 70-105 Above high normal Bedside Gluco se [place] ([facility]) ID Date Data Source [id number] 07/22/2020 04:34:00 AM EST EUGENIO ([facility]) Name Value Range Interpretation Code Description Data Pilar rce(s) Supporting Document(s) erythrocyte sedimentation rate 59 mm/HR 0-15 Above high normal Erythrocyte Sedimentation Rate EUGENIO ([facility]) ID Date Data Source [id number] 07/22/2020 04:34:00 AM EST EU[place]IO ([facility]) Name Value Range Interpretation Code Description Data Pilar rce(s) Supporting Document(s) C reactive protein quantitativ 10.40 mg/dL 0.00-0.30 Above high normal [facility] Date Data Source [id number] 07/22/2020 04:34:00 AM EST EUGENIO ([facility]) Name Value Range Interpretation Code Description Data Pilar rce(s) Supporting Document(s) glucose, fasting 135 mg/dL 70-100 Above high normal Glucose, Fas ting EUGENIO ([facility]) blood urea nitrogen 15 mg/dL 7-18 Blood Urea Nitro gen EUGENIO ([facility]) creatinine for GFR 0.66 mg/dL 0.70-1.30 Below low normal Creatinine for GFR [place] ([facility]) glomerular filtration rate > 60.0 >60 Glomerula r Filtration Rate [place] ([facility]) sodium level 142 mEq/L 136-145 Sodium Level [place]IO ([facility]) potassium serum 4.0 mEq/L 3.5-5.1 Potassium Serum ATHE ([facility]) chloride level 109 mEq/L 98-107 Above high normal Chloride Level [place] ([facility]) carbon dioxide level 27 mEq/L 21-32 Carbon Dioxide Level [place] ([facility]) anion gap 6 mEq/L 8-16 Below low normal Anion Gap [place] ( [facility]) calcium level 8.0 mg/dL 8.5-10.1 Below low normal Calcium Level AT [facility]) AST/SGOT 68 U/L 7-37 Above high normal AST/SGOT [place] ([facility]) ALT/SGPT 84 U/L 12-78 Above high normal ALT/SGPT [place] ([facility]) alkaline phosphatase 57 U/L 45-117 Alkaline Phosph atase [place] ([facility]) bilirubin,total 0.9 mg/dL 0.2-1.0 Bilirubin,total ATHE ([facility]) total protein 6.1 gm/dL 6.4-8.2 Below low normal Total Protein AT [facility]) albumin 2.7 gm/dL 3.2-5.2 Below low normal Albumin [place] ( [facility]) albumin/globulin ratio Albumin/globu sandy Ratio [place] ([facility]) ID Date Data Source [id number] 07/22/2020 04:34:00 AM EST EUGENIO ([facility]) Name Value Range Interpretation Code Description Data Pilar rce(s) Supporting Document(s) white blood count 6.9 10 4.0-10.0 White Blood Count EU[place] ([facility]) red blood count 4.48 10 4.30-6.10 Red Blood Count ATHE NA ([facility]) hemoglobin 12.2 g/dL 13.5-17.5 Below low normal Hemoglobin EUGENIO ( [facility]) hematocrit 38.6 % 42.0-52.0 Below low normal Hematocrit [place] ( [facility]) mean corpuscular volume 86.2 fL 80.0-96.0 Mean Corpusc ular Volume [place] ([facility]) mean corpuscular hemoglobin 27.2 pg 27.0-33.0 Mean Cor puscular Hemoglobin [place] ([facility]) mean corpuscular HGB conc 31.6 g/dL 32.0-36.5 Below low micki l Mean Corpuscular HGB Conc EU[place] ([facility]) red cell distribution width 13.0 % 11.5-14.5 Red Cell Distribution Width [place] ([facility]) platelet count, automated 180 10 150-450 Platelet C ount, Automated [place] ([facility]) neutrophils % 75.2 % 36.0-66.0 Above high normal Neutrophils % A THENA ([facility]) lymph % 18.3 % 24.0-44.0 Below low normal Lymph % EU[place]IO ( [facility]) mono % 5.8 % 0.0-5.0 Above high normal [place] % [place] ([facility]) baso % 0.1 % 0.0-1.0 Baso % [place] ([facility]) eos % 0.0 % 0.0-3.0 Eos % [place] ([facility]) immature granulocyte % 0.6 % 0-3.0 Immature Gran ulocyte % EU[place] ([facility]) nucleated red blood cell % 0.0 % 0-0 Nucleated Red Blood Cell % [place] ([facility]) neutrophils # 5.2 10 1.5-8.5 Neutrophils # [place]IO ( [facility]) lymph # 1.3 10 1.5-5.0 Below low normal Lymph # [place] ( [facility]) mono # 0.4 10 0.0-0.8 [place] # [place] ([facility]) eos # 0.0 10 0.0-0.5 Eos # [place] ([facility]) baso # 0.0 10 0.0-0.2 Baso # [place] ([facility]) ID Date Data Source [id number] 07/21/2020 08:15:00 PM EST [place] ([facility]) Name Value Range Interpretation Code Description Data Pilar rce(s) Supporting Document(s) bedside glucose 121 mg/dL 70-105 Above high normal Bedside Gluco se [place] ([facility]) ID Date Data Source [id number] 07/21/2020 05:05:00 PM EST [place] ([facility]) Name Value Range Interpretation Code Description Data Pilar rce(s) Supporting Document(s) bedside glucose 132 mg/dL 70-105 Above high normal Bedside Gluco se [place] ([facility]) ID Date Data Source [id number] 07/21/2020 11:14:00 AM STU [facility] ([facility]) Name Value Range Interpretation Code Description Data Pilar rce(s) Supporting Document(s) bedside glucose 174 mg/dL 70-105 Above high normal Bedside Gluco se [place] ([facility]) ID Date Data Source [id number] 07/21/2020 04:13:00 AM STU [facility] ([facility]) Name Value Range Interpretation Code Description Data Pilar rce(s) Supporting Document(s) glucose, fasting 151 mg/dL 70-100 Above high normal Glucose, Fas ting EU[place]IO ([facility]) blood urea nitrogen 14 mg/dL 7-18 Blood Urea Nitro gen [place] ([facility]) creatinine for GFR 0.74 mg/dL 0.70-1.30 Creatinine for GF R EU[place] ([facility]) glomerular filtration rate > 60.0 >60 Glomerula r Filtration Rate [place] ([facility]) sodium level 141 mEq/L 136-145 [facility] 107 mEq/L 98-107 Chloride Level EU[place] ([facility]) potassium serum 3.9 mEq/L 3.5-5.1 Potassium Serum ATHE ([facility]) carbon dioxide level 27 mEq/L 21-32 Carbon Dioxide Level EU[place] ([facility]) anion gap 7 mEq/L 8-16 Below low normal Anion Gap EU[place] ( [facility]) calcium level 7.9 mg/dL 8.5-10.1 Below low normal Calcium Level AT [facility] ([facility]) AST/SGOT 84 U/L 7-37 Above high normal AST/SGOT [place] ([facility]) ALT/SGPT 107 U/L 12-78 Above high normal ALT/SGPT [place] ([facility]) alkaline phosphatase 53 U/L 45-117 Alkaline Phosph atase [place] ([facility]) bilirubin,total 0.7 mg/dL 0.2-1.0 Bilirubin,total ATHE ([facility]) total protein 5.9 gm/dL 6.4-8.2 Below low normal Total Protein AT [facility] ([facility]) albumin 2.8 gm/dL 3.2-5.2 Below low normal Albumin EU[place] ( [facility]) albumin/globulin ratio Albumin/globu sandy Ratio [place] ([facility]) ID Date Data Source [id number] 07/21/2020 04:13:00 AM EST [place] ([facility]) Name Value Range Interpretation Code Description Data Pilar rce(s) Supporting Document(s) white blood count 6.1 10 4.0-10.0 White Blood Count [place] ([facility]) red blood count 4.35 10 4.30-6.10 Red Blood Count ATHE ([facility]) hematocrit 37.5 % 42.0-52.0 Below low normal Hematocrit [place] ( [facility]) hemoglobin 12.3 g/dL 13.5-17.5 Below low normal Hemoglobin [place] ( [facility]) mean corpuscular volume 86.2 fL 80.0-96.0 Mean Corpusc ular Volume [place] ([facility]) mean corpuscular hemoglobin 28.3 pg 27.0-33.0 Mean Cor puscular Hemoglobin [place] ([facility]) mean corpuscular HGB conc 32.8 g/dL 32.0-36.5 Mean Corpu scular HGB Conc EU[place] ([facility]) red cell distribution width 13.0 % 11.5-14.5 Red Cell Distribution Width [place] ([facility]) platelet count, automated 139 10 150-450 Below low micki l Platelet Count, Automated [place] ([facility]) neutrophils % 68.6 % 36.0-66.0 Above high normal Neutrophils % A THENA ([facility]) lymph % 26.8 % 24.0-44.0 Lymph % [place] ([facility]) mono % 4.1 % 0.0-5.0 [place] % [place] ([facility]) eos % 0.0 % 0.0-3.0 Eos % E[place] ([facility]) baso % 0.2 % 0.0-1.0 Baso % EU[place] ([facility]) immature granulocyte % 0.3 % 0-3.0 Immature Gran ulocyte % EUGENIO ([facility]) nucleated red blood cell % 0.0 % 0-0 Nucleated Red Blood Cell % EU[place]IO ([facility]) neutrophils # 4.2 10 1.5-8.5 Neutrophils # EUGENIO ( [facility]) lymph # 1.6 10 1.5-5.0 Lymph # [place] ([facility]) mono # 0.3 10 0.0-0.8 [place] # EUGENIO ([facility]) eos # 0.0 10 0.0-0.5 Eos # [place] ([facility]) baso # 0.0 10 0.0-0.2 Baso # [place] ([facility]) ID Date Data Source [id number] 07/20/2020 08:41:00 PM EST EUGENIO ([facility]) Name Value Range Interpretation Code Description Data Pilar rce(s) Supporting Document(s) bedside glucose 160 mg/dL 70-105 Above high normal Bedside Gluco se EUGENIO ([facility]) ID Date Data Source [id number] 07/20/2020 05:55:00 PM EST EUGENIO ([facility]) Name Value Range Interpretation Code Description Data Pilar rce(s) Supporting Document(s) bedside glucose 163 mg/dL 70-105 Above high normal Bedside Gluco se [place]IO ([facility]) ID Date Data Source [id number] 07/20/2020 11:40:00 AM EST EUGENIO ([facility]) Name Value Range Interpretation Code Description Data Pilar rce(s) Supporting Document(s) bedside glucose 175 mg/dL 70-105 Above high normal Bedside Gluco se [place] ([facility]) ID Date Data Source [id number] 07/20/2020 04:47:00 AM EST EUGENIO ([facility]) Name Value Range Interpretation Code Description Data Pilar rce(s) Supporting Document(s) nt-pro BNP 19 pg/mL <125 Nt-pro BNP [place] ([facility]) ID Date Data Source [id number] 07/20/2020 04:47:00 AM EST EUGENIO ([facility]) Name Value Range Interpretation Code Description Data Pilar rce(s) Supporting Document(s) D-dimer quant 877.68 NG/mL <500 Above high normal D-dimer Quant [place] ([facility]) ID Date Data Source [id number] 07/20/2020 04:47:00 AM EST EUGENIO ([facility]) Name Value Range Interpretation Code Description Data Pilar rce(s) Supporting Document(s) erythrocyte sedimentation rate 41 mm/HR 0-15 Above high normal Erythrocyte Sedimentation Rate EUGENIO ([facility]) ID Date Data Source [id number] 07/20/2020 04:47:00 AM EST EUGENIO ([facility]) Name Value Range Interpretation Code Description Data Pilar rce(s) Supporting Document(s) white blood count 4.8 10 4.0-10.0 White Blood Count EU[place]IO ([facility]) hemoglobin 13.0 g/dL 13.5-17.5 Below low normal Hemoglobin EUGENIO ( [facility]) red blood count 4.62 10 4.30-6.10 Red Blood Count ATHE ([facility]) mean corpuscular volume 87.2 fL 80.0-96.0 Mean Corpusc ular Volume EUGENIO ([facility]) hematocrit 40.3 % 42.0-52.0 Below low normal Hematocrit EUGENIO ( [facility]) mean corpuscular HGB conc 32.3 g/dL 32.0-36.5 Mean Corpu scular HGB Conc EUGEN[place] ([facility]) mean corpuscular hemoglobin 28.1 pg 27.0-33.0 Mean Cor puscular Hemoglobin [facility] ([facility]) platelet count, automated 126 10 150-450 Below low micki l Platelet Count, Automated [place] ([facility]) red cell distribution width 12.8 % 11.5-14.5 Red Cell Distribution Width [place] ([facility]) neutrophils % 67.5 % 36.0-66.0 Above high normal Neutrophils % A THENA ([facility]) lymph % 28.2 % 24.0-44.0 Lymph % [place] ([facility]) mono % 4.1 % 0.0-5.0 [place] % [place] ([facility]) baso % 0.0 % 0.0-1.0 Baso % [place] ([facility]) eos % 0.0 % 0.0-3.0 Eos % [place] ([facility]) immature granulocyte % 0.2 % 0-3.0 Immature Gran ulocyte % [place] ([facility]) nucleated red blood cell % 0.0 % 0-0 Nucleated Red Blood Cell % [place] ([facility]) lymph # 1.4 10 1.5-5.0 Below low normal Lymph # EUGEN[place] ( [facility]) neutrophils # 3.3 10 1.5-8.5 Neutrophils # [place] ( [facility]) mono # 0.2 10 0.0-0.8 [place] # [place] ([facility]) eos # 0.0 10 0.0-0.5 Eos # [place] ([facility]) baso # 0.0 10 0.0-0.2 Baso # [place] ([facility]) ID Date Data Source [id number] 07/20/2020 04:47:00 AM EST [place] ([facility]) Name Value Range Interpretation Code Description Data Pilar rce(s) Supporting Document(s) C reactive protein quantitativ 5.13 mg/dL 0.00-0.30 Above high normal C Reactive Protein Quantitativ [place] ([facility]) ID Date Data Source [id number] 07/20/2020 04:47:00 AM EST [place] ([facility]) Name Value Range Interpretation Code Description Data Pilar rce(s) Supporting Document(s) ferritin 1019 NG/mL 26-388 Above high normal Ferritin [place] ([facility]) ID Date Data Source [id number] 07/20/2020 04:47:00 AM EST [place] ([facility]) Name Value Range Interpretation Code Description Data Pilar rce(s) Supporting Document(s) glucose, fasting 179 mg/dL 70-100 Above high normal Glucose, Fas ting [place] ([facility]) creatinine for GFR 0.76 mg/dL 0.70-1.30 Creatinine for GF R [place] ([facility]) blood urea nitrogen 9 mg/dL 7-18 Blood Urea Nitro gen [place] ([facility]) glomerular filtration rate > 60.0 >60 Glomerula r Filtration Rate [place] ([facility]) sodium level 136 mEq/L 136-145 [facility] potassium serum 3.9 mEq/L 3.5-5.1 Potassium Serum ATHE ([facility]) chloride level 104 mEq/L 98-107 Chloride Level [place] ([facility]) carbon dioxide level 28 mEq/L 21-32 Carbon Dioxide Level [place] ([facility]) anion gap 4 mEq/L 8-16 Below low normal Anion Gap [place] ( [facility]) calcium level 8.2 mg/dL 8.5-10.1 Below low normal Calcium Level AT [facility]) AST/SGOT 105 U/L 7-37 Above high normal AST/SGOT [place] ([facility]) ALT/SGPT 139 U/L 12-78 Above high normal ALT/SGPT [place] ([facility]) alkaline phosphatase 56 U/L 45-117 Alkaline Phosph atase [place] ([facility]) bilirubin,total 0.6 mg/dL 0.2-1.0 Bilirubin,total ATHE ([facility]) albumin 3.0 gm/dL 3.2-5.2 Below low normal Albumin [place] ( [facility]) total protein 6.2 gm/dL 6.4-8.2 Below low normal Total Protein AT [facility] ([facility]) albumin/globulin ratio Albumin/globu sandy Ratio [place] ([facility]) ID Date Data Source [id number] 07/19/2020 09:56:00 PM EST [place] ([facility]) Name Value Range Interpretation Code Description Data Pilar rce(s) Supporting Document(s) bedside glucose 201 mg/dL 70-105 Above high normal Bedside Gluco se [place] ([facility]) ID Date Data Source [id number] 07/19/2020 06:14:00 PM EST [place] ([facility]) Name Value Range Interpretation Code Description Data Pilar rce(s) Supporting Document(s) MRSA PCR screen not detected negative MRSA PCR Screen AT [facility] ([facility]) ID Date Data Source [id number] 07/19/2020 06:12:00 PM EST [place] ([facility]) Name Value Range Interpretation Code Description Data Pilar rce(s) Supporting Document(s) bedside glucose 155 mg/dL 70-105 Above high normal Bedside Gluco se [place] ([facility]) ID Date Data Source [id number] 07/19/2020 11:34:00 AM EST [place] ([facility]) Name Value Range Interpretation Code Description Data Pilar rce(s) Supporting Document(s) bedside glucose 215 mg/dL 70-105 Above high normal Bedside Gluco se [place] ([facility]) ID Date Data Source [id number] 07/19/2020 09:35:00 AM EST [place] ([facility]) Name Value Range Interpretation Code Description Data Pilar rce(s) Supporting Document(s) anti-mitochondrial antibody <20.0 0.0-20.0 Anti-marietta ochondrial Antibody [place] ([facility]) ID Date Data Source [id number] 07/19/2020 09:35:00 AM EST [place] ([facility]) Name Value Range Interpretation Code Description Data Pilar rce(s) Supporting Document(s) IgG subclass 1 541 mg/dL 248-810 IgG Subclass 1 [place] ([facility]) IgG subclass 2 227 mg/dL 130-555 IgG Subclass 2 [place] ([facility]) IgG subclass 3 60 mg/dL 15-102 IgG Subclass 3 [place] ([facility]) IgG subclass 4 27 mg/dL 2-96 IgG Subclass 4 [place] ([facility]) IgG serum (part of subclasses) 936 mg/dL 603-1613 IgG Serum (Part of Subclasses) [place] ([facility]) ID Date Data Source [id number] 07/19/2020 09:35:00 AM EST [place] ([facility]) Name Value Range Interpretation Code Description Data Pilar rce(s) Supporting Document(s) liver-kidney microsomal marcy <20.1 0.0-20.0 Liver-ki dney Microsomal Marcy [place] ([facility]) ID Date Data Source [id number] 07/19/2020 09:35:00 AM EST [place] ([facility]) Name Value Range Interpretation Code Description Data Pilar rce(s) Supporting Document(s) IBRAHIMA (hep2) positive . Abnormal (applies to non-numeric res ults) IBRAHIMA (Hep2) [place] ([facility]) IBRAHIMA homogeneous pattern tnp . IB[place]HIMA Homogene ous Pattern [place] ([facility]) IBRAHIMA nucleolar pattern tnp . IBRAHIMA Nucleolar Pattern [place] ([facility]) IBRAHIMA speckled pattern 1:80 . IBRAHIMA Speckled Pa ttern [place] ([facility]) IBRAHIMA centromere pattern tnp . IBRAHIMA Centromer e Pattern [place] ([facility]) IBRAHIMA spindle apparatus pattern tnp . IBRAHIMA Sp indle Apparatus Pattern [place] ([facility]) IBRAHIMA nuclear membrane pattern tnp . IB[place]HIMA Nuc lear Membrane Pattern [place] ([facility]) IBRAHIMA midbody pattern tnp . IBRAHIMA Midbody Pa ttern [place] ([facility]) IBRAHIMA nuclear dot pattern tnp . IB[place]HIMA Nuclea r Dot Pattern [place] ([facility]) IBRAHIMA centriole pattern tnp . IBRAHIMA Centriole Pattern [place] ([facility]) IBRAHIMA pcna pattern tnp . IBRAHIMA Pcna Pattern [place] ([facility]) IBRAHIMA note . IBRAHIMA Note [place] ([facility]) ID Date Data Source [id number] 07/19/2020 09:35:00 AM EST [place] ([facility]) Name Value Range Interpretation Code Description Data Pilar rce(s) Supporting Document(s) ebv viral capsid Ag IgM <36.0 0.0-35.9 Ebv Viral Ca psid Ag IgM [facility]) ID Date Data Source [id number] 07/19/2020 09:35:00 AM EST [facility]) Name Value Range Interpretation Code Description Data Pilar rce(s) Supporting Document(s) ebv viral capsid Ag IgG 97.4 U/mL 0.0-17.9 Above high normal Ebv Viral Capsid Ag IgG [facility]) ID Date Data Source [id number] 07/19/2020 09:35:00 AM EST [facility]) Name Value Range Interpretation Code Description Data Pilar rce(s) Supporting Document(s) ebv PCR qual whole bld negative negative Ebv PCR Qual Whole Bld [facility]) ID Date Data Source [id number] 07/19/2020 09:35:00 AM EST [facility]) Name Value Range Interpretation Code Description Data Pilar rce(s) Supporting Document(s) anti-smooth muscle antibody 9 units 0-19 Anti-smo oth Muscle Antibody [place] ([facility]) ID Date Data Source [id number] 07/19/2020 09:35:00 AM EST [facility]) Name Value Range Interpretation Code Description Data Pilar rce(s) Supporting Document(s) ebv viral capsid Ag IgG 96.6 U/mL 0.0-17.9 Above high normal Ebv Viral Capsid Ag IgG [place] ([facility]) ebv viral capsid Ag IgM <36.0 0.0-35.9 Ebv Viral Ca psid Ag IgM [place] ([facility]) ebv interpretation . Ebv Interpretatio n [place] ([facility]) ebv Ab to nuclear antigen 554.0 U/mL 0.0-17.9 Above high norm al Ebv Ab to Nuclear Antigen [place] ([facility]) ID Date Data Source [id number] 07/19/2020 09:35:00 AM EST [place] ([facility]) Name Value Range Interpretation Code Description Data Pilar rce(s) Supporting Document(s) D-dimer quant 671.07 NG/mL <500 Above high normal D-dimer Quant [place] ([facility]) ID Date Data Source [id number] 07/19/2020 09:35:00 AM EST [place] ([facility]) Name Value Range Interpretation Code Description Data Pilar rce(s) Supporting Document(s) fibrinogen 394 mg/dL 221-452 Fibrinogen [place] ([facility]) ID Date Data Source [id number] 07/19/2020 09:35:00 AM EST [place] ([facility]) Name Value Range Interpretation Code Description Data Pilar rce(s) Supporting Document(s) partial thromboplastin time 35.2 seconds 24.2-38.5 Partial Thromboplastin Time [place] ([facility]) ID Date Data Source [id number] 07/19/2020 09:35:00 AM EST [place] ([facility]) Name Value Range Interpretation Code Description Data Pilar rce(s) Supporting Document(s) prothrombin time 14.6 seconds 12.5-14.3 Above high normal Prothrombi n Time [place] ([facility]) INR Inr [place] ([facility]) ID Date Data Source [id number] 07/19/2020 09:35:00 AM EST [place] ([facility]) Name Value Range Interpretation Code Description Data Pilar rce(s) Supporting Document(s) mono reflex ebv comp negative negative [place] Reflex Ebv Comp [place] ([facility]) ID Date Data Source [id number] 07/19/2020 09:35:00 AM EST [place] ([facility]) Name Value Range Interpretation Code Description Data Pilar rce(s) Supporting Document(s) acetaminophen level < 2.0 10.0-30.0 Below low normal Acetaminop hen Level [facility]) ID Date Data Source [id number] 07/19/2020 09:35:00 AM EST [facility]) Name Value Range Interpretation Code Description Data Pilar rce(s) Supporting Document(s) salicylate level < 1.7 5.0-30.0 Below low normal Salicylate Le maricel [facility]) ID Date Data Source [id number] 07/19/2020 09:35:00 AM EST [facility]) Name Value Range Interpretation Code Description Data Pilar rce(s) Supporting Document(s) CPK creatine phosphokinase 114 U/L 39-308 CPK Creat ine Phosphokinase [facility]) ID Date Data Source [id number] 07/19/2020 09:28:00 AM EST [facility]) Name Value Range Interpretation Code Description Data Pilar rce(s) Supporting Document(s) mycoplasma pneumoniae IgM <770 0-769 Mycoplasma Pneumoniae IgM [place] ([facility]) mycoplasma pneumoniae IgG 436 U/mL 0-99 Above high norm al Mycoplasma Pneumoniae IgG [facility]) ID Date Data Source [id number] 07/19/2020 09:28:00 AM EST [facility]) Name Value Range Interpretation Code Description Data Pilar rce(s) Supporting Document(s) chlamydia psittaci IgG < 1:100 Chlamydia Psi ttaci IgG [place] ([facility]) chlamydia trachomatis IgM < 1:10 < 1:10 Chlamydia Trachomatis IgM [place] ([facility]) chlamydia trachomatis IgG < 1:100 Chlamydia Trachomatis IgG [place] ([facility]) chlamydia pneumoniae IgG 1:100 < 1:100 Abnorma l (applies to non-numeric results) Chlamydia Pneumoniae IgG [place] ([facility]) chlamydia psittaci IgM < 1:10 < 1:10 Chlamydia Psi ttaci IgM [place] ([facility]) chlamydia pneumoniae IgM < 1:10 < 1:10 Chlamydia P neumoniae IgM [place] ([facility]) ID Date Data Source [id number] 07/19/2020 09:28:00 AM EST [place] ([facility]) Name Value Range Interpretation Code Description Data Pilar rce(s) Supporting Document(s) L pneumophilia 1-6 IgM < 1:16 < 1:16 L Pneumophili a 1-6 IgM [place] ([facility]) ID Date Data Source [id number] 07/19/2020 09:28:00 AM EST [facility]) Name Value Range Interpretation Code Description Data Pilar rce(s) Supporting Document(s) L pneumophilia 1-6 IgG <1:128 <1:128 L Pneumophili a 1-6 IgG [place] ([facility]) ID Date Data Source [id number] 07/19/2020 05:28:00 AM EST [facility]) Name Value Range Interpretation Code Description Data Pilar rce(s) Supporting Document(s) hepatitis B core antibody IgG negative negative Hepati tis B Core Antibody IgG [facility]) ID Date Data Source [id number] 07/19/2020 05:28:00 AM EST [facility]) Name Value Range Interpretation Code Description Data Pilar rce(s) Supporting Document(s) hepatitis B surf Ab quant <3.1 immunity>9.9 Below low micki l Hepatitis B Surf Ab Quant [place] ([facility]) ID Date Data Source [id number] 07/19/2020 05:28:00 AM EST [place] ([facility]) Name Value Range Interpretation Code Description Data Pilar rce(s) Supporting Document(s) hepatitis B surface antigen negative negative Hepatiti s B Surface Antigen [place] ([facility]) hepatitis C virus marcy index 0.1 index <0.8 Hepatiti s C Virus Marcy Index [place] ([facility]) hepatitis B core antibody IgM negative negative Hepati tis B Core Antibody IgM [place] ([facility]) hepatitis A antibody IgM negative negative Hepatitis a Antibody IgM [place] ([facility]) ID Date Data Source [id number] 07/19/2020 05:28:00 AM EST [place] ([facility]) Name Value Range Interpretation Code Description Data Pilar rce(s) Supporting Document(s) C reactive protein quantitativ 2.43 mg/dL 0.00-0.30 Above high normal C Reactive Protein Quantitativ [place] ([facility]) ID Date Data Source [id number] 07/19/2020 05:28:00 AM EST [place] ([facility]) Name Value Range Interpretation Code Description Data Pilar rce(s) Supporting Document(s) hepatitis B surface antibody negative positive Hepatit is B Surface Antibody [place] ([facility]) ID Date Data Source [id number] 07/19/2020 05:28:00 AM EST [facility]) Name Value Range Interpretation Code Description Data Pilar rce(s) Supporting Document(s) glucose, fasting 252 mg/dL 70-100 Above high normal Glucose, Fas ting [place] ([facility]) blood urea nitrogen 10 mg/dL 7-18 Blood Urea Nitro gen [place] ([facility]) creatinine for GFR 0.88 mg/dL 0.70-1.30 Creatinine for GF R [place] ([facility]) glomerular filtration rate > 60.0 >60 Glomerula r Filtration Rate [place] ([facility]) potassium serum 3.6 mEq/L 3.5-5.1 Potassium Serum ATHE NA ([facility]) sodium level 136 mEq/L 136-145 Sodium Level [facility] ([facility]) carbon dioxide level 26 mEq/L 21-32 Carbon Dioxide Level [place] ([facility]) chloride level 104 mEq/L 98-107 Chloride Level [place] ([facility]) calcium level 7.5 mg/dL 8.5-10.1 Below low normal Calcium Level AT [facility]) anion gap 6 mEq/L 8-16 Below low normal Anion Gap [place] ( [facility]) AST/SGOT 130 U/L 7-37 Above high normal AST/SGOT [place] ([facility]) ALT/SGPT 184 U/L 12-78 Above high normal ALT/SGPT [place] ([facility]) alkaline phosphatase 64 U/L 45-117 Alkaline Phosph atase [place] ([facility]) total protein 6.5 gm/dL 6.4-8.2 Total Protein [place] ( [facility]) bilirubin,total 0.6 mg/dL 0.2-1.0 Bilirubin,total ATHE ([facility]) albumin/globulin ratio Albumin/globu sandy Ratio [place] ([facility]) albumin 3.3 gm/dL 3.2-5.2 Albumin [place] ([facility]) ID Date Data Source [id number] 07/19/2020 05:28:00 AM EST [place] ([facility]) Name Value Range Interpretation Code Description Data Pilar rce(s) Supporting Document(s) erythrocyte sedimentation rate 20 mm/HR 0-15 Above high normal Erythrocyte Sedimentation Rate [place] ([facility]) ID Date Data Source [id number] 07/19/2020 05:28:00 AM EST [place] ([facility]) Name Value Range Interpretation Code Description Data Pilar rce(s) Supporting Document(s) white blood count 4.1 10 4.0-10.0 White Blood Count [place] ([facility]) red blood count 4.87 10 4.30-6.10 Red Blood Count ATHE NA ([facility]) hemoglobin 13.2 g/dL 13.5-17.5 Below low normal Hemoglobin [place] ( [facility]) hematocrit 41.5 % 42.0-52.0 Below low normal Hematocrit [place] ( [facility]) mean corpuscular hemoglobin 27.1 pg 27.0-33.0 Mean Cor puscular Hemoglobin [place] ([facility]) mean corpuscular volume 85.2 fL 80.0-96.0 Mean Corpusc ular Volume [place] ([facility]) mean corpuscular HGB conc 31.8 g/dL 32.0-36.5 Below low micki l Mean Corpuscular HGB Conc [place] ([facility]) red cell distribution width 12.5 % 11.5-14.5 Red Cell Distribution Width [place] ([facility]) platelet count, automated 108 10 150-450 Below low micki l Platelet Count, Automated [place] ([facility]) neutrophils % 67.4 % 36.0-66.0 Above high normal Neutrophils % A THENA ([facility]) lymph % 27.3 % 24.0-44.0 Lymph % [place] ([facility]) eos % 0.0 % 0.0-3.0 Eos % [place] ([facility]) mono % 4.9 % 0.0-5.0 [place] % [place] ([facility]) immature granulocyte % 0.2 % 0-3.0 Immature Gran ulocyte % [place] ([facility]) baso % 0.2 % 0.0-1.0 Baso % [place] ([facility]) nucleated red blood cell % 0.0 % 0-0 Nucleated Red Blood Cell % [place] ([facility]) neutrophils # 2.8 10 1.5-8.5 Neutrophils # [place] ( [facility]) mono # 0.2 10 0.0-0.8 [place] # [place] ([facility]) lymph # 1.1 10 1.5-5.0 Below low normal Lymph # [place] ( [facility]) eos # 0.0 10 0.0-0.5 Eos # [place] ([facility]) baso # 0.0 10 0.0-0.2 Baso # [place] ([facility]) ID Date Data Source [id number] 07/19/2020 05:25:00 AM EST [place] ([facility]) Name Value Range Interpretation Code Description Data Pilar rce(s) Supporting Document(s) procalcitonin Procalcitonin [place] ([facility]) ID Date Data Source [id number] 07/18/2020 11:49:00 PM EST [facility] Name Value Range Interpretation Code Description Data Pilar rce(s) Supporting Document(s) SARS-CoV-2 (COVID 19) [facility] This lab was ordered by [facility] a nd reported by [facility]. ID Date Data Source [id number] 07/18/2020 11:49:00 PM EST [place] ([facility]) Name Value Range Interpretation Code Description Data Pilar rce(s) Supporting Document(s) ID Date Data Source [id number] 07/18/2020 11:49:00 PM EST [place] ([facility]) Name Value Range Interpretation Code Description Data Pilar rce(s) Supporting Document(s) ABG partial pressure CO2 44.7 mmHg 35.0-45.0 ABG Partial Pressure CO2 [place] ([facility]) ABG pH (arterial) 7.368 units 7.350-7.450 ABG pH (Arterial ) [place] ([facility]) ABG partial pressure O2 85.3 mmHg 75.0-100.0 ABG Partial Pressure O2 [place] ([facility]) ABG HCO3 25.1 mEq/L 22.0-26.0 Abg Hco3 [place] ([facility]) ABG total CO2 26.5 mEq/L 22.0-29.0 ABG Total CO2 [place] ( [facility]) ABG standard HCO3 24.1 mEq/L 22.0-26.0 ABG Standard HCO3 [place] ([facility]) ABG base excess -2.0-2.0 ABG Base Excess ATHE NA ([facility]) ABG O2 saturation 96.5 % 95.0-99.0 ABG O2 Saturation [place] ([facility]) ID Date Data Source [id number] 07/18/2020 11:34:00 PM EST [place] ([facility]) Name Value Range Interpretation Code Description Data Pilar rce(s) Supporting Document(s) bedside glucose 178 mg/dL 70-105 Above high normal Bedside Gluco se [facility]) ID Date Data Source [id number] 07/18/2020 06:00:00 PM EST [facility] Name Value Range Interpretation Code Description Data Pilar rce(s) Supporting Document(s) SARS coronavirus 2 RNA [Presence] in Res piratory specimen by JUJU with probe detection [facility] This lab was ordered by [facility] a nd reported by [facility]. ID Date Data Source [id number] 07/18/2020 06:00:00 PM EST [place] ([facility]) Name Value Range Interpretation Code Description Data Pilar rce(s) Supporting Document(s) influenza A amplification negative negative Influenza a Amplification [place] ([facility]) influenza B amplification negative negative Influenza B Amplification [place] ([facility]) RSV amplification negative negative RSV Amplification [place] ([facility]) sars covid-19 amplification negative negative Sars Cov id-19 Amplification [place] ([facility]) ID Date Data Source [id number] 07/18/2020 05:34:00 PM EST [place] ([facility]) Name Value Range Interpretation Code Description Data Pilar rce(s) Supporting Document(s) ID Date Data Source [id number] 07/18/2020 05:33:00 PM EST [place] ([facility]) Name Value Range Interpretation Code Description Data Pilar rce(s) Supporting Document(s) blood urea nitrogen 9 mg/dL 7-18 Blood Urea Nitro gen [place] ([facility]) creatinine for GFR 1.05 mg/dL 0.70-1.30 Creatinine for GF R [place] ([facility]) glucose, fasting 276 mg/dL 70-100 Above high normal Glucose, Fas ting [place] ([facility]) sodium level 137 mEq/L 136-145 Sodium Level [facility] ([facility]) glomerular filtration rate > 60.0 >60 Glomerula r Filtration Rate [place] ([facility]) carbon dioxide level 28 mEq/L 21-32 Carbon Dioxide Level [place] ([facility]) potassium serum 3.5 mEq/L 3.5-5.1 Potassium Serum ATH NA ([facility]) chloride level 101 mEq/L 98-107 Chloride Level [place] ([facility] [facility]) anion gap 8 mEq/L 8-16 Anion Gap [place] ([facility]) calcium level 8.0 mg/dL 8.5-10.1 Below low normal Calcium Level AT [place] ([facility]) ID Date Data Source [id number] 07/18/2020 05:33:00 PM EST [place] ([facility]) Name Value Range Interpretation Code Description Data Pilar rce(s) Supporting Document(s) AST/SGOT 158 U/L 7-37 Above high normal AST/SGOT [place] ([facility]) ALT/SGPT 218 U/L 12-78 Above high normal ALT/SGPT [place] ([facility]) alkaline phosphatase 70 U/L 45-117 Alkaline Phosph atase [place] ([facility]) bilirubin,total 0.6 mg/dL 0.2-1.0 Bilirubin,total ATHE NA ([facility]) total protein 7.2 gm/dL 6.4-8.2 Total Protein [place] ( [facility]) bilirubin,direct 0.3 mg/dL 0.0-0.2 Above high normal Bilirubin,di rect [place] ([facility]) albumin 3.8 gm/dL 3.2-5.2 Albumin [place] ([facility]) albumin/globulin ratio Albumin/globu sandy Ratio [place] ([facility]) ID Date Data Source [id number] 07/18/2020 05:33:00 PM EST [place] ([facility]) Name Value Range Interpretation Code Description Data Pilar rce(s) Supporting Document(s) lactic acid sepsis protocol 2.0 mmol/L 0.4-2.0 Lactic A saima Sepsis Protocol [place] ([facility]) ID Date Data Source [id number] 07/18/2020 05:33:00 PM EST [place] ([facility]) Name Value Range Interpretation Code Description Data Pilar rce(s) Supporting Document(s) red blood count 5.23 10 4.30-6.10 Red Blood Count ATHE ([facility]) white blood count 3.3 10 4.0-10.0 Below low normal White Blood Count [place] ([facility]) hematocrit 44.7 % 42.0-52.0 Hematocrit [place] ([facility]) mean corpuscular volume 85.5 fL 80.0-96.0 Mean Corpusc ular Volume [place] ([facility]) hemoglobin 14.4 g/dL 13.5-17.5 Hemoglobin [place] ([facility]) red cell distribution width 12.4 % 11.5-14.5 Red Cell Distribution Width [place] ([facility]) mean corpuscular hemoglobin 27.5 pg 27.0-33.0 Mean Cor puscular Hemoglobin [place] ([facility]) mean corpuscular HGB conc 32.2 g/dL 32.0-36.5 Mean Corpu scular HGB Conc [place] ([facility]) lymph % 29.4 % 24.0-44.0 Lymph % [place] ([facility]) platelet count, automated 114 10 150-450 Below low micki l Platelet Count, Automated [place] ([facility]) neutrophils % 64.2 % 36.0-66.0 Neutrophils % [place] ( [facility]) baso % 0.0 % 0.0-1.0 Baso % [place] ([facility]) mono % 5.8 % 0.0-5.0 Above high normal [place] % [place] ([facility]) eos % 0.0 % 0.0-3.0 Eos % [place] ([facility]) neutrophils # 2.1 10 1.5-8.5 Neutrophils # [place] ( [facility]) nucleated red blood cell % 0.0 % 0-0 Nucleated Red Blood Cell % [place] ([facility]) immature granulocyte % 0.6 % 0-3.0 Immature Gran ulocyte % [place] ([facility]) mono # 0.2 10 0.0-0.8 [place] # [place] ([facility]) eos # 0.0 10 0.0-0.5 Eos # [place] ([facility]) baso # 0.0 10 0.0-0.2 Baso # [place] ([facility]) lymph # 1.0 10 1.5-5.0 Below low normal Lymph # [place] ( [facility]) ID Date Data Source [id number] 07/15/2020 11:34:00 PM EST [facility] Name Value Range Interpretation Code Description Data Pilar rce(s) Supporting Document(s) SARS coronavirus 2 RNA [Presence] in Res piratory specimen by JUJU with probe detection [facility] This lab was ordered by [facility] a nd reported by [facility]. ID Date Data Source [id number] 07/11/2020 09:28:00 PM EST [place] ([facility]) Name Value Range Interpretation Code Description Data Pilar rce(s) Supporting Document(s) influenza A amplification negative negative Influenza a Amplification [place] ([facility]) sars covid-19 amplification negative negative Sars Cov id-19 Amplification [place] ([facility]) influenza B amplification negative negative Influenza B Amplification [place] ([facility]) RSV amplification negative negative RSV Amplification [place] ([facility]) ID Date Data Source [id number] 07/11/2020 09:28:00 PM EST [facility] Name Value Range Interpretation Code Description Data Pilar rce(s) Supporting Document(s) SARS coronavirus 2 RNA [Presence] in Res piratory specimen by JUJU with probe detection [facility] This lab was ordered by [facility] a nd reported by [facility]. ID Date Data Source [id number] 06/19/2020 12:00:00 AM EST [place] ([facility]) Name Value Range Interpretation Code Description Data Pilar rce(s) Supporting Document(s) Hemoglobin A1c/Hemoglobin.total in Blood 10.8 % Above high normal Hba1C [place] ([facility]) Procedure Social History Code Duration Value Status Description Data Source(s ) Smoking 11/02/2020 12:00:00 AM EDT Unknown if ever smoked comp leted Unknown if ever smoked [facility] ([facility]) Smoking 10/26/2020 12:00:00 AM EDT Unknown if ever smoked comp leted Unknown if ever smoked [facility] ([facility]) Smoking 10/22/2020 12:00:00 AM EDT Unknown if ever smoked comp leted Unknown if ever smoked [facility] ([facility]) Smoking 10/16/2020 12:00:00 AM EDT Unknown if ever smoked comp leted Unknown if ever smoked [facility] ([facility]) 08/24/2020 12:00:00 AM EST Quit completed Quit MEDENT ([facility], ) Vital Signs ID Date Data Source [id number] Name Value Range Interpretation Code Description Data Source(s) Systolic blood pressure 122 mm[Hg] 122 mm[Hg] M EDENT ([facility], ) Diastolic blood pressure 72 mm[Hg] 72 mm[Hg] MED[facility] ([facility]) Heart rate 82 /min 82 /min [facility] ([facility]) Oxygen saturation in Arterial blood by Pulse oximetry 98 % 98 % [facility] ([facility]) Body temperature 96.8 [degF] 96.8 [degF] [facility] ([facility]) Body height 69 [in_i] 69 [in_i] [facility] ([facility]) 5'9" Body weight 197.00 [lb_av] 197.00 [lb_av] MEDEN T ([facility]) Body mass index (BMI) [Ratio] 29.1 kg/m2 29.1 k g/m2 [facility] ([facility]) [place] body weight 160 [lb_av] 160 [lb_av] MEDEN T ([facility]) Body weight 89.359 kg 89.[address] [facility] ([facility]) Body surface area Derived from formula 2.05 m2 2.[address] [facility] ([facility]) Systolic blood pressure 118 mm[Hg] 118 mm[facility]Hg] [facility] Diastolic blood pressure 74 mm[Hg] 74 mm[Hg] [facility] ([facility]) Heart rate 69 /min 69 /min [facility] ([facility]) Oxygen saturation in Arterial blood by Pulse oximetry 96 % 96 % [facility] ([facility]) Body temperature 96.3 [degF] 96.3 [degF] [facility] ([facility]) Body height 69 [in_i] 69 [in_i] [facility] ([facility]) 5'9" Body weight 198.38 [lb_av] 198.38 [lb_av] MEDEN T ([facility]) Body mass index (BMI) [Ratio] 29.3 kg/m2 29.3 k g/m2 [facility] ([facility]) [place] body weight 160 [lb_av] 160 [lb_av] MEDEN T ([facility]) Body weight 89.983 kg 89.[address] [facility] Body surface area Derived from formula 2.06 m2 2.06 m2 [place] ([facility], ) Diastolic blood pressure 80 mm[Hg] 80 mm[Hg] [place] ([facility]) Body height 68 [in_i] 68 [in_i] [place] ([facility]) Body mass index (BMI) [Ratio] 30 kg/m2 30 kg/ m2 [place] ([facility]) Systolic blood pressure 123 mm[Hg] 123 mm[Hg] Terrance THENA ([facility]) Body weight 3158.4 [oz_av] 3158.4 [oz_av] ATHMAYRA A ([facility]) Patient Treatment Plan of Care Planned Activity Planned Date Details Description Data Source (s) Sucralfate 1000 MG Oral Tablet [place] ([facility]) Metformin hydrochloride 500 MG Oral Tablet [place] ([facility]) Acetaminophen 325 MG / Hydrocodone Bitartrate 5 MG Oral Tablet [place] ([facility]) first mouthwash blm suspension SWISH AND SPIT 10 ML FOUR TIMES A DAY NEEDED FOR MUCOSITIS [place] ([facility]) benzonatate 100 MG Oral Capsule [place] ([facility]) Amoxicillin 875 MG / Clavulanate 125 MG Oral Tablet [place] ([facility])
== END 2021-05-31 02:04 | disposition left against medical advice (07) ==
LOC: M ED 23:12
DX: Z53.29 Procedure and treatment not carried out because of patient's decision for other reasons (principal)

== ENCOUNTER → 2021-08-06 | Outpatient (CLI) | payer OTHER ==
[~2021-08-06] MED LIST changes: -OMEP-221 PO; +OMEP40CA5 PO
== END | disposition home or self-care (01) ==
LOC: M LAB 15:26
PROVIDERS: ATTEND Internal Medicine Pulmonary Disease
DX: J96.01 Acute respiratory failure with hypoxia (principal)

== ENCOUNTER 2021-11-05 01:01 | Inpatient (IN) | payer MEDICAID, OTHER ==
[~2021-11-05] VITALS: Ht 175.3 cm; Wt 100.0 kg
[2021-11-05 02:06] LABS: BASO # 0.1 10^3/uL (0.0-0.2); BASO % 0.4 % (0.0-1.0); EOS # 0.1 10^3/uL (0.0-0.5); EOS % 0.4 % (0.0-3.0); HEMATOCRIT 46.8 % (42.0-52.0); HEMOGLOBIN 16.3 g/dl (13.5-17.5); LYMPH # 3.5 10^3/uL (1.5-5.0); LYMPH % 25.8 % (24.0-44.0); MEAN CORPUSCULAR HEMOGLOBIN 29.4 pg (27.0-33.0); MEAN CORPUSCULAR HGB CONC 34.8 g/dl (32.0-36.5); MEAN CORPUSCULAR VOLUME 84.3 fl (80.0-96.0); MONO # 0.6 10^3/uL (0.0-0.8); MONO % 4.7 % (2.0-8.0); NEUTROPHILS # 9.3 10^3/uL (1.5-8.5); NEUTROPHILS % 68.6 % (36.0-66.0); PLATELET COUNT, AUTOMATED 243 10^3/uL (150-450); RED BLOOD COUNT 5.55 10^6/uL (4.30-6.10); WHITE BLOOD COUNT 13.5 10^3/uL (4.0-10.0)
[2021-11-05 02:35] LABS: ALBUMIN 4.5 GM/DL (3.2-5.2); ALT/SGPT 81 U/L (12-78); BILIRUBIN,DIRECT 0.2 MG/DL (0.0-0.2); BILIRUBIN,TOTAL 0.4 MG/DL (0.2-1.0); BLOOD UREA NITROGEN 6 MG/DL (7-18); CALCIUM LEVEL 9.5 MG/DL (8.5-10.1); CARBON DIOXIDE LEVEL 26 MEQ/L (21-32); CHLORIDE LEVEL 108 MEQ/L (98-107); CREATININE FOR GFR 0.87 MG/DL (0.70-1.30); GLOMERULAR FILTRATION RATE > 60.0 (>60); GLUCOSE, FASTING 137 MG/DL (70-100); POTASSIUM SERUM 3.6 MEQ/L (3.5-5.1); SODIUM LEVEL 141 MEQ/L (136-145); TOTAL PROTEIN 7.9 GM/DL (6.4-8.2)
[2021-11-05 02:41] LABS: AMPHETAMINES LEVEL URINE NEGATIVE (NEGATIVE); BARBITURATES URINE NEGATIVE (NEGATIVE); BENZODIAZEPINES URINE NEGATIVE (NEGATIVE); CANNABINOIDS URINE POSITIVE (NEGATIVE); COCAINE METABOLITE URINE NEGATIVE (NEGATIVE); METHADONE URINE NEGATIVE (NEGATIVE); OPIATES URINE NEGATIVE (NEGATIVE); PHENCYCLIDINE URINE NEGATIVE (NEGATIVE)
[2021-11-05 02:44] LABS: RSV AMPLIFICATION NEGATIVE (NEGATIVE)
[2021-11-05 07:29] LABS: GC DNA AMPLIFICATION NEGATIVE (NEGATIVE)
[2021-11-05] MEDS ORDERED: ARNU1INH3 INH (08:35)
[2021-11-05] MEDS ORDERED: TRUL10IN SC (08:35)
[2021-11-05] MEDS ORDERED: ATOR40TA75 PO (08:35)
[2021-11-05] MEDS ORDERED: HOME MED LIST COMPLETE! XX SCH (08:40)
[2021-11-05] MEDS: HumaLOG INSULIN (NovoLOG) PER UNIT SC SCH ×2 (13:39→20:15)
[2021-11-06] MEDS ORDERED: ENTER DRUG NAME HERE (PATIENT'S OWN MED) SC ONE (00:50)
[2021-11-06] MEDS: HumaLOG INSULIN (NovoLOG) PER UNIT SC SCH ×3 (08:09→18:39)
[2021-11-06 08:30] LABS: ACETAMINOPHEN LEVEL < 2.0 UG/ML (10.0-30.0); ETHYL ALCOHOL (ETHANOL) < 0.003 % (0.000-0.010); SALICYLATE LEVEL < 1.7 MG/DL (5.0-30.0)
[2021-11-06] MEDS ORDERED: DULAGLUTIDE 0.75 MG/0.5 ML SC ONE (09:00)
[2021-11-06] MEDS: OMEPRAZOLE 20MG CAP PO SCH (09:20)
[2021-11-06] MEDS: ATORVASTATIN 20 MG TAB PO SCH (09:20)
[2021-11-06] MEDS: FLUTICASONE HFA 220 MCG 12 GM INHALER (FLOVENT) INH SCH (09:35)
[2021-11-07] MEDS: HumaLOG INSULIN (NovoLOG) PER UNIT SC SCH ×3 (07:57→18:15)
[2021-11-07] MEDS: ATORVASTATIN 20 MG TAB PO SCH (08:53)
[2021-11-07] MEDS: OMEPRAZOLE 20MG CAP PO SCH (08:54)
[2021-11-07] MEDS: FLUTICASONE HFA 220 MCG 12 GM INHALER (FLOVENT) INH SCH (09:00)
[2021-11-08] MEDS: HumaLOG INSULIN (NovoLOG) PER UNIT SC SCH ×4 (08:24→21:00)
[2021-11-08] MEDS: ATORVASTATIN 20 MG TAB PO SCH (08:30)
[2021-11-08] MEDS: FLUTICASONE HFA 220 MCG 12 GM INHALER (FLOVENT) INH SCH ×2 (08:33→21:55)
[2021-11-08] MEDS: OMEPRAZOLE 20MG CAP PO SCH (08:33)
[2021-11-08] MEDS ORDERED: ACETAMINOPHEN 500 MG TAB PO ONE (12:40)
[2021-11-08] MEDS ORDERED: ACETAMINOPHEN TAB 650MG DOSE (2X325MG) PO PRN (13:45)
[2021-11-08] MEDS ORDERED: diphenhydrAMINE 25MG CAP PO PRN (13:45)
[2021-11-08] MEDS ORDERED: MOM 30ML SUSPENSION UDC PO PRN (13:45)
[2021-11-08] MEDS ORDERED: MAALOX 30 ML SUSP *UDC PO PRN (13:45)
[2021-11-08] MEDS ORDERED: OLANZapine ORAL DISINTEGRATING TAB 5MG PO PRN (13:45)
[2021-11-08] MEDS ORDERED: traZODone 50 MG TAB PO PRN (13:45)
[2021-11-08] MEDS ORDERED: GLUCOSE 4GM CHEW TABLET PO PRN (13:55)
[2021-11-08] MEDS ORDERED: DEXTROSE 50% 50 ML SYRINGE IV PRN (13:55)
[2021-11-08] MEDS ORDERED: GLUCAGON INJ 1MG VIAL SC PRN (13:55)
[2021-11-08 18:46] VITALS: BP 121/61
[2021-11-08 20:51] VITALS: BP 121/61
[2021-11-08] MEDS ORDERED: HumaLOG INSULIN (NovoLOG) PER UNIT SC SCH (21:00)
[2021-11-09 06:29] VITALS: BP 112/58
[2021-11-09] MEDS: HumaLOG INSULIN (NovoLOG) PER UNIT SC SCH ×4 (06:48→20:45)
[2021-11-09] MEDS ORDERED: INFLUENZA QUADRIVALENT PF VACCINE 0.5ML SYRINGE IM ONE (09:00)
[2021-11-09] MEDS ORDERED: FLUTICASONE PROP 0.05% NASAL SPRAY 16 GM (FLONASE) NARES SCH (09:00)
[2021-11-09] MEDS: NICOTINE 21MG/24HR 1 EA TRANSDERMAL TD SCH (11:02)
[2021-11-09] MEDS: ATORVASTATIN 20 MG TAB PO SCH (11:02)
[2021-11-09] MEDS: OMEPRAZOLE 20MG CAP PO SCH (11:02)
[2021-11-09] MEDS: FLUTICASONE HFA 220 MCG 12 GM INHALER (FLOVENT) INH SCH ×2 (11:03→20:45)
[2021-11-09 18:00] VITALS: BP 125/75
[2021-11-10] MEDS: HumaLOG INSULIN (NovoLOG) PER UNIT SC SCH (06:52)
[2021-11-10 07:02] VITALS: BP 108/58
[2021-11-10] MEDS: NICOTINE 21MG/24HR 1 EA TRANSDERMAL TD SCH (09:00)
[2021-11-10] MEDS: OMEPRAZOLE 20MG CAP PO SCH (09:40)
[2021-11-10] MEDS: FLUTICASONE HFA 220 MCG 12 GM INHALER (FLOVENT) INH SCH (09:40)
[2021-11-10] MEDS: ATORVASTATIN 20 MG TAB PO SCH (09:40)
== END 2021-11-10 10:24 | disposition home or self-care (01) | DRG 754 ==
LOC: M ED 01:01 → M ED INP 11-08 13:43 → UNDOADMIN 11-08 13:43 → M ED INP 11-08 14:37 → M PSY 11-08 18:49
PROVIDERS: ADMIT Psychiatry & Neurology Psychiatry; ATTEND Psychiatry & Neurology Psychiatry
DX: F43.21 Adjustment disorder with depressed mood (principal); E11.9 Type 2 diabetes mellitus without complications; R45.851 Suicidal ideations; Z90.49 Acquired absence of other specified parts of digestive tract; Z20.822 Contact with and (suspected) exposure to COVID-19; F17.290 Nicotine dependence, other tobacco product, uncomplicated; Z63.0 Problems in relationship with spouse or partner; Z79.4 Long term (current) use of insulin

== ENCOUNTER 2021-12-11 16:16 | Emergency (ER) | payer MEDICAID, OTHER ==
[~2021-12-11] VITALS: Ht 175.3 cm; Wt 92.9 kg
[~2021-12-11 16:16] MED LIST changes: +ARNU1INH3 INH; +ATOR40TA75 PO; +TRUL10IN SC
[2021-12-11 16:17] VITALS: BP 127/77
== END 2021-12-11 18:35 | disposition home or self-care (01) ==
LOC: M ED 16:16
DX: S83.91XA Sprain of unspecified site of right knee, initial encounter (principal); X58.XXXA Exposure to other specified factors, initial encounter; Y92.89 Other specified places as the place of occurrence of the external cause; Y99.0 Civilian activity done for income or pay; E11.9 Type 2 diabetes mellitus without complications; K21.9 Gastro-esophageal reflux disease without esophagitis; Z79.899 Other long term (current) drug therapy; Z79.84 Long term (current) use of oral hypoglycemic drugs; Z79.4 Long term (current) use of insulin

== ENCOUNTER → 2021-12-31 | Outpatient (REF) | payer OTHER | LOC: M LAB REF 22:02 | PROVIDERS: ATTEND Physician Assistant | DX: J02.9 Acute pharyngitis, unspecified (principal) ==

== ENCOUNTER 2022-01-03 03:23 | Emergency (ER) | payer OTHER ==
[~2022-01-03] VITALS: Ht 175.3 cm; Wt 94.9 kg
[2022-01-03 03:24] VITALS: BP 139/92
== END 2022-01-03 04:40 | disposition left against medical advice (07) ==
LOC: M ED 03:23
DX: Z53.29 Procedure and treatment not carried out because of patient's decision for other reasons (principal)

== ENCOUNTER 2022-01-12 19:52 | Emergency (ER) | payer OTHER ==
[~2022-01-12] VITALS: Ht 172.7 cm; Wt 93.3 kg
[2022-01-12 19:53] VITALS: BP 127/85
[2022-01-12] MEDS ORDERED: METF10004 PO (19:58)
== END 2022-01-12 21:09 | disposition home or self-care (01) ==
LOC: M ED 19:52
DX: S80.02XA Contusion of left knee, initial encounter (principal); W10.8XXA Fall (on) (from) other stairs and steps, initial encounter; Y92.018 Other place in single-family (private) house as the place of occurrence of the external cause; E11.9 Type 2 diabetes mellitus without complications; K21.9 Gastro-esophageal reflux disease without esophagitis

== ENCOUNTER → 2022-01-21 | Outpatient (CLI) | payer OTHER | LOC: M RAD 15:53 | PROVIDERS: ATTEND Student in an Organized Health Care Education/Training Program | DX: M79.641 Pain in right hand (principal) ==

== ENCOUNTER 2022-02-17 09:21 | Emergency (ER) | payer OTHER ==
[~2022-02-17] VITALS: Ht 175.3 cm; Wt 94.8 kg
[2022-02-17] MEDS ORDERED: SUCRALFATE 1 GM TAB PO ONE (11:40)
[2022-02-17] MEDS ORDERED: PANTOPRAZOLE 40MG VIAL IV ONE (11:40)
[2022-02-17] MEDS ORDERED: KETOROLAC 30 MG/ML 1ML VIAL IV ONE (11:40)
[2022-02-17] MEDS ORDERED: GI COCKTAIL 50ML BTL(HYOSCYAMINE/MAALOX/LIDOCAINE VISCOUS)(1:3:1) PO ONE (11:40)
[2022-02-17] MEDS ORDERED: NS 1,000 ML IV ONE (11:40)
[2022-02-17 12:13] LABS: BASO # 0.1 10^3/uL (0.0-0.2); BASO % 0.4 % (0.0-1.0); EOS # 0.2 10^3/uL (0.0-0.5); EOS % 1.7 % (0.0-3.0); HEMATOCRIT 43.9 % (42.0-52.0); HEMOGLOBIN 15.2 g/dl (13.5-17.5); LYMPH # 4.2 10^3/uL (1.5-5.0); LYMPH % 34.7 % (24.0-44.0); MEAN CORPUSCULAR HEMOGLOBIN 29.5 pg (27.0-33.0); MEAN CORPUSCULAR HGB CONC 34.6 g/dl (32.0-36.5); MEAN CORPUSCULAR VOLUME 85.1 fl (80.0-96.0); MONO # 0.7 10^3/uL (0.0-0.8); MONO % 5.7 % (2.0-8.0); NEUTROPHILS # 6.9 10^3/uL (1.5-8.5); NEUTROPHILS % 57.3 % (36.0-66.0); PLATELET COUNT, AUTOMATED 252 10^3/uL (150-450); RED BLOOD COUNT 5.16 10^6/uL (4.30-6.10); WHITE BLOOD COUNT 12.1 10^3/uL (4.0-10.0)
[2022-02-17 12:38] LABS: CK-MB VALUE MASS < 1.0 NG/ML (<3.6); CPK CREATINE PHOSPHOKINASE 133 U/L (39-308); MB/CK RELATIVE INDEX 0.75 (< OR =4)
[2022-02-17 12:41] LABS: ERYTHROCYTE SEDIMENTATION RATE 4 mm/hr (0-15)
[2022-02-17] MEDS ORDERED: CARA1TAB6 PO (12:50)
[2022-02-17] MEDS ORDERED: AZIT-10 PO (12:50)
[2022-02-17 13:08] VITALS: BP 110/65
== END 2022-02-17 13:18 | disposition home or self-care (01) ==
LOC: M ED 09:21
DX: R91.8 Other nonspecific abnormal finding of lung field (principal); R07.89 Other chest pain; D72.829 Elevated white blood cell count, unspecified; E11.9 Type 2 diabetes mellitus without complications; Z79.84 Long term (current) use of oral hypoglycemic drugs
CPT/HCPCS: 36415; 71046; 80047; 82550; 82553; 85025; 85652; 93005; 96361; 96374; 96375; 99284; C9113; J1885

== ENCOUNTER 2022-02-19 22:19 | Emergency (ER) | payer OTHER ==
[~2022-02-19] VITALS: Ht 175.3 cm; Wt 93.4 kg
[~2022-02-19 22:19] MED LIST changes: +AZIT-10 PO; +CARA1TAB6 PO
[2022-02-19 22:21] VITALS: BP 132/82
== END 2022-02-19 23:20 | disposition left against medical advice (07) ==
LOC: M ED 22:19
DX: Z53.21 Procedure and treatment not carried out due to patient leaving prior to being seen by health care provider (principal)

== ENCOUNTER 2022-07-02 07:18 | Emergency (ER) | payer OTHER ==
[~2022-07-02] VITALS: Ht 175.3 cm; Wt 98.0 kg
[~2022-07-02 07:18] MED LIST changes: +ALBU6.7H6 INH; -PROV108A INH
[2022-07-02 07:19] VITALS: BP 133/72
[2022-07-02] MEDS ORDERED: IBUPROFEN 800 MG TAB PO ONE (09:45)
[2022-07-02] MEDS ORDERED: OSELTAMIVIR PHOSPHATE 75 MG CAP (TAMIFLU) PO ONE (09:50)
[2022-07-02] MEDS ORDERED: OSEL75CA PO (10:30)
== END 2022-07-02 10:48 | disposition home or self-care (01) ==
LOC: M ED 07:18
DX: J09.X2 Influenza due to identified novel influenza A virus with other respiratory manifestations (principal); E11.9 Type 2 diabetes mellitus without complications; J45.909 Unspecified asthma, uncomplicated; Z90.89 Acquired absence of other organs; Z79.84 Long term (current) use of oral hypoglycemic drugs; Z79.899 Other long term (current) drug therapy

== ENCOUNTER 2022-07-23 01:30 | Emergency (ER) | payer OTHER ==
[~2022-07-23] VITALS: Ht 175.3 cm; Wt 98.2 kg
[~2022-07-23 01:30] MED LIST changes: +DIPH-435; -DIPH25CA32
[2022-07-23 01:32] VITALS: BP 137/81
== END 2022-07-23 03:43 | disposition left against medical advice (07) ==
LOC: M ED 01:30
DX: Z53.21 Procedure and treatment not carried out due to patient leaving prior to being seen by health care provider (principal)

== ENCOUNTER 2022-10-11 08:59 | Emergency (ER) | payer OTHER ==
[~2022-10-11] VITALS: Ht 172.7 cm; Wt 100.0 kg
[~2022-10-11 08:59] MED LIST changes: +LIDO15SO4 PO; -LIDO2SOL17 PO
[2022-10-11] MEDS ORDERED: KETO10TAB PO (11:51)
[2022-10-11] MEDS ORDERED: CYCL-707 PO (11:51)
[2022-10-11 12:00] VITALS: BP 129/77
== END 2022-10-11 12:03 | disposition home or self-care (01) ==
LOC: M ED 08:59
DX: S23.3XXA Sprain of ligaments of thoracic spine, initial encounter (principal); V49.40XA Driver injured in collision with unspecified motor vehicles in traffic accident, initial encounter; Y92.410 Unspecified street and highway as the place of occurrence of the external cause; Y93.89 Activity, other specified; Y99.8 Other external cause status; Z79.899 Other long term (current) drug therapy

== ENCOUNTER 2023-04-25 11:51 | Emergency (ER) | payer OTHER ==
[~2023-04-25] VITALS: Ht 170.2 cm; Wt 99.9 kg
[~2023-04-25 11:51] MED LIST changes: +CYCL-707 PO; -DIPH-319; +DIPH-429; +LIDO15SO PO; -LIDO15SO4 PO; +PEN-308 SC; -PEN1MIS21 SC
[2023-04-25] MEDS ORDERED: ACETAMINOPHEN 500 MG TAB PO ONE (14:35)
[2023-04-25 16:00] VITALS: BP 135/64; TEMP 97.3; O2SAT 98
== END 2023-04-25 16:01 | disposition home or self-care (01) ==
LOC: M ED 11:51
DX: S99.912A Unspecified injury of left ankle, initial encounter (principal); M25.572 Pain in left ankle and joints of left foot; Y92.89 Other specified places as the place of occurrence of the external cause; W18.43XA Slipping, tripping and stumbling without falling due to stepping from one level to another, initial encounter; Z79.899 Other long term (current) drug therapy

== ENCOUNTER 2023-04-27 12:37 | Emergency (ER) | payer OTHER ==
[~2023-04-27] VITALS: Ht 172.7 cm; Wt 98.8 kg
[2023-04-27 12:37] VITALS: BP 134/78; TEMP 98.2; O2SAT 99
[2023-04-27] MEDS ORDERED: ACET-683 PO (12:47)
[2023-04-27] MEDS ORDERED: NAPR-837 PO (15:38)
== END 2023-04-27 15:47 | disposition home or self-care (01) ==
LOC: M ED 12:37
DX: S80.02XA Contusion of left knee, initial encounter (principal); W22.09XA Striking against other stationary object, initial encounter; Z88.0 Allergy status to penicillin; E11.9 Type 2 diabetes mellitus without complications; Z79.899 Other long term (current) drug therapy

== ENCOUNTER 2023-09-09 08:44 | Emergency (ER) | payer MEDICAID, OTHER ==
[~2023-09-09] VITALS: Ht 175.3 cm; Wt 99.1 kg
[~2023-09-09 08:44] MED LIST changes: +ACET-683 PO
[2023-09-09 11:19] LABS: BASO % 0.5 % (0.0-1.0); EOS # 0.2 10^3/uL (0.0-0.5); EOS % 2.3 % (0.0-3.0); HEMATOCRIT 46.4 % (42.0-52.0); HEMOGLOBIN 16.1 g/dl (13.5-17.5); LYMPH # 2.6 10^3/uL (1.5-5.0); LYMPH % 35.5 % (24.0-44.0); MEAN CORPUSCULAR HEMOGLOBIN 28.8 pg (27.0-33.0); MEAN CORPUSCULAR HGB CONC 34.7 g/dl (32.0-36.5); MONO # 0.4 10^3/uL (0.0-0.8); MONO % 5.1 % (2.0-8.0); NEUTROPHILS # 4.2 10^3/uL (1.5-8.5); NEUTROPHILS % 56.5 % (36.0-66.0); PLATELET COUNT, AUTOMATED 198 10^3/uL (150-450); RED BLOOD COUNT 5.59 10^6/uL (4.30-6.10); WHITE BLOOD COUNT 7.4 10^3/uL (4.0-10.0)
[2023-09-09 11:39] LABS: LIPASE 35 U/L (12-53)
[2023-09-09 11:41] LABS: ALBUMIN 4.3 G/DL (3.2-5.2); ALKALINE PHOSPHATASE 93 U/L (46-116); ALT/SGPT 105 U/L (7.0-40); AST/SGOT 38 U/L (<34); BILIRUBIN,DIRECT 0.2 MG/DL (<0.4); BILIRUBIN,TOTAL 0.5 MG/DL (0.3-1.2); BLOOD UREA NITROGEN 13 MG/DL (9-23); CALCIUM LEVEL 9.4 MG/DL (8.5-10.1); CARBON DIOXIDE LEVEL 29 MMOL/L (20-31); CHLORIDE LEVEL 105 MMOL/L (98-107); CREATININE FOR GFR 0.71 MG/DL (0.70-1.30); GLOMERULAR FILTRATION RATE > 60.0 (>60); GLUCOSE, FASTING 190 MG/DL (60-100); POTASSIUM SERUM 4.4 MMOL/L (3.5-5.1); SODIUM LEVEL 138 MMOL/L (136-145); TOTAL PROTEIN 7.5 G/DL (5.7-8.2)
[2023-09-09] MEDS ORDERED: ISOVUE-370 76% 100ML VIAL As Ordered ONE (12:25)
[2023-09-09] MEDS: NS 1,000 ML IV ONE (13:03)
[2023-09-09] MEDS: KETOROLAC 30 MG/ML 1ML VIAL IV ONE (13:03)
[2023-09-09] MEDS ORDERED: METF-838 PO (15:38)
[2023-09-09 15:47] VITALS: BP 121/75; TEMP 97.1; O2SAT 98
== END 2023-09-09 15:50 | disposition home or self-care (01) ==
LOC: M ED 08:44
DX: R10.9 Unspecified abdominal pain (principal); E11.9 Type 2 diabetes mellitus without complications; K21.9 Gastro-esophageal reflux disease without esophagitis; F17.220 Nicotine dependence, chewing tobacco, uncomplicated; Z79.84 Long term (current) use of oral hypoglycemic drugs; Z79.899 Other long term (current) drug therapy
CPT/HCPCS: 74177; 80048; 80076; 81001; 83690; 85025; 96361; 96374; 99284; J1885; Q9967

== ENCOUNTER 2023-10-04 19:50 | Emergency (ER) | payer MEDICAID, OTHER ==
[~2023-10-04 19:50] MED LIST changes: -LIDO15SO PO; +LIDO15SO8 PO; +METF-838 PO
[2023-10-04 22:17] LABS: BASO % 0.5 % (0.0-1.0); EOS # 0.1 10^3/uL (0.0-0.5); EOS % 1.6 % (0.0-3.0); HEMATOCRIT 42.1 % (42.0-52.0); HEMOGLOBIN 14.7 g/dl (13.5-17.5); LYMPH # 2.1 10^3/uL (1.5-5.0); LYMPH % 27.4 % (24.0-44.0); MEAN CORPUSCULAR HEMOGLOBIN 28.6 pg (27.0-33.0); MEAN CORPUSCULAR HGB CONC 34.9 g/dl (32.0-36.5); MEAN CORPUSCULAR VOLUME 81.9 fl (80.0-96.0); MONO # 0.6 10^3/uL (0.0-0.8); MONO % 7.8 % (2.0-8.0); NEUTROPHILS # 4.8 10^3/uL (1.5-8.5); NEUTROPHILS % 62.6 % (36.0-66.0); PLATELET COUNT, AUTOMATED 207 10^3/uL (150-450); RED BLOOD COUNT 5.14 10^6/uL (4.30-6.10); WHITE BLOOD COUNT 7.6 10^3/uL (4.0-10.0)
[2023-10-04 22:35] LABS: CK-MB VALUE MASS < 1.0 NG/ML (<3.6)
[2023-10-04 22:36] LABS: LIPASE 43 U/L (12-53)
[2023-10-04 22:38] LABS: ALKALINE PHOSPHATASE 85 U/L (46-116); ALT/SGPT 92 U/L (7.0-40); AST/SGOT 32 U/L (<34); BILIRUBIN,DIRECT 0.2 MG/DL (<0.4); BILIRUBIN,TOTAL 0.6 MG/DL (0.3-1.2); BLOOD UREA NITROGEN 10 MG/DL (9-23); CALCIUM LEVEL 8.4 MG/DL (8.5-10.1); CARBON DIOXIDE LEVEL 25 MMOL/L (20-31); CHLORIDE LEVEL 107 MMOL/L (98-107); CPK CREATINE PHOSPHOKINASE 187 U/L (46-171); CREATININE FOR GFR 0.79 MG/DL (0.70-1.30); GLOMERULAR FILTRATION RATE > 60.0 (>60); GLUCOSE, FASTING 209 MG/DL (60-100); MB/CK RELATIVE INDEX 0.53 (< OR =4); POTASSIUM SERUM 3.4 MMOL/L (3.5-5.1); SODIUM LEVEL 139 MMOL/L (136-145); TOTAL PROTEIN 6.8 G/DL (5.7-8.2)
[2023-10-04 22:40] LABS: FREE T4 1.03 NG/DL (0.89-1.76); THYROID STIMULATING HORMONE 1.374 uIU/ML (0.55-4.78)
[2023-10-04 22:47] LABS: RSV AMPLIFICATION NEGATIVE (NEGATIVE)
[2023-10-04 22:50] VITALS: BP 125/74; TEMP 98.5; O2SAT 92
== END 2023-10-04 23:08 | disposition home or self-care (01) ==
LOC: M ED 19:50
DX: R07.9 Chest pain, unspecified (principal); E11.9 Type 2 diabetes mellitus without complications; K21.9 Gastro-esophageal reflux disease without esophagitis; Z87.891 Personal history of nicotine dependence

== ENCOUNTER 2024-07-02 20:31 | Emergency (ER) | payer OTHER ==
[~2024-07-02] VITALS: Ht 175.3 cm; Wt 95.5 kg
[2024-07-02 20:34] VITALS: BP 139/81; TEMP 98.4; O2SAT 98
[2024-07-02 21:00] LABS: BASO # 0.1 10^3/uL (0.0-0.2); BASO % 0.4 % (0.0-1.0); EOS # 0.3 10^3/uL (0.0-0.5); EOS % 2.5 % (0.0-3.0); HEMOGLOBIN 15.2 g/dl (13.5-17.5); LYMPH # 4.2 10^3/uL (1.5-5.0); LYMPH % 36.2 % (24.0-44.0); MEAN CORPUSCULAR HGB CONC 34.5 g/dl (32.0-36.5); MEAN CORPUSCULAR VOLUME 83.8 fl (80.0-96.0); MONO # 0.7 10^3/uL (0.0-0.8); MONO % 5.6 % (2.0-8.0); NEUTROPHILS # 6.4 10^3/uL (1.5-8.5); PLATELET COUNT, AUTOMATED 246 10^3/uL (150-450); RED BLOOD COUNT 5.25 10^6/uL (4.30-6.10); WHITE BLOOD COUNT 11.6 10^3/uL (4.0-10.0)
[2024-07-02 21:28] LABS: CK-MB VALUE MASS < 1.0 NG/ML (<3.6)
[2024-07-02 21:30] LABS: BLOOD UREA NITROGEN 14 MG/DL (9-23); CALCIUM LEVEL 9.9 MG/DL (8.5-10.1); CARBON DIOXIDE LEVEL 26 MMOL/L (20-31); CHLORIDE LEVEL 107 MMOL/L (98-107); CREATININE FOR GFR 0.77 MG/DL (0.70-1.30); GLOMERULAR FILTRATION RATE > 60.0 (>60); GLUCOSE, FASTING 132 MG/DL (60-100); SODIUM LEVEL 142 MMOL/L (136-145)
[2024-07-02 21:36] LABS: CPK CREATINE PHOSPHOKINASE 227 U/L (46-171); MB/CK RELATIVE INDEX 0.44 (< OR =4)
[2024-07-02 22:48] LABS: CK-MB VALUE MASS < 1.0 NG/ML (<3.6); CPK CREATINE PHOSPHOKINASE 222 U/L (46-171); MB/CK RELATIVE INDEX 0.45 (< OR =4)
== END 2024-07-02 23:00 | disposition left against medical advice (07) ==
LOC: M ED 20:31
DX: Z53.21 Procedure and treatment not carried out due to patient leaving prior to being seen by health care provider (principal)

== ENCOUNTER 2024-08-20 06:52 | Emergency (ER) | payer OTHER ==
[~2024-08-20] VITALS: Ht 172.7 cm; Wt 96.2 kg
[2024-08-20] MEDS: ONDANSETRON 4MG 2ML VIAL IV ONE (08:04)
[2024-08-20] MEDS: IPRATROPIUM 0.5MG/ALBUTEROL 2.5MG INH SOL UD 3ML (DUONEB) NEB ONE (08:04)
[2024-08-20 08:16] LABS: BASO % 0.2 % (0.0-1.0); EOS # 0.1 10^3/uL (0.0-0.5); EOS % 0.4 % (0.0-3.0); HEMATOCRIT 48.3 % (42.0-52.0); HEMOGLOBIN 16.8 g/dl (13.5-17.5); LYMPH # 0.9 10^3/uL (1.5-5.0); MEAN CORPUSCULAR HGB CONC 34.8 g/dl (32.0-36.5); MEAN CORPUSCULAR VOLUME 83.3 fl (80.0-96.0); MONO # 0.9 10^3/uL (0.0-0.8); NEUTROPHILS # 13.6 10^3/uL (1.5-8.5); NEUTROPHILS % 87.1 % (36.0-66.0); PLATELET COUNT, AUTOMATED 221 10^3/uL (150-450); WHITE BLOOD COUNT 15.6 10^3/uL (4.0-10.0)
[2024-08-20 08:48] LABS: BLOOD UREA NITROGEN 22 MG/DL (9-23); CARBON DIOXIDE LEVEL 26 MMOL/L (20-31); CHLORIDE LEVEL 103 MMOL/L (98-107); CREATININE FOR GFR 0.84 MG/DL (0.70-1.30); GLOMERULAR FILTRATION RATE > 60.0 (>60); GLUCOSE, FASTING 216 MG/DL (60-100); POTASSIUM SERUM 4.7 MMOL/L (3.5-5.1); SODIUM LEVEL 139 MMOL/L (136-145)
[2024-08-20 09:35] LABS: HEMOGLOBIN A1c 7.3 % (4.0-6.0)
[2024-08-20] MEDS: METOCLOPRAMIDE INJ 10MG/2ML VIAL IV ONE (10:05)
[2024-08-20] MEDS: ONDANSETRON 4MG ORAL DISINTEGRATING TAB PO ONE (10:34)
[2024-08-20] MEDS ORDERED: ISOVUE-370 76% 100ML VIAL As Ordered ONE (10:41)
[2024-08-20 11:12] VITALS: BP 107/73
[2024-08-20 11:22] VITALS: O2SAT 95
[2024-08-20 11:30] VITALS: TEMP 99.3
== END 2024-08-20 11:39 | disposition home or self-care (01) ==
LOC: M ED 06:52
DX: A09 Infectious gastroenteritis and colitis, unspecified (principal); J45.909 Unspecified asthma, uncomplicated
CPT/HCPCS: 71045; 74177; 80048; 83036; 85025; 87486; 87581; 87633; 87798; 93005; 96374; 99284; J2405; Q9967

== ENCOUNTER 2025-02-26 19:46 | Emergency (ER) | payer OTHER ==
[~2025-02-26] VITALS: Ht 172.7 cm; Wt 99.1 kg
[2025-02-26 21:54] VITALS: BP 122/81; TEMP 97.8; O2SAT 94
== END 2025-02-27 01:06 | disposition left against medical advice (07) ==
LOC: M ED 19:46
DX: Z53.21 Procedure and treatment not carried out due to patient leaving prior to being seen by health care provider (principal)

== ENCOUNTER 2025-04-24 08:29 | Emergency (ER) | payer OTHER ==
[~2025-04-24] VITALS: Ht 172.7 cm; Wt 98.1 kg
[~2025-04-24 08:29] MED LIST changes: -IBUP-1022 PO; +IBUP600T42 PO
[2025-04-24 12:00] VITALS: BP 117/76; TEMP 97.9; O2SAT 96
== END 2025-04-24 12:20 | disposition home or self-care (01) ==
LOC: M ED 08:29
DX: S93.402A Sprain of unspecified ligament of left ankle, initial encounter (principal); Y92.9 Unspecified place or not applicable; Y93.9 Activity, unspecified; Y99.0 Civilian activity done for income or pay; W01.0XXA Fall on same level from slipping, tripping and stumbling without subsequent striking against object, initial encounter